=== PATIENT | female | born 1970 | race Caucasian/White ===

== ENCOUNTER → 2017-10-02 15:59 | Outpatient (CLI) | payer MEDICAID, SELFPAY | PROVIDERS: Family Provider Internal Medicine; PCP Internal Medicine; Visit Provider Otolaryngology | DX: J02.9 Acute pharyngitis, unspecified (principal) | CPT/HCPCS: 87070; 87077 ==

== ENCOUNTER → 2018-08-01 06:21 | Outpatient (CLI) | payer MEDICAID, SELFPAY ==
--- NOTE | 2018-08-01 09:21 | STRESSREP ---
Stress Test Report Date: 08-01-2018 Procedure: Pharmacologic stress nuclear imaging study Indications: shortness of breath/dyspnea; fatigue Consent: Per the patient Procedure: The patient underwent pharmacologic (Regadenoson) evaluation with a peak heart rate of 131 beats per minute (76% predicted maximal heart rate) and a peak blood pressure of 144/60 mmHg. The baseline ECG demonstrated normal sinus rhythm . The peak pharmacologic ECG demonstrated no obvious ECG changes . There were no cardiac dysrhythmias pretest, during pharmacologic infusion, or recovery. There was no complaint of chest discomfort during pharmacologic infusion or recovery. The examination was discontinued secondary to completion of protocol. Impression: 1. Pharmacologic (Regadenoson) evaluation 2. Peak pharmacologic ECG with no obvious ECG changes . 3. There were no cardiac dysrhythmias pretest, during pharmacologic infusion, or recovery. 4. Nuclear images pending Myocardial perfusion imaging study: Technique: The patient was injected with 14.8 millicuries of technetium 99m Cardiolite and subsequently rest SPECT Cardiolite nuclear imaging was obtained in the horizontal long, vertical long, and short axis views. The patient underwent pharmacologic (Regadenoson) evaluation with a peak heart rate of 131 beats per minute (76 % percent predicted maximal heart rate) and a peak blood pressure of 144/60 mmHg. The patient was injected with 44.9 millicuries of technetium 99m Cardiolite and subsequently stress SPECT Cardiolite nuclear imaging was obtained in the horizontal long, vertical long, and short axis views. A gated Cardiolite study at peak stress was obtained. Interpretation: Rest and stress SPECT Cardiolite nuclear imaging status post realignment, normalization, and attenuation correction demonstrate a small area of subtle diminished tracer uptake near the distal anteroseptal segments without significant change between rest and stress . There is end systolic thickening and brightening. The gated Cardiolite study demonstrates myocardial thickening and inward wall motion. The reported LVEF is 73 %. Impression: 1. Rest and stress SPECT Cardiolite nuclear imaging demonstrate myocardial perfusion changes. Compounded with the effects of soft tissue attenuation/artifact with no myocardial perfusion changes considered diagnostic for associated stress induced myocardial ischemia or previous myocardial injury/infarction . 2. The gated Cardiolite study reports an LVEF of 73 %. This note was generated with [employer] software. It may contain incorrect words, spelling, and punctuation that were not noted in checking the note before signing.
== END ==
PROVIDERS: Family Provider Internal Medicine; PCP Internal Medicine; Referring Provider Internal Medicine; Visit Provider Internal Medicine
DX: R60.1 Generalized edema (principal); R06.02 Shortness of breath; R07.2 Precordial pain
CPT/HCPCS: 78452; 93017; A9500; A4216; J2785

== ENCOUNTER 2018-08-08 10:42 | Day surgery (SDC) | payer MEDICAID, SELFPAY ==
[2016-08-24 05:40] VITALS: BMI 50.8
--- NOTE | 2018-07-31 09:45 | PCM.HP.BLA ---
History and Physical Date of Admission: 08/08/18 Pre-Op History and Physical HPI: The patient is a 48 year old female presenting for pre-operative visit. She is scheduled for hysteroscopy, dilation and curettage, possible resection, for menorrhagia, thickened endometrium and suspected endometrial polyp on 08/08/18. Procedure discussed along with risks, benefits and complications. Other alternatives discussed for management. Consent form signed? Yes. PAST MEDICAL HISTORY Diagnosis Date ? Abdominal pain, left upper quadrant ? Abdominal pain, unspecified site ? Acquired spondylolisthesis 07/25/2010 ? Acute gastritis without mention of hemorrhage ? Calcaneal spur 10/15/2009 ? Chronic obstructive pulmonary disease (COPD) (HCC) ? Cough ? DEPRESSIVE DISORDER NEC 06/15/2007 ? Depressive disorder, not elsewhere classified ? Diabetes mellitus without mention of complication Diabetes mellitus ? Diabetes mellitus without mention of complication Diabetes mellitus type 2 ? Displacement of lumbar intervertebral disc without myelopathy 12/30/2009 ? Esophageal reflux 10/01/2006 ? Esophagitis, unspecified ? Fibromyalgia 07/25/2010 ? Generalized anxiety disorder Anxiety, Generalized ? Hemorrhage of gastrointestinal tract, unspecified ? Hypertension ? Internal hemorrhoids without mention of complication ? Left carpal tunnel syndrome 09/11/2013 ? Lumbago 08/05/2008 ? Migraine 03/02/2009 ? Mixed stress and urge urinary incontinence ? Myalgia and myositis, unspecified ? Obesity, unspecified Obesity ? ZHAO (obstructive sleep apnea) 05/01/2011 uses C-PAP ? PMH - PAST MEDICAL HISTORY OF allergic syndrome; gets allergy shots ? PMH - PAST MEDICAL HISTORY OF bipolar ? Psoriasis and similar disorders ? Sleep apnea ? 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 Tubular adenoma of colon 02/05/15 Colonoscopy and EGD at [facility] ? Unspecified asthma(493.90) Dr. Grissom saw in the past ? Vitamin D deficiency 11/29/2010 on calcitriol PAST SURGICAL HISTORY Procedure Laterality Date ? DELIVERY ONLY 2001,2003 ? COLONOSCOP W/ OR W/O [facility] SPEC 02/05/2015 Colonoscopy out pt [facility] ? EGD W/O [facility] SPECIMEN W/BX 05/02/06 ? EGD W/O OR W/BRUSH/WASH 02/05/2015 EGD out pt [facility] ? PAST SURGICAL HISTORY OF 07/10 carpal tunnel right hand ? PAST SURGICAL HISTORY OF 1973 upper lip - plastic surgery. ? PAST SURGICAL HISTORY OF 2010 right plantar fasciectomy ? SIGMOIDOSCOPY FLEX DIAG 05/22/06 Current Outpatient Prescriptions: ibuprofen (MOTRIN) 800 mg tablet Take 1 tablet by mouth every 8 hours as needed. FOR PAIN. Disp: 30 tablet Rfl: 1 norethindrone (AYGESTIN) 5 mg tablet Take 1 tablet by mouth as directed. 1 tablet 3 times daily until bleeding stops then twice daily for 2 days then 1 tablet daily for 2 days. Disp: 30 tablet Rfl: 0 Insulin [place], Disposable, (BD INSULIN PEN NEEDLE UF) 29 gauge x 1/2 ndle Use 1 Needle For Each Dose 3-4 Times Daily With Novolog Pen For Meals and At Bedtime if Needed Disp: 100 Each Rfl: 11 perflutren lipid microspheres (DEFINVariad Diagnostics) 1.1 mg/mL injection (to be provided with echo procedure) Inject 1.3 mL intravenously as directed. Disp: 1.3 mL Rfl: 0 oxyCODONE IR (ROXICODONE) 10 mg tab Take 1 tablet by mouth twice daily for 30 days. May take one pill extra per day as needed for exacerbation of pain (not daily).Earliest Fill Date: 06/19/18 Disp: 80 tablet Rfl: 0 oxyCODONE IR (ROXICODONE) 10 mg tab Take 1 tablet by mouth twice daily for 30 days. May take one pill extra per day as needed for exacerbation of pain (not daily).Earliest Fill Date: 07/19/18 Disp: 80 tablet Rfl: 0 [START ON 08/18/2018] oxyCODONE IR (ROXICODONE) 10 mg tab Take 1 tablet by mouth twice daily for 30 days. May take one pill extra per day as needed for exacerbation of pain (not daily).Earliest Fill Date: 08/18/18 Disp: 80 tablet Rfl: 0 losartan (COZAAR) 25 mg tablet take 1 tablet by mouth once daily Disp: 90 tablet Rfl: 3 blood sugar diagnostic (BLOOD GLUCOSE TEST) test strip Test blood sugar(s) 5 times daily. (Test strips brand covered by [employer]) Dx: Type 2 DM - Uncontrolled E11.65 Insulin: Yes Disp: 400 Strip Rfl: 11 FREESTYLE DUSTY 14 DAY READER mis use as directed for BLOOD GLUCOSE as directed Disp: 1 Each Rfl: 0 flash glucose sensor (FREESTYLE DUSTY 14 DAY SENSOR) kit Check sugars as directed for control of DM. E11.65, Z79.4 Disp: 1 Kit Rfl: 11 insulin aspart U-100 (NOVOLOG FLEXPEN U-100 INSULIN) 100 unit/mL inpn WITH FIRST BITE OF FOOD, 30 UNITS W/BREAKFAST, 30 UNITS W/LUNCH, 30 UNITS W/DINNER; MAY ADJUST WITH SLIDING SCALE GIVEN HIGH BLOOD SUGAR Disp: 90 mL Rfl: 1 BASAGLAR KWIKPEN U-100 INSULIN 100 unit/mL (3 mL) inpn inject 55 units subcutaneously twice a day as directed Disp: 45 mL Rfl: 11 fluticasone (FLOVENT HFA) 220 mcg/actuation inhaler Inhale 2 Puffs as instructed twice daily. Disp: 1 Inhaler Rfl: 11 oxyCODONE IR (ROXICODONE) 10 mg tab Take 1 tablet by mouth twice daily for 30 days. May take one pill extra per day as needed for exacerbation of pain (not daily).Earliest Fill Date: 04/20/18 Disp: 80 tablet Rfl: 0 metroNIDAZOLE 0.75 % cream Apply 1 application to affected area twice daily. Disp: 1 Tube Rfl: 1 mupirocin (BACTROBAN) 2 % ointment Apply 1 application to affected area three times daily. Location: torso wounds as directed till healed Disp: 1 Tube Rfl: 0 nystatin (MYCOSTATIN) cream apply to affected area twice a day if needed Disp: 60 g Rfl: 2 Omeprazole 40 mg capsule take 1 capsule by mouth once daily Disp: 90 capsule Rfl: 3 Cholecalciferol, Vitamin D3, 1,000 unit cap Take 1 capsule by mouth once daily. Disp: Rfl: DULoxetine (CYMBALTA) 30 mg capsule take 1 capsule by mouth once daily Disp: 30 capsule Rfl: 11 verapamil SR (CALAN SR, ISOPTIN SR) 120 mg CR tablet take 1 tablet by mouth at bedtime Disp: 30 tablet Rfl: 11 hydroCHLOROthiazide (HYDRODIURIL, ESIDRIX) 25 mg tablet Take 1 tablet by mouth once daily. As needed for swelling from fluid retention Disp: 30 tablet Rfl: 12 atenolol (TENORMIN) 25 mg tablet Take 1 tablet by mouth once daily. Disp: 90 tablet Rfl: 4 CPAP CPAP @ 13 cm of water with humidification. Mask (per patient preference) optional chin strap (if indicated) , filters, tubing, humidifier and lifetime supplies. EPR set at 3. (G47.33) ZHAO (obstructive sleep apnea) Disp: 1 Device Rfl: 0 montelukast (SINGULAIR) 10 mg tablet take 1 tablet by mouth at bedtime Disp: 90 tablet Rfl: 4 COMPOUNDED PRESCRIPTION CPAP supplies--mask per patient preference, tubing, humidifier as needed. G47.33, Z99.89 ZHAO on CPAP Disp: 1 Each Rfl: 0 Blood-Glucose Meter monitoring kit Glucose Meter of Choice (covered by [facility]) - Kit - Dx: Type 2 DM - Uncontrolled E11.65, Insulin Yes Disp: 1 Each Rfl: 0 blood sugar diagnostic (FREESTYLE LITE STRIPS) test strip Test blood sugars 5 times per day and as needed. Dx: E11.65; Insulin: yes Disp: 400 Strip Rfl: 4 cyclobenzaprine (FLEXERIL) 10 mg tablet Take 1 tablet by mouth twice daily as needed. Disp: 60 tablet Rfl: 2 Incontinence Pad, Liner, Disp pads Change pad 3 to 5 times daily. N39.46 Disp: 150 Each Rfl: 5 cycloSPORINE (RESTASIS) 0.05 % ophthalmic emulsion Use 1 Drop in both eyes twice daily. Disp: Rfl: 0 COMPOUNDED PRESCRIPTION Bilateral compression Knee Hi 20-30 mm. ICD 10; 459.81; 782.3 Disp: 1 Each Rfl: 0 Compression Knee Highs KNEE HIGH COMPRESSION STOCKINGS 30-40 MM. DX: (I87.8/459.81) Venous stasis(R60.0782.3) Bilateral edema of lower extremity Disp: 2 Each Rfl: 0 albuterol HFA (PROVENTIL HFA, VENTOLIN HFA) 90 mcg/actuation inhaler Inhale 2 puffs as instructed every 4 hours as needed for wheezing/shortness of breath. Disp: 1 Inhaler Rfl: 5 albuterol 2.5 mg /3 mL (0.083 %) nebulizer solution Use 3 mL via nebulizer every 4 hours as needed for Wheezing/Shortness of Breath. Disp: 50 Vial Rfl: 5 Lancets (FREESTYLE LANCETS) lancets tests sugar 4 to 6 times daily DX:250.02 Insulin dependent (this is corrected RX) Disp: 200 Each Rfl: 11 Blood-Glucose Meter (FREESTYLE LITE METER) Misc monitoring kit 1 Each. Freestyle LITE Meter Kit - DX 250.02 Disp: 1 Each Rfl: 0 Cane Misc Rika 1 Each. Diagnosis: 724.2 Back pain Disp: 1 Device Rfl: 0 No current facility-administered medications for this visit. ALLERGIES: Vicodin [Hydrocodone-Acetaminophen]; Codeine Antitussive Cough; Latex; Relafen [Nabumetone] PERSONAL HISTORY: Social History Marital status: Legally Spouse name: Colby Years of education: Number of children: 3 Social History Main Topics Smoking status: Former Smoker Packs/day: 0.00 Years: 0.00 Quit date: 05/02/1987 Smokeless tobacco: Never Used Comment: social smoker in teens Alcohol use: No Drug use: No Sexual activity: Not Currently Partners with: Male FAMILY HISTORY: FAMILY HISTORY Problem Relation Age of Onset ? Cancer Father AT 71 R/T BLADDER ? Heart Father ? Diabetes Mother ? Asthma Mother ? Heart Mother ? Asthma Sister ? other (ulcers) Sister REVIEW OF SYMPTOMS: GENERAL: denies fevers or chills ENDOCRINOLOGY: has not been on steroids Cardiology : denies palpitations , some CP being evaluated by PCP office Respiratory: denies increased/new SOB or cough Hematology: denies history of prolonged bleeding or easy bruising or VTE Allergy: Denies history of personal or family history of allergy to anesthesia PHYSICAL EXAMINATION: VITALS: There were no vitals taken for this visit. GENERAL: The patient is well nourished, well hydrated in no acute distress. , The patient is oriented to time, place, and person. NECK: Supple. No lynphadenopathy, normal thyroid, no thyromegaly. LUNGS: Clear to auscultation bilaterally. no wheezes, rhonchi or rales HEART: Regular rate and rhythm, Normal heart sounds and No murmurs or gallops pelvic US 07/08/18: Report Summary: Overall impression: difficult to clearly visualize uterus due to position and body ?habitus. Uterus appears top normal size. Endometrial thickness 19.9mm. Right ovary not visualized Left ovary has small simple appearing cyst No free fluid in CDS. Follow- up: f/u as clinically indicated. Indication: Abnormal Uterine Bleeding. History: Last menstrual period: 06/21/2018. 18th day of cycle. Gynecological Ultrasonography: Uterus: normal, anteverted, axial. Size: Longitudinal 117 mm. Anterio- posterior 53 mm. Transverse 66 mm. Volume: 214.3 ml. Endometrium: endometrium clearly visualized. Endometrium thickness total: 19.9 mm. Right Ovary: subvisualized. Left Ovary: normal. Visible. Left Ovary size: 29 mm x 27 mm x 22 mm. Volume: 9.0 ml. Cysts Left Ovary: Cyst 1: Mean value: 19 mm. D1: 22 mm. D2: 15 mm. D3: 20 mm. Volume: 3 ml. Simple cyst. Cul de Sac / Pouch of Alexi: no free fluid visible. Method: transvaginal ultrasound, transabdominal ultrasound, color Doppler, 2 D, 3 D. View: suboptimal - the uterus was not seen clearly because of its position EMB- 07/16/18 secretory endometrium IMPRESSION: menorrhagia, thickened endometrium, suspected endometrial polyp PLAN: The risks/benefits/alternatives and personal involved for the planned hysteroscopy, dilation and curettage, possible polyp resection were reviewed with the patient. Her questions were answered to her satisfaction and she desires to proceed. Consent was signed. I reviewed with her postop instructions and expectations. Surgery is pending results of her cardiac evaluation. She understands if the cardiac testing is abnormal, surgery will likely need to be postponed. Continue Aygestin until surgery. I have reviewed and updated past medical and surgical history, medications and allergies this history and physical was completed on my office on 07/30/2017 Ann Marie Mckeon M.D.
[2018-08-08 11:05] VITALS: BP 141/64; PULSE 72; RESP 16; TEMP 36.6; O2SAT 98; BMI 51.5
[2018-08-08 11:08] LABS: Internal QC Validated? YES +Cl - CLEAR BKGD; Pregnancy, Urine Negative Negative
[2018-08-08 11:16] LABS: Hematocrit 40.9 % (37-47); Hemoglobin 12.6 g/dl (12.0-15.0); Mean Corp Hgb Conc 30.8 g/gl (32-36); Mean Corpuscular Volume 90.9 fL (81-99); Mean Platelet Vol. 9.4 fl (6.2-12.0); Platelet Count 306 K/mm3 (150-450); RBC Distribution Width CV 13.1 % (11.6-14.6); RBC Distribution Width SD 43.2 fl (35.1-43.9); Scan Indicated on CBC? Y/N NO
[2018-08-08] MEDS: Celecoxib 100 MG Capsule PO (11:20)
[2018-08-08] MEDS: Acetaminophen 500 MG Tablet 1000 MG PO (11:20)
[2018-08-08 11:21] LABS: Bedside Glucose 232 mg/dL (70-110)
[2018-08-08 11:29] LABS: Anion Gap 7 (5-15); BUN 13 mg/dL (7-18); BUN/Creat Ratio 14.6 RATIO (10-20); Calcium,Total 8.8 mg/dL (8.5-10.1); Chloride 107 mmol/L (98-107); Creatinine, Serum 0.89 mg/dL (0.55-1.02); EST Glomerular Filtration Rate 72 mL/min (>60); Est Glom Filt Rate - Afr Amer 87 mL/min (>60); Estimated Creatinine Clearance 60.47 ml/min; Glucose 209 mg/dL (74-106); Potassium 4.1 mmol/L (3.5-5.1); Sodium Level 136 mmol/L (136-145)
--- NOTE | 2018-08-08 12:15 | EMB_PTH ---
PATIENT: MYLES YEAGER ABUACCT #:[id number] [place] [facility] [id number] AGE/SX: 48/F ROOM: RE08/08/[address]: Dr. Ann Marie Mckeon MD : 1970 BED: DIS: 08/08/2018 SPEC #: [id number] RECD: 08/08/18 14:10 STATUS: NILE MATOSTravis #: [id number] KENZIE: 08/08/18 12:[address]: Ann Marie Mckeon DEPT: SURGICAL PATHOLOGY RECD BY: Bryant Stockton ENTERED: 08/08/18 14:39 SP TYPE: ENDOM BX/C OTHR DR: Dr. Debo Bowers MD Tissues: Endometrium, NOS Procedures: Surgery Specimen Level IV HEADER OPERATION: Hysteroscopy, D & C, Symphion PRE-OP DIAGNOSIS: Menorrhagia, thickened endometrium, suspected endometrial polyp TISSUE SUBMITTED: Endometrial curettings MICROSCOPIC DIAGNOSIS Endometrium, curettings: Extensive benign stromal hyperplasia suggestive of exogenous hormonal effect. Mildly disordered weakly proliferative endometrium. AM:edgar 08/09/18 MICROSCOPIC DESCRIPTION Slides are reviewed. GROSS DESCRIPTION Received in fixative is one container labeled with the patient's name and designated endometrial curettings. The specimen consists of multiple irregular fragments of pink-jones soft tissue that in aggregate measure 8.5 x 7.5 x 0.3 cm. The specimen is totally submitted in six cassettes. / AM:edgar 08/08/18 TC:5 CPT: 68183
--- NOTE | 2018-08-08 13:06 | DCINST_ITS ---
Discharge Diet: No Restrictions Discharge Activity: Return to Normal Activity, May Shower, May Take a Tub Bath - in 2 weeks. May shower in (days): 1 May resume sexual activity in: 2 weeks Call your doctor if your incision/area has: Sudden Increased Bleeding, Foul Smelling Discharge Call your doctor if you observe: Fever of 101 or Higher, Inability to urinate, Using more than one pad per hour - for 2 hrs in a row Allergies/Adverse Reactions: Allergies codeine Allergy (Verified 08/01/18 15:03) Nausea hydrocodone bitartrate [From Vicodin] Adverse Reaction (Verified 08/01/18 15:02) Nausea latex Adverse Reaction (Verified 08/01/18 15:02) Rash nabumetone [From Relafen] Adverse Reaction (Verified 08/07/18 15:26) Upset Stomach SEASONAL Allergy (Mild, Uncoded 08/01/18 15:02) Other Medications to take at Discharge Atenolol [Tenormin (beta erick)] 12.5 mg PO QHS 07/05/13 Duloxetine Hcl [Cymbalta] 30 mg PO DAILY 07/05/13 Novolog Flexpen 30 units SC TID 07/05/13 Fluticasone 220 Mcg [Flovent 220 Mcg] 2 puff INHALATION BID 02/03/15 Omeprazole [Prilosec] 40 mg PO QHS 02/03/15 Oxycodone CR [Oxycontin] 10 mg PO TID PRN 02/03/15 Hydrochlorothiazide [Hctz] 12.5 mg PO DAILY PRN 08/01/18 Insulin Glargine,Hum.rec.anlog [Basaglar Kwikpen U-100] 110 unit SQ QHS 08/01/18 Montelukast [Singulair] 10 mg PO DAILY 08/01/18 [place]rotone 08/08/18 Primary Care Physician: Debo Bowers MD [Primary Care Provider] - Test Results: Test results from this visit will be discussed in further detail at your follow- up appointment, if applicable. Please Follow Up With: Ann Marie Mckeon MD - [phone] When: 2-4 weeks or as needed
--- NOTE | 2018-08-08 13:39 | OP.PCM_ITS ---
Report of Operation Date of Procedure: 08/08/18 Pre-Operative Diagnosis: AUB, thickened endometrium Post-Operative Diagnosis: same Surgery/Procedure Performed:: hysteroscopy, dilation and curettage with Symphion device Description of Surgical Findings:: thickened endometrium, normal cervix and vagina associate professor of education: Casandra Banda, MS3 Type of Anesthesia:: MAC/Supplemental/Local Special Medications: none Specimen's removed: Endometrial curetting Drains: none Estimated Blood Loss (mL): 20 Fluids Replaced: 800 cc LR Description of Procedure: The patient was taken to the OR where she was prepped and draped in dorsal lithotomy position. The weighted speculum was placed in the vagina and the anterior lip of the cervix was grasped with a single-tooth tenaculum. A paracervical block was administered with 1% Xylocaine. The cervix was dilated serially with Hegar dilators. The Implanon hysteroscope was placed into the uterine cavity and thickened endometrium was noted. No discrete polyps or fibroids. Bilateral tubal ostia were identified. Symphony on resection device was placed through the hysteroscope. Resection of the thickened endometrium and a polypoid appearing lesions was performed. At the end of the resection, there were no other discrete abnormalities and the endometrium appeared normal shape and size.. The instruments were removed from the vagina. The specimen was handed off and sent to pathology. All sponge and needle counts were correct. Vaginal sweep was performed by me. The patient was awakened and taken to the recovery room in stable condition. Hysteroscopic fluid deficit was 150 cc of normal saline. Grafts/Implants Used: none - Complications none - Admit VTE Documentation VTE Present on Admission: No VTE Mechan Device Prophylaxis: SCD's VTE Pharm Prophylaxis ordered?: Yes Reason prophylaxis not ordered:: Procedure Not Indicated
[2018-08-08 13:45] VITALS: BP 116/78; BP 141/64; PULSE 86; RESP 16; TEMP 36.9; O2SAT 93
[2018-08-08 13:50] VITALS: BP 111/65; BP 141/64; PULSE 86; RESP 16; O2SAT 94
[2018-08-08 13:50] LABS: Bedside Glucose 172 mg/dL (70-110)
[2018-08-08 13:55] VITALS: BP 106/67; BP 141/64; PULSE 84; RESP 16; O2SAT 98
[2018-08-08 14:00] VITALS: BP 113/70; BP 141/64; PULSE 86; RESP 16; TEMP 37.2; O2SAT 99
[2018-08-08 15:20] VITALS: BP 141/64
== END 2018-08-08 15:24 | disposition home or self-care (01) ==
LOC: SDC 10:43 → AC 10:44
PROVIDERS: Family Provider Internal Medicine; PCP Internal Medicine; Referring Provider Obstetrics & Gynecology; Visit Provider Obstetrics & Gynecology
PROC: 0UB98ZZ Excision of Uterus, Via Natural or Artificial Opening Endoscopic (ICD-10-PCS; CPT 58558; principal; 2018-08-08 12:05)
DX: N85.01 Benign endometrial hyperplasia (principal); J44.9 Chronic obstructive pulmonary disease, unspecified; F32.9 Major depressive disorder, single episode, unspecified; E11.9 Type 2 diabetes mellitus without complications; K21.0 Gastro-esophageal reflux disease with esophagitis; F41.9 Anxiety disorder, unspecified; I10 Essential (primary) hypertension; G47.33 Obstructive sleep apnea (adult) (pediatric); E55.9 Vitamin D deficiency, unspecified; J45.909 Unspecified asthma, uncomplicated; E66.9 Obesity, unspecified; Z68.43 Body mass index [BMI] 50.0-59.9, adult; Z79.4 Long term (current) use of insulin; Z79.891 Long term (current) use of opiate analgesic; Z79.51 Long term (current) use of inhaled steroids; Z79.899 Other long term (current) drug therapy; Z87.891 Personal history of nicotine dependence
CPT/HCPCS: 58558; 36415; 80048; 81025; 82962; 85027; 88305; J7120; J2405

== ENCOUNTER → 2019-01-07 | Outpatient (CLI) | payer MEDICAID, SELFPAY ==
[2019-01-07 13:34] VITALS: BMI 51.5
--- NOTE | 2019-01-07 13:53 | RAD_ITS ---
STUDY: X-RAY - LEFT WRIST REASON FOR EXAM: Painful lump at the anterior lateral wrist for 3 months. TECHNIQUE: 3 view(s) of the wrist were obtained. COMPARISON: None. FINDINGS: Normal visualized distal radius and ulna. Normal radiocarpal articulation. Normal distal radioulnar articulation. Normal carpal bones. There is a small bone island in the distal pole of the scaphoid. Normal carpal articulations. Normal carpometacarpal articulation of the thumb. Normal second through fifth carpometacarpal articulations. Normal visualized metacarpal bones. The soft tissue structures are unremarkable. RAD/Wrist min 3 Views IMPRESSION: Normal x-ray examination of the left wrist. Electronically Signed: Julian Nazario MD at 10:53 EDT Tel , Service support ,
== END | disposition home or self-care (01) ==
LOC: HPRAD 13:51
PROVIDERS: Family Provider Internal Medicine; PCP Internal Medicine; Referring Provider Orthopaedic Surgery; Visit Provider Orthopaedic Surgery
DX: M25.532 Pain in left wrist (principal); R22.9 Localized swelling, mass and lump, unspecified
CPT/HCPCS: 73110

== ENCOUNTER → 2019-01-08 13:54 | Outpatient (CLI) | payer MEDICAID, SELFPAY ==
[2019-01-07 13:34] VITALS: BMI 51.5
--- NOTE | 2019-01-08 13:56 | US_ITS ---
STUDY: SUPERFICIAL ULTRASOUND - LEFT WRIST REASON FOR EXAM: Female, 48 years old. Left breast lump, anterior, painful TECHNIQUE: A superficial ultrasound was performed with real-time and static navarrete-scale imaging. COMPARISON: None. FINDINGS: Left lateral anterior wrist area of lump. Cystlike focus partially contained within the subcutaneous fat, partially protruding into the deeper soft tissues, potentially associated with tendon sheath, partially compressible, no apparent hyperemia on color Doppler, minimal internal debris, sharply circumscribed margins. 9.3 x 9.6 x 7.7 mm. US/Other Unlisted US Procedure IMPRESSION: Cystlike fluid collection as described above, favoring ganglion cyst. There are no acute inflammatory features in the surrounding soft tissues. Electronically Signed: Pineda Meredith MD at 17:37 EDT Tel , Service support ,
== END ==
PROVIDERS: Family Provider Internal Medicine; PCP Internal Medicine; Referring Provider Orthopaedic Surgery; Visit Provider Orthopaedic Surgery
DX: M67.439 Ganglion, unspecified wrist (principal)
CPT/HCPCS: 76999

== ENCOUNTER 2019-01-13 05:31 | Day surgery (SDC) | payer MEDICAID, SELFPAY ==
[2019-01-07 13:34] VITALS: BMI 51.5
--- NOTE | 2019-01-10 18:50 | PCM.HP.BLA ---
History and Physical Date of Admission: 01/13/19 HISTORY AND PHYSICAL ? Malathi Brito Al [facility] 1970 ? REFERRING PHYSICIAN: ??Debo Bowers MD ? CHIEF COMPLAINT: ??Consult ? HPI: The patient is a 48 year old female referred for endoscopy. ?Malathi notes a personal history of colon polyp on her last colonoscopy, which was performed by Dr. Mancia on 02/05/15 at [facility]. ?This returned as an adenomatous polyp.??Patient also had an upper endoscopy at that time which showed mild gastritis.??Patient?NOTES recent change in bowel habits, states around once a week will have yellow stools which go from constipation to loose. ?She also complains of constant left-sided upper abdominal discomfort without particular alleviating factors. ?Food of any type seems to aggravate symptoms. ?Associated symptoms include nausea and bloating. ?Notes has been taking gas medication with some minimal relief. ? ? Patient's past medical history is significant for gastritis, COPD, depression, type II diabetes mellitus, GERD, obstructive sleep apnea, psoriasis, morbid obesity. ?Patient denies any problems with sedation in the past. ?Had stress test earlier this year which showed no evidence of ischemia. ? ? ? PAST?MEDICAL?HISTORY PAST MEDICAL HISTORY Diagnosis Date ? Abdominal pain, left upper quadrant ? ? Abdominal pain, unspecified site ? ? Acquired spondylolisthesis 07/25/2010 ? Acute gastritis without mention of hemorrhage ? ? Calcaneal spur 10/15/2009 ? Chronic obstructive pulmonary disease (COPD) (HCC) ? ? Cough ? ? DEPRESSIVE DISORDER NEC 06/15/2007 ? Depressive disorder, not elsewhere classified ? ? Diabetes mellitus without mention of complication ? ? Diabetes mellitus ? Diabetes mellitus without mention of complication ? ? Diabetes mellitus type 2 ? Displacement of lumbar intervertebral disc without myelopathy 12/30/2009 ? Esophageal reflux 10/01/2006 ? Esophagitis, unspecified ? ? Fibromyalgia 07/25/2010 ? Generalized anxiety disorder ? ? Anxiety, Generalized ? Hemorrhage of gastrointestinal tract, unspecified ? ? Hypertension ? ? Internal hemorrhoids without mention of complication ? ? Left carpal tunnel syndrome 09/11/2013 ? Lumbago 08/05/2008 ? Migraine 03/02/2009 ? Mixed stress and urge urinary incontinence ? ? Myalgia and myositis, unspecified ? ? Obesity, unspecified ? ? Obesity ? ZHAO (obstructive sleep apnea) 05/01/2011 ? uses C-PAP ? PMH - PAST MEDICAL HISTORY OF ? ? allergic syndrome; gets allergy shots ? PMH - PAST MEDICAL HISTORY OF ? ? bipolar ? Psoriasis and similar disorders ? ? Sleep apnea ? ? 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 Tubular adenoma of colon 02/05/15 ? Colonoscopy and EGD at [facility] ? Unspecified asthma(493.90) ? ? Dr. Grisosm saw in the past ? Vitamin D deficiency 11/29/2010 ? on calcitriol ? ? PAST?SURGICAL?HISTORY PAST SURGICAL HISTORY Procedure Laterality Date ? DELIVERY ONLY ? 2001,2003 ? COLONOSCOP W/ OR W/O [facility] SPEC ? 02/05/2015 ? Colonoscopy out pt [facility] ? EGD W/O [facility] SPECIMEN W/BX ? 05/02/06 ? EGD W/O OR W/BRUSH/WASH ? 02/05/2015 ? EGD out pt [facility] ? HYSTEROSCOPY, SURGICAL; WITH SAMPLI ? 08/08/2018 ? AUB, menorrhagia ? PAST SURGICAL HISTORY OF ? 07/10 ? carpal tunnel right hand ? PAST SURGICAL HISTORY OF ? 1973 ? upper lip - plastic surgery. ? PAST SURGICAL HISTORY OF ? 2010 ? right plantar fasciectomy ? SIGMOIDOSCOPY FLEX DIAG ? 05/22/06 ? ? CURRENT?MEDICATIONS ? Current Outpatient Medications: oxyCODONE IR (ROXICODONE) 10 mg tab Take 1 tablet by mouth twice daily for 30 days. May take one pill extra per day as needed for exacerbation of pain (not daily). cyclobenzaprine (FLEXERIL) 10 mg tablet Take 0.5-1 tablets by mouth twice daily as needed. insulin aspart U-100 (NOVOLOG FLEXPEN U-100 INSULIN) 100 unit/mL (3 mL) inpn WITH FIRST BITE OF FOOD, 30 UNITS W/BREAKFAST, 30 UNITS W/LUNCH, 30 UNITS W/DINNER; MAY ADJUST WITH SLIDING SCALE GIVEN HIGH BLOOD SUGAR triamcinolone acetonide (NASACORT) 55 mcg nasal inhaler Use 2 Sprays in the nose once daily. (Patient taking differently: Use 2 Sprays in the nose as needed. ) albuterol HFA (PROVENTIL HFA, VENTOLIN HFA) 90 mcg/actuation inhaler Inhale 2 puffs as instructed every 4 hours as needed for wheezing/shortness of breath. montelukast (SINGULAIR) 10 mg tablet Take 1 tablet by mouth daily at bedtime. atenolol (TENORMIN) 25 mg tablet Take 1 tablet by mouth once daily. DULoxetine (CYMBALTA) 30 mg capsule Take 1 capsule by mouth once daily. omeprazole (PRILOSEC) 20 mg capsule Take 1 capsule by mouth daily before breakfast. 1/2 hr before meal. As directed. flash glucose scanning reader (FREESTYLE DUSTY 14 DAY READER) [facility] [place] as directed for BLOOD GLUCOSE. Replace every 14 days ibuprofen (MOTRIN) 800 mg tablet take 1 tablet by mouth every 8 hours if needed for pain Insulin [place], Disposable, (BD INSULIN PEN NEEDLE UF) 29 gauge x 1/2 ndle Use 1 Needle For Each Dose 3-4 Times Daily With Novolog Pen For Meals and At Bedtime if Needed blood sugar diagnostic (BLOOD GLUCOSE TEST) test strip Test blood sugar(s) 5 times daily. ?(Test strips brand covered by [employer]) Dx: Type 2 DM - Uncontrolled E11.65 ?Insulin: Yes flash glucose sensor (FREESTYLE DUSTY 14 DAY SENSOR) kit Check sugars as directed for control of DM. ?E11.65, Z79.4 BASAGLAR KWIKPEN U-100 INSULIN 100 unit/mL (3 mL) inpn inject 55 units subcutaneously twice a day as directed fluticasone (FLOVENT HFA) 220 mcg/actuation inhaler Inhale 2 Puffs as instructed twice daily. metroNIDAZOLE 0.75 % cream Apply 1 application to affected area twice daily. (Patient taking differently: Apply 1 application to affected area as needed. ) nystatin (MYCOSTATIN) cream apply to affected area twice a day if needed Cholecalciferol, Vitamin D3, 1,000 unit cap Take 1 capsule by mouth once daily. CPAP CPAP @ 13 cm of water with humidification. Mask (per patient preference) optional chin strap (if indicated) , filters, tubing, humidifier and lifetime supplies. EPR set at 3. (G47.33) ZHAO (obstructive sleep apnea) COMPOUNDED PRESCRIPTION CPAP supplies--mask per patient preference, tubing, humidifier as needed. ?G47.33, Z99.89 ?ZHAO on CPAP Blood-Glucose Meter monitoring kit Glucose Meter of Choice (covered by [employer]) - Kit - Dx: ?Type 2 DM - Uncontrolled E11.65, Insulin Yes blood sugar diagnostic (FREESTYLE LITE STRIPS) test strip Test blood sugars 5 times per day and as needed. ?Dx: E11.65; Insulin: yes Incontinence Pad, Liner, Disp pads Change pad 3 to ?5 times daily. N39.46 COMPOUNDED PRESCRIPTION Bilateral compression Knee Hi 20-30 mm. ?ICD 10; ?459.81; 782.3 Compression Knee Highs KNEE HIGH COMPRESSION STOCKINGS 30-40 MM. ?DX: ?(I87.8/459.81) Venous stasis(R60.0782.3) Bilateral edema of lower extremity Lancets (FREESTYLE LANCETS) lancets tests sugar 4 to 6 times daily DX:250.02 ???Insulin dependent (this is corrected RX) Blood-Glucose Meter (FREESTYLE LITE METER) Misc monitoring kit 1 Each. Freestyle LITE Meter Kit - DX 250.02 Cane Misc Rika 1 Each. Diagnosis: 724.2 Back pain peg 3350-Electrolytes (GOLYTELY) 236-22.74-6.74 -5.86 gram suspension Take 4,000 mL by mouth one time only for 1 dose. [START ON 01/15/2019] oxyCODONE IR (ROXICODONE) 10 mg tab Take 1 tablet by mouth twice daily for 30 days. May take one pill extra per day as needed for exacerbation of pain (not daily).Earliest Fill Date: 01/15/19 [START ON 02/14/2019] oxyCODONE IR (ROXICODONE) 10 mg tab Take 1 tablet by mouth twice daily for 30 days. May take one pill extra per day as needed for exacerbation of pain (not daily).Earliest Fill Date: 02/14/19 fluconazole (DIFLUCAN) 150 mg tablet Take ?by mouth. Take at onset of yeast infection. Repeat after 5 to 7 days if ongoing symptoms. May treat recurrent episodes as needed. (Patient not taking: Reported on 01/09/2019 ) hydroCHLOROthiazide (HYDRODIURIL, ESIDRIX) 25 mg tablet Take 1 tablet by mouth once daily. As needed for swelling from fluid retention (Patient not taking: Reported on 01/09/2019 ) verapamil SR (CALAN SR, ISOPTIN SR) 120 mg CR tablet Take 1 tablet by mouth daily at bedtime. (Patient not taking: Reported on 01/09/2019 ) mupirocin (BACTROBAN) 2 % ointment Apply 1 application to affected area three times daily. Location: torso wounds as directed till healed (Patient not taking: Reported on 01/09/2019 ) perflutren lipid microspheres (DEFINITY) 1.1 mg/mL injection (to be provided with echo procedure) Inject 1.3 mL intravenously as directed. (Patient not taking: Reported on 01/09/2019 ) losartan (COZAAR) 25 mg tablet take 1 tablet by mouth once daily (Patient not taking: Reported on 01/09/2019) cycloSPORINE (RESTASIS) 0.05 % ophthalmic emulsion Use 1 Drop in both eyes twice daily. ? No current facility-administered medications for this visit.? ? ALLERGIES:?Vicodin [Hydrocodone-Acetaminophen]; Codeine Antitussive Cough; Latex; Relafen [Nabumetone] ? PERSONAL HISTORY:? SOCIAL?HISTORY Social History ??Socioeconomic History ?Marital status: Legally ?Spouse name: Colby ?Number of children: 3 ?Years of education: Not on file ?Highest education level: Not on file ??Occupational History ?Not on file ??Social Needs ?Financial resource strain: Not on file ?Food insecurity: ?Worry: Not on file ?Inability: Not on file ?Transportation needs: ?Medical: Not on file ?Non-medical: Not on file ??Tobacco Use ?Smoking status: Former Smoker ?Quit date: 05/02/1987 ?Years since quittin.7 ?Smokeless tobacco: Never Used ?Tobacco comment: social smoker in teens ??Substance and Sexual Activity ?Alcohol use: No ?Drug use: No ?Sexual activity: Not Currently ?Partners: Male ??Lifestyle ?Physical activity: ?Days per week: Not on file ?Minutes per session: Not on file ?Stress: Not on file ??Relationships ?Social connections: ?Talks on phone: Not on file ?Gets together: Not on file ?Attends christianity service: Not on file ?Active member of club or organization: Not on file ?Attends meetings of clubs or organizations: Not on file ?Relationship status: Not on file ?Intimate partner violence: ?Fear of current or ex partner: Not on file ?Emotionally abused: Not on file ?Physically abused: Not on file ?Forced sexual activity: Not on file ??Other Topics ?Concerns: ?Not on file ??Social History Narrative ?Not on file ? FAMILY HISTORY:? FAMILY?HISTORY FAMILY HISTORY Problem Relation Age of Onset ? Cancer Father ? AT 71 R/T BLADDER ? Heart Father ? ? Diabetes Mother ? ? Asthma Mother ? ? Heart Mother ? ? Brain Cancer Mother ? ? Asthma Sister ? ? other (ulcers) Sister ? ? REVIEW OF SYMPTOMS: ??The review of systems data was entered by the nurse and reviewed by me ? Nursing Notes: Ayala Worley RN ?01/09/2019 ?4:33 PM ?Signed REVIEW OF SYSTEMS: ?General:???The patient notes fatigue, denies weight loss, denies weight gain, notes feeling hot, and notes feelings of cold. ?Eyes: ?The patient denies glaucoma, denies eye injury/surgery, does not wear glasses or contacts. ?Ear/Nose/Throat: ?The patient notes allergies, denies hayfever, denies ear infections, and denies bloody noses. ?Cardiovascular: ?The patient denies chest pain, denies heart disease, denies high blood pressure,denies cardiac stent, denies prior heart attack, denies irregular heart beat, denies high cholesterol, ?denies poor circulation, denies heart failure, other cardiac issues, denies claudication, denies cold feet, denies peripheral arterial stent. ?Respiratory: ?The patient denies tuberculosis, denies pneumonia, denies frequent cough, denies pulmonary embolism, notes shortness of breath, and denies coughing up blood. ?Gastrointestinal: ?The patient denies difficulty swallowing, notes acid reflux, denies ulcers, denies vomiting, denies jaundice/hepatitis, denies gallbladder problems, denies black or tarry stools, denies hemorrhoids, denies bleeding from rectum, denies diverticulitis, notes constipation, denies diarrhea, denies loss of stool control, and denies hernias. ?Kidney/Bladder: ?The patient denies kidney stones, denies urine infections, and denies bloody urine. ?Skin: ?The patient denies a history of skin cancer, denies bleeding/changing moles, and denies a history of skin rash. ?Neurologic: ?The patient denies a history of epilepsy/convulsions, notes headaches, denies head/spinal injuries, and denies stroke/TIA. ?Psychiatric: ?The patient denies psychiatric medications, notes depression, and denies voices, denies substance abuse. ?Endocrine: ?The patient denies thyroid disorders, notes diabetes, and denies hormonal problems. ?Hematologic: ?The patient denies a history of bruising, denies bleeding, and denies anemia, denies blood clots. ?Infections: ?The patient denies a history of measles and mumps, denies rheumatic fever, and denies sexually transmitted diseases. ?Musculoskeletal: ?The patient notes back pain/injury, notes back problems, notes sciatica, denies knee/foot trouble, notes arthritis, or denies gout. ? ? When was patient's last Mammogram screening? unknown ? ?Last Colonoscopy: ?02/2015 ? Ayala Worley RN ? PHYSICAL EXAMINATION: ? General: ?The patient is 48 year old female, well nourished, well hydrated in no acute distress. ?The patient is oriented to time, place, and person. ? VITALS:?Blood pressure 110/56, pulse 104, temperature 36.3 ?C (97.4 ?F), temperature source Temporal Artery, height 158.1 cm (5' 2.25), weight 131.1 kg (289 lb), SpO2 95 %.?Body mass index is 52.44 kg/m?.? ? HEENT: ?Normal cephalic, ataumatic, pupils are equally round, sclera are anicteric, mucous membranes are moist, oropharynx is clear. ?Neck has no masses, asymmetry or lymphadenopathy. ? ? Respiratory: ?Clear to auscultation and percussion. ?Normal respiratory excursion and pattern. ? Cardiac: ?Examination is regular rate and rhythm. ?Normal S1/S2 ? Abdominal exam: ?Soft, nontender, ?with no palpable masses. ?No hepatosplenomegaly. ?No palpable hernias. ? Extremities: ?no clubbing, cyanosis or edema. ?No adenopathy. ? LABORATORY VALUES: As Noted ? RADIOLOGIC STUDIES: ?As Noted ? ? Assessment ? IMPRESSION:?encounter for surveillance colonoscopy due to personal history of colon polyps. ?Abdominal pain, bloating and nausea-plan for EGD in addition to colonoscopy ? PLAN: ?I have reviewed my findings with the surgeon. ?Will plan for upper and lower?endoscopy. ??We discussed the risks and benefits of the planned endoscopy. ?I have informed the patient that complications can occur including failure to complete the endoscopy and perforation. ?The patient had the opportunity to ask questions concerning the planned endoscopy. ?My staff has also explained the procedure to the patient in understandable terms and has given the patient printed material concerning the procedure. ?The patient freely consents to surgery. ? I plan to use?Golytely?bowel preparation ? Patient instructed to contact PCP for instructions regarding diabetic medication, which may require adjustment during bowel preparation and/or day of procedure. ?She may continue her other routine medications as usual ? ? We will plan for Monitored Anesthetic Care. ? ? Diagnoses:?(Z86.010) History of colonic polyps ?(primary encounter diagnosis) (R14.0) Abdominal bloating (R10.9) Left lateral abdominal pain (R11.0) Nausea (R19.4) Change in bowel habits ? ? Ling Bojorquez PA-C
[2019-01-13] VITALS (8 sets, daily range): BP systolic 109–142; BP diastolic 52–86; PULSE 75–86; RESP 14–16; TEMP 36–36.6; O2SAT 94–96; BMI 50.6
--- NOTE | 2019-01-13 | IMM_PTH ---
PATIENT: MYLES YEAGER ABUACCT #:[id number] LOC: EN U#:[id number] AGE/SX: 48/F ROOM: RE01/13/[address]: Dr. Pineda Jha MD : 1970 BED: DIS: 01/13/2019 SPEC #: [id number] RECD: 01/14/19 12:41 STATUS: SOUYenny REQ #: [id number] KENZIE: 01/13/19 00:[address]: Pineda Jha DEPT: IMMUNOHISTOCHEMISTRY RECD BY: Dora Suh ENTERED: 01/14/19 12:42 SP TYPE: IMMUNO OTHR DR: Dr. Debo Bowers MD Tissues: B - Stomach, NOS C - Gastric mucous membrane Procedures: H Pylori (initial) P53 (initial) PHYSICIAN & INSTITUTION [place] [id number] SPECIMEN INFORMATION: Tissue Source: B - Antral biopsy, C - GE junction biopsy Clinical Info: Colon polyps, abdominal pain, bloating, nausea Specimen Number: [id number] B & C CPT code: 66165 x2 METHODOLOGY: Deparaffinized sections of prefer/formalin-fixed tissue or PAP/DQ stained slides are incubated with monoclonal/polyclonal antibodies/oligonucleotide probes. Localization is made via biotin free immunoperoxidase method. Appropriate controls are performed and reacted as expected. Results on target cell population are indicated in the following table: RESULTS: ANTIBODY / CLONE RESULT Block B H Pylori (polyclonal) negative Block C P53 (DO-7) negative These tests were developed and their performance characteristics determined by [facility]. They may not have been cleared or approved by the U.S. Food and Drug Administration. The FDA has determined that such clearance or approval is not necessary. INTERPRETATION: A. Antral biopsy: Negative for Helicobacter pylori organisms. C. GE junction biopsy: No evidence of dysplasia. AM:edgar 01/15/19
[2019-01-13 05:57] LABS: Internal QC Validated? YES +Cl - CLEAR BKGD; Pregnancy, Urine Negative Negative
[2019-01-13 06:16] LABS: Bedside Glucose 96 mg/dL (70-110)
--- NOTE | 2019-01-13 06:30 | EGD_PTH ---
PATIENT: MYLES YEAGER ABUACCT #:[id number] LOC: EN U#:[id number] AGE/SX: 48/F ROOM: RE01/13/[address]: Dr. Pineda Jha MD : 1970 BED: DIS: 01/13/2019 SPEC #: [id number] RECD: 01/13/19 10:22 STATUS: NILE VLADISLAV #: [id number] KENZIE: 01/13/19 06:[address]: Pineda Jha DEPT: SURGICAL PATHOLOGY RECD BY: Arti Wells ENTERED: 01/13/19 12:02 SP TYPE: EGD [facility]OP[facility] DR: Dr. Debo Bowers MD Tissues: A - Jejunum, NOS B - Gastric mucous membrane C - Gastric mucous membrane Procedures: Surgery Specimen Level IV HEADER OPERATION: Colonoscopy, EGD ([facility] [place]) PRE-OP DIAGNOSIS: Personal history of colon polyps, abdominal pain, bloating, nausea TISSUE SUBMITTED: A. Jejunal biopsy, B. Antral biopsy, C. GE junction biopsy MICROSCOPIC DIAGNOSIS A. Jejunum, biopsy: Minimal nonspecific chronic inflammation. B. Gastric antrum, biopsy: Mild chronic gastritis. See comment. C. Gastroesophageal junction, biopsy: Mild chronic inflammation. No evidence of goblet cell metaplasia. Focal changes of reflux. See comment. AM:edgar 01/14/19 COMMENT B. The results of immunohistochemistry for Helicobacter pylori will be reported separately ([id number]). C. Immunohistochemistry ([id number]) supports the above diagnosis. AB/PAS with matched control is negative for intestinal type mucin. MICROSCOPIC DESCRIPTION Slides are reviewed. GROSS DESCRIPTION A - Received in fixative is one container labeled with the patient's name and designated jejunal biopsy. The specimen consists of one irregular fragment of light jones soft tissue that measures 0.3 x 0.3 x 0.1 cm. The specimen is totally submitted in one cassette. B - Received in fixative is one container labeled with the patient's name and designated antral biopsy. The specimen consists of one irregular fragment of light jones soft tissue that measures 0.6 x 0.3 x 0.1 cm. The specimen is totally submitted in one cassette. C - Received in fixative is one container labeled with the patient's name and designated GE junction biopsy. The specimen consists of one irregular fragment of light jones soft tissue that measures 0.3 x 0.2 x 0.1 cm. The specimen is totally submitted in one cassette. / AM:edgar 01/13/19 TC:3 CPT: 53560 x3, 46941 x1
--- NOTE | 2019-01-13 07:18 | OP.ENDO_ITS ---
01/13/2019 Debo Bowers [address] [place] [address] Re : Upper GI endoscopy procedure for Malathi Jarrett Dear Dr. Bowers This procedure was performed on Sunday, January 13, 2019. My impressions and recommendations are as follows: Impressions : - Normal examined jejunum. Biopsied. - Normal examined duodenum. - Normal stomach. Biopsied. - Normal lower third of esophagus. Biopsied. Recommendations : - Return to physician sales office assistant in 1 week. - Continue present medications. My findings are described in the full procedure note, which is enclosed. If I can be of further assistance, please feel free to contact me at Doctor phone number(s): , Work: . Sincerely, Pineda Jha MD 01/13/2019 7:17:26 AM This report has been signed electronically.
--- NOTE | 2019-01-13 07:20 | OP.ENDO_ITS ---
01/13/2019 Debo Bowers [address] [place] [address] Re : Colonoscopy procedure for Malathi Jarrett Dear Dr. Bowers This procedure was performed on Sunday, January 13, 2019. My impressions and recommendations are as follows: Impressions : - The entire examined colon is normal on direct and retroflexion views. - No specimens collected. Recommendations : - Discharge patient to home. - Resume previous diet. - Repeat colonoscopy in 10 years for screening purposes. - Return to physician payroll assistant in 1 week. - Continue present medications. My findings are described in the full procedure note, which is enclosed. If I can be of further assistance, please feel free to contact me at Doctor phone number(s): , Work: . Sincerely, Pineda Jha MD 01/13/2019 7:20:34 AM This report has been signed electronically.
== END 2019-01-13 08:00 | disposition home or self-care (01) ==
LOC: EN 05:32 → AC 05:33
PROVIDERS: Anesthesiology; Family Provider Internal Medicine; PCP Internal Medicine; Referring Provider Surgery; Visit Provider Surgery
PROC: 0DJD8ZZ Inspection of Lower Intestinal Tract, Via Natural or Artificial Opening Endoscopic (ICD-10-PCS; CPT 45378; principal; 2019-01-13 06:25)
DX: K29.50 Unspecified chronic gastritis without bleeding (principal); J44.9 Chronic obstructive pulmonary disease, unspecified; E11.9 Type 2 diabetes mellitus without complications; K21.0 Gastro-esophageal reflux disease with esophagitis; R19.4 Change in bowel habit; Z79.4 Long term (current) use of insulin; Z86.010 Personal history of colon polyps; Z87.891 Personal history of nicotine dependence; R14.0 Abdominal distension (gaseous); R10.9 Unspecified abdominal pain
CPT/HCPCS: 43239; 45378; 81025; 82962; 88305; 88342; J7120; J2405

== ENCOUNTER 2019-01-22 07:56 | Day surgery (SDC) | payer MEDICAID, SELFPAY ==
[2019-01-14 10:20] VITALS: BMI 50.6
[2019-01-22] VITALS (7 sets, daily range): BP systolic 102–140; BP diastolic 57–98; PULSE 82–95; RESP 16–17; TEMP 36.2–36.8; O2SAT 94–96; BMI 50.6
[2019-01-22 08:27] LABS: Internal QC Validated? YES +Cl - CLEAR BKGD; Pregnancy, Urine Negative Negative
[2019-01-22 08:35] LABS: Bedside Glucose 184 mg/dL (70-110)
[2019-01-22] MEDS: Lactated Ringers 1,000 ML 75 ML IV (08:39)
--- NOTE | 2019-01-22 09:30 | GANG_PTH ---
PATIENT: MYLES YEAGER ABUACCT #:[id number] LOC: [facility] [place] U#:[id number] AGE/SX: 48/F ROOM: RE01/22/[address]: Dr. Yamileth Palencia, : 1970 BED: DIS: 01/22/2019 SPEC #: [id number] RECD: 01/22/19 16:49 STATUS: NILE VLADISLAV #: [id number] KENZIE: 01/22/19 09:[address]: Yamileth Palencia DEPT: SURGICAL PATHOLOGY RECD BY: Bryant Stockton ENTERED: 01/23/19 07:43 SP TYPE: GANGLION OTHR DR: Dr. Debo Bowers MD Tissues: GANGLION CYST Procedures: Surgery Specimen Level III HEADER OPERATION: Carpal tunnel release, ganglion cyst volar excision PRE-OP DIAGNOSIS: Left carpal tunnel syndrome, ganglion cyst TISSUE SUBMITTED: Ganglion cyst MICROSCOPIC DIAGNOSIS Ganglion cyst: Consistent with ganglion cyst. SJ:edgar 01/24/19 MICROSCOPIC DESCRIPTION Slides are reviewed. GROSS DESCRIPTION Received in fixative is one container labeled with the patient's name and designated ganglion cyst. The specimen consists of a piece of jones soft tissue measuring 1 x 0.5 x 0.3 cm. The specimen is bisected and submitted entirely in one cassette. / JUDITH:edgar 01/23/19 TC:5 CPT: 61436
[2019-01-22 09:35] LABS: Bedside Glucose 197 mg/dL (70-110)
--- NOTE | 2019-01-22 09:38 | DCINST_ITS ---
Discharge Diet: No Restrictions - leave dressing on until seen in postop clinic, call with concerns, keep dressing clean and dry Discharge Activity: May Not Drive May shower in (days): 1 Ice area for (Minutes): 20 - Every hour while awake. Weight Bearing Status: Weight bearing as tolerated Keep extremity elevated above heart level: Operative Extremity Call your doctor if your incision/area has: Continuous Slow Oozing, Sudden Increased Bleeding, Increased Pain/ Swelling, Increased Redness, Foul Smelling Discharge Call your doctor if you observe: Fever of 101 or Higher, Coldness, Increased Pain, Numbness or Tingling, Change in Color, Calf discomfort Allergies/Adverse Reactions: Allergies codeine Allergy (Verified 01/20/19 13:40) Nausea hydrocodone bitartrate [From Vicodin] Adverse Reaction (Verified 01/20/19 13:40) Nausea latex Adverse Reaction (Verified 01/20/19 13:40) Rash nabumetone [From Relafen] Adverse Reaction (Verified 01/20/19 13:40) Upset Stomach SEASONAL Allergy (Mild, Uncoded 01/20/19 13:40) Other Medications to take at Discharge Atenolol [Tenormin (beta erick)] 12.5 mg PO QHS 07/05/13 Duloxetine Hcl [Cymbalta] 30 mg PO DAILY 07/05/13 Novolog Flexpen 30 units SUBCUT TID 07/05/13 Fluticasone 220 Mcg [Flovent 220 Mcg] 2 puff INHALATION BID 02/03/15 Omeprazole [Prilosec] 20 mg PO QHS 02/03/15 Oxycodone CR [Oxycontin] 10 mg PO DAILY 02/03/15 Insulin Glargine,Hum.rec.anlog [Basaglar Kwikpen U-100] 110 unit SQ QHS 08/01/18 Montelukast [Singulair] 10 mg PO DAILY 08/01/18 Cholecalciferol (Vitamin D3) [Vitamin D3] 2,000 unit PO DAILY 01/10/19 Primary Care Physician: Debo Bowers MD [Primary Care Provider] - Test Results: Test results from this visit will be discussed in further detail at your follow- up appointment, if applicable. Please Follow Up With: Yamileth Palencia, - [phone]
--- NOTE | 2019-01-22 09:38 | PCM.HP.BLA ---
History and Physical I have re-examined the patient. There are no clinical changes since date of exam. Intake Vital Signs 01/14/19 Body Mass Index (BMI) 50.6 Intake Visit Reasons: Left Wrist Allergies codeine Allergy (Verified 01/14/19 10:11) Nausea hydrocodone bitartrate [From Vicodin] Adverse Reaction (Verified 01/14/19 10:11) Nausea latex Adverse Reaction (Verified 01/14/19 10:11) Rash nabumetone [From Relafen] Adverse Reaction (Verified 01/14/19 10:11) Upset Stomach SEASONAL Allergy (Mild, Uncoded 01/14/19 10:11) Other Medications Atenolol [Tenormin (beta erick)] 12.5 mg PO QHS 07/05/13 [History Confirmed 01/14/19] Duloxetine Hcl [Cymbalta] 30 mg PO DAILY 07/05/13 [History Confirmed 01/14/19] Novolog Flexpen 30 units SUBCUT TID 07/05/13 [History Confirmed 01/14/19] Fluticasone 220 Mcg [Flovent 220 Mcg] 2 puff INHALATION BID 02/03/15 [History Confirmed 01/14/19] Omeprazole [Prilosec] 20 mg PO QHS 02/03/15 [History Confirmed 01/14/19] Oxycodone CR [Oxycontin] 10 mg PO DAILY 02/03/15 [History Confirmed 01/14/19] Insulin Glargine,Hum.rec.anlog [Basaglar Kwikpen U-100] 110 unit SQ QHS 08/01/18 [History Confirmed 01/14/19] Montelukast [Singulair] 10 mg PO DAILY 08/01/18 [History Confirmed 01/14/19] Cholecalciferol (Vitamin D3) [Vitamin D3] 2,000 unit PO DAILY 01/10/19 [History Confirmed 01/14/19] [facility] Social History (Updated 01/14/19 @ 13:17 by Yamileth Palencia DO) Smoking Status: Never smoker HPI Left Wrist: Details: Parts of this documentation were recorded by a scribe, this documentation accurately reflects the service provided and the decisions made by , Yamileth Palencia DO 01/14/19 1011. MYLES ALVARADO is a 48 year old F here today for f/u following L wrist ultrasound. No changes since that time. Rates pain 3/10 today. No new concerns today. Her US is here for review. pain and weakness of left hand when holding/opening jars. states pain is worse when using her hand/wrist. numbness in 1-3 fingers. Ortho Exam Left Wrist/Hand WRIST: palpable ganglion cyst Assessment & Plan Problems 1. Ganglion cyst M67.40 2. Left carpal tunnel syndrome G56.02 Plan Her treatment options are aspiration in the office or removal in the operating room. Reviewed the risk of the cyst returning with both options. Patient elects to proceed with removal and ctr. Reviewed the pre-operative plans with the patient. Risks and benefits of the procedure were fully explained, including but not limited to infection, neurovascular injury, continued pain, arthritis, stiffness, need for further surgery, re-injury, DVT, PE, general risks of anesthesia, and loss of limb or life. The patient understands all the risks and does wish to proceed with written consent. Follow up 2wks post op or sooner if pain, swelling, numbness or associated symptoms, or concerns develop. All questions answered. Patient in agreement of plan. Coding Level of Care Code Off vis,est,level 4 Diagnoses Ganglion cyst M67.40 Left carpal tunnel syndrome G56.02
[2019-01-22] MEDS: Cefazolin 2 GM in 0.9% Normal Saline 100 ML IV (09:39)
--- NOTE | 2019-01-22 09:39 | OP.PCM_ITS ---
Report of Operation Date of Procedure: 01/22/19 Pre-Operative Diagnosis: left carpal tunnel syndrome and symptomatic volar ganglion cyst Post-Operative Diagnosis: same Surgery/Procedure Performed:: left carpal tunnel release, left volar wrist ganglion excision Type of Anesthesia:: Jorge Alberto Cervantes Anesthesiologist: Michael Iyer Estimated Blood Loss (mL): min Fluids Replaced: 700cc lr Description of Procedure: Preoperative note Patient is a { 48 } patient with nerve conduction study confirming carpal tunnel syndrome and painful left volar wrist ganglion. Please note we did an ultrasound preoperatively and it was confirmed to be a ganglion cyst.. Patient failed conservative treatment for her carpal tunnel elected proceed with left carpal tunnel release. Risks benefits and alternatives surgery discussed with patient. Risks including but not limited to blood loss, blood clot, infection, neurovascular injury, failure procedure, loss of life and loss of limb. Patient is aware like proceed with left carpal tunnel release. Left volar ganglion cyst excision Operative note Patient seen and examined preoperative holding area. Left hand was marked. History and physical and consent reviewed. Patient was brought to the operating room placed supine on the operating table. Sign in, anesthesia, antibiotics were administered. Left upper extremity was prepped and draped after [place] block was initiated. All bony prominences well-padded SCDs placed on bilateral lower extremities. We marked out our incisions for our carpal tunnel release at the intersection of Tacho's line in the fourth ray flexed as well as are volar radial ganglion cyst.. We extended about a centimeter and a half. Timeout was performed. We then checked ensure that the [place] block was working with pickups which it was. We then used a 15 blade to make a skin incision in a [place] fashion over top of the ganglion cyst. We then used a 15 blade then tenolysis dissect down the level of the ganglion cyst we then used an ablator Bovie to bipolar to carefully excise the galea cyst in its entirety and then coagulated the stalk. There was a small peripheral radial artery bleeder which we did coagulate and we did release the tourniquet at the end of the case and there were no active bleeding at that time. Please note the end of the case patient had good perfusion of her hand with a tourniquet was released. we then moved our carpal tunnel release.. We then dissected down tenotomy syllable of the transverse carpal ligament. We then used a new 15 blade cut through the transverse carpal ligament down to the level of the median nerve. We then further released the median nerve the combination of the 15 blade and tenotomies. The nerve was grayish in color and adherent to the transverse carpal ligament volarly. We released the transverse carpal ligament distally to the fat pad and then proximally under standard technique. We then palpated to ensure that we released all of the transverse carpal ligament which we did. We irrigated the incision with copious amounts of sterile saline. All bleeders were coagulated. The incision was closed with interrupted 4-0 nylon stitches. Tourniquet was deflated for total working time of 34 minutes. Patient tolerated procedure well there were no complications. Patient transferred to recovery room in stable condition. Postoperative note Hospital pharmacy has prescription Leave dressing clean dry and intact Follow-up in 2 weeks Call with concerns This note was generated with Neiron dictation software. It may contain incorrect words, spelling, and punctuation that were not noted in checking the note before signing.
== END 2019-01-22 12:20 | disposition home or self-care (01) ==
LOC: SDC 07:57 → AC 07:58
PROVIDERS: Anesthesiology; Family Provider Internal Medicine; PCP Internal Medicine; Referring Provider Orthopaedic Surgery; Visit Provider Orthopaedic Surgery
PROC: (CPT 64721; principal; 2019-01-22 09:15)
DX: G56.02 Carpal tunnel syndrome, left upper limb (principal); M67.432 Ganglion, left wrist; G89.18 Other acute postprocedural pain; J44.9 Chronic obstructive pulmonary disease, unspecified; G47.30 Sleep apnea, unspecified; K21.9 Gastro-esophageal reflux disease without esophagitis; E11.9 Type 2 diabetes mellitus without complications; F41.9 Anxiety disorder, unspecified; F32.9 Major depressive disorder, single episode, unspecified; Z79.4 Long term (current) use of insulin; Z79.51 Long term (current) use of inhaled steroids; Z79.899 Other long term (current) drug therapy
CPT/HCPCS: 01810; 25111; 64721; 81025; 82962; 88304; 96372; 99282; J7120

== ENCOUNTER 2019-01-22 17:09 | Emergency (ER) | payer MEDICAID, SELFPAY ==
[2019-01-22 08:18] VITALS: BMI 50.6
[2019-01-22 17:10] VITALS: BP 154/82; PULSE 85; RESP 18; TEMP 36.3; O2SAT 95; BMI 51.1
--- NOTE | 2019-01-22 17:49 | ED.VISSUMM ---
- ER Visit Summary Date of Service: 01/22/19 Chief Complaint: Postop pain History of Present Illness: The patient is a 44 F who had a carpal tunnel release and cyst removed by Dr. Palencia earlier today. She was instructed to come to the emergency department as a private outpatient. Physical Examination: Patient seen by orthopedist directly Test Results: Applicable Emergency Department Course and Treatment: Outpatient of orthopedist, Dr. elijah Richardson Treatment Plan: Per surgeon Disposition: Discharge to home Impression: Postop pain This note was generated with Advebs dictation software. It may contain incorrect words, spelling, and punctuation that were not noted in review of the chart prior to signing Impression: [] This note was generated with Advebs dictation software. It may contain incorrect words, spelling, and punctuation that were not noted in review of the chart prior to signing ED Disposition - Plan for ED Patient: Disposition: Home or Assisted Living Diagnosis: Acute postoperative pain of extremity Instructions: POST OP WOUND CHECK, Pain Referrals: Debo Bowers MD [Primary Care Provider] - Yamileth Palencia DO [STAFF PHYSICIAN] - Keep Tamanna appointment
[2019-01-22] MEDS: Morphine 4 MG/ML Syringe IM (17:58)
== END 2019-01-22 18:28 | disposition home or self-care (01) ==
LOC: ED 17:26 → SDC 17:36 → ED 17:40
PROVIDERS: Emergency Provider Emergency Medicine; Family Provider Internal Medicine; PCP Internal Medicine; Referring Provider Orthopaedic Surgery
DX: G89.18 Other acute postprocedural pain (principal)
CPT/HCPCS: 96372

== ENCOUNTER 2019-01-31 21:32 | Emergency (ER) | payer MEDICAID, SELFPAY ==
[2019-01-31 21:33] VITALS: BP 155/79; PULSE 70; RESP 16; TEMP 36.4; O2SAT 98; BMI 52.0
--- NOTE | 2019-01-31 22:25 | CT_ITS ---
STUDY: CT BRAIN WITHOUT CONTRAST REASON FOR EXAM: Female, 48 years old. Hypertension RADIATION DOSAGE (If Supplied By Facility): CTDIvol = ( 44.99 ) mGy, DLP = ( 796.11 ) mGycm TECHNIQUE: Transaxial CT imaging of the brain was performed without administration of intravenous contrast material. Individualized dose optimization techniques were used for this CT. COMPARISON: MR brain September 11, [address] brain September 10, 2012 reports FINDINGS: Normal soft tissue structures. Normal calvarium. Normal size ventricles and extra-axial spaces for the patient's age. Normal white matter tracts of the cerebral hemispheres. Normal basal ganglia and thalami. Normal brainstem. Normal cerebellum. There is no intracranial hemorrhage. There are no findings of an acute ischemic infarction. Normal visualized paranasal sinuses. CT/Brain/Head without Contrast IMPRESSION: Normal unenhanced CT scan of the brain. Electronically Signed: Jonathan Mcmahon MD at 23:25 EDT , Service support ,
--- NOTE | 2019-01-31 22:25 | EKG12_ITS ---
Test Reason : DYSRHYTHMIA Blood Pressure : / mmHG Vent. Rate : 091 BPM Atrial Rate : 091 BPM P-R Int : 148 ms QRS Dur : 086 ms QT Int : 362 ms P-R-T Axes : 066 037 040 degrees QTc Int : 445 ms Normal sinus rhythm with sinus arrhythmia Normal ECG Confirmed by SELVIN AGUILAR, BOBO ([id number]), online content editor MANPREET HIGUERA ([id number]) on 02/04/2019 11:17:29 AM Referred By: PAUL Confirmed By:BOBO MONTALVO MD
--- NOTE | 2019-01-31 22:29 | ED.VIS.GEN ---
History of Present Illness Chief Complaint: Dizziness Informant: Patient Onset: Today Context: Sudden Onset - while at rest Timing: Waxes and wanes Quality: dizzy Location: head Current Severity: Mild Maximum Severity: Moderate Worsened by: turning head, now Relieved by: remaining still Associated Symptoms: nausea Narrative: Patient states she was sitting, talking on the phone and suddenly started feeling dizzy. At first she started describing it as a sensation of movement, but then she states that it felt lightheaded like she was going to pass out. She is very vague in her description. She states as she walked toward the door to open it when her ex- arrived, she states that she felt the room turn half turn but that is all. She denies feeling of spinning, only saying that it turned to penitent[facility]. Now, she states she is having a sensation of spinning, nausea, that gets worse when she turns her head. She is a history of vertigo, and does not think this was nearly as bad as prior history/experience. She had a cyst removed from her wrist along with a carpal tunnel release more than a week ago and states that recovery is going uneventfully except for occasional paresthesias in her fingers. She does not have that right now. She does feel dizzy right now, it is worse when she changes position. No history of stroke. No history of vascular disease that she knows of. She is a type 2 insulin-dependent diabetic; her blood sugar was around 160 at home at the time of symptom onset. - Past Medical History (1) Benign hypertension Status: Chronic (2) Obstructive sleep apnea syndrome Status: Chronic (3) Type 2 diabetes mellitus Status: Chronic (4) chronic dizziness Status: Chronic Past Medical History - Allergies and Home Meds Allergies/Adverse Reactions: Allergies codeine Allergy (Verified 01/31/19 21:38) Nausea hydrocodone bitartrate [From Vicodin] Adverse Reaction (Verified 01/31/19 21:38) Nausea latex Adverse Reaction (Verified 01/31/19 21:38) Rash nabumetone [From Relafen] Adverse Reaction (Verified 01/31/19 21:38) Upset Stomach SEASONAL Allergy (Mild, Uncoded 01/22/19 17:13) Other Primary Care Physician: Debo Bowers MD [Primary Care Provider] - Surgical History: no surgical history Smoking Status: Never smoker Review of Systems General: Reports: Malaise. Denies: Chills, Fever, Sweats Eyes: Denies: Visual changes - bilaterally, Diplopia ENT: Denies: Rhinorrhea, Sore throat Cardiovascular: Denies: Chest pain, Palpitations Respiratory: Denies: Dyspnea, Cough, Dyspnea on exertion Gastrointestinal: Reports: Nausea. Denies: Abdominal pain, Vomiting, Diarrhea, Melena, Hematochezia Genitourinary: Denies: Dysuria, Hematuria, Frequency Musculoskeletal: Reports: Swelling - chronic BLE, unchanged, Extremity Pain - postsurgical left wrist, improving. Denies: Neck pain, Back pain Skin: Denies: Rash, Wounds Neurological: Reports: Parasthesia - left fingers off and on since wrist surgery. Denies: Headache, Weakness Physical Exam Vital Signs/Narrative: Vital Signs Temp Pulse Resp BP Pulse Ox 01/31/19 21:33 97.5 F L 70 16 155/79 H 98 Inital Vital Signs reviewed: Yes General: Well nourished, Well developed, Obese, No Acute Distress - conversive in full sentences Head: Normocephalic, Atraumatic Eyes: Perrl, EOMI - no horiz, vertical, or rotatory nystagmus. ENT: Moist mucous membranes, No rhinorrhea Neck: Supple, Nontender Cardiovascular: Regular rate, Regular rhythm, No murmurs Respiratory: No distress, CTA bilaterally, Chest nontender Abdomen: Soft, Nontender, Nondistended, Normal bowel sounds Back: Nontender, Normal Inspection Extremities: Nontender, No edema. Negative for: Calf Tenderness Skin: Normal color, No rash, No Trauma Neurological: Alert, Oriented x3, Cranial nerves II-XII grossly intact, Normal Strength, Normal Sensation, - - nml FTN and HTS. NIHSS 0. w/ Chetna-Hallpike, pt has sx to the left but no nystagmus; no sx to the right. Psychological: Normal affect, Normal Mood Diagnostic/Tx/Re-eval Impressions Brain CT 01/31/19 22:25 IMPRESSION: Normal unenhanced CT scan of the brain. Electronically Signed: Jonathan Mcmahon MD at 23:25 EDT , Service support , 01/31/19 22:25 Brain/Head without Contrast [CT] Stat Laboratory Results 01/31/19 01/31/19 22:48 22:48 WBC 9.1 RBC 4.45 Hgb 13.2 Hct 40.7 MCV 91.5 MCH 29.7 MCHC 32.4 RDW Std Deviation 43.4 RDW Coeff of Ruslan 13.1 Plt Count 216 MPV 9.0 Immature Gran % (Auto) 0.600 Neut % (Auto) 72.4 H Lymph % (Auto) 18.6 L Hayes % (Auto) 6.3 Eos % (Auto) 1.9 Baso % (Auto) 0.2 Absolute Neuts (auto) 6.6 Absolute Lymphs (auto) 1.69 Nucleated RBC % 0 Sodium 143 Potassium 3.6 Chloride 110 H Carbon Dioxide 29.0 Anion Gap 4 L BUN 15 Creatinine 0.80 Estim Creat Clear Calc 70.37 Est GFR (MDRD) Af Amer 98 Est GFR (MDRD) Non-Af 81 BUN/Creatinine Ratio 18.8 Glucose 140 H Calcium 8.7 - Rhythm Strip Rhythm Strip: Sinus Rhythm Rate: 91 Ectopy: None - EKG Initial EKG Interpretation: Sinus Rhythm, No Acute Injury Pattern - nml axis, nml EKG - Medical Decision Making Given that with all of her dizziness she is feeling nauseated, I suspect this is a vertiginous process. She does not recall if she triggered the symptoms with motion or not, but it continues to worsen with motion. With meclizine and Phenergan, she is feeling much better with regards to all of her symptoms. Work-up was unremarkable, her blood pressure was in the 150s in triage, I do not think she is having an acute stroke since her cerebellar signs are all within normal limits and her NIH is 0. For that reason I do not think she needs to be admitted for MRI or obtain emergency CT angiography. If she has worsening symptoms she is encouraged to return to the ER otherwise can follow-up with her doctor after the weekend. She is comfortable with this plan and with prescriptions for meclizine and Phenergan. ED Disposition - Plan for ED Patient: Disposition: Home or Assisted Living Diagnosis: Peripheral vertigo Instructions: VERTIGO, Unspecified Prescriptions: Meclizine HCl [Antivert] 25 mg PO Q6H PRN #16 tab PRN Reason: Dizziness Transmission Status: Pending to [facility] proMETHazine tablet [Phenergan] 25 mg PO Q6H PRN PRN #10 tab PRN Reason: Nausea Transmission Status: Pending to [facility] Referrals: Debo Bowers MD [Primary Care Provider] - 3-5 Days if not improving
[2019-01-31] MEDS: 0.9% Normal Saline 1,000 ML 999 ML IV (22:49)
[2019-01-31] MEDS: Meclizine 12.5 MG Tablet PO (22:49)
[2019-01-31] MEDS: proMETHazine 25 MG/ML Syringe 6.25 MG IV (22:49)
[2019-01-31 22:57] LABS: Absolute Lymphocyte Count 1.69 X10^3/uL (0.83-4.51); Absolute Neutrophil Count 6.6 X10^3/uL (2.0-7.7); Basophil# 0.02 X10^3/uL; Basophil% 0.2 % (0-1); Eosinophil# 0.17 X10^3/uL; Eosinophils% 1.9 % (0-5); Hematocrit 40.7 % (37-47); Hemoglobin 13.2 g/dL (12.0-15.0); Lymphocyte # 1.69 X10^3/ul (4.0); Lymphocyte % 18.6 % (19-41); Mean Corp Hgb Conc 32.4 g/dL (32-36); Mean Corpuscular Hgb 29.7 pg (27.0-32.0); Mean Corpuscular Volume 91.5 fL (81-99); Monocyte# 0.57 X10^3/uL; Monocyte% 6.3 % (0-10); NRBC Flagged by Analyzer 0 % (0-5); Neutrophil # 6.59 X10^3/uL (2.7-7.7); Neutrophil % 72.4 % (47-70); Platelet Count 216 K/mm3 (150-450); RBC Distribution Width CV 13.1 % (11.6-14.6); RBC Distribution Width SD 43.4 fl (35.1-43.9); Red Blood Count 4.45 M/mm3 (4.2-5.4); White Blood Count 9.1 K/mm3 (4.4-11.0)
[2019-01-31 23:10] LABS: Anion Gap 4 (5-15); BUN 15 mg/dL (7-18); BUN/Creat Ratio 18.8 RATIO (10-20); Calcium,Total 8.7 mg/dL (8.5-10.1); Chloride 110 mmol/L (98-107); EST Glomerular Filtration Rate 81 mL/min (>60); Est Glom Filt Rate - Afr Amer 98 mL/min (>60); Estimated Creatinine Clearance 70.37 ml/min; Glucose 140 mg/dL (74-106); Potassium 3.6 mmol/L (3.5-5.1); Sodium Level 143 mmol/L (136-145)
[2019-02-01 00:20] VITALS: BP 126/67; PULSE 95; RESP 15; O2SAT 98
== END 2019-02-01 00:21 | disposition home or self-care (01) ==
PROVIDERS: Emergency Provider Emergency Medicine; Family Provider Internal Medicine; PCP Internal Medicine
DX: H81.399 Other peripheral vertigo, unspecified ear (principal); E11.9 Type 2 diabetes mellitus without complications; I10 Essential (primary) hypertension; G47.33 Obstructive sleep apnea (adult) (pediatric); Z79.4 Long term (current) use of insulin; Z79.899 Other long term (current) drug therapy; E66.9 Obesity, unspecified
CPT/HCPCS: 70450; 80048; 85025; 93005; 96361; 96374; 99285; J7030

== ENCOUNTER 2019-03-18 14:00 | Outpatient (RCR) | payer MEDICAID, SELFPAY ==
[2019-02-04 09:37] VITALS: BMI 52.0
--- NOTE | 2019-02-18 16:19 | HP.OTEVAL_ITS ---
Patient's Visit Information MYLES ALVARADO is a 48 year old F, referred to Occupational Therapy by Yamileth Palencia DO, with a diagnosis of left CTS and ganglion cyst removal. Date of Evaluation: 02/17/19 Occupational Therapist: SARITA Rodriguez/Hailey, CHT - Subjective Subjective: This 48 year old female was seen for OT eval with dx of left CTS and ganglion- pt underwent sx on 2018. 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 Pt states she has numbness sesation/and sharp shooting pain. pt reports hardness at incison and wrist that makes her wrist feel thick. pt would like to know what she can do to improve her sensation and decrease her pain. 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 Pt will demo an increase in lateral and tripod pinch by 2# to increase pts independent with opening baggies, containers at PLOF by D/C. Goal:: Pt will demo an increase in wrist ROM equal to unaffected wrist to return pt to PLOF with grooming, dressing and home mtg tasks by D/C. Goal:: Pt will report pain no greater than 1/10 with use of affected hand with BADLs and IADLs by d/c. Goal:: Pt will demo the ability to form a composite fist to hold and receive 10 coins without dropping coins/ and coin manipulation/money mtg and fasteners by D/C. Goal:: Pt will demo a increase in sensation demo by testing with a decrease in semi-Brook monofilaments equal to unaffected sensory nerve by d/c Goal:: Pt will demo understanding of scar mtg. by end of 2nd session to increase tissue extensibility to limit scar adhesions and allow full tendons function by d/c. - Rehabilitation General Assessment: Pt is currently s/p 4 weeks CTR and ganglion cyst removal. pt demo scar sensitivity and scar hytrophy. Pt limited with wrist ROM and stength to perform ADLs and IADLS. Pt would benefit from skilled OT services 1- 2x week for 6 weeeks to return pt to [facility] with ADLs and IADLS. Today therapist ed. pt on desensitization, scar mtg, tendon glide ex and wrist ext ex. pt demo understanding of ex and was given handout and agree to POC. Rehabilitation Potential: Good - Anticipated Interventions Anticipated Interventions: A/AAROM/PROM, Strengthening, Scar Care, Triggerpoint Release, Desensitization, Sensory Retraining, Modalities, Orthoses, Joint Protection/Energy Conservation, Ergonomic Education, Fine Motor Coord/Adam - Visit Plan Frequency: 1-2x /Week Duration: 6 Weeks General Plan: use of fluido as modalitiy as to desensitize scar- with ROM ex. TEXT: Thank you for the opportunity to evaluate your patient. For Medicare and Medicare HMO plans, please review the plan of care and approve it. It will need to be FAXED BACK to us at [phone] for Medicare purposes. Please let me know if there are questions or concerns regarding this plan of care. Physician Signature: Date:
--- NOTE | 2019-03-20 07:40 | HP.OTREVAL ---
Yamileth Palencia, DO, It has been [facility] visits for left CTS and ganglion cyst removal. Please see the progress note below for an update on the occupational therapy plan of care! Subjective: pt arrives still has concerns with burning /tingling sensation- states when she showers her hand does turn blue- pt states Eric BAY has requested an order for MRI to see what is going on- question scar tissue or doesnt know what thick band is around wrist. pt states she just wants to feel better- Therapist has spoke with pt on scar mtg and ed.pt on dialation of vessels when taking a shower may increase her discoloration of her hand. Scar tissue does appear to be a factor with hyper-sensitivity and a hypertrophic scar. Objective/Function: left wrist 25/35. 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 left lateral pinch 2#. left tripod pinch 4#. pt anna touch to CTR and galglion scar- pt was unable to anna. touch to incision area before this visit- therapist ed. pt that she is getting better but pt still concerned with her pain and hand discoloration. Therapist advised pt to cont with scar mtg, edema control. Therapist also ed. pt to use hand with daily tasks as much as she can. Plan Frequency: 1-2x /Week Duration: 6 Weeks Plan: cont to increase ROM and desensitization Goals - Goals Goal:: PT will demo an increase in hazardous materials tanker driver strength by 20# to increase independent with basic occupations of daily living to return pt to PLOF by D/C. Pt will demo an increase in lateral and tripod pinch by 2# to increase pts independent with opening baggies, containers at PLOF by D/C. Goal:: Pt will demo an increase in wrist ROM equal to unaffected wrist to return pt to PLOF with grooming, dressing and home mtg tasks by D/C. Goal:: Pt will report pain no greater than 1/10 with use of affected hand with BADLs and IADLs by d/c. Goal:: Pt will demo the ability to form a composite fist to hold and receive 10 coins without dropping coins/ and coin manipulation/money mtg and fasteners by D/C. Goal:: Pt will demo a increase in sensation demo by testing with a decrease in semi-Brook monofilaments equal to unaffected sensory nerve by d/c Goal:: Pt will demo understanding of scar mtg. by end of 2nd session to increase tissue extensibility to limit scar adhesions and allow full tendons function by d/c. Anticipated Interventions Anticipated Interventions: A/AAROM/PROM, Strengthening, Scar Care, Triggerpoint Release, Desensitization, Sensory Retraining, Modalities, Orthoses, Joint Protection/Energy Conservation, Ergonomic Education, Fine Motor Coord/Adam Please do not hesitate to contact me at [phone] by phone or if you have questions or concerns regarding this new plan of care! Sincerely, Juanita Trevino, OTR/L, CHT
--- NOTE | 2019-06-06 08:53 | HP.OT.NRP ---
HP - Discharge Summary - Patient Information MYLES NUNEZ was seen in my office for initial evaluation on 02/17/19. The following Plan of Care was established for this patient: Plan: cont to increase ROM and desensitization - Anticipated Interventions Anticipated Interventions: A/AAROM/PROM, Strengthening, Scar Care, Triggerpoint Release, Desensitization, Sensory Retraining, Modalities, Orthoses, Joint Protection/Energy Conservation, Ergonomic Education, Fine Motor Coord/Adam This patient was last seen in our office 03/18/19. Pertinent comments regarding their Occupational therapy will appear below: Pt was seen for 5 OT visits. pt was struggling with scar sensitivity and limited ROM- Pt reported she was using desensitization prosper. but continued to have sensitivity. she no showed her last scheduled apt. and has not scheduled any further apts at this time and is D/C at this time due to time lapse in care. At this point I will be discontinuing this patient from occupational therapy. I would be happy to see this patient again in the future if found appropriate by the physician. Thank you! Juanita Trevino, OTR/L, CHT
== END 2019-03-18 19:00 | disposition home or self-care (01) ==
LOC: OT 14:00
PROVIDERS: Family Provider Internal Medicine; PCP Internal Medicine; Visit Provider Orthopaedic Surgery
DX: Z98.890 Other specified postprocedural states (principal)
CPT/HCPCS: 97035; 97110; 97140; 97166; 97530

== ENCOUNTER → 2019-04-08 10:13 | Outpatient (CLI) | payer MEDICAID, SELFPAY ==
[2019-03-06 09:43] VITALS: BMI 52.0
--- NOTE | 2019-04-08 10:15 | MRI_ITS ---
STUDY: MRI LEFT WRIST WITHOUT CONTRAST REASON FOR EXAM: Female, 48 years old. History of ganglion cyst removal. Pain. TECHNIQUE: Standardized fat and water weighted pulse sequences were obtained in all 3 orthogonal planes. COMPARISON: Wrist images dated January 07, 2019. FINDINGS: Normal visualized distal radius and ulna. Normal distal radioulnar Articulation (DRUJ). Normal triangular fibrocartilaginous complex (TFCC). Normal carpal bones. Normal radiocarpal, intercarpal and midcarpal articulations. Normal pisotriquetral articulation. Normal visualized interosseous scapholunate ligament. Normal visualized dorsal (extrinsic) ligaments. Normal visualized volar (extrinsic) ligaments. Tenosynovitis of the fourth dorsal compartment (axial series 7 images 8-13). Normal flexor tendons. Postsurgical changes in the carpal tunnel (axial series 6 images 9-16). Normal carpometacarpal articulation of the thumb. Normal second through fifth carpometacarpal articulations. Normal visualized metacarpal bones. Fibrosis of the superficial soft tissues adjacent to the carpal tunnel (axial series 6 images 9-17). MRI/Upper Ext Joint Only(Routine) IMPRESSION: Postsurgical changes in the carpal tunnel. Fourth dorsal compartment tenosynovitis. No other significant abnormality. Electronically Signed: Mino Stanton MD at 14:39 EST , Service support ,
== END ==
PROVIDERS: Family Provider Internal Medicine; PCP Internal Medicine; Referring Provider Physician Assistant; Visit Provider Physician Assistant
DX: Z98.890 Other specified postprocedural states (principal)
CPT/HCPCS: 73221

== ENCOUNTER 2019-04-14 11:30 | Outpatient (RCR) | payer MEDICAID, SELFPAY ==
[2019-03-06 09:43] VITALS: BMI 52.0
== END 2019-04-14 23:59 | disposition home or self-care (01) ==
LOC: NS 11:30
PROVIDERS: Family Provider Internal Medicine; PCP Internal Medicine; Visit Provider Internal Medicine
DX: Z71.3 Dietary counseling and surveillance (principal); E66.01 Morbid (severe) obesity due to excess calories; Z68.43 Body mass index [BMI] 50.0-59.9, adult; M43.07 Spondylolysis, lumbosacral region; E11.65 Type 2 diabetes mellitus with hyperglycemia; G47.33 Obstructive sleep apnea (adult) (pediatric); I10 Essential (primary) hypertension; Z79.4 Long term (current) use of insulin
CPT/HCPCS: 97802

== ENCOUNTER 2019-10-26 22:54 | Emergency (ER) | payer MEDICAID, SELFPAY ==
[2019-03-06 09:43] VITALS: BMI 52.0
[2019-10-26 22:55] VITALS: BP 195/110; PULSE 101; RESP 24; TEMP 36.3; O2SAT 96; BMI 50.8
--- NOTE | 2019-10-26 23:13 | EKG12_ITS ---
Test Reason : PALPS Blood Pressure : / mmHG Vent. Rate : 089 BPM Atrial Rate : 089 BPM P-R Int : 146 ms QRS Dur : 082 ms QT Int : 362 ms P-R-T Axes : 072 037 032 degrees QTc Int : 440 ms Normal sinus rhythm Normal ECG Confirmed by SONJA MOLINA MD ([id number]), video effects editor ANTHONY RODAS ([id number] on 10/28/2019 3:23:15 PM Referred By: SHARON Confirmed By:SONJA MOLINA MD
--- NOTE | 2019-10-26 23:13 | RAD_ITS ---
STUDY: X-RAY CHEST REASON FOR EXAM: Female, 49 years old. PALPITATIONS, ACUTE ON-SET. ASO H/O TECHNIQUE: Frontal view COMPARISON: 08/24/2016 FINDINGS: The lungs are clear and expanded. There is no demonstrated pleural abnormality. Normal size heart. Normal mediastinum and ruiz. Normal visualized pulmonary arteries. Normal visualized aortic arch and descending thoracic aorta. Normal visualized thoracic spine. Normal visualized ribs, clavicles, and shoulders. There is no demonstrated abnormality of the visualized soft tissue structures of the upper abdomen. RAD/Chest 1 View (Portable) IMPRESSION: Normal x-ray examination of the chest. Electronically Signed: Manny Bundy MD at 0:24 EDT , Service support ,
[2019-10-26 23:28] VITALS: O2SAT 97
--- NOTE | 2019-10-26 23:29 | ED.DCSUM_ITS ---
- ER Visit Summary Date of Service: 10/26/19 Chief Complaint: Palpitations History of Present Illness: The patient is a 49 F history of insulin-dependent diabetes. No cardiac history. Prior negative nuclear stress test. Patient states for at least 2 months if not longer she has intermittent palpitations. Denies any chest pain. No specific shortness of breath. No history of cardiac disease. No prior DVT or PE. No recent travel, surgery or immobilization. No calf pain or swelling. No hemoptysis. States that she does intermittently over the last 2 to 3 months has had accelerated heart rates and at other times is not there at all. Not specifically associated with exertion. Has a an upcoming appointment with her primary care provider and a schedule Holter monitor. States she has been worked up for thyroid disease before and it always been negative. Physical Examination: Well-appearing middle-aged female no acute distress vital signs stable afebrile. In the room her heart rates in the 90s. Her initial blood pressure was 195/110. However on my exam she is 156/70. HEENT exam unremarkable. Neck nontender no thyromegaly. No lymph adenopathy. Lungs clear to auscultation bilaterally. Heart regular rhythm rate about 91 no murmurs. Abdomen soft nontender normal bowel sounds no peritoneal signs. Obese. Patient is moving all 4 extremities. Calves are nontender without edema or cords. Equal symmetrical lap cutter strength. Dorsi plantarflexion intact. Neurologically she is awake and alert with no focal motor deficits. Test Results: Chest x-ray portable 1 view read by myself shows no acute abnormality. Normal cardiac silhouette. No infiltrate. EKG normal sinus rhythm rate of 89 no acute signs of OK or ischemia. Unchanged from prior EKG from 2019. CBC normal white count of 10. Hemoglobin 13. Chemistries unremarkable normal creatinine and gap. Glucose of 259 with a history of diabetes. Troponin normal. Emergency Department Course and Treatment: Middle-aged female with palpitations. Exam unremarkable. Treatment Plan: Repeat exam patient doing well at 00 15 a.m. She will be discharged home with outpatient follow-up. Disposition: Discharge Impression: Acute palpitations of uncertain etiology History of diabetes Acute hyperglycemia This note was generated with AGRIMAPSation software. It may contain incorrect words, spelling, and punctuation that were not noted in review of the chart prior to signing ED Disposition - Plan for ED Patient: Referrals: Debo Bowers MD [Primary Care Provider] -
[2019-10-26 23:37] LABS: Absolute Lymphocyte Count 1.37 X10^3/uL (0.83-4.51); Absolute Neutrophil Count 8.1 X10^3/uL (2.0-7.7); Basophil# 0.03 X10^3/uL; Basophil% 0.3 % (0-1); Eosinophil# 0.12 X10^3/uL; Eosinophils% 1.1 % (0-5); Hematocrit 41.5 % (37-47); Hemoglobin 13.5 g/dL (12.0-15.0); Lymphocyte # 1.37 X10^3/ul (4.0); Lymphocyte % 13.1 % (19-41); Mean Corp Hgb Conc 32.5 g/dL (32-36); Mean Corpuscular Hgb 30.3 pg (27.0-32.0); Mean Platelet Vol. 9.1 fl (6.2-12.0); Monocyte# 0.72 X10^3/uL; Monocyte% 6.9 % (0-10); NRBC Flagged by Analyzer 0 % (0-5); Neutrophil # 8.05 X10^3/uL (2.7-7.7); Neutrophil % 76.9 % (47-70); Platelet Count 259 K/mm3 (150-450); RBC Distribution Width CV 13.3 % (11.6-14.6); RBC Distribution Width SD 45.1 fl (35.1-43.9); Red Blood Count 4.46 M/mm3 (4.2-5.4); White Blood Count 10.5 K/mm3 (4.4-11.0)
[2019-10-26 23:59] LABS: Anion Gap 3 (5-15); BUN 11 mg/dL (7-18); BUN/Creat Ratio 14.8 RATIO (10-20); Calcium,Total 9.2 mg/dL (8.5-10.1); Chloride 105 mmol/L (98-107); Creatinine, Serum 0.74 mg/dL (0.55-1.02); EST Glomerular Filtration Rate 88 mL/min (>60); Est Glom Filt Rate - Afr Amer 106 mL/min (>60); Estimated Creatinine Clearance 75.24 ml/min; Glucose 259 mg/dL (74-106); Potassium 3.7 mmol/L (3.5-5.1); Sodium Level 138 mmol/L (136-145)
--- NOTE | 2019-10-27 00:17 | ED.DEP ---
ED Disposition - Plan for ED Patient: Disposition: Home or Assisted Living Instructions: ED Palpitations Referrals: Debo Bowers MD [Primary Care Provider] - As soon as possible Additional Instructions: Your work-up today was unremarkable. Follow-up with your doctor to have your Holter monitor placed.
== END 2019-10-27 00:33 | disposition home or self-care (01) ==
LOC: ED 10-27 00:32
PROVIDERS: Emergency Provider Emergency Medicine; PCP Internal Medicine
DX: R00.2 Palpitations (principal); E11.65 Type 2 diabetes mellitus with hyperglycemia; Z79.4 Long term (current) use of insulin
CPT/HCPCS: 71045; 80048; 84484; 85025; 93005; 99285

== ENCOUNTER → 2020-11-15 06:03 | Outpatient (CLI) | payer MEDICAID, SELFPAY ==
--- NOTE | 2020-11-15 16:25 | STRESSREP ---
Stress Test Report Exercise myocardial perfusion stress test. 50-year-old lady with a history of chest pain for preoperative evaluation. Medications atenolol vitamin D NovoLog. Stress protocol: Resting EKG demonstrates normal sinus rhythm with a rate of 79 bpm normal intervals are noted resting blood pressure is 132/72 mmHg. The patient exercised according to regular Shreyas protocol for total duration of 3 minutes. The maximum heart rate attained was 157 bpm which was 92% of max infected heart rate the maximum workload was 4.6 metabolic equivalents. The patient maintained sinus rhythm throughout the recording. At rest there were no ST or T wave changes noted to suggest abnormal flow reserve. At peak infusion nonspecific ST changes were noted with did not meet the criteria for ischemia. No clinical angina was noted. Myocardial perfusion protocol. 14.8 mCi of technetium 99m sestamibi was injected at rest. The patient exercised according to regular Shreyas protocol for 3 minutes. At peak exercise 44.9 mCi of technetium 99m sestamibi was injected stress images were obtained stress and rest images were reconstructed and compared in the short axis vertical long horizontal long axis. Gated images were also obtained Perfusion SPECT analysis: Review of the stress images demonstrated normal uptake of tracer noted in all areas of the myocardium. The resting images similarly demonstrated normal uptake of tracer noted in all areas of the myocardium. The rest of the ansari appear to be normally perfused. No previous infarct is noted. Gated SPECT analysis: The gated ejection fraction is 49%. Conclusion: Normal exercise myocardial perfusion stress test noted at a low workload. The low workload may affect sensitivity for detection of ischemia. Low normal ejection fraction.
== END ==
PROVIDERS: PCP Internal Medicine
DX: R07.9 Chest pain, unspecified (principal)
CPT/HCPCS: 78452; 93017; A9500; A4216

== ENCOUNTER 2021-01-27 05:57 | Day surgery (SDC) | payer MEDICAID, SELFPAY ==
--- NOTE | 2021-01-25 09:03 | HP.PCM_ITS ---
History and Physical Date of Admission: 01/27/21 HPI: The patient is a 50 year old female presenting for discussion regarding surgical intervention for abnormal uterine bleeding. Patient saw nurse practitioner Ayala Cordoba for abnormal bleeding has been bleeding since November 28. Endometrial biopsy performed was benign. Patient states that starting Aygestin taking it twice a day has controlled the bleeding for her. Patient would like to proceed with a hysteroscopy D&C for further evaluation. Patient is considering a Mirena IUD for endometrial protection as well as abnormal uterine bleeding. Patient states she has not had any bleeding since her previous D&C in 2018 but according to her lab results she is likely perimenopausal. Patient has a extensive medical history and states that she received cardiac clearance in November 2019 prior to having procedure performed by Dr. Vincenzo Her. Patient reports her glucose levels are well controlled. Patient denies any chest pain or shortness of breath. Patient offers no other concerns today would like to proceed with surgical management. ? pre-operative visit. She is scheduled for Hysteroscopy D&C, with possible Mirena IUD insertion date to be determined. Procedure discussed along with risks, benefits and complications. Other alternatives discussed for management. Consent form signed? Yes. ? ? PAST MEDICAL HISTORY PAST MEDICAL HISTORY Diagnosis Date ? Abdominal pain, left upper quadrant ? ? Abdominal pain, unspecified site ? ? Acquired spondylolisthesis 07/25/2010 ? Acute gastritis without mention of hemorrhage ? ? Calcaneal spur 10/15/2009 ? Chronic obstructive pulmonary disease (COPD) (HCC) ? ? Cough ? ? DEPRESSIVE DISORDER NEC 06/15/2007 ? Depressive disorder, not elsewhere classified ? ? Diabetes mellitus without mention of complication ? ? Diabetes mellitus ? Diabetes mellitus without mention of complication ? ? Diabetes mellitus type 2 ? Displacement of lumbar intervertebral disc without myelopathy 12/30/2009 ? Esophageal reflux 10/01/2006 ? Esophagitis, unspecified ? ? Fibromyalgia 07/25/2010 ? Generalized anxiety disorder ? ? Anxiety, Generalized ? Hemorrhage of gastrointestinal tract, unspecified ? ? Hypertension ? ? Internal hemorrhoids without mention of complication ? ? Left carpal tunnel syndrome 09/11/2013 ? Lumbago 08/05/2008 ? Migraine 03/02/2009 ? Mixed stress and urge urinary incontinence ? ? Myalgia and myositis, unspecified ? ? Obesity, unspecified ? ? Obesity ? ZHAO (obstructive sleep apnea) 05/01/2011 ? uses C-PAP ? PMH - PAST MEDICAL HISTORY OF ? ? allergic syndrome; gets allergy shots ? PMH - PAST MEDICAL HISTORY OF ? ? bipolar ? Psoriasis and similar disorders ? ? Sleep apnea ? ? 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 Tubular adenoma of colon 02/05/15 ? Colonoscopy and EGD at [facility] ? Unspecified asthma(493.90) ? ? Dr. Grissom saw in the past ? Vitamin D deficiency 11/29/2010 ? on calcitriol ? ? PAST SURGICAL HISTORY PAST SURGICAL HISTORY Procedure Laterality Date ? DELIVERY ONLY ? 2001,2003 ? COLONOSCOP W/ OR W/O [facility] SPEC ? 02/05/2015 ? Colonoscopy out pt [facility] ? EGD W/O [facility] SPECIMEN W/BX ? 05/02/2006 ? EGD W/O OR W/BRUSH/WASH ? 02/05/2015 ? EGD out pt [facility] ? EGD W/O OR W/BRUSH/WASH ? 01/13/2019 ? EGD ? HYSTEROSCOPY, SURGICAL; WITH SAMPLI ? 08/08/2018 ? AUB, menorrhagia ? INCIS TENDON SHEATH,RADIAL STYLOID Right 11/17/2020 ? Right wrist 1st dorsal compartment release, synovectomy, 2nd dorsal release ? PAST SURGICAL HISTORY OF ? 07/2005 ? carpal tunnel right hand ? PAST SURGICAL HISTORY OF ? 1973 ? upper lip - plastic surgery. ? PAST SURGICAL HISTORY OF ? 2010 ? right plantar fasciectomy ? SIGMOIDOSCOPY FLEX DIAG ? 05/22/2006 ? ? ? CURRENT MEDICATIONS Current Outpatient Medications Medication Sig Dispense Refill ? norethindrone (AYGESTIN) 5 mg tablet Take 1 tablet by mouth as directed. 1 tablet 3 times daily until bleeding stops then twice daily for 2 days then 1 tablet daily for 2 days. 30 tablet 0 ? ferrous sulfate 325 mg (65 mg iron) tablet Take 1 tablet by mouth daily with breakfast. ? ? ? Cholecalciferol, Vitamin D3, 25 mcg (1,000 unit) cap Takes 1600 to 2000 units daily with supplement OTC ? ? ? DULoxetine (CYMBALTA) 30 mg capsule Take 1 capsule by mouth once daily. 90 capsule 3 ? oxyCODONE IR (ROXICODONE) 10 mg tab Take 1 tablet by mouth twice daily for 30 days. May take one pill extra per day as needed for exacerbation of pain (not daily). Do not start before January 03, 2021. 80 tablet 0 ? [START ON 02/02/2021] oxyCODONE IR (ROXICODONE) 10 mg tab Take 1 tablet by mouth twice daily for 30 days. May take one pill extra per day as needed for exacerbation of pain (not daily). Do not start before February 02, 2021. 80 tablet 0 ? insulin glargine (LANTUS SOLOSTAR U-100 INSULIN) 100 unit/mL (3 mL) Inject 120 Units subcutaneously daily at bedtime. ? ? ? ibuprofen (MOTRIN) 800 mg tablet Take 1 tablet by mouth every 8 hours as needed. 30 tablet 1 ? valsartan (DIOVAN) 40 mg tablet Take 1 tablet by mouth once daily. 30 tablet 3 ? diclofenac (VOLTAREN) 1 % topical gel Apply 2 g to affected area four times daily. 50 g 1 ? nystatin (MYCOSTATIN) cream Apply 1 application to affected area twice daily as needed. 60 g 2 ? omega-3/dha/epa/dpa/fish oil (OMEGA-3 2100 ORAL) Take 1 tablet by mouth twice daily. ? ? ? ascorbic acid (VITAMIN C ORAL) Take 3,000 Units by mouth once daily. ? ? ? fluticasone (FLOVENT HFA) 220 mcg/actuation inhaler Inhale 2 Puffs as instructed twice daily. 1 Inhaler 11 ? albuterol HFA (VENTOLIN HFA) 90 mcg/actuation inhaler Inhale 2 Puffs as instructed every 4 hours as needed for Wheezing/Shortness of Breath. 8 g 1 ? Insulin [place], Disposable, (BD INSULIN PEN NEEDLE UF) 29 gauge x 1/2 Use 1 Needle For Each Dose 3-4 Times Daily With Novolog Pen For Meals and At Bedtime if Needed 100 Each 11 ? fluconazole (DIFLUCAN) 150 mg tablet Take by mouth. Take at onset of yeast infection. Repeat after 5 to 7 days if ongoing symptoms. May treat recurrent episodes as needed. 2 tablet 2 ? ergocalciferol 50,000 unit capsule (VITAMIN D2, DRISDOL) Take 1 capsule by mouth one time a week. 4 capsule 12 ? insulin aspart U-100 (NOVOLOG FLEXPEN U-100 INSULIN) 100 unit/mL (3 mL) WITH FIRST BITE OF FOOD, 30 UNITS W/BREAKFAST, 30 UNITS W/LUNCH, 30 UNITS W/ DINNER; MAY ADJUST WITH SLIDING SCALE GIVEN HIGH BLOOD SUGAR 90 mL 3 ? atenolol (TENORMIN) 25 mg tablet Take 1 tablet by mouth once daily. As directed (Patient taking differently: Take 12.5 mg by mouth twice daily. ) 90 tablet 3 ? Blood-Glucose Meter (FREESTYLE LITE METER) monitoring kit Check blood sugars as directed for controlled Type 2 DM without complication 1 Each 0 ? montelukast (SINGULAIR) 10 mg tablet Take 1 tablet by mouth daily at bedtime. 90 tablet 3 ? hydroCHLOROthiazide (HYDRODIURIL, ESIDRIX) 25 mg tablet Take 1 tablet by mouth once daily. As needed for swelling from fluid retention 90 tablet 3 ? omeprazole (PRILOSEC) 20 mg capsule Take 1 capsule by mouth daily before breakfast. 1/2 hr before meal. As directed. 90 capsule 3 ? flash glucose sensor (FREESTYLE DUSTY 14 DAY SENSOR) kit Check sugars as directed for control of DM. E11, Z79.4 1 Kit 11 ? cyclobenzaprine (FLEXERIL) 10 mg tablet Take 0.5-1 tablets by mouth twice daily as needed. 30 tablet 0 ? mupirocin (BACTROBAN) 2 % ointment Apply 1 application to affected area three times daily. Location: torso wounds as directed till healed 1 Tube 0 ? blood sugar diagnostic (BLOOD GLUCOSE TEST) test strip Test blood sugar(s) 5 times daily. (Test strips brand covered by AddressReport) Dx: Type 2 DM - Uncontrolled Insulin: Yes 400 Strip 11 ? CPAP CPAP @ 13 cm of water with humidification. Mask (per patient preference) optional chin strap (if indicated) , filters, tubing, humidifier and lifetime supplies. EPR set at 3. (G47.33) ZHAO (obstructive sleep apnea) 1 Device 0 ? COMPOUNDED PRESCRIPTION CPAP supplies--mask per patient preference, tubing, humidifier as needed. G47.33, Z99.89 ZHAO on CPAP 1 Each 0 ? Blood-Glucose Meter monitoring kit Glucose Meter of Choice (covered by AddressReport) - Kit - Dx: Type 2 DM - Uncontrolled , Insulin Yes 1 Each 0 ? blood sugar diagnostic (FREESTYLE LITE STRIPS) test strip Test blood sugars 5 times per day and as needed. Dx: E11.65; Insulin: yes 400 Strip 4 ? Incontinence Pad, Liner, Disp pads Change pad 3 to 5 times daily. N39.46 150 Each 5 ? COMPOUNDED PRESCRIPTION Bilateral compression Knee Hi 20-30 mm. ICD 10; 459.81; 782.3 1 Each 0 ? Compression Knee Highs KNEE HIGH COMPRESSION STOCKINGS 30-40 MM. DX: (I87.8/459.81) Venous stasis (R60.0782.3) Bilateral edema of lower extremity 2 Each 0 ? Lancets (FREESTYLE LANCETS) lancets tests sugar 4 to 6 times daily DX:250.02 Insulin dependent (this is corrected RX) 200 Each 11 ? Cane Misc Rika 1 Each. Diagnosis: 724.2 Back pain 1 Device 0 ? Current Facility-Administered Medications Medication Dose Route Frequency Provider Last Rate Last Admin ? perflutren lipid microspheres 1.3 mL in NaCl (PF) 0.9% 10 mL injection (DEFINITY) INTRAVENOUS DIRECTED PRN Nica Cm MD, PhD ? sodium chloride 0.9 % (flush) 10 mL (BD POSIFLUSH) 10 mL INTRAVENOUS DIRECTED PRN Nica Cm MD, PhD ? ? ALLERGIES: Losartan, Vicodin [Hydrocodone-Acetaminophen], Amlodipine, Codeine Antitussive Cough, Latex, Lisinopril, Metformin, and Relafen [Nabumetone] ? PERSONAL HISTORY: SOCIAL HISTORY Social History ? Tobacco Use ? Smoking status: Former Smoker ? ? Quit date: 05/02/1987 ? ? Years since quittin.7 ? Smokeless tobacco: Never Used ? Tobacco comment: social smoker in teens Vaping Use ? Vaping Use: Never used Substance Use Topics ? Alcohol use: No ? Drug use: No ? FAMILY HISTORY: FAMILY HISTORY FAMILY HISTORY Problem Relation Age of Onset ? Cancer Father ? ? AT 71 R/T BLADDER ? Heart Father ? ? Diabetes Mother ? ? Asthma Mother ? ? Heart Mother ? ? Brain Cancer Mother ? ? Asthma Sister ? ? other (ulcers) Sister ? ? ? REVIEW OF SYMPTOMS: negative except as noted above PHYSICAL EXAMINATION: ? VITALS: Blood pressure 126/74, weight 286 lb (129.7 kg), last menstrual period 11/28/2020. ? GENERAL: The patient is well nourished, well hydrated in no acute distress. , The patient is oriented to time, place, and person. NECK: full range of motion NEURO: alert and oriented x 3 ? IMPRESSION: AUB ? PLAN: Hysteroscopy, D&C, Possible mirena IUD insertion ? Pt has been counseled on risks/benefits and alternatives of surgery including but not limited to anesthesia, bleeding, infection, uterine perforation with subsequent , injury to pelvic structures including bowel, bladder, ureters and vessels. Pt wishes to proceed with surgery at this time. ? Mirena IUD referral placed for AUB, contraception ? COVID VACCINATED. CARDIAC CLEARANCE Obtained 11/2020 - stress test negative. ? Pre and post op instructions reviewed. ? Reviewed risks of endometrial cancer with Obesity , DM and HTN. ? ? I have reviewed and updated past medical and surgical history, medications and allergies
--- NOTE | 2021-01-25 13:41 | EKG12_ITS ---
Test Reason : Blood Pressure : / mmHG Vent. Rate : 072 BPM Atrial Rate : 072 BPM P-R Int : 142 ms QRS Dur : 078 ms QT Int : 378 ms P-R-T Axes : 055 047 056 degrees QTc Int : 413 ms Normal sinus rhythm Nonspecific T wave abnormality Abnormal ECG Confirmed by SELVIN AGUILAR, BOBO ([id number]), editor book MCKINLEY STEWART ([id number]) on 01/26/2021 8:45:33 AM Referred By: Juanita Tello Confirmed By:BOBO MONTALVO MD
[2021-01-25 14:41] LABS: Absolute Lymphocyte Count 1.85 X10^3/uL (0.83-4.51); Absolute Neutrophil Count 6.5 X10^3/uL (2.0-7.7); Basophil# 0.04 X10^3/uL; Basophil% 0.4 % (0-1); Eosinophil# 0.11 X10^3/uL; Eosinophils% 1.2 % (0-5); Hemoglobin 12.9 g/dL (12.0-15.0); Lymphocyte # 1.85 X10^3/ul (0.83-4.51); Lymphocyte % 20.3 % (19-41); Mean Corp Hgb Conc 31.5 g/dL (32-36); Mean Corpuscular Hgb 28.9 pg (27.0-32.0); Mean Corpuscular Volume 91.9 fL (81-99); Mean Platelet Vol. 9.1 fl (6.2-12.0); Monocyte# 0.56 X10^3/uL; Monocyte% 6.1 % (0-10); NRBC Flagged by Analyzer 0 % (0-5); Neutrophil # 6.52 X10^3/uL (2.7-7.7); Neutrophil % 71.6 % (47-70); Platelet Count 334 K/mm3 (150-450); RBC Distribution Width CV 12.5 % (11.6-14.6); RBC Distribution Width SD 41.9 fl (35.1-43.9); Red Blood Count 4.46 M/mm3 (4.2-5.4); White Blood Count 9.1 K/mm3 (4.4-11.0)
[2021-01-25 14:54] LABS: Anion Gap 6 (5-15); BUN 12 mg/dL (7-18); BUN/Creat Ratio 15.4 RATIO (10-20); Calcium,Total 9.1 mg/dL (8.5-10.1); Chloride 108 mmol/L (98-107); Creatinine, Serum 0.78 mg/dL (0.55-1.02); EST Glomerular Filtration Rate 83 mL/min (>60); Est Glom Filt Rate - Afr Amer 100 mL/min (>60); Glucose 163 mg/dL (74-106); Potassium 3.9 mmol/L (3.5-5.1); Sodium Level 138 mmol/L (136-145)
[2021-01-27 06:49] VITALS: BP 136/80; PULSE 77; RESP 16; TEMP 36.5; O2SAT 94; BMI 50.2
[2021-01-27] MEDS: Lactated Ringers 1,000 ML 100 ML IV (06:58)
[2021-01-27 07:01] LABS: Internal QC Validated? YES +Cl - CLEAR BKGD; Pregnancy, Urine Negative Negative
--- NOTE | 2021-01-27 07:30 | EMB_PTH ---
PATIENT: MYLES YEAGER ABUACCT #:[id number] LOC: [facility] [place] U#:[id number] AGE/SX: 50/F ROOM: RE01/27/[address]: Dr. Juanita Tello, MDDOB: 1970 BED: DIS: 01/27/2021 SPEC #: [id number] RECD: 01/27/21 08:48 STATUS: NILE VLADISLAV #: [id number] KENZIE: 01/27/21 07:[address]: Juanita Tello DEPT: SURGICAL PATHOLOGY RECD BY: Avani Borges ENTERED: 01/27/21 10:07 SP TYPE: ENDOM BX/C DAMION DR: Dr. Debo Bowers MD Tissues: Endometrium, NOS Procedures: Surgery Specimen Level IV HEADER OPERATION: Hysteroscopy, D & C, Mirena IUD insertion PRE-OP DIAGNOSIS: Abnormal uterine bleeding TISSUE SUBMITTED: Endometrial curettings MICROSCOPIC DIAGNOSIS Endometrial curettings: Consistent with extensive exogenous hormone effect. Fragments of myometrium suspicious for adenomyosis. Fragments of benign ecto- and endocervical mucosa. JUDITH:edgar 01/28/2021 MICROSCOPIC DESCRIPTION Slides are reviewed. GROSS DESCRIPTION Received in fixative is one container labeled with the patient's name and designated endometrial curettings. The specimen consists of multiple fragments of pink hemorrhagic soft tissue that in aggregate measure 5 x 3 x 0.8 cm. The entire specimen is submitted in five cassettes. / JUDITH:edgar 01/27/21 TC:5 CPT: 99659
--- NOTE | 2021-01-27 07:47 | OP.PCM_ITS ---
Problems Associated Problem List Diagnoses (1) Abnormal uterine bleeding (AUB): Report of Operation Date of Procedure: 01/27/21 Pre-Operative Diagnosis: AUB Post-Operative Diagnosis: Same, thickened endometrium Surgery/Procedure Performed:: Hysteroscopy, D&C, MIrena IUD insertion Description of Surgical Findings:: large amount of endometrial tissue Surgeon: Juanita Tello luster applicator: MS3 Type of Anesthesia: MAC Special Medications: none Specimen's removed: Endometrial curettings Drains: none Estimated Blood Loss (mL): 5 Fluids Replaced: 600 Description of Procedure: Medical student: Sergio Prince assisted in hold vaginal retractors. Informed consent was obtained the patient was taken the operating room she was placed in supine position. She was given anesthesia. She was then placed in the [facility] where she was prepped and draped in the normal sterile fashion. At this time the weighted speculum was placed in the posterior fornix of vagina. Single-tooth tenaculum was used to gently grasp the anterior lip the cervix. At this time the uterine cavity was sounded to approximately 12.5 cm. Gentle dilatation was performed once adequate dilatation of the cervix was achieved the hysteroscope using normal saline as a distention medium was placed. Tubal ostia visualized, thickened endometrial tissue. This time hysteroscopy was complete. Sharp curettage performed- large amount of endometrial tissue expelled, and collected on 3 seperate telfa. Tissue will be sent to pathology for evaluation. Hysteroscope reinserted cavity appeared cleared, MIrena IUD opened and placed at uterine fundus without difficulty. strings cut to 3cm from OS. Hysteroscope reinserted IUD at correct position. Tenaculum removed. Good hemostasis. Instrument, lap count correct x 2. Vaginal Sweep was negative. MIRENA LOT [id number] Expiration 05/2023 Grafts/Implants Used: MIRENA IUD Procedure Start Time: 07:36 Procedure Stop Time: 07:45 Admit VTE Documentation VTE Present on Admission: Yes VTE Mechan Device Prophylaxis: SCD's VTE Pharm Prophylaxis ordered?: No Reason prophylaxis not ordered:: Procedure Not Indicated
--- NOTE | 2021-01-27 07:54 | PCM.DC ---
Discharge Instructions Diet Discharge Diet: No restrictions Activity May resume sexual activity in: 1 week Dressing / Incision Call your doctor if you observe: Fever of 101 or Higher, Inability to urinate, Using more than 1 pad per hour and Uncontrolled pain Follow Up Care Please Follow Up With: Juanita Tello MD When: 1-2 weeks post OP if you need an appointment please call [phone] Test Results: Test results from this visit will be discussed in further detail at your follow-up appointment, if applicable. Discharge Plan Admission Attending Provider: Juanita Tello Primary Care Provider: Debo Bowers Discharge Orders/Prescriptions Prescriptions: No Action atenolol 25 MG tablet 25 mg PO QHS RF: 0 duloxetine 30 MG capsule 30 mg PO DAILY RF: 0 Novolog Flexpen 30 units subcut .WITH MEALS RF: 0 omeprazole 40 MG capsule 20 mg PO QHS PRN PRN (Reason: GERD) RF: 0 fluticasone propionate 1 INHALER inhaler 2 puff inhalation BID RF: 0 insulin glargine 100 UNIT/ML insulin pen 120 unit SQ QHS RF: 0 montelukast 10 MG tablet 10 mg PO DAILY RF: 0 cholecalciferol (vitamin D3) 2,000 UNIT capsule 2,000 unit PO DAILY RF: 0 promethazine 25 MG tablet 25 mg PO Q6H PRN PRN (Reason: Nausea) Qty: 10 RF: 0 ferrous sulfate 325 mg (65 mg iron) Tablet 325 mg PO DAILY RF: 0 norethindrone acetate [Aygestin] 5 mg Tablet 5 mg PO TID RF: 0 oxycodone 10 mg Tablet 10 mg PO BID PRN (Reason: Pain) RF: 0 Referrals / Follow Up: Debo Bowers MD [Primary Care Provider] - Disposition Disposition (needs filled in before D/C Order can be placed): Home, Self Care
[2021-01-27 07:55] VITALS: BP 134/75; BP 136/80; PULSE 75; RESP 18; TEMP 36.5; O2SAT 97
[2021-01-27 08:00] VITALS: BP 136/80; BP 137/79; PULSE 70; RESP 18; O2SAT 97
[2021-01-27 08:05] VITALS: BP 127/72; BP 136/80; PULSE 64; RESP 18; O2SAT 96
[2021-01-27 08:10] VITALS: BP 128/72; BP 136/80; PULSE 69; RESP 18; TEMP 36.7; O2SAT 100
[2021-01-27 08:31] LABS: Bedside Glucose 193 mg/dL (70-110)
[2021-01-27 08:53] VITALS: BP 119/61; BP 136/80; PULSE 71; RESP 16; TEMP 36.9; O2SAT 100
== END 2021-01-27 09:00 | disposition home or self-care (01) ==
LOC: SDC 05:57 → AC 05:58
PROVIDERS: PCP Internal Medicine; Referring Provider Obstetrics & Gynecology; Visit Provider Obstetrics & Gynecology
PROC: 0UDB8ZZ Extraction of Endometrium, Via Natural or Artificial Opening Endoscopic (ICD-10-PCS; CPT 58558; principal; 2021-01-27 07:20)
DX: N93.9 Abnormal uterine and vaginal bleeding, unspecified (principal); R93.89 Abnormal findings on diagnostic imaging of other specified body structures; E11.9 Type 2 diabetes mellitus without complications; E66.9 Obesity, unspecified; G47.33 Obstructive sleep apnea (adult) (pediatric); I10 Essential (primary) hypertension; J44.9 Chronic obstructive pulmonary disease, unspecified; M79.7 Fibromyalgia; Z79.4 Long term (current) use of insulin; Z79.51 Long term (current) use of inhaled steroids; Z79.899 Other long term (current) drug therapy; Z83.3 Family history of diabetes mellitus; Z86.010 Personal history of colon polyps; Z87.19 Personal history of other diseases of the digestive system; Z87.891 Personal history of nicotine dependence; Z88.8 Allergy status to other drugs, medicaments and biological substances; Z88.5 Allergy status to narcotic agent
CPT/HCPCS: 00952; 58300; 58558; 36415; 80048; 81025; 82962; 85025; 88305; 93005; J7120; J2405

== ENCOUNTER 2024-03-03 13:35 | Emergency (ER) | payer MEDICAID, SELFPAY ==
[2024-03-03 13:35] VITALS: BP 175/83; PULSE 92; RESP 15; TEMP 35.6; O2SAT 98; BMI 50.6
--- NOTE | 2024-03-03 14:25 | EX.ED.VIS.HA ---
HPI History of Present Illness Chief Complaint: Headache Informant: patient Onset/Context/Timing Onset: Days (3) Context: Gradual Timing: Continuous Quality -Headache: Positive for Dull, Throbbing and Tightness Location: Diffuse Worsened by: Movement Relieved by: Nothing Associated Symptoms/Injury Associated Symptoms: Positive for Fever, Sore Throat, Sinus Pressure, Visual Changes, Blurred Vision and Photophobia; Negative for Nausea, Vomiting, Numbness, Tingling, Preceding Aura or Visual Loss Injury - HELM: Negative for Direct Trauma Narrative Narrative: Patient presents with headache that has been getting worse over the last 3 days. Patient states it is gradually gotten worse. Patient states it has been constant. Patient states it is now going down into her neck. Patient states it is diffuse across her entire head and neck. Patient states it is worse with movement. Patient states nothing seems to help with it. Patient admits to subjective fevers and chills. Patient also admits to sore throat. Patient admits to some blurry vision and photophobia. [facility] Medical History Bipolar disorder Depression Psoriasis Insulin dependent diabetes mellitus Ambulates with cane Arthritis Anemia Fatty liver Migraine headache Vertigo Injury of back Injury of head and neck History of hiatal hernia Shortness of breath on exertion Gastric reflux Non-smoker CPAP (continuous positive airway pressure) dependence Asthma COPD (chronic obstructive pulmonary disease) Chronic cough History of edema History of echocardiogram Cardiology follow-up encounter History of stress test Hypertension History of irregular heartbeat Bartholin cyst Home Medications ?Medication ?Instructions ?Recorded ?Last Taken ?Type Novolog Flexpen 30 units subcut .WITH MEALS 07/05/13 07/05/13 History DIABETES atenolol 25 mg tablet 25 mg PO QHS PALPITATIONS 07/05/13 01/12/19 22:00 History 12.5 MG duloxetine 30 mg capsule,delayed 30 mg PO DAILY DEPRESSION 07/05/13 07/05/13 History release fluticasone propionate 220 2 puff inhalation BID COPD/ASTHMA 02/03/15 Unknown History mcg/actuation HFA aerosol inhaler omeprazole 40 mg capsule,delayed 20 mg PO QHS PRN PRN GERD 02/03/15 Unknown History release insulin glargine 100 unit/mL (3 120 unit SQ QHS DIABETES 08/01/18 Unknown History mL) subcutaneous pen montelukast 10 mg tablet 10 mg PO DAILY ALLERGIES 08/01/18 Unknown History cholecalciferol (vitamin D3) 50 2,000 unit PO DAILY 01/10/19 Unknown History mcg (2,000 unit) capsule promethazine 25 mg tablet 25 mg PO Q6H PRN PRN Nausea #10 02/01/19 Unknown Rx tabs ferrous sulfate 325 mg (65 mg 325 mg PO DAILY supplement 01/24/21 Unknown History iron) tablet norethindrone acetate 5 mg tablet 5 mg PO TID bleeding 01/24/21 Unknown History (Aygestin) oxycodone 10 mg tablet 10 mg PO BID PRN Pain 01/24/21 Unknown History tramadol 50 mg tablet 50 mg PO Q4H PRN PRN Pain 3 days 03/03/24 Unknown Rx #20 tabs Allergy/AdvReac Type Severity Reaction Status Date / Time Seasonal Allergies: Uncoded Allergy Mild NEEDS Verified 01/17/22 08:29 FOLLOW-UP codeine Allergy Nausea Verified 01/27/21 06:25 hydrocodone bitartrate (From AdvReac Nausea Verified 01/27/21 06:25 Vicodin) latex AdvReac Rash Verified 01/27/21 06:25 nabumetone (From Relafen) AdvReac Upset Verified 01/27/21 06:25 Stomach Surgical History History of carpal tunnel release History of colonoscopy History of plastic surgery History of D&C History of hand surgery History of foot surgery Social History Smoking Status: Never smoker ROS ROS ED Constitutional Constitutional ED: Reports chills, fever(s) and subjective Eyes Eyes: Reports blurry vision; Denies diplopia ENT ENT ED: Reports sore throat; Denies rhinorrhea Cardiovascular Cardiovascular: Denies chest pain or palpitations Respiratory/Chest Respiratory/Chest: Denies cough or dyspnea Gastrointestinal Gastrointestinal: Denies nausea or vomiting Genitourinary Genitourinary ED: Denies dysuria or hematuria Musculoskeletal Musculoskeletal: Reports back pain and neck pain Integumentary Denies abscess or rash Neurologic Neurologic: Reports headache(s); Denies weakness Allergic/Immunologic Allergic/Immunologic ED: Denies mouth swelling or urticaria EXAM Physical Exam Const Vital Signs: 03/03/24 13:35 03/03/24 15:35 03/03/24 17:00 Temperature 96.1 F L Temperature Source Temporal Pulse Rate 92 90 Respiratory Rate 15 18 16 Blood Pressure 175/83 H 127/53 H 152/90 H Blood Pressure Mean 113 77 110 Pulse Ox 98 99 Oxygen Delivery Method Room Air Positive well nourished and well developed General Appearance ED: well developed and NAD HEENT Reports normocephalic and moist mucous membranes atraumatic Neck no JVD Neck Narrative: There is tenderness over the cervical spine paraspinal muscles. Range of motion was limited in all motions of the cervical spine secondary to pain. General: tenderness Resp normal respiratory effort and clear to auscultation bilaterally Cardio regular rate and regular rhythm GI non-tender and non-distended Palpation: soft Extremity normal to inspection and full ROM General Extremety ED: Negative for edema or tenderness General Extremity: Negative for edema Neuro oriented x3, CN's II-XII intact bilaterally and no sensory deficits noted Deonte Coma Scale: document GCS findings Spontaneous Obeys Commands Oriented 15 Sensorium / Orientation: awake and alert Speech: speech normal Motor Exam: strength 5/5 throughout Psych mental status grossly normal MDM MDM MDM Narrative Medical decision making narrative: Differential diagnosis includes intracranial bleeding, migraine headache, tension headache, cluster headache, viral illness, and intracranial hypertension. CT scan of the brain will be obtained to assess for intracranial bleeding or stroke. CTA of the head and neck will be obtained to assess for aneurysm and occult bleeding. CBC will be obtained to assess for leukocytosis and anemia. Basic metabolic profile will be obtained to assess for electrolyte abnormality and renal function. PT was INR and PTT will be obtained to assess for coagulopathy. Lab Data Attestation: I reviewed the patient's lab results. Lab results narrative: CBC was reviewed and was within normal limits. PT was INR and PTT were reviewed and were essentially within normal limits. Basic metabolic profile was reviewed and was normal. Labs: Laboratory Results - last 24 hr 03/03/24 15:29 WBC 10.3 RBC 5.24 Hgb 15.6 H Hct 48.0 H MCV 91.6 MCH 29.8 MCHC 32.5 RDW Std Deviation 43.8 RDW Coeff of Ruslan 13.2 Plt Count 233 MPV 9.4 Immature Gran % (Auto) 0.600 Neut % (Auto) 80.1 H Lymph % (Auto) 13.2 L Cocke % (Auto) 5.0 Eos % (Auto) 0.8 Baso % (Auto) 0.3 Absolute Neuts (auto) 8.3 H Absolute Lymphs (auto) 1.36 Nucleated RBC % 0 PT 14.8 INR 1.2 APTT 32.2 Sodium 140 Potassium 4.4 Chloride 106 Carbon Dioxide 30.0 Anion Gap 4 L BUN 9 Creatinine 0.78 Estim Creat Clear Calc 108.47 Est GFR (MDRD) Af Amer 99 Est GFR (MDRD) Non-Af 82 BUN/Creatinine Ratio 11.6 Glucose 133 H Calcium 10.5 H Radiography Diagnostic Testing: CTA of the head and neck was obtained. There is no acute bleeding or infarct noted. There is no aneurysm. There is no soft tissue swelling in the neck. There is no large vessel occlusion. This was interpreted by the radiologist and was also independently reviewed by myself. Treatment and Re-Evaluation Narrative: Patient was given IV fluids, Reglan, and Benadryl. Patient had minimal relief with this. Patient was given a dose of Imitrex. Patient still had minimal relief with this. I discussed the findings with the patient. Patient is concerned that this could be from meningitis. Patient was advised that with a normal white blood cell count and being afebrile, if it is meningitis it would most likely be viral. I discussed options of lumbar puncture and testing of the CSF. Patient states she had a spinal headache with her last epidural when she had her last . Patient would prefer to not have a lumbar puncture performed because of this. Patient was given a prescription for a short course of tramadol. Patient was instructed to drink plenty of fluids. Patient was instructed to follow-up with her primary care physician in 3 to 5 days. Patient was instructed to return if worse in any way. Patient understood and was agreeable with the plan. All questions were answered. Discharge Plan Triage Chief Complaint: Headache ED Provider: Parag Boo Dx/Rx/DC Orders Clinical Impression: Headache, Type 2 diabetes mellitus, Neck pain Instructions: ED Headache Unspecified, ED Neck Pain Prescriptions: New tramadol 50 mg tablet 50 mg PO Q4H PRN PRN (Reason: Pain) 3 Days Qty: 20 0RF No Action atenolol 25 MG tablet 25 mg PO QHS duloxetine 30 MG capsule 30 mg PO DAILY Novolog Flexpen 30 units subcut .WITH MEALS Patient Comments: DIRECTED/SLIDING SCALE omeprazole 40 MG capsule 20 mg PO QHS PRN PRN (Reason: GERD) fluticasone propionate 1 INHALER inhaler 2 puff inhalation BID insulin glargine 100 UNIT/ML insulin pen 120 unit SQ QHS Patient Comments: 2 INJECTIONS 55 UNITS EACH montelukast 10 MG tablet 10 mg PO DAILY cholecalciferol (vitamin D3) 2,000 UNIT capsule 2,000 unit PO DAILY promethazine 25 MG tablet 25 mg PO Q6H PRN PRN (Reason: Nausea) Qty: 10 0RF ferrous sulfate 325 mg (65 mg iron) Tablet 325 mg PO DAILY norethindrone acetate [Aygestin] 5 mg Tablet 5 mg PO TID oxycodone 10 mg Tablet 10 mg PO BID PRN (Reason: Pain) Primary Care Provider: Debo Bowers Referrals: Debo Bowers MD [Primary Care Provider] - 3-5 Days Print Language: Bengali Disposition Disposition: Home, Self Care
--- NOTE | 2024-03-03 14:45 | CT_ITS ---
STUDY: CTA HEAD AND NECK WITH CONTRAST REASON FOR EXAM: Female, 53 years old. Headache, neck pain RADIATION DOSAGE (If Supplied By Facility): CTDIvol = ( 26.47 ) mGy, DLP = ( 1681.49 ) mGycm TECHNIQUE: CT angiography was performed with a multi-detector CT scanner. Data acquisition was obtained from the skull base through the vertex following intravenous administration of IV 100mL Isovue-370. MIP images were reconstructed from the axial data set. Post-processing of the angiographic images was performed, with multiplanar reformation and 3D reconstruction. Individualized dose optimization techniques were used for this CT. COMPARISON: No relevant priors. FINDINGS: Normal bilateral petrous carotid arteries. Normal right cavernous carotid artery with a normal supraclinoid bifurcation. Normal left cavernous carotid artery with a normal supraclinoid bifurcation. Normal right A1 segments of the anterior cerebral artery. Normal left A1 segments of the anterior cerebral artery. Anterior communicating artery not visualized consistent with normal variant Normal bilateral A2 segments of the anterior cerebral arteries. Normal right M1 and M2 segments of the middle cerebral arteries, with a normal M1 bifurcation. Normal left M1 and M2 segments of the middle cerebral arteries, with a normal M1 bifurcation. Hypoplastic right posterior communicating artery (PCOM). Hypoplastic left posterior communicating artery (PCOM). Right vertebral is dominant and normal caliber. Left vertebral is hypoplastic and terminates in PICA consistent with normal variant. Normal basilar artery with a normal basilar bifurcation. The visualized bilateral superior cerebellar (SCA) arteries are normal. Normal bilateral P1, P2 and visualized P3 segments of the posterior cerebral arteries. There is no demonstrated aneurysm of the rose[place] of [place]. There is no demonstrated abnormality of the visualized brain. AORTIC ARCH: Normal visualized aortic arch. Normal origins of the brachiocephalic, left common carotid, and left subclavian arteries. RIGHT CAROTID ARTERIES: Normal right common carotid artery (CCA). Normal right common carotid bulb. Normal origin of the right internal carotid (ICA) artery without a hemodynamically significant stenosis. Normal visualized cervical portion of the right internal carotid artery. Normal origin of the right external carotid artery (ECA). LEFT CAROTID ARTERIES: Normal left common carotid artery (CCA). Normal left common carotid bulb. Normal origin of the left internal carotid (ICA) artery without a hemodynamically significant stenosis. Normal visualized cervical portion of the left internal carotid artery. Normal origin of the left external carotid artery (ECA). VERTEBRAL ARTERIES: Right vertebral is dominant and normal caliber. There is hypoplastic left vertebral terminating in PICA. CT/CTA Head AND Neck W/ Contrast IMPRESSION: Normal CTA Head and neck with contrast. Electronically Signed: Dhaval Hurtado MD at 16:45 EDT ,
[2024-03-03] MEDS: DiphenhydrAMINE 50 MG/ML Syringe 25 MG IV (15:20)
[2024-03-03] MEDS: Metoclopramide 10 MG/2 ML Vial IV (15:20)
[2024-03-03] MEDS: 0.9% Normal Saline (1000mL) 1,000 ML 999 ML IV (15:24)
[2024-03-03 15:35] VITALS: BP 127/53; RESP 18
[2024-03-03 15:45] LABS: Absolute Lymphocyte Count 1.36 X10^3/uL (0.83-4.51); Absolute Neutrophil Count 8.3 X10^3/uL (2.0-7.7); Basophil# 0.03 X10^3/uL; Basophil% 0.3 % (0-1); Eosinophil# 0.08 X10^3/uL; Eosinophils% 0.8 % (0-5); Hemoglobin 15.6 g/dL (12.0-15.0); Lymphocyte # 1.36 X10^3/ul (0.83-4.51); Lymphocyte % 13.2 % (19-41); Mean Corp Hgb Conc 32.5 g/dL (32-36); Mean Corpuscular Hgb 29.8 pg (27.0-32.0); Mean Corpuscular Volume 91.6 fL (81-99); Mean Platelet Vol. 9.4 fl (6.2-12.0); Monocyte# 0.52 X10^3/uL; NRBC Flagged by Analyzer 0 % (0-5); Neutrophil # 8.28 X10^3/uL (2.7-7.7); Neutrophil % 80.1 % (47-70); Platelet Count 233 K/mm3 (150-450); RBC Distribution Width CV 13.2 % (11.6-14.6); RBC Distribution Width SD 43.8 fl (35.1-43.9); Red Blood Count 5.24 M/mm3 (4.2-5.4); White Blood Count 10.3 K/mm3 (4.4-11.0)
[2024-03-03 15:57] LABS: Anion Gap 4 (5-15); BUN 9 mg/dL (7-18); BUN/Creat Ratio 11.6 RATIO (10-20); Calcium,Total 10.5 mg/dL (8.5-10.1); Chloride 106 mmol/L (98-107); Creatinine, Serum 0.78 mg/dL (0.55-1.02); EST Glomerular Filtration Rate 82 mL/min (>60); Est Glom Filt Rate - Afr Amer 99 mL/min (>60); Estimated Creatinine Clearance 108.47 ml/min; Glucose 133 mg/dL (74-106); Potassium 4.4 mmol/L (3.5-5.1); Sodium Level 140 mmol/L (136-145)
[2024-03-03 16:01] LABS: International Normalized Ratio 1.2; Prothrombin Time (Protime)PT. 14.8 SECONDS (11.7-14.9)
[2024-03-03 16:02] LABS: Partial Thromboplast Time 32.2 Seconds (24.1-36.2)
[2024-03-03 17:00] VITALS: BP 152/90; PULSE 90; RESP 16; O2SAT 99
[2024-03-03] MEDS: SUMAtriptan 6 MG/0.5 ML Vial SC (17:38)
[2024-03-03] MEDS: Morphine 2 MG/ML Syringe IV (18:15)
[2024-03-03 18:19] VITALS: BP 146/64; PULSE 72; RESP 15; TEMP 37.2; O2SAT 96
== END 2024-03-03 18:22 | disposition home or self-care (01) ==
PROVIDERS: Emergency Provider Emergency Medicine; PCP Internal Medicine; Visit Provider Emergency Medicine
DX: R51.9 Headache, unspecified (principal); F31.9 Bipolar disorder, unspecified; J44.9 Chronic obstructive pulmonary disease, unspecified; E11.9 Type 2 diabetes mellitus without complications; Z79.4 Long term (current) use of insulin; M54.2 Cervicalgia; I10 Essential (primary) hypertension; J02.9 Acute pharyngitis, unspecified
CPT/HCPCS: 70496; 70498; 80048; 85025; 85610; 85730; 96361; 96372; 96374; 96375; 99283; J7030; Q9967; A4216; J3030

== ENCOUNTER 2024-06-27 14:23 | Outpatient (RCR) | payer MEDICAID, SELFPAY | END 2024-06-27 19:00 | disposition home or self-care (01) | LOC: PT 14:23 | PROVIDERS: PCP Internal Medicine; Referring Provider Internal Medicine; Visit Provider Internal Medicine | DX: M25.561 Pain in right knee (principal); M17.11 Unilateral primary osteoarthritis, right knee; M79.671 Pain in right foot; M79.672 Pain in left foot; G89.29 Other chronic pain ==

== ENCOUNTER 2025-01-09 05:42 | Day surgery (SDC) | payer MEDICAID, SELFPAY ==
--- NOTE | 2025-01-06 12:33 | EKG12_ITS ---
Test Reason : PREOP Blood Pressure : */* mmHG Vent. Rate : 66 BPM Atrial Rate : 66 BPM P-R Int : 156 ms QRS Dur : 80 ms QT Int : 392 ms P-R-T Axes : 66 51 47 degrees QTcB Int : 410 ms Normal sinus rhythm Normal ECG Confirmed by JESSE AGUILAR, SONJA ([id number]), film and video editor MCKINLEY STEWART ([id number]) on 01/07/2025 6:48:27 AM Referred By: Juanita Tello Confirmed By: SONJA MOLINA MD
[2025-01-06 13:27] LABS: Hematocrit 41.4 % (37-47); Hemoglobin 13.5 g/dL (12.0-15.0); Mean Corp Hgb Conc 32.6 g/dL (32-36); Mean Corpuscular Volume 92.0 fL (81-99); Mean Platelet Vol. 9.2 fl (6.2-12.0); Platelet Count 215 K/mm3 (150-450); RBC Distribution Width CV 13.2 % (11.6-14.6); RBC Distribution Width SD 44.3 fl (35.1-43.9); Red Blood Count 4.50 M/mm3 (4.2-5.4); White Blood Count 8.3 K/mm3 (4.4-11.0)
[2025-01-06 14:33] LABS: Anion Gap 9 (5-15); BUN 17 mg/dL (4-19); BUN/Creat Ratio 23.5 RATIO (10-20); Calcium,Total 9.5 mg/dL (7.6-11.0); Carbon Dioxide 26.0 mmol/L (21.0-32.0); Chloride 104 mmol/L (98-108); Glucose 161 mg/dL (70-99); Potassium 4.3 mmol/L (3.3-5.1)
--- NOTE | 2025-01-07 14:24 | PAT.ANE_ITS ---
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 When Was Last Pacemaker Check QUESTION #4 FULL TEXT: You/Your Family Experience fever (hyperthermia) with Anesthesia Last Oral Intake Last Oral intake: Last Oral Intake NPO since Meds taken in AM with sips of water? Meds patient instructed to take am of surgery PONV PONV - application security engineer: PONV - application security engineer Female Yes 01/05/25 14:06 HX of Motion Sickness No 01/05/25 14:06 HX of N/V After Surgery No 01/05/25 14:06 Non-Smoker Yes 01/05/25 14:06 Duration of Surgery greater No 01/05/25 14:06 than 60 minutes Number of Risk Factors 2 01/05/25 14:06 PONV Score Moderate Risk 01/05/25 14:06 Height & Weight Height & Weight: Anesthesia: Height & Weight Height 5 ft 3 in 03/03/24 13:35 Respiratory Assessment Respiratory Assessment - application security engineer: Respiratory Tract Infection Hx - application security engineer Hx Respiratory Tract Infection No 01/05/25 14:06 STOP Sleep Apnea STOP Sleep Apnea - application security engineer: STOP Sleep Apnea - application security engineer Hx Hypertension No 01/05/25 14:06 Hx Sleep Apnea No 01/05/25 14:06 CPAP Yes 01/27/21 07:55 BIPAP No 01/24/21 14:20 Do you snore loudly (louder No 01/05/25 14:06 than talking or can be heard Do you often feel tired/ No 01/05/25 14:06 fatigued/ sleepy during daytime? Has anyone observed you stop No 01/05/25 14:06 breathing during sleep? STOP Results Negative 01/05/25 14:06 QUESTION #5 FULL TEXT : Do you snore loudly (louder than talking or can be heard through closed doors)? 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 Specify any problems Hx of Preganancy in last 3 No 01/05/25 14:06 Months Nurse Filling Out Transfusion [id number] 01/05/25 14:06 & Questions: Date: 01/05/25 01/05/25 14:06 Time: 14:14 01/05/25 14:06 Patient unable to answer at this time (ie. confused, unrespo /Reproduction History /Reproductive History - application security engineer: /Reproductive Hx- application security engineer Hx Now Gestational Age (in weeks): EDC: Hx Hx Para Hx Section SAB No 01/24/21 14:20 PFSH Medical History Bipolar disorder Depression Psoriasis Insulin dependent diabetes mellitus Ambulates with cane Arthritis Anemia Fatty liver Migraine headache Vertigo Injury of back Injury of head and neck History of hiatal hernia Shortness of breath on exertion Gastric reflux Non-smoker CPAP (continuous positive airway pressure) dependence Asthma COPD (chronic obstructive pulmonary disease) Chronic cough History of edema History of echocardiogram Cardiology follow-up encounter History of stress test Hypertension History of irregular heartbeat Bartholin cyst Home Medications ?Medication ?Instructions ?Recorded ?Last Taken ?Type atenolol 25 mg tablet 25 mg PO QHS PALPITATIONS 01/12/19 22:00 History 12.5 MG duloxetine 30 mg capsule,delayed 30 mg PO DAILY [place] 07/05/13 07/05/13 History release fluticasone propionate 220 2 puff inhalation BID COPD/ ASTHMA 02/03/15 Unknown History mcg/actuation HFA aerosol inhaler omeprazole 40 mg capsule,delayed 20 mg PO QHS PRN PRN GERD 02/03/15 Unknown History release insulin glargine 100 unit/mL (3 120 unit SQ QHS DIABET ES 08/01/18 Unknown History mL) subcutaneous pen insulin aspart U-100 100 unit/mL 30 unit subcut TID Unknown History (3 mL) subcutaneous pen (Novolog FlexPen U-100 Insulin aspart) magnesium 250 mg tablet 250 mg PO DAILY 01/05/25 Unk nown History Allergy/AdvReac Type Severity Reaction Status Date / Time codeine Allergy Nausea Verified 01/05/25 14:00 Environmental Allergies: Allergy ITCHY EYES Verified 01/05/25 14:01 Uncoded (dust mites) hydrocodone bitartrate (From AdvReac Nausea Verified 01/05/25 14:00 Vicodin) latex AdvReac Rash Verified 01/05/25 14:00 nabumetone (From Relafen) AdvReac Upset Verified 01/05/25 14:00 Stomach Surgical History History of carpal tunnel release History of colonoscopy History of plastic surgery History of D&C History of hand surgery History of foot surgery Social History Smoking Status: Never smoker Audit: Pertinent Findings Pertinent Findings EKG Perinent findings: 01/06/2025. Normal sinus rhythm 66 bpm. Normal EKG. Stress test pertinent findings: 11/15/2020. Normal exercise myocardial perfusion stress test. EF 49%. Recommendation Anesthesia Recommendation Anesthesia recommendation: OPTIMIZED for anesthesia
--- NOTE | 2025-01-07 17:02 | PCM.HP.BLA ---
History and Physical Date of Admission: 01/09/25 Expand All Collapse All VIRTUAL VISIT: I have communicated my name and active licensure. The patient's identity and physical location were verified at the time of this visit. 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 pre-operative visit. She is scheduled for Hysteroscopy D&C and polypectomy, for AUB, endometrial polyp on EMB on 01/09/25. Procedure discussed along with risks, benefits and complications. Other alternatives discussed for management. Consent form signed? Yes. PAST MEDICAL HISTORY PAST MEDICAL HISTORY Diagnosis Date ? Abdominal pain, left upper quadrant ? Abdominal pain, unspecified site ? Acquired spondylolisthesis 07/25/2010 ? Acute gastritis without mention of hemorrhage ? Arthritis ? Asthma (HCC) ? Calcaneal spur 10/15/2009 ? COPD (chronic obstructive pulmonary disease) (HCC) ? Cough ? DEPRESSIVE DISORDER NEC 06/15/2007 ? Depressive disorder, not elsewhere classified ? Diabetes mellitus without mention of complication Diabetes mellitus ? Diabetes mellitus without mention of complication Diabetes mellitus type 2 ? Displacement of lumbar intervertebral disc without myelopathy 12/30/2009 ? Esophageal reflux 10/01/2006 ? Esophagitis, unspecified ? Fibromyalgia 07/25/2010 ? Generalized anxiety disorder Anxiety, Generalized ? Hemorrhage of gastrointestinal tract, unspecified ? Hypertension ? Internal hemorrhoids without mention of complication ? Left carpal tunnel syndrome 09/11/2013 ? Lumbago 08/05/2008 ? Migraine 03/02/2009 ? Mixed stress and urge urinary incontinence ? Myalgia and myositis, unspecified ? Obesity, unspecified Obesity ? ZHAO (obstructive sleep apnea) 05/01/2011 uses C-PAP ? PMH - PAST MEDICAL HISTORY OF allergic syndrome; gets allergy shots ? PMH - PAST MEDICAL HISTORY OF bipolar ? Psoriasis and similar disorders ? Sleep apnea ? 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 Tubular adenoma of colon 02/05/2015 Colonoscopy and EGD at [facility] ? Unspecified asthma(493.90) Dr. Grissom saw in the past ? Vitamin D deficiency 11/29/2010 on calcitriol PAST SURGICAL HISTORY PAST SURGICAL HISTORY Procedure Laterality Date ? ABDOMINAL SURGERY HX ? DELIVERY ONLY 2001,2003 ? COLONOSCOPY FLX DX W/COLLJ SPEC WHEN PFRMD 02/05/2015 Colonoscopy out pt [facility] ? D+C 01/27/2021 IUD insertion- BENIGN PATHOLOGY ? EGD TRANSORAL BIOPSY SINGLE/MULTIPLE 05/02/2006 ? ESOPHAGOGASTRODUODENOSCOPY TRANSORAL DIAGNOSTIC 02/05/2015 EGD out pt [facility] ? ESOPHAGOGASTRODUODENOSCOPY TRANSORAL DIAGNOSTIC 01/13/2019 EGD ? HYSTEROSCOPY BX ENDOMETRIUM&/POLYPC W/WO D&C 08/08/2018 AUB, menorrhagia ? INCISE FINGER TENDON SHEATH Left 08/18/2021 Left trigger thumb release ? INCISION EXTENSOR TENDON SHEATH WRIST Right 11/17/2020 Right wrist 1st dorsal compartment release, synovectomy, 2nd dorsal release ? MIRENA IUD 01/27/2021 insertion ? PAST SURGICAL HISTORY OF 07/2005 carpal tunnel right hand ? PAST SURGICAL HISTORY OF 1973 upper lip - plastic surgery. ? PAST SURGICAL HISTORY OF 2010 right plantar fasciectomy ? REVISE MEDIAN N/CARPAL TUNNEL SURG Right 01/18/2023 ? SHX COSMETIC SURGERY ? SIGMOIDOSCOPY FLX DX W/COLLJ SPEC BR/WA IF PFRMD 05/22/2006 CURRENT MEDICATIONS Current Outpatient Medications Medication Sig Dispense Refill ? atenolol (TENORMIN) 25 mg tablet Take 1 tablet by mouth once daily. As directed 90 tablet 3 ? insulin aspart U-100 (NOVOLOG FLEXPEN U-100 INSULIN) 100 unit/mL (3 mL) pen WITH FIRST BITE OF FOOD, 30 UNITS W/BREAKFAST, 30 UNITS W/LUNCH, 30 UNITS W/DINNER; MAY ADJUST WITH SLIDING SCALE GIVEN HIGH BLOOD SUGAR. Max dose 105 units per day 90 mL 3 ? Blood-Glucose Sensor (OxyBand TechnologiesCOM G7 SENSOR) franklin Apply new sensor every ten (10) days. 9 each 3 ? cyclobenzaprine (FLEXERIL) 10 mg tablet Take 0.5-1 tablets by mouth two times a day as needed. 30 tablet 2 ? ibuprofen (MOTRIN) 800 mg tablet Take 1 tablet by mouth every 8 hours as needed for pain. 30 tablet 1 ? blood sugar diagnostic (TRUE METRIX GLUCOSE TEST STRIP) test strip Use with blood glucose test four times a day. Insulin Dep Yes DX E11.65 200 strip 5 ? Blood-Glucose Meter (TRUE METRIX GLUCOSE METER) 1 kit four times daily. DX E11.65 Insulin yes 1 each 0 ? Blood-Glucose Meter,Continuous (DEXCOM G7 BUNDLE SORTER) misc Use to check blood sugar at least four (4) times daily. 1 each 0 ? CPAP Continue APAP @ 13-20 cm of water with humidification. Mask (per patient preference) optional chin strap (if indicated) , filters, tubing, humidifier and lifetime supplies. EPR set at 3. (G47.33) ZHAO (obstructive sleep apnea). Needs new mask at least every 3 months and needs new mask now since current one is leaking. Also needs new headgear now since current one is loose. 1 each 1 ? fluconazole (DIFLUCAN) 150 mg tablet Take by mouth. Take at onset of yeast infection. Repeat after 5 to 7 days if ongoing symptoms. May treat recurrent episodes as needed. 2 tablet 2 ? montelukast (SINGULAIR) 10 mg tablet Take 1 tablet by mouth daily at bedtime. 90 tablet 3 ? flash glucose sensor (FREESTYLE DUSTY 2 SENSOR) kit apply 1 SENSOR to back OF UPPER ARM REMOVE AND REPLACE every 14 days use with DEVICE to MONITOR BLOOD SUGAR 3 Kit 3 ? nystatin (MYCOSTATIN) cream Apply 1 application to affected area two times a day as needed. 60 g 2 ? Cane Use as directed for help with balance 1 Each 0 ? Cholecalciferol, Vitamin D3, 125 mcg (5,000 unit) cap Take 1 capsule by mouth once daily. ? DULoxetine (CYMBALTA) 30 mg capsule Take 1 capsule by mouth once daily. 90 capsule 3 ? omeprazole (PRILOSEC) 20 mg capsule Take 1 capsule by mouth daily before breakfast. 1/2 hr before meal. As directed. 90 capsule 3 ? insulin glargine (LANTUS SOLOSTAR U-100 INSULIN) 100 unit/mL (3 mL) Inject 120 Units subcutaneously daily at bedtime. Please dispense 15 pens (3 boxes at a time). 45 mL 11 ? Insulin [place], Disposable, (BD INSULIN PEN NEEDLE UF) 29 gauge x 1/2 Use 1 Needle For Each Dose 3-4 Times Daily With Novolog Pen For Meals and At Bedtime if Needed 100 Each 11 ? fluticasone (FLOVENT HFA) 220 mcg/actuation inhaler Inhale 2 Puffs as instructed two times a day. 1 Each 11 ? Blood-Glucose Meter (FREESTYLE LITE METER) monitoring kit Check blood sugars as directed for controlled Type 2 DM without complication 1 Each 0 ? albuterol HFA (VENTOLIN HFA) 90 mcg/actuation inhaler Inhale 2 Puffs as instructed every 4 hours as needed for wheezing/shortness of breath. 1 Each 1 ? albuterol (PROVENTIL) 2.5 mg /3 mL (0.083 %) nebulizer solution Use 3 mL via nebulizer every 4 hours as needed for wheezing/shortness of breath. Use over 5-15minutes. 75 mL 1 ? hydroCHLOROthiazide (HYDRODIURIL, ESIDRIX) 25 mg tablet Take 1 tablet by mouth once daily. As needed for swelling from fluid retention 90 tablet 3 ? flash glucose scanning reader (Alt12 AppsSTYLE DUSTY 2 READER) Check glucose 4 times a day or more as directed. Dx: ICD10: E11.40, Z79.4. Insulin: Yes. 1 Each 0 ? omega-3/dha/epa/dpa/fish oil (OMEGA-3 2100 ORAL) Take 1 tablet by mouth twice daily. ? ascorbic acid (VITAMIN C ORAL) Take 3,000 Units by mouth once daily. ? COMPOUNDED PRESCRIPTION CPAP supplies--mask per patient preference, tubing, humidifier as needed. G47.33, Z99.89 ZHAO on CPAP 1 Each 0 ? Incontinence Pad, Liner, Disp pads Change pad 3 to 5 times daily. N39.46 150 Each 5 ? Lancets (FREESTYLE LANCETS) lancets tests sugar 4 to 6 times daily DX:250.02 Insulin dependent (this is corrected RX) 200 Each 11 No current facility-administered medications for this visit. ALLERGIES: Losartan, Vicodin [Hydrocodone-Acetaminophen], Amlodipine, Codeine Antitussive Cough, Latex, Lisinopril, Metformin, and Relafen [Nabumetone] PERSONAL HISTORY: SOCIAL HISTORY Social History Tobacco Use ? Smoking status: Never ? Smokeless tobacco: Never ? Tobacco comments: social smoker in teens Vaping Use ? Vaping status: Never Used Substance Use Topics ? Alcohol use: No ? Drug use: No FAMILY HISTORY: FAMILY HISTORY FAMILY HISTORY Problem Relation Age of Onset ? Diabetes Mother ? Asthma Mother ? Heart Mother ? Brain Cancer Mother ? Cancer Father AT 71 R/T BLADDER ? Heart Father ? Asthma Sister ? other (ulcers) Sister ? Lung Cancer Sister REVIEW OF SYMPTOMS: negative except as noted above PHYSICAL EXAMINATION: VITALS: Last menstrual period 11/28/2020. VIDEO PE: GENERAL: The patient is well nourished, well hydrated in no acute distress. , The patient is oriented to time, place, and person. NECK:full range of motion IMPRESSION: 54yo with AUB, Endometrial polyp on EMB PLAN: Hysteroscopy, D&C, polypectomy with symphion Pt has been counseled on risks/benefits and alternatives of surgery including but not limited to anesthesia, bleeding, infection, uterine perforation with subsequent injury to pelvic structures including bowel, bladder, ureters and vessels. Pt wishes to proceed with surgery at this time. Pre and post op instructions reviwed Needs pre op labs completed - H/o TYPE 2 DM I have reviewed and updated past medical and surgical history, medications and allergies Juanita Hanna MD [facility] on 01/02/2025 Note shared with patient
[2025-01-09] VITALS (7 sets, daily range): BP systolic 116–145; BP diastolic 60–85; PULSE 72–81; RESP 16–20; TEMP 36.3–36.5; O2SAT 97–98; BMI 51.1
--- OUTSIDE RECORDS SUMMARY | 2025-01-09 05:46 | XMS RPT_ITS | CCD ---
Author Organization [facility] Care Team Providers Care Self Pay Specialist Name Role Phone Elissa Aurora D Primary Care Provider Aurora Macdonald MD Primary Care Provider Heath Panchal Unavailable Talampas, Aurora D Primary Care Provider Aurora Macdonald MD Primary Care Provider Heath Panchal Unavailable [phone] Heath Panchal Attending Unavailable Talampas, Aurora Primary Care Unavailable PROVIDER, UNKNOWN Referring Unavailable Heath Panchal Attending Unavailable Talampas, Aurora Primary Care Unavailable PROVIDER, UNKNOWN Referring Unavailable PROVIDER, UNKNOWN Referring Unavailable Talampas, Aurora Primary Care Unavailable Martha Salas Attending Unavailable PROVIDER, UNKNOWN Referring Unavailable Talampas, Aurora Primary Care Unavailable PROVIDER, UNKNOWN Referring Unavailable Heath Panchal Attending Unavailable Talampas, Aurora Primary Care Unavailable PROVIDER, UNKNOWN Referring Unavailable Heath Panchal Attending Unavailable Talampas, Aurora Primary Care Unavailable PROVIDER, UNKNOWN Referring Unavailable Martha Salas Attending Unavailable Talampas, Aurora Primary Care Unavailable Talampas, Aurora Primary Care Unavailable Martha Salas Attending Unavailable PROVIDER, UNKNOWN Referring Unavailable PROVIDER, UNKNOWN Referring Unavailable Talampas, Aurora Primary Care Unavailable Heath Panchal Attending Unavailable PROVIDER, UNKNOWN Referring Unavailable Heath Panchal Attending Unavailable Talampas, Aurora Primary Care Unavailable PROVIDER, UNKNOWN Referring Unavailable Heath Panchal Attending Unavailable Talampas, Aurora Primary Care Unavailable PROVIDER, UNKNOWN Referring Unavailable Heath Panchal Attending Unavailable Talampas, Aurora Primary Care Unavailable PROVIDER, UNKNOWN Referring Unavailable Heath Panchal Attending Unavailable Talampas, Aurora Primary Care Unavailable PROVIDER, UNKNOWN Referring Unavailable Talampas, Aurora Primary Care Unavailable Bridle, Jose Attending Unavailable Talampas, Aurora D Primary Care Provider Bridle, Jose Attending Unavailable Talampas, Aurora Primary Care Unavailable PROVIDER, UNKNOWN Referring Unavailable PROVIDER, UNKNOWN Referring Unavailable Bridle, Jose Attending Unavailable Talampas, Aurora Primary Care Unavailable Talampas, Aurora Primary Care Unavailable ANDREA, NADIRA Attending Unavailable PROVIDER, UNKNOWN Referring Unavailable Talampas, Aurora Primary Care Unavailable PROVIDER, UNKNOWN Referring Unavailable HassingerShell Attending Unavailable Talampas, Aurora Primary Care Unavailable PROVIDER, UNKNOWN Referring Unavailable ANDREA, NADIRA Attending Unavailable Talampas, Aurora Primary Care Unavailable PROVIDER, UNKNOWN Referring Unavailable ANDREA, NADIRA Attending Unavailable PROVIDER, UNKNOWN Referring Unavailable Talampas, Aurora Primary Care Unavailable ANDREA, NADIRA Attending Unavailable PROVIDER, UNKNOWN Referring Unavailable Talampas, Aurora Primary Care Unavailable ANDREA, NADIRA Attending Unavailable PROVIDER, UNKNOWN Referring Unavailable Talampas, Aurora Primary Care Unavailable ANDREA, NADIRA Attending Unavailable Talampas, Aurora Primary Care Unavailable ANDREA, NADIRA Attending Unavailable PROVIDER, UNKNOWN Referring Unavailable Talampas, Aurora Primary Care Unavailable ANDREA, NADIRA Attending Unavailable PROVIDER, UNKNOWN Referring Unavailable Talampas, Aurora Primary Care Unavailable ANDREA, NADIRA Attending Unavailable PROVIDER, UNKNOWN Referring Unavailable Talampas, Aurora Primary Care Unavailable Amelia, Shell Attending Unavailable PROVIDER, UNKNOWN Referring Unavailable HEATH PANCHAL Admitting Unavailable HEATH PANCHAL Attending Unavailable Talampas Aurora AGUILAR Primary Care Provider Heath Panchal Unavailable VINCENZO FONSECA Referring Unavailable TALAMPAS, AURORA D Primary Care Unavailable Talampas Aurora AGUILAR Primary Care Provider Brush CLINICAL SYSTEMS EDUCATOR.SUBSTITUTE NURSE, Chris Unavailable Keke CLINICAL SYSTEMS EDUCATOR.TOOL ROOM MACHINIST, Darlene Unavailable Keke CLINICAL SYSTEMS EDUCATOR.TOOL ROOM MACHINIST, Darlene Unavailable Keke CLINICAL SYSTEMS EDUCATOR.TOOL ROOM MACHINIST, Darlene Unavailable Brush CLINICAL SYSTEMS EDUCATOR.SUBSTITUTE NURSE, Chris Unavailable TALAMPAS, AURORA Referring Unavailable TALAMPAS, AURORA Primary Care Unavailable TALAMPAS, AURORA Referring Unavailable TALAMPAS, AURORA Primary Care Unavailable TALAMPAS, AURORA Attending Unavailable TALAMPAS, AURORA Primary Care Unavailable TALAMPAS, AURORA Attending Unavailable TALAMPAS, AURORA Primary Care Unavailable JUANITA MENDOSA Attending Unavail able TALAMPAS, AURORA Primary Care Unavailable CAREY, MALATHI Attending Unavailable TALAMPAS, AURORA Primary Care Unavailable TALAMPAS, AURORA Primary Care Unavailable CAREY, MALATHI Referring Unavailable CAREY, MALATHI Attending Unavailable TALAMPAS, AURORA Primary Care Unavailable TALAMPAS, AURORA Primary Care Unavailable CAREY, MALATHI Attending Unavailable TALAMPAS, AURORA Primary Care Unavailable CAREY, MALATHI Referring Unavailable TALAMPAS, AURORA Primary Care Unavailable CAREY, MALATHI Referring Unavailable CAREY, MALATHI Attending Unavailable TALAMPAS, AURORA Attending Unavailable TALAMPAS, AURORA Primary Care Unavailable Allergies Allergy Classification Reported Allergen(s) Allergy Type Date of Onset Reaction(s) Facility (20 sources) Acetaminophen / HYDROcodone; Translations: [HYDROCODONE-ACET AMINOPHEN] Drug Allergy 9 Nausea And Vomiting, GI Upset [facility] (20 sources) amLODIPine; Translations: [AMLODIPINE] Drug Allergy [address] [facility] Work Phone: (20 sources) Latex; Translations: [LATEX] Propensity to adverse reactions [address] [facility] Work Phone: (20 sources) Lisinopril; Translations: [LISINOPRIL] Drug Allergy [address] [facility] Work Phone: (20 sources) Losartan; Translations: [LOSARTAN] Drug Allergy [address] [facility] Work Phone: (20 sources) metFORMIN; Translations: [METFORMIN] Drug Allergy GI Upset [facility] Work Phone: (20 sources) nabumetone; Translations: [NABUMETONE] Drug Allergy [address] [facility] Work Phone: (20 sources) Codeine Antitussive Cough; Translations: [CODEINE ANTITUSSIVE COUGH] Drug Intolerance [address] [facility] Work Phone: Medications Current Medications Medication Drug Class(es) Dates Sig (Normalized) Sig (Original) albuterol 0.83 mg/ml inhalation solution (20 sources) beta2-Adrenergic Agonist Start: 06-07-2022 take 2.5 mg by inhalation every four hours as needed for chronic obstructive pulmonary disease and chronic obstructive pulmonary disease albuterol (PROVENTIL) 2.5 mg /3 mL (0.083 %) nebulizer solution Indications: Chronic obstructive pulmonary disease, unspecified COPD type (HCC) Use 3 mL via nebulizer every 4 hours as needed for wheezing/shortness of breath. Use over 5-15minutes. 75 mL 1 06/07/2022 Active Start: 08-09-2020 End: 06-07-2022 take 2 puff(s) by inhalation every four hours as needed for wheezing albuterol HFA (VENTOLIN HFA) 90 mcg/actuation inhaler Indications: Chronic obstructive pulmonary disease, unspecified COPD type (HCC) Inhale 2 Puffs as instructed every 4 hours as needed for wheezing/shortness of breath. 1 Each 1 06/07/2022 Active Start: 08-09-2020 End: 06-07-2022 take 2 puff(s) by inhalation every four hours as needed for wheezing albuterol HFA (VENTOLIN HFA) 90 mcg/actuation inhaler Indications: Chronic obstructive pulmonary disease, unspecified COPD type (HCC) Inhale 2 Puffs as instructed every 4 hours as needed for Wheezing/Shortness of Breath. 8 g 1 08/09/2020 06/07/2022 Discontinued Comment on above: Inhale 2 Puffs as in structed every 4 hours as needed for Wheezing/Shortness of Breath. Use 3 mL via nebuliz er every 4 hours as needed for wheezing/shortness of breath. Use over 5-15minutes. Ascorbic Acid (20 sources) Vitamin C take 3000 [IU] by mouth once daily ascorbic acid (VITAMIN C ORAL) Take 3,000 Units by mouth once daily. Active take 1 tablet by mouth once tank y ascorbic acid (VITAMIN C) 500 MG tablet Take 500 mg by mouth daily 0 Active take 1 tablet by mouth once tank y ascorbic acid (VITAMIN C) 500 MG tablet Take 500 mg by mouth daily 0 Active ascorbic acid (V ITAMIN C) 500 MG tablet Take 3,000 Units by mouth 2 times daily 0 Active take 3000 [IU] by mouth once merle ly ascorbic acid (VITAMIN C ORAL) Take 3,000 Units by mouth once daily. 0 Active Comment on above: Take 3,000 Units by mouth once daily. atenolol 25 mg oral tablet (20 sources) beta-Adrenergic Sara Start: 12-30-2024 take 1 tablet by mouth once daily atenolol (TENORMIN) 25 mg tablet Indications: Palpitations , Essential hypertension , Tachycardia Take 1 tablet by mouth once daily. As directed 90 tablet 3 12/30/2024 Active Start: 06-07-2022 End: 12-28-2024 take 1 tablet by mouth once daily atenolol (TENORMIN) 25 mg tablet Indications: Palpitations , Essential hypertension , Tachycardia Take 1 tablet by mouth once daily. As directed 90 tablet 3 01/11/2024 12/28/2024 Discontinued Start: 04-19-2022 End: 06-05-2022 take 1 tablet by mouth once daily atenolol (TENORMIN) 25 mg tablet Indications: Palpitations , Essential hypertension , Tachycardia Take 1 tablet by mouth once daily. As directed 90 tablet 3 04/19/2022 06/05/2022 Discontinued Start: 01-31-2021 take 1 tablet by sangita th once daily atenolol (TENORMIN) 25 MG tablet Indications: heart palpitations Take 25 mg by mouth nightly Indications: heart palpitations 0 01/31/2021 Active Comment on above: Take 1 tablet by sangita th once daily. As directed take 1 tablet by sangita th once daily as directed Blood-Glucose Meter (FREESTYLE LITE METER) monitoring kit (20 sources) Start: 08-28-2023 Blood-Glucose Meter (FREESTYLE LITE METER) monitoring kit Indications: Controlled type 2 diabetes mellitus without complication, with long-term current use of insulin ([facility]) Check blood sugars as directed for controlled Type 2 DM without complication 1 Each 08/28/2023 Active Start: 08-28-2023 Blood-Glucose Meter (FREESTYLE LITE METER) monitoring kit Indications: Controlled type 2 diabetes mellitus without complication, with long-term current use of insulin ([facility]) Check blood sugars as directed for controlled Type 2 DM without complication 1 Each 0 08/28/2023 Active Start: 10-06-2019 End: 08-28-2023 Blood-Glucose Meter (FREESTY LE LITE METER) monitoring kit Indications: Controlled type 2 diabetes mellitus without complication, with long-term current use of insulin (HCC) Check blood sugars as directed for controlled Type 2 DM without complication 1 Each 10/06/2019 08/28/2023 Discontinued Start: 10-06-2019 End: 08-28-2023 Blood-Glucose Meter (FREESTY LE LITE METER) monitoring kit Indications: Controlled type 2 diabetes mellitus without complication, with long-term current use of insulin (HCC) Check blood sugars as directed for controlled Type 2 DM without complication 1 Each 0 10/06/2019 08/28/2023 Discontinued Start: 10-06-2019 Blood-Glucose Meter (FREESTYLE LITE METER) monitoring kit Indications: Controlled type 2 diabetes mellitus without complication, with long-term current use of insulin ([facility]) Check blood sugars as directed for controlled Type 2 DM without complication 1 Each 0 10/06/2019 Active Comment on above: Check blood sugars a s directed for controlled Type 2 DM without complication Blood-Glucose Meter (TRUE METRIX GLUCOSE METER) (13 sources) Start: 11-04-2024 Blood-Glucose Meter (TRUE METRIX GLUCOSE METER) 1 kit four times daily. DX E11.65 Insulin yes 1 each 11/04/2024 Active Blood-Glucose Meter monitoring kit (20 sources) Start: 08-04-2022 End: 08-05-2022 Blood-Glucose Meter monitoring kit Glucose Meter of Choice - Kit - Dx: Type 2 DM - Uncontrolled E11.65 1 Each 0 08/04/2022 08/05/2022 Active Start: 03-08-2017 End: 08-28-2023 Blood-Glucose Meter monitori ng kit Glucose Meter of Choice (covered by [employer] insurance) - Kit - Dx: Type 2 DM - Uncontrolled E11.65, Insulin Yes 1 Each 03/08/2017 08/28/2023 Discontinued Start: 03-08-2017 End: 08-28-2023 Blood-Glucose Meter monitori ng kit Glucose Meter of Choice (covered by [employer] insurance) - Kit - Dx: Type 2 DM - Uncontrolled E11.65, Insulin Yes 1 Each 0 03/08/2017 08/28/2023 Discontinued Start: 03-08-2017 Blood-Glucose Meter monitoring kit Glucose Meter of Choice (covered by [employer] insurance) - Kit - Dx: Type 2 DM - Uncontrolled E11.65, Insulin Yes 1 Each 0 03/08/2017 Active Comment on above: Glucose Meter of Cho ice (covered by [employer] insurance) - Kit - Dx: Type 2 DM - Uncontrolled E11.65, Insulin Yes Glucose Meter of [place] ice - Kit - Dx: Type 2 DM - Uncontrolled E11.65 Blood-Glucose Meter,Continuous (DEXCOM G7 BINDERY MACHINE TENDER) misc (20 sources) Start: 11-03-2024 Blood-Glucose Meter,Continuous (DEXCOM G7 BINDERY MACHINE TENDER) misc Indications: Controlled type 2 diabetes mellitus without complication, with long-term current use of insulin (HCC) Use to check blood sugar at least four (4) times daily. 1 each 11/03/2024 Active Start: 01-11-2024 End: 11-03-2024 Blood-Glucose Meter,Continuo us (DEXCOM G7 BINDERY MACHINE TENDER) misc Indications: Controlled type 2 diabetes mellitus without complication, with long-term current use of insulin (HCC) Use to check blood sugar at least four (4) times daily. 1 Each 01/11/2024 11/03/2024 Discontinued Start: 01-11-2024 Blood-Glucose Meter,Continuous (DEXCOM G7 BINDERY MACHINE TENDER) misc Indications: Controlled type 2 diabetes mellitus without complication, with long-term current use of insulin (HCC) Use to check blood sugar at least four (4) times daily. 1 Each 01/11/2024 Active Start: 01-11-2024 Blood-Glucose Meter,Continuous (DEXCOM G7 BINDERY MACHINE TENDER) misc Indications: Controlled type 2 diabetes mellitus without complication, with long-term current use of insulin (HCC) Use to check blood sugar at least four (4) times daily. 1 Each 0 01/11/2024 Active Blood-Glucose Sensor (DEXCOM G7 SENSOR) franklin (20 sources) Start: 11-07-2024 Blood-Glucose Sensor (DEXCOM G7 SENSOR) franklin Indications: Controlled type 2 diabetes mellitus without complication, with long-term current use of insulin (HCC) Apply new sensor every ten (10) days. 9 each 3 11/07/2024 Active Start: 01-11-2024 End: 11-07-2024 Blood-Glucose Sensor (DEXCOM G7 SENSOR) franklin Indications: Controlled type 2 diabetes mellitus without complication, with long-term current use of insulin (HCC) Apply new sensor every ten (10) days. 9 Each 01/11/2024 11/07/2024 Discontinued Start: 01-11-2024 Blood-Glucose Sensor (DEXCOM G7 SENSOR) franklin Indications: Controlled type 2 diabetes mellitus without complication, with long-term current use of insulin (HCC) Apply new sensor every ten (10) days. 9 Each 3 01/11/2024 Active 60 actuat budesonide 0.16 mg/actuat / formoterol fumarate 0.0045 mg/actuat metered dose inhaler (15 sources) Corticosteroid, beta2-Adrenergic Agonist Start: 04-01-2021 take 2 puff(s) by mouth twice daily SYMBICORT 160-4.5 MCG/ACT AERO inhale 2 puffs by mouth and INTO THE LUNGS twice a day as directed 0 04/01/2021 Active Start: 03-31-2021 End: 09-20-2021 take 2 puff(s) by inhalation twice daily budesonide-formoterol (SYMBICORT) 160-4.5 mcg/actuation inhaler Indications: Chronic obstructive pulmonary disease, unspecified COPD type (HCC) Inhale 2 Puffs as instructed twice daily. 1 Each 5 03/31/2021 09/20/2021 Discontinued Start: 03-31-2021 take 2 puff(s) by in halation twice daily budesonide-formoterol (SYMBICORT) 160-4.5 mcg/actuation inhaler Indications: Chronic obstructive pulmonary disease, unspecified COPD type (HCC) Inhale 2 Puffs as instructed twice daily. 1 Each 5 03/31/2021 Active Comment on above: Inhale 2 Puffs as in structed twice daily. Cane (20 sources) Start: 01-11-2024 Cane Indications: Displacement of lumbar intervertebral disc without myelopathy , Spondylolysis, lumbosacral , Lumbago , Primary osteoarthritis of right knee , Left foot pain Use as directed for help with balance 1 Each 01/11/2024 Active Start: 01-11-2024 Cane Indicatio ns: Displacement of lumbar intervertebral disc without myelopathy , Spondylolysis, lumbosacral , Lumbago , Primary osteoarthritis of right knee , Left foot pain Use as directed for help with balance 1 Each 0 01/11/2024 Active cholecalciferol 0.125 mg oral capsule (20 sources) Vitamin D Start: 01-11-2024 take 1 capsule by mouth once daily Cholecalciferol, Vitamin D3, 125 mcg (5,000 unit) cap Take 1 capsule by mouth once daily. 01/11/2024 Active Start: 04-19-2022 End: 01-11-2024 Cholecalciferol, Vitamin D3, 25 mcg (1,000 unit) cap Takes 1600 to 2000 units daily with supplement OTC 04/19/2022 01/11/2024 Discontinued Start: 12-13-2020 Cholecalcifero l, Vitamin D3, 25 mcg (1,000 unit) cap Takes 1600 to 2000 units daily with supplement OTC 0 12/13/2020 Active Start: 12-13-2020 vitamin D 25 M CG (1000 UT) CAPS Take 1,000 Units by mouth daily Vitamin D deficiency 0 12/13/2020 Active Cholecalciferol (VITAMIN D) 125 MCG (5000 UT) CAPS Take 5,000 Units by mouth nightly 0 Active Comment on above: Takes 1600 to 2000 u nits daily with supplement OTC COMPOUNDED PRESCRIPTION (20 sources) Start: 05-15-2017 COMPOUNDED PRESCRIPTION CPAP supplies--mask per patient preference, tubing, humidifier as needed. G47.33, Z99.89 ZHAO on CPAP 1 Each 05/15/2017 Active Start: 05-15-2017 COMPOUNDED PRE SCRIPTION CPAP supplies--mask per patient preference, tubing, humidifier as needed. G47.33, Z99.89 ZHAO on CPAP 1 Each 0 05/15/2017 Active Start: 03-17-2015 End: 06-05-2024 COMPOUNDED PRESCRIPTION Bila teral compression Knee Hi 20-30 mm. ICD 10; 459.81; 782.3 1 Each 0 03/17/2015 06/05/2024 Discontinued Start: 03-17-2015 COMPOUNDED PRE SCRIPTION Bilateral compression Knee Hi 20-30 mm. ICD 10; 459.81; 782.3 1 Each 0 03/17/2015 Active Comment on above: Bilateral compressio n Knee Hi 20-30 mm. ICD 10; 459.81; 782.3 CPAP supplies--mask per patient preference, tubing, humidifier as needed. G47.33, Z99.89 ZHAO on CPAP CPAP (20 sources) Start: 09-12-2024 CPAP Indications: ZHAO (obstructive sleep apnea) Continue APAP @ 13-20 cm of water with humidification. Mask (per patient preference) optional chin strap (if indicated) , filters, tubing, humidifier and lifetime supplies. EPR set at 3. (G47.33) ZHAO (obstructive sleep apnea). Needs new mask at least every 3 months and needs new mask now since current one is leaking. Also needs new headgear now since current one is loose. 1 each 1 09/12/2024 Active Start: 04-27-2023 End: 09-12-2024 CPAP Indications: ZHAO (obstr uctive sleep apnea) ContinueAPAP @ 13-20 cm of water with humidification. Mask (per patient preference) optional chin strap (if indicated) , filters, tubing, humidifier and lifetime supplies. EPR set at 3. (G47.33) ZHAO (obstructive sleep apnea). Needs new mask at least every 3 months and needs new mask now since current one is leaking. Also needs new headgear now since current one is loose. 1 Each 1 04/27/2023 09/12/2024 Discontinued Start: 04-27-2023 CPAP Indicatio ns: ZHAO (obstructive sleep apnea) ContinueAPAP @ 13-20 cm of water with humidification. Mask (per patient preference) optional chin strap (if indicated) , filters, tubing, humidifier and lifetime supplies. EPR set at 3. (G47.33) ZHAO (obstructive sleep apnea). Needs new mask at least every 3 months and needs new mask now since current one is leaking. Also needs new headgear now since current one is loose. 1 Each 1 04/27/2023 Active Start: 10-03-2022 End: 04-27-2023 CPAP Indications: ZHAO (obstr uctive sleep apnea) APAP @ 13-20 cm of water with humidification. Mask (per patient preference) optional chin strap (if indicated) , filters, tubing, humidifier and lifetime supplies. EPR set at 3. (G47.33) ZHAO (obstructive sleep apnea) 1 Each 1 10/03/2022 04/27/2023 Discontinued Start: 10-03-2022 CPAP Indicatio ns: ZHAO (obstructive sleep apnea) APAP @ 13-20 cm of water with humidification. Mask (per patient preference) optional chin strap (if indicated) , filters, tubing, humidifier and lifetime supplies. EPR set at 3. (G47.33) ZHAO (obstructive sleep apnea) 1 Each 1 10/03/2022 Active Start: 09-14-2022 CPAP Indicatio ns: ZHAO (obstructive sleep apnea) CPAP @ 13 cm of water with humidification. Mask (per patient preference) optional chin strap (if indicated) , filters, tubing, humidifier and lifetime supplies. EPR set at 3. (G47.33) ZHAO (obstructive sleep apnea) 1 Each 1 09/14/2022 Active Start: 08-23-2017 End: 09-14-2022 CPAP Indications: ZHAO (obstr uctive sleep apnea) CPAP @ 13 cm of water with humidification. Mask (per patient preference) optional chin strap (if indicated) , filters, tubing, humidifier and lifetime supplies. EPR set at 3. (G47.33) ZHAO (obstructive sleep apnea) 1 Device 0 08/23/2017 09/14/2022 Discontinued Start: 08-23-2017 CPAP Indicatio ns: ZHAO (obstructive sleep apnea) CPAP @ 13 cm of water with humidification. Mask (per patient preference) optional chin strap (if indicated) , filters, tubing, humidifier and lifetime supplies. EPR set at 3. (G47.33) ZHAO (obstructive sleep apnea) 1 Device 0 08/23/2017 Active Comment on above: CPAP @ 13 cm of wate r with humidification. Mask (per patient preference) optional chin strap (if indicated) , filters, tubing, humidifier and lifetime supplies. EPR set at 3. (G47.33) ZHAO (obstructive sleep apnea) APAP @ 13-20 cm of w ater with humidification. Mask (per patient preference) optional chin strap (if indicated) , filters, tubing, humidifier and lifetime supplies. EPR set at 3. (G47.33) ZHAO (obstructive sleep apnea) ContinueAPAP @ 13-20 cm of water with humidification. Mask (per patient preference) optional chin strap (if indicated) , filters, tubing, humidifier and lifetime supplies. EPR set at 3. (G47.33) ZHAO (obstructive sleep apnea). Needs new mask at least every 3 months and needs new mask now since current one is leaking. Also needs new headgear now since current one is loose. CPAP Machine MISC (3 sources) CPAP Machine MIS C Indications: Obstructive Sleep Apnea Syndrome 13 cm by Does not apply route at bedtime Indications: Obstructive Sleep Apnea Syndrome 0 Active cyclobenzaprine hydrochloride 10 mg oral tablet (20 sources) Muscle Relaxant Start: 019 End: 025 take 5-10 mg by mouth every twelve hours as needed cyclobenzaprine (FLEXERIL) 10 mg tablet Take 0.5-1 tablets by mouth two times a day as needed. 30 tablet 2 11/07/2024 Active Comment on above: Take 0.5-1 tablets b y mouth twice daily as needed. DULoxetine 30 mg delayed release oral capsule (20 sources) Serotonin and Norepinephrine Reuptake Inhibitor Start: 022 End: take 1 capsule by mouth once daily DULoxetine (CYMBALTA) 30 mg capsule Take 1 capsule by mouth once daily. 90 capsule 3 01/11/2024 Active Start: 12-13-2020 take 1 capsule by mo ut once daily DULoxetine (CYMBALTA) 30 MG extended release capsule Take 30 mg by mouth daily 0 12/13/2020 Active Comment on above: Take 1 capsule by mo ut once daily. flash glucose scanning reader (FREESTYLE DUSTY 2 READER) (20 sources) Start: 05-26-2021 flash glucose scanning reader (FREESTYLE DUSTY 2 READER) Indications: Type 2 diabetes mellitus with diabetic neuropathy, with long-term current use of insulin ([facility]) Check glucose 4 times a day or more as directed. Dx: ICD10: E11.40, Z79.4. Insulin: Yes. 1 Each 05/26/2021 Active Start: 05-26-2021 flash glucose scanning reader (FREESTYLE DUSTY 2 READER) Indications: Type 2 diabetes mellitus with diabetic neuropathy, with long-term current use of insulin (HCC) Check glucose 4 times a day or more as directed. Dx: ICD10: E11.40, Z79.4. Insulin: Yes. 1 Each 0 05/26/2021 Active Comment on above: Check glucose 4 time s a day or more as directed. Dx: ICD10: E11.40, Z79.4. Insulin: Yes. flash glucose sensor (FREESTYLE DUSTY 2 SENSOR) kit (20 sources) Start: 08-21-2024 flash glucose sensor (FREESTYLE DUSTY 2 SENSOR) kit Indications: Type 2 diabetes mellitus with diabetic neuropathy, with long-term current use of insulin ([facility]) apply 1 SENSOR to back OF UPPER ARM REMOVE AND REPLACE every 14 days use with DEVICE to MONITOR BLOOD SUGAR 3 Kit 3 08/21/2024 Active Start: 12-28-2023 End: 08-21-2024 flash glucose sensor (FREEST YLE DUSTY 2 SENSOR) kit Indications: Type 2 diabetes mellitus with diabetic neuropathy, with long-term current use of insulin ([facility]) apply 1 SENSOR to back OF UPPER ARM REMOVE AND REPLACE every 14 days use with DEVICE to MONITOR BLOOD SUGAR 3 Kit 3 12/28/2023 08/21/2024 Discontinued Start: 12-28-2023 flash glucose sensor (FREESTYLE DUSTY 2 SENSOR) kit Indications: Type 2 diabetes mellitus with diabetic neuropathy, with long-term current use of insulin ([facility]) apply 1 SENSOR to back OF UPPER ARM REMOVE AND REPLACE every 14 days use with DEVICE to MONITOR BLOOD SUGAR 3 Kit 3 12/28/2023 Active Start: 07-02-2023 End: 12-27-2023 flash glucose sensor (FREEST YLE DUSTY 2 SENSOR) kit Indications: Type 2 diabetes mellitus with diabetic neuropathy, with long-term current use of insulin ([facility]) apply 1 SENSOR to back OF UPPER ARM REMOVE AND REPLACE every 14 days use with DEVICE to MONITOR BLOOD SUGAR 3 Kit 3 07/02/2023 12/27/2023 Discontinued Start: 07-02-2023 flash glucose sensor (FREESTYLE DUSTY 2 SENSOR) kit Indications: Type 2 diabetes mellitus with diabetic neuropathy, with long-term current use of insulin ([facility]) apply 1 SENSOR to back OF UPPER ARM REMOVE AND REPLACE every 14 days use with DEVICE to MONITOR BLOOD SUGAR 3 Kit 3 07/02/2023 Active Start: 01-01-2023 End: 07-02-2023 flash glucose sensor (FREEST YLE DUSTY 2 SENSOR) kit Indications: Type 2 diabetes mellitus with diabetic neuropathy, with long-term current use of insulin ([facility]) Check glucose 4 times a day or more as directed. Dx: ICD10: E11.40, Z79.4. Insulin: Yes. 3 Each 3 01/01/2023 07/02/2023 Discontinued Start: 01-01-2023 flash glucose sensor (FREESTYLE DUSTY 2 SENSOR) kit Indications: Type 2 diabetes mellitus with diabetic neuropathy, with long-term current use of insulin ([facility]) Check glucose 4 times a day or more as directed. Dx: ICD10: E11.40, Z79.4. Insulin: Yes. 3 Each 3 01/01/2023 Active Start: 07-18-2022 End: 01-01-2023 flash glucose sensor (FREEST YLE DUSTY 2 SENSOR) kit Indications: Type 2 diabetes mellitus with diabetic neuropathy, with long-term current use of insulin ([facility]) Check glucose 4 times a day or more as directed. Dx: ICD10: E11.40, Z79.4. Insulin: Yes. 3 Each 3 07/18/2022 01/01/2023 Discontinued Start: 07-18-2022 flash glucose sensor (FREESTYLE DUSTY 2 SENSOR) kit Indications: Type 2 diabetes mellitus with diabetic neuropathy, with long-term current use of insulin ([facility]) Check glucose 4 times a day or more as directed. Dx: ICD10: E11.40, Z79.4. Insulin: Yes. 3 Each 3 07/18/2022 Active Start: 01-23-2022 flash glucose sensor (FREESTYLE DUSTY 2 SENSOR) kit Indications: Type 2 diabetes mellitus with diabetic neuropathy, with long-term current use of insulin ([facility]) Check glucose 4 times a day or more as directed. Dx: ICD10: E11.40, Z79.4. Insulin: Yes. 3 Each 3 01/23/2022 Active Start: 05-26-2021 End: 01-23-2022 flash glucose sensor (FREEST YLE DUSTY 2 SENSOR) kit Indications: Type 2 diabetes mellitus with diabetic neuropathy, with long-term current use of insulin ([facility]) Check glucose 4 times a day or more as directed. Dx: ICD10: E11.40, Z79.4. Insulin: Yes. 3 Each 3 05/26/2021 01/23/2022 Discontinued Start: 05-26-2021 flash glucose sensor (FREESTYLE DUSTY 2 SENSOR) kit Indications: Type 2 diabetes mellitus with diabetic neuropathy, with long-term current use of insulin ([facility]) Check glucose 4 times a day or more as directed. Dx: ICD10: E11.40, Z79.4. Insulin: Yes. 3 Each 3 05/26/2021 Active Comment on above: Check glucose 4 time s a day or more as directed. Dx: ICD10: E11.40, Z79.4. Insulin: Yes. apply 1 SENSOR to ba ck OF UPPER ARM REMOVE AND REPLACE every 14 days use with DEVICE to MONITOR BLOOD SUGAR fluconazole 150 mg oral tablet (20 sources) Azole Antifungal Start: 05-04-20 End: 09-13-19 fluconazole (DIFLUCAN) 150 mg tablet Take by mouth. Take at onset of yeast infection. Repeat after 5 to 7 days if ongoing symptoms. May treat recurrent episodes as needed. 2 tablet 2 09/12/2024 Active Comment on above: Take by mouth. Take at onset of yeast infection. Repeat after 5 to 7 days if ongoing symptoms. May treat recurrent episodes as needed. 120 actuat fluticasone propionate 0.22 mg/actuat metered dose inhaler (20 sources) Corticosteroid Start: 11-22-19 take 2 puff(s) by inhalation twice daily fluticasone (FLOVENT HFA) 220 mcg/actuation inhaler Indications: Chronic obstructive pulmonary disease, unspecified COPD type (HCC) Inhale 2 Puffs as instructed two times a day. 1 Each 11/22/2023 Active Start: 08-09-2020 End: 06-07-2022 take 2 puff(s) by inhalation twice daily fluticasone (FLOVENT HFA) 220 mcg/actuation inhaler Indications: Chronic obstructive pulmonary disease, unspecified COPD type (HCC) Inhale 2 Puffs as instructed twice daily. 1 Inhaler 08/09/2020 06/07/2022 Discontinued take 1 puff(s) by in halation twice daily fluticasone (FLOVENT HFA) 220 MCG/ACT inhaler Inhale 1 puff into the lungs 2 times daily 0 Active Comment on above: Inhale 2 Puffs as in structed twice daily. hydroCHLOROthiazide 25 mg oral tablet (20 sources) Thiazide Diuretic Start: 2021 take 1 tablet by mouth once daily as needed for edema hydroCHLOROthiazide (HYDRODIURIL, ESIDRIX) 25 mg tablet Take 1 tablet by mouth once daily. As needed for swelling from fluid retention 90 tablet 3 04/19/2022 Active Start: 09-16-2019 take 1 tablet by sangita th once daily as needed for edema hydroCHLOROthiazide (HYDRODIURIL, ESIDRIX) 25 mg tablet Take 1 tablet by mouth once daily. As needed for swelling from fluid retention 90 tablet 3 09/16/2019 Active Comment on above: Take 1 tablet by sangita th once daily. As needed for swelling from fluid retention ibuprofen 800 mg oral tablet (20 sources) Nonsteroidal Anti-inflammatory Drug Start: 09-05-2024 End: 11-07-2024 take 1 tablet by mouth every eight hours as needed ibuprofen (MOTRIN) 800 mg tablet Take 1 tablet by mouth every 8 hours as needed for pain. 30 tablet 1 11/07/2024 Active Start: 06-07-2022 End: 11-06-2022 take 1 tablet by mouth every eight hours as needed ibuprofen (MOTRIN) 800 mg tablet Take 1 tablet by mouth every 8 hours as needed for pain. 30 tablet 1 06/07/2022 11/06/2022 Discontinued (Changing Therapy/Dosage Form) Start: 04-19-2022 End: 06-05-2022 take 1 tablet by mouth every eight hours as needed ibuprofen (MOTRIN) 800 mg tablet Take 1 tablet by mouth every 8 hours as needed for pain. 30 tablet 1 04/19/2022 06/05/2022 Discontinued Start: 02-16-2021 take 1 tablet by sangita th every eight hours as needed ibuprofen (MOTRIN) 800 mg tablet Take 1 tablet by mouth every 8 hours as needed for pain. 30 tablet 1 02/16/2021 Active Comment on above: Take 1 tablet by sangita th every 8 hours as needed for pain. Incontinence Pad, Liner, Disp pads (20 sources) Start: 11-22-2015 Incontinence Pad, Liner, Disp pads Indications: Urinary incontinence, mixed Change pad 3 to 5 times daily. N39.46 150 Each 5 11/22/2015 Active Comment on above: Change pad 3 to 5 ti mes daily. N39.46 3 ml insulin aspart, human 100 unt/ml pen injector (20 sources) Insulin Analog Start: 01-11-2024 End: 11-25-2024 insulin aspart U-100 (NOVOLOG FLEXPEN U-100 INSULIN) 100 unit/mL (3 mL) pen WITH FIRST BITE OF FOOD, 30 UNITS W/BREAKFAST, 30 UNITS W/LUNCH, 30 UNITS W/DINNER; MAY ADJUST WITH SLIDING SCALE GIVEN HIGH BLOOD SUGAR. Max dose 105 units per day 90 mL 3 11/25/2024 Active Start: 03-29-2023 End: 01-11-2024 insulin aspart U-100 (NOVOLO G FLEXPEN U-100 INSULIN) 100 unit/mL (3 mL) WITH FIRST BITE OF FOOD, 30 UNITS W/BREAKFAST, 30 UNITS W/LUNCH, 30 UNITS W/DINNER; MAY ADJUST WITH SLIDING SCALE GIVEN HIGH BLOOD SUGAR 90 mL 3 03/30/2023 01/11/2024 Discontinued Start: 06-07-2022 End: 03-27-2023 insulin aspart U-100 (NOVOLO G FLEXPEN U-100 INSULIN) 100 unit/mL (3 mL) WITH FIRST BITE OF FOOD, 30 UNITS W/BREAKFAST, 30 UNITS W/LUNCH, 30 UNITS W/DINNER; MAY ADJUST WITH SLIDING SCALE GIVEN HIGH BLOOD SUGAR 90 mL 3 06/07/2022 03/27/2023 Discontinued Start: 01-31-2021 End: 06-05-2022 insulin aspart U-100 (NOVOLO G FLEXPEN U-100 INSULIN) 100 unit/mL (3 mL) WITH FIRST BITE OF FOOD, 30 UNITS W/BREAKFAST, 30 UNITS W/LUNCH, 30 UNITS W/DINNER; MAY ADJUST WITH SLIDING SCALE GIVEN HIGH BLOOD SUGAR 90 mL 3 01/31/2021 06/05/2022 Discontinued Start: 01-31-2021 insulin aspart (NOVOLOG) 100 UNIT/ML injection pen Indications: Diabetes Mellitus 30 Units 3 times daily Indications: Diabetes Plus sliding scale DM 0 01/31/2021 Active Comment on above: WITH FIRST BITE OF F OOD, 30 UNITS W/BREAKFAST, 30 UNITS W/LUNCH, 30 UNITS W/DINNER; MAY ADJUST WITH SLIDING SCALE GIVEN HIGH BLOOD SUGAR 3 ml insulin glargine 100 unt/ml pen injector (20 sources) Insulin Analog Start: 04-19-2022 End: 04-19-2023 insulin glargine (LANTUS SOLOSTAR U-100 INSULIN) 100 unit/mL (3 mL) Inject 120 Units subcutaneously daily at bedtime. Please dispense 15 pens (3 boxes at a time). 45 mL 11 04/19/2022 Active Start: 04-19-2021 End: 05-06-2024 insulin glargine (LANTUS ANJUM OSTAR U-100 INSULIN) 100 unit/mL (3 mL) Inject 120 Units subcutaneously daily at bedtime. Please dispense 15 pens (3 boxes at a time). 45 mL 11 01/11/2024 Active Start: 04-19-2021 End: 04-19-2022 insulin glargine (LANTUS ANJUM OSTAR) 100 UNIT/ML injection pen Indications: Diabetes Mellitus Inject 120 Units into the skin nightly Indications: Diabetes DM 0 04/19/2021 04/19/2022 Active Comment on above: Inject 120 Units sub cutaneously daily at bedtime. Please dispense 15 pens (3 boxes at a time). montelukast 10 mg oral tablet (20 sources) Leukotriene Receptor Antagonist Start: 04-19-20 End: 09-13-19 take 1 tablet by mouth once daily at bedtime montelukast (SINGULAIR) 10 mg tablet Take 1 tablet by mouth daily at bedtime. 90 tablet 3 09/12/2024 Active Start: 09-16-2019 take 1 tablet by sangita th once daily at bedtime montelukast (SINGULAIR) 10 mg tablet Take 1 tablet by mouth daily at bedtime. 90 tablet 3 09/16/2019 Active Comment on above: Take 1 tablet by sangita th daily at bedtime. nystatin [id number] unt/ml topical cream (20 sources) Polyene Antifungal Start: 04-19-2022 End: 05-23-2024 nystatin (MYCOSTATIN) cream Apply 1 application to affected area two times a day as needed. 60 g 2 05/23/2024 Active Start: 09-14-2020 nystatin (MYCO STATIN) 002238 UNIT/GM cream Apply topically 2 times daily as needed 0 09/14/2020 Active Start: 09-14-2020 nystatin (MYCO STATIN) cream Apply 1 application to affected area twice daily as needed. 60 g 2 09/14/2020 Active Comment on above: Apply 1 application to affected area twice daily as needed. [place]-3 Fatty Acids (OMEGA-3 CF PO) (12 sources) take 1 tablet by mouth twice daily [place]-3 Fatty Acids (OMEGA-3 CF PO) Take 1 tablet by mouth 2 times daily 0 Active take 1 tablet by mouth once tank y [place]-3 Fatty Acids (OMEGA-3 CF PO) Take 1 tablet by mouth daily 0 Active omega-3/dha/epa/dpa/fish oil (OMEGA-3 2100 ORAL) (20 sources) omega-3/dha/epa/ dpa/fish oil (OMEGA-3 2100 ORAL) Take 1 tablet by mouth twice daily. Active omega-3/dha/epa/ dpa/fish oil (OMEGA-3 2099 ORAL) Take 1 tablet by mouth twice daily. 0 Active Comment on above: Take 1 tablet by sangita twice daily. omeprazole 20 mg delayed release oral capsule (20 sources) Proton Pump Inhibitor Start: 0 End: 4 take 1 capsule by mouth once daily before breakfast omeprazole (PRILOSEC) 20 mg capsule Take 1 capsule by mouth daily before breakfast. 1/2 hr before meal. As directed. 90 capsule 3 01/11/2024 Active Comment on above: Take 1 capsule by mo [facility] daily before breakfast. 1/2 hr before meal. As directed. ursodiol 300 mg oral capsule (3 sources) Bile Acid Start: 2 End: 2 take 1 capsule by mouth twice daily ursodiol (ACTIGALL) 300 MG capsule Take 1 capsule by mouth 2 times daily 180 capsule 0 02/01/2022 05/02/2022 Active Completed/Discontinued Medications Medication Drug Class(es) Dates Sig (Normalized) Sig (Original) azithromycin 250 mg oral tablet (1 source) Macrolide Antimicrobial Start: 06-07-2022 End: 06-12-2022 azithromycin (ZITHROMAX Z-GIGI) 250 mg tablet Take 2 tablets day one, then, 1 tablet daily until gone. 6 tablet 0 06/07/2022 06/12/2022 Comment on above: Take 2 tablets day o ne, then, 1 tablet daily until gone. betamethasone 3 mg/ml / betamethasone acetate 3 mg/ml injectable suspension (2 sources) Corticosteroid Start: 11-06-2022 End: 11-06-2022 betamethasone acetate-betamethas one sodium phosphate 6 mg injection (CELESTONE) Start: 09-08-2022 End: 09-08-2022 betamethasone acetate-betame thasone sodium phosphate 3 mg injection (CELESTONE) budesonide 0.25 mg/ml inhalation suspension (20 sources) Corticosteroid Start: 06-07-2022 End: 01-11-2024 budesonide (PULMICORT) 0.5 mg/2 mL nebulizer solution Use 2 mL via nebulizer once daily. 30 mL 5 06/07/2022 01/11/2024 Discontinued Comment on above: Use 2 mL via nebuliz er once daily. Cane Misc [place] (20 sources) Start: 08-04-2010 End: 01-11-2024 Cane Misc [place] Indications: Displacement of lumbar intervertebral disc without myelopathy , Spondylolysis, lumbosacral , Lumbago 1 Each. Diagnosis: 724.2 Back pain 1 Device 0 08/04/2010 01/11/2024 Discontinued Start: 08-04-2010 Cane Misc [place] Indications: Displacement of lumbar intervertebral disc without myelopathy , Spondylolysis, lumbosacral , Lumbago 1 Each. Diagnosis: 724.2 Back pain 1 Device 0 08/04/2010 Active Comment on above: 1 Each. Diagnosis: 7 24.2 Back pain celecoxib 200 mg oral capsule (10 sources) Nonsteroidal Anti-inflammatory Drug Start: 4 End: 4 take 1 capsule by mouth twice daily celecoxib (CELEBREX) 200 mg capsule Take 1 capsule by mouth two times a day. 60 capsule 0 06/05/2023 01/11/2024 Discontinued Comment on above: Take 1 capsule by mo [facility] two times a day. Compression Knee Highs (20 sources) Start: 5 End: 5 Compression Knee Highs Indications: Venous stasis , Bilateral edema of lower extremity KNEE HIGH COMPRESSION STOCKINGS 30-40 MM. DX: (I87.8/459.81) Venous stasis (R60.0782.3) Bilateral edema of lower extremity 2 Each 0 03/11/2015 06/05/2024 Discontinued Start: 03-11-2015 Compression Kn ee Highs Indications: Venous stasis , Bilateral edema of lower extremity KNEE HIGH COMPRESSION STOCKINGS 30-40 MM. DX: (I87.8/459.81) Venous stasis (R60.0782.3) Bilateral edema of lower extremity 2 Each 0 03/11/2015 Active Comment on above: KNEE HIGH COMPRESSIO N STOCKINGS 30-40 MM. DX: (I87.8/459.81) Venous stasis (R60.0782.3) Bilateral edema of lower extremity diclofenac sodium 0.01 mg/mg topical gel (20 sources) Nonsteroidal Anti-inflammatory Drug Start: End: apply 2 g topically four times daily diclofenac (VOLTAREN) 1 % topical gel Indications: De Quervain's tenosynovitis, right Apply 2 g to affected area four times daily. 50 g 1 09/16/2020 11/06/2022 Discontinued (Changing Therapy/Dosage Form) Comment on above: Apply 2 g to affecte d area four times daily. ergocalciferol 1.25 mg oral capsule (20 sources) Provitamin D2 Compound Start: End: take 1 capsule by mouth every week ergocalciferol 50,000 unit capsule (VITAMIN D2, DRISDOL) Take 1 capsule by mouth one time a week. 4 capsule 12 02/20/2020 01/11/2024 Discontinued Comment on above: Take 1 capsule by mo [facility] one time a week. ferrous sulfate 325 mg oral tablet (3 sources) Start: End: take 1 tablet by mouth once daily at breakfast FEROSUL 325 mg (65 mg iron) tablet Indications: Abnormal uterine bleeding (AUB) take 1 tablet by mouth once daily WITH BREAKFAST 30 tablet 5 03/28/2021 09/20/2021 Discontinued (Discontinued by another Health Care Provider) Comment on above: [facility] WITH [facility]FAST flaxseed oil (OMEGA 3 ORAL) (16 sources) End: flaxseed oil (OMEGA 3 ORAL) Take by mouth. 09/12/2024 Discontinued flaxseed oil (OM EGA 3 ORAL) Take by mouth. Active flaxseed oil (OM EGA 3 ORAL) Take by mouth. 0 Active fluticasone / salmeterol (20 sources) Corticosteroid, beta2-Adrenergic Agonist Start: 06-07-2022 End: 06-07-2022 take 2 puff(s) by inhalation twice daily fluticasone-salmeterol HFA (ADVAIR HFA) 230-21 mcg/actuation inhaler Indications: Mild persistent asthma with acute exacerbation Inhale 2 Puffs as instructed twice daily. 1 Each 11 06/07/2022 06/07/2022 Discontinued (Clinical Decision) Start: 09-20-2021 End: 06-07-2022 take 2 puff(s) by inhalation twice daily fluticasone-salmeterol HFA (ADVAIR HFA) 230-21 mcg/actuation inhaler Indications: Mild persistent asthma without complication Inhale 2 Puffs as instructed twice daily. 1 Inhaler 5 09/20/2021 06/07/2022 Discontinued Start: 09-20-2021 take 2 puff(s) by in halation twice daily fluticasone-salmeterol HFA (ADVAIR HFA) 230-21 mcg/actuation inhaler Indications: Mild persistent asthma without complication Inhale 2 Puffs as instructed twice daily. 1 Inhaler 5 09/20/2021 Active Comment on above: Inhale 2 Puffs as in structed twice daily. 10 ml lidocaine hydrochloride 10 mg/ml injection (2 sources) Antiarrhythmic, Amide Local Anesthetic Start: 11-06-2022 End: 11-06-2022 lidocaine (PF) 10 mg/mL (1 %) 4 mL injection (XYLOCAINE) Start: 09-08-2022 End: 09-08-2022 lidocaine (PF) 10 mg/mL (1 % ) 0.5 mL injection (XYLOCAINE) mecobalamin (10 sources) End: 06-05-2024 mecobalamin (B12 ACTIVE ORAL ) Take by mouth. 06/05/2024 Discontinued mecobalamin (B12 ACTIVE ORAL) Take by mouth. Active mecobalamin (B12 ACTIVE ORAL) Take by mouth. 0 Active meloxicam 15 mg oral tablet (17 sources) Nonsteroidal Anti-inflammatory Drug Start: 11-06-2022 End: 06-05-2023 take 1 tablet by mouth once daily meloxicam (MOBIC) 15 mg tablet Take 1 tablet by mouth once daily. 30 tablet 1 11/06/2022 06/05/2023 Discontinued (Changing Therapy/Dosage Form) Comment on above: Take 1 tablet by [facility] once daily. mupirocin 0.02 mg/mg topical ointment (20 sources) RNA Synthetase Inhibitor Antibacterial Start: 09-17-2018 End: 11-17-2024 mupirocin (BACTROBAN) 2 % ointment Apply 1 application to affected area three times daily. Location: torso wounds as directed till healed 1 Tube 09/17/2018 11/07/2024 Discontinued Comment on above: Apply 1 application to affected area three times daily. Location: torso wounds as directed till healed norethindrone acetate 5 mg oral tablet (20 sources) Start: 01-17-2021 End: 01-11-2024 norethindrone (AYGESTIN) 5 mg tablet Indications: Abnormal uterine bleeding (AUB) Take 1 tablet by mouth as directed. 1 tablet 3 times daily until bleeding stops then twice daily for 2 days then 1 tablet daily for 2 days. 60 tablet 01/17/2021 01/11/2024 Discontinued Comment on above: Take 1 tablet by sangita as directed. 1 tablet 3 times daily until bleeding stops then twice daily for 2 days then 1 tablet daily for 2 days. oseltamivir 75 mg oral capsule (3 sources) Neuraminidase Inhibitor Start: 06-01-2022 End: 06-06-2022 take 1 capsule by mouth twice daily oseltamivir (TAMIFLU) 75 mg capsule Take 1 capsule by mouth twice daily for 5 days. 10 capsule 0 06/01/2022 06/06/2022 Comment on above: Take 1 capsule by mo [facility] twice daily for 5 days. oxyCODONE hydrochloride 10 mg oral tablet (20 sources) Opioid Agonist Start: 01-03-2021 End: 06-07-2022 take 1 tablet by mouth twice daily oxyCODONE IR (ROXICODONE) 10 mg tab Indications: Displacement of lumbar intervertebral disc without myelopathy , Spondylolysis, lumbosacral , Coccygeal pain Take 1 tablet by mouth twice daily for 30 days. May take one pill extra per day as needed for exacerbation of pain (not daily). Do not start before January 22, 2022. 60 tablet 0 01/22/2022 06/07/2022 Discontinued Comment on above: Take 1 tablet by sangita twice daily for 30 days. May take one pill extra per day as needed for exacerbation of pain (not daily). Do not start before January 03, 2021. Take 1 tablet by sangita th twice daily for 30 days. May take one pill extra per day as needed for exacerbation of pain (not daily). Do not start before April 05, 2021. Take 1 tablet by sangita th twice daily for 30 days. May take one pill extra per day as needed for exacerbation of pain (not daily). Do not start before July 02, 2021. Take 1 tablet by sangita th twice daily for 30 days. May take one pill extra per day as needed for exacerbation of pain (not daily). Do not start before June 02, 2021. Take 1 tablet by sangita th twice daily for 30 days. May take one pill extra per day as needed for exacerbation of pain (not daily). Do not start before August 01, 2021. Take 1 tablet by sangita th twice daily for 30 days. May take one pill extra per day as needed for exacerbation of pain (not daily). Do not start before September 01, 2021. Take 1 tablet by sangita th twice daily for 30 days. May take one pill extra per day as needed for exacerbation of pain (not daily). Do not start before October 01, 2021. Take 1 tablet by sangita th twice daily for 30 days. May take one pill extra per day as needed for exacerbation of pain (not daily). Do not start before October 31, 2021. Take 1 tablet by sangita th twice daily for 30 days. May take one pill extra per day as needed for exacerbation of pain (not daily). Do not start before November 30, 2021. Take 1 tablet by sangita th twice daily for 30 days. May take one pill extra per day as needed for exacerbation of pain (not daily). Take 1 tablet by sangita th twice daily for 30 days. May take one pill extra per day as needed for exacerbation of pain (not daily). Do not start before January 22, 2022. perflutren lipid microspheres 1.3 mL in NaCl (PF) 0.9% 10 mL injection (DEFINITY) (20 sources) Start: 02-09-2023 End: 05-10-2024 perflutren lipid microspheres 1.3 mL in NaCl (PF) 0.9% 10 mL injection (DEFINITY) Start: 09-13-2020 End: 12-13-2021 perflutren lipid microsphere s 1.3 mL in NaCl (PF) 0.9% 10 mL injection (DEFINITY) 0.25 mg, 0.5 mg dose 1.5 ml semaglutide 1.34 mg/ml pen injector (20 sources) Start: 08-22-2022 End: 09-22-2022 semaglutide (OZEMPIC) 0.25 m g or 0.5 mg(2 mg/1.5 mL) pen Indications: Type 2 diabetes mellitus with diabetic neuropathy, with long-term current use of insulin ([facility]) Inject 0.5 mg subcutaneously one time a week. 4 Each 2 08/22/2022 09/22/2022 Discontinued Start: 06-28-2021 End: 10-04-2021 Semaglutide,0.25 or 0.5MG/DO S, (OZEMPIC, 0.25 OR 0.5 MG/DOSE,) 2 MG/1.5ML SOPN Inject 0.25 mg into the skin once a week 0 06/28/2021 Active Semaglutide,0.25 or 0.5MG/DOS, (OZEMPIC, 0.25 OR 0.5 MG/DOSE,) 2 MG/1.5ML SOPN Inject into the skin 0 Active Comment on above: Inject 0.25 mg subcu taneously one time a week. Inject 0.5 mg subcut aneously one time a week. semaglutide (OZEMPIC) 0.25 mg or 0.5 mg (2 mg/3 mL) pen (10 sources) Start: 023 inject 0.5 mg by subcutaneous injection every week semaglutide (OZEMPIC) 0.25 mg or 0.5 mg (2 mg/3 mL) pen Indications: Type 2 diabetes mellitus with diabetic neuropathy, with long-term current use of insulin ([facility]) Inject 0.5 mg subcutaneously one time a week. 2 Each 1 09/22/2022 Active Comment on above: Inject 0.5 mg subcut aneously one time a week. semaglutide, weight loss, (WEGOVY) 0.25 mg/0.5 mL pen injector (20 sources) Start: 023 End: 024 semaglutide, weight loss, (WEGOVY) 0.25 mg/0.5 mL pen injector Indications: Type 2 diabetes mellitus with diabetic neuropathy, with long-term current use of insulin ([facility]) , Essential hypertension , Class 3 severe obesity due to excess calories with serious comorbidity and body mass index (BMI) of 50.0 to 59.9 in adult ([facility]) , ZHAO (obstructive sleep apnea) Inject 0.5 mL subcutaneously one time a week. 4 Each 1 01/29/2023 01/11/2024 Discontinued (Not on Formulary) Start: 01-29-2023 semaglutide, w eight loss, (WEGOVY) 0.25 mg/0.5 mL pen injector Indications: Type 2 diabetes mellitus with diabetic neuropathy, with long-term current use of insulin ([facility]) , Essential hypertension , Class 3 severe obesity due to excess calories with serious comorbidity and body mass index (BMI) of 50.0 to 59.9 in adult ([facility]) , ZHAO (obstructive sleep apnea) Inject 0.5 mL subcutaneously one time a week. 4 Each 1 01/29/2023 Active Comment on above: Inject 0.5 mL subcut aneously one time a week. 125 ml sodium chloride 9 mg/ml prefilled syringe (20 sources) Start: 02-09-2023 End: 05-10-2024 sodium chloride 0.9 % (flush) 10 mL (BD POSIFLUSH) Start: 09-13-2020 End: 12-13-2021 sodium chloride 0.9 % (flush ) 10 mL (BD POSIFLUSH) tiZANidine 4 mg oral tablet (10 sources) Central alpha-2 Adrenergic Agonist Start: 08-28-2023 End: 06-05-2024 take 1 tablet by mouth every eight hours as needed tiZANidine (ZANAFLEX) 4 mg tablet Take 1 tablet by mouth every 8 hours as needed (muscle spasms). 30 tablet 1 08/28/2023 06/05/2024 Discontinued valsartan 40 mg oral tablet (20 sources) Angiotensin 2 Receptor Sara Start: 10-04-2020 End: 06-07-2022 take 1 tablet by mouth once daily valsartan (DIOVAN) 40 mg tablet Take 1 tablet by mouth once daily. 30 tablet 3 10/04/2020 06/07/2022 Discontinued Comment on above: Take 1 tablet by sangita th once daily. Problems Active Problems Problem Classification Problem Date Documented Da te Episodic/Chronic Abdominal hernia (13 sources) Hiatal hernia; Translations: [Diaphragmatic hernia without obstruction or gangrene] Onset: 2 09-19-2021 Episodic Adjustment disorders (7 sources) Grief finding; Translations: [Adjustment disorder with depressed mood] Onset: 2 Chronic Anxiety disorders (20 sources) Generalized anxiety disorder; Translations: [Generalized anxiety disorder] Onset: 5 04-28-2005 Chronic Asthma (20 sources) Allergic asthma; Translations: [Unspecified asthma, uncomplicated] Onset: 5 03-15-2005 Chronic Cardiac dysrhythmias (20 sources) Nonsustained ventricular tachycardia ; Translations: [Ventricular tachycardia] Onset: 0 03-22-2020 Chronic Chronic obstructive pulmonary disease and bronchiectasis (20 sources) Chronic obstructive lung disease; Translations: [Chronic obstructive pulmonary disease, unspecified] Onset: 0 05-18-2021 Chronic Contraceptive and procreative management (1 source) Encounter for removal of intrauterine contraceptive device; Translations: [Encounter for IUD removal] Onset: 5 Episodic Diabetes mellitus with complications (20 sources) Type 2 diabetes mellitus; Translations: [Type 2 diabetes mellitus with diabetic neuropathy, unspecified] Onset: 1 Chronic Diabetes mellitus without complication (20 sources) Insulin treated type 2 diabetes mellitus; Translations: [Type 2 diabetes mellitus without complications] Onset: 7 11-11-2020 Chronic Esophageal disorders (20 sources) Gastroesophageal reflux disease; Translations: [Gastro-esophageal reflux disease without esophagitis] Onset: 7 05-18-2021 Chronic Esophageal disorders (20 sources) Esophagitis; Translations: [Esophagitis, unspecified] 05-02-2006 Episodic Essential hypertension (20 sources) Hypertensive disorder; Translations: [Essential (primary) hypertension] Onset: 7 05-18-2021 Chronic Gastritis and duodenitis (20 sources) Acute gastritis; Translations: [Acute gastritis without bleeding] 05-02-2006 Episodic Gastrointestinal hemorrhage (20 sources) Gastrointestinal hemorrhage; Translations: [Gastrointestinal hemorrhage, unspecified] 05-22-2006 Episodic Genitourinary symptoms and ill-defined conditions (20 sources) Mixed urinary incontinence; Translations: [Mixed incontinence] 08-22-2012 Chronic Headache; including migraine (20 sources) Migraine; Translations: [Migraine, unspecified, not intractable, without status migrainosus] Onset: 9 03-02-2009 Chronic Hemorrhoids (20 sources) Internal hemorrhoids; Translations: [Other hemorrhoids] 05-22-2006 Episodic Immunizations and screening for infectious disease (2 sources) Vaccination needed; Translations: [Encounter for immunization] Onset: 5 04-27-2023 Episodic Menopausal disorders (1 source) Menopausal and female climacteric states; Translations: [Menopausal symptoms] Onset: 5 Chronic Miscellaneous mental health disorders (2 sources) Eating disorder, unspecified; Translations: [Eating disorder, unspecified] Onset: 2 Chronic Mood disorders (20 sources) Depressive disorder; Translations: [Other specified depressive episodes] Onset: 8 06-15-2007 Chronic Nausea and vomiting (1 source) Nausea; Translations: [Nausea] Episodic Nutritional deficiencies (20 sources) Vitamin D deficiency; Translations: [Vitamin D deficiency, unspecified] Onset: 1 Chronic Nutritional deficiencies (2 sources) Ascorbic acid deficiency; Translations: [Ascorbic acid deficiency] Onset: 2 Episodic Osteoarthritis (5 sources) Arthritis of wrist; Translations: [Primary osteoarthritis, unspecified wrist] Onset: 4 Chronic Other aftercare (9 sources) Patient encounter status; Translations: [Other senior care (current) drug therapy] Episodic Other aftercare (2 sources) Long-term current use of drug therapy; Translations: [Other assistant terminal manager (current) drug therapy] 01-11-2024 Episodic Other and unspecified benign neoplasm (10 sources) Polyp of duodenum; Translations: [Benign neoplasm of duodenum] 09-19-2021 Episodic Other connective tissue disease (1 source) Pain in left thumb; Translations: [Pain in left finger(s)] Episodic Other connective tissue disease (1 source) Trigger thumb of left hand; Translations: [Trigger thumb, left thumb] Episodic Other connective tissue disease (1 source) Pain in right thumb; Translations: [Pain in right finger(s)] Episodic Other connective tissue disease (2 sources) Trigger thumb of right hand; Translations: [Trigger thumb, right thumb] Episodic Other connective tissue disease (1 source) Calcific tendinitis of right shoulder; Translations: [Calcific tendinitis of right shoulder] Episodic Other connective tissue disease (2 sources) Pain in right foot; Translations: [Pain in right foot] 08-28-2023 Episodic Other connective tissue disease (2 sources) Pain in left foot; Translations: [Pain in left foot] 01-11-2024 Episodic Other connective tissue disease (1 source) Plantar fasciitis of left foot; Translations: [Plantar fascial fibromatosis] 06-05-2024 Episodic Other connective tissue disease (1 source) Spasm; Translations: [Other muscle spasm] 06-05-2024 Episodic Other connective tissue disease (1 source) Plantar fasciitis; Translations: [Plantar fascial fibromatosis] 09-12-2024 Episodic Other diseases of bladder and urethra (1 source) Spasm of bladder; Translations: [Other specified disorders of bladder] 07-13-2023 Chronic Other female genital disorders (3 sources) Abnormal uterine bleeding; Translations: [Abnormal uterine and vaginal bleeding, unspecified] 10-31-2024 Chronic Other female genital disorders (3 sources) Abnormal uterine bleeding due to endometrial polyp; Translations: [Abnormal uterine and vaginal bleeding, unspecified] 11-18-2024 Chronic Other female genital disorders (2 sources) Abnormal uterine and vaginal bleeding, unspecified; Translations: [Abnormal uterine bleeding due to endometrial polyp] Onset: 5 Chronic Other female genital disorders (1 source) Abnormal uterine bleeding due to endometrial polyp 11-18-2024 Episodic Other female genital disorders (2 sources) Polyp of corpus uteri; Translations: [Polyp of corpus uteri] Onset: 5 01-02-2025 Episodic Other gastrointestinal disorders (2 sources) Heartburn; Translations: [Heartburn] Onset: 2 Episodic Other gastrointestinal disorders (2 sources) Drug-induced constipation; Translations: [Drug induced constipation] 05-09-2023 Episodic Other liver diseases (20 sources) Steatosis of liver; Translations: [Fatty (change of) liver, not elsewhere classified] Onset: 2 Chronic Other liver diseases (2 sources) Fatty (change of) liver, not elsewhere classified; Translations: [Fatty (change of) liver, not elsewhere classified] Onset: 2 Chronic Other liver diseases (1 source) Aspartate aminotransferase serum level raised; Translations: [Elevated AST (SGOT)] Episodic Other lower respiratory disease (1 source) Asthma; Translations: [Eosinophilic asthma] Episodic Other lower respiratory disease (3 sources) Dyspnea; Translations: [Shortness of breath] 02-09-2023 Episodic Other lower respiratory disease (1 source) Chronic cough; Translations: [Chronic cough] 05-09-2023 Episodic Other nervous system disorders (20 sources) Carpal tunnel syndrome of left wrist; Translations: [Carpal tunnel syndrome, left upper limb] Onset: 4 09-11-2013 Chronic Other nervous system disorders (2 sources) Other chronic pain; Translations: [Other chronic pain] Onset: 2 Chronic Other non-traumatic joint disorders (1 source) Disorder of shoulder; Translations: [Other specified joint disorders, unspecified shoulder] Episodic Other non-traumatic joint disorders (1 source) Pain in right shoulder; Translations: [Pain in joint, shoulder region] 11-06-2022 Episodic Other non-traumatic joint disorders (1 source) Pain in right hip; Translations: [Pain in right hip] Onset: 4 Episodic Other non-traumatic joint disorders (1 source) Multiple joint pain; Translations: [Pain in unspecified joint] 07-13-2023 Episodic Other non-traumatic joint disorders (1 source) Hip pain; Translations: [Pain in left hip] 07-13-2023 Episodic Other non-traumatic joint disorders (1 source) Pain in right hip joint; Translations: [Pain in right hip] 06-05-2023 Episodic Other nutritional; endocrine; and metabolic disorders (14 sources) Morbid obesity; Translations: [Morbid (severe) obesity due to excess calories] Onset: 1 05-13-2021 Chronic Other nutritional; endocrine; and metabolic disorders (20 sources) Severe obesity; Translations: [Morbid (severe) obesity due to excess calories] Chronic Other nutritional; endocrine; and metabolic disorders (8 sources) Morbid (severe) obesity due to excess calories; Translations: [Morbid (severe) obesity due to excess calories] Onset: 2 Chronic Other nutritional; endocrine; and metabolic disorders (6 sources) Body mass index (BMI) 50.0-59.9, adult; Translations: [Body mass index [BMI] 50.0-59.9, adult] Onset: 2 Chronic Other screening for suspected conditions (not mental disorders or infectious disease) (5 sources) Mammography abnormal; Translations: [Other abnormal and inconclusive findings on diagnostic imaging of breast] Onset: 4 08-28-2023 Episodic Other upper respiratory disease (20 sources) Allergic rhinitis; Translations: [Allergic rhinitis, unspecified] Onset: 5 04-26-2005 Chronic Residual codes; unclassified (20 sources) Obstructive sleep apnea syndrome; Translations: [Obstructive sleep apnea (adult) (pediatric)] Onset: 1 05-18-2021 Chronic Residual codes; unclassified (5 sources) Obstructive sleep apnea (adult) (pediatric); Translations: [Obstructive sleep apnea (adult) (pediatric)] Onset: 2 Chronic Residual codes; unclassified (2 sources) Dependence on other enabling machines and devices; Translations: [Dependence on other enabling machines and devices] Onset: 2 Chronic Spondylosis; intervertebral disc disorders; other back problems (20 sources) Displacement of lumbar intervertebral disc without myelopathy; Translations: [Other intervertebral disc displacement, lumbar region] Onset: 0 Chronic Unclassified (1 source) Telemedicine Onset: 5 Unclassified (1 source) Class 3 severe obesity due to excess calories with serious comorbidity and body mass index (BMI) of 50.0 to 59.9 in adult (HCC); Translations: [Class 3 severe obesity due to excess calories with serious comorbidity and body mass index (BMI) of 50.0 to 59.9 in adult (HCC)] Onset: 2 Past or Other Problems Problem Classification Problem Date Documented Da te Episodic/Chronic Abdominal pain (20 sources) Left upper quadrant pain; Translations: [Left upper quadrant pain] Onset: 10-05-2021 Resolved: 07-30-2018 Episodic Cardiac dysrhythmias (20 sources) Palpitations; Translations: [Palpitations] Onset: 03-15-2020 03-15-2020 Episodic Genitourinary symptoms and ill-defined conditions (20 sources) Albuminuria ; Translations: [Proteinuria, unspecified] Onset: 02-08-2015 05-30-2021 Episodic Other acquired deformities (20 sources) Spondylolysis; Translations: [Spondylolysis, lumbosacral region] Onset: 07-25-2010 Episodic Other acquired deformities (20 sources) Acquired spondylolisthesis; Translations: [Spondylolisthesis, site unspecified] Onset: 07-25-2010 07-25-2010 Episodic Other acquired deformities (20 sources) Spondylolysis, lumbosacral region; Translations: [Acquired spondylolisthesis] Onset: 07-25-2010 07-25-2010 Episodic Other aftercare (6 sources) residential (current) use of insulin; Translations: [oysterman (current) use of insulin] Onset: 11-11-2020 Episodic Other aftercare (1 source) Other assistant terminal manager (current) drug therapy; Translations: [Encounter for long-term current use of medication] Onset: 09-10-2024 Episodic Other and unspecified benign neoplasm (20 sources) Tubular adenoma of colon; Translations: [Benign neoplasm of colon, unspecified] Onset: 02-05-2015 05-30-2021 Episodic Other connective tissue disease (20 sources) Calcaneal spur; Translations: [Calcaneal spur, unspecified foot] Onset: 10-15-2009 10-15-2009 Episodic Other connective tissue disease (20 sources) Fibromyalgia; Translations: [Fibromyalgia] Onset: 07-25-2010 07-25-2010 Episodic Other connective tissue disease (1 source) Plantar fascial fibromatosis; Translations: [Plantar fasciitis] Onset: 09-12-2024 Episodic Other connective tissue disease (1 source) Pain in left foot; Translations: [Left foot pain] Onset: 01-11-2024 Episodic Other disorders of stomach and duodenum (2 sources) Disease of stomach and duodenum, unspecified; Translations: [Disease of stomach and duodenum, unspecified] Onset: 09-19-2021 Episodic Other disorders of stomach and duodenum (2 sources) Functional dyspepsia; Translations: [Functional dyspepsia] Onset: 09-19-2021 Episodic Other liver diseases (20 sources) Hepatosplenomegaly; Translations: [Hepatomegaly with splenomegaly, not elsewhere classified] Onset: 01-28-2022 Episodic Other liver diseases (2 sources) Hepatomegaly with splenomegaly, not elsewhere classified; Translations: [Hepatomegaly with splenomegaly, not elsewhere classified] Onset: 10-05-2021 Episodic Other non-traumatic joint disorders (7 sources) Pain in right knee; Translations: [Pain in joint, lower leg] Onset: 06-05-2023 07-13-2023 Episodic Spondylosis; intervertebral disc disorders; other back problems (20 sources) Backache; Translations: [Dorsalgia, unspecified] Onset: 08-05-2008 05-18-2021 Episodic Unclassified (20 sources) Type 2 diabetes mellitus without complication; Translations: [Uncontrolled type 2 diabetes mellitus without complication, with long-term current use of insulin] Onset: 08-11-2014 Resolved: 04-27-2023 11-14-2016 Results Test Name Value Interpretation Reference Range Facility HISTORY PHYSICALon HISTORY PHYSICAL HNO ID: [id number] Author: JUANITA MENDOSA MD Service: ? Author Type: Physician Type: H&P Filed: 01/02/2025 14:17 Note Text: VIRTUAL VISIT: I have communicated my name and active licensure. The patient's identity and physical location were verified at the time of this visit. Either the patient or their legal merchandiser retail representative has been informed of the risks and benefits of -- and alternatives to -- treatment through a remote evaluation and consents to proceed with the evaluation remotely Visit was conducted via [employer] Patient Location: Patient Home or Place of Residence [id number] Pre-Op History and Physical HPI: The patient is a 54 year old female presenting for discussion regarding AUB and surgical intervention. pre-operative visit. She is scheduled for Hysteroscopy DANDC and polypectomy, for AUB, endometrial polyp on EMB on 01/09/25. Procedure discussed along with risks, benefits and complications. Other alternatives discussed for management. Consent form signed? Yes. PAST MEDICAL HISTORY Diagnosis Date Abdominal pain, left upper quadrant Abdominal pain, unspecified site Acquired spondylolisthesis 07/25/2010 Acute gastritis without mention of hemorrhage Arthritis Asthma (HCC) Calcaneal spur 10/15/2009 COPD (chronic obstructive pulmonary disease) ([facility]) Cough DEPRESSIVE DISORDER NEC 06/15/2007 Depressive disorder, not elsewhere classified Diabetes mellitus without mention of complication Diabetes mellitus Diabetes mellitus without mention of complication Diabetes mellitus type 2 Displacement of lumbar intervertebral disc without myelopathy 12/30/2009 Esophageal reflux 10/01/2006 Esophagitis, unspecified Fibromyalgia 07/25/2010 Generalized anxiety disorder Anxiety, Generalized Hemorrhage of gastrointestinal tract, unspecified Hypertension Internal hemorrhoids without mention of complication Left carpal tunnel syndrome 09/11/2013 Lumbago 08/05/2008 Migraine 03/02/2009 Mixed stress and urge urinary incontinence Myalgia and myositis, unspecified Obesity, unspecified Obesity ZHAO (obstructive sleep apnea) 05/01/2011 uses C-PAP PMH - PAST MEDICAL HISTORY OF allergic syndrome; gets allergy shots PMH - PAST MEDICAL HISTORY OF bipolar Psoriasis and similar disorders Sleep apnea Spondylolysis, 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 Grissom saw in the past Vitamin D deficiency 11/29/2010 on calcitriol PAST SURGICAL HISTORY Procedure Laterality Date ABDOMINAL SURGERY HX DELIVERY ONLY 2001,2003 COLONOSCOPY FLX DX W/COLLJ SPEC WHEN PFRMD 02/05/2015 Colonoscopy out pt [facility] D+C 01/27/2021 IUD insertion- BENIGN PATHOLOGY EGD TRANSORAL BIOPSY SINGLE/MULTIPLE 05/02/2006 ESOPHAGOGASTRODUODENOSCO PY TRANSORAL DIAGNOSTIC 02/05/2015 EGD out pt [facility] ESOPHAGOGASTRODUODENOSCO PY TRANSORAL DIAGNOSTIC 01/13/2019 EGD HYSTEROSCOPY BX ENDOMETRIUMAND/POLYPC W/WO DANDC 08/08/2018 AUB, menorrhagia INCISE FINGER TENDON SHEATH Left 08/18/2021 Left trigger thumb release INCISION EXTENSOR TENDON SHEATH WRIST Right 11/17/2020 Right wrist 1st dorsal compartment release, synovectomy, 2nd dorsal release MIRENA IUD 01/27/2021 insertion PAST SURGICAL HISTORY OF 07/2005 carpal tunnel right hand PAST SURGICAL HISTORY OF 1973 upper lip - plastic surgery. PAST SURGICAL HISTORY OF 2010 right plantar fasciectomy REVISE MEDIAN N/CARPAL TUNNEL SURG Right 01/18/2023 [facility] COSMETIC SURGERY SIGMOIDOSCOPY FLX DX W/COLLJ SPEC BR/WA IF PFRMD 05/22/2006 Current Outpatient Medications Medication Sig Dispense Refill atenolol (TENORMIN) 25 mg tablet Take 1 tablet by mouth once daily. As directed 90 tablet 3 insulin aspart U-100 (NOVOLOG FLEXPEN U-100 INSULIN) 100 unit/mL (3 mL) pen WITH FIRST BITE OF FOOD, 30 UNITS W/BREAKFAST, 30 UNITS W/LUNCH, 30 UNITS W/DINNER; MAY ADJUST WITH SLIDING SCALE GIVEN HIGH BLOOD SUGAR. Max dose 105 units per day 90 mL 3 Blood-Glucose Sensor (DEXCOM G7 SENSOR) franklin Apply new sensor every ten (10) days. 9 each 3 cyclobenzaprine (FLEXERIL) 10 mg tablet Take 0.5-1 tablets by mouth two times a day as needed. 30 tablet 2 ibuprofen (MOTRIN) 800 mg tablet Take 1 tablet by mouth every 8 hours as needed for pain. 30 tablet 1 blood sugar diagnostic (TRUE METRIX GLUCOSE TEST STRIP) test strip Use with blood glucose test four times a day. Insulin Dep Yes DX E11.65 200 strip 5 Blood-Glucose Meter (TRUE METRIX GLUCOSE METER) 1 kit four times daily. DX E11.65 Insulin yes 1 each 0 Blood-Glucose Meter,Continuous (DEXCOM G7 BINDERY MACHINE TENDER) misc Use to check blood sugar at least four (4) times daily. 1 each 0 CPAP Continue APAP @ 13-20 cm of water with humidification. Mask (per patient preference) optional chin strap (if indicated) , filters, tubing, humidifier and lifetime supplies. EPR set at 3. (G47.33) ZHAO (obstructive s (more content not included)... Normal [facility] 12-22-2024 CNPN Telephone (INTMWS) -------- MALATHI ZAMBRANO ([id number]) 1970 F NFR Date Time Provider Department 12/22/24 [facility] MACDONALD INTMWS During your visit today, we recorded the following information about you: Anna Smith RN 12/22/2024 1:04 PM Signed Patient reports she submitted a urine sample with her other lab orders on 09/10/24 but does not see that it was processed. Pt asking if provider can place an urinalysis order so she can complete this soon, to see her kidney function. Please call patient with update. RIK Waters Krystle, RN 12/23/2024 4:05 PM Signed Patient calls to check on status of request below. Also asking for a letter to excuse her from [facility]. Reports in the past has received a letter stating she is not medically able to serve d/t Asthma and COPD. She reports she recently had foot surgery and is still not able to drive as well. Reports daughter transports her and asking if orders for urine specimen and letter could be available tomorrow. Notified that I was not certain how quickly provider would get to request. Patient asked to red flag the message. Please review and advise, RIK Batista Liza D, MD 12/23/2024 5:06 PM Signed Filed urine studies Printed jury letter (standard [facility] letter) Randee Bansal LPN 12/23/2024 6:17 PM Signed Patient is requesting testing for kidney functions. Patient stated that she will be in tomorrow. VADIM Sommers Liza D, MD 12/23/2024 8:33 PM Signed Filed order for BMP; Did not cancel urine studies in case needs to do at some point. Also, can check UAWM since that can also see how kidneys are functioning (make sure not leaking protein, RBC or WBC) Randee Bansal LPN 12/24/2024 8:59 AM Signed Patient has been notified. Randee Bansal LPN Allergies As of Date: 12/22/2024 Noted Allergy Reaction LOSARTAN 10/04/2020 5 - Intolerance Comments: dizziness; tried in the past; even lowest dose causes dizziness VICODIN (HYDROCODONE-ACETAMINOPH E*05/18/2009 8 - GI Upset AMLODIPINE 09/21/2020 5 - Intolerance Comments: Headache and stomach issues CODEINE ANTITUSSIVE COUGH 12/10/2014 8 - GI Upset LATEX 05/04/2005 2 - Rash Comments: reddness itching LISINOPRIL 09/21/2020 3 - Cough METFORMIN 8 - GI Upset Comments: GI upset RELAFEN (NABUMETONE) 03/29/2007 8 - GI Upset Date Reviewed: 12/04/2024 Reviewed by: Malathi Cardoso MD - Fully Assessed Reason for Visit: Orders [681] Primary Visit Diagnosis:UTI symptoms [R39.9] Other Visit Diagnoses:Controlled type 2 diabetes mellitus without complication, with long-term current use of insulin (HCC) [E11.9, Z79.4] Encounter for long-term current use of medication [Z79.899] Order(s):URINALYSIS, WITH MICROSCOPIC [SQUAWMIC] Order #: [id number] FUTURE BACTERIAL CULTURE, URINE [SQURCUL] Order #: [id number] FUTURE BASIC METABOLIC PANEL [SQBMP] Order #: [id number] FUTURE Prescriptions as of 12/24/2024 - insulin aspart U-100 (NOVOLOG FLEXPEN U-100 INSULIN) 100 unit/mL (3 mL) pen WITH FIRST BITE OF FOOD, 30 UNITS W/BREAKFAST, 30 UNITS W/LUNCH, 30 UNITS W/DINNER; MAY ADJUST WITH SLIDING SCALE GIVEN HIGH BLOOD SUGAR. Max dose 105 units per day - Blood-Glucose Sensor (DEXCOM G7 SENSOR) franklin Apply new sensor every ten (10) days. - cyclobenzaprine (FLEXERIL) 10 mg tablet Take 0.5-1 tablets by mouth two times a day as needed. - ibuprofen (MOTRIN) 800 mg tablet Take 1 tablet by mouth every 8 hours as needed for pain. - blood sugar diagnostic (TRUE METRIX GLUCOSE TEST STRIP) test strip Use with blood glucose test four times a day. Insulin Dep Yes DX E11.65 - Blood-Glucose Meter (TRUE METRIX GLUCOSE METER) 1 kit four times daily. DX E11.65 Insulin yes - Blood-Glucose Meter,Continuous (DEXCOM G7 BINDERY MACHINE TENDER) [facility] Use to check blood sugar at least four (4) times daily. - CPAP Continue APAP @ 13-20 cm of water with humidification. Mask (per patient preference) optional chin strap (if indicated) , filters, tubing, humidifier and lifetime supplies. EPR set at 3. (G47.33) ZHAO (obstructive sleep apnea). Needs new mask at least every 3 months and needs new mask now since current one is leaking. Also needs new headgear now since current one is loose. - fluconazole (DIFLUCAN) 150 mg tablet Take by mouth. Take at onset of yeast infection. Repeat after 5 to 7 days if ongoing symptoms. May treat recurrent episodes as needed. - montelukast (SINGULAIR) 10 mg tablet Take 1 tablet by mouth daily at bedtime. - flash glucose sensor (FREESTYLE DUSYT 2 SENSOR) kit apply 1 SENSOR to back OF UPPER ARM REMOVE AND REPLACE every 14 days use with DEVICE to MONITOR BLOOD SUGAR - nystatin (MYCOSTATIN) cream Apply 1 application to affected area two times a day as needed. - atenolol (TENORMIN) 25 mg tablet Take 1 tablet by mouth once daily. As directed - Aiden (more content not included)... Normal [facility] 11-27-2024 CNPN Telephone (INTMWS) -------- MALATHI ZAMBRANO ([id number]) 1970 F NFR Date Time Provider Department 11/27/24 AURORA MACDONALD INTMWS During your visit today, we recorded the following information about you: Pepper Hernandez, RN 11/27/2024 4:05 PM Signed Karly with [facility] calling in to say that they need a new prior authorization for pt's CPAP supplies as pt is requesting a new face mask, head gear AND tubing for her CPAP machine. Per Karly, the previous Prior Auth in June of this year. Per scanned documents on 07/28/24, there is a document from [facility] scanned in dated 07/01/24 that appears to be a prior auth form with dx of ZHAO with length of time >99 years. Asked Karly to have pt contact us as Karly states pt told her that the prior auth was already taken care of. No notes found in epic. Nurse then called [facility] and spoke with Martha. Martha states that there is nothing needed from the provider's office at this time. Explained to Martha that pt's insurance complany was saying she is requesting a new face mask, head gear AND tubing. Martha will reach out to pt as she states there shouldn't be any issues with providing that to the patient. Ling Brower RN 11/27/2024 4:53 PM Addendum Pt called in and reports she talked with Martha and her rn manager from [facility] and they states they haven't received anything from Dr Macdonald since June. I looked at the order the provider put in and it says it was printed. When the orders print they typically print with the AVS and the Pt's take them with them. The Pt's states she never received the orders and, Dr Macdonald knows I hate the people at that store and that I would never go there.. I let the Pt know I would fax the order over as it is good until 09/12/2005. Faxed order sheet, demographics sheet, and OV note from 09/12/24 faxed to # [phone]. Ling Brower RN Allergies As of Date: 11/27/2024 Noted Allergy Reaction LOSARTAN 10/04/2020 5 - Intolerance Comments: dizziness; tried in the past; even lowest dose causes dizziness VICODIN (HYDROCODONE-ACETAMINOPH E*05/18/2009 8 - GI Upset AMLODIPINE 09/21/2020 5 - Intolerance Comments: Headache and stomach issues CODEINE ANTITUSSIVE COUGH 12/10/2014 8 - GI Upset LATEX 05/04/2005 2 - Rash Comments: reddness itching LISINOPRIL 09/21/2020 3 - Cough METFORMIN 8 - GI Upset Comments: GI upset RELAFEN (NABUMETONE) 03/29/2007 8 - GI Upset Date Reviewed: 11/22/2024 Reviewed by: Laurita Jo MD - Fully Assessed Reason for Visit: Prior authorization for CPAP supplies [Other] Prescriptions as of 11/27/2024 - insulin aspart U-100 (NOVOLOG FLEXPEN U-100 INSULIN) 100 unit/mL (3 mL) pen WITH FIRST BITE OF FOOD, 30 UNITS W/BREAKFAST, 30 UNITS W/LUNCH, 30 UNITS W/DINNER; MAY ADJUST WITH SLIDING SCALE GIVEN HIGH BLOOD SUGAR. Max dose 105 units per day - Blood-Glucose Sensor (DEXCOM G7 SENSOR) franklin Apply new sensor every ten (10) days. - cyclobenzaprine (FLEXERIL) 10 mg tablet Take 0.5-1 tablets by mouth two times a day as needed. - ibuprofen (MOTRIN) 800 mg tablet Take 1 tablet by mouth every 8 hours as needed for pain. - blood sugar diagnostic (TRUE METRIX GLUCOSE TEST STRIP) test strip Use with blood glucose test four times a day. Insulin Dep Yes DX E11.65 - Blood-Glucose Meter (TRUE METRIX GLUCOSE METER) 1 kit four times daily. DX E11.65 Insulin yes - Blood-Glucose Meter,Continuous (DEXCOM G7 BINDERY MACHINE TENDER) misc Use to check blood sugar at least four (4) times daily. - CPAP Continue APAP @ 13-20 cm of water with humidification. Mask (per patient preference) optional chin strap (if indicated) , filters, tubing, humidifier and lifetime supplies. EPR set at 3. (G47.33) ZHAO (obstructive sleep apnea). Needs new mask at least every 3 months and needs new mask now since current one is leaking. Also needs new headgear now since current one is loose. - fluconazole (DIFLUCAN) 150 mg tablet Take by mouth. Take at onset of yeast infection. Repeat after 5 to 7 days if ongoing symptoms. May treat recurrent episodes as needed. - montelukast (SINGULAIR) 10 mg tablet Take 1 tablet by mouth daily at bedtime. - flash glucose sensor (FREESTYLE DUSTY 2 SENSOR) kit apply 1 SENSOR to back OF UPPER ARM REMOVE AND REPLACE every 14 days use with DEVICE to MONITOR BLOOD SUGAR - nystatin (MYCOSTATIN) cream Apply 1 application to affected area two times a day as needed. - atenolol (TENORMIN) 25 mg tablet Take 1 tablet by mouth once daily. As directed - Cane Use as directed for help with balance - Cholecalciferol, Vitamin D3, 125 mcg (5,000 unit) cap Take 1 capsule by mouth once daily. - DULoxetine (CYMBALTA) 30 mg capsule Take 1 capsule by mouth once daily. - omeprazole (PRILOSEC) 20 mg capsule Take 1 capsule by mouth daily before breakfast. 1/2 hr before meal. As directed. - insulin (more content not included)... Normal [facility] 11-24-2024 GAURI Telephone (OBGYWM) -------- MALATHI ZAMBRANO ([id number]) 1970 F NFR Date Time Provider Department 11/24/24 JOSE OH OBGYWM During your visit today, we recorded the following information about you: Nayla Gallegos RN 11/24/2024 9:52 AM Signed Jose Oh MD to [facility] Ob-Solution Advisor Pool 11/24/24 8:58 AM Result Note Schedule consult w/ me, can be VV if she prefers. Jose Oh MD PELVIC US [facility] Nayla Gallegos RN 11/24/2024 9:52 AM Signed Left message for patient to call office. (See Sensdatat message RR sent to Pt. Pt has not read at this time re:Pelvic US results). RIK Salomon Jennifer, RN 11/24/2024 1:41 PM Signed Patient returned our call. Notified that RR recommends scheduling with her to discuss options. Patient preferred DM since she did her last surgery. No openings until Jan 08 got VV. Patient declined appt with RR due to personal reasons. Offered to schedule with . Patient ultimately chose to talk with JG first. Aware JG does not perform surgery. She would like her opinion first. Malathi Colin RN Allergies As of Date: 11/24/2024 Noted Allergy Reaction LOSARTAN 10/04/2020 5 - Intolerance Comments: dizziness; tried in the past; even lowest dose causes dizziness VICODIN (HYDROCODONE-ACETAMINOPH E*05/18/2009 8 - GI Upset AMLODIPINE 09/21/2020 5 - Intolerance Comments: Headache and stomach issues CODEINE ANTITUSSIVE COUGH 12/10/2014 8 - GI Upset LATEX 05/04/2005 2 - Rash Comments: reddness itching LISINOPRIL 09/21/2020 3 - Cough METFORMIN 8 - GI Upset Comments: GI upset RELAFEN (NABUMETONE) 03/29/2007 8 - GI Upset Date Reviewed: 11/22/2024 Reviewed by: Laurita Jo MD - Fully Assessed Reason for Visit: Results [95] Prescriptions as of 11/24/2024 - Blood-Glucose Sensor (DEXCOM G7 SENSOR) franklin Apply new sensor every ten (10) days. - cyclobenzaprine (FLEXERIL) 10 mg tablet Take 0.5-1 tablets by mouth two times a day as needed. - ibuprofen (MOTRIN) 800 mg tablet Take 1 tablet by mouth every 8 hours as needed for pain. - blood sugar diagnostic (TRUE METRIX GLUCOSE TEST STRIP) test strip Use with blood glucose test four times a day. Insulin Dep Yes DX E11.65 - Blood-Glucose Meter (TRUE METRIX GLUCOSE METER) 1 kit four times daily. DX E11.65 Insulin yes - Blood-Glucose Meter,Continuous (DEXCOM G7 BINDERY MACHINE TENDER) misc Use to check blood sugar at least four (4) times daily. - CPAP Continue APAP @ 13-20 cm of water with humidification. Mask (per patient preference) optional chin strap (if indicated) , filters, tubing, humidifier and lifetime supplies. EPR set at 3. (G47.33) ZHAO (obstructive sleep apnea). Needs new mask at least every 3 months and needs new mask now since current one is leaking. Also needs new headgear now since current one is loose. - fluconazole (DIFLUCAN) 150 mg tablet Take by mouth. Take at onset of yeast infection. Repeat after 5 to 7 days if ongoing symptoms. May treat recurrent episodes as needed. - montelukast (SINGULAIR) 10 mg tablet Take 1 tablet by mouth daily at bedtime. - flash glucose sensor (FREESTYLE DUSTY 2 SENSOR) kit apply 1 SENSOR to back OF UPPER ARM REMOVE AND REPLACE every 14 days use with DEVICE to MONITOR BLOOD SUGAR - nystatin (MYCOSTATIN) cream Apply 1 application to affected area two times a day as needed. - atenolol (TENORMIN) 25 mg tablet Take 1 tablet by mouth once daily. As directed - Cane Use as directed for help with balance - Cholecalciferol, Vitamin D3, 125 mcg (5,000 unit) cap Take 1 capsule by mouth once daily. - DULoxetine (CYMBALTA) 30 mg capsule Take 1 capsule by mouth once daily. - omeprazole (PRILOSEC) 20 mg capsule Take 1 capsule by mouth daily before breakfast. 1/2 hr before meal. As directed. - insulin aspart U-100 (NOVOLOG FLEXPEN U-100 INSULIN) 100 unit/mL (3 mL) WITH FIRST BITE OF FOOD, 30 UNITS W/BREAKFAST, 30 UNITS W/LUNCH, 30 UNITS W/DINNER; MAY ADJUST WITH SLIDING SCALE GIVEN HIGH BLOOD SUGAR. Max dose 105 units per day - insulin glargine (LANTUS SOLOSTAR U-100 INSULIN) 100 unit/mL (3 mL) Inject 120 Units subcutaneously daily at bedtime. Please dispense 15 pens (3 boxes at a time). - Insulin [place], Disposable, (BD INSULIN PEN NEEDLE UF) 29 gauge x 1/2 Use 1 Needle For Each Dose 3-4 Times Daily With Novolog Pen For Meals and At Bedtime if Needed - fluticasone (FLOVENT HFA) 220 mcg/actuation inhaler Inhale 2 Puffs as instructed two times a day. - Blood-Glucose Meter (FREESTYLE LITE METER) monitoring kit Check blood sugars as directed for controlled Type 2 DM without complication - albuterol HFA (VENTOLIN HFA) 90 mcg/actuation inhaler Inhale 2 Puffs as instructed every 4 hours as needed for wheezing/shortness of breath. - albuterol (PROVENTIL) 2.5 mg /3 mL (0.083 %) nebulizer solution Use 3 mL via nebulizer every 4 hours as needed for wheezing/sh (more content not included)... Normal [facility] US Pelvison 11-22-2024 Indication abnormal bleeding due to endometrial polyp Impression The uterus position is variable and measures 105 mm x 43 mm x 60 mm. The endometrial thickness is 9.4 mm. The endometrium is suboptimally visualized but no obvious polyp or vascularity is present. Neither ovary was able to be visualized secondary to body habitus and patient's intolerance of examination. No adnexal masses were visualized. There is no free fluid visualized. Recommendations Clinical correlation recommended. Menstrual History LMP on 10/24/2024. Cycle: irregular cycle Method Transabdominal, transvaginal, 3D ultrasound examination, Color Doppler examination. View: Suboptimal view: limited by maternal body habitus. Suboptimal view: restricted by patient discomfort. Suboptimal view: restricted by increased bowel gas Uterus Uterus: Visualized Uterus position: anteverted Description of uterine malformations: none Myometrium: heterogeneous Endometrium: homogenous Cervix details: normal Uterus length 105 mm Uterus width 60 mm Uterus height 43 mm Uterus Vol 142.6 cm Endometrial thickness, total 9.4 mm Fibroids: No fibroids identified Polyps: No polyps identified Right Ovary Rt ovary: Not visualized Left Ovary Lt ovary: Not visualized Cul de Sac Visualized. no free fluid visualized Performed By: Marylou Witt RDMS Read By: Laurita Jo M.D. MATERNAL MEDICINE [facility] US Pelvison 11-21-2024 Radiology Study observation (narrative) [facility] CNPNon 11-04-2024 CNPN Telephone (INTMWS) -------- MALATHI ZAMBRANO ([id number]) 1970 F NFR Date Time Provider Department 11/04/24 CHRIS BRUSH INTMWS During your visit today, we recorded the following information about you: Mily Madison LPN 11/04/2024 1:02 PM Signed Jeanne from [facility] pharmacy calling patient insurance not covering One Touch test strips, only True Metrix. So now need new meter and test strip rx sent to the pharmacy. Pending new rx to file. Please advise The patient has been identified by name and date of : Yes, pharmacy Caregiver verified no other encounters exist for this prescription request: Yes Caregiver confirmed with patient/requestor that no other refills are due, in the near future, with this provider at this time: Yes The last office visit in the department: 09/12/2024 Does the patient have a future office visit with this provider/department: Yes 01/14/2025 Requested Prescriptions Pending Prescriptions Disp Refills blood sugar diagnostic (TRUE METRIX GLUCOSE TEST STRIP) test strip 200 strip 5 Sig: Use with blood glucose test four times a day. Insulin Dep Yes DX E11.65 Blood-Glucose Meter (TRUE METRIX GLUCOSE METER) 1 each 0 Si kit four times daily. DX E11.65 Insulin yes Mily Madison LPN November 04, 2024 1:01 PM Chris Brush, CLINICAL SYSTEMS EDUCATOR.SUBSTITUTE NURSE 11/04/2024 1:05 PM Signed uday Gricelda MilyVADIM 11/07/2024 3:51 PM Signed Patient calling saying [facility] pharmacy told her needs PA for the True Metrix glucose meter. Messaged PA nurse and she said she did not get a PA for that, and it is covered no PA is needed. Patient aware and she is calling the pharmacy back again. Pari Oliver RN 11/07/2024 4:11 PM Signed Patient calls back again to let office know that she contacted [facility] and they ran the order for the True Metrix Meter again and it is requiring a PA. [facility] is sending over the forms again to providers office. RIK Batista Janice, VADIM 11/11/2024 1:34 PM Signed Called the pharmacy and no PA is needed for the truemetrix. They filled this without issues and pt has picked this up. Allergies As of Date: 11/04/2024 Noted Allergy Reaction LOSARTAN 10/04/2020 5 - Intolerance Comments: dizziness; tried in the past; even lowest dose causes dizziness VICODIN (HYDROCODONE-ACETAMINOPH E*05/18/2009 8 - GI Upset AMLODIPINE 09/21/2020 5 - Intolerance Comments: Headache and stomach issues CODEINE ANTITUSSIVE COUGH 12/10/2014 8 - GI Upset LATEX 05/04/2005 2 - Rash Comments: reddness itching LISINOPRIL 09/21/2020 3 - Cough METFORMIN 8 - GI Upset Comments: GI upset RELAFEN (NABUMETONE) 03/29/2007 8 - GI Upset Date Reviewed: 10/31/2024 Reviewed by: Malathi Cardoso MD - Fully Assessed Reason for Visit: insurance not covering one touch test strips [Other] Order(s):blood sugar diagnostic (TRUE METRIX GLUCOSE TEST STRIP) test stripUse with blood glucose test four times a day. Insulin Dep Yes DX E11.65Disp: 200 stripRfl: 5 Blood-Glucose Meter (TRUE METRIX GLUCOSE METER)1 kit four times daily. DX E11.65 Insulin yesDisp: 1 eachRfl: 0 Prescriptions as of 11/11/2024 - Blood-Glucose Sensor (DEXCOM G7 SENSOR) franklin Apply new sensor every ten (10) days. - mupirocin (BACTROBAN) 2 % ointment Apply 1 application to affected area three times a day for 10 days. Location: torso wounds as directed till healed - cyclobenzaprine (FLEXERIL) 10 mg tablet Take 0.5-1 tablets by mouth two times a day as needed. - ibuprofen (MOTRIN) 800 mg tablet Take 1 tablet by mouth every 8 hours as needed for pain. - blood sugar diagnostic (TRUE METRIX GLUCOSE TEST STRIP) test strip Use with blood glucose test four times a day. Insulin Dep Yes DX E11.65 - Blood-Glucose Meter (TRUE METRIX GLUCOSE METER) 1 kit four times daily. DX E11.65 Insulin yes - Blood-Glucose Meter,Continuous (DEXCOM G7 BINDERY MACHINE TENDER) misc Use to check blood sugar at least four (4) times daily. - CPAP Continue APAP @ 13-20 cm of water with humidification. Mask (per patient preference) optional chin strap (if indicated) , filters, tubing, humidifier and lifetime supplies. EPR set at 3. (G47.33) ZHAO (obstructive sleep apnea). Needs new mask at least every 3 months and needs new mask now since current one is leaking. Also needs new headgear now since current one is loose. - fluconazole (DIFLUCAN) 150 mg tablet Take by mouth. Take at onset of yeast infection. Repeat after 5 to 7 days if ongoing symptoms. May treat recurrent episodes as needed. - montelukast (SINGULAIR) 10 mg tablet Take 1 tablet by mouth daily at bedtime. - flash glucose sensor (FREESTYLE DUSTY 2 SENSOR) kit apply 1 SENSOR to back OF UPPER ARM REMOVE AND REPLACE every 14 days use with DEVICE to MONITOR BLOOD SUGAR - nystatin (MYCOSTATIN) cream Apply 1 application to affected area two times a day as needed. - atenolol (TENORMIN (more content not included)... Normal [facility] CNOVon 10-31-2024 CNOV Office Visit (OBGYWM ) -------- FRANKI WARREN MALATHI FELDMAN ([id number]) 1970 F NFR Date Time Provider Department 10/31/24 4:00 PM MALATHI CARDOSO OBGYWNaseem During your visit today, we recorded the following information about you: Blood pressure Weight 120/74 128.4 kg Malathi Cardoso MD 10/31/2024 4:06 PM Signed [employer] Consultant offered: Patient declines. Malathi is a 54 year old Female who presents today for an endometrial biopsy for abnormal uterine bleeding. test: n/a UNIVERSAL PROTOCOL / SAFETY CHECKLIST Procedure to be Performed: Endometrial Biopsy Sign In: A Moment of CARE was completed. Appropriate PPE (Personal Protective Equipment) worn by all providers involved with the procedure. Special equipment not required. Patient/Surrogate Stated/Verified: Patient name, Date of , Relevant allergies, and The intended procedure Time Out: Relevant labs, photos, and/or imaging studies have been reviewed. Intended patient and procedure match the source document(s) (e.g. consent, HANDP, associated studies [imaging, pathology]) match the intended patient and procedure. Consent obtained and matches the intended procedure. Yes. Correct side/site is not applicable. Medications required for this procedure are not applicable. Fire risk assessed and is not applicable. Implants: are not applicable. Sign Out: Specimens are all correctly labeled and sent. All instruments, equipment, possible retained foreign bodies are accounted for. Yes. The post-procedure plan of care has been communicated to the patient or surrogate. PROCEDURE: EXTERNAL GENITALIA: Normal in appearance without lesions VAGINA: Normal in appearance without lesions BIOPSY: Speculum placed into the vagina with excellent visualization of the cervix. Cervix cleaned with betadine. Anterior lip of cervix grasped with single toothed tenaculum. Uterus sounded to 8 cm. Pipelle inserted into the uterus without difficulty and endometrial biopsy obtained. Specimen labeled and sent to pathology. Hemostasis achieved. Procedure Summary: Patient tolerated procedure well. ASSESSMENT: abnormal uterine bleeding PLAN: Specimens labeled and sent to Pathology. Will notify patient of results in 1-2 weeks. Planning another IUD if normal pathology MD Natalia Carpenter Amanda, MA 10/31/2024 3:35 PM Signed YOUR RECOVERY After your biopsy you may have: Vaginal bleeding (less than a normal menstrual period) Mild cramping Do NOT put anything in the vagina for 1 week after your endometrial biopsy. This includes: tampons douches and refraining from having sexual intercourse If you have any discomfort, you may take an over the counter pain medication (motrin, advil, ibuprofen, tylenol, etc). If this does not relieve your discomfort, contact the office. It is okay to wear a sanitary pad until the discharge and spotting stops. RISKS Although problems seldom occur with endometrial biopsies, there can be some complications. You may feel faint during and shortly after the procedure as well as have some bleeding after the procedure. There is also a risk of infection after the procedure. These complications are rare and can be easily treated. You should contact you doctor is you have any of the following: Heavy bleeding (more than your normal period) Bleeding with clots Severe abdominal pain Fever (more than 100.4F) Foul smelling vaginal discharge RESULTS We will have the results of your biopsy in 1-2 weeks. If you do not hear the results of your biopsy after 2 weeks, please contact the office for the results. If you have any additional questions or concerns please do not hesitate to contact the office. Allergies As of Date: 10/31/2024 Noted Allergy Reaction LOSARTAN 10/04/2020 5 - Intolerance Comments: dizziness; tried in the past; even lowest dose causes dizziness VICODIN (HYDROCODONE-ACETAMINOPH E*05/18/2009 8 - GI Upset AMLODIPINE 09/21/2020 5 - Intolerance Comments: Headache and stomach issues CODEINE ANTITUSSIVE COUGH 12/10/2014 8 - GI Upset LATEX 05/04/2005 2 - Rash Comments: reddness itching LISINOPRIL 09/21/2020 3 - Cough METFORMIN 8 - GI Upset Comments: GI upset RELAFEN (NABUMETONE) 03/29/2007 8 - GI Upset Date Reviewed: 10/31/2024 Reviewed by: Malathi Cardoso MD - Fully Assessed Reason for Visit: Endometrial Biopsy [9521] Primary Visit Diagnosis:Abnormal uterine bleeding (AUB) [N93.9] Other Visit Diagnoses:Screening for cervical cancer [Z12.4] Screening for human papillomavirus (HPV) [Z11.51] Order(s):ENDOMETRIAL BIOPSY [[id number]] Order #: [id number] SURGICAL PATHOLOGY [[id number]] Order #: [id number] PAP TEST [[id number]] Order #: [id number] Prescriptions as of 10/31/2024 - CPAP Continue APAP @ 13-20 cm of water with humidification. Mask (per patient preference) optional chin strap (if ind (more content not included)... Normal [facility] HIGH RISK HUMAN PAPILLOMA CARA (HPV), PCR FOR DETECTION AND GENOTYPINGon 10-31-2024 HPV 16 Ag Ql (Unsp spec) Not detected Normal Not detected [facility] Comment on above: Order Comment: Speci men Type: BLOOD SPECIMEN Ordering Facility: [facility] Address: [address] [place] [address] Performed By: #### 5 8410-2 #### [facility] [id number] [address] [place] [address] HPV 18 Ag Ql (Unsp spec) Not detected Normal Not detected [facility] Comment on above: Order Comment: Speci men Type: BLOOD SPECIMEN Ordering Facility: [facility] Address: [address] [place] [address] Performed By: #### 5 8410-2 #### [facility] [id number] [address] [place] [address] [place] HPV 31+33+35+39+45+51+5 2+56+58+59+66+68 DNA LUIS ALBERTO+probe Ql (Cvx) Not detected Normal Not detected [facility] Comment on above: Order Comment: Speci men Type: BLOOD SPECIMEN Ordering Facility: [facility] Address: [address] [place] [address] Result Comment: High Risk HPV Other Type includes HPV types 31, 33, 35, 39, 45, 51, 52, 56, 58, 59, 66 and 68. Performed By: #### 5 8410-2 #### [facility] [id number] [address] [place] [address] [place] PAP TESTon 10-31-2024 ADEQUACY Satisfactory for interpretation. Normal [facility] Comment on above: Order Comment: Speci men Type: FLUID SPECIMENOrdering Facility: [facility] Address: [address] [place] [address] Performed By: #### L [id number] ####[facility] [id number] [place] [id number] [facility] LABCLIA [id number] [address] [place] [address] [place] CASE REPORT Normal [facility] Comment on above: Order Comment: Speci men Type: FLUID SPECIMENOrdering Facility: [facility] Address: [address] [place] [address] Result Comment: Gyne cologic Cytology Report Case: [id number] Authorizing Provider: Malathi Cardoso MD Collected: 10/31/2024 04:09 PM Ordering Location: OB/Gynecology Received: 10/31/2024 04:44 PM First Screen: Jose Lizarraga, CT, ASCP Pathologist: Hugo Coleman MD Specimen: Pap Test, ThinPrep, Cervix Performed By: #### L [id number] ####[facility] [id number] [address] LABCLIA [id number] [address], [facility] [place] Order Comment: Speci men Type: TISSUE SPECIMENOrdering Facility: [facility] Address: [address] [place] [address] Result Comment: Surg ica Pathology Report Case: [id number] Authorizing Provider: Malathi Cardoso MD Collected: 10/31/2024 04:09 PM Ordering Location: OB/Gynecology Received: 10/31/2024 04:35 PM Pathologist: Mica Silver MD Specimen: Endometrium, Biopsy Performed By: #### 6 6121-5 ####[facility] LABCLIA [id number] [address] [place] [address] [place] CLINICAL HISTORY, CYTOLOGY, 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 Abnormal Bleeding (Describe) Normal [facility] Comment on above: Order Comment: Speci men Type: FLUID SPECIMENOrdering Facility: [facility] Address: [address] [place] [address] Performed By: #### L [id number] ####[facility]ORYCLIA [id number] [address] LABCLIA [id number] [place] [address] [place] FINAL PERFORMING LAB Normal [facility] Comment on above: Order Comment: Speci men Type: FLUID SPECIMENOrdering Facility: [facility] Address: [address] [place] [address] Result Comment: Tech nical component, geriatric case manager screening performed at: [facility], [address] [place] [address] CLIA: [id number] Diagnostic interpretation performed at: [facility], [address] [place] [address] CLIA# [id number] Chief Engineer Research: Howie Osborne MD Performed By: #### L [id number] ####[facility]ORYCLIA [id number] [address] LABCLIA [id number] [address] [place] Order Comment: Speci men Type: TISSUE SPECIMENOrdering Facility: [facility] Address: [address] [place] [address] Result Comment: Diag nostic interpretation performed at: [facility], [address] [place] [address] [place], [place] [address] CLIA# [id number] Chief Engineer Research: Ernst Villalpando MD Performed By: #### 6 6121-5 ####[facility] LABCLIA [id number] [place] [id number] [place] INTERPRETATION, CYTOLOGY, FEATHER 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 Abnormal [facility] Comment on above: Order Comment: Speci men Type: FLUID SPECIMENOrdering Facility: [facility] Address: [address] [place] [address] Result Comment: Atyp ical glandular cells, not otherwise specified (see comment). at 1435 EDT Performed By: #### L [id number] ####[facility]ATORYCLIA [id number] [address] LABCLIA [id number] [address] [address] [place] LMP 10/21/2024 Normal [facility] Comment on above: Order Comment: Speci men Type: FLUID SPECIMENOrdering Facility: [facility] Address: [address] [place] [address] Performed By: #### L [id number] ####[facility]ORATORYCLIA [id number] [address] LABCLIA [id number] [address] [place] [address] [place] PAP DISCLAIMER COMMENT The Pap Smear is a screening test for cervical cancer. False negative results occur with all screening tests, emphasizing the need for rescreening at recommended intervals, and clinical correlation. Normal [facility] Comment on above: Order Comment: Speci men Type: FLUID SPECIMENOrdering Facility: [facility] Address: [address] [place] [address] Performed By: #### L [id number] ####[facility]ORATORYCLIA [id number] [place] [address] [facility] LABCLIA [id number] [address] [address] [place] PAP GENERAL CATEGORIZATION Epithelial Cell Abnormality Normal [facility] Comment on above: Order Comment: Speci men Type: FLUID SPECIMENOrdering Facility: [facility] Address: [address] [place] [address] Performed By: #### L [id number] ####[facility]ORATORYCLIA [id number] [place] [id number] [facility] LABCLIA [id number] [place] [id number] [facility] PAP MARINE DESIGNER COMMENT This specimen has be en analyzed by the FDA-approved InExchange System, which uses digital imaging and an enhanced artificial intelligence image analysis algorithm to identify arshad of interest on the microscopic slide, to assist the zinc etcher and pathologist in evaluating cells on ThinPrep Pap tests. Following analysis, arshad of interest on the microscopic slide selected by the algorithm are reviewed by a zinc etcher. If a sample requires hierarchical review, the pathologist will review the same arshad of interest selected by the algorithm prior to final interpretation. Normal [facility] Comment on above: Order Comment: Gloria akhtar Type: FLUID SPECIMENOrdering Facility: [facility] Address: [address] [place] [address] Performed By: #### L [id number] ####[facility] EDMONDSIA [id number] [place] [id number] [facility] LABIA [id number] [place] [id number] [facility] OF [place] Pathology biopsy report Tera (Tiss)on 10-31-2024 AP DISCLAIMER Normal [facility] Comment on above: Order Comment: Gloria akhtar Type: TISSUE SPECIMENOrdering Facility: [facility] Address: [address] [place] [address] Result Comment: Doris hawthorne Developed Test (LDT) Disclaimer: Performance characteristics of immunohistochemical, immunofluorescent, and chromogenic in-situ hybridization tests have been determined by the performing laboratory within [facility] ([facility], [facility], [facility], [facility], [facility], or [facility]) in a manner consistent with CLIA requirements. One or more of these tests may not have been cleared or approved by the FDA. [facility] is regulated under CLIA as qualified to perform high-complexity testing. These tests are used for clinical purposes. These should not be regarded as investigational or for research. Positive and negative controls stain appropriately. Performed By: #### 6 6121-5 ####[facility] LABCLIA [id number] [address] [place] [address] [place] CLINICAL HISTORY AUB Normal [facility] Comment on above: Order Comment: Speci men Type: TISSUE SPECIMENOrdering Facility: [facility] Address: [address] [place] [address] Performed By: #### 6 6121-5 ####[facility] LABCLIA [id number] [address] [place] [address] [place] DIAGNOSIS COMMENT The findings suggest an altered hormonal environment. Normal [facility] Comment on above: Order Comment: Speci men Type: TISSUE SPECIMENOrdering Facility: [facility] Address: [address] [place] [address] Performed By: #### 6 6121-5 ####[facility] LABIA [id number] [place] [id number] [place] FINAL DIAGNOSIS Normal [facility] Comment on above: Order Comment: Speci men Type: TISSUE SPECIMENOrdering Facility: [facility] Address: [address] [place] [address] Result Comment: Endo metrium, biopsy: 1. Superficial fragments of inactive to weakly proliferative pattern endometrium with stromal breakdown; see comment. 2. Fragment suggestive of endometrial polyp. 3. Scant benign endocervical mucosa. at 1527 EDT Performed By: #### 6 6121-5 ####[facility] LABIA [id number] [address] [address] [place] GROSS DESCRIPTION Normal [facility] Comment on above: Order Comment: Speci men Type: TISSUE SPECIMENOrdering Facility: [facility] Address: [address] [place] [address] Result Comment: A. E ndometrium, Biopsy Received in formalin are multiple brown, soft feathery segments of tissue aggregating to 2.5 x 2.0 x 0.4 cm. Totally submitted in one cassette. Gross examination performed at [facility], [facility] [place] [address] FF 10/31/2024 9:49 PM Performed By: #### 6 6121-5 ####[facility] LABCLIA [id number] [facility] [address] CNPSherry 10-29-2024 CNPN Telephone (OBGYWM) -------- MALATHI ZAMBRANO ([id number]) 1970 F NFR Date Time Provider Department 10/29/24 MALATHI CARDOSO During your visit today, we recorded the following information about you: Sydney Hoyt LPN 10/29/2024 4:37 PM Signed Patient called stating that she has had vaginal bleeding since Mirena was removed 10/21/2024 and bleeding has been getting heavier. Patient asking if an endometrial biopsy is next step before having another IUD placed and if EMB can be done at appointment on 10/31? If EMB can be done at appointment, patient wouild like a call so she can be prepared. Patient is aware that provider is out of the office until 10/31/24 Malathi Colin, RIK 10/29/2024 4:47 PM Signed Patient has also sent a [employer] message. Malathi Colin RN Allergies As of Date: 10/29/2024 Noted Allergy Reaction LOSARTAN 10/04/2020 5 - Intolerance Comments: dizziness; tried in the past; even lowest dose causes dizziness VICODIN (HYDROCODONE-ACETAMINOPH E*05/18/2009 8 - GI Upset AMLODIPINE 09/21/2020 5 - Intolerance Comments: Headache and stomach issues CODEINE ANTITUSSIVE COUGH 12/10/2014 8 - GI Upset LATEX 05/04/2005 2 - Rash Comments: reddness itching LISINOPRIL 09/21/2020 3 - Cough METFORMIN 8 - GI Upset Comments: GI upset RELAFEN (NABUMETONE) 03/29/2007 8 - GI Upset Date Reviewed: 10/21/2024 Reviewed by: Malathi Cardoso MD - Fully Assessed Reason for Visit: Patient Update [1234] Prescriptions as of 11/06/2024 - blood sugar diagnostic (TRUE METRIX GLUCOSE TEST STRIP) test strip Use with blood glucose test four times a day. Insulin Dep Yes DX E11.65 - Blood-Glucose Meter (TRUE METRIX GLUCOSE METER) 1 kit four times daily. DX E11.65 Insulin yes - Blood-Glucose Meter,Continuous ([employer] G7 BINDERY MACHINE TENDER) misc Use to check blood sugar at least four (4) times daily. - CPAP Continue APAP @ 13-20 cm of water with humidification. Mask (per patient preference) optional chin strap (if indicated) , filters, tubing, humidifier and lifetime supplies. EPR set at 3. (G47.33) ZHAO (obstructive sleep apnea). Needs new mask at least every 3 months and needs new mask now since current one is leaking. Also needs new headgear now since current one is loose. - fluconazole (DIFLUCAN) 150 mg tablet Take by mouth. Take at onset of yeast infection. Repeat after 5 to 7 days if ongoing symptoms. May treat recurrent episodes as needed. - montelukast (SINGULAIR) 10 mg tablet Take 1 tablet by mouth daily at bedtime. - ibuprofen (MOTRIN) 800 mg tablet Take 1 tablet by mouth every 8 hours as needed for pain. - cyclobenzaprine (FLEXERIL) 10 mg tablet Take 0.5-1 tablets by mouth two times a day as needed. - flash glucose sensor (FREESTYLE DUSTY 2 SENSOR) kit apply 1 SENSOR to back OF UPPER ARM REMOVE AND REPLACE every 14 days use with DEVICE to MONITOR BLOOD SUGAR - nystatin (MYCOSTATIN) cream Apply 1 application to affected area two times a day as needed. - atenolol (TENORMIN) 25 mg tablet Take 1 tablet by mouth once daily. As directed - Cane Use as directed for help with balance - Cholecalciferol, Vitamin D3, 125 mcg (5,000 unit) cap Take 1 capsule by mouth once daily. - DULoxetine (CYMBALTA) 30 mg capsule Take 1 capsule by mouth once daily. - omeprazole (PRILOSEC) 20 mg capsule Take 1 capsule by mouth daily before breakfast. 1/2 hr before meal. As directed. - insulin aspart U-100 (NOVOLOG FLEXPEN U-100 INSULIN) 100 unit/mL (3 mL) WITH FIRST BITE OF FOOD, 30 UNITS W/BREAKFAST, 30 UNITS W/LUNCH, 30 UNITS W/DINNER; MAY ADJUST WITH SLIDING SCALE GIVEN HIGH BLOOD SUGAR. Max dose 105 units per day - insulin glargine (LANTUS SOLOSTAR U-100 INSULIN) 100 unit/mL (3 mL) Inject 120 Units subcutaneously daily at bedtime. Please dispense 15 pens (3 boxes at a time). - Blood-Glucose Sensor ([employer] G7 SENSOR) franklin Apply new sensor every ten (10) days. - Insulin [place], Disposable, (BD INSULIN PEN NEEDLE UF) 29 gauge x 1/2 Use 1 Needle For Each Dose 3-4 Times Daily With Novolog Pen For Meals and At Bedtime if Needed - fluticasone (FLOVENT HFA) 220 mcg/actuation inhaler Inhale 2 Puffs as instructed two times a day. - Blood-Glucose Meter (FREESTYLE LITE METER) monitoring kit Check blood sugars as directed for controlled Type 2 DM without complication - albuterol HFA (VENTOLIN HFA) 90 mcg/actuation inhaler Inhale 2 Puffs as instructed every 4 hours as needed for wheezing/shortness of breath. - albuterol (PROVENTIL) 2.5 mg /3 mL (0.083 %) nebulizer solution Use 3 mL via nebulizer every 4 hours as needed for wheezing/shortness of breath. Use over 5-15minutes. - hydroCHLOROthiazide (HYDRODIURIL, ESIDRIX) 25 mg tablet Take 1 tablet by mouth once daily. As needed for swelling from fluid retention - flash glucose scanning reader (iCrimefighterYLE DUSTY 2 READER) Check glucose 4 times a day or (more content not included)... Normal [facility] CNOVon 10-21-2024 CNOV Office Visit (OBGYWM ) -------- MALATHI ZAMBRANO ([id number]) 1970 F NFR Date Time Provider Department 10/21/24 2:20 PM MALATHI CARDOSO OBGYWM During your visit today, we recorded the following information about you: Blood pressure Weight 122/80 128.7 kg Malathi Cardoso MD 10/21/2024 2:31 PM Signed [employer] Consultant offered: Patient declines. Malathi presents for removal of IUD due to pain and irregular bleeding. UNIVERSAL PROTOCOL / SAFETY CHECKLIST Procedure to be Performed: IUD Removal Sign In: A Moment of CARE was completed. Appropriate PPE (Personal Protective Equipment) worn by all providers involved with the procedure. Special equipment not required. Patient/Surrogate Stated/Verified: Patient name, Date of , Relevant allergies, and The intended procedure Time Out: Relevant labs, photos, and/or imaging studies have been reviewed. Intended patient and procedure match the source document(s) (e.g. consent, HANDP, associated studies [imaging, pathology]) match the intended patient and procedure. Consent obtained and matches the intended procedure. Yes. Correct side/site is not applicable. Medications required for this procedure are not applicable. Fire risk assessed and is not applicable. Implants: are not applicable. Sign Out: Specimens are all correctly labeled and sent. All instruments, equipment, possible retained foreign bodies are accounted for. Yes. The post-procedure plan of care has been communicated to the patient or surrogate. PROCEDURE: Speculum placed in vagina, IUD string visualized and grasped with ring forceps. ASSESSMENT/PLAN: IUD removed without difficulty, intact, and patient tolerated procedure well. Contraception plans: Mirena IUD Checking menopause state with [facility] Malathi Cardoso MD Referring Provider: MALATHI CARDOSO [[id number]] Allergies As of Date: 10/21/2024 Noted Allergy Reaction LOSARTAN 10/04/2020 5 - Intolerance Comments: dizziness; tried in the past; even lowest dose causes dizziness VICODIN (HYDROCODONE-ACETAMINOPH E*05/18/2009 8 - GI Upset AMLODIPINE 09/21/2020 5 - Intolerance Comments: Headache and stomach issues CODEINE ANTITUSSIVE COUGH 12/10/2014 8 - GI Upset LATEX 05/04/2005 2 - Rash Comments: reddness itching LISINOPRIL 09/21/2020 3 - Cough METFORMIN 8 - GI Upset Comments: GI upset RELAFEN (NABUMETONE) 03/29/2007 8 - GI Upset Date Reviewed: 10/21/2024 Reviewed by: Malathi Cardoso MD - Fully Assessed Reason for Visit: IUD Removal [1950] Primary Visit Diagnosis:Encounter for IUD removal [Z30.432] Other Visit Diagnosis:Menopausal symptoms [N95.1] Order(s):REMOVE INTRAUTERINE DEVICE [9699972] Order #: [id number] FOLLICLE STIMULATING HORMONE [SQFSH] Order #: [id number] FUTURE Prescriptions as of 10/21/2024 - CPAP Continue APAP @ 13-20 cm of water with humidification. Mask (per patient preference) optional chin strap (if indicated) , filters, tubing, humidifier and lifetime supplies. EPR set at 3. (G47.33) ZHAO (obstructive sleep apnea). Needs new mask at least every 3 months and needs new mask now since current one is leaking. Also needs new headgear now since current one is loose. - fluconazole (DIFLUCAN) 150 mg tablet Take by mouth. Take at onset of yeast infection. Repeat after 5 to 7 days if ongoing symptoms. May treat recurrent episodes as needed. - montelukast (SINGULAIR) 10 mg tablet Take 1 tablet by mouth daily at bedtime. - ibuprofen (MOTRIN) 800 mg tablet Take 1 tablet by mouth every 8 hours as needed for pain. - cyclobenzaprine (FLEXERIL) 10 mg tablet Take 0.5-1 tablets by mouth two times a day as needed. - flash glucose sensor (FREESTYLE DUSTY 2 SENSOR) kit apply 1 SENSOR to back OF UPPER ARM REMOVE AND REPLACE every 14 days use with DEVICE to MONITOR BLOOD SUGAR - blood sugar diagnostic (BLOOD GLUCOSE TEST) test strip Test blood sugar(s) 4 times daily. Dx: Type 2 DM - Uncontrolled E11.65 Insulin: Yes. One Touch Test strips. - nystatin (MYCOSTATIN) cream Apply 1 application to affected area two times a day as needed. - atenolol (TENORMIN) 25 mg tablet Take 1 tablet by mouth once daily. As directed - Cane Use as directed for help with balance - Cholecalciferol, Vitamin D3, 125 mcg (5,000 unit) cap Take 1 capsule by mouth once daily. - DULoxetine (CYMBALTA) 30 mg capsule Take 1 capsule by mouth once daily. - omeprazole (PRILOSEC) 20 mg capsule Take 1 capsule by mouth daily before breakfast. 1/2 hr before meal. As directed. - insulin aspart U-100 (NOVOLOG FLEXPEN U-100 INSULIN) 100 unit/mL (3 mL) WITH FIRST BITE OF FOOD, 30 UNITS W/BREAKFAST, 30 UNITS W/LUNCH, 30 UNITS W/DINNER; MAY ADJUST WITH SLIDING SCALE GIVEN HIGH BLOOD SUGAR. Max dose 105 units per day - insulin glargine (LANTUS SOLOSTAR U-100 INSULIN) 100 unit/mL (3 mL) Inject 120 Units subcutaneously daily at bedtime. P (more content not included)... Normal [facility] 10-21-2024 GAURI Telephone (OBGYWM) -------- MALATHI ZAMBRANO ([id number]) 1970 F NFR Date Time Provider Department 10/21/24 JUANITA MENDOSA During your visit today, we recorded the following information about you: Nayla Gallegos, RIK 10/21/2024 9:29 AM Signed Pt last seen in our office 03/02/2021. Mirena IUD placed 01/27/2021 by DM. Patient calls stating she would like to have her IUD removed because for the past 4 years she has had nothing but problems with it. Pt voices that she is upset she isn't receiving reminders/ Wishes she would have gotten reminders of when annual FEATHER 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 exams were needed. States she has been seeing Dr. Macdonald [id number] and if not her, one of her assistants.However, she states she has had muscle cramping all over, vaginal odor, night sweats/hot flashes, sharp pains in ovaries. States unable to feel strings and just wants the IUD out because she feels it is causing too many problems. Pt has questions post IUD removal re: possibly getting hormone levels checked and what to expect afterwards. IUD order pending. New patient appt scheduled today with JG d/t pain associated with IUD in place. Please file and will attach to appt. RIK Salomon Tara, RN 10/21/2024 9:46 AM Signed Order linked to appt. Nayla Gallegos RN Allergies As of Date: 10/21/2024 Noted Allergy Reaction LOSARTAN 10/04/2020 5 - Intolerance Comments: dizziness; tried in the past; even lowest dose causes dizziness VICODIN (HYDROCODONE-ACETAMINOPH E*05/18/2009 8 - GI Upset AMLODIPINE 09/21/2020 5 - Intolerance Comments: Headache and stomach issues CODEINE ANTITUSSIVE COUGH 12/10/2014 8 - GI Upset LATEX 05/04/2005 2 - Rash Comments: reddness itching LISINOPRIL 09/21/2020 3 - Cough METFORMIN 8 - GI Upset Comments: GI upset RELAFEN (NABUMETONE) 03/29/2007 8 - GI Upset Date Reviewed: 09/12/2024 Reviewed by: Randee Bansal LPN - Fully Assessed Reason for Visit: IUD Removal [1950] Primary Visit Diagnosis:Encounter for IUD removal [Z30.432] Order(s):REMOVE INTRAUTERINE DEVICE [[id number]] Order #: [id number] Prescriptions as of 10/21/2024 - CPAP Continue APAP @ 13-20 cm of water with humidification. Mask (per patient preference) optional chin strap (if indicated) , filters, tubing, humidifier and lifetime supplies. EPR set at 3. (G47.33) ZHAO (obstructive sleep apnea). Needs new mask at least every 3 months and needs new mask now since current one is leaking. Also needs new headgear now since current one is loose. - fluconazole (DIFLUCAN) 150 mg tablet Take by mouth. Take at onset of yeast infection. Repeat after 5 to 7 days if ongoing symptoms. May treat recurrent episodes as needed. - montelukast (SINGULAIR) 10 mg tablet Take 1 tablet by mouth daily at bedtime. - ibuprofen (MOTRIN) 800 mg tablet Take 1 tablet by mouth every 8 hours as needed for pain. - cyclobenzaprine (FLEXERIL) 10 mg tablet Take 0.5-1 tablets by mouth two times a day as needed. - flash glucose sensor (FREESTYLE DUSTY 2 SENSOR) kit apply 1 SENSOR to back OF UPPER ARM REMOVE AND REPLACE every 14 days use with DEVICE to MONITOR BLOOD SUGAR - blood sugar diagnostic (BLOOD GLUCOSE TEST) test strip Test blood sugar(s) 4 times daily. Dx: Type 2 DM - Uncontrolled E11.65 Insulin: Yes. One Touch Test strips. - nystatin (MYCOSTATIN) cream Apply 1 application to affected area two times a day as needed. - atenolol (TENORMIN) 25 mg tablet Take 1 tablet by mouth once daily. As directed - Cane Use as directed for help with balance - Cholecalciferol, Vitamin D3, 125 mcg (5,000 unit) cap Take 1 capsule by mouth once daily. - DULoxetine (CYMBALTA) 30 mg capsule Take 1 capsule by mouth once daily. - omeprazole (PRILOSEC) 20 mg capsule Take 1 capsule by mouth daily before breakfast. 1/2 hr before meal. As directed. - insulin aspart U-100 (NOVOLOG FLEXPEN U-100 INSULIN) 100 unit/mL (3 mL) WITH FIRST BITE OF FOOD, 30 UNITS W/BREAKFAST, 30 UNITS W/LUNCH, 30 UNITS W/DINNER; MAY ADJUST WITH SLIDING SCALE GIVEN HIGH BLOOD SUGAR. Max dose 105 units per day - insulin glargine (LANTUS SOLOSTAR U-100 INSULIN) 100 unit/mL (3 mL) Inject 120 Units subcutaneously daily at bedtime. Please dispense 15 pens (3 boxes at a time). - Blood-Glucose Meter,Continuous ([employer] G7 BINDERY MACHINE TENDER) [facility] Use to check blood sugar at least four (4) times daily. - Blood-Glucose Sensor (DEXCOM G7 SENSOR) franklin Apply new sensor every ten (10) days. - Insulin [place], Disposable, (BD INSULIN PEN NEEDLE UF) 29 gauge x 1/2 Use 1 Needle For Each Dose 3-4 Times Daily With Novolog Pen For Meals and At Bedtime if Needed - fluticasone (FLOVENT HFA) 220 mcg/actuation inhaler Inhale 2 Puffs as instructed two times a day. - Blood-Glucose Meter (FREESTYLE LITE METER) monitoring kit Check blood sugars as directed for controlled Type 2 DM without complication - albuterol (more content not included)... Normal [facility] SerPl-aCncon 10-21-2024 Follitropin Qn 17.1 m[IU]/mL Normal See comment [facility] Comment on above: Order Comment: Speci men Type: BLOOD SPECIMEN [facility] Address: [address] [place] [id number] Result Comment: Refe rence range: Follicular: 3.5-12.5 mIU/mL Ovulation: 4.7-21.5 mIU/mL Luteal: 1.7-7.7 mIU/mL Postmenopausal: 25.8-134.8 mIU/mL Performed By: #### 5 8410-2 #### [facility] [id number] [address] [place] [address] CNOVon 09-12-2024 CNOV Office Visit (INTMWS ) -------- MALATHI ZAMBRANO ([id number]) 1970 F NFR Date Time Provider Department 09/12/24 4:40 PM AURORA MACDONALD INTMWS During your visit today, we recorded the following information about you: Temperature Pulse Respiration Blood pressure 98.9 degrees 75/minute 16/minute 118/62 Weight Height 130.1 kg 1.575 m Aurora Macdonald MD 09/12/2024 8:04 PM Signed This note was created using NoteWriter. Subjective Malathi Gusman Franki Briscoe is a 54 year old female. Patient presents with: Follow Up Malathi is a 54-year-old female with a history of asthma, ZHAO, and neuropathy, and Type 2 diabetes presenting for a montelukast refill and issues with CPAP supplies. Malathi reports that her montelukast prescription was not received by her pharmacy, [facility], and was informed that the prescription in July. She also reports issues with obtaining CPAP supplies from [facility], stating that she uses her CPAP machine 12-15 hours a day and goes through headgear and masks faster than usual. She was previously approved for more than one mask a year, but was told that the authorization in July. She has been unable to obtain additional supplies and has been using old headgear that she had to sew herself. She reports that she cannot afford to buy new supplies out of pocket due to financial constraints. Malathi also reports right knee pain and instability, as well as plantar fasciitis. She was supposed to have surgery for plantar fasciitis in July, but had to postpone it due to moving. She reports that her knee pain is mostly on the right side, but sometimes affects the left knee as well. She describes the pain as feeling like her leg is twisted and reports tenderness on the side of her knee. She wonders if the pain is related to her neuropathy. She also reports instability in the shower due to her knee and foot pain. Blood sugars have improved. Noted stressors with having to move because person who bought the place she was renting no longer would take [employer] so had to move out byjuly. In a better home in [place]. Discussed stressors with raising special needs son who will be 21. Daughter doing well overall--busy with college and work. Noted stressors with ex-hsuband. Discussed still tough since son Bernardino had and tragic circumstances--3 years coming up Worries about his daughter/her granddaughter. Malathi has a history of asthma, ZHAO, and neuropathy. She is currently taking montelukast for asthma and uses a CPAP machine for ZHAO. She also has a history of plantar fasciitis and is scheduled for surgery. PAST MEDICAL HISTORY Diagnosis Date Abdominal pain, left upper quadrant Abdominal pain, unspecified site Acquired spondylolisthesis 07/25/2010 Acute gastritis without mention of hemorrhage Arthritis Asthma ([facility]) Calcaneal spur 10/15/2009 COPD (chronic obstructive pulmonary disease) ([facility]) Cough DEPRESSIVE DISORDER NEC 06/15/2007 Depressive disorder, not elsewhere classified Diabetes mellitus without mention of complication Diabetes mellitus Diabetes mellitus without mention of complication Diabetes mellitus type 2 Displacement of lumbar intervertebral disc without myelopathy 12/30/2009 Esophageal reflux 10/01/2006 Esophagitis, unspecified Fibromyalgia 07/25/2010 Generalized anxiety disorder Anxiety, Generalized Hemorrhage of gastrointestinal tract, unspecified Hypertension Internal hemorrhoids without mention of complication Left carpal tunnel syndrome 09/11/2013 Lumbago 08/05/2008 Migraine 03/02/2009 Mixed stress and urge urinary incontinence Myalgia and myositis, unspecified Obesity, unspecified Obesity ZHAO (obstructive sleep apnea) 05/01/2011 uses C-PAP PMH - PAST MEDICAL HISTORY OF allergic syndrome; gets allergy shots PMH - PAST MEDICAL HISTORY OF bipolar Psoriasis and similar disorders Sleep apnea Spondylolysis, 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 Grissom saw in the past Vitamin D deficiency 11/29/2010 on calcitriol Current Outpatient Medications Medication Sig CPAP Continue APAP @ 13-20 cm of water with humidification. Mask (per patient preference) optional chin strap (if indicated) , filters, tubing, humidifier and lifetime supplies. EPR set at 3. (G47.33) ZHAO (obstructive sleep apnea). Needs new mask at least every 3 months and needs new mask now since current one is leaking. Also needs new headgear now since current one is loose. fluconazole (DIFLUCAN) 150 mg tablet Take by mouth. Take at onset of yeast infection. Repeat after 5 to 7 days if ongoing symptoms. May treat recurrent episodes as needed. montelukast (SINGULAIR) 10 mg tablet Take 1 tablet by mouth daily at bedtime. ibuprofen (MOTRIN) 800 mg tablet Take (more content not included)... Normal [facility] 25(OH)D3 [facility] 25-hydroxyvitamin D3 [Mass/Vol] 29.7 ng/mL Low 31.0-80.0 [facility] Comment on above: Order Comment: Speci men Type: BLOOD SPECIMEN Ordering Facility: [facility] Address: [address] [place] [address] [place] [address] Performed By: #### 5 8410-2 #### [facility] CLIA [id number] [address] [place] [address] [place] CBC panel Auto (Bld)on 09-10 Erythrocyte distribution width (RBC) [Ratio] 13.2 % Normal 11.5-15.0 [facility] Comment on above: Order Comment: Speci men Type: BLOOD SPECIMEN Ordering Facility: [facility] Address: [address] [place] [address] Performed By: #### 5 8410-2 #### [facility] CLIA [id number] [address] [place] [address] [place] Hematocrit (Bld) [Volume fraction] 42.2 % Normal 36.0-46.0 [facility] Comment on above: Order Comment: Speci men Type: BLOOD SPECIMEN Ordering Facility: [facility] Address: [address] [place] [address] Performed By: #### 5 8410-2 #### [id number] [address] [place] [address] [place] Hemoglobin (Bld) [Mass/Vol] 14.2 g/dL Normal 11.5-15.5 [facility] Comment on above: Order Comment: Speci men Type: BLOOD SPECIMEN Ordering Facility: [facility] Address: [address] [place] [address] Performed By: #### 5 8410-2 #### [facility] [id number] [address] [place] [address] [place] MCH (RBC) [Entitic mass] 30.5 pg Normal 26.0-34.0 [facility] Comment on above: Order Comment: Speci men Type: BLOOD SPECIMEN Ordering Facility: [facility] Address: [address] [place] [address] Performed By: #### 5 8410-2 #### [facility] [id number] [address] [place] [address] [place] MCHC (RBC) [Mass/Vol] 33.6 g/dL Normal 30.5-36.0 [facility] Comment on above: Order Comment: Speci men Type: BLOOD SPECIMEN Ordering Facility: [facility] Address: [address] [place] [address] Performed By: #### 5 8410-2 #### [facility] CLIA [id number] [address] [place] [address] [place] MCV (RBC) [Entitic vol] 90.8 fL Normal 80.0-100.0 [facility] Comment on above: Order Comment: Speci men Type: BLOOD SPECIMEN Ordering Facility: [facility] Address: [address] [place] [address] Performed By: #### 5 8410-2 #### [facility] CLIA [id number] [address] [place] [address] [place] Nucleated RBC (Bld) [#/Vol] 10*3/uL Normal <0.01 [facility] Comment on above: Order Comment: Speci men Type: BLOOD SPECIMEN Ordering Facility: [facility] Address: [address] [place] [address] Performed By: #### 5 8410-2 #### [facility] CLIA [id number] [address] [place] [address] [place] Platelet mean volume (Bld) [Entitic vol] 9.3 fL Normal 9.0-12.7 [facility] Comment on above: Order Comment: Speci men Type: BLOOD SPECIMEN Ordering Facility: [facility] Address: [address] [place] [address] Performed By: #### 5 8410-2 #### [facility] CLIA [id number] [address] [place] [address] [place] Platelets (Bld) [#/Vol] 211 10*3/uL Normal 150-400 [facility] Comment on above: Order Comment: Speci men Type: BLOOD SPECIMEN Ordering Facility: [facility] Address: [address] [place] [address] Performed By: #### 5 8410-2 #### [facility] CLIA [id number] [address] [place] [address] [place] RBC (Bld) [#/Vol] 4.65 10*6/uL Normal 3.90-5.20 [facility] Comment on above: Order Comment: Speci men Type: BLOOD SPECIMEN Ordering Facility: [facility] Address: [address] [place] [address] Performed By: #### 5 8410-2 #### [facility] CLIA [id number] [address] [place] [address] [place] WBC (Bld) [#/Vol] 8.48 10*3/uL Normal 3.70-11.00 [facility] Comment on above: Order Comment: Speci men Type: BLOOD SPECIMEN Ordering Facility: [facility] Address: [address] [place], [place] [address] Performed By: #### 5 8410-2 #### [facility] CLIA [id number] [address] [place] [address] [place] Comprehensive metabolic 2000 panelon 09-10-2024 Albumin [Mass/Vol] 4.1 g/dL Normal 3.9-4.9 [facility] Comment on above: Order Comment: Speci men Type: BLOOD SPECIMEN Ordering Facility: [facility] Address: [address] [place] [address] Performed By: #### 5 8410-2 #### [facility] CLIA [id number] [address] [place] [address] [place] ALP [Catalytic activity/Vol] 78 U/L Normal 34-123 [facility] Comment on above: Order Comment: Speci men Type: BLOOD SPECIMEN Ordering Facility: [facility] Address: [address] [place] [address] Performed By: #### 5 8410-2 #### [facility] [place] CLIA [id number] [address] [place] [address] [place] ALT [Catalytic activity/Vol] 20 U/L Normal 7-38 [facility] Comment on above: Order Comment: Speci men Type: BLOOD SPECIMEN Ordering Facility: [facility] Address: [address] [place] [address] Performed By: #### 5 8410-2 #### [facility] [place] CLIA [id number] [address] [place] [address] [place] Anion gap [Moles/Vol] 9 mmol/L Normal 8-15 [facility] Comment on above: Order Comment: Speci men Type: BLOOD SPECIMEN Ordering Facility: [facility] Address: [address] [place] [address] Performed By: #### 5 8410-2 #### [facility] CLIA [id number] [address] [place] [address] [place] AST [Catalytic activity/Vol] 20 U/L Normal 13-35 [facility] Comment on above: Order Comment: Speci men Type: BLOOD SPECIMEN Ordering Facility: [facility] Address: [address] [place], [place] [address] Performed By: #### 5 8410-2 #### [facility] CLIA [id number] [address] [place] [address] [place] Bilirubin [Mass/Vol] 0.5 mg/dL Normal 0.2-1.3 [facility] Comment on above: Order Comment: Speci men Type: BLOOD SPECIMEN Ordering Facility: [facility] Address: [facility] [place] [address] Performed By: #### 5 8410-2 #### [facility] CLIA [id number] [address] [place] [address] [place] Calcium [Mass/Vol] 9.8 mg/dL Normal 8.5-10.2 [facility] Comment on above: Order Comment: Speci men Type: BLOOD SPECIMEN Ordering Facility: [facility] Address: [facility] [place] [address] Performed By: #### 5 8410-2 #### [facility] CLIA [id number] [address] [place] [address] [place] Chloride [Moles/Vol] 104 mmol/L Normal 98-107 [facility] Comment on above: Order Comment: Speci men Type: BLOOD SPECIMEN Ordering Facility: [facility] Address: [address] [place] [address] Performed By: #### 5 8410-2 #### [facility] CLIA [id number] [address] [place] [address] [place] CO2 [Moles/Vol] 23 mmol/L Normal 22-30 [facility] Comment on above: Order Comment: Speci men Type: BLOOD SPECIMEN Ordering Facility: [facility] Address: [address] [place] [address] Performed By: #### 5 8410-2 #### [facility] CLIA [id number] [address] [place] [address] [place] Creatinine [Mass/Vol] 0.67 mg/dL Normal 0.58-0.96 [facility] Comment on above: Order Comment: Speci men Type: BLOOD SPECIMEN Ordering Facility: [facility] Address: [address] [place] [address] Performed By: #### 5 8410-2 #### [facility] CLIA [id number] [address] [place] [address] [place] Creatinine and Glomerular filtration rate.predicted panel (S/P/Bld) 103 mL/min/1.73m??? Normal >=60 [facility] Comment on above: Order Comment: Speci men Type: BLOOD SPECIMEN Ordering Facility: [facility] Address: [address] [place], [place] [address] Result Comment: Kinjal mated Glomerular Filtration Rate (eGFR) is calculated using the 2020 CKD-EPI creatinine equation. This equation utilizes serum creatinine, sex, and age as parameters. The creatinine assay has traceable calibration to isotope dilution-mass spectrometry. Refer to KDIGO guidelines for clinical interpretation. In patients with unstable renal function, e.g. those with acute kidney injury, the eGFR may not accurately reflect actual GFR. Performed By: #### 5 8410-2 #### [facility] CLIA [id number] [address] [place] [address] [place] Glucose [Mass/Vol] 196 mg/dL High 74-99 [facility] Comment on above: Order Comment: Gloria akhtar Type: BLOOD SPECIMEN Ordering Facility: [facility] Address: [address] [place] [address] Result Comment: The [place] Diabetes Association (ADA) provides guidance for cutoff values for fasting glucose and random glucose. The ADA defines fasting as no caloric intake for at least 8 hours. Fasting plasma glucose results between 100 to 125 mg/dL indicate increased risk for diabetes (prediabetes). Fasting plasma glucose results greater than or equal to 126 mg/dL meet the criteria for diagnosis of diabetes. In the absence of unequivocal hyperglycemia, results should be confirmed by repeat testing. In a patient with classic symptoms of hyperglycemia or hyperglycemic crisis, random plasma glucose results greater than or equal to 200 mg/dL meet the criteria for diagnosis of diabetes. Reference: Standards of Medical Care in Diabetes 2016, [place] Diabetes Association. Diabetes Care. 2016.39(Suppl 1). Performed By: #### 5 8410-2 #### [facility] CLIA [id number] [address] [place] [address] [place] Potassium [Moles/Vol] 4.2 mmol/L Normal 3.7-5.1 [facility] Comment on above: Order Comment: Gloria akhtar Type: BLOOD SPECIMEN Ordering Facility: [facility] Address: [address] [place] [address] Performed By: #### 5 8410-2 #### [facility] CLIA [id number] [address] [place] [address] [place] Protein [Mass/Vol] 7.2 g/dL Normal 6.3-8.0 [facility] Comment on above: Order Comment: Speci men Type: BLOOD SPECIMEN Ordering Facility: [facility] Address: [address] [place] [address] Performed By: #### 5 8410-2 #### [facility] CLIA [id number] [address] [place] [address] [place] Sodium [Moles/Vol] 136 mmol/L Normal 136-144 [facility] Comment on above: Order Comment: Speci men Type: BLOOD SPECIMEN Ordering Facility: [facility] Address: [address] [place] [address] Performed By: #### 5 8410-2 #### [id number] [address] [place] [address] [place] Urea nitrogen [Mass/Vol] 13 mg/dL Normal 7-21 [facility] Comment on above: Order Comment: Speci men Type: BLOOD SPECIMEN Ordering Facility: [facility] Address: [address] [place] [address] Performed By: #### 5 8410-2 #### [facility] [id number] [address] [place] [address] [place] HbA1c (Bld)on 09-10-2024 Average glucose Estimated from glycated hemoglobin (Bld) [Mass/Vol] 148 mg/dL Normal [facility] Comment on above: Order Comment: Speci men Type: BLOOD SPECIMEN Ordering Facility: [facility] Address: [address] [place] [address] Result Comment: eAG: (Estimated average glucose) is a calculated value from HgbA1c and is merchandiser retail representative of the average blood glucose level in the last 2-3 month period. Performed By: #### 5 8410-2 #### [facility] [id number] [address] [place], [place] [address] [place] HbA1c (Bld) [Mass fraction] 6.8 % High 4.3-5.6 [facility] Comment on above: Order Comment: Gloria akhtar Type: BLOOD SPECIMEN Ordering Facility: [facility] Address: [address] [place] [address] Result Comment: Amer [place] Diabetes Association guidelines indicate that patients with HgbA1c in the range 5.7-6.4% are at increased risk for development of diabetes, and intervention by lifestyle modification may be beneficial. HgbA1c greater or equal to 6.5% is considered diagnostic of diabetes. Performed By: #### 5 8410-2 #### [facility] CLIA [id number] [address] [place] [address] [place] Magnesium SerPl-mCncon 09-10 Magnesium [Mass/Vol] 2.1 mg/dL Normal 1.7-2.3 [facility] Comment on above: Order Comment: Glorai akhtar Type: BLOOD SPECIMENOrdering Facility: [facility] Address: [address] [place] [address] Performed By: #### 1 9123-9, 35896-9 ####[facility] [id number] [place] [address] [place] [facility] MALATHI ZAMBRANO ([id number]) 1970 F NFR Date Time Provider Department 06/13/24 [facility] INTMWS During your visit today, we recorded the following information about you: Pari Oliver RN 06/13/2024 12:37 PM Signed Patient calls to report that she needs a new order for PT for water walking sent to [facility] [facility]. Patient reports she was in to see provider in May 2024 and so much was discussed she doesn't recall if she requested the order at that time. The order from August of 2023 is no longer valid on their end. Pended previous order with the addition of left foot pain per patient request. Please fax order to [phone] Call patient at [phone] once provider reviews and advises. RIK Batista Elizabeth, MA 06/18/2024 11:03 AM Signed Order faxed to [phone] and patient was notified Katie Moran MA Allergies As of Date: 06/13/2024 Noted Allergy Reaction LOSARTAN 10/04/2020 5 - Intolerance Comments: dizziness; tried in the past; even lowest dose causes dizziness VICODIN (HYDROCODONE-ACETAMINOPH E*05/18/2009 8 - GI Upset AMLODIPINE 09/21/2020 5 - Intolerance Comments: Headache and stomach issues CODEINE ANTITUSSIVE COUGH 12/10/2014 8 - GI Upset LATEX 05/04/2005 2 - Rash Comments: reddness itching LISINOPRIL 09/21/2020 3 - Cough METFORMIN 8 - GI Upset Comments: GI upset RELAFEN (NABUMETONE) 03/29/2007 8 - GI Upset Date Reviewed: 05/07/2024 Reviewed by: Kera Madrid LPN - Fully Assessed Reason for Visit: Orders [681] Primary Visit Diagnosis:Chronic pain of right knee [M25.561, G89.29] Other Visit Diagnoses:Primary osteoarthritis of right knee [M17.11] Right foot pain [M79.671] Left foot pain [M79.672] Order(s):CONSULT TO PHYSICAL THERAPY [9032] Order #: [id number]: 1 FUTURE Prescriptions as of 06/18/2024 - blood sugar diagnostic (BLOOD GLUCOSE TEST) test strip Test blood sugar(s) 4 times daily. Dx: Type 2 DM - Uncontrolled E11.65 Insulin: Yes. One Touch Test strips. - nystatin (MYCOSTATIN) cream Apply 1 application to affected area two times a day as needed. - atenolol (TENORMIN) 25 mg tablet Take 1 tablet by mouth once daily. As directed - Cane Use as directed for help with balance - Cholecalciferol, Vitamin D3, 125 mcg (5,000 unit) cap Take 1 capsule by mouth once daily. - DULoxetine (CYMBALTA) 30 mg capsule Take 1 capsule by mouth once daily. - montelukast (SINGULAIR) 10 mg tablet Take 1 tablet by mouth daily at bedtime. - omeprazole (PRILOSEC) 20 mg capsule Take 1 capsule by mouth daily before breakfast. 1/2 hr before meal. As directed. - insulin aspart U-100 (NOVOLOG FLEXPEN U-100 INSULIN) 100 unit/mL (3 mL) WITH FIRST BITE OF FOOD, 30 UNITS W/BREAKFAST, 30 UNITS W/LUNCH, 30 UNITS W/DINNER; MAY ADJUST WITH SLIDING SCALE GIVEN HIGH BLOOD SUGAR. Max dose 105 units per day - insulin glargine (LANTUS SOLOSTAR U-100 INSULIN) 100 unit/mL (3 mL) Inject 120 Units subcutaneously daily at bedtime. Please dispense 15 pens (3 boxes at a time). - Blood-Glucose Meter,Continuous (DEXCOM G7 BINDERY MACHINE TENDER) [facility] Use to check blood sugar at least four (4) times daily. - Blood-Glucose Sensor (DEXCOM G7 SENSOR) franklin Apply new sensor every ten (10) days. - flash glucose sensor (FREESTYLE DUSTY 2 SENSOR) kit apply 1 SENSOR to back OF UPPER ARM REMOVE AND REPLACE every 14 days use with DEVICE to MONITOR BLOOD SUGAR - Insulin [place], Disposable, (BD INSULIN PEN NEEDLE UF) 29 gauge x 1/2 Use 1 Needle For Each Dose 3-4 Times Daily With Novolog Pen For Meals and At Bedtime if Needed - fluticasone (FLOVENT HFA) 220 mcg/actuation inhaler Inhale 2 Puffs as instructed two times a day. - flaxseed oil (OMEGA 3 ORAL) Take by mouth. - Blood-Glucose Meter (FREESTYLE LITE METER) monitoring kit Check blood sugars as directed for controlled Type 2 DM without complication - CPAP ContinueAPAP @ 13-20 cm of water with humidification. Mask (per patient preference) optional chin strap (if indicated) , filters, tubing, humidifier and lifetime supplies. EPR set at 3. (G47.33) ZHAO (obstructive sleep apnea). Needs new mask at least every 3 months and needs new mask now since current one is leaking. Also needs new headgear now since current one is loose. - albuterol HFA (VENTOLIN HFA) 90 mcg/actuation inhaler Inhale 2 Puffs as instructed every 4 hours as needed for wheezing/shortness of breath. - albuterol (PROVENTIL) 2.5 mg /3 mL (0.083 %) nebulizer solution Use 3 mL via nebulizer every 4 hours as needed for wheezing/shortness of breath. Use over 5-15minutes. - cyclobenzaprine (FLEXERIL) 10 mg tablet Take 0.5-1 tablets by mouth twice daily as needed. - hydroCHLOROthiazide (HYDRODIURIL, ESIDRIX) 25 mg tablet Take 1 tablet by mouth once daily. As needed for swelling from fluid retention - fluconazole (D (more content not included)... Normal [facility] 25(OH)D3 [facility] 25-hydroxyvitamin D3 [Mass/Vol] 26.2 ng/mL Low 31.0-80.0 [facility] Comment on above: Order Comment: Speci giovana Type: BLOOD SPECIMENOrdering Facility: [facility] Address: [address] [place] [address] Result Comment: Clas sification of 25 [place] Vitamin D status: Deficiency/Insufficiency: < or = 30 ng/ml. Sufficiency/Optimal Levels: 31-80 ng/mL Toxicity: > 100 ng/mL. Test performed by chemiluminescent immunoassay. Performed By: #### 1 989-3 ####[facility] [id number] [facility] [id number] [address] [place] CBC panel Auto (Bld)on 05-10 Erythrocyte distribution width (RBC) [Ratio] 13.2 % Normal 11.5-15.0 [facility] Comment on above: Order Comment: Gloria akhtar Type: BLOOD SPECIMEN Ordering Facility: [facility] Address: [address] [place] [address] Performed By: #### 5 8410-2 #### [facility] CLIA [id number] [address] [place] [address] [place] Hematocrit (Bld) [Volume fraction] 44.3 % Normal 36.0-46.0 [facility] Comment on above: Order Comment: Speci men Type: BLOOD SPECIMEN Ordering Facility: [facility] Address: [address] [place] [address] Performed By: #### 5 8410-2 #### [facility] CLIA [id number] [address] [place] [address] [place] Hemoglobin (Bld) [Mass/Vol] 14.9 g/dL Normal 11.5-15.5 [facility] Comment on above: Order Comment: Speci men Type: BLOOD SPECIMEN Ordering Facility: [facility] Address: [address] [place] [address] Performed By: #### 5 8410-2 #### [id number] [address] [place] [address] [place] MCH (RBC) [Entitic mass] 31.6 pg Normal 26.0-34.0 [facility] Comment on above: Order Comment: Speci men Type: BLOOD SPECIMEN Ordering Facility: [facility] Address: [address] [place] [address] Performed By: #### 5 8410-2 #### [facility] [id number] [address] [place] [address] [place] MCHC (RBC) [Mass/Vol] 33.6 g/dL Normal 30.5-36.0 [facility] Comment on above: Order Comment: Speci men Type: BLOOD SPECIMEN Ordering Facility: [facility] Address: [address] [place] [address] Performed By: #### 5 8410-2 #### [facility] CLIA [id number] [address] [place] [address] [place] MCV (RBC) [Entitic vol] 93.9 fL Normal 80.0-100.0 [facility] Comment on above: Order Comment: Speci men Type: BLOOD SPECIMEN Ordering Facility: [facility] Address: [address] [place] [address] Performed By: #### 5 8410-2 #### [facility] CLIA [id number] [address] [place] [address] [place] Nucleated RBC (Bld) [#/Vol] 10*3/uL Normal <0.01 [facility] Comment on above: Order Comment: Speci men Type: BLOOD SPECIMEN Ordering Facility: [facility] Address: [address] [place] [address] Performed By: #### 5 8410-2 #### [facility] CLIA [id number] [address] [place] [address] [place] Platelet mean volume (Bld) [Entitic vol] 9.3 fL Normal 9.0-12.7 [facility] Comment on above: Order Comment: Speci men Type: BLOOD SPECIMEN Ordering Facility: [facility] Address: [address] [place] [address] Performed By: #### 5 8410-2 #### [facility] CLIA [id number] [address] [place] [address] [place] Platelets (Bld) [#/Vol] 210 10*3/uL Normal 150-400 [facility] Comment on above: Order Comment: Speci men Type: BLOOD SPECIMEN Ordering Facility: [facility] Address: [address] [place] [address] Performed By: #### 5 8410-2 #### [facility] CLIA [id number] [address] [place] [address] [place] RBC (Bld) [#/Vol] 4.72 10*6/uL Normal 3.90-5.20 [facility] Comment on above: Order Comment: Speci men Type: BLOOD SPECIMEN Ordering Facility: [facility] Address: [address] [place] [address] Performed By: #### 5 8410-2 #### [facility] CLIA [id number] [address] [place] [address] [place] WBC (Bld) [#/Vol] 8.60 10*3/uL Normal 3.70-11.00 [facility] Comment on above: Order Comment: Speci men Type: BLOOD SPECIMEN Ordering Facility: [facility] Address: [address] [place], [place] [address] Performed By: #### 5 8410-2 #### [facility] CLIA [id number] [address] [place] [address] [place] Comprehensive metabolic 2000 panelon 05-10-2024 Albumin [Mass/Vol] 4.2 g/dL Normal 3.9-4.9 [facility] Comment on above: Order Comment: Speci men Type: BLOOD SPECIMEN Ordering Facility: [facility] Address: [address] [place] [address] Performed By: #### 5 8410-2 #### [facility] CLIA [id number] [address] [place] [address] [place] ALP [Catalytic activity/Vol] 90 U/L Normal 34-123 [facility] Comment on above: Order Comment: Speci men Type: BLOOD SPECIMEN Ordering Facility: [facility] Address: [address] [place], [place] [address] Performed By: #### 5 8410-2 #### [facility] CLIA [id number] [address] [place] [address] [place] ALT [Catalytic activity/Vol] 25 U/L Normal 7-38 [facility] Comment on above: Order Comment: Speci men Type: BLOOD SPECIMEN Ordering Facility: [facility] Address: [address] [place], [place] [address] Performed By: #### 5 8410-2 #### [facility] CLIA [id number] [address] [place] [address] [place] Anion gap [Moles/Vol] 13 mmol/L Normal 8-15 [facility] Comment on above: Order Comment: Speci men Type: BLOOD SPECIMEN Ordering Facility: [facility] Address: [address] [place] [address] Performed By: #### 5 8410-2 #### [facility] CLIA [id number] [address] [place] [address] [place] AST [Catalytic activity/Vol] 23 U/L Normal 13-35 [facility] Comment on above: Order Comment: Speci men Type: BLOOD SPECIMEN Ordering Facility: [facility] Address: [address] [place] [address] Performed By: #### 5 8410-2 #### [facility] CLIA [id number] [address] [place] [address] [place] Bilirubin [Mass/Vol] 0.4 mg/dL Normal 0.2-1.3 [facility] Comment on above: Order Comment: Speci men Type: BLOOD SPECIMEN Ordering Facility: [facility] Address: [address] [place] [address] Performed By: #### 5 8410-2 #### [facility] CLIA [id number] [address] [place] [address] [place] Calcium [Mass/Vol] 9.4 mg/dL Normal 8.5-10.2 [facility] Comment on above: Order Comment: Speci men Type: BLOOD SPECIMEN Ordering Facility: [facility] Address: [address] [place] [address] Performed By: #### 5 8410-2 #### [facility] CLIA [id number] [address] [place] [address] [place] Chloride [Moles/Vol] 103 mmol/L Normal 98-107 [facility] Comment on above: Order Comment: Speci men Type: BLOOD SPECIMEN Ordering Facility: [facility] Address: [address] [place] [address] Performed By: #### 5 8410-2 #### [facility] CLIA [id number] [address] [place] [address] [place] CO2 [Moles/Vol] 24 mmol/L Normal 22-30 [facility] Comment on above: Order Comment: Speci men Type: BLOOD SPECIMEN Ordering Facility: [facility] Address: [address] [place] [address] Performed By: #### 5 8410-2 #### [facility] CLIA [id number] [address] [place] [address] [place] Creatinine [Mass/Vol] 0.69 mg/dL Normal 0.58-0.96 [facility] Comment on above: Order Comment: Speci men Type: BLOOD SPECIMEN Ordering Facility: [facility] Address: [address] [place] [address] Performed By: #### 5 8410-2 #### [facility] [id number] [address] [place] [address] [place] Creatinine and Glomerular filtration rate.predicted panel (S/P/Bld) 103 mL/min/1.73m??? Normal >=60 [facility] Comment on above: Order Comment: Speci men Type: BLOOD SPECIMEN Ordering Facility: [facility] Address: [address] [place] [address] Result Comment: Kinjal mated Glomerular Filtration Rate (eGFR) is calculated using the 2020 CKD-EPI creatinine equation. This equation utilizes serum creatinine, sex, and age as parameters. The creatinine assay has traceable calibration to isotope dilution-mass spectrometry. Refer to KDIGO guidelines for clinical interpretation. In patients with unstable renal function, e.g. those with acute kidney injury, the eGFR may not accurately reflect actual GFR. Performed By: #### 5 8410-2 #### [facility] CLIA [id number] [address] [place] [address] [place] Glucose [Mass/Vol] 205 mg/dL High 74-99 [facility] Comment on above: Order Comment: Gloria akhtar Type: BLOOD SPECIMEN Ordering Facility: [facility] Address: [address] [place] [address] Result Comment: The [place] Diabetes Association (ADA) provides guidance for cutoff values for fasting glucose and random glucose. The ADA defines fasting as no caloric intake for at least 8 hours. Fasting plasma glucose results between 100 to 125 mg/dL indicate increased risk for diabetes (prediabetes). Fasting plasma glucose results greater than or equal to 126 mg/dL meet the criteria for diagnosis of diabetes. In the absence of unequivocal hyperglycemia, results should be confirmed by repeat testing. In a patient with classic symptoms of hyperglycemia or hyperglycemic crisis, random plasma glucose results greater than or equal to 200 mg/dL meet the criteria for diagnosis of diabetes. Reference: Standards of Medical Care in Diabetes 2016, [place] Diabetes Association. Diabetes Care. 2016.39(Suppl 1). Performed By: #### 5 8410-2 #### [facility] [id number] [address] [place] [address] [place] Potassium [Moles/Vol] 4.5 mmol/L Normal 3.7-5.1 [facility] Comment on above: Order Comment: Gloria akhtar Type: BLOOD SPECIMEN Ordering Facility: [facility] Address: [address] [place] [address] Performed By: #### 5 8410-2 #### [facility] [id number] [address] [place] [address] [place] Protein [Mass/Vol] 7.3 g/dL Normal 6.3-8.0 [facility] Comment on above: Order Comment: Gloria akhtar Type: BLOOD SPECIMEN Ordering Facility: [facility] Address: [address] [place], [place] [address] Performed By: #### 5 8410-2 #### [facility] CLIA [id number] [address] [place] [address] [place] Sodium [Moles/Vol] 140 mmol/L Normal 136-144 [facility] Comment on above: Order Comment: Gloria men Type: BLOOD SPECIMEN Ordering Facility: [facility] Address: [address] [place] [address] Performed By: #### 5 8410-2 #### [facility] CLIA [id number] [address] [place] [address] [place] Urea nitrogen [Mass/Vol] 13 mg/dL Normal 7-21 [facility] Comment on above: Order Comment: Dashi men Type: BLOOD SPECIMEN Ordering Facility: [facility] Address: [address] [place] [address] Performed By: #### 5 8410-2 #### [facility] [id number] [address] [place] [address] [place] HbA1c (Bld)on 05-10-2024 Average glucose Estimated from glycated hemoglobin (Bld) [Mass/Vol] 163 mg/dL Normal [facility] Comment on above: Order Comment: Gloria men Type: BLOOD SPECIMENOrdering Facility: [facility] Address: [address] [place] [address] Result Comment: eAG: (Estimated average glucose) is a calculated value from HgbA1c and is merchandiser retail representative of the average blood glucose level in the last 2-3 month period. Performed By: #### 5 5454-3 ####[facility] LABCLIA [id number] [facility] [id number] [place] [address] [place] HbA1c (Bld) [Mass fraction] 7.3 % High 4.3-5.6 [facility] Comment on above: Order Comment: Gloria men Type: BLOOD SPECIMENOrdering Facility: [facility] Address: [address] [place] [address] Result Comment: [place] Diabetes Association guidelines indicate that patients with HgbA1c in the range 5.7-6.4% are at increased risk for development of diabetes, and intervention by lifestyle modification may be beneficial. HgbA1c greater or equal to 6.5% is considered diagnostic of diabetes. Performed By: #### 5 5454-3 ####[facility] LABCLIA [id number] [id number] [id number] [place] Magnesium SerPl-mCncon 05-10 Magnesium [Mass/Vol] 2.2 mg/dL Normal 1.7-2.3 [facility] Comment on above: Order Comment: Speci men Type: BLOOD SPECIMEN Ordering Facility: [facility] Address: [address] [place] [id number] Performed By: #### 5 8410-2 #### [facility] CLIA [id number] [address] [place] [address] [place] CNOVon 05-07-2024 CNOV Office Visit (INTMWS ) -------- MALATHI ZAMBRANO ([id number]) 1970 F NFR Date Time Provider Department 05/07/24 3:40 PM AURORA MACDONALD INTMWS During your visit today, we recorded the following information about you: Temperature Pulse Respiration Blood pressure 98.1 degrees 83/minute 16/minute 109/70 Weight 134 kg Aurora Macdonald MD 06/05/2024 11:34 PM Signed This note was created using [email or web address]. Subjective Malathi Zambrano is a 54 year old female. No chief complaint on file. SUBJECTIVE: Malathi Zambrano is a 54 year old year old lady here today for 4 month follow up appointment for review of medical conditions. Malathi Zambrano is a 54-year-old female with a history of DM, presenting for follow-up. Malathi reports a recent onset of severe pain between the shoulder blades after raising her arms above her head for the past few days. She describes the pain as excruciating and notes that it feels like something's disconnected. She also experiences muscle spasms throughout her body, which began in her late 20s and have been constant since. She has been using a massager to alleviate the spasms, which has provided some relief. She is currently taking magnesium and vitamin D supplements. She also reports constipation. Two months ago, she visited the ER due to an inability to move her neck up or down and severe pain in her shoulder. She was evaluated for a lumbar puncture but declined the procedure. She was prescribed tramadol, which helped with the pain but caused dizziness and mild fatigue. She still has approximately 10 pills remaining. She also used a massager to alleviate the pain, which provided significant relief. She has a history of chiropractic adjustments for pelvic and neck issues, but her chiropractor retired 12 years ago. Malathi also reports severe headaches associated with her CPAP use. She describes the headaches as starting above her ears and feeling like her head is in a vice. She has tried multiple CPAP masks and adjustments without relief. She is a mouth breather and has not tried nasal pillows. She wears her CPAP from the moment she gets into bed due to difficulty breathing while lying down. She reports that the headgear wears out quickly and she has had issues with her supplier, [employer], in getting replacements. Malathi also reports numbness in her toes and fingers, as well as intense itching, which she suspects may be early-stage neuropathy. Her last A1c was 7.8. She has been experiencing pain in her left foot due to plantar fasciitis and a bone spur, for which she received a cortisone injection a couple of months ago. She is concerned that her A1c may have increased. Malathi is also interested in weight loss options and has tried Ozempic in the past. She is considering bariatric surgery and is seeking guidance on diet and exercise. She has difficulty exercising due to pain and is looking for alternative options. She is also interested in consulting with an injection molding supervisor for her diabetes management and for her son, who is also diabetic. PAST MEDICAL HISTORY Diagnosis Date Abdominal pain, left upper quadrant Abdominal pain, unspecified site Acquired spondylolisthesis 07/25/2010 Acute gastritis without mention of hemorrhage Arthritis Asthma Calcaneal spur 10/15/2009 COPD (chronic obstructive pulmonary disease) (HCC) Cough DEPRESSIVE DISORDER NEC 06/15/2007 Depressive disorder, not elsewhere classified Diabetes mellitus without mention of complication Diabetes mellitus Diabetes mellitus without mention of complication Diabetes mellitus type 2 Displacement of lumbar intervertebral disc without myelopathy 12/30/2009 Esophageal reflux 10/01/2006 Esophagitis, unspecified Fibromyalgia 07/25/2010 Generalized anxiety disorder Anxiety, Generalized Hemorrhage of gastrointestinal tract, unspecified Hypertension Internal hemorrhoids without mention of complication Left carpal tunnel syndrome 09/11/2013 Lumbago 08/05/2008 Migraine 03/02/2009 Mixed stress and urge urinary incontinence Myalgia and myositis, unspecified Obesity, unspecified Obesity ZHAO (obstructive sleep apnea) 05/01/2011 uses C-PAP PMH - PAST MEDICAL HISTORY OF allergic syndrome; gets allergy shots PMH - PAST MEDICAL HISTORY OF bipolar Psoriasis and similar disorders Sleep apnea Spondylolysis, 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 Grissom saw in the past Vitamin D deficiency 11/29/2010 on calcitriol Current Outpatient Medications Medication Sig atenolol (TENORMIN) 25 mg tablet Take 1 tablet by mouth once daily. As directed Cane Use as directed for help with balance Cholecalciferol, Vitamin D3, 125 mcg (5,000 unit) cap Take 1 capsule by mouth once da (more content not included)... Normal [facility] CNOVon 01-11-2024 CNOV Office Visit (INTMWS ) -------- MALATHI ZAMBRANO ([id number]) 1970 F NFR Date Time Provider Department 01/11/24 2:00 PM AURORA MACDONALD INTMWS During your visit today, we recorded the following information about you: Temperature Pulse Respiration Blood pressure 98.1 degrees 79/minute 16/minute 118/72 Weight 130.8 kg Aurora Macdonald MD 01/12/2024 12:16 AM Signed This note was created using NoteWriter. Subjective Malathi M Abu Al Habil is a 53 year old female. Patient presents with: F/U 4 month SUBJECTIVE: Malathi Zambrano is a 53 year old year old lady here today for 4 month follow up appointment for review of medical conditions. Controlled type 2 diabetes mellitus without complication, with long-term current use of insulin (HCC): - Patient uses a CGM and insulin for management. - Discussed potential switch to Dexcom G7 for better adhesive properties and smaller size compared to current Freestyle Dusty 2. - Continue current insulin regimen and monitor blood glucose levels. Class 3 severe obesity due to excess calories with body mass index (BMI) of 50.0 to 59.9 in adult, unspecified whether serious comorbidity present (HCC): - Patient's weight has decreased since the last visit. - Encouraged continuation of current dietary habits, focusing on vegetable intake and reduced carbohydrate consumption. - Discussed the importance of regular physical activity as tolerated. Primary osteoarthritis of right knee: - Chronic, managed with current treatment. - Discussed importance of weight management and physical therapy to reduce strain on the knee. Abnormal mammogram: - Patient had an abnormal mammogram requiring further imaging. - Ordered a diagnostic ultrasound of the left breast to further investigate the findings. Palpitations: - Patient experiences chest pains and palpitations, potentially related to CPAP use. - Advised patient to keep a log of episodes to correlate with CPAP use data. - Monitor symptoms and consider further evaluation if episodes increase in frequency or severity. Essential hypertension: - Chronic, managed with current treatment. - Continue monitoring blood pressure and adherence to medication regimen. Vitamin D deficiency: - Patient takes 5,000 units of vitamin D daily. - No changes recommended at this time. Tachycardia: - Patient experiences episodes of tachycardia, potentially related to CPAP use. - Advised patient to keep a log of episodes to correlate with CPAP use data. - Monitor symptoms and consider further evaluation if episodes increase in frequency or severity. Displacement of lumbar intervertebral disc without myelopathy: - Chronic, managed with current treatment. - Discussed importance of maintaining proper posture and avoiding activities that may exacerbate symptoms. Spondylolysis, lumbosacral: - Chronic, managed with current treatment. - Discussed importance of maintaining proper posture and avoiding activities that may exacerbate symptoms. Lumbago: - Chronic, managed with current treatment. - Discussed importance of maintaining proper posture and avoiding activities that may exacerbate symptoms. Left foot pain: - Chronic, managed with current treatment. - Discussed importance of wearing appropriate footwear and considering orthotic devices to alleviate pain. Encounter for long-term current use of medication: - Patient is on multiple long-term medications for various chronic conditions. - Reviewed medication list and made necessary adjustments to ensure optimal management of conditions. PAST MEDICAL HISTORY No date: Abdominal pain, left upper quadrant No date: Abdominal pain, unspecified site 07/25/2010: Acquired spondylolisthesis No date: Acute gastritis without mention of hemorrhage No date: Arthritis No date: Asthma 10/15/2009: Calcaneal spur No date: COPD (chronic obstructive pulmonary disease) (HCC) No date: Cough 06/15/2007: DEPRESSIVE DISORDER NEC No date: Depressive disorder, not elsewhere classified No date: Diabetes mellitus without mention of complication Comment: Diabetes mellitus No date: Diabetes mellitus without mention of complication Comment: Diabetes mellitus type 2 12/30/2009: Displacement of lumbar intervertebral disc without myelopathy 10/01/2006: Esophageal reflux No date: Esophagitis, unspecified 07/25/2010: Fibromyalgia No date: Generalized anxiety disorder Comment: Anxiety, Generalized No date: Hemorrhage of gastrointestinal tract, unspecified No date: Hypertension No date: Internal hemorrhoids without mention of complication 09/11/2013: Left carpal tunnel syndrome 08/05/2008: Lumbago 03/02/2009: Migraine No date: Mixed stress and urge urinary incontinence No date: Myalgia and myositis, unspecified No date: Obesity, unspecified Comment: Obesity 05/01/2011: (more content not included)... Normal [facility] URINE CULTUREon 06-15-2023 Bacteria identified Cx Nom (U) 10,000 -<50,000 CFU/ml Normal urogenital [place] [facility] Urinalysis complete panel (U )on 06-14-2023 Bacteria LM.HPF (Urine sed) [#/Area] Negative Negative /HPF [facility] Bilirubin Ql (U) Negative Negative [facility] Clarity (Unsp spec) Clear Clear [facility] Color (U) Yellow Yellow [facility] Epithelial cells LM.HPF (Urine sed) [#/Area] Few [facility] Glucose Test strip (U) [Mass/Vol] Negative Negative [facility] Hemoglobin Ql (U) Negative Negative [facility] Hyaline casts (Urine sed) [#/Area] 0 /[LPF] 0 /LPF [facility] Ketones Ql (U) Negative Negative [facility] Leukocyte esterase Test strip Ql (U) Negative Negative [facility] Nitrite Ql (U) Negative Negative [facility] pH (U) 6.0 [pH] <8.5 [facility] Protein (U) [Mass/Vol] Negative Negative [facility] RBC LM.HPF (Urine sed) [#/Area] 0-2 /HPF 0-2 /HPF [facility] Specific gravity (U) [Rel density] 1.006 1.005 - 1.030 [facility] Urobilinogen Ql (U) 0.2 EU/dL 0.2-1.0 EU/dL Cl [facility] WBC LM.HPF (Urine sed) [#/Area] 0-5 /HPF 0-5 /HPF [facility] UA DIP, URINE (POC)on 2023 BILIRUBIN UA (POCT) Negative Negative [facility] CLARITY UA (POCT) Clear [facility] COLOR UA (POCT) Yellow [facility] GLUCOSE UA (POCT) Negative Negative mg/dL [facility] Hemoglobin Ql (U) Negative Negative [facility] KETONE UA (POCT) Negative Negative mg/dL [facility] LEUKOCYTES UA (POCT) Negative Negative [facility] NITRITE UA (POCT) Negative Negative [facility] PH UA (POCT) 6.0 4.5 - 8.0 [facility] Protein Ql (U) Negative Negative mg/dL [facility] SPECIFIC GRAVITY UA (POCT) 1.010 1.005 - 1.030 [facility] UROBILINOGEN UA (POCT) 0.2 E.U./dL Normal E.U./dL [facility] XR Knee - right 4 Viewson IMPRESSION: Findings as discussed in results portion of report Lithographed Plate Inspector: RTICIAB Transcribe Date/Time: Jun 06 2023 9:16A Dictated by : NEVILLE HANSEN DO This examination was interpreted and the report reviewed and electronically signed by: NEVILLE HANSEN DO on Jun 06 2023 9:19AM [facility] * * *Final Report* * * DATE OF EXAM: Jun 05 2023 1:47PM KACY 5203 - XR KNEE 4V AP/PA BOTH+LAT/JESSEE RT / PROCEDURE REASON: M25.561-Right knee pain, unspecified chronicity * * * * Physician Interpretation * * * * EXAM(s): XR KNEE 4V AP/PA BOTH+LAT/JESSEE RT EXAM DATE/TIME: 06/05/2023 1:47 PM HISTORY: 53 years old Clinical information: Right knee pain, unspecified chronicity RIGHT KNEE PAIN TECHNIQUE: Images: XR KNEE 4V AP/PA BOTH+LAT/JESSEE RT Comparison: None. RESULT: Findings: Bilateral findings. Moderate narrowing of the medial compartments Right :No fractures or dislocations are seen. Left :No fractures or dislocations are seen. [facility] * * *Final Report* * * DATE OF EXAM: Jun 05 2023 1:47PM KACY 5203 - XR KNEE 4V AP/PA BOTH+LAT/JESSEE RT / PROCEDURE REASON: M25.561-Right knee pain, unspecified chronicity * * * * Physician Interpretation * * * * EXAM(s): XR KNEE 4V AP/PA BOTH+LAT/JESSEE RT EXAM DATE/TIME: 06/05/2023 1:47 PM HISTORY: 53 years old Clinical information: Right knee pain, unspecified chronicity RIGHT KNEE PAIN TECHNIQUE: Images: XR KNEE 4V AP/PA BOTH+LAT/JESSEE RT Comparison: None. RESULT: Findings: Bilateral findings. Moderate narrowing of the medial compartments Right :No fractures or dislocations are seen. Left :No fractures or dislocations are seen. IMPRESSION IMPRESSION: Findings as discussed in results portion of report Lithographed Plate Inspector: ELIZA Transcribe Date/Time: Jun 06 2023 9:16A Dictated by : NEVILLE HANSEN DO This examination was interpreted and the report reviewed and electronically signed by: NEVILEL HANSEN DO on Jun 06 2023 9:19AM EST [facility] XR Knee - right 4 ViewsOrder ed By: Ccf Provider on 06-06-2023 [facility] XR Pelvis and Hip - right AP and Lateral frogon 06-06-2023 IMPRESSION: Degenerative changes as discussed Lithographed Plate Inspector: ELIZA Transcribe Date/Time: Jun 06 2023 9:14A Dictated by : NEVILLE HANSEN DO This examination was interpreted and the report reviewed and electronically signed by: NEVILLE HANSEN DO on Jun 06 2023 9:16AM EST [facility] * * *Final Report* * * DATE OF EXAM: Jun 05 2023 1:47PM KACY 5352 - XR HIP 3V PELV+ AP/LAT RT / PROCEDURE REASON: M25.551-Pain in right hip * * * * Physician Interpretation * * * * Pelvis and right hip HISTORY: Indication: Pain in right hip TECHNIQUE: Images: XR HIP 3V PELV+ AP/LAT RT Comparison: CT abdomen and pelvis 03/08/2015 RESULT: Findings: Mild degenerative changes lower lumbar spine Pelvis: No fractures or dislocations are seen. Moderate narrowing of both hip joints. Similar to the previous study study Right hip: No fractures or dislocations are seen. [facility], [facility]06/2023 * * *Final Report* * * DATE OF EXAM: Jun 05 2023 1:47PM KACY 5352 - XR HIP 3V PELV+ AP/LAT RT / PROCEDURE REASON: M25.551-Pain in right hip * * * * Physician Interpretation * * * * Pelvis and right hip HISTORY: Indication: Pain in right hip TECHNIQUE: Images: XR HIP 3V PELV+ AP/LAT RT Comparison: CT abdomen and pelvis 03/08/2015 RESULT: Findings: Mild degenerative changes lower lumbar spine Pelvis: No fractures or dislocations are seen. Moderate narrowing of both hip joints. Similar to the previous study study Right hip: No fractures or dislocations are seen. IMPRESSION IMPRESSION: Degenerative changes as discussed Lithographed Plate Inspector: ELIZA Transcribe Date/Time: Jun 06 2023 9:14A Dictated by : NEVILLE HANSEN DO This examination was interpreted and the report reviewed and electronically signed by: NEVILLE HANSEN DO on Jun 06 2023 9:16AM EST [facility] No Panel Informationon 06-05 Radiology Study observation (narrative) [facility] XR HIP 3V PELV+ AP/LAT RTon 06-05-2023 XR HIP 3V PELV+ AP/LAT RT * * *Final Report* * * DATE OF EXAM: Jun 05 2023 1:47PM KACY 5352 - XR HIP 3V PELV+ AP/LAT RT / PROCEDURE REASON: M25.551-Pain in right hip * * * * Physician Interpretation * * * * Pelvis and right hip HISTORY: Indication: Pain in right hip TECHNIQUE: Images: XR HIP 3V PELV+ AP/LAT RT Comparison: CT abdomen and pelvis 03/08/2015 RESULT: Findings: Mild degenerative changes lower lumbar spine Pelvis: No fractures or dislocations are seen. Moderate narrowing of both hip joints. Similar to the previous study study Right hip: No fractures or dislocations are seen. IMPRESSION: Degenerative changes as discussed Lithographed Plate Inspector: ELIZA Transcribe Date/Time: Jun 06 2023 9:14A Dictated by : NEVILLE HANSEN DO This examination was interpreted and the report reviewed and electronically signed by: NEVILLE HANSEN DO on Jun 06 2023 9:16AM EST [id number] [facility] XR KNEE 4V AP/PA BOTH+LAT/ME R RTon 06-05-2023 XR KNEE 4V AP/PA BOTH+LAT/JESSEE RT * * *Final Report* * * DATE OF EXAM: Jun 05 2023 1:47PM O 5203 - XR KNEE 4V AP/PA BOTH+LAT/JESSEE RT / PROCEDURE REASON: M25.561-Right knee pain, unspecified chronicity * * * * Physician Interpretation * * * * EXAM(s): XR KNEE 4V AP/PA BOTH+LAT/JESSEE RT EXAM DATE/TIME: 06/05/2023 1:47 PM HISTORY: 53 years old Clinical information: Right knee pain, unspecified chronicity RIGHT KNEE PAIN TECHNIQUE: Images: XR KNEE 4V AP/PA BOTH+LAT/JESSEE RT Comparison: None. RESULT: Findings: Bilateral findings. Moderate narrowing of the medial compartments Right :No fractures or dislocations are seen. Left :No fractures or dislocations are seen. IMPRESSION: Findings as discussed in results portion of report Lithographed Plate Inspector: ELIZA Transcribe Date/Time: Jun 06 2023 9:16A Dictated by : NEVILLE HANSEN DO This examination was interpreted and the report reviewed and electronically signed by: NEVILLE HANSEN DO on Jun 06 2023 9:19AM EST [id number]ST [facility]V FRONTAL/LATon [facility] XR Chest PA and Lateralon IMPRESSION: No acute radiographic abnormality. Lithographed Plate Inspector: ELIZA Transcribe Date/Time: Feb 09 2023 12:52P Dictated by : EDUAR RENEE MD This examination was interpreted and the report reviewed and electronically signed by: EDUAR RENEE MD on Feb 09 2023 12:53PM [facility] DIVISION OF RADIOLOGY * * *Final Report* * * DATE OF EXAM: Feb 09 2023 12:41PM WOX 5291 - XR CHEST 2V FRONTAL/LAT / PROCEDURE REASON: SOB (shortness of breath) * * * * Physician Interpretation * * * * EXAMINATION: CHEST RADIOGRAPH (2 VIEW FRONTAL & LATERAL) CLINICAL HISTORY: SOB (shortness of breath) MQ: XC2_6 EXAM DATE/TIME: 02/09/2023 12:41 PM COMPARISON: Chest x-ray on 06/28/2019 RESULT: Lines, tubes, and devices: None. Lungs and pleura: No consolidation. No lung mass. No pleural effusion. No pneumothorax. Cardiomediastinal silhouette: Normal cardiomediastinal silhouette. Bones and soft tissues: The spine shows degenerative changes. DIVISION OF RADIOLOGY Provider, [facility] - 02/09/2023 * * *Final Report* * * DATE OF EXAM: Feb 09 2023 12:41PM WOX 5291 - XR CHEST 2V FRONTAL/LAT / PROCEDURE REASON: SOB (shortness of breath) * * * * Physician Interpretation * * * * EXAMINATION: CHEST RADIOGRAPH (2 VIEW FRONTAL & LATERAL) CLINICAL HISTORY: SOB (shortness of breath) MQ: XC2_6 EXAM DATE/TIME: 02/09/2023 12:41 PM COMPARISON: Chest x-ray on 06/28/2019 RESULT: Lines, tubes, and devices: None. Lungs and pleura: No consolidation. No lung mass. No pleural effusion. No pneumothorax. Cardiomediastinal silhouette: Normal cardiomediastinal silhouette. Bones and soft tissues: The spine shows degenerative changes. IMPRESSION IMPRESSION: No acute radiographic abnormality. Lithographed Plate Inspector: ELIZA Transcribe Date/Time: Feb 09 2023 12:52P Dictated by : EDUAR RENEE MD This examination was interpreted and the report reviewed and electronically signed by: DEUAR RENEE MD on Feb 09 2023 12:53PM EST [facility] Radiology Study observation (narrative) [facility] XR Chest PA and LateralOrder ed By: Ccf Provider on 02-09-2023 [facility] XR SHOULDER GENERAL 3V OR MO RE AP/TRUE AP/OTHER RIGHTon 11-06-2022 [facility] XR HAND GENERAL 3V PA/LAT/OB L RIGHTon 09-08-2022 [facility] 36on 04-18-2022 36 DOS 04/25/2022 LSG W / HH AD Last OV-03/29/22 with NK, next post op. Pt was seen for FPOV on 02/01/22 with Ben. Therapy complete after 3 months of treatment. Order declined as original RX contained enough refills to complete treatment. Normal [facility] PREPROCINSon 04-18-[address] Panchal DIET AND MEDICATION INSTRUCTIONS GIVEN TO YOU IN BARIATRIC CLASS. SHOWER USING HIBICLENS OR DIRECTED BY YOUR SURGEON THE MORNING OF SURGERY. AFTER YOUR SHOWER NO DEODORANT,LOTION,POWDER, BODY SPRAY. NO HAIR PRODUCTS. IF YOU WEAR JEWELRY PLEASE REMOVE IT ALL AND LEAVE IT AT HOME. DO NOT WEAR CONTACT LENSES DAY OF SURGERY. YOU MAY BRUSH YOUR TEETH MORNING OF SURGERY. PLEASE BRING YOUR CPAP/BIPAP MACHINE. IF YOU HAVE SPECIFIC QUESTIONS, PLEASE CALL THE BARIATRIC CENTER. You may use the pet house sitter parking located at the main entrance on [address] [facility] and take the H elevator to the first floor for same day surgery. Take a left after exiting the elevator and check in at the desk. You may use the parking in the Main deck. Take the level one bridge to the H building and follow the signs for same day surgery. Check in at the desk. Normal [facility] Albuminon 02-10-2022 Albumin [Mass/Vol] 4.3 g/dL 3.5 - 5 g/dL [facility] Albumin, Serumon 02-10-2022 Albumin [Mass/Vol] 4.3 g/dL Normal 3.5-5.0 [facility] Comment on above: Performed By: #### Z INC2, NICBO, WBB1O #### The performing lab is in the report. #### CMP3, HEMOG, IRON3, LIPD2, FERR3, MG3, B12, TSH5 #### [facility] [address] [place] [address] #### VD25H, FOLT3 #### [facility] [address] [place] [address] Basic Metabolic Panelon 09-0 Anion gap [Moles/Vol] 7 mmol/L Normal 3-13 [facility] Comment on above: Performed By: #### Z INC2, NICBO, WBB1O #### The performing lab is in the report. #### CMP3, HEMOG, IRON3, LIPD2, FERR3, MG3, B12, TSH5 #### [facility] [address] [facility] [place] [address] #### VD25H, FOLT3 #### [place] [address] [place] [address] Calcium [Mass/Vol] 10.1 mg/dL Normal 8.4-10.4 [facility] Comment on above: Performed By: #### Z INC2, NICBO, WBB1O #### The performing lab is in the report. #### CMP3, HEMOG, IRON3, LIPD2, FERR3, MG3, B12, TSH5 #### [address] [place] [address] #### VD25H, FOLT3 #### [place] [address] [place] [address] CO2 [Moles/Vol] 27 mmol/L Normal 22-30 [facility] Comment on above: Performed By: #### Z INC2, NICBO, WBB1O #### The performing lab is in the report. #### CMP3, HEMOG, IRON3, LIPD2, FERR3, MG3, B12, TSH5 #### [facility] [address] [place] [address] #### VD25H, FOLT3 #### [place] [address] [place] [address] Glucose [Mass/Vol] 146 mg/dL High 70-100 [facility] Comment on above: Performed By: #### Z INC2, NICBO, WBB1O #### The performing lab is in the report. #### CMP3, HEMOG, IRON3, LIPD2, FERR3, MG3, B12, TSH5 #### [facility] [address] [place] [address] #### VD25H, FOLT3 #### [facility] [address] [place] [address] Urea nitrogen [Mass/Vol] 24 mg/dL High 9-20 [facility] Comment on above: Performed By: #### Z INC2, NICBO, WBB1O #### The performing lab is in the report. #### CMP3, HEMOG, IRON3, LIPD2, FERR3, MG3, B12, TSH5 #### [facility] [address] [place] [address] #### VD25H, FOLT3 #### [facility] [address] [place] [address] Creatinine [Mass/Vol] 0.70 mg/dL Normal 0.52-1.25 [facility] Comment on above: Performed By: #### Z INC2, NICBO, WBB1O #### The performing lab is in the report. #### CMP3, HEMOG, IRON3, LIPD2, FERR3, MG3, B12, TSH5 #### [address] [address] #### VD25H, FOLT3 #### [facility] [address] [place] [address] eGFR OTHER > 90.0 Normal >60 [facility] Comment on above: Result Comment: KDIG O guidelines provide the following GFR categories: Stage GFR(ml/min/1.73 m2) Terms G1 >=90 Normal or high G2 60-89 Mildly decreased* G3a 45-59 Mildly to moderately decreased G3b 30-44 Moderately to severely decreased G4 15-29 Severely decreased G5 <15 Kidney failure *Relative to young adult level. In the absence of evidence of kidney damage, neither GFR category G1 nor G2 fulfill the criteria for CKD. The CKD-EPI equation is validated in individuals 18 years of age and older. Currently the best equation for estimating glomerular filtration rate (GFR) from serum creatinine in children is the Bedside Brown equation. It is less accurate in patients with extremes of muscle mass, restriction of dietary protein, ingestion of creatine, extra-renal metabolism of creatinine, or treatment with medications that affect renal tubular creatinine secretion. Performed By: #### Z INC2, NICBO, WBB1O #### The performing lab is in the report. #### CMP3, HEMOG, IRON3, LIPD2, FERR3, MG3, B12, TSH5 #### [facility] [address] [place] [address] #### VD25H, FOLT3 #### [facility] [address] [place] [address] GFR/1.73 sq M.predicted among blacks MDRD (S/P/Bld) [Vol rate/Area] mL/min/{1.73_m2} Normal >60 [facility] Comment on above: Performed By: #### Z INC2, NICBO, WBB1O #### The performing lab is in the report. #### CMP3, HEMOG, IRON3, LIPD2, FERR3, MG3, B12, TSH5 #### [facility] [address] [place] [address] #### VD25H, FOLT3 #### [facility] [address] [place] [address] Chloride [Moles/Vol] 105 mmol/L Normal 98-107 [facility] Comment on above: Performed By: #### Z INC2, NICBO, WBB1O #### The performing lab is in the report. #### CMP3, HEMOG, IRON3, LIPD2, FERR3, MG3, B12, TSH5 #### [facility] [address] [place] [address] #### VD25H, FOLT3 #### [facility] [address] [place] [address] Potassium [Moles/Vol] 4.2 mmol/L Normal 3.5-5.1 [facility] Comment on above: Performed By: #### Z INC2, NICBO, WBB1O #### The performing lab is in the report. #### CMP3, HEMOG, IRON3, LIPD2, FERR3, MG3, B12, TSH5 #### [facility] [address] [place] [address] #### VD25H, FOLT3 #### [facility] [address] [place] [address] Sodium [Moles/Vol] 140 mmol/L Normal 135-145 [facility] Comment on above: Performed By: #### Z INC2, NICBO, WBB1O #### The performing lab is in the report. #### CMP3, HEMOG, IRON3, LIPD2, FERR3, MG3, B12, TSH5 #### [facility] [address] [facility] [address] [place] [address] #### VD25H, FOLT3 #### [facility] [address] [place] [address] Anion gap [Moles/Vol] 7 mmol/L 3 - 13 mmol/L [facility] Calcium [Mass/Vol] 10.1 mg/dL 8.4 - 10. 4 mg/dL [facility] Chloride [Moles/Vol] 105 mmol/L 98 - 107 mmol/L [facility] CO2 [Moles/Vol] 27 mmol/L 22 - 30 mmol/L [facility] Creatinine [Mass/Vol] 0.7 mg/dL 0.52 - 1.25 mg/dL [facility] eGFR mL/min 60 - PINF mL/min [facility] EGFR IF NonAfrican Tanzanian mL/min 60 - PINF mL/min [facility] Comment on above: KDIGO guidelines pro vide the following GFR categories: Stage GFR(ml/min/1.73 m2) Terms G1 >=90 Normal or high G2 60-89 Mildly decreased* G3a 45-59 Mildly to moderately decreased G3b 30-44 Moderately to severely decreased G4 15-29 Severely decreased G5 <15 Kidney failure *Relative to young adult level. In the absence of evidence of kidney damage, neither GFR category G1 nor G2 fulfill the criteria for CKD. The CKD-EPI equation is validated in individuals 18 years of age and older. Currently the best equation for estimating glomerular filtration rate (GFR) from serum creatinine in children is the Bedside Brown equation. It is less accurate in patients with extremes of muscle mass, restriction of dietary protein, ingestion of creatine, extra-renal metabolism of creatinine, or treatment with medications that affect renal tubular creatinine secretion. Glucose [Mass/Vol] 146 mg/dL High 70 - 100 mg/dL [facility] Interpretation and review of laboratory results Abnormal [facility] Potassium [Moles/Vol] 4.2 mmol/L 3.5 - 5.1 mmol/L [facility] Sodium [Moles/Vol] 140 mmol/L 135 - 145 mmol/L [facility] Urea nitrogen (BldV) [Mass/Vol] 24 mg/dL High 9 - 20 mg/dL [facility] CBCon 02-10-2022 Hematocrit (Bld) [Volume fraction] 42.8 % 35 - 47 % [facility] Hemoglobin (Bld) [Mass/Vol] 14.5 g/dL 11.7 - 16 g/dL [facility] Interpretation and review of laboratory results Abnormal [facility] MCH (RBC) [Entitic mass] 30.4 pg 26 - 34 pg [facility] MCHC (RBC) [Mass/Vol] 33.9 % 32 - 36 % [facility] MCV (RBC) [Entitic vol] 89.7 fL 79 - 98 fL [facility] Platelet distribution width (Bld) [Ratio] 13.2 % 11.5 - 14.5 % [facility] Platelet mean volume (Bld) [Entitic vol] 9.1 fL 7.4 - 12.4 fL [facility] Comment on above: MPV is a calculated measurement using platelet volume ratio. Platelets (Bld) [#/Vol] 253 10*3/uL 140 - 440 10*3/uL [facility] RBC (Bld) [#/Vol] 4.77 10*6/uL 3.8 - 5.2 10*6/uL [facility] WBC (Bld) [#/Vol] 12.4 10*3/uL High 3.6 - 10.7 10*3/uL [facility] Test Performed by [facility], [facility] Hiro Silverman. , [address] LAB [facility] CR Chest PA/LATon 02-10-2022 CR Chest PA/LAT Patient Name: RAJATDANIAMALATHI WADE Diagnostic Radiology ACCESSION EXAM DATE/TIME PROCEDURE ORDERING PROVIDER [id number] 02/10/2022 16:09 EDT CR Chest PA and LAT BHPUENDRA MOHAN JOSE R. CPT code 52164 Reason For Exam (CR Chest PA and LAT) Encounter for other preprocedural examination Report PA AND LATERAL CHEST CLINICAL INDICATION: Preprocedural evaluation TECHNIQUE: PA and Lateral chest COMPARISON: None FINDINGS: The cardiac and mediastinal silhouettes are normal. The lungs are clear. There is no sizable pleural effusion. Degenerative change of the thoracic spine is noted. IMPRESSION: No acute process. Report Dictated on Final Dictating Physician: MD NGO NICHOLAS Signed Date and Time: 02/12/2022 8:21 pm Signed by: MD NGO NICHOLAS Transcribed Date and Time: 02/12/2022 8:23 Normal [facility] Hemoglobin A1Con 02-10-2022 Glucose [Mass/Vol] 166 mg/dL Normal [facility] Comment on above: Performed By: #### Z INC2, NICBO, WBB1O #### The performing lab is in the report. #### CMP3, HEMOG, IRON3, LIPD2, FERR3, MG3, B12, TSH5 #### [facility] [address] [place] [address] #### VD25H, FOLT3 #### [facility] [address] [place] [address] HbA1c (Bld) [Mass fraction] 7.4 % Abnormal [facility] Comment on above: Result Comment: Norm al less than 5.7% Prediabetes 5.7% to 6.4% Diabetes 6.5% or higher --HgbA1C levels may not be accurate in patients who have renal disease, received recent blood transfusions, are anemic, or who have dyshemoglobinemia. Performed By: #### Z INC2, NICBO, WBB1O #### The performing lab is in the report. #### CMP3, HEMOG, IRON3, LIPD2, FERR3, MG3, B12, TSH5 #### [facility] [address] [place] [address] #### VD25H, FOLT3 #### [facility] [address] [place] [address] eAG 166 mg/dL [facility] HbA1c (Bld) [Mass fraction] 7.4 % Abnormal [facility] Comment on above: Normal less than 5.7 % Prediabetes 5.7% to 6.4% Diabetes 6.5% or higher --HgbA1C levels may not be accurate in patients who have renal disease, received recent blood transfusions, are anemic, or who have dyshemoglobinemia. Interpretation and review of laboratory results Abnormal [facility] Test Performed by [facility] [address] , [place], [place] [id number] [place] [address] LAB [facility] Hemogramon 02-10-2022 Erythrocyte distribution width (RBC) [Ratio] 13.2 % Normal 11.5-14.5 [facility] Comment on above: Performed By: #### Z INC2, NICBO, WBB1O #### The performing lab is in the report. #### CMP3, HEMOG, IRON3, LIPD2, FERR3, MG3, B12, TSH5 #### [facility] [address] [facility] [place] [address] #### VD25H, FOLT3 #### [facility] [address] [place] [address] Hematocrit (Bld) [Volume fraction] 42.8 % Normal 35.0-47.0 [facility] Comment on above: Performed By: #### Z INC2, NICBO, WBB1O #### The performing lab is in the report. #### CMP3, HEMOG, IRON3, LIPD2, FERR3, MG3, B12, TSH5 #### [facility] [address] [place] [address] #### VD25H, FOLT3 #### [facility] [address] [place] [address] Hemoglobin (Bld) [Mass/Vol] 14.5 g/dL Normal 11.7-16.0 [facility] Comment on above: Performed By: #### Z INC2, NICBO, WBB1O #### The performing lab is in the report. #### CMP3, HEMOG, IRON3, LIPD2, FERR3, MG3, B12, TSH5 #### [facility] [address] [place] [address] #### VD25H, FOLT3 #### [facility] [address] [place] [address] MCH (RBC) [Entitic mass] 30.4 pg Normal 26.0-34.0 [facility] Comment on above: Performed By: #### Z INC2, NICBO, WBB1O #### The performing lab is in the report. #### CMP3, HEMOG, IRON3, LIPD2, FERR3, MG3, B12, TSH5 #### [facility] [address] [place] [address] #### VD25H, FOLT3 #### [place] [address] [place] [address] MCHC 33.9 % Normal 32.0-36.0 [facility] Comment on above: Performed By: #### Z INC2, NICBO, WBB1O #### The performing lab is in the report. #### CMP3, HEMOG, IRON3, LIPD2, FERR3, MG3, B12, TSH5 #### [facility] [address] [place] [address] #### VD25H, FOLT3 #### [facility] [address] [place] [address] MCV (RBC) [Entitic vol] 89.7 fL Normal 79.0-98.0 [facility] Comment on above: Performed By: #### Z INC2, NICBO, WBB1O #### The performing lab is in the report. #### CMP3, HEMOG, IRON3, LIPD2, FERR3, MG3, B12, TSH5 #### [facility] [address] [place] [address] #### VD25H, FOLT3 #### [facility] [address] [place] [address] Platelet mean volume (Bld) [Entitic vol] 9.1 fL Normal 7.4-12.4 [facility] Comment on above: Result Comment: MPV is a calculated measurement using platelet volume ratio. Performed By: #### Z INC2, NICBO, WBB1O #### The performing lab is in the report. #### CMP3, HEMOG, IRON3, LIPD2, FERR3, MG3, B12, TSH5 #### [facility] [address] [facility] [place] [address] #### VD25H, FOLT3 #### [facility] [address] [place] [address] Platelets (Bld) [#/Vol] 253 10*3/uL Normal 140-440 [facility] Comment on above: Performed By: #### Z INC2, NICBO, WBB1O #### The performing lab is in the report. #### CMP3, HEMOG, IRON3, LIPD2, FERR3, MG3, B12, TSH5 #### [facility] [address] [place] [address] #### VD25H, FOLT3 #### [facility] [address] [place] [address] RBC (Bld) [#/Vol] 4.77 10*6/uL Normal 3.80-5.20 [facility] Comment on above: Performed By: #### Z INC2, NICBO, WBB1O #### The performing lab is in the report. #### CMP3, HEMOG, IRON3, LIPD2, FERR3, MG3, B12, TSH5 #### [facility] [address] [facility] [place] [address] #### VD25H, FOLT3 #### [facility] [address] [place] [address] WBC (Bld) [#/Vol] 12.4 10*3/uL High 3.6-10.7 [facility] Comment on above: Performed By: #### Z INC2, NICBO, WBB1O #### The performing lab is in the report. #### CMP3, HEMOG, IRON3, LIPD2, FERR3, MG3, B12, TSH5 #### [facility] [address] [place] [address] #### VD25H, FOLT3 #### [facility] [address] [place] [address] No Panel Informationon 02-10 Test Performed by [facility], [address] 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 w/o Delay Flm CPT code 62496 Reason For Exam (RF UGI w/o KUB and w/ or w/o Delay Flm) Heartburn Report AIR CONTRAST UPPER GI HISTORY: Heartburn. Pre-op gastric sleeve. Comparison: Upper GI endoscopy 09/19/2021. Fluoroscopy time: 0.39 Fluoroscopic images obtained: 13 FINDINGS: The esophagus is normally outlined. There is a prominent cricopharyngeus muscle. There is no hiatus hernia. There is large spontaneous gastroesophageal reflux. There is no esophageal narrowing. The stomach shows unremarkable mucosal pattern and empties without delay into an intact duodenal bulb and loop. IMPRESSION: Prominent cricopharyngeus. Gastroesophageal reflux. Report Dictated on Final Dictated: 12/22/2021 12:20 pm Dictating Physician: MD MULTANI AHMAD Signed Date and Time: 12/22/2021 1:47 pm Signed by: MD MULTANI AHMAD Transcribed Date and Time: 12/22/2021 12:29 Normal [facility] BAUDILIO GARCIA PANELon 022 EBV EA Ab, Qual Negative Negative [facility] EBV NA Ab, Qual Positive Abnormal Negative [facility] EBV VCA IgG, Qual Positive Abnormal Negative [facility] EBV VCA IgM, Qual Negative Negative [facility] Interpretation (EBVPNL) Past Infection [facility] HEP C AB IA W/CONF SCRNon HCV Ab Ql (S) Negative Negative [facility] HbA1c (Bld)on 11-30-2021 Average glucose Estimated from glycated hemoglobin (Bld) [Mass/Vol] 163 mg/dL [facility] HbA1c (Bld) [Mass fraction] 7.3 % High 4.3 - 5.6 % [facility] Hepatic function 2000 panelo n 11-30-2021 Albumin [Mass/Vol] 4.3 g/dL 3.9 - 4.9 g/dL [facility] ALP [Catalytic activity/Vol] 90 U/L 34 - 123 U/L [facility] ALT [Catalytic activity/Vol] 19 U/L 7 - 38 U/L [facility] AST [Catalytic activity/Vol] 20 U/L 13 - 35 U/L [facility] Bilirubin [Mass/Vol] 0.3 mg/dL 0.2 - 1.3 mg/dL [facility] Bilirubin.conjugate d [Mass/Vol] <0.2 mg/dL [facility] Protein [Mass/Vol] 7.2 g/dL 6.3 - 8.0 g/dL [facility] PT panel Coag (PPP)on 2021 INR Coag (PPP) [Relative time] 1.0 {INR} 0.9 - 1.3 [facility] PT Coag (PPP) [Time] 10.5 s 9.7 - 13.[address] [facility] Nicotine, Bloodon 10-11-2021 [id number], Blood < 2 Normal [facility] Comment on above: Result Comment: Patricia viduals exposed to second hand or passive tobacco smoke may demonstrate concentrations of nicotine and metabolites greater than those indicated for non- smokers. Reference Ranges: Active Non-Smoker Tobacco User (ng/mL) (ng/mL) Nicotine <4 2-10 Cotinine <8 16-145 4-[id number]-[id number] <2 100-500 This test was developed and its analytical performance characteristics have been determined by [employer] [place]. It has not been cleared or approved by the U.S. Food and Drug Administration. This assay has been validated pursuant to the CLIA regulations and is used for clinical purposes. Test Performed by [facility], [address] [place] [address] Deni Lynch M.D., Ph.D., Director of Laboratories , CLIA [id number] Performed By: #### Z INC2, NICBO, WBB1O #### The performing lab is in the report. #### CMP3, HEMOG, IRON3, LIPD2, FERR3, MG3, B12, TSH5 #### [facility] [address] [place] [address] #### VD25H, FOLT3 #### [facility] [address] [place] [address] Cotinine, Blood < 2 Normal [facility] Comment on above: Performed By: #### Z INC2, NICBO, WBB1O #### The performing lab is in the report. #### CMP3, HEMOG, IRON3, LIPD2, FERR3, MG3, B12, TSH5 #### [facility] [address] [place] [address] #### VD25H, FOLT3 #### [facility] [address] [place] [address] Nicotine, Blood < 2 Normal [facility] Comment on above: Performed By: #### Z INC2, NICBO, WBB1O #### The performing lab is in the report. #### CMP3, HEMOG, IRON3, LIPD2, FERR3, MG3, B12, TSH5 #### [facility] [address] [place] [address] #### VD25H, FOLT3 #### [facility] [address] [place] [address] Vitamin B1,Whole Bloodon Vitamin B1,Whole Blood 133 nmol/L Normal 70-180 [facility] Comment on above: Result Comment: INTE RPRETIVE INFORMATION: Vitamin B1, Whole Blood This assay measures the concentration of thiamine diphosphate (TDP), the primary active form of vitamin B1. Approximately 90 percent of vitamin B1 present in whole blood is TDP. Thiamine and thiamine monophosphate, which comprise the remaining 10 percent, are not measured. This test was developed and its performance characteristics determined by [employer] It has not been cleared or approved by the US Food and Drug Administration. This test was performed in a CLIA certified laboratory and is intended for clinical purposes. Performed By: [facility] [address] [place], [place] [id number] Chief Engineer Research: Dulce Higginbotham MD Performed By: #### Z INC2, NICBO, WBB1O #### The performing lab is in the report. #### CMP3, HEMOG, IRON3, LIPD2, FERR3, MG3, B12, TSH5 #### [facility] [address] [place] [address] #### VD25H, FOLT3 #### [facility] [address] [place] [address] Zinc, Serumon 10-09-2021 Zinc, Serum 89.4 ug/dL Normal 60.0-120.0 [facility] Comment on above: Result Comment: INTE RPRETIVE INFORMATION: Zinc, Serum or Plasma Elevated results may be due to skin or collection-related contamination, including the use of a noncertified metal-free collection/transport tube. If contamination concerns exist due to elevated levels of serum/plasma zinc, confirmation with a second specimen collected in a certified metal-free tube is recommended. Circulating zinc concentrations are dependent on albumin status and are depressed with malnutrition. Zinc may also be lowered with infection, inflammation, stress, oral contraceptives, and . Zinc may be elevated with zinc supplementation or fasting. Elevated zinc concentrations may interfere with copper absorption. This test was developed and its performance characteristics determined by [employer] It has not been cleared or approved by the US Food and Drug Administration. This test was performed in a CLIA certified laboratory and is intended for clinical purposes. Performed By: [facility] [facility] [address] [place], [place] [id number] Chief Engineer Research: Dulce Higginbotham MD Performed By: #### Z INC2, NICBO, WBB1O #### The performing lab is in the report. #### CMP3, HEMOG, IRON3, LIPD2, FERR3, MG3, B12, TSH5 #### [facility] [address] [place] [address] #### VD25H, FOLT3 #### [facility] [address] [place] [address] [facility]Con 10-05-2021 Hematocrit (Bld) [Volume fraction] 43.6 % 35.0 - 47.0 % [facility] Hemoglobin.gastroin testinal spec 1 Ql (Stl) 14.5 g/dL 11.7 - 16.0 g/dL [facility] MCH (RBC) [Entitic mass] 30.1 pg 26.0 - 34.0 pg [facility] MCHC (RBC) [Mass/Vol] 33.3 % 32.0 - 36.0 % [facility] MCV (RBC) [Entitic vol] 90.5 fL 79.0 - 98.0 fL [facility] Platelet distribution width (Bld) [Ratio] 13.6 % 11.5 - 14.5 % [facility] Platelet mean volume (Bld) [Entitic vol] 9.2 fL 7.4 - 12.4 fL [facility] Comment on above: MPV is a calculated measurement using platelet volume ratio. Platelets (Bld) [#/Vol] 260 10*3/uL 140 - 440 10*3/uL [facility] RBC (Bld) [#/Vol] 4.82 10*6/uL 3.80 - 5.2 0 10*6/uL [facility] WBC (Bld) [#/Vol] 10.0 10*3/uL 3.6 - 10.7 10*3/uL [facility] Test Performed by [facility], [address] , [place], [place] [id number] [place] [address] LAB [facility] Comp Metabolic Panelon 10-05 Anion gap [Moles/Vol] 7 mmol/L Normal 3-13 [facility] Comment on above: Performed By: #### Z INC2, NICBO, WBB1O #### The performing lab is in the report. #### CMP3, HEMOG, IRON3, LIPD2, FERR3, MG3, B12, TSH5 #### [facility] [address] [place] [address] #### VD25H, FOLT3 #### [facility] [address] [place] [address] ALP [Catalytic activity/Vol] 86 U/L Normal 38-126 [facility] Comment on above: Performed By: #### Z INC2, NICBO, WBB1O #### The performing lab is in the report. #### CMP3, HEMOG, IRON3, LIPD2, FERR3, MG3, B12, TSH5 #### [facility] [address] [place] [address] #### VD25H, FOLT3 #### [facility] [address] [facility] [place] [address] ALT [Catalytic activity/Vol] 31 U/L Normal 0-34 [facility] Comment on above: Result Comment: The ALT test is performed by an updated assay method. Please note that the reference intervals have been changed and are now sex specific. Performed By: #### Z INC2, NICBO, WBB1O #### The performing lab is in the report. #### CMP3, HEMOG, IRON3, LIPD2, FERR3, MG3, B12, TSH5 #### [facility] [address] [place] [address] #### VD25H, FOLT3 #### [facility] [address] [facility] [place] [address] Calcium [Mass/Vol] 9.7 mg/dL Normal 8.4-10.4 [facility] Comment on above: Performed By: #### [employer] INC2, NICBO, WBB1O #### The performing lab is in the report. #### CMP3, HEMOG, IRON3, LIPD2, FERR3, MG3, B12, TSH5 #### [facility] [address] [place] [address] #### VD25H, FOLT3 #### [facility] [address] [facility] [place] [address] Glucose [Mass/Vol] 199 mg/dL High 70-100 [facility] Comment on above: Performed By: #### Z INC2, NICBO, WBB1O #### The performing lab is in the report. #### CMP3, HEMOG, IRON3, LIPD2, FERR3, MG3, B12, TSH5 #### [facility] [address] [place] [address] #### VD25H, FOLT3 #### [facility] [address] [place] [address] Urea nitrogen [Mass/Vol] 13 mg/dL Normal 9-20 [facility] Comment on above: Performed By: #### Z INC2, NICBO, WBB1O #### The performing lab is in the report. #### CMP3, HEMOG, IRON3, LIPD2, FERR3, MG3, B12, TSH5 #### [facility] [place] [address] #### VD25H, FOLT3 #### [facility] [address] [facility] [place] [address] AST [Catalytic activity/Vol] 75 U/L High 15-46 [facility] Comment on above: Performed By: #### Z INC2, NICBO, WBB1O #### The performing lab is in the report. #### CMP3, HEMOG, IRON3, LIPD2, FERR3, MG3, B12, TSH5 #### [facility] [place] [address] #### VD25H, FOLT3 #### [facility] [address] [place] [address] Bilirubin [Mass/Vol] 0.8 mg/dL Normal 0.2-1.3 [facility] Comment on above: Performed By: #### Z INC2, NICBO, WBB1O #### The performing lab is in the report. #### CMP3, HEMOG, IRON3, LIPD2, FERR3, MG3, B12, TSH5 #### [facility] [address] [place] [address] #### VD25H, FOLT3 #### [facility] [address] [place] [address] CO2 [Moles/Vol] 30 mmol/L Normal 22-30 [facility] Comment on above: Performed By: #### Z INC2, NICBO, WBB1O #### The performing lab is in the report. #### CMP3, HEMOG, IRON3, LIPD2, FERR3, MG3, B12, TSH5 #### [facility] [address] [place] [address] #### VD25H, FOLT3 #### [facility] [address] [place] [address] Creatinine [Mass/Vol] 0.69 mg/dL Normal 0.52-1.25 [facility] Comment on above: Performed By: #### Z INC2, NICBO, WBB1O #### The performing lab is in the report. #### CMP3, HEMOG, IRON3, LIPD2, FERR3, MG3, B12, TSH5 #### [facility] [address] [facility] [place] [address] #### VD25H, FOLT3 #### [facility] [address] [place] [address] eGFR OTHER > 90.0 Normal >60 [facility] Comment on above: Result Comment: KDIG O guidelines provide the following GFR categories: Stage GFR(ml/min/1.73 m2) Terms G1 >=90 Normal or high G2 60-89 Mildly decreased* G3a 45-59 Mildly to moderately decreased G3b 30-44 Moderately to severely decreased G4 15-29 Severely decreased G5 <15 Kidney failure *Relative to young adult level. In the absence of evidence of kidney damage, neither GFR category G1 nor G2 fulfill the criteria for CKD. The CKD-EPI equation is validated in individuals 18 years of age and older. Currently the best equation for estimating glomerular filtration rate (GFR) from serum creatinine in children is the Bedside Brown equation. It is less accurate in patients with extremes of muscle mass, restriction of dietary protein, ingestion of creatine, extra-renal metabolism of creatinine, or treatment with medications that affect renal tubular creatinine secretion. Performed By: #### Z INC2, NICBO, WBB1O #### The performing lab is in the report. #### CMP3, HEMOG, IRON3, LIPD2, FERR3, MG3, B12, TSH5 #### [facility] [address] [facility] [place] [address] #### VD25H, FOLT3 #### [facility] [address] [place] [address] GFR/1.73 sq M.predicted among blacks MDRD (S/P/Bld) [Vol rate/Area] mL/min/{1.73_m2} Normal >60 [facility] Comment on above: Performed By: #### Z INC2, NICBO, WBB1O #### The performing lab is in the report. #### CMP3, HEMOG, IRON3, LIPD2, FERR3, MG3, B12, TSH5 #### [facility] [address] [facility] [place] [address] #### VD25H, FOLT3 #### [facility] [address] [place] [address] Protein [Mass/Vol] 7.8 g/dL Normal 6.3-8.2 [facility] Comment on above: Performed By: #### Jack[employer] INC2, NICBO, WBB1O #### The performing lab is in the report. #### CMP3, HEMOG, IRON3, LIPD2, FERR3, MG3, B12, TSH5 #### [facility] [address] [facility] [place] [address] #### VD25H, FOLT3 #### [facility] [address] [place] [address] Chloride [Moles/Vol] 103 mmol/L Normal 98-107 [facility] Comment on above: Performed By: #### Z INC2, NICBO, WBB1O #### The performing lab is in the report. #### CMP3, HEMOG, IRON3, LIPD2, FERR3, MG3, B12, TSH5 #### [facility] [address] [facility] [place] [address] #### VD25H, FOLT3 #### [facility] [address] [place] [address] Potassium [Moles/Vol] 4.5 mmol/L Normal 3.5-5.1 [facility] Comment on above: Performed By: #### Z INC2, NICBO, WBB1O #### The performing lab is in the report. #### CMP3, HEMOG, IRON3, LIPD2, FERR3, MG3, B12, TSH5 #### [facility] [address] [facility] [place] [address] #### VD25H, FOLT3 #### [place] [address] [place] [address] Sodium [Moles/Vol] 140 mmol/L Normal 135-145 [facility] Comment on above: Performed By: #### Z INC2, NICBO, WBB1O #### The performing lab is in the report. #### CMP3, HEMOG, IRON3, LIPD2, FERR3, MG3, B12, TSH5 #### [facility] [address] [facility] [place] [address] #### VD25H, FOLT3 #### [address] [place] [address] Albumin [Mass/Vol] 4.4 g/dL Normal 3.5-5.0 [facility] Comment on above: Performed By: #### Z INC2, NICBO, WBB1O #### The performing lab is in the report. #### CMP3, HEMOG, IRON3, LIPD2, FERR3, MG3, B12, TSH5 #### [address] [place] [address] #### VD25H, FOLT3 #### [address] [place] [address] Comprehensive Metabolic Pane phani 10-05-2021 Albumin [Mass/Vol] 4.4 g/dL 3.5 - 5.0 g/dL [facility] ALP (Bld) [Catalytic activity/Vol] 86 U/L 38 - 126 U/L [facility] ALT [Catalytic activity/Vol] 31 U/L 0 - 34 U/L [facility] Comment on above: The ALT test is perf ormed by an updated assay method. Please note that the reference intervals have been changed and are now sex specific. Anion gap [Moles/Vol] 7 mmol/L 3 - 13 mmol/L [facility] AST [Catalytic activity/Vol] 75 U/L High 15 - 46 U/L [facility] Bilirubin [Mass/Vol] 0.8 mg/dL 0.2 - 1.3 mg/dL [facility] Calcium [Mass/Vol] 9.7 mg/dL 8.4 - 10. 4 mg/dL [facility] Chloride [Moles/Vol] 103 mmol/L 98 - 107 mmol/L [facility] CO2 [Moles/Vol] 30 mmol/L 22 - 30 mmol/L [facility] Creatinine [Mass/Vol] 0.69 mg/dL 0.52 - 1.25 mg/dL [facility] EGFR IF NonAfrican Tanzanian >90.0 >60 mL/min [facility] Comment on above: KDIGO guidelines pro vide the following GFR categories: Stage GFR(ml/min/1.73 m2) Terms G1 >=90 Normal or high G2 60-89 Mildly decreased* G3a 45-59 Mildly to moderately decreased G3b 30-44 Moderately to severely decreased G4 15-29 Severely decreased G5 <15 Kidney failure *Relative to young adult level. In the absence of evidence of kidney damage, neither GFR category G1 nor G2 fulfill the criteria for CKD. The CKD-EPI equation is validated in individuals 18 years of age and older. Currently the best equation for estimating glomerular filtration rate (GFR) from serum creatinine in children is the Bedside Brown equation. It is less accurate in patients with extremes of muscle mass, restriction of dietary protein, ingestion of creatine, extra-renal metabolism of creatinine, or treatment with medications that affect renal tubular creatinine secretion. Free PSA/Total PSA [Mass fraction] 7.8 g/dL 6.3 - 8.2 g/dL [facility] GFR/1.73 sq M.predicted among blacks MDRD (S/P/Bld) [Vol rate/Area] mL/min/{1.73_m2} >60 mL/min [facility] Glucose [Mass/Vol] 199 mg/dL High 70 - 100 mg/dL [facility] Interpretation and review of laboratory results Abnormal [facility] Potassium [Moles/Vol] 4.5 mmol/L 3.5 - 5.1 mmol/L [facility] Sodium [Moles/Vol] 140 mmol/L 135 - 145 mmol/L [facility] Urea nitrogen (BldV) [Mass/Vol] 13 mg/dL 9 - 20 mg/dL [facility] Test Performed by [facility], [facility] [address] , [place] [address] [facility] Ferritinon 10-05-2021 Ferritin [Mass/Vol] 87 ng/mL Normal 11-264 [facility] Comment on above: Performed By: #### Z INC2VIJAYABO, WBB1O #### The performing lab is in the report. #### CMP3, HEMOG, IRON3, LIPD2, FERR3, MG3, B12, TSH5 #### [facility] [address] [place] [address] #### VD25H, FOLT3 #### [facility] [address] [place] [address] Ferritin [Mass/Vol] 87 ng/mL 11 - 264 ng/mL [facility] Folateon 10-05-2021 Folate 19.6 ng/mL Normal [facility] Comment on above: Result Comment: >2.8 Performed By: #### Z INC2 NICBO, WBB1O #### The performing lab is in the report. #### CMP3, HEMOG, IRON3, LIPD2, FERR3, MG3, B12, TSH5 #### [address] [place] [address] #### VD25H, FOLT3 #### [facility] [address] [place] [address] Folate 19.6 ng/mL [facility] Comment on above: >2.8 Test Performed by [facility], [address] [place], [place] [id number] [place] [address] LAB [facility] Hemogramon 10-05-2021 Erythrocyte distribution width (RBC) [Ratio] 13.6 % Normal 11.5-14.5 [facility] Comment on above: Performed By: #### Z INC2, NICBO, WBB1O #### The performing lab is in the report. #### CMP3, HEMOG, IRON3, LIPD2, FERR3, MG3, B12, TSH5 #### [facility] [address] [place] [address] #### VD25H, FOLT3 #### [facility] [address] [place] [address] Hematocrit (Bld) [Volume fraction] 43.6 % Normal 35.0-47.0 [facility] Comment on above: Performed By: #### Jacki LEON2VIJAYABO, WBB1O #### The performing lab is in the report. #### CMP3, HEMOG, IRON3, LIPD2, FERR3, MG3, B12, TSH5 #### [address] [address] #### VD25H, FOLT3 #### [facility] [address] [place] [address] Hemoglobin (Bld) [Mass/Vol] 14.5 g/dL Normal 11.7-16.0 [facility] Comment on above: Performed By: #### Z CAROLYN2, VIJAYABO, WBB1O #### The performing lab is in the report. #### CMP3, HEMOG, IRON3, LIPD2, FERR3, MG3, B12, TSH5 #### [address] [address] #### VD25H, FOLT3 #### [facility] [address] [place] [address] MCH (RBC) [Entitic mass] 30.1 pg Normal 26.0-34.0 [facility] Comment on above: Performed By: #### Z CAROLYN2, NICBO, WBB1O #### The performing lab is in the report. #### CMP3, HEMOG, IRON3, LIPD2, FERR3, MG3, B12, TSH5 #### [address] [address] #### VD25H, FOLT3 #### [facility] [address] [place] [address] MCHC 33.3 % Normal 32.0-36.0 [facility] Comment on above: Performed By: #### Z INC2, NICBO, WBB1O #### The performing lab is in the report. #### CMP3, HEMOG, IRON3, LIPD2, FERR3, MG3, B12, TSH5 #### [address] [place] [address] #### VD25H, FOLT3 #### [facility] [address] [place] [address] MCV (RBC) [Entitic vol] 90.5 fL Normal 79.0-98.0 [facility] Comment on above: Performed By: #### [employer] INC[employer], NICBO, WBB1O #### The performing lab is in the report. #### CMP3, HEMOG, IRON3, LIPD2, FERR3, MG3, B12, TSH5 #### [facility] [address] [place] [address] #### VD25H, FOLT3 #### [facility] [address] [place] [address] Platelet mean volume (Bld) [Entitic vol] 9.2 fL Normal 7.4-12.4 [facility] Comment on above: Result Comment: MPV is a calculated measurement using platelet volume ratio. Performed By: #### Z INC2, NICBO, WBB1O #### The performing lab is in the report. #### CMP3, HEMOG, IRON3, LIPD2, FERR3, MG3, B12, TSH5 #### [facility] [address] [place] [address] #### VD25H, FOLT3 #### [facility] [address] [place] [address] Platelets (Bld) [#/Vol] 260 10*3/uL Normal 140-440 [facility] Comment on above: Performed By: #### Z INC2, NICBO, WBB1O #### The performing lab is in the report. #### CMP3, HEMOG, IRON3, LIPD2, FERR3, MG3, B12, TSH5 #### [facility] [address] [place] [address] #### VD25H, FOLT3 #### [facility] [address] [place] [address] RBC (Bld) [#/Vol] 4.82 10*6/uL Normal 3.80-5.20 [facility] Comment on above: Performed By: #### Z INC2, NICBO, WBB1O #### The performing lab is in the report. #### CMP3, HEMOG, IRON3, LIPD2, FERR3, MG3, B12, TSH5 #### [facility] [address] [facility] [place] [address] #### VD25H, FOLT3 #### [facility] [address] [place] [address] WBC (Bld) [#/Vol] 10.0 10*3/uL Normal 3.6-10.7 [facility] Comment on above: Performed By: #### Z INC2, NICBO, WBB1O #### The performing lab is in the report. #### CMP3, HEMOG, IRON3, LIPD2, FERR3, MG3, B12, TSH5 #### [facility] [address] [facility] [place] [address] #### VD25H, FOLT3 #### [facility] [address] [place] [address] Ironon 10-05-2021 Iron [Mass/Vol] 72 ug/dL 37 - 170 ug/dL [facility] Iron, Totalon 10-05-2021 Iron, Total 72 ug/dL Normal 37-170 [facility] Comment on above: Performed By: #### Z INC2, NICBO, WBB1O #### The performing lab is in the report. #### CMP3, HEMOG, IRON3, LIPD2, FERR3, MG3, B12, TSH5 #### [facility] [address] [place] [address] #### VD25H, FOLT3 #### [facility] [address] [place] [address] Lipid Panelon 10-05-2021 Chol/HDL 4 Normal [facility] Comment on above: Result Comment: Ref Range: < 3 Low Risk for CHD 3-6 Mod Risk for CHD > 6 High Risk for CHD Performed By: #### Z INC2, NICBO, WBB1O #### The performing lab is in the report. #### CMP3, HEMOG, IRON3, LIPD2, FERR3, MG3, B12, TSH5 #### [facility] [address] [place] [address] #### VD25H, FOLT3 #### [facility] [address] [place] [address] Cholesterol in HDL [Mass/Vol] 34 mg/dL Low 40-60 [facility] Comment on above: Performed By: #### Z INC2, NICBO, WBB1O #### The performing lab is in the report. #### CMP3, HEMOG, IRON3, LIPD2, FERR3, MG3, B12, TSH5 #### [facility] [address] [place] [address] #### VD25H, FOLT3 #### [facility] [address] [place] [address] Low Density Lipoprotein 88 mg/dL Normal <100 [facility] Comment on above: Performed By: #### Z INC2, NICBO, WBB1O #### The performing lab is in the report. #### CMP3, HEMOG, IRON3, LIPD2, FERR3, MG3, B12, TSH5 #### [facility] [address] [place] [address] #### VD25H, FOLT3 #### [facility] [address] [place] [address] Triglyceride [Mass/Vol] 102 mg/dL Normal <150 [facility] Comment on above: Performed By: #### Z INC2, NICBO, WBB1O #### The performing lab is in the report. #### CMP3, HEMOG, IRON3, LIPD2, FERR3, MG3, B12, TSH5 #### [facility] [address] [place] [address] #### VD25H, FOLT3 #### [facility] [address] [place] [address] Cholesterol [Mass/Vol] 142 mg/dL Normal < 200 [facility] Comment on above: Performed By: #### Z INC2, NICBO, WBB1O #### The performing lab is in the report. #### CMP3, HEMOG, IRON3, LIPD2, FERR3, MG3, B12, TSH5 #### [facility] [address] [place] [address] #### VD25H, FOLT3 #### [facility] [address] [place] [address] Cholesterol [Mass/Vol] 142 mg/dL <200 [facility] Cholesterol in HDL [Mass/Vol] 34 mg/dL Low 40 - 60 mg/dL [facility] Cholesterol in LDL [Mass/Vol] 88 mg/dL <100 [facility] Cholesterol.total/C holesterol in HDL [Mass ratio] 4 {ratio} [facility] Comment on above: Ref Range: < 3 Low Risk for CHD 3-6 Mod Risk for CHD > 6 High Risk for CHD Interpretation and review of laboratory results Abnormal [facility] Triglyceride [Mass/Vol] 102 mg/dL <150 [facility] Magnesiumon 10-05-2021 Magnesium [Mass/Vol] 1.9 mg/dL Normal 1.6-2.3 [facility] Comment on above: Performed By: #### Z INC2, NICBO, WBB1O #### The performing lab is in the report. #### CMP3, HEMOG, IRON3, LIPD2, FERR3, MG3, B12, TSH5 #### [facility] [address] [place] [address] #### VD25H, FOLT3 #### [facility] [address] [place] [address] Magnesium [Mass/Vol] 1.9 mg/dL 1.6 - 2.3 mg/dL [facility] No Panel Informationon 10-05 Test Performed by [facility], [address] , [address] LAB [facility] Test Performed by [facility], [address] , [address] LAB [facility] TSH without Reflexon 022 TSH Qn 1.779 u[IU]/mL 0.465 - 4.680 u[IU]/mL [facility] Test Performed by [facility], [address] , [address] [facility] Thyroid Stim. Hormoneon Thyroid Stim. Hormone 1.779 u[IU]/mL Normal 0.465-4.680 [facility] Comment on above: Performed By: #### Z INC2, NICBO, WBB1O #### The performing lab is in the report. #### CMP3, HEMOG, IRON3, LIPD2, FERR3, MG3, B12, TSH5 #### [facility] [address] [place] [address] #### VD25H, FOLT3 #### [facility] [address] [place] [address] US Abdomen Completeon 2021 US Abdomen Complete Patient Name: MALATHI JORDAN Ultrasound ACCESSION EXAM DATE/TIME PROCEDURE ORDERING PROVIDER [id number] 10/05/2021 12:38 EDT US Abdomen Complete BHUPENDRA MOHAN LEISA R. CPT code 17936 Reason For Exam (US Abdomen Complete) Abdominal Pain Report EXAMINATION: Complete abdominal ultrasound. EXAM DATE and TIME: 10/05/2021 12:38 PM EDT INDICATION: Abdominal Pain ADDITIONAL INFORMATION: 51-year-old female with abdominal pain presents for evaluation COMPARISON: None LIMITATIONS: As below TECHNIQUE: Ultrasound real-time scan with image documentation of the abdominal contents was performed. Color and spectral Doppler imaging was also employed. FINDINGS: LIVER Greatest transverse dimension: 19.4 cm. Echogenicity: There is increased hepatic parenchymal echogenicity and coarsening of the hepatic parenchymal echotexture. Surface nodularity: Not visualized. Masses (size and location): None. GALLBLADDER Size and morphology: Normal caliber and wall thickness. Cholelithiasis: None. Pericholecystic fluid: None. Sonographic Cotter's sign: Absent. BILE DUCTS Intrahepatic ducts: No biliary dilation Common bile duct: Normal caliber. Diameter: 6.2 mm PANCREAS The imaged portion of the pancreatic head is unremarkable. Visualization of the body and tail is limited due to overlying bowel gas artifact. RIGHT KIDNEY Size: 12.6 x 5 x 4.4 cm Renal cortex: Normal. Hydronephrosis: None. Calculi, cysts or masses: None. Ultrasound Report LEFT KIDNEY Size: 14.1 x 5.3 x 5.3 cm Renal cortex: Normal. Hydronephrosis: None. Calculi, cysts or masses: None. SPLEEN Size: 12.2 x 5.7 x 12.1 cm, enlarged Parenchyma: Unremarkable. VESSELS Aorta: Visualized portions are unremarkable. The aorta measures 2.2 cm proximally, 1.5 cm at its midpoint and 1.4 cm distally in greatest transverse dimension. IVC: Visualized portions are unremarkable. Normal IVC wave form. OTHER FINDINGS None. IMPRESSION: Hepatosplenomegaly and hepatic steatosis. Report Dictated on Workstation: [facility]ble Final Dictating Physician: MD HAMMOND CHRISTOPHER Signed Date and Time: 10/06/2021 9:36 am Signed by: MD HAMMOND CHRISTOPHER Transcribed Date and Time: 10/06/2021 9:37 Normal [facility] Vit D 25-OH, Totalon 022 Vit D 25-OH, Total 54 ng/mL Normal 30-100 [facility] Comment on above: Result Comment: Ther apy is based on measurement of Total 25- OHD with the following classification levels: Less than 20 ng/mL: Indicative of Vit D deficiency 20-30 ng/mL: Suggests Vit D insufficiency Optimal: Greater than or equal to 30 ng/mL Test performed by Alter-G Competitive Immunoassay, measuring Total Vitamin D, not individual fractions. Performed By: #### Z INC2, NICBO, WBB1O #### The performing lab is in the report. #### CMP3, HEMOG, IRON3, LIPD2, FERR3, MG3, B12, TSH5 #### [facility] [address] [place] [address] #### VD25H, FOLT3 #### [facility] [address] [place] [address] Vitamin B12on 10-05-2021 Cobalamin (Vitamin B12) [Mass/Vol] 412 pg/mL Normal 239-931 [facility] Comment on above: Performed By: #### Z INC2, NICBO, WBB1O #### The performing lab is in the report. #### CMP3, HEMOG, IRON3, LIPD2, FERR3, MG3, B12, TSH5 #### [facility] [address] [place] [address] #### VD25H, FOLT3 #### [facility] [address] [place] [address] Cobalamin (Vitamin B12) [Mass/Vol] 412 pg/mL 239 - 931 pg/mL [facility] Vitamin D 25 Hydroxyon 10-05 Vit D, 25-Hydroxy 54 ng/mL 30 - 100 ng/mL [facility] Comment on above: Therapy is based on measurement of Total 25-OHD with the following classification levels: Less than 20 ng/mL: Indicative of Vit D deficiency 20-30 ng/mL: Suggests Vit D insufficiency Optimal: Greater than or equal to 30 ng/mL Test performed by Alter-G Competitive Immunoassay, measuring Total Vitamin D, not individual fractions. Test Performed by [facility], [address], [place], [place] [id number] [place] [address] LAB [facility] Surgical Pathologyon 022 Surgical Pathology [id number] [facility] PATHOLOGY AND LABORATORY MEDICINE [address] [place] [address] FINAL SURGICAL PATHOLOGY REPORT NAME: DORACasandraFRANKI BRIANA GOULDYUAN, MALATHI Gusman D.O.B.: 1970 51 Y F BILLING NO.: [id number] LOCATION: 1XEO PROCEDURE 09/19/2021 DATE: SURGEON: HEATH PANCHAL M.D. RECEIVED 09/19/2021 DATE: ATTENDING: HEATH PANCHAL M.D. REPORT DATE: 09/20/2021 COPIES TO: DIAGNOSIS: A. DUODENUM, BIOPSY - FEATURES CONSISTENT WITH GASTRIC HETEROTOPIA Comment: The specimen demonstrates enteric and fundic gastric mucosa with mild chronic inflammation and reactive changes. 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 B. GASTRIC ANTRUM, BIOPSY - REACTIVE GASTROPATHY Comment: Evaluation of the H&E-stained sections shows no evidence of Helicobacter pylori or any morphologic features to suggest infection with the organism; as such, further studies for Helicobacter are not indicated. There is no evidence of intestinal metaplasia, dysplasia or malignancy. SMT/SMT Signature> S YARA BARON M.D. CLINICAL INFORMATION: GERD SPECIMEN: (A) DUODENUM, BIOPSY (B) GASTRIC BIOPSY GROSS DESCRIPTION: A. Received in formalin labeled duodenal polyp biopsy is one red ovoid polypoid structure measuring 0.3 x 0.2 x 0.2 cm. Submitted in one cassette. B. Received in formalin labeled antrum is an irregularly-shaped segment of pink-jones soft tissue measuring 0.5 x 0.2 x 0.2 cm. Submitted in one cassette. BSC/KMS1 Disclaimer: The following statement applies to all immunohistochemistry, in situ hybridization, molecular studies, and immunofluorescence testing. The use of one or more reagents in the above tests is regulated as an analyte specific reagent (ASR). These tests were developed and their performance characteristics determined by the clinical laboratories of [facility]. They have not been cleared by the US Food and Drug Administration (FDA). The FDA has determined that such clearance or approval is not necessary. All the above immunostains were performed on paraffin embedded tissue. Appropriate positive and negative controls (where applicable) were run in parallel with the patient's specimen; these controls showed expected staining pattern, with acceptable intensity of staining. Immunohistochemical assays have not been validated on decalcified tissues. Results should be interpreted with caution given the raised possibility of false negativity on decalcified specimens. Professional Performing Location: [place] [address]. DEPARTMENT OF PATHOLOGY AND LABORATORY MEDICINE [place], [place] [address] [email or web address] [facility] -------- MALATHI ZAMBRANO ([id number]) 1970 F NFR Date Time Provider Department 07/28/20 ELIZABETH MEYER AGCARDPOB During your visit today, we recorded the following information about you: Soledad Chacon LPN 07/28/2020 11:14 AM Signed Patient was seen in office on 03/22/2020. Patient was supposed to follow up in 1 month. Please call and schedule over due appointment. Thank you! 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 Thanks Phoebe Mcmanus Allergies As of Date: 07/28/2020 Noted Allergy Reaction VICODIN (HYDROCODONE-ACETAMINOPH E*05/18/2009 8 - GI Upset CODEINE ANTITUSSIVE COUGH 12/10/2014 8 - GI Upset LATEX 05/04/2005 2 - Rash Comments: reddness itching METFORMIN 8 - GI Upset Comments: GI upset RELAFEN (NABUMETONE) 03/29/2007 8 - GI Upset Date Reviewed: 03/22/2020 Reviewed by: Elizabeth Meyer - Fully Assessed Reason for Visit: Appointment [186] Prescriptions as of 07/28/2020 Sig: PEN NEEDLE, DIABETIC 29 GAUGE* Use 1 Needle For Each Dose 3-* OXYCODONE 10 MG TABLET Take 1 tablet by mouth twice * OXYCODONE 10 MG TABLET Take 1 tablet by mouth twice * IBUPROFEN 800 MG TABLET Take 1 tablet by mouth every * FLUCONAZOLE 150 MG TABLET Take by mouth. Take at onset* X AMLODIPINE 10 MG TABLET Take 1 tablet by mouth once d* ERGOCALCIFEROL (VITAMIN D2) 1* Take 1 capsule by mouth one t* MERLYN GLOVER U-100 INSULI* Inject 120 Units subcutaneous* INSULIN ASPART (U-100) 100 UN* WITH FIRST BITE OF FOOD, 30 U* BLOOD PRESSURE TEST KIT-WRIST* 1 Kit once daily. 1 wrist blo* ATENOLOL 25 MG TABLET Take 1 tablet by mouth once d* Patient taking differently: Take 25 mg by mouth once tank* BLOOD-GLUCOSE METER KIT Check blood sugars as directe* MONTELUKAST 10 MG TABLET Take 1 tablet by mouth daily * HYDROCHLOROTHIAZIDE 25 MG TAB* Take 1 tablet by mouth once d* DULOXETINE 30 MG CAPSULE,GIA* Take 1 capsule by mouth once * OMEPRAZOLE 20 MG CAPSULE,GIA* Take 1 capsule by mouth daily* FLUTICASONE PROPIONATE 220 MC* Inhale 2 Puffs as instructed * NYSTATIN 100,000 UNIT/GRAM TO* Apply 1 application to affect* FLASH GLUCOSE SENSOR KIT Check sugars as directed for * CYCLOBENZAPRINE 10 MG TABLET Take 0.5-1 tablets by mouth t* MUPIROCIN 2 % TOPICAL OINTMENT Apply 1 application to affect* BLOOD SUGAR DIAGNOSTIC STRIPS Test blood sugar(s) 5 times d* CHOLECALCIFEROL (VITAMIN D3) * Take 1 capsule by mouth once * CPAP CPAP @ 13 cm of water with hu* COMPOUNDED PRESCRIPTION CPAP supplies--mask per patie* BLOOD-GLUCOSE METER KIT Glucose Meter of Choice (cove* BLOOD SUGAR DIAGNOSTIC STRIPS Test blood sugars 5 times per* INCONTINENCE PAD, LINER, DISP* Change pad 3 to 5 times tank* CYCLOSPORINE 0.05 % EYE DROPS* Use 1 Drop in both eyes twice* COMPOUNDED PRESCRIPTION Bilateral compression Knee Hi* COMPOUNDED PRESCRIPTION KNEE HIGH COMPRESSION STOCKIN* LANCETS tests sugar 4 to 6 times tank* CANE 1 Each. Diagnosis: 724.2 Back* Problem List As Of Date 07/28/2020 Noted Resolved Morbid (severe) obesity due to excess calories * More... EXTRINSIC ASTHMA UNSPECIFIED [J45.909] 03/15/2005 ALLERGIC RHINITIS NOS [J30.9] 04/26/2005 GENERALIZED ANXIETY DIS [F41.1] More... ESOPHAGITIS, UNSPECIFIED [K20.90] ACUTE GASTRITIS W/O HEMORRHAGE [K29.00] GASTROINTEST HEMORR NOS [K92.2] INT HEMORRHOID W/O COMPL [K64.8] Diabetes mellitus type 2, controlled, without c*10/01/2006 Essential hypertension [I10] 10/01/2006 ESOPHAGEAL REFLUX [K21.9] 10/01/2006 DEPRESSIVE DISORDER NEC [F32.9] 06/15/2007 LUMBAGO [M54.5] 08/05/2008 Migraine [G43.909] 03/02/2009 Calcaneal Spur [M77.30] 10/15/2009 COPD (Chronic Obstructive Pulmonary Disease) [J*12/16/2009 Displacement of Lumbar Intervertebral Disc with*12/30/2009 Fibromyalgia [M79.7] 07/25/2010 Acquired spondylolisthesis [M43.10] 07/25/2010 Spondylolysis, 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 Mixed stress and urge urinary incontinence [N39* Left carpal tunnel syndrome [G56.02] 09/11/2013 Uncontrolled type 2 diabetes mellitus without c*08/11/2014 Abdominal pain, left upper quadrant [R10.12] 07/30/2018 Albuminuria [R80.9] 02/08/2015 More... Tubular adenoma of colon [D12.6] 02/05/2015 More... Palpitations [R00.2] 03/15/2020 Intermittent palpitations [R00.2] 03/22/2020 Ventricular tachycardia, non-sustained (HCC) [I*03/22/2020 Encounter Status:Closed by SOLEDAD CHACON on 07/28/20 [facility] No Panel Information [facility] Vital Signs Date Time Vital Sign Value Performing Clinician Barrett perez 10-31-2024 15:41-0400 Body mass index (BMI) [Ratio] 51.76 kg/m2 Malathi Cardoso MD Work Phone: [facility] 10-31-2024 15:41-0400 Body weight 128.37 kg Malathi Cardoso MD Work Phone: [facility] 10-31-2024 15:41-0400 Diastolic blood pressure 74 mm[Hg] Malathi Cardoso MD Work Phone: [facility] 10-31-2024 15:41-0400 Systolic blood pressure 120 mm[Hg] Malathi Cardoso MD Work Phone: [facility] 09-12-2024 16:35-0400 Body height 157.5 cm Aurora Macdonald MD Work Phone: [facility] 09-12-2024 16:35-0400 Body mass index (BMI) [Ratio] 52.46 kg/m2 Aurora Macdonald MD Work Phone: [facility] 09-12-2024 16:35-0400 Body temperature 98.91 [degF] Aurora Macdonald MD Work Phone: [facility] 09-12-2024 16:35-0400 Body weight 130.1 kg Aurora Macdonald MD Work Phone: [facility] 09-12-2024 16:35-0400 Diastolic blood pressure 62 mm[Hg] Aurora Macdonald MD Work Phone: [facility] 09-12-2024 16:35-0400 Heart rate 75 /min Aurora Macdonald MD Work Phone: [facility] 09-12-2024 16:35-0400 Respiratory rate 16 /min Aurora Macdonald MD Work Phone: [facility] 09-12-2024 16:35-0400 SaO2% (BldA) [Mass fraction] 99 % Aurora Macdonald MD Work Phone: [facility] 09-12-2024 16:35-0400 Systolic blood pressure 118 mm[Hg] Aurora Macdonald MD Work Phone: [facility] 05-07-2024 16:14-0500 Body mass index (BMI) [Ratio] 54.03 kg/m2 Aurora Macdonald MD Work Phone: [facility] 05-07-2024 16:14-0500 Body temperature 98.1 [degF] Aurora Macdonald MD Work Phone: [facility] 05-07-2024 16:14-0500 Body weight 134 kg Aurora Macdonald MD Work Phone: [facility] 05-07-2024 16:14-0500 Diastolic blood pressure 70 mm[Hg] Aurora Macdonald MD Work Phone: [facility] 05-07-2024 16:14-0500 Heart rate 83 /min Aurora Macdonald MD Work Phone: [facility] 05-07-2024 16:14-0500 Respiratory rate 16 /min Aurora Macdonald MD Work Phone: [facility] 05-07-2024 16:14-0500 SaO2% (BldA) [Mass fraction] 96 % Aurora Macdonald MD Work Phone: [facility] 05-07-2024 16:14-0500 Systolic blood pressure 109 mm[Hg] Aurora Macdonald MD Work Phone: [facility] 01-11-2024 14:04-0400 Body mass index (BMI) [Ratio] 52.74 kg/m2 Aurora Macdonald MD Work Phone: [facility] 01-11-2024 14:04-0400 Body temperature 98.1 [degF] Aurora Macdonald MD Work Phone: [facility] 01-11-2024 14:04-0400 Body weight 130.8 kg Aurora Macdonald MD Work Phone: [facility] 01-11-2024 14:04-0400 Diastolic blood pressure 72 mm[Hg] Aurora Macdonald MD Work Phone: [facility] 01-11-2024 14:04-0400 Heart rate 79 /min Aurora Macdonald MD Work Phone: [facility] 01-11-2024 14:04-0400 Respiratory rate 16 /min Aurora Macdonald MD Work Phone: [facility] 01-11-2024 14:04-0400 SaO2% (BldA) [Mass fraction] 97 % Aurora Macdonald MD Work Phone: [facility] 01-11-2024 14:04-0400 Systolic blood pressure 118 mm[Hg] Aurora Macdonald MD Work Phone: [facility] 08-28-2023 13:13-0400 Body height 157.5 cm Aurora Macdonald MD Work Phone: [facility] 08-28-2023 13:13-0400 Body mass index (BMI) [Ratio] 53.77 kg/m2 Aurora Macdonald MD Work Phone: [facility] 08-28-2023 13:13-0400 Body weight 133.36 kg Auorra Macdonald MD Work Phone: [facility] 08-28-2023 13:13-0400 Diastolic blood pressure 82 mm[Hg] Aurora Macdonald MD Work Phone: [facility] 08-28-2023 13:13-0400 Heart rate 83 /min Aurora Macdonald MD Work Phone: [facility] 08-28-2023 13:13-0400 Respiratory rate 16 /min Aurora Macdonald MD Work Phone: [facility] 08-28-2023 13:13-0400 Systolic blood pressure 124 mm[Hg] Aurora Macdonald MD Work Phone: [facility] 06-13-2023 17:06-0500 Body temperature 98.2 [degF] Aurora Macdonald MD Work Phone: [facility] 06-13-2023 17:06-0500 Body weight 129.73 kg Aurora Macdonald MD Work Phone: [facility] 06-13-2023 17:06-0500 Diastolic blood pressure 62 mm[Hg] Aurora Macdonald MD Work Phone: [facility] 06-13-2023 17:06-0500 Heart rate 76 /min Aurora Macdonald MD Work Phone: [facility] 06-13-2023 17:06-0500 Respiratory rate 18 /min Aurora Macdonald MD Work Phone: [facility] 06-13-2023 17:06-0500 SaO2% (BldA) [Mass fraction] 98 % Aurora Macdonald MD Work Phone: [facility] 06-13-2023 17:06-0500 Systolic blood pressure 112 mm[Hg] Aurroa Macdonald MD Work Phone: [facility] 04-27-2023 16:32-0500 Body temperature 96.3 [degF] Aurora Macdonald MD Work Phone: [facility] 04-27-2023 16:32-0500 Body weight 130.64 kg Aurora Macdonald MD Work Phone: [facility] 04-27-2023 16:32-0500 Diastolic blood pressure 68 mm[Hg] Aurora Macdonald MD Work Phone: [facility] 04-27-2023 16:32-0500 Heart rate 80 /min Aurora Macdonald MD Work Phone: [facility] 04-27-2023 16:32-0500 Respiratory rate 18 /min Aurora Macdonald MD Work Phone: [facility] 04-27-2023 16:32-0500 SaO2% (BldA) [Mass fraction] 98 % Aurora Macdonald MD Work Phone: [facility] 04-27-2023 16:32-0500 Systolic blood pressure 110 mm[Hg] Aurora Macdonald MD Work Phone: [facility] 02-09-2023 11:14-0400 Body temperature 97.59 [degF] Carmela Nathan CLINICAL SYSTEMS EDUCATOR.TOOL ROOM MACHINIST Work Phone: [facility] 02-09-2023 11:14-0400 Body weight 130.09 kg Carmela Nathan CLINICAL SYSTEMS EDUCATOR.TOOL ROOM MACHINIST Work Phone: [facility] 02-09-2023 11:14-0400 Diastolic blood pressure 72 mm[Hg] Carmela Nathan CLINICAL SYSTEMS EDUCATOR.TOOL ROOM MACHINIST Work Phone: [facility] 02-09-2023 11:14-0400 Heart rate 56 /min Carmela Nathan CLINICAL SYSTEMS EDUCATOR.TOOL ROOM MACHINIST Work Phone: [facility] 02-09-2023 11:14-0400 SaO2% (BldA) [Mass fraction] 95 % Carmela Nathan CLINICAL SYSTEMS EDUCATOR.TOOL ROOM MACHINIST Work Phone: [facility] 02-09-2023 11:14-0400 Systolic blood pressure 128 mm[Hg] Carmela Nathan CLINICAL SYSTEMS EDUCATOR.TOOL ROOM MACHINIST Work Phone: [facility] 06-07-2022 17:17-0500 Body temperature 98.4 [degF] Aurora Macdonald MD Work Phone: [facility] 06-07-2022 17:17-0500 Body weight 127.46 kg Aurora Macdonald MD Work Phone: [facility] 06-07-2022 17:17-0500 Diastolic blood pressure 66 mm[Hg] Aurora Macdonald MD Work Phone: [facility] 06-07-2022 17:17-0500 Heart rate 83 /min Aurora Macdonald MD Work Phone: [facility] 06-07-2022 17:17-0500 Respiratory rate 18 /min Aurora Macdonald MD Work Phone: [facility] 06-07-2022 17:17-0500 SaO2% (BldA) [Mass fraction] 96 % Aurora Macdonald MD Work Phone: [facility] 06-07-2022 17:17-0500 Systolic blood pressure 112 mm[Hg] Aurora Macdonald MD Work Phone: [facility] 11-29-2021 15:29-0400 Body weight 127.01 kg Aurora Macdonald MD Work Phone: [facility] 11-29-2021 15:29-0400 Diastolic blood pressure 64 mm[Hg] Aurora Macdonald MD Work Phone: [facility] 11-29-2021 15:29-0400 Heart rate 84 /min Aurora Macdonald MD Work Phone: [facility] 11-29-2021 15:29-0400 Systolic blood pressure 118 mm[Hg] Aurora Macdonald MD Work Phone: [facility] 06-28-2021 18:45-0500 Body height 154.9 cm Aurora Macdonald MD Work Phone: [facility] 06-28-2021 18:45-0500 Body temperature 98.6 [degF] Aurora Macdonald MD Work Phone: [facility] 06-28-2021 18:45-0500 Body weight 131.54 kg Aurora Macdonald MD Work Phone: [facility] 06-28-2021 18:45-0500 Diastolic blood pressure 64 mm[Hg] Aurora Macdonald MD Work Phone: [facility] 06-28-2021 18:45-0500 Heart rate 94 /min Aurora Macdonald MD Work Phone: [facility] 06-28-2021 18:45-0500 Respiratory rate 16 /min Aurora Macdonald MD Work Phone: [facility] 06-28-2021 18:45-0500 SaO2% (BldA) [Mass fraction] 97 % Aurora Macdonald MD Work Phone: [facility] 06-28-2021 18:45-0500 Systolic blood pressure 130 mm[Hg] Aurora Macdonald MD Work Phone: [facility] Encounters Encounter Date Encounter Type Care Provider Facility Start: 01-02-2025 End: 01-02-2025 Preprocedural examination done Juanita Hanna MD Work Phone: [facility] Start: 01-02-2025 End: 01-02-2025 Telemedicine consultation with patient Juanita Hanna MD Work Phone: OB/Gynecology Start: 01-02-2025 End: 01-02-2025 ambulatory Juanita Hanna MD Work Phone: OB/Gynecology Comment on above: Abnormal uterine ble eding (AUB) (Primary Dx); Endometrial polyp; Pre-op exam Start: 12-28-2024 End: 12-30-2024 Refill Aurora Macdonald MD Work Phone: [facility] [place] Comment on above: Refill Request Start: 12-22-2024 End: 12-24-2024 Telephone encounter Aurora Macdonald MD Work Phone: [facility] [place] Comment on above: Orders Start: 12-04-2024 End: 12-04-2024 Telemedicine consultation with patient Malathi Cardoso MD Work Phone: OB/Gynecology Start: 12-04-2024 End: 12-04-2024 ambulatory Malathi Cardoso MD Work Phone: OB/Gynecology Comment on above: Abnormal uterine ble eding due to endometrial polyp (Primary Dx) Start: 11-27-2024 End: 11-27-2024 Telephone encounter Aurora Macdonald MD Work Phone: Internal Medicine [place] Comment on above: Prior authorization for CPAP supplies Start: 11-25-2024 End: 11-25-2024 Refill Aurora Macdonald MD Work Phone: Internal Medicine [place] Comment on above: Refill Request Start: 11-24-2024 End: 11-24-2024 Telephone encounter Jose Oh MD Work Phone: OB/Gynecology Comment on above: Results Start: 11-21-2024 End: 11-21-2024 Patient encounter procedure Us Tech 1 [employer] OB/Gynecology Start: 11-21-2024 End: 11-21-2024 ambulatory [employer] Us Remote Work Phone: OB/Gynecology Start: 11-18-2024 End: 11-18-2024 Telemedicine consultation with patient Malathi Cardoso MD Work Phone: OB/Gynecology Start: 11-18-2024 End: 11-18-2024 ambulatory Malathi Cardoso MD Work Phone: OB/Gynecology Comment on above: Dysuria (Primary Dx) ; Abnormal uterine bleeding due to endometrial polyp Start: 11-07-2024 End: 11-07-2024 Refill Chris Brush APRN.SUBSTITUTE NURSE Work Phone: Internal Medicine [place] Comment on above: Refill Request Start: 11-04-2024 End: 11-04-2024 Telephone encounter Chris Brush APRN.SUBSTITUTE NURSE Work Phone: Internal Medicine [place] Comment on above: insurance not coveri ng one touch test strips Start: 11-03-2024 End: 11-03-2024 Refill Aurora Macdonald MD Work Phone: Internal Medicine [place] Comment on above: Refill Request Start: 10-31-2024 End: 10-31-2024 Patient encounter procedure Malathi Cardoso MD Work Phone: OB/Gynecology Comment on above: Abnormal uterine ble eding (AUB) (Primary Dx); Screening for cervical cancer; Screening for human papillomavirus (HPV) Start: 10-31-2024 End: 10-31-2024 ambulatory AURORA MACDONALD Facility:[facility] Start: 10-29-2024 End: 11-06-2024 Telephone encounter Malathi Cardoso MD Work Phone: OB/Gynecology Comment on above: Patient Update Start: 10-23-2024 End: 11-10-2024 Follow-up encounter Malathi Cardoso MD Work Phone: OB/Gynecology Start: 10-21-2024 End: 10-21-[address] [facility] Facility:[facility] Start: 09-12-2024 End: 09-12-2024 Office outpatient visit 40 minutes Aurora Macdonald MD Work Phone: Internal Medicine [place] Comment on above: ZHAO (obstructive sle ep apnea) (Primary Dx); Type 2 diabetes mellitus with diabetic neuropathy, with long-term current use of insulin (HCC); Right medial knee pain; Class 3 severe obesity due to excess calories with serious comorbidity and body mass index (BMI) of 50.0 to 59.9 in adult ([facility]); Generalized anxiety disorder; Other depression; Vitamin D deficiency; Plantar fasciitis Start: 09-12-2024 End: 09-12-[address] [facility] Facility:[facility] Start: 09-10-2024 End: 09-10-2024 [facility] Facility:[facility] Start: 09-05-2024 End: 09-05-2024 Refill Aurora Macdonald MD Work Phone: Internal Medicine [place] Comment on above: Refill Request Start: 09-03-2024 End: 09-04-2024 ambulatory Aurora Macdonald MD Work Phone: Internal Medicine [place] Comment on above: 800 Ibuprofen Start: 08-25-2024 End: 08-26-2024 Refill Aurora Macdonald MD Work Phone: Internal Medicine [place] Comment on above: Refill Request Start: 08-21-2024 End: 08-21-2024 Refill Chris Brush APRN.CNS Work Phone: Internal Medicine [place] Comment on above: Refill Request Start: 06-13-2024 End: 06-18-2024 Telephone encounter Aurora Macdonald MD Work Phone: Internal Medicine [place] Comment on above: Orders Start: 05-23-2024 End: 05-24-2024 Refill Darlene Davies APRN.CNP Work Phone: Internal Medicine [place] Comment on above: Refill Request Start: 05-10-2024 End: 05-10-2024 ambulatory AURORA MACDONALD Facility:[facility] Start: 05-07-2024 End: 05-07-2024 [facility] AURORA MACDONALD Facility:[facility] Start: 05-07-2024 End: 05-07-2024 Office outpatient visit 40 minutes Aurora Macdonald MD Work Phone: Internal Medicine [place] Comment on above: ZHAO (obstructive sle ep apnea) (Primary Dx); Episodic tension-type headache, not intractable; Neck pain, musculoskeletal; Muscle spasm of back; Type 2 diabetes mellitus with diabetic neuropathy, with long-term current use of insulin ([facility]); Plantar fasciitis of left foot; Drug-induced constipation; Muscle spasm; Essential (primary) hypertension Start: 01-12-2024 ambulatory Aurora huffman MD Work Phone: Internal Medicine [place] Comment on above: Forgot about request Start: 01-12-2024 E-mail encounter fro m caregiver Aurora Macdonald MD Work Phone: Internal Medicine [place] Start: 01-11-2024 End: 01-11-2024 Office outpatient visit 40 minutes Aurora Macdonald MD Work Phone: Internal Medicine [place] Comment on above: Controlled type 2 di abetes mellitus without complication, with long-term current use of insulin (HCC) (Primary Dx); Class 3 severe obesity due to excess calories with body mass index (BMI) of 50.0 to 59.9 in adult, unspecified whether serious comorbidity present ([facility]); Primary osteoarthritis of right knee; Abnormal mammogram; Palpitations; Essential hypertension; Vitamin D deficiency; Tachycardia; Displacement of lumbar intervertebral disc without myelopathy; Spondylolysis, lumbosacral; Lumbago; Left foot pain; Encounter for long-term current use of medication; ZHAO (obstructive sleep apnea) Start: 01-11-2024 End: 01-11-2024 [facility] AURORA MACDONALD Facility:[facility] Start: 12-27-2023 Refill Aurora huffman MD Work Phone: Internal Medicine [place] Comment on above: Refill Request Start: 11-22-2023 Refill Aurora huffman MD Work Phone: Internal Medicine [place] Comment on above: Refill Request Start: 11-15-2023 Telephone encounter Aurora hernandez MD Work Phone: Internal Medicine [place] Comment on above: Forms for [employer] Start: 11-12-2023 Telephone encounter Aurora hernandez MD Work Phone: Internal Medicine [place] Comment on above: Lab Orders Start: 08-28-2023 End: 08-28-2023 Office outpatient visit 40 minutes Aurora Macdonald MD Work Phone: Internal Medicine [place] Comment on above: Chronic pain of righ t knee (Primary Dx); Primary osteoarthritis of right knee; Right foot pain; Type 2 diabetes mellitus with diabetic neuropathy, with long-term current use of insulin (HCC); Essential hypertension; Vitamin D deficiency; Medication management; Controlled type 2 diabetes mellitus without complication, with long-term current use of insulin (HCC); Abnormal mammogram Start: 08-17-2023 Documentation procedure Mammog michelle Coordinator [facility] Start: 08-17-2023 Letter encounter Mammography Coordinator [facility] Start: 08-16-2023 End: 08-16-2023 Subsequent hospital visit by physician Jake Mammaparna [facility] Mammogram Start: 07-12-2023 Telephone encounter Aurora hernandez MD Work Phone: Internal Medicine [place] Comment on above: Consult Start: 06-13-2023 End: 06-13-2023 Office outpatient visit 25 minutes Aurora Macdonald MD Work Phone: Internal Medicine [place] Comment on above: Dysuria (Primary Dx) ; Bladder spasms; Polyarthralgia; Chronic pain of right knee; Left hip pain Start: 06-05-2023 ambulatory VINCENZO FONSECA Facility :[facility] Start: 06-05-2023 End: 06-05-2023 Subsequent hospital visit by physician Radio General Sarika Pierre Work Phone: Radiology Comment on above: Right knee pain, uns pecified chronicity [M25.561] Start: 05-07-2023 Refill Aurora huffman MD Work Phone: Internal Medicine [place] Comment on above: Refill Request Start: 04-27-2023 End: 05-09-2023 Office outpatient visit 25 minutes Aurora Macdonald MD Work Phone: Internal Medicine [place] Comment on above: Type 2 diabetes brannon itus with diabetic neuropathy, with long- term current use of insulin (HCC) (Primary Dx); ZHAO (obstructive sleep apnea); Drug-induced constipation; Chronic cough; Class 3 severe obesity due to excess calories with serious comorbidity and body mass index (BMI) of 50.0 to 59.9 in adult (HCC); Shortness of breath; Need for vaccination Start: 04-20-2023 Refill Darlene Keke A PRN.TOOL ROOM MACHINIST Work Phone: Internal Medicine [place] Comment on above: Refill Request Start: 04-17-2023 Refill Darlene Keke A PRN.TOOL ROOM MACHINIST Work Phone: Internal Medicine [place] Comment on above: Refill Request Start: 03-27-2023 Telephone encounter Aurora hernandez MD Work Phone: Internal Medicine [place] Comment on above: Medication Problem Start: 02-12-2023 Telephone encounter Carmela cruz CLINICAL SYSTEMS EDUCATOR.TOOL ROOM MACHINIST Work Phone: Family Medicine [place] Comment on above: Results Start: 02-09-2023 End: 02-09-2023 Subsequent hospital visit by physician [facility] [place] Work Phone: Radiology Comment on above: SOB (shortness of br eath) [R06.02] Start: 02-09-2023 End: 02-09-2023 Patient encounter procedure Carmela Nathan CLINICAL SYSTEMS EDUCATOR.TOOL ROOM MACHINIST Work Phone: Family Medicine [place] Comment on above: SOB (shortness of br eath) (Primary Dx); Type 2 diabetes mellitus with diabetic neuropathy, with long-term current use of insulin (HCC) Start: 01-29-2023 End: 01-29-2023 Patient encounter procedure Roberta Holman PA-C Work Phone: Orthopaedics Comment on above: Trigger finger of ri ght thumb (Primary Dx) Start: 01-22-2023 ambulatory Aurora huffman MD Work Phone: Internal Medicine [place] Comment on above: Ozempic Start: 01-01-2023 Refill Aurora huffman MD Work Phone: Family Medicine [place] Comment on above: Refill Request Start: 11-27-2022 Telephone encounter Vincenzo loaiza MD Work Phone: Orthopaedics Comment on above: Appointment Start: 11-08-2022 ambulatory Aurora huffman MD Work Phone: Internal Medicine [place] Start: 11-08-2022 Telephone encounter Vincenzo loaiza MD Work Phone: Orthopaedics Comment on above: Schedule Surgery Start: 11-06-2022 End: 11-06-2022 Patient encounter procedure Vincenzo Fonseca MD Work Phone: Orthopaedics Comment on above: Shoulder impingement (Primary Dx); Calcific tendonitis of right shoulder Start: 11-06-2022 End: 11-06-2022 Subsequent hospital visit by physician [facility] [place] Pierre Work Phone: Radiology Comment on above: Right shoulder pain, unspecified chronicity [M25.511] Start: 11-06-2022 Telephone encounter Aurora hernandez MD Work Phone: Internal Medicine [place] Comment on above: Orders Start: 10-12-2022 Telephone encounter Aurora hernandez MD Work Phone: Family Medicine [place] Comment on above: [facility] Vent[facility] Start: 10-11-2022 Telephone encounter Roberta davis PA-C Work Phone: Orthopaedics Comment on above: Patient Update Start: 09-22-2022 Telephone encounter Aurora hernandez MD Work Phone: Internal Medicine [place] Comment on above: Medication Problem Start: 09-18-2022 Orders Only Darlene Keke A PRN.TOOL ROOM MACHINIST Work Phone: Internal Medicine [place] Start: 09-14-2022 Telephone encounter Aurora hernandez MD Work Phone: Internal Medicine [place] Comment on above: New CPAP Start: 09-08-2022 End: 09-08-2022 Patient encounter procedure Roberta Holman PA-C Work Phone: Orthopaedics Comment on above: Wrist arthritis (Lauren merlin Dx); Pain of right thumb Start: 09-01-2022 Orders Only Darlene Keke A PRN.TOOL ROOM MACHINIST Work Phone: Internal Medicine [place] Start: 08-23-2022 ambulatory Aurora huffman MD Work Phone: Internal Medicine [place] Comment on above: Shortness of Breath Start: 08-14-2022 ambulatory Aurora huffman MD Work Phone: Internal Medicine [place] Comment on above: Resubscribe ozempic medication Start: 08-11-2022 Telephone encounter Aurora hernandez MD Work Phone: Internal Medicine [place] Comment on above: Orders Start: 08-04-2022 Orders Only Chris Brush A PRN.SUBSTITUTE NURSE Work Phone: Internal Medicine [place] Start: 08-04-2022 Telephone encounter Aurora hernandez MD Work Phone: Internal Medicine [place] Comment on above: Prior Authorization Request Start: 07-25-2022 Orders Only Chris Brush A PRN.SUBSTITUTE NURSE Work Phone: Internal Medicine [place] Start: 07-18-2022 Refill Aurora huffman MD Work Phone: Internal Medicine [place] Comment on above: Refill Request Start: 06-07-2022 End: 06-07-2022 Office outpatient visit 40 minutes Aurora Macdonald MD Work Phone: Internal Medicine [place] Comment on above: Mild persistent asth ma with acute exacerbation (Primary Dx); Eosinophilic asthma; Type 2 diabetes mellitus with diabetic neuropathy, with long-term current use of insulin ([facility]); Essential hypertension; Vitamin D deficiency; Chronic obstructive pulmonary disease, unspecified COPD type (HCC); Medication management; Grief reaction Start: 06-05-2022 Refill Aurora huffman MD Work Phone: Internal Medicine [place] Comment on above: Refill Request Start: 06-01-2022 Telephone encounter Aurora hernandez MD Work Phone: Internal Medicine [place] Comment on above: Medication Request; Patient Update Start: 05-11-2022 Refill Darlene RECIO.TOOL ROOM MACHINIST Work Phone: Internal Medicine [place] Comment on above: Refill Request Start: 04-20-2022 Evaluation and management of inpatient HEATH [facility] Start: 04-18-2022 End: 04-18-2022 ambulatory [facility] Start: 03-29-2022 ambulatory [facility] Start: 03-29-2022 End: 03-29-2022 Subsequent hospital visit by physician Nadira Roger MD Work Phone: [facility] [place] [facility] Start: 03-29-2022 ambulatory [facility] Start: 03-02-2022 Telephone encounter Aurora hernandez MD Work Phone: Internal Medicine [place] Comment on above: Renew HEAP letter Start: 03-01-2022 ambulatory [facility] Start: 02-21-2022 Evaluation and management of inpatient Heath [facility] Start: 02-14-2022 ambulatory [facility] Start: 02-14-2022 Encounter for other preprocedural examination [facility] Start: 02-10-2022 ambulatory [facility] Start: 02-10-2022 Encounter for other preprocedural examination [facility] Start: 02-10-2022 Encounter for preprocedural laboratory examination [facility] Start: 02-10-2022 End: 02-10-2022 Patient encounter status Jose Mohan CLINICAL SYSTEMS EDUCATOR - TOOL ROOM MACHINIST Work Phone: [facility] EKG Start: 02-10-2022 End: 02-10-2022 Preprocedural examination done Jose Mohan APRN - [facility] Start: 02-10-2022 End: 02-10-2022 Subsequent hospital visit by physician Jose Mohan APRN - TOOL ROOM MACHINIST Work Phone: [facility] EKG Comment on above: Pre-operative exam; Pre-operative laboratory examination; Gastroesophageal reflux disease without esophagitis; Morbid obesity due to excess calories (HCC); ZHAO (obstructive sleep apnea) Start: 02-07-2022 Telephone encounter Aurora hernandez MD Work Phone: Family Medicine [place] Comment on above: Release Of Medical R ecords Start: 02-01-2022 ambulatory UNKNOWN PROVIDER [facility] Start: 02-01-2022 End: 02-01-2022 Subsequent hospital visit by physician Heath Panchal MD Work Phone: [facility] Start: 01-30-2022 Telephone encounter Aurora hernandez MD Work Phone: Internal Medicine [place] Comment on above: Release Of Medical R ecords Start: 01-26-2022 Telephone encounter Aurora hernandez MD Work Phone: Internal Medicine [place] Comment on above: Fax OV note Start: 01-25-2022 ambulatory UNKNOWN PROVIDER [facility] Start: 01-25-2022 End: 01-25-2022 Subsequent hospital visit by physician Nadira Roger MD Work Phone: [facility] [place] [facility] Start: 01-23-2022 Telephone encounter Aurora hernandez MD Work Phone: Internal Medicine [place] Comment on above: Prior Authorization on [employer] Results Start: 01-20-2022 Refill Aurora huffman MD Work Phone: Internal Medicine [place] Comment on above: Refill Request Start: 12-23-2021 ambulatory UNKNOWN PROVIDER [facility] Start: 12-23-2021 End: 12-23-2021 Subsequent hospital visit by physician Martha Abdullahi PSYD Work Phone: [facility] Start: 12-22-2021 ambulatory [facility] Start: 12-21-2021 ambulatory Aurora Macdonald [facility] Start: 12-21-2021 End: 12-21-2021 Subsequent hospital visit by physician Nadira Roger MD Work Phone: [facility] Start: 12-21-2021 Telephone encounter Aurora hernandez MD Work Phone: Internal Medicine [place] Comment on above: Prior authorizluann r equested Start: 12-09-2021 [facility] Start: 12-09-2021 End: 12-09-2021 Subsequent hospital visit by physician Martha Abdullahi PSYD Work Phone: [facility] Start: 11-30-2021 End: 11-30-2021 Subsequent hospital visit by physician Nadira Roger MD [facility] Start: 11-30-2021 ambulatory Aurora huffman MD Work Phone: Internal Medicine [facility] Start: 11-29-2021 End: 11-29-2021 Office outpatient visit 25 minutes Aurora Macdonald MD Work Phone: Internal Medicine [place] Comment on above: Elevated AST (SGOT) (Primary Dx); Hepatosplenomegaly; Hepatic steatosis; Type 2 diabetes mellitus with diabetic neuropathy, with long-term current use of insulin (HCC); Class 3 severe obesity due to excess calories with serious comorbidity and body mass index (BMI) of 50.0 to 59.9 in adult (HCC) Start: 11-16-2021 End: 11-16-2021 Office outpatient visit 15 minutes Aurora Macdonald MD Work Phone: Internal Medicine [place] Comment on above: Grief reaction (Prim nisa Dx) Start: 11-16-2021 Telephone encounter Alejandro NESBITT Work Phone: Psychology Comment on above: Consult (Initial [facility] W Pt Outreach) Start: 10-26-2021 ambulatory Aurora Moreno [facility] Start: 10-05-2021 ambulatory Aurora Moreno [facility] Start: 10-05-2021 End: 10-05-2021 Subsequent hospital visit by physician Jose Guajardo CNP Work Phone: [facility] Comment on above: Generalized abdomina l pain; Hypertension, unspecified type; Chronic obstructive pulmonary disease, unspecified COPD type ([facility]); ZHAO (obstructive sleep apnea); Gastroesophageal reflux disease without esophagitis; Back pain, unspecified back location, unspecified back pain laterality, unspecified chronicity; Diabetes mellitus type 2 in obese ([facility]); Vitamin D deficiency; Class 3 severe obesity due to excess calories with serious comorbidity and body mass index (BMI) of 50.0 to 59.9 in adult ([facility]) Start: 10-04-2021 End: 10-04-2021 ambulatory Aurora Macdonald MD Work Phone: Internal Medicine [place] Comment on above: LUQ pain (Primary Dx ); Gastroesophageal reflux disease without esophagitis; Nausea; Hiatal hernia; Type 2 diabetes mellitus with diabetic neuropathy, with long-term current use of insulin ([facility]); Displacement of lumbar intervertebral disc without myelopathy; Spondylolysis, lumbosacral; Coccygeal pain; Class 3 severe obesity due to excess calories with serious comorbidity and body mass index (BMI) of 50.0 to 59.9 in adult ([facility]) Start: 10-04-2021 End: 10-04-2021 Telemedicine consultation with patient Aurora Macdonald MD Work Phone: [facility] [place] Start: 09-28-2021 ambulatory Aurora [facility] Start: 09-28-2021 End: 09-28-2021 Subsequent hospital visit by physician Nadira Roger MD Work Phone: [facility] [place] [facility] Comment on above: Refill Request Start: 09-20-2021 End: 09-20-2021 ambulatory Katie Wilde MD Work Phone: Pulmonary Medicine Comment on above: Mild persistent asth ma without complication (Primary Dx); Morbid obesity (HCC) Start: 09-20-2021 End: 09-20-2021 Telemedicine consultation with patient Katie Wilde MD Work Phone: [place] [facility] Start: 09-19-2021 End: 09-19-2021 ambulatory UNKNOWN PROVIDER [facility] Start: 08-25-2021 End: 08-25-2021 Patient encounter procedure Vincenzo Fonseca MD Work Phone: Orthopaedics Comment on above: Trigger finger of le ft thumb (Primary Dx) Start: 08-24-2021 ambulatory Aurora [facility] Start: 07-27-2021 [facility] Start: 07-27-2021 End: 07-27-2021 Subsequent hospital visit by physician Nadira Roger MD Work Phone: [facility] Start: 07-26-2021 ambulatory UNKNOWN PROVIDER [facility] Start: 06-29-2021 ambulatory UNKNOWN PROVIDER [facility] Start: 06-28-2021 End: 06-28-2021 Patient encounter procedure Aurora Macdonald MD Work Phone: Internal Medicine [place] Comment on above: Displacement of lumb ar intervertebral disc without myelopathy (Primary Dx); Coccygeal pain; Type 2 diabetes mellitus with diabetic neuropathy, with long-term current use of insulin ([facility]); Type 2 diabetes mellitus with hyperglycemia, with long-term current use of insulin ([facility]); Spondylolysis, lumbosacral; Thumb pain, left; Vitamin D deficiency; Class 3 severe obesity due to excess calories with serious comorbidity and body mass index (BMI) of 50.0 to 59.9 in adult ([facility]); Medication management Start: 06-28-2021 ambulatory UNKNOWN PROVIDER [facility] Start: 06-28-2021 End: 06-28-2021 Subsequent hospital visit by physician Heath Panchal MD Work Phone: [facility] Start: 06-06-2021 ambulatory UNKNOWN PROVIDER [facility] Start: 05-18-2021 ambulatory UNKNOWN PROVIDER [facility] Procedures Date Procedure Procedure Detail Performing Clinician Start: 11-21-2024 Us pelvic nonobstetr ic real-time image complete Malathi Cardoso MD Work Phone: Start: 06-13-2023 Culture bacterial quanttative colony count urine Aurora Macdonald MD Work Phone: Start: 06-13-2023 Urnls dip stick/tabl et rgnt auto w/o microscopy Aurora Macdonald MD Work Phone: Start: 06-05-2023 Radex hip unilateral with pelvis 2-3 views Vincenzo Fonseca MD Work Phone: Start: 02-09-2023 Radiologic exam ches t 2 views Carmela Nathan CLINICAL SYSTEMS EDUCATOR.TOOL ROOM MACHINIST Work Phone: Start: 02-09-2023 Ecg routine ecg w/le ast 12 lds i&r only [facility] Provider Start: 11-06-2022 Arthrocentesis aspir &/inj major jt/bursa w/o us Vincenzo Fonseca MD Work Phone: Start: 11-06-2022 Radex shoulder compl ete minimum 2 views Vincenzo Fonseca MD Work Phone: Start: 09-08-2022 Arthrocentesis aspir &/inj interm jt/burs w/o us Roberta Holman PA-C Work Phone: Start: 02-10-2022 Basic metabolic pane l calcium total Jose R Bridle CLINICAL SYSTEMS EDUCATOR - TOOL ROOM MACHINIST Work Phone: Start: 10-05-2021 Comprehensive metabo lic panel Jose R Bridle CLINICAL SYSTEMS EDUCATOR - TOOL ROOM MACHINIST Work Phone: Start: 10-05-2021 Lipid panel Jose R Br idle CLINICAL SYSTEMS EDUCATOR - TOOL ROOM MACHINIST Work Phone: Start: 01-13-2019 Colonoscopy Aurora parsons MD Work Phone: Start: 09-19-2011 Mammography Aurora parsons MD Work Phone: Plan of Treatment Date Care Activity Detail Author Start: 2034 Pneumococcal 0-64 years Vaccine (2 of 2 - PPSV23) Pneumococcal 0-64 years Vaccine (2 of 2 - PPSV23) [facility] Start: 01-13-[address] [facility] Start: 01-13-2029 Colorectal Cancer Screening Colorectal Cancer Screening [facility] Start: 01-13-2029 Screening for malignant neoplasm of colon [facility] Start: 10-31-2025 BP Controlled (<130/80) BP Controlled (<130/80) [facility] Start: 10-31-2025 Screening for malignant neoplasm of cervix Cervical Cancer Screening [facility] Start: 09-23-2025 End: 09-23-2025 Patient encounter procedure 09/23/2025 3:00 PM EDT Office Visit Internal Medicine [place] [address] [place] [id number] Aurora Macdonald MD [address] [facility] [place] [address] 4 month follow up Internal Medicine [place] Comment on above: 4 month follow up Start: 09-12-2025 Annual PCP Team Chronic Disease Visit Annual PCP Team Chronic Disease Visit [facility] Start: 09-12-2025 BP Controlled (<130/80) BP Controlled (<130/80) [facility] Start: 05-20-2025 End: 05-20-2025 Patient encounter procedure 05/20/2025 4:00 PM EST Office Visit Internal Medicine [place] [address] [place] [address] Aurora Macdonald MD [address] [facility] [place] [address] 4 month follow up Internal [facility] [place] Comment on above: 4 month follow up Start: 05-07-2025 Annual PCP Team Chronic Disease Visit Annual PCP Team Chronic Disease Visit [facility] Start: 05-07-2025 BP Controlled (<130/80) BP Controlled (<130/80) [facility] Start: 03-12-2025 Hemoglobin A1c measurement HbA1C [facility] Start: 02-02-[address] [facility] Start: 01-14-2025 End: 01-14-2025 Patient encounter procedure Internal Medicine [place] Comment on above: 4 month follow up Physical Start: 01-10-2025 Annual PCP Team Chronic Disease Visit Annual PCP Team Chronic Disease Visit [facility] Start: 01-10-2025 BP Controlled (<130/80) BP Controlled (<130/80) [facility] Start: 01-02-2025 End: 01-02-2025 Admission to same day surgery center 01/02/2025 2:00 PM EDT [facility] OB/Gynecology [address] [place] [address] Juanita Mendosa MD [address] [place] [address] pre-op surgery 01/09 [facility] OB/Gynecology Comment on above: pre-op surgery 01/09 [facility] Start: 12-26-2024 End: 12-26-2024 Patient encounter procedure 12/26/2024 2:10 PM EDT Appointment Mammogram [address] [place] [address] Mammogram Start: 12-23-2024 End: 03-24-2025 Bacteria identified in Urine by Culture BACTERIAL CULTURE, URINE Microbiology Routine UTI symptoms Expected: 12/23/2024, Expires: 03/24/2025 [facility] Comment on above: Expected: 12/23/2024, Expires: Start: 12-23-2024 End: 03-24-2025 Basic metabolic 2000 panel - Serum or Plasma BASIC METABOLIC PANEL Lab Routine Controlled type 2 diabetes mellitus without complication, with long-term current use of insulin ([facility]) Encounter for long-term current use of medication Expected: 12/23/2024, Expires: 03/24/2025 [facility] Comment on above: Expected: 12/23/2024, Expires: Start: 12-23-2024 End: 03-24-2025 Urinalysis complete panel - Urine URINALYSIS, WITH MICROSCOPIC Lab Routine UTI symptoms Expected: 12/23/2024, Expires: 03/24/2025 [facility] Work Phone: Comment on above: Expected: 12/23/2024, Expires: Start: 12-04-2024 End: 12-04-2024 ambulatory 12/04/2024 9:20 AM EDT [facility] OB/Gynecology [address] [place] [address] Malathi Cardoso MD [address] [place] [address] Discuss surgical management - see result note. Wants to talk with first OB/Gynecology Comment on above: Discuss surgical management - see result note. Wants to talk with first Start: 12-01-2024 Influenza vaccination Influenza Vaccine (#1) [facility] Comment on above: Postponed from 02/03/2024 (Declined at t his time) Start: 11-21-2024 End: 11-21-2024 ambulatory 11/21/2024 3:30 PM EDT Procedure OB/Gynecology [address] [place] [address] Remote, [employer] Operator [facility] [address] [place] [address] Abnormal uterine bleeding due to endometrial polyp [N93.9, N84.0] OB/Gynecology Comment on above: Abnormal uterine bleeding due to endomet rial polyp [N93.9, N84.0] Start: 11-18-2024 End: 11-18-2024 ambulatory 11/18/2024 3:20 PM EDT [facility] OB/Gynecology [address] [place] [address] Malathi Cardoso MD [address] [place] [address] Discuss options OB/Gynecology Comment on above: Discuss options Start: 11-18-2024 End: 02-17-2025 Bacteria identified in Urine by Culture BACTERIAL CULTURE, URINE Microbiology Routine Dysuria Expected: 11/18/2024, Expires: 02/17/2025 [facility] Comment on above: Expected: 11/18/2024, Expires: Start: 11-18-2024 End: 02-17-2025 Urinalysis complete panel - Urine URINALYSIS, WITH MICROSCOPIC Lab Routine Dysuria Expected: 11/18/2024, Expires: 02/17/2025 [facility] Comment on above: Expected: 11/18/2024, Expires: Start: 11-18-2024 End: 11-18-2025 US Pelvis PELVIC US [facility] Imaging Routine Abnormal uterine bleeding due to endometrial polyp Expected: 11/18/2024, Expires: 11/18/2025 [facility] Work Phone: Comment on above: Expected: 11/18/2024, Expires: Start: 11-15-2024 Hepatitis B screening Urine Albumin:Creatinine Ratio [facility] Start: 11-08-2024 Hemoglobin A1c measurement HbA1C [facility] Start: 10-31-2024 Hepatitis B surface antibody level LDL Cholesterol [facility] Start: 10-28-2024 HPV TESTING HPV TESTING [facility] Start: 10-28-2024 PAP TESTING PAP TESTING [facility] Start: 10-28-2024 Screening for malignant neoplasm of cervix [facility] Start: 09-12-2024 End: 09-12-2024 Patient encounter procedure 09/12/2024 4:40 PM EDT Office Visit Internal Medicine [place] [address] [place] [address] Aurora Macdonald MD [address] [place] [address] 4 month follow up Internal Medicine [place] Comment on above: 4 month follow up Start: 08-27-2024 Annual PCP Team Chronic Disease Visit Annual PCP Team Chronic Disease Visit [facility] Start: 08-15-2024 Screening for malignant neoplasm of breast Mammogram Screening [facility] Start: 07-10-2024 End: 07-10-2024 Patient encounter procedure 07/10/2024 3:00 PM EST Office Visit Neurology [address] [place] [address] Jose [place], CHAPITO.TOOL ROOM MACHINIST [address] [place] [address] sleep apnea Neurology Comment on above: sleep apnea Start: 06-17-2024 End: 06-17-2024 Patient encounter procedure 06/17/2024 3:00 PM EST Office Visit Endocrinology [address] [place] [address] Luz Elena Nelson MD [address] [place] [address] ype 2 diabetes mellitus with diabetic neuropathy, with long-term current use of insulin (HCC) [E11.40, Z79.4] Endocrinology Comment on above: ype 2 diabetes mellitus with diabetic ne uropathy, with long-term current use of insulin (HCC) [E11.40, Z79.4] Start: 06-13-2024 Annual PCP Team Chronic Disease Visit Annual PCP Team Chronic Disease Visit [facility] Start: 06-13-2024 BP Controlled (<130/80) BP Controlled (<130/80) [facility] Start: 05-07-2024 End: 05-07-2024 Patient encounter procedure 05/07/2024 3:40 PM EST Office Visit Internal Medicine [place] [address] [place] [address] Aurora Macdonald MD [address] [place] [address] 4 mo follow up Internal Medicine [place] Comment on above: 4 mo follow up Start: 05-03-2024 Hemoglobin A1c measurement HbA1C [facility] Start: 04-27-2024 Annual PCP Team Chronic Disease Visit Annual PCP Team Chronic Disease Visit [facility] Start: 04-27-2024 BP Controlled (<130/80) BP Controlled (<130/80) [facility] Start: 03-03-2024 End: 03-03-2024 Patient encounter procedure 03/03/2024 10:30 AM EDT Office Visit Orthopaedics [address] [place], [place] [id number] Vincenzo Fonseca MD [address] [place] [address] Middle finger on left hand is sticking and in pain Orthopaedics Comment on above: Middle finger on left hand is sticking a nd in pain Start: 02-10-2024 ANNUAL PCP TEAM CHRONIC DISEASE VISIT ANNUAL PCP TEAM CHRONIC DISEASE VISIT [facility] Start: 02-10-2024 BP CONTROLLED (<130/80) BP CONTROLLED (<130/80) [facility] Start: 02-10-2024 Covid-19 Vaccine () Covid-19 Vaccine () [facility] Comment on above: Postponed from 02/02/2023 (Declined at t his time) Start: 02-10-2024 COVID-19 VACCINE (4 - Pfizer series) COVID-19 VACCINE (4 - Pfizer series) [facility] Comment on above: Postponed from 07/02/2021 (Declined at t his time) Start: 02-10-2024 Hepatitis B surface antibody level LDL Cholesterol [facility] Start: 02-10-2024 PNEUMOCOCCAL (2 - PCV) PNEUMOCOCCAL (2 - PCV) [facility] Comment on above: Postponed from 05/01/2012 (Declined at t his time) Start: 02-10-2024 Pneumococcal vaccination Pneumococcal Vaccine (2 - PCV) [facility] Comment on above: Postponed from 05/01/2012 (Declined at t his time) Start: 02-10-[address] [facility] Comment on above: Postponed from 03/23/2007 (Declined at t his time) Start: 02-03-2024 Covid-19 Vaccine ( season) Covid-19 Vaccine () [facility] Start: 02-03-2024 Covid-19 Vaccine () Covid-19 Vaccine () [facility] Start: 02-03-[address] [facility] Start: 01-11-2024 End: 01-11-2024 Patient encounter procedure 01/11/2024 2:00 PM EDT Office Visit Internal Medicine [place] [address] [place] [address] Aurora Macdonald MD [address] [facility] [place] [address] 4 month follow up Internal Medicine [place] Comment on above: 4 month follow up Start: 12-02-[address] [facility] Comment on above: Postponed from 02/02/2023 (Declined at t his time) Start: 11-30-2023 Hepatitis B screening URINE ALBUMIN:CREATININE RATIO [facility] Start: 11-12-2023 End: 02-11-2024 Microalbumin/Creatinine [Mass Ratio] in Urine ALBUMIN/CREATININE RATIO, URINE Lab Routine Type 2 diabetes mellitus with diabetic neuropathy, with long-term current use of insulin (HCC) Expected: 11/12/2023, Expires: 02/11/2024 [facility] Work Phone: Comment on above: Expected: 11/12/2023, Expires: Start: 08-28-2023 End: 11-27-2023 25-hydroxyvitamin D3 [Mass/volume] in Serum or Plasma VITAMIN D 25 HYDROXY Lab Routine Vitamin D deficiency Medication management Expected: 08/28/2023, Expires: 11/27/2023 [facility] Comment on above: Expected: 08/28/2023, Expires: Start: 08-28-2023 End: 11-27-2023 CBC panel - Blood by Automated count CBC Lab Routine Essential hypertension Medication management Expected: 08/28/2023, Expires: 11/27/2023 [facility] Comment on above: Expected: 08/28/2023, Expires: Start: 08-28-2023 End: 11-27-2023 Comprehensive metabolic 2000 panel - Serum or Plasma COMP METABOLIC PANEL Lab Routine Type 2 diabetes mellitus with diabetic neuropathy, with long-term current use of insulin (HCC) Essential hypertension Medication management Expected: 08/28/2023, Expires: 11/27/2023 [facility] Comment on above: Expected: 08/28/2023, Expires: Start: 08-28-2023 End: 11-27-2023 Hemoglobin A1c in Blood HGB A1C Lab Routine Type 2 diabetes mellitus with diabetic neuropathy, with long-term current use of insulin (HCC) Medication management Expected: 08/28/2023, Expires: 11/27/2023 [facility] Work Phone: Comment on above: Expected: 08/28/2023, Expires: Start: 08-28-2023 End: 11-27-2023 Lipid 1996 panel - Serum or Plasma LIPID PANEL BASIC Lab Routine Medication management Expected: 08/28/2023, Expires: 11/27/2023 [facility] Comment on above: Expected: 08/28/2023, Expires: Start: 08-28-2023 End: 11-27-2023 Magnesium [Mass/volume] in Serum or Plasma MAGNESIUM BLD Lab Routine Medication management Expected: 08/28/2023, Expires: 11/27/2023 [facility] Comment on above: Expected: 08/28/2023, Expires: Start: 08-10-2023 Hemoglobin A1c measurement HbA1C [facility] Start: 08-10-2023 Hemoglobin A1c/Hemoglobin.total in Blood HbA1C [facility] Start: 06-07-2023 ANNUAL PCP TEAM CHRONIC DISEASE VISIT ANNUAL PCP TEAM CHRONIC DISEASE VISIT [facility] Start: 06-07-2023 BP CONTROLLED (<130/80) BP CONTROLLED (<130/80) [facility] Start: 06-07-2023 HEPATITIS B (1 of 3 - 3-dose series) HEPATITIS B (1 of 3 - 3-dose series) [facility] Comment on above: Postponed from 1969 (Declined at t his time) Start: 06-07-2023 Hepatitis B Vaccine (1 of 3 - 3-dose series) Hepatitis B Vaccine (1 of 3 - 3-dose series) [facility] Comment on above: Postponed from 1969 (Declined at t his time) Start: 06-07-2023 SHINGRIX VACCINE (1 of 2) SHINGRIX VACCINE (1 of 2) [facility] Comment on above: Postponed from 2019 (Declined at t his time) Start: 03-09-2023 Hemoglobin A1c/Hemoglobin.total in Blood HBA1C [facility] Start: 02-10-2023 Hemoglobin A1c measurement A1C test (Diabetic or Prediabetic) [facility] Start: 02-09-2023 End: 04-11-2023 CBC W Auto Differential panel - Blood [facility] Work Phone: Comment on above: Expected: 02/09/2023, Expires: 3 Start: 02-09-2023 End: 04-11-2023 Comprehensive metabolic 2000 panel - Serum or Plasma [facility] Work Phone: Comment on above: Expected: 02/09/2023, Expires: 3 Start: 02-09-2023 End: 04-11-2023 Hemoglobin A1c in Blood [facility] Work Phone: Comment on above: Expected: 02/09/2023, Expires: 3 Start: 02-09-2023 End: 04-11-2023 Lipid 1996 panel - Serum or Plasma [facility] Work Phone: Comment on above: Expected: 02/09/2023, Expires: 3 Start: 02-09-2023 End: 04-11-2023 Magnesium [Mass/volume] in Serum or Plasma [facility] Work Phone: Comment on above: Expected: 02/09/2023, Expires: 3 Start: 02-09-2023 End: 04-11-2023 Natriuretic peptide.B prohormone N-Terminal [Mass/volume] in Serum or Plasma [facility] Work Phone: Comment on above: Expected: 02/09/2023, Expires: 3 Start: 02-02-[address] [facility] Start: 12-12-2022 Depression Monitoring Depression Monitoring [facility] Start: 12-01-2022 Influenza vaccination INFLUENZA (#1) [facility] Comment on above: Postponed from 02/02/2022 (Declined at t his time) Start: 11-29-2022 ANNUAL PCP TEAM CHRONIC DISEASE VISIT ANNUAL PCP TEAM CHRONIC DISEASE VISIT [facility] Start: 11-29-2022 BP CONTROLLED (<130/80) BP CONTROLLED (<130/80) [facility] Start: 11-29-2022 Hemoglobin A1c measurement A1C test (Diabetic or Prediabetic) [facility] Start: 11-16-2022 ANNUAL PCP TEAM CHRONIC DISEASE VISIT ANNUAL PCP TEAM CHRONIC DISEASE VISIT [facility] Start: 11-06-2022 End: 01-06-2023 ALBUMIN/CREAT RATIO RND UR ALBUMIN/CREAT RATIO RND UR Lab Routine Type 2 diabetes mellitus with diabetic neuropathy, with long-term current use of insulin (HCC) Expected: 11/06/2022, Expires: 01/06/2023 [facility] Work Phone: Comment on above: Expected: 11/06/2022, Expires: Start: 10-05-2022 Lipid panel Lipids [facility] Start: 10-04-2022 ANNUAL PCP TEAM CHRONIC DISEASE VISIT ANNUAL PCP TEAM CHRONIC DISEASE VISIT [facility] Start: 08-11-2022 End: 10-11-2022 25-hydroxyvitamin D3 [Mass/volume] in Serum or Plasma VITAMIN D 25 HYDROXY Lab Routine Vitamin D deficiency Medication management Expected: 08/11/2022, Expires: 10/11/2022 [facility] Work Phone: Comment on above: Expected: 08/11/2022, Expires: Start: 08-11-2022 End: 10-11-2022 ALBUMIN/CREAT RATIO RND UR ALBUMIN/CREAT RATIO RND UR Lab Routine Type 2 diabetes mellitus with diabetic neuropathy, with long-term current use of insulin (HCC) Medication management Albuminuria Expected: 08/11/2022, Expires: 10/11/2022 [facility] Work Phone: Comment on above: Expected: 08/11/2022, Expires: 3 Start: 08-11-2022 End: 10-11-2022 CBC W Auto Differential panel - Blood CBC + DIFF Lab Routine Essential hypertension Medication management Expected: 08/11/2022, Expires: 10/11/2022 [facility] Work Phone: Comment on above: Expected: 08/11/2022, Expires: Start: 08-11-2022 End: 10-11-2022 Comprehensive metabolic 2000 panel - Serum or Plasma COMP METABOLIC PANEL Lab Routine Type 2 diabetes mellitus with diabetic neuropathy, with long-term current use of insulin ([facility]) Essential hypertension Medication management Expected: 08/11/2022, Expires: 10/11/2022 [facility] Work Phone: Comment on above: Expected: 08/11/2022, Expires: 3 Start: 08-11-2022 End: 10-11-2022 Hemoglobin A1c in Blood HGB A1C Lab Routine Type 2 diabetes mellitus with diabetic neuropathy, with long-term current use of insulin ([facility]) Medication management Expected: 08/11/2022, Expires: 10/11/2022 [facility] Work Phone: Comment on above: Expected: 08/11/2022, Expires: 3 Start: 08-11-2022 End: 10-11-2022 Lipid 1996 panel - Serum or Plasma LIPID PANEL BASIC Lab Routine Type 2 diabetes mellitus with diabetic neuropathy, with long-term current use of insulin ([facility]) Medication management Expected: 08/11/2022, Expires: 10/11/2022 [facility] Work Phone: Comment on above: Expected: 08/11/2022, Expires: 3 Start: 08-11-2022 End: 10-11-2022 Magnesium [Mass/volume] in Serum or Plasma MAGNESIUM BLD Lab Routine Medication management Expected: 08/11/2022, Expires: 10/11/2022 [facility] Work Phone: Comment on above: Expected: 08/11/2022, Expires: 3 Start: 07-29-2022 BP CONTROLLED (<130/80) BP CONTROLLED (<130/80) [facility] Start: 06-28-2022 ANNUAL PCP TEAM CHRONIC DISEASE VISIT ANNUAL PCP TEAM CHRONIC DISEASE VISIT [facility] Start: 06-20-2022 Hepatitis B screening URINE ALBUMIN:CREATININE RATIO [facility] Start: 06-07-2022 End: 08-07-2022 25-hydroxyvitamin D3 [Mass/volume] in Serum or Plasma VITAMIN D 25 HYDROXY Lab Routine Vitamin D deficiency Medication management Expected: 06/07/2022, Expires: 08/07/2022 [facility] Work Phone: Comment on above: Expected: 06/07/2022, Expires: Start: 06-07-2022 End: 08-07-2022 ALBUMIN/CREAT RATIO RND UR ALBUMIN/CREAT RATIO RND UR Lab Routine Type 2 diabetes mellitus with diabetic neuropathy, with long-term current use of insulin (HCC) Medication management Expected: 06/07/2022, Expires: 08/07/2022 [facility] Work Phone: Comment on above: Expected: 06/07/2022, Expires: 3 Start: 06-07-2022 End: 08-07-2022 CBC W Auto Differential panel - Blood CBC + DIFF Lab Routine Essential hypertension Medication management Expected: 06/07/2022, Expires: 08/07/2022 [facility] Work Phone: Comment on above: Expected: 06/07/2022, Expires: 3 Start: 06-07-2022 End: 08-07-2022 Comprehensive metabolic 2000 panel - Serum or Plasma COMP METABOLIC PANEL Lab Routine Type 2 diabetes mellitus with diabetic neuropathy, with long-term current use of insulin (HCC) Essential hypertension Vitamin D deficiency Medication management Expected: 06/07/2022, Expires: 08/07/2022 [facility] Work Phone: Comment on above: Expected: 06/07/2022, Expires: 3 Start: 06-07-2022 End: 08-07-2022 Hemoglobin A1c in Blood HGB A1C Lab Routine Type 2 diabetes mellitus with diabetic neuropathy, with long-term current use of insulin (HCC) Medication management Expected: 06/07/2022, Expires: 08/07/2022 [facility] Work Phone: Comment on above: Expected: 06/07/2022, Expires: 3 Start: 06-07-2022 End: 08-07-2022 Lipid 1996 panel - Serum or Plasma LIPID PANEL BASIC Lab Routine Type 2 diabetes mellitus with diabetic neuropathy, with long-term current use of insulin (HCC) Medication management Expected: 06/07/2022, Expires: 08/07/2022 [facility] Work Phone: Comment on above: Expected: 06/07/2022, Expires: 3 Start: 06-07-2022 End: 08-07-2022 Magnesium [Mass/volume] in Serum or Plasma MAGNESIUM BLD Lab Routine Medication management Expected: 06/07/2022, Expires: 08/07/2022 [facility] Work Phone: Comment on above: Expected: 06/07/2022, Expires: 3 Start: 05-31-2022 Hemoglobin A1c/Hemoglobin.total in Blood HBA1C [facility] Start: 03-29-2022 End: 03-29-2022 Patient encounter procedure 03/29/2022 Office Visit Heath Montez MD [address], [address] [place] [address] [facility] Start: 03-01-2022 End: 03-01-2022 Patient encounter procedure 03/01/2022 Office Visit Heath Montez MD [address], [address] [place] [address] [facility] Start: 02-21-2022 End: 02-21-2022 Patient encounter procedure 02/21/2022 Appointment General Surgery Heath Panchal MD [address], [address] [place] [address] [facility] General Surgery Start: 02-14-2022 End: 02-14-2022 Patient encounter procedure 02/14/2022 Appointment Pre-Admission Testing Heath Panchal MD [address], [address] [place] [address] [facility] Pre-Admit Testing Start: 02-02-[address] [facility] Start: 02-01-2022 End: 02-01-2022 Patient encounter procedure 02/01/2022 Office Visit Heath Montez MD [address], [address] [place] [address] [facility] Start: 01-25-2022 End: 01-25-2022 Patient encounter procedure 01/25/2022 Office Visit Weight Management Nadira Roger MD [address] [place] [address] [facility] Start: 01-20-2022 End: 03-22-2022 PAIN PANEL, UR QUANT PAIN PANEL, UR QUANT Lab Routine Encounter for long-term current use of medication Expected: 01/20/2022, Expires: 03/22/2022 [facility] Work Phone: Comment on above: Expected: 01/20/2022, Expires: 2 Start: 01-20-2022 End: 03-22-2022 TOX SCREEN ROUT UR TOX SCREEN ROUT UR Lab Routine Encounter for long-term current use of medication Expected: 01/20/2022, Expires: 03/22/2022 [facility] Work Phone: Comment on above: Expected: 01/20/2022, Expires: 2 Start: 01-13-[address] [facility] Start: 01-13-2022 COLORECTAL CANCER SCREENING COLORECTAL CANCER SCREENING [facility] Start: 01-02-2022 Influenza vaccination Flu vaccine (#1) [facility] Start: 12-22-2021 End: 12-22-2021 Patient encounter procedure 12/22/2021 Appointment Radiology Jose Mohan, CLINICAL SYSTEMS EDUCATOR - TOOL ROOM MACHINIST [address] [place] [id number] [facility] Start: 12-21-2021 End: 12-21-2021 Patient encounter procedure [facility] Start: 10-26-2021 End: 10-26-2021 Patient encounter procedure 10/26/2021 Office Visit Weight Management Nadira Roger MD [address] [place] [address] [facility] Start: 10-05-2021 End: 10-05-2021 Patient encounter procedure 10/05/2021 [place] Start: 09-18-2021 Hemoglobin A1c/Hemoglobin.total in Blood HBA1C [facility] Start: 09-16-2021 End: 11-16-2021 CBC panel - Blood by Automated count CBC Lab Routine Medication management Expected: 09/16/2021 (Approximate), Expires: 11/16/2021 [facility] Work Phone: Comment on above: Expected: 09/16/2021 (Approximate), Expi res: 11/16/2021 Start: 09-16-2021 End: 11-16-2021 Comprehensive metabolic 2000 panel - Serum or Plasma COMP METABOLIC PANEL Lab Routine Medication management Type 2 diabetes mellitus with diabetic neuropathy, with long-term current use of insulin (HCC) Type 2 diabetes mellitus with hyperglycemia, with long-term current use of insulin (HCC) Expected: 09/16/2021 (Approximate), Expires: 11/16/2021 [facility] Work Phone: Comment on above: Expected: 09/16/2021 (Approximate), Expi res: 11/16/2021 Start: 09-16-2021 End: 11-16-2021 Hemoglobin A1c/Hemoglobin.total in Blood HGB A1C Lab Routine Type 2 diabetes mellitus with diabetic neuropathy, with long-term current use of insulin (HCC) Type 2 diabetes mellitus with hyperglycemia, with long-term current use of insulin (HCC) Expected: 09/16/2021 (Approximate), Expires: 11/16/2021 [facility] [facility] Work Phone: Comment on above: Expected: 09/16/2021 (Approximate), Expi res: 11/16/2021 Start: 09-16-2021 End: 11-16-2021 LIPID PANEL BASIC LIPID PANEL BASIC Lab Routine Type 2 diabetes mellitus with diabetic neuropathy, with long-term current use of insulin (HCC) Type 2 diabetes mellitus with hyperglycemia, with long-term current use of insulin (HCC) Expected: 09/16/2021 (Approximate), Expires: 11/16/2021 [facility] Work Phone: Comment on above: Expected: 09/16/2021 (Approximate), Expi res: 11/16/2021 Start: 09-16-2021 End: 06-28-2022 VITAMIN D 25 HYDROXY VITAMIN D 25 HYDROXY Lab Routine Vitamin D deficiency Expected: 09/16/2021 (Approximate), Expires: 06/28/2022 [facility] Work Phone: Comment on above: Expected: 09/16/2021 (Approximate), Expi res: 06/28/2022 Start: 09-05-2021 COVID-19 VACCINE (4 - Booster for Pfizer series) COVID-19 VACCINE (4 - Booster for Pfizer series) [facility] Start: 08-24-2021 End: 08-24-2021 Patient encounter procedure 08/24/2021 Office Visit Weight Management Nadira Roger MD [address] [place], [place] [id number] W[facility] Start: 07-26-2021 End: 07-26-2021 ambulatory 07/26/2021 Virtual Visit Weight Management Vera Watson RD, LD [address] [place], [place] [id number] Wt [facility] Start: 07-23-2021 Hepatitis B surface antibody level LDL CHOLESTEROL [facility] Start: 07-02-2021 COVID-19 VACCINE (4 - Booster for Pfizer series) COVID-19 VACCINE (4 - Booster for Pfizer series) [facility] Start: 07-02-2021 COVID-19 VACCINE (4 - Pfizer series) COVID-19 VACCINE (4 - Pfizer series) [facility] Start: 06-29-2021 End: 06-29-2021 Patient encounter procedure 06/29/2021 Office Visit Weight Management Nadira Roger MD [address] [place], [place] [id number] Wt t [facility] Start: 06-07-2021 Glaucoma screening Dilated Retinal Exam [facility] Start: 06-07-2021 Hepatitis C antibody, confirmatory test DILATED RETINAL EXAM [facility] Start: 02-17-2021 COVID-19 Vaccine (3 - Booster for Pfizer series) COVID-19 Vaccine (3 - Booster for Pfizer series) [facility] Start: 02-02-2021 Influenza vaccination Flu vaccine (#1) [facility] Start: 2019 Screening for malignant neoplasm of breast Breast cancer screen [facility] Start: 2019 Shingles Vaccine (1 of 2) Shingles Vaccine (1 of 2) [facility] Start: 2019 SHINGRIX VACCINE (1 of 2) SHINGRIX VACCINE (1 of 2) [facility] Start: 2014 COLOGUARD (FIT-DNA) COLOGUARD (FIT-DNA) [facility] Start: [address] [facility] Start: 2014 FECAL OCCULT BLOOD FECAL OCCULT BLOOD [facility] Start: 2014 Screening for malignant neoplasm of colon [facility] Start: [address] [facility] Start: 11-29-2012 3 comp foot exam completed DIABETIC FOOT EXAM [facility] Start: 11-29-2012 Diabetic foot examination Diabetic Foot Exam [facility] Start: 09-18-[address] [facility] Start: 09-18-2012 Screening for malignant neoplasm of breast Mammogram Screening [facility] Start: 05-01-2012 PNEUMOCOCCAL (2 - PCV) PNEUMOCOCCAL (2 - PCV) [facility] Start: 05-01-2012 Pneumococcal 0-64 years Vaccine (2 - PCV) Pneumococcal 0-64 years Vaccine (2 - PCV) [facility] Start: 2009 Lipid panel Lipid screen [facility] Start: 03-23-[address] [facility] Start: 2004 Diabetes screen Diabetes screen [facility] Start: 1999 Screening for malignant neoplasm of cervix [facility] Start: 1990 Screening for malignant neoplasm of cervix Pap smear [facility] Start: 1988 DTaP/Tdap/Td vaccine (1 - Tdap) DTaP/Tdap/Td vaccine (1 - Tdap) [facility] Start: 1988 HEPATITIS B (1 of 3 - Risk 3-dose series) HEPATITIS B (1 of 3 - Risk 3-dose series) [facility] Start: 1988 Hepatitis B Vaccine (1 of 3 - 19+ 3-dose series) Hepatitis B Vaccine (1 of 3 - 19+ 3-dose series) [facility] Start: 1988 Hepatitis B vaccine (1 of 3 - Risk 3-dose series) Hepatitis B vaccine (1 of 3 - Risk 3-dose series) [facility] Start: 1987 BP Controlled (<130/80) BP Controlled (<130/80) [facility] Start: 1987 Diabetic retinal exam Diabetic retinal exam [facility] Start: 1987 Hepatitis C screening Hepatitis C screen [facility] Start: 1987 Urine screening for protein Diabetic microalbuminuria test [facility] Start: 1984 HIV screening HIV screen [facility] Start: 1981 Depression Screen Depression Screen [facility] Start: 1979 Diabetic foot examination Diabetic foot exam [facility] Start: 1979 Hemoglobin A1c measurement A1C test (Diabetic or Prediabetic) [facility] Start: 1979 Lipid panel [facility] Start: 1969 HEPATITIS B (1 of 3 - 3-dose series) HEPATITIS B (1 of 3 - 3-dose series) [facility] Start: 1969 Hepatitis B Vaccine (1 of 3 - 3-dose series) Hepatitis B Vaccine (1 of 3 - 3-dose series) [facility] Start: 1969 Hepatitis C screening Hepatitis C screen [facility] End: 01-10-2025 25-hydroxyvitamin D3 [Mass/volume] in Serum or Plasma VITAMIN D 25 HYDROXY Lab Routine Vitamin D deficiency Encounter for long-term current use of medication Every 3 months for 60 Occurrences starting 01/11/2024 until 01/10/2025 [facility] Comment on above: Every 3 months for 60 Occurrences starti ng 01/11/2024 until 01/10/2025 End: 01-10-2025 CBC panel - Blood by Automated count COMPLETE BLOOD COUNT Lab Routine Essential hypertension Encounter for long-term current use of medication Every 3 months for 60 Occurrences starting 01/11/2024 until 01/10/2025 [facility] Comment on above: Every 3 months for 60 Occurrences starti ng 01/11/2024 until 01/10/2025 End: 01-10-2025 Comprehensive metabolic 2000 panel - Serum or Plasma COMPREHENSIVE METABOLIC PANEL Lab Routine Controlled type 2 diabetes mellitus without complication, with long-term current use of insulin ([facility]) Essential hypertension Encounter for long-term current use of medication Every 3 months for 60 Occurrences starting 01/11/2024 until 01/10/2025 [facility] Comment on above: Every 3 months for 60 Occurrences starti ng 01/11/2024 until 01/10/2025 End: 08-16-2023 DBT Breast - bilateral screening [facility] Work Phone: Comment on above: ONCE for 1 Occurrences starting 08/16/19 until 08/16/2023 End: 02-10-2024 ECG COMPLETE ECG COMPLETE ECG Routine SOB (shortness of breath) 1 Occurrences starting 02/09/2023 until 02/10/2024 [facility] Work Phone: Comment on above: 1 Occurrences starting 02/09/2023 until 02/10/2024 ECG COMPLETE ECG COMPLETE ECG 02/09/2023 11:42 AM EDT [facility] End: 02-10-2024 Echocardiography ECHO Cardiology Routine SOB (shortness of breath) 1 Occurrences starting 02/09/2023 until 02/10/2024 [facility] Work Phone: Comment on above: 1 Occurrences starting 02/09/2023 until 02/10/2024 Endometrial bx w/wo endocervix bx w/o dilat spx ENDOMETRIAL BIOPSY Procedures Routine Abnormal uterine bleeding (AUB) Ordered: 10/31/2024 [facility] Work Phone: Comment on above: Ordered: 10/31/2024 End: 01-10-2025 Hemoglobin A1c in Blood HEMOGLOBIN A1C Lab Routine Controlled type 2 diabetes mellitus without complication, with long-term current use of insulin ([facility]) Encounter for long-term current use of medication Every 3 months for 60 Occurrences starting 01/11/2024 until 01/10/2025 [facility] Comment on above: Every 3 months for 60 Occurrences starti ng 01/11/2024 until 01/10/2025 End: 01-10-2025 Magnesium [Mass/volume] in Serum or Plasma MAGNESIUM Lab Routine Encounter for long-term current use of medication Every 3 months for 60 Occurrences starting 01/11/2024 until 01/10/2025 [facility] Comment on above: Every 3 months for 60 Occurrences starti ng 01/11/2024 until 01/10/2025 End: 12-08-2023 NOAH SCREENING NOAH SCREENING Radiology Routine Encounter for screening mammogram for breast cancer 1 Occurrences starting 11/08/2022 until 12/08/2023 [facility] Work Phone: Comment on above: 1 Occurrences starting 11/08/2022 until 12/08/2023 End: 09-26-2024 MG Breast - left Diagnostic for implant NOAH DIAGNOSTIC LEFT Radiology Routine Abnormal mammogram 1 Occurrences starting 08/28/2023 until 09/26/2024 [facility] Comment on above: 1 Occurrences starting 08/28/2023 until 09/26/2024 End: 10-05-2021 Nicotine, Blood [facility] Work Phone: Comment on above: 1 Occurrences starting 10/05/2021 until 10/05/2021 PAP TEST PAP TEST Lab Rou demetrius Abnormal uterine bleeding (AUB) Screening for cervical cancer Screening for human papillomavirus (HPV) 10/31/2024 4:[address] [facility] End: 12-30-2022 Screening mammography bi 2-view breast inc cad NOAH SCREENING Radiology Routine Encounter for screening mammogram for breast cancer 1 Occurrences starting 11/30/2021 until 12/30/2022 [facility] Work Phone: Comment on above: 1 Occurrences starting 11/30/2021 until 12/30/2022 Tissue Pathology bio psy report SURGICAL PATHOLOGY Lab Routine Abnormal uterine bleeding (AUB) 10/31/2024 4:[address] [facility] UA DIP, URINE (POC) UA DIP, URIN E (POC) Lab Routine Dysuria Ordered: 06/13/2023 [facility] Work Phone: Comment on above: Ordered: 06/13/2023 End: 10-05-2021 US ABDOMEN COMPLETE [facility] Work Phone: Comment on above: 1 Occurrences starting 10/05/2021 until 10/05/2021 End: 02-09-2025 US Breast - left limited US BREAST LTD LEFT Radiology Routine Abnormal mammogram 1 Occurrences starting 01/11/2024 until 02/09/2025 [facility] Work Phone: Comment on above: 1 Occurrences starting 01/11/2024 until 02/09/2025 End: 10-05-2021 Vitamin B1, Whole Blood [facility] Work Phone: Comment on above: 1 Occurrences starting 10/05/2021 until 10/05/2021 End: 02-10-2022 XR CHEST (2 VW) [facility] Work Phone: Comment on above: 1 Occurrences starting 02/10/2022 until 02/10/2022 End: 10-05-2021 Zinc [facility] Work Phone: Comment on above: 1 Occurrences starting 10/05/2021 until 10/05/2021 [facility] Immunizations Immunization Date Immunization Notes Care Provider Fa [facility] 04-27-2023 pneumococcal Conjuga te, unspecified formulation Aurora Macdonald MD Work Phone: [facility] Work Phone: 04-27-2023 pneumococcal (PCV20) vaccine, 20 valent (PREVNAR 20) Aurora Macdonald MD Work Phone: [facility] 05-07-2021 COVID-19, Moderna, Booster, PF, 50mcg/0.25ml Nadira Roger MD Work Phone: [facility] Work Phone: 09-17-2020 COVID-19 vaccine, ag e 12+ yr (PFIZER-BIONTECH - PURPLE TOP) Aurora Macdonald MD Work Phone: [facility] Work Phone: 08-15-2020 COVID-19 vaccine, ag e 12+ yr (PFIZER-BIONTECH - PURPLE TOP) Aurora Macdonald MD Work Phone: [facility] Work Phone: 03-13-2018 influenza virus vacc ine, unspecified formulation Carmela Nathan CLINICAL SYSTEMS EDUCATOR.TOOL ROOM MACHINIST Work Phone: [facility] 05-01-2011 pneumococcal polysaccharide vaccine, 23 valent Aurora Macdonald MD Work Phone: [facility] 03-22-2007 tetanus and diphther ia toxoids, adsorbed, preservative free, for adult use (2 Lf of tetanus toxoid and 2 Lf of diphtheria toxoid) Aurora Macdonald MD Work Phone: [facility] Work Phone: Payers Date Payer Category Payer Medicaid [employer] [employer] [id number] 2019-Present [phone] [address] [place] [address] Medicaid [id number] 2017 Medicaid [id number] [id number] 2017 Unknown [id number] [id number] 1969 Unknown [id number] 2.16.840.1.395745.3.579.2 1969 Unknown [id number] 2.16.840.1.618894.3.579.2 1969 Unknown [id number] 2.16.840.1.483974.3.579.2 1969 Unknown [id number] 2.16.840.1.301928.3.579.2 1969 Unknown [id number] 2.16.840.1.317244.3.579.2 1969 Unknown [id number] 2.16.840.1.894573.3.579.2 1969 Unknown [id number] 2.16.840.1.075031.3.579.2 1969 Unknown [id number] 2.16.840.1.596566.3.579.2 1969 Unknown [id number] 2.16.840.1.318543.3.579.2 1969 Unknown [id number] 2.16.840.1.676982.3.579. 1969 Unknown [id number] 2.16.840.1.796045.3.579. 1969 Unknown [id number] 2.16.840.1.581756.3.579. 1969 Unknown [id number] 2.16.840.1.645343.3.579. 1969 Unknown [id number] 2.16.840.1.001165.3.579. 1969 Unknown [id number] 2.16.840.1.458535.3.579. 1969 Unknown [id number] 2.16.840.1.333290.3.579.2 1969 Unknown [id number] 2.16.840.1.567040.3.579. 1969 Unknown [id number] 2.16.840.1.758179.3.579.2 1969 Unknown [id number] 2.16.840.1.487118.3.579.2 1969 Unknown [id number] 2.16.840.1.705943.3.579.2 1969 Unknown [id number] 2.16.840.1.841425.3.579.2 1969 Unknown [id number] 2.16.840.1.810121.3.579.2.668 1969 Unknown [id number] 2.16.840.1.469968.3.579.2.668 1969 Unknown [id number] 2.16.840.1.731933.3.579.2.668 1969 Unknown [id number] 2.16.840.1.688033.3.579.2.668 1969 Unknown [id number] 2.16.840.1.542985.3.579.2.8 Self-pay Unknown Social History Date Type Detail Facility Start: 05-18-2021 End: 06-13-2023 Tobacco smoking status [facility] Never smoked tobacco [facility] Work Phone: Start: 05-18-2021 End: 06-13-2023 Tobacco use and exposure Smokeless tobacco non-user [facility] Work Phone: Start: 05-18-2021 End: 02-14-2022 Alcohol intake Ex-drinker (finding) [facility] [employer] Phone: Start: 1970 Sex Assigned At Not on file [facility] Work Phone: Start: 02-21-2021 End: 11-06-2022 Tobacco smoking status ORIS Ex-smoker [facility] Work Phone: End: 06-04-1989 History of tobacco use Current smoker [facility] End: 06-04-1989 History of tobacco use Cigarette Smoker [facility] Start: 06-28-2021 End: 12-04-2024 Alcohol intake Current non-drinker of alcohol (finding) [facility] Start: 11-14-2019 End: 03-30-2021 History SDOH Alcohol Frequency 1 [facility] Start: 11-14-2019 History SDOH Alcohol Std Drinks 98 [facility] Start: 11-14-2019 End: 03-30-2021 History SDOH Social Connections Phone 2 [facility] Start: 11-14-2019 History SDOH Social Connections Living 5 [facility] Start: 11-14-2019 History SDOH Physica l Activity DPW 0 [facility] Start: 11-14-2019 End: 03-30-2021 History SDOH Financial 3 [facility] Start: 04-05-[address] [facility] Start: 1970 Sex Assigned At Female [facility] Start: 08-15-2021 End: 01-24-2022 Exposure to SARS-CoV-2 (event) Not sure [facility] Start: 11-06-2022 Tobacco Comment social smoker in jazmyne ns [facility] Start: 11-13-2019 End: 10-31-2024 History of Social function [facility] Start: 11-13-2019 End: 10-31-2024 Social connection and isolation panel [facility] Do you belong to any clubs or organizations such as sikhism groups, unions, fraternal or athletic groups, or school groups? No [facility] Are you now , , , , never or living with a partner? [facility] How often to you hav e a drink containing alcohol? Never [facility] How many standard dr inks containing alcohol do you have on a typical day? Patient refused [facility] How hard is it for y ou to pay for the very basics like food, housing, medical care, and heating Somewhat hard [facility] Do you feel stress - tense, restless, nervous, or anxious, or unable to sleep at night because your mind is troubled all the time - these days [OSQ] Very much [facility] (I/We) worried wheth er (my/our) food would run out before (I/we) got money to buy more. Sometimes true [facility] Start: 11-07-2020 Gender identity Identifies as female gender (finding) [facility] Start: 11-07-2020 Sexual orientation Choose not to dis close [facility] (I/We) worried wheth er (my/our) food would run out before (I/we) got money to buy more. DK or Refused [facility] How hard is it for y ou to pay for the very basics like food, housing, medical care, and heating Hard [facility] Medical Equipment Procedure Code Equipment Code Equipment Original Text Equipment Identifier Dates [id number], [id number], [id number], [id number], [id number], [id number], [id number] Start: 10-16-2012 End: 11-04-2024 Comment on above: Test blood sugar(s) 5 times daily. (Test strips brand covered by [employer]) Dx: Type 2 DM - Uncontrolled E11.65 Insulin: Yes Test blood sugars 5 times per day and as needed. Dx: E11.65; Insulin: yes Use 1 Needle For Eac h Dose 3-4 Times Daily With Novolog Pen For Meals and At Bedtime if Needed tests sugar 4 to 6 t imes daily DX:250.02 Insulin dependent (this is corrected RX) Test blood sugar(s) 4 to 5 times times daily. Dx: Type 2 DM - Uncontrolled E11.65 Insulin: Yes Test blood sugar(s) 4 times daily. Dx: Type 2 DM - Uncontrolled E11.65 Insulin: Yes Functional Status Date Assessment Result Facility 12-10-2014 Are you deaf, or do you have serious difficulty hearing No 12/10/2014 9:11 AM Randee Burton LPN No [facility] 12-10-2014 Are you blind, or do you have serious difficulty seeing, even when wearing glasses No 12/10/2014 9:11 AM Randee Burton LPN No [facility] 12-10-2014 Do you have serious difficulty walking or climbing stairs Yes 12/10/2014 9:11 AM Randee Burton LPN Yes [facility] 12-10-2014 Do you have difficul ty dressing or bathing No 12/10/2014 9:11 AM Randee Burton LPN No [facility] 12-10-2014 Because of a physica l, mental, or emotional condition, do you have difficulty doing errands alone such as visiting a physician's office or shopping No 12/10/2014 9:11 AM Randee Burton LPN No [facility] Mental Status Date Assessment Result Facility 12-10-2014 Because of a physica l, mental, or emotional condition, do you have serious difficulty concentrating, remembering, or making decisions No 12/10/2014 9:11 AM Randee Burton LPN No [facility] Clinical Notes 08-11-2014 to 01-02-2025 Juanita Mendosa MD - 01/02/2025 2:00 PM Juanita Avila MD - 01/02/2025 2:00 PM EDTTelephone Encounter - Katie Moran MA - 12/30/2024 9:34 AM EDTPatient Instructions Note Date & Type Note Facility 01-02-2025 History and physical note VIRTUAL VISIT: I have communicated my name and active licensure. The patient's identity and physical location were verified at the time of this visit. Either the patient or their legal merchandiser retail representative has been informed of the risks and benefits of -- and alternatives to -- treatment through a remote evaluation and consents to proceed with the evaluation remotely Visit was conducted via [employer] Patient Location: Patient Home or Place of Residence [id number] Pre-Op History and Physical HPI: The patient is a 54 year old female presenting for discussion regarding AUB and surgical intervention. pre-operative visit. She is scheduled for Hysteroscopy D&C and polypectomy, for AUB, endometrial polyp on EMB on 01/09/25. Procedure discussed along with risks, benefits and complications. Other alternatives discussed for management. Consent form signed? Yes. PAST MEDICAL HISTORY Diagnosis Date Abdominal pain, left upper quadrant Abdominal pain, unspecified site Acquired spondylolisthesis 07/25/2010 Acute gastritis without mention of hemorrhage Arthritis Asthma (HCC) Calcaneal spur 10/15/2009 COPD (chronic obstructive pulmonary disease) (HCC) Cough DEPRESSIVE DISORDER NEC 06/15/2007 Depressive disorder, not elsewhere classified Diabetes mellitus without mention of complication Diabetes mellitus Diabetes mellitus without mention of complication Diabetes mellitus type 2 Displacement of lumbar intervertebral disc without myelopathy 12/30/2009 Esophageal reflux 10/01/2006 Esophagitis, unspecified Fibromyalgia 07/25/2010 Generalized anxiety disorder Anxiety, Generalized Hemorrhage of gastrointestinal tract, unspecified Hypertension Internal hemorrhoids without mention of complication Left carpal tunnel syndrome 09/11/2013 Lumbago 08/05/2008 Migraine 03/02/2009 Mixed stress and urge urinary incontinence Myalgia and myositis, unspecified Obesity, unspecified Obesity ZHAO (obstructive sleep apnea) 05/01/2011 uses C-PAP PMH - PAST MEDICAL HISTORY OF allergic syndrome; gets allergy shots PMH - PAST MEDICAL HISTORY OF bipolar Psoriasis and similar disorders Sleep apnea Spondylolysis, 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 Grissom saw in the past Vitamin D deficiency 11/29/2010 on calcitriol PAST SURGICAL HISTORY Procedure Laterality Date ABDOMINAL SURGERY HX DELIVERY ONLY 2001,2003 COLONOSCOPY FLX DX W/COLLJ SPEC WHEN PFRMD 02/05/2015 Colonoscopy out pt [facility] D+C 01/27/2021 IUD insertion- BENIGN PATHOLOGY EGD TRANSORAL BIOPSY SINGLE/MULTIPLE 05/02/2006 ESOPHAGOGASTRODUODENOSCOPY TRANSORAL DIAGNOSTIC 02/05/2015 EGD out pt [facility] ESOPHAGOGASTRODUODENOSCOPY TRANSORAL DIAGNOSTIC 01/13/2019 EGD HYSTEROSCOPY BX ENDOMETRIUM&/POLYPC W/WO D&C 08/08/2018 AUB, menorrhagia INCISE FINGER TENDON SHEATH Left 08/18/2021 Left trigger thumb release INCISION EXTENSOR TENDON SHEATH WRIST Right 11/17/2020 Right wrist 1st dorsal compartment release, synovectomy, 2nd dorsal release MIRENA IUD 01/27/2021 insertion PAST SURGICAL HISTORY OF 07/2005 carpal tunnel right hand PAST SURGICAL HISTORY OF 1973 upper lip - plastic surgery. PAST SURGICAL HISTORY OF 2010 right plantar fasciectomy RE[facility]ISE MEDIAN N/CARPAL TUNNEL SURG Right 01/18/2023 [facility] SIGMOIDOSCOPY FLX DX W/COLLJ SPEC BR/WA IF PFRMD 05/22/2006 Current Outpatient Medications Medication Sig Dispense Refill atenolol (TENORMIN) 25 mg tablet Take 1 tablet by mouth once daily. As directed 90 tablet 3 insulin aspart U-100 (NOVOLOG FLEXPEN U-100 INSULIN) 100 unit/mL (3 mL) pen WITH FIRST BITE OF FOOD, 30 UNITS W/BREAKFAST, 30 UNITS W/LUNCH, 30 UNITS W/DINNER; MAY ADJUST WITH SLIDING SCALE GIVEN HIGH BLOOD SUGAR. Max dose 105 units per day 90 mL 3 Blood-Glucose Sensor ([employer] G7 SENSOR) franklin Apply new sensor every ten (10) days. 9 each 3 cyclobenzaprine (FLEXERIL) 10 mg tablet Take 0.5-1 tablets by mouth two times a day as needed. 30 tablet 2 ibuprofen (MOTRIN) 800 mg tablet Take 1 tablet by mouth every 8 hours as needed for pain. 30 tablet 1 blood sugar diagnostic (TRUE METRIX GLUCOSE TEST STRIP) test strip Use with blood glucose test four times a day. Insulin Dep Yes DX E11.65 200 strip 5 Blood-Glucose Meter (TRUE METRIX GLUCOSE METER) 1 kit four times daily. DX E11.65 Insulin yes 1 each 0 Blood-Glucose Meter,Continuous (DEXCOM G7 BINDERY MACHINE TENDER) misc Use to check blood sugar at least four (4) times daily. 1 each 0 CPAP Continue APAP @ 13-20 cm of water with humidification. Mask (per patient preference) optional chin strap (if indicated) , filters, tubing, humidifier and lifetime supplies. EPR set at 3. (G47.33) ZHAO (obstructive sleep apnea). Needs new mask at least every 3 months and needs new mask now since current one is leaking. Also needs new headgear now since current one is loose. 1 each 1 fluconazole (DIFLUCAN) 150 mg tablet Take by mouth. Take at onset of yeast infection. Repeat after 5 to 7 days if ongoing symptoms. May treat recurrent episodes as needed. 2 tablet 2 montelukast (SINGULAIR) 10 mg tablet Take 1 tablet by mouth daily at bedtime. 90 tablet 3 flash glucose sensor (FREESTYLE DUSTY 2 SENSOR) kit apply 1 SENSOR to back OF UPPER ARM REMOVE AND REPLACE every 14 days use with DEVICE to MONITOR BLOOD SUGAR 3 Kit 3 nystatin (MYCOSTATIN) cream Apply 1 application to affected area two times a day as needed. 60 g 2 Cane Use as directed for help with balance 1 Each 0 Cholecalciferol, Vitamin D3, 125 mcg (5,000 unit) cap Take 1 capsule by mouth once daily. DULoxetine (CYMBALTA) 30 mg capsule Take 1 capsule by mouth once daily. 90 capsule 3 omeprazole (PRILOSEC) 20 mg capsule Take 1 capsule by mouth daily before breakfast. 1/2 hr before meal. As directed. 90 capsule 3 insulin glargine (LANTUS SOLOSTAR U-100 INSULIN) 100 unit/mL (3 mL) Inject 120 Units subcutaneously daily at bedtime. Please dispense 15 pens (3 boxes at a time). 45 mL 11 Insulin [place], Disposable, (BD INSULIN PEN NEEDLE UF) 29 gauge x 1/2 Use 1 Needle For Each Dose 3-4 Times Daily With Novolog Pen For Meals and At Bedtime if Needed 100 Each 11 fluticasone (FLOVENT HFA) 220 mcg/actuation inhaler Inhale 2 Puffs as instructed two times a day. 1 Each 11 Blood-Glucose Meter (FREESTYLE LITE METER) monitoring kit Check blood sugars as directed for controlled Type 2 DM without complication 1 Each 0 albuterol HFA (VENTOLIN HFA) 90 mcg/actuation inhaler Inhale 2 Puffs as instructed every 4 hours as needed for wheezing/shortness of breath. 1 Each 1 albuterol (PROVENTIL) 2.5 mg /3 mL (0.083 %) nebulizer solution Use 3 mL via nebulizer every 4 hours as needed for wheezing/shortness of breath. Use over 5-15minutes. 75 mL 1 hydroCHLOROthiazide (HYDRODIURIL, ESIDRIX) 25 mg tablet Take 1 tablet by mouth once daily. As needed for swelling from fluid retention 90 tablet 3 flash glucose scanning reader (edelightSTYLE DUSTY 2 READER) Check glucose 4 times a day or more as directed. Dx: ICD10: E11.40, Z79.4. Insulin: Yes. 1 Each 0 omega-3/dha/epa/dpa/fish oil (OMEGA-3 2100 ORAL) Take 1 tablet by mouth twice daily. ascorbic acid (VITAMIN C ORAL) Take 3,000 Units by mouth once daily. COMPOUNDED PRESCRIPTION CPAP supplies--mask per patient preference, tubing, humidifier as needed. G47.33, Z99.89 ZHAO on CPAP 1 Each 0 Incontinence Pad, Liner, Disp pads Change pad 3 to 5 times daily. N39.46 150 Each 5 Lancets (FREESTYLE LANCETS) lancets tests sugar 4 to 6 times daily DX:250.02 Insulin dependent (this is corrected RX) 200 Each 11 No current facility-administered medications for this visit. ALLERGIES: Losartan, Vicodin [Hydrocodone-Acetaminophen], Amlodipine, Codeine Antitussive Cough, Latex, Lisinopril, Metformin, and Relafen [Nabumetone] PERSONAL HISTORY: Social History Tobacco Use Smoking status: Never Smokeless tobacco: Never Tobacco comments: social smoker in teens Vaping Use Vaping status: Never Used Substance Use Topics Alcohol use: No Drug use: No FAMILY HISTORY: FAMILY HISTORY Problem Relation Age of Onset Diabetes Mother Asthma Mother Heart Mother Brain Cancer Mother Cancer Father AT 71 R/T BLADDER Heart Father Asthma Sister other (ulcers) Sister Lung Cancer Sister REVIEW OF SYMPTOMS: negative except as noted above PHYSICAL EXAMINATION: VITALS: Last menstrual period 11/28/2020. VIDEO PE: GENERAL: The patient is well nourished, well hydrated in no acute distress. , The patient is oriented to time, place, and person. NECK:full range of motion IMPRESSION: 54yo with AUB, Endometrial polyp on EMB PLAN: Hysteroscopy, D&C, polypectomy with symphion Pt has been counseled on risks/benefits and alternatives of surgery including but not limited to anesthesia, bleeding, infection, uterine perforation with subsequent injury to pelvic structures including bowel, bladder, ureters and vessels. Pt wishes to proceed with surgery at this time. Pre and post op instructions reviwed Needs pre op labs completed - H/o TYPE 2 DM I have reviewed and updated past medical and surgical history, medications and allergies Juanita Hanna MD [facility] 01-02-2025 History and physical note VIRTUAL VISIT: I have communicated my name and active licensure. The patient's identity and physical location were verified at the time of this visit. Either the patient or their legal merchandiser retail representative has been informed of the risks and benefits of -- and alternatives to -- treatment through a remote evaluation and consents to proceed with the evaluation remotely Visit was conducted via Jackrabbitom Patient Location: Patient Home or Place of Residence [id number] Pre-Op History and Physical HPI: The patient is a 54 year old female presenting for discussion regarding AUB and surgical intervention. pre-operative visit. She is scheduled for Hysteroscopy D&C and polypectomy, for AUB, endometrial polyp on EMB on 01/09/25. Procedure discussed along with risks, benefits and complications. Other alternatives discussed for management. Consent form signed? Yes. PAST MEDICAL HISTORY Diagnosis Date Abdominal pain, left upper quadrant Abdominal pain, unspecified site Acquired spondylolisthesis 07/25/2010 Acute gastritis without mention of hemorrhage Arthritis Asthma (HCC) Calcaneal spur 10/15/2009 COPD (chronic obstructive pulmonary disease) (HCC) Cough DEPRESSIVE DISORDER NEC 06/15/2007 Depressive disorder, not elsewhere classified Diabetes mellitus without mention of complication Diabetes mellitus Diabetes mellitus without mention of complication Diabetes mellitus type 2 Displacement of lumbar intervertebral disc without myelopathy 12/30/2009 Esophageal reflux 10/01/2006 Esophagitis, unspecified Fibromyalgia 07/25/2010 Generalized anxiety disorder Anxiety, Generalized Hemorrhage of gastrointestinal tract, unspecified Hypertension Internal hemorrhoids without mention of complication Left carpal tunnel syndrome 09/11/2013 Lumbago 08/05/2008 Migraine 03/02/2009 Mixed stress and urge urinary incontinence Myalgia and myositis, unspecified Obesity, unspecified Obesity ZHAO (obstructive sleep apnea) 05/01/2011 uses C-PAP PMH - PAST MEDICAL HISTORY OF allergic syndrome; gets allergy shots PMH - PAST MEDICAL HISTORY OF bipolar Psoriasis and similar disorders Sleep apnea Spondylolysis, 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 Grissom saw in the past Vitamin D deficiency 11/29/2010 on calcitriol PAST SURGICAL HISTORY Procedure Laterality Date ABDOMINAL SURGERY HX DELIVERY ONLY 2001,2003 COLONOSCOPY FLX DX W/COLLJ SPEC WHEN PFRMD 02/05/2015 Colonoscopy out pt [facility] D+C 01/27/2021 IUD insertion- BENIGN PATHOLOGY EGD TRANSORAL BIOPSY SINGLE/MULTIPLE 05/02/2006 ESOPHAGOGASTRODUODENOSCOPY TRANSORAL DIAGNOSTIC 02/05/2015 EGD out pt [facility] ESOPHAGOGASTRODUODENOSCOPY TRANSORAL DIAGNOSTIC 01/13/2019 EGD HYSTEROSCOPY BX ENDOMETRIUM&/POLYPC W/WO D&C 08/08/2018 AUB, menorrhagia INCISE FINGER TENDON SHEATH Left 08/18/2021 Left trigger thumb release INCISION EXTENSOR TENDON SHEATH WRIST Right 11/17/2020 Right wrist 1st dorsal compartment release, synovectomy, 2nd dorsal release MIRENA IUD 01/27/2021 insertion PAST SURGICAL HISTORY OF 07/2005 carpal tunnel right hand PAST SURGICAL HISTORY OF 1973 upper lip - plastic surgery. PAST SURGICAL HISTORY OF 2010 right plantar fasciectomy REVISE MEDIAN N/CARPAL TUNNEL SURG Right 01/18/2023 [facility] COSMET[facility] SURGERY SIGMOIDOSCOPY FLX DX W/COLLJ SPEC BR/WA IF PFRMD 05/22/2006 Current Outpatient Medications Medication Sig Dispense Refill atenolol (TENORMIN) 25 mg tablet Take 1 tablet by mouth once daily. As directed 90 tablet 3 insulin aspart U-100 (NOVOLOG FLEXPEN U-100 INSULIN) 100 unit/mL (3 mL) pen WITH FIRST BITE OF FOOD, 30 UNITS W/BREAKFAST, 30 UNITS W/LUNCH, 30 UNITS W/DINNER; MAY ADJUST WITH SLIDING SCALE GIVEN HIGH BLOOD SUGAR. Max dose 105 units per day 90 mL 3 Blood-Glucose Sensor (DEXCOM G7 SENSOR) franklin Apply new sensor every ten (10) days. 9 each 3 cyclobenzaprine (FLEXERIL) 10 mg tablet Take 0.5-1 tablets by mouth two times a day as needed. 30 tablet 2 ibuprofen (MOTRIN) 800 mg tablet Take 1 tablet by mouth every 8 hours as needed for pain. 30 tablet 1 blood sugar diagnostic (TRUE METRIX GLUCOSE TEST STRIP) test strip Use with blood glucose test four times a day. Insulin Dep Yes DX E11.65 200 strip 5 Blood-Glucose Meter (TRUE METRIX GLUCOSE METER) 1 kit four times daily. DX E11.65 Insulin yes 1 each 0 Blood-Glucose Meter,Continuous (DEXCOM G7 BINDERY MACHINE TENDER) misc Use to check blood sugar at least four (4) times daily. 1 each 0 CPAP Continue APAP @ 13-20 cm of water with humidification. Mask (per patient preference) optional chin strap (if indicated) , filters, tubing, humidifier and lifetime supplies. EPR set at 3. (G47.33) ZHAO (obstructive sleep apnea). Needs new mask at least every 3 months and needs new mask now since current one is leaking. Also needs new headgear now since current one is loose. 1 each 1 fluconazole (DIFLUCAN) 150 mg tablet Take by mouth. Take at onset of yeast infection. Repeat after 5 to 7 days if ongoing symptoms. May treat recurrent episodes as needed. 2 tablet 2 montelukast (SINGULAIR) 10 mg tablet Take 1 tablet by mouth daily at bedtime. 90 tablet 3 flash glucose sensor (FREESTYLE DUSTY 2 SENSOR) kit apply 1 SENSOR to back OF UPPER ARM REMOVE AND REPLACE every 14 days use with DEVICE to MONITOR BLOOD SUGAR 3 Kit 3 nystatin (MYCOSTATIN) cream Apply 1 application to affected area two times a day as needed. 60 g 2 Cane Use as directed for help with balance 1 Each 0 Cholecalciferol, Vitamin D3, 125 mcg (5,000 unit) cap Take 1 capsule by mouth once daily. DULoxetine (CYMBALTA) 30 mg capsule Take 1 capsule by mouth once daily. 90 capsule 3 omeprazole (PRILOSEC) 20 mg capsule Take 1 capsule by mouth daily before breakfast. 1/2 hr before meal. As directed. 90 capsule 3 insulin glargine (LANTUS SOLOSTAR U-100 INSULIN) 100 unit/mL (3 mL) Inject 120 Units subcutaneously daily at bedtime. Please dispense 15 pens (3 boxes at a time). 45 mL 11 Insulin [place], Disposable, (BD INSULIN PEN NEEDLE UF) 29 gauge x 1/2 Use 1 Needle For Each Dose 3-4 Times Daily With Novolog Pen For Meals and At Bedtime if Needed 100 Each 11 fluticasone (FLOVENT HFA) 220 mcg/actuation inhaler Inhale 2 Puffs as instructed two times a day. 1 Each 11 Blood-Glucose Meter (FREESTYLE LITE METER) monitoring kit Check blood sugars as directed for controlled Type 2 DM without complication 1 Each 0 albuterol HFA (VENTOLIN HFA) 90 mcg/actuation inhaler Inhale 2 Puffs as instructed every 4 hours as needed for wheezing/shortness of breath. 1 Each 1 albuterol (PROVENTIL) 2.5 mg /3 mL (0.083 %) nebulizer solution Use 3 mL via nebulizer every 4 hours as needed for wheezing/shortness of breath. Use over 5-15minutes. 75 mL 1 hydroCHLOROthiazide (HYDRODIURIL, ESIDRIX) 25 mg tablet Take 1 tablet by mouth once daily. As needed for swelling from fluid retention 90 tablet 3 flash glucose scanning reader (FREESTYLE DUSTY 2 READER) Check glucose 4 times a day or more as directed. Dx: ICD10: E11.40, Z79.4. Insulin: Yes. 1 Each 0 omega-3/dha/epa/dpa/fish oil (OMEGA-3 2100 ORAL) Take 1 tablet by mouth twice daily. ascorbic acid (VITAMIN C ORAL) Take 3,000 Units by mouth once daily. COMPOUNDED PRESCRIPTION CPAP supplies--mask per patient preference, tubing, humidifier as needed. G47.33, Z99.89 ZHAO on CPAP 1 Each 0 Incontinence Pad, Liner, Disp pads Change pad 3 to 5 times daily. N39.46 150 Each 5 Lancets (FREESTYLE LANCETS) lancets tests sugar 4 to 6 times daily DX:250.02 Insulin dependent (this is corrected RX) 200 Each 11 No current facility-administered medications for this visit. ALLERGIES: Losartan, Vicodin [Hydrocodone-Acetaminophen], Amlodipine, Codeine Antitussive Cough, Latex, Lisinopril, Metformin, and Relafen [Nabumetone] PERSONAL HISTORY: Social History Tobacco Use Smoking status: Never Smokeless tobacco: Never Tobacco comments: social smoker in teens Vaping Use Vaping status: Never Used Substance Use Topics Alcohol use: No Drug use: No FAMILY HISTORY: FAMILY HISTORY Problem Relation Age of Onset Diabetes Mother Asthma Mother Heart Mother Brain Cancer Mother Cancer Father AT 71 R/T BLADDER Heart Father Asthma Sister other (ulcers) Sister Lung Cancer Sister REVIEW OF SYMPTOMS: negative except as noted above PHYSICAL EXAMINATION: VITALS: Last menstrual period 11/28/2020. VIDEO PE: GENERAL: The patient is well nourished, well hydrated in no acute distress. , The patient is oriented to time, place, and person. NECK:full range of motion IMPRESSION: 54yo with AUB, Endometrial polyp on EMB PLAN: Hysteroscopy, D&C, polypectomy with symphion Pt has been counseled on risks/benefits and alternatives of surgery including but not limited to anesthesia, bleeding, infection, uterine perforation with subsequent injury to pelvic structures including bowel, bladder, ureters and vessels. Pt wishes to proceed with surgery at this time. Pre and post op instructions reviwed Needs pre op labs completed - H/o TYPE 2 DM I have reviewed and updated past medical and surgical history, medications and allergies Juanita Hanna MD documented in this encounter [facility] 12-30-2024 Telephone encounter Note Patient has been identified by name and date of : yes Patient phones for refill(s): Requested Prescriptions Pending Prescriptions Disp Refills atenolol (TENORMIN) 25 mg tablet 90 tablet 3 Sig: Take 1 tablet by mouth once daily. As directed Date of last office visit in primary care: 09/12/2024 Date of next office visit in primary care: 01/14/2025 Please advise. Thank you. Katie Moran MA. [facility] 12-30-2024 Miscellaneous Notes Patient has been identified by name and date of : yes Patient phones for refill(s): Requested Prescriptions Pending Prescriptions Disp Refills atenolol (TENORMIN) 25 mg tablet 90 tablet 3 Sig: Take 1 tablet by mouth once daily. As directed Date of last office visit in primary care: 09/12/2024 Date of next office visit in primary care: 01/14/2025 Please advise. Thank you. Katie Moran MA. documented in this encounter [facility] 12-24-2024 Telephone encounter Note Patient has been notified. Randee Bansal LPN [facility] 12-24-2024 Miscellaneous Notes Patient has been notified. Randee Bansal LPN Filed order for BMP; Did not cancel urine studies in case needs to do at some point. Also, can check UAWM since that can also see how kidneys are functioning (make sure not leaking protein, RBC or WBC) Patient is requesting testing for kidney functions. Patient stated that she will be in tomorrow. Randee Bansal LPN Filed urine studies Printed jury letter (standard [facility] letter) Patient calls to check on status of request below. Also asking for a letter to excuse her from [facility]. Reports in the past has received a letter stating she is not medically able to serve d/t Asthma and COPD. She reports she recently had foot surgery and is still not able to drive as well. Reports daughter transports her and asking if orders for urine specimen and letter could be available tomorrow. Notified that I was not certain how quickly provider would get to request. Patient asked to red flag the message. Please review and advise, Pari Oliver RN Patient reports she submitted a urine sample with her other lab orders on 09/10/24 but does not see that it was processed. Pt asking if provider can place an urinalysis order so she can complete this soon, to see her kidney function. Please call patient with update. Anna Smith RN documented in this encounter [facility] 12-23-2024 Telephone encounter Note Filed order for BMP; Did not cancel urine studies in case needs to do at some point. Also, can check UAWM since that can also see how kidneys are functioning (make sure not leaking protein, RBC or WBC) [facility] 12-23-2024 Telephone encounter Note Patient is requesting testing for kidney functions. Patient stated that she will be in tomorrow. Randee Bansal LPN [facility] 12-23-2024 Telephone encounter Note Filed urine studies Printed jury letter (standard [facility] letter) [facility] 12-23-2024 Telephone encounter Note Patient calls to check on status of request below. Also asking for a letter to excuse her from [facility]. Reports in the past has received a letter stating she is not medically able to serve d/t Asthma and COPD. She reports she recently had foot surgery and is still not able to drive as well. Reports daughter transports her and asking if orders for urine specimen and letter could be available tomorrow. Notified that I was not certain how quickly provider would get to request. Patient asked to red flag the message. Please review and advise, Pari Oliver RN [facility] 12-22-2024 Telephone encounter Note Patient reports she submitted a urine sample with her other lab orders on 09/10/24 but does not see that it was processed. Pt asking if provider can place an urinalysis order so she can complete this soon, to see her kidney function. Please call patient with update. Anna Smith RN [facility] 12-04-2024 Note HNO ID: [id number] Author: MALATHI CARDOSO MD Service: ? Author Type: Physician Type: Progress Notes Filed: 12/04/2024 14:13 Note Text: VIRTUAL VISIT PROGRESS NOTE This is a virtual visit using Jackrabbitom Video Visit. It required patient-provider interaction for the medical decision making as documented below. I have communicated my name and active licensure. The patient's identity and physical location were verified at the time of this visit. Either the patient or their legal merchandiser retail representative has been informed of the risks and benefits of -- and alternatives to -- treatment through a remote evaluation and consents to proceed with the evaluation remotely. Malathi Naseem Zambrano is a 54 year old female with discussion on path results. Pap with glanular cells, EMB negative but suggestive of polyps. US does not show any obvious polyps. 9.5 mm endometrium. Not menopausal per [facility]. Recent IUD removal. No bleeding since after EMB. Discussed DANTN for more complete pathology given pap and EMB results. Continued bleeding may occur if there is a polyp present. Agreeable to proceed with DANDC hysteroscopy. Has had this done previously. Mirena IUD was placed at that time. Does want IUD again HISTORY REVIEWED (electronic chart updated): PAST MEDICAL HISTORY Diagnosis Date Abdominal pain, left upper quadrant Abdominal pain, unspecified site Acquired spondylolisthesis 07/25/2010 Acute gastritis without mention of hemorrhage Arthritis Asthma (HCC) Calcaneal spur 10/15/2009 COPD (chronic obstructive pulmonary disease) ([facility]) Cough DEPRESSIVE DISORDER NEC 06/15/2007 Depressive disorder, not elsewhere classified Diabetes mellitus without mention of complication Diabetes mellitus Diabetes mellitus without mention of complication Diabetes mellitus type 2 Displacement of lumbar intervertebral disc without myelopathy 12/30/2009 Esophageal reflux 10/01/2006 Esophagitis, unspecified Fibromyalgia 07/25/2010 Generalized anxiety disorder Anxiety, Generalized Hemorrhage of gastrointestinal tract, unspecified Hypertension Internal hemorrhoids without mention of complication Left carpal tunnel syndrome 09/11/2013 Lumbago 08/05/2008 Migraine 03/02/2009 Mixed stress and urge urinary incontinence Myalgia and myositis, unspecified Obesity, unspecified Obesity ZHAO (obstructive sleep apnea) 05/01/2011 uses C-PAP PMH - PAST MEDICAL HISTORY OF allergic syndrome; gets allergy shots PMH - PAST MEDICAL HISTORY OF bipolar Psoriasis and similar disorders Sleep apnea Spondylolysis, 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 Grissom saw in the past Vitamin D deficiency 11/29/2010 on calcitriol PAST SURGICAL HISTORY Procedure Laterality Date ABDOMINAL SURGERY HX DELIVERY ONLY 2001,2003 COLONOSCOPY FLX DX W/COLLJ SPEC WHEN PFRMD 02/05/2015 Colonoscopy out pt [facility] D+C 01/27/2021 IUD insertion- BENIGN PATHOLOGY EGD TRANSORAL BIOPSY SINGLE/MULTIPLE 05/02/2006 ESOPHAGOGASTRODUODENOSCOPY TRANSORAL DIAGNOSTIC 02/05/2015 EGD out pt [facility] ESOPHAGOGASTRODUODENOSCOPY TRANSORAL DIAGNOSTIC 01/13/2019 EGD HYSTEROSCOPY BX ENDOMETRIUMAND/POLYPC W/WO DANDC 08/08/2018 AUB, menorrhagia INCISE FINGER TENDON SHEATH Left 08/18/2021 Left trigger thumb release INCISION EXTENSOR TENDON SHEATH WRIST Right 11/17/2020 Right wrist 1st dorsal compartment release, synovectomy, 2nd dorsal release MIRENA IUD 01/27/2021 insertion PAST SURGICAL HISTORY OF 07/2005 carpal tunnel right hand PAST SURGICAL HISTORY OF 1973 upper lip - plastic surgery. PAST SURGICAL HISTORY OF 2010 right plantar fasciectomy REVISE MEDIAN N/CARPAL TUNNEL SURG Right 01/18/2023 [facility] COSMETIC SURGERY SIGMOIDOSCOPY FLX DX W/COLLJ SPEC BR/WA IF PFRMD 05/22/2006 FAMILY HISTORY Problem Relation Age of Onset Diabetes Mother Asthma Mother Heart Mother Brain Cancer Mother Cancer Father AT 71 R/T BLADDER Heart Father Asthma Sister other (ulcers) Sister Lung Cancer Sister Social History Tobacco Use Smoking status: Never Smokeless tobacco: Never Tobacco comments: social smoker in teens Vaping Use Vaping status: Never Used Substance Use Topics Alcohol use: No Drug use: No Current Outpatient Medications Medication Sig insulin aspart U-100 (NOVOLOG FLEXPEN U-100 INSULIN) 100 unit/mL (3 mL) pen WITH FIRST BITE OF FOOD, 30 UNITS W/BREAKFAST, 30 UNITS W/LUNCH, 30 UNITS W/DINNER; MAY ADJUST WITH SLIDING SCALE GIVEN HIGH BLOOD SUGAR. Max dose 105 units per day Blood-Glucose Sensor (DEXCOM G7 SENSOR) franklin Apply new sensor every ten (10) days. cyclobenzaprine (FLEXERIL) 10 mg tablet Take 0.5-1 tablets by mouth two times a day as needed. ibuprofen (MOTRIN) 800 mg tablet Take 1 tablet by mouth every 8 hours as needed for pain. blood sugar diagnostic (TRUE METRIX GLUCOSE TE (more content not included)... [facility] 12-04-2024 History of Present illness Narrative VIRTUAL VISIT PROGRESS NOTE This is a virtual visit using [email or web address] Zoom Video Visit. It required patient-provider interaction for the medical decision making as documented below. I have communicated my name and active licensure. The patient's identity and physical location were verified at the time of this visit. Either the patient or their legal merchandiser retail representative has been informed of the risks and benefits of -- and alternatives to -- treatment through a remote evaluation and consents to proceed with the evaluation remotely. Malathi Gusman Franki Briscoe is a 54 year old female with discussion on path results. Pap with glanular cells, EMB negative but suggestive of polyps. US does not show any obvious polyps. 9.5 mm endometrium. Not menopausal per FSH. Recent IUD removal. No bleeding since after EMB. Discussed D&C for more complete pathology given pap and EMB results. Continued bleeding may occur if there is a polyp present. Agreeable to proceed with D&C hysteroscopy. Has had this done previously. Mirena IUD was placed at that time. Does want IUD again HISTORY REVIEWED (electronic chart updated): PAST MEDICAL HISTORY Diagnosis Date Abdominal pain, left upper quadrant Abdominal pain, unspecified site Acquired spondylolisthesis 07/25/2010 Acute gastritis without mention of hemorrhage Arthritis Asthma (HCC) Calcaneal spur 10/15/2009 COPD (chronic obstructive pulmonary disease) ([facility]) Cough DEPRESSIVE DISORDER NEC 06/15/2007 Depressive disorder, not elsewhere classified Diabetes mellitus without mention of complication Diabetes mellitus Diabetes mellitus without mention of complication Diabetes mellitus type 2 Displacement of lumbar intervertebral disc without myelopathy 12/30/2009 Esophageal reflux 10/01/2006 Esophagitis, unspecified Fibromyalgia 07/25/2010 Generalized anxiety disorder Anxiety, Generalized Hemorrhage of gastrointestinal tract, unspecified Hypertension Internal hemorrhoids without mention of complication Left carpal tunnel syndrome 09/11/2013 Lumbago 08/05/2008 Migraine 03/02/2009 Mixed stress and urge urinary incontinence Myalgia and myositis, unspecified Obesity, unspecified Obesity ZHAO (obstructive sleep apnea) 05/01/2011 uses C-PAP PMH - PAST MEDICAL HISTORY OF allergic syndrome; gets allergy shots PMH - PAST MEDICAL HISTORY OF bipolar Psoriasis and similar disorders Sleep apnea Spondylolysis, 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 Grissom saw in the past Vitamin D deficiency 11/29/2010 on calcitriol PAST SURGICAL HISTORY Procedure Laterality Date ABDOMINAL SURGERY HX DELIVERY ONLY 2001,2003 COLONOSCOPY FLX DX W/COLLJ SPEC WHEN PFRMD 02/05/2015 Colonoscopy out pt [facility] D+C 01/27/2021 IUD insertion- BENIGN PATHOLOGY EGD TRANSORAL BIOPSY SINGLE/MULTIPLE 05/02/2006 ESOPHAGOGASTRODUODENOSCOPY TRANSORAL DIAGNOSTIC 02/05/2015 EGD out pt [facility] ESOPHAGOGASTRODUODENOSCOPY TRANSORAL DIAGNOSTIC 01/13/2019 EGD HYSTEROSCOPY BX ENDOMETRIUM&/POLYPC W/WO D&C 08/08/2018 AUB, menorrhagia INCISE FINGER TENDON SHEATH Left 08/18/2021 Left trigger thumb release INCISION EXTENSOR TENDON SHEATH WRIST Right 11/17/2020 Right wrist 1st dorsal compartment release, synovectomy, 2nd dorsal release MIRENA IUD 01/27/2021 insertion PAST SURGICAL HISTORY OF 07/2005 carpal tunnel right hand PAST SURGICAL HISTORY OF 1973 upper lip - plastic surgery. PAST SURGICAL HISTORY OF 2010 right plantar fasciectomy REVISE MEDIAN N/CARPAL TUNNEL SURG Right 01/18/2023 [facility] COSMET[facility] SURGERY SIGMOIDOSCOPY FLX DX W/COLLJ SPEC BR/WA IF PFRMD 05/22/2006 FAMILY HISTORY Problem Relation Age of Onset Diabetes Mother Asthma Mother Heart Mother Brain Cancer Mother Cancer Father AT 71 R/T BLADDER Heart Father Asthma Sister other (ulcers) Sister Lung Cancer Sister Social History Tobacco Use Smoking status: Never Smokeless tobacco: Never Tobacco comments: social smoker in teens Vaping Use Vaping status: Never Used Substance Use Topics Alcohol use: No Drug use: No Current Outpatient Medications Medication Sig insulin aspart U-100 (NOVOLOG FLEXPEN U-100 INSULIN) 100 unit/mL (3 mL) pen WITH FIRST BITE OF FOOD, 30 UNITS W/BREAKFAST, 30 UNITS W/LUNCH, 30 UNITS W/DINNER; MAY ADJUST WITH SLIDING SCALE GIVEN HIGH BLOOD SUGAR. Max dose 105 units per day Blood-Glucose Sensor (DEXCOM G7 SENSOR) franklin Apply new sensor every ten (10) days. cyclobenzaprine (FLEXERIL) 10 mg tablet Take 0.5-1 tablets by mouth two times a day as needed. ibuprofen (MOTRIN) 800 mg tablet Take 1 tablet by mouth every 8 hours as needed for pain. blood sugar diagnostic (TRUE METRIX GLUCOSE TEST STRIP) test strip Use with blood glucose test four times a day. Insulin Dep Yes DX E11.65 Blood-Glucose Meter (TRUE METRIX GLUCOSE METER) 1 kit four times daily. DX E11.65 Insulin yes Blood-Glucose Meter,Continuous (DEXCOM G7 BINDERY MACHINE TENDER) misc Use to check blood sugar at least four (4) times daily. CPAP Continue APAP @ 13-20 cm of water with humidification. Mask (per patient preference) optional chin strap (if indicated) , filters, tubing, humidifier and lifetime supplies. EPR set at 3. (G47.33) ZHAO (obstructive sleep apnea). Needs new mask at least every 3 months and needs new mask now since current one is leaking. Also needs new headgear now since current one is loose. fluconazole (DIFLUCAN) 150 mg tablet Take by mouth. Take at onset of yeast infection. Repeat after 5 to 7 days if ongoing symptoms. May treat recurrent episodes as needed. montelukast (SINGULAIR) 10 mg tablet Take 1 tablet by mouth daily at bedtime. flash glucose sensor (FREESTYLE DUSTY 2 SENSOR) kit apply 1 SENSOR to back OF UPPER ARM REMOVE AND REPLACE every 14 days use with DEVICE to MONITOR BLOOD SUGAR nystatin (MYCOSTATIN) cream Apply 1 application to affected area two times a day as needed. atenolol (TENORMIN) 25 mg tablet Take 1 tablet by mouth once daily. As directed Cane Use as directed for help with balance Cholecalciferol, Vitamin D3, 125 mcg (5,000 unit) cap Take 1 capsule by mouth once daily. DULoxetine (CYMBALTA) 30 mg capsule Take 1 capsule by mouth once daily. omeprazole (PRILOSEC) 20 mg capsule Take 1 capsule by mouth daily before breakfast. 1/2 hr before meal. As directed. insulin glargine (LANTUS SOLOSTAR U-100 INSULIN) 100 unit/mL (3 mL) Inject 120 Units subcutaneously daily at bedtime. Please dispense 15 pens (3 boxes at a time). Insulin [place], Disposable, (BD INSULIN PEN NEEDLE UF) 29 gauge x 1/2 Use 1 Needle For Each Dose 3-4 Times Daily With Novolog Pen For Meals and At Bedtime if Needed fluticasone (FLOVENT HFA) 220 mcg/actuation inhaler Inhale 2 Puffs as instructed two times a day. Blood-Glucose Meter (FREESTYLE LITE METER) monitoring kit Check blood sugars as directed for controlled Type 2 DM without complication albuterol HFA (VENTOLIN HFA) 90 mcg/actuation inhaler Inhale 2 Puffs as instructed every 4 hours as needed for wheezing/shortness of breath. albuterol (PROVENTIL) 2.5 mg /3 mL (0.083 %) nebulizer solution Use 3 mL via nebulizer every 4 hours as needed for wheezing/shortness of breath. Use over 5-15minutes. hydroCHLOROthiazide (HYDRODIURIL, ESIDRIX) 25 mg tablet Take 1 tablet by mouth once daily. As needed for swelling from fluid retention flash glucose scanning reader (FREESTYLE DUSTY 2 READER) Check glucose 4 times a day or more as directed. Dx: ICD10: E11.40, Z79.4. Insulin: Yes. omega-3/dha/epa/dpa/fish oil (OMEGA-3 2100 ORAL) Take 1 tablet by mouth twice daily. ascorbic acid (VITAMIN C ORAL) Take 3,000 Units by mouth once daily. COMPOUNDED PRESCRIPTION CPAP supplies--mask per patient preference, tubing, humidifier as needed. G47.33, Z99.89 ZHAO on CPAP Incontinence Pad, Liner, Disp pads Change pad 3 to 5 times daily. N39.46 Lancets (FREESTYLE LANCETS) lancets tests sugar 4 to 6 times daily DX:250.02 Insulin dependent (this is corrected RX) No current facility-administered medications for this visit. ALLERGIES Allergen Reactions Losartan Intolerance dizziness; tried in the past; even lowest dose causes dizziness Vicodin [Hydrocodon* GI Upset Amlodipine Intolerance Headache and stomach issues Codeine Antitussive* GI Upset Latex Rash reddness itching Lisinopril Cough Metformin GI Upset GI upset Relafen [Nabumetone] GI Upset REVIEW OF SYSTEMS: GENERAL: feeling well without fatigue, no recent change in weight All other ROS: negative PHYSICAL EXAMINATION: VIDEO EXAM: (if completed, performed via video enabled technology) No exam performed ASSESSMENT: (N93.9, N84.0) Abnormal uterine bleeding due to endometrial polyp (primary encounter diagnosis) PLAN: D&C hysteroscopy There are no Patient Instructions on file for this visit. I spent a total of 20 minutes on the date of the service which included preparing to see the patient, [id number] patient care, and completing clinical documentation Malathi Cardoso MD documented in this encounter [facility] 11-27-2024 Telephone encounter Note Pt called in and reports she talked with Martha and her rn manager from [facility] and they states they haven't received anything from Dr Macdonald since June. I looked at the order the provider put in and it says it was printed. When the orders print they typically print with the AVS and the Pt's take them with them. The Pt's states she never received the orders and, Dr Macdonald knows I hate the people at that store and that I would never go there.. I let the Pt know I would fax the order over as it is good until 09/12/2005. Faxed order sheet, demographics sheet, and OV note from 09/12/24 faxed to # [phone]. Ling Brower RN [facility] 11-27-2024 Miscellaneous Notes Pt called in and reports she talked with Martha and her rn manager from [facility] and they states they haven't received anything from Dr Macdonald since June. I looked at the order the provider put in and it says it was printed. When the orders print they typically print with the AVS and the Pt's take them with them. The Pt's states she never received the orders and, Dr Macdonald knows I hate the people at that store and that I would never go there.. I let the Pt know I would fax the order over as it is good until 09/12/2005. Faxed order sheet, demographics sheet, and OV note from 09/12/24 faxed to # [phone]. Ling Brower RN Karly with [facility] calling in to say that they need a new prior authorization for pt's CPAP supplies as pt is requesting a new face mask, head gear & tubing for her CPAP machine. Per Karly, the previous Prior Auth in June of this year. Per scanned documents on 07/28/24, there is a document from [employer] scanned in dated 07/01/24 that appears to be a prior auth form with dx of ZHAO with length of time >99 years. Asked Karly to have pt contact us as Karly states pt told her that the prior auth was already taken care of. No notes found in epic. Nurse then called [facility] and spoke with Martha. Martha states that there is nothing needed from the provider's office at this time. Explained to Martha that pt's insurance complany was saying she is requesting a new face mask, head gear & tubing. Martha will reach out to pt as she states there shouldn't be any issues with providing that to the patient. documented in this encounter [facility] 11-27-2024 Telephone encounter Note Karly with [facility] calling in to say that they need a new prior authorization for pt's CPAP supplies as pt is requesting a new face mask, head gear & tubing for her CPAP machine. Per Karly, the previous Prior Auth in June of this year. Per scanned documents on 07/28/24, there is a document from [employer] scanned in dated 07/01/24 that appears to be a prior auth form with dx of ZHAO with length of time >99 years. Asked Karly to have pt contact us as Karly states pt told her that the prior auth was already taken care of. No notes found in epic. Nurse then called [facility] and spoke with Martha. Martha states that there is nothing needed from the provider's office at this time. Explained to Martha that pt's insurance complany was saying she is requesting a new face mask, head gear & tubing. Martha will reach out to pt as she states there shouldn't be any issues with providing that to the patient. [facility] 11-25-2024 Telephone encounter Note Prescription Refill Information The patient has been identified by name and date of : Yes Caregiver verified no other encounters exist for this prescription request: Yes Caregiver confirmed with patient/requestor that no other refills are due, in the near future, with this provider at this time: Yes The last office visit in the department: 09/12/24 Does the patient have a future office visit with this provider/department: Yes 01/14/25 Requested Prescriptions Pending Prescriptions Disp Refills insulin aspart U-100 (NOVOLOG FLEXPEN U-100 INSULIN) 100 unit/mL (3 mL) 90 mL 3 Sig: WITH FIRST BITE OF FOOD, 30 UNITS W/BREAKFAST, 30 UNITS W/LUNCH, 30 UNITS W/DINNER; MAY ADJUST WITH SLIDING SCALE GIVEN HIGH BLOOD SUGAR. Max dose 105 units per day Divina Oh LPN November 25, 2024 1:[address] [facility] 11-25-2024 Miscellaneous Notes Prescription Refill Information The patient has been identified by name and date of : Yes Caregiver verified no other encounters exist for this prescription request: Yes Caregiver confirmed with patient/requestor that no other refills are due, in the near future, with this provider at this time: Yes The last office visit in the department: 09/12/24 Does the patient have a future office visit with this provider/department: Yes 01/14/25 Requested Prescriptions Pending Prescriptions Disp Refills insulin aspart U-100 (NOVOLOG FLEXPEN U-100 INSULIN) 100 unit/mL (3 mL) 90 mL 3 Sig: WITH FIRST BITE OF FOOD, 30 UNITS W/BREAKFAST, 30 UNITS W/LUNCH, 30 UNITS W/DINNER; MAY ADJUST WITH SLIDING SCALE GIVEN HIGH BLOOD SUGAR. Max dose 105 units per day Divina Oh LPN November 25, 2024 1:20 PM documented in this encounter [facility] 11-24-2024 Telephone encounter Note Patient returned our call. Notified that RR recommends scheduling with her to discuss options. Patient preferred DM since she did her last surgery. No openings until Jan 08 got VV. Patient declined appt with RR due to personal reasons. Offered to schedule with SW. Patient ultimately chose to talk with JG first. Aware JG does not perform surgery. She would like her opinion first. Malathi Colin RN [facility] 11-24-2024 Miscellaneous Notes Patient returned our call. Notified that RR recommends scheduling with her to discuss options. Patient preferred DM since she did her last surgery. No openings until Jan 08 got VV. Patient declined appt with RR due to personal reasons. Offered to schedule with SW. Patient ultimately chose to talk with JG first. Aware JG does not perform surgery. She would like her opinion first. Malathi Colin RN Left message for patient to call office. (See mychart message RR sent to Pt. Pt has not read at this time re:Pelvic US results). Nayla Gallegos RN Jose Oh MD to [facility] Ad[facility] [place] 11/24/24 8:58 AM Result Note Schedule consult w/ me, can be VV if she prefers. Jose Oh MD PELVIC US [facility] documented in this encounter [facility] 11-24-2024 Telephone encounter Note Left message for patient to call office. (See mychart message RR sent to Pt. Pt has not read at this time re:Pelvic US results). Nayla Gallegos RN [facility] 11-24-2024 Telephone encounter Note Jose Oh MD to [facility]-Solution Advisor [place] 11/24/24 8:58 AM Result Note Schedule consult w/ me, can be VV if she prefers. Jose Oh MD PELVIC US WHI [facility] 11-22-2024 Note HNO ID: [id number] Author: LAURITA JO MD Service: ? Author Type: Physician Type: Progress Notes Filed: 11/22/2024 12:45 Note Text: The patient presents for requested ultrasound. Full report available in the Imaging tab in [employer]. Laurita Jo MD [facility] 11-22-2024 History of Present illness Narrative The patient presents for requested ultrasound. Full report available in the Imaging tab in [employer]. Laurita Jo MD documented in this encounter [facility] 11-18-2024 Note HNO ID: [id number] Author: MALATHI CARDOSO MD Service: ? Author Type: Physician Type: Progress Notes Filed: 11/18/2024 16:59 Note Text: VIRTUAL VISIT PROGRESS NOTE This is a virtual visit using [employer] Video Visit. It required patient-provider interaction for the medical decision making as documented below. I have communicated my name and active licensure. The patient's identity and physical location were verified at the time of this visit. Either the patient or their legal merchandiser retail representative has been informed of the risks and benefits of -- and alternatives to -- treatment through a remote evaluation and consents to proceed with the evaluation remotely. Malathi Zambrano is a 54 year old female seen for bleeding after IUD removal. FSH wnl. EMB benign but suggest polyp. Bleeding stopped after 3 days. Pap with endometrial cells. Discussed in office polyp removal vs DANDC. Will get US first. If thin endometrial lining may wait and seen if bleeding returns. HISTORY REVIEWED (electronic chart updated): PAST MEDICAL HISTORY Diagnosis Date Abdominal pain, left upper quadrant Abdominal pain, unspecified site Acquired spondylolisthesis 07/25/2010 Acute gastritis without mention of hemorrhage Arthritis Asthma (HCC) Calcaneal spur 10/15/2009 COPD (chronic obstructive pulmonary disease) (HCC) Cough DEPRESSIVE DISORDER NEC 06/15/2007 Depressive disorder, not elsewhere classified Diabetes mellitus without mention of complication Diabetes mellitus Diabetes mellitus without mention of complication Diabetes mellitus type 2 Displacement of lumbar intervertebral disc without myelopathy 12/30/2009 Esophageal reflux 10/01/2006 Esophagitis, unspecified Fibromyalgia 07/25/2010 Generalized anxiety disorder Anxiety, Generalized Hemorrhage of gastrointestinal tract, unspecified Hypertension Internal hemorrhoids without mention of complication Left carpal tunnel syndrome 09/11/2013 Lumbago 08/05/2008 Migraine 03/02/2009 Mixed stress and urge urinary incontinence Myalgia and myositis, unspecified Obesity, unspecified Obesity ZHAO (obstructive sleep apnea) 05/01/2011 uses C-PAP PMH - PAST MEDICAL HISTORY OF allergic syndrome; gets allergy shots PMH - PAST MEDICAL HISTORY OF bipolar Psoriasis and similar disorders Sleep apnea Spondylolysis, 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 Grissom saw in the past Vitamin D deficiency 11/29/2010 on calcitriol PAST SURGICAL HISTORY Procedure Laterality Date ABDOMINAL SURGERY HX DELIVERY ONLY 2001,2003 COLONOSCOPY FLX DX W/COLLJ SPEC WHEN PFRMD 02/05/2015 Colonoscopy out pt [facility] D+C 01/27/2021 IUD insertion- BENIGN PATHOLOGY EGD TRANSORAL BIOPSY SINGLE/MULTIPLE 05/02/2006 ESOPHAGOGASTRODUODENOSCOPY TRANSORAL DIAGNOSTIC 02/05/2015 EGD out pt [facility] ESOPHAGOGASTRODUODENOSCOPY TRANSORAL DIAGNOSTIC 01/13/2019 EGD HYSTEROSCOPY BX ENDOMETRIUMAND/POLYPC W/WO DANDC 08/08/2018 AUB, menorrhagia INCISE FINGER TENDON SHEATH Left 08/18/2021 Left trigger thumb release INCISION EXTENSOR TENDON SHEATH WRIST Right 11/17/2020 Right wrist 1st dorsal compartment release, synovectomy, 2nd dorsal release MIRENA IUD 01/27/2021 insertion PAST SURGICAL HISTORY OF 07/2005 carpal tunnel right hand PAST SURGICAL HISTORY OF 1973 upper lip - plastic surgery. PAST SURGICAL HISTORY OF 2010 right plantar fasciectomy REVISE MEDIAN N/CARPAL TUNNEL SURG Right 01/18/2023 [facility] COSMET[facility] SURGERY SIGMOIDOSCOPY FLX DX W/COLLJ SPEC BR/WA IF PFRMD 05/22/2006 FAMILY HISTORY Problem Relation Age of Onset Diabetes Mother Asthma Mother Heart Mother Brain Cancer Mother Cancer Father AT 71 R/T BLADDER Heart Father Asthma Sister other (ulcers) Sister Lung Cancer Sister Social History Tobacco Use Smoking status: Never Smokeless tobacco: Never Tobacco comments: social smoker in teens Vaping Use Vaping status: Never Used Substance Use Topics Alcohol use: No Drug use: No Current Outpatient Medications Medication Sig Blood-Glucose Sensor (DEXCOM G7 SENSOR) franklin Apply new sensor every ten (10) days. cyclobenzaprine (FLEXERIL) 10 mg tablet Take 0.5-1 tablets by mouth two times a day as needed. ibuprofen (MOTRIN) 800 mg tablet Take 1 tablet by mouth every 8 hours as needed for pain. blood sugar diagnostic (TRUE METRIX GLUCOSE TEST STRIP) test strip Use with blood glucose test four times a day. Insulin Dep Yes DX E11.65 Blood-Glucose Meter (TRUE METRIX GLUCOSE METER) 1 kit four times daily. DX E11.65 Insulin yes Blood-Glucose Meter,Continuous (DEXCOM G7 BINDERY MACHINE TENDER) misc Use to check blood sugar at least four (4) times daily. CPAP Continue APAP @ 13-20 cm of water with humidification. Mask (per patient preference) optional chin strap (if indicated) , filters, tubing, humidifier and life (more content not included)... [facility] 11-18-2024 History of Present illness Narrative VIRTUAL VISIT PROGRESS NOTE This is a virtual visit using [email or web address] Zoom Video Visit. It required patient-provider interaction for the medical decision making as documented below. I have communicated my name and active licensure. The patient's identity and physical location were verified at the time of this visit. Either the patient or their legal merchandiser retail representative has been informed of the risks and benefits of -- and alternatives to -- treatment through a remote evaluation and consents to proceed with the evaluation remotely. Malathi Zambrano is a 54 year old female seen for bleeding after IUD removal. FSH wnl. EMB benign but suggest polyp. Bleeding stopped after 3 days. Pap with endometrial cells. Discussed in office polyp removal vs D&C. Will get US first. If thin endometrial lining may wait and seen if bleeding returns. HISTORY REVIEWED (electronic chart updated): PAST MEDICAL HISTORY Diagnosis Date Abdominal pain, left upper quadrant Abdominal pain, unspecified site Acquired spondylolisthesis 07/25/2010 Acute gastritis without mention of hemorrhage Arthritis Asthma (HCC) Calcaneal spur 10/15/2009 COPD (chronic obstructive pulmonary disease) ([facility]) Cough DEPRESSIVE DISORDER NEC 06/15/2007 Depressive disorder, not elsewhere classified Diabetes mellitus without mention of complication Diabetes mellitus Diabetes mellitus without mention of complication Diabetes mellitus type 2 Displacement of lumbar intervertebral disc without myelopathy 12/30/2009 Esophageal reflux 10/01/2006 Esophagitis, unspecified Fibromyalgia 07/25/2010 Generalized anxiety disorder Anxiety, Generalized Hemorrhage of gastrointestinal tract, unspecified Hypertension Internal hemorrhoids without mention of complication Left carpal tunnel syndrome 09/11/2013 Lumbago 08/05/2008 Migraine 03/02/2009 Mixed stress and urge urinary incontinence Myalgia and myositis, unspecified Obesity, unspecified Obesity ZHAO (obstructive sleep apnea) 05/01/2011 uses C-PAP PMH - PAST MEDICAL HISTORY OF allergic syndrome; gets allergy shots PMH - PAST MEDICAL HISTORY OF bipolar Psoriasis and similar disorders Sleep apnea Spondylolysis, 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 Grissom saw in the past Vitamin D deficiency 11/29/2010 on calcitriol PAST SURGICAL HISTORY Procedure Laterality Date ABDOMINAL SURGERY HX DELIVERY ONLY 2001,2003 COLONOSCOPY FLX DX W/COLLJ SPEC WHEN PFRMD 02/05/2015 Colonoscopy out pt [facility] D+C 01/27/2021 IUD insertion- BENIGN PATHOLOGY EGD TRANSORAL BIOPSY SINGLE/MULTIPLE 05/02/2006 ESOPHAGOGASTRODUODENOSCOPY TRANSORAL DIAGNOSTIC 02/05/2015 EGD out pt [facility] ESOPHAGOGASTRODUODENOSCOPY TRANSORAL DIAGNOSTIC 01/13/2019 EGD HYSTEROSCOPY BX ENDOMETRIUM&/POLYPC W/WO D&C 08/08/2018 AUB, menorrhagia INCISE FINGER TENDON SHEATH Left 08/18/2021 Left trigger thumb release INCISION EXTENSOR TENDON SHEATH WRIST Right 11/17/2020 Right wrist 1st dorsal compartment release, synovectomy, 2nd dorsal release MIRENA IUD 01/27/2021 insertion PAST SURGICAL HISTORY OF 07/2005 carpal tunnel right hand PAST SURGICAL HISTORY OF 1973 upper lip - plastic surgery. PAST SURGICAL HISTORY OF 2010 right plantar fasciectomy REVISE MEDIAN N/CARPAL TUNNEL SURG Right 01/18/2023 [facility] COSMETIC SURGERY SIGMOIDOSCOPY FLX DX W/COLLJ SPEC BR/WA IF PFRMD 05/22/2006 FAMILY HISTORY Problem Relation Age of Onset Diabetes Mother Asthma Mother Heart Mother Brain Cancer Mother Cancer Father AT 71 R/T BLADDER Heart Father Asthma Sister other (ulcers) Sister Lung Cancer Sister Social History Tobacco Use Smoking status: Never Smokeless tobacco: Never Tobacco comments: social smoker in teens Vaping Use Vaping status: Never Used Substance Use Topics Alcohol use: No Drug use: No Current Outpatient Medications Medication Sig Blood-Glucose Sensor (DEXCOM G7 SENSOR) franklin Apply new sensor every ten (10) days. cyclobenzaprine (FLEXERIL) 10 mg tablet Take 0.5-1 tablets by mouth two times a day as needed. ibuprofen (MOTRIN) 800 mg tablet Take 1 tablet by mouth every 8 hours as needed for pain. blood sugar diagnostic (TRUE METRIX GLUCOSE TEST STRIP) test strip Use with blood glucose test four times a day. Insulin Dep Yes DX E11.65 Blood-Glucose Meter (TRUE METRIX GLUCOSE METER) 1 kit four times daily. DX E11.65 Insulin yes Blood-Glucose Meter,Continuous (DEXCOM G7 BINDERY MACHINE TENDER) misc Use to check blood sugar at least four (4) times daily. CPAP Continue APAP @ 13-20 cm of water with humidification. Mask (per patient preference) optional chin strap (if indicated) , filters, tubing, humidifier and lifetime supplies. EPR set at 3. (G47.33) ZHAO (obstructive sleep apnea). Needs new mask at least every 3 months and needs new mask now since current one is leaking. Also needs new headgear now since current one is loose. fluconazole (DIFLUCAN) 150 mg tablet Take by mouth. Take at onset of yeast infection. Repeat after 5 to 7 days if ongoing symptoms. May treat recurrent episodes as needed. montelukast (SINGULAIR) 10 mg tablet Take 1 tablet by mouth daily at bedtime. flash glucose sensor (FREESTYLE DUSTY 2 SENSOR) kit apply 1 SENSOR to back OF UPPER ARM REMOVE AND REPLACE every 14 days use with DEVICE to MONITOR BLOOD SUGAR nystatin (MYCOSTATIN) cream Apply 1 application to affected area two times a day as needed. atenolol (TENORMIN) 25 mg tablet Take 1 tablet by mouth once daily. As directed Cane Use as directed for help with balance Cholecalciferol, Vitamin D3, 125 mcg (5,000 unit) cap Take 1 capsule by mouth once daily. DULoxetine (CYMBALTA) 30 mg capsule Take 1 capsule by mouth once daily. omeprazole (PRILOSEC) 20 mg capsule Take 1 capsule by mouth daily before breakfast. 1/2 hr before meal. As directed. insulin aspart U-100 (NOVOLOG FLEXPEN U-100 INSULIN) 100 unit/mL (3 mL) WITH FIRST BITE OF FOOD, 30 UNITS W/BREAKFAST, 30 UNITS W/LUNCH, 30 UNITS W/DINNER; MAY ADJUST WITH SLIDING SCALE GIVEN HIGH BLOOD SUGAR. Max dose 105 units per day insulin glargine (LANTUS SOLOSTAR U-100 INSULIN) 100 unit/mL (3 mL) Inject 120 Units subcutaneously daily at bedtime. Please dispense 15 pens (3 boxes at a time). Insulin [place], Disposable, (BD INSULIN PEN NEEDLE UF) 29 gauge x 1/2 Use 1 Needle For Each Dose 3-4 Times Daily With Novolog Pen For Meals and At Bedtime if Needed fluticasone (FLOVENT HFA) 220 mcg/actuation inhaler Inhale 2 Puffs as instructed two times a day. Blood-Glucose Meter (FREESTYLE LITE METER) monitoring kit Check blood sugars as directed for controlled Type 2 DM without complication albuterol HFA (VENTOLIN HFA) 90 mcg/actuation inhaler Inhale 2 Puffs as instructed every 4 hours as needed for wheezing/shortness of breath. albuterol (PROVENTIL) 2.5 mg /3 mL (0.083 %) nebulizer solution Use 3 mL via nebulizer every 4 hours as needed for wheezing/shortness of breath. Use over 5-15minutes. hydroCHLOROthiazide (HYDRODIURIL, ESIDRIX) 25 mg tablet Take 1 tablet by mouth once daily. As needed for swelling from fluid retention flash glucose scanning reader (FREESTYLE DUSTY 2 READER) Check glucose 4 times a day or more as directed. Dx: ICD10: E11.40, Z79.4. Insulin: Yes. omega-3/dha/epa/dpa/fish oil (OMEGA-3 2100 ORAL) Take 1 tablet by mouth twice daily. ascorbic acid (VITAMIN C ORAL) Take 3,000 Units by mouth once daily. COMPOUNDED PRESCRIPTION CPAP supplies--mask per patient preference, tubing, humidifier as needed. G47.33, Z99.89 ZHAO on CPAP Incontinence Pad, Liner, Disp pads Change pad 3 to 5 times daily. N39.46 Lancets (FREESTYLE LANCETS) lancets tests sugar 4 to 6 times daily DX:250.02 Insulin dependent (this is corrected RX) No current facility-administered medications for this visit. ALLERGIES Allergen Reactions Losartan Intolerance dizziness; tried in the past; even lowest dose causes dizziness Vicodin [Hydrocodon* GI Upset Amlodipine Intolerance Headache and stomach issues Codeine Antitussive* GI Upset Latex Rash reddness itching Lisinopril Cough Metformin GI Upset GI upset Relafen [Nabumetone] GI Upset REVIEW OF SYSTEMS: GENERAL: feeling well without fatigue, no recent change in weight All other ROS: negative PHYSICAL EXAMINATION: VIDEO EXAM: (if completed, performed via video enabled technology) No exam performed ASSESSMENT: (R30.0) Dysuria (primary encounter diagnosis) (N93.9, N84.0) Abnormal uterine bleeding due to endometrial polyp PLAN: US and then possible D&C Did not tolerated EMB well. There are no Patient Instructions on file for this visit. I spent a total of 15 minutes on the date of the service which included preparing to see the patient, [id number] patient care, and completing clinical documentation Malathi Cardoso MD documented in this encounter [facility] 11-07-2024 Telephone encounter Note Patient has been identified by name and date of : yes Patient phones for refill(s): Requested Prescriptions Pending Prescriptions Disp Refills ibuprofen (MOTRIN) 800 mg tablet 30 tablet 1 Sig: Take 1 tablet by mouth every 8 hours as needed for pain. Date of last office visit in primary care: 09/12/2024 Date of next office visit in primary care: 01/14/2025 Please advise. Thank you. Katie Moran MA. [facility] 11-07-2024 Miscellaneous Notes Patient has been identified by name and date of : yes Patient phones for refill(s): Requested Prescriptions Pending Prescriptions Disp Refills ibuprofen (MOTRIN) 800 mg tablet 30 tablet 1 Sig: Take 1 tablet by mouth every 8 hours as needed for pain. Date of last office visit in primary care: 09/12/2024 Date of next office visit in primary care: 01/14/2025 Please advise. Thank you. Katie Moran MA. documented in this encounter [facility] 11-07-2024 Telephone encounter Note Patient has been identified by name and date of : yes Patient phones for refill(s): Requested Prescriptions Pending Prescriptions Disp Refills mupirocin (BACTROBAN) 2 % ointment Sig: Apply 1 application to affected area three times a day. Location: torso wounds as directed till healed cyclobenzaprine (FLEXERIL) 10 mg tablet 30 tablet 2 Sig: Take 0.5-1 tablets by mouth two times a day as needed. Date of last office visit in primary care: 09/12/2024 Date of next office visit in primary care: 11/07/2024 Please advise. Thank you. Katie Moran MA. [facility] 11-07-2024 Miscellaneous Notes Patient has been identified by name and date of : yes Patient phones for refill(s): Requested Prescriptions Pending Prescriptions Disp Refills mupirocin (BACTROBAN) 2 % ointment Sig: Apply 1 application to affected area three times a day. Location: torso wounds as directed till healed cyclobenzaprine (FLEXERIL) 10 mg tablet 30 tablet 2 Sig: Take 0.5-1 tablets by mouth two times a day as needed. Date of last office visit in primary care: 09/12/2024 Date of next office visit in primary care: 11/07/2024 Please advise. Thank you. Katie Moran MA. documented in this encounter [facility] 11-07-2024 Telephone encounter Note Patient has been identified by name and date of : yes Patient phones for refill(s): Requested Prescriptions Pending Prescriptions Disp Refills Blood-Glucose Sensor (DEXCOM G7 SENSOR) franklin 9 each 3 Sig: Apply new sensor every ten (10) days. Date of last office visit in primary care: 09/12/2024 Date of next office visit in primary care: 11/07/2024 Please advise. Thank you. Katie Moran MA. [facility] 11-07-2024 Miscellaneous Notes Patient has been identified by name and date of : yes Patient phones for refill(s): Requested Prescriptions Pending Prescriptions Disp Refills Blood-Glucose Sensor (DEXCOM G7 SENSOR) franklin 9 each 3 Sig: Apply new sensor every ten (10) days. Date of last office visit in primary care: 09/12/2024 Date of next office visit in primary care: 11/07/2024 Please advise. Thank you. Katie Moran MA. documented in this encounter [facility] 11-04-2024 Telephone encounter Note ok [facility] 11-04-2024 Miscellaneous Notes ok Jeanne from [facility] pharmacy calling patient insurance not covering One Touch test strips, only True Metrix. So now need new meter and test strip rx sent to the pharmacy. Pending new rx to file. Please advise The patient has been identified by name and date of : Yes, pharmacy Caregiver verified no other encounters exist for this prescription request: Yes Caregiver confirmed with patient/requestor that no other refills are due, in the near future, with this provider at this time: Yes The last office visit in the department: 09/12/2024 Does the patient have a future office visit with this provider/department: Yes 01/14/2025 Requested Prescriptions Pending Prescriptions Disp Refills blood sugar diagnostic (TRUE METRIX GLUCOSE TEST STRIP) test strip 200 strip 5 Sig: Use with blood glucose test four times a day. Insulin Dep Yes DX E11.65 Blood-Glucose Meter (TRUE METRIX GLUCOSE METER) 1 each 0 Si kit four times daily. DX E11.65 Insulin yes Mily Madison LPN November 04, 2024 1:01 PM documented in this encounter [facility] 11-04-2024 Telephone encounter Note Jeanne from [facility] pharmacy calling patient insurance not covering One Touch test strips, only True Metrix. So now need new meter and test strip rx sent to the pharmacy. Pending new rx to file. Please advise The patient has been identified by name and date of : Yes, pharmacy Caregiver verified no other encounters exist for this prescription request: Yes Caregiver confirmed with patient/requestor that no other refills are due, in the near future, with this provider at this time: Yes The last office visit in the department: 09/12/2024 Does the patient have a future office visit with this provider/department: Yes 01/14/2025 Requested Prescriptions Pending Prescriptions Disp Refills blood sugar diagnostic (TRUE METRIX GLUCOSE TEST STRIP) test strip 200 strip 5 Sig: Use with blood glucose test four times a day. Insulin Dep Yes DX E11.65 Blood-Glucose Meter (TRUE METRIX GLUCOSE METER) 1 each 0 Si kit four times daily. DX E11.65 Insulin yes Mily Madison LPN November 04, 2024 1:[address] [facility] 11-03-2024 Telephone encounter Note [facility] calling for request for new prescriptions for pt's glucometer and test strips. Pended for provider review. Anna Smith RN [facility] 11-03-2024 Miscellaneous Notes [facility] calling for request for new prescriptions for pt's glucometer and test strips. Pended for provider review. Anna Smith RN documented in this encounter [facility] 10-31-2024 Instructions Ling Fisher MA - 10/31/2024 3:35 PM EDT YOUR RECOVERY After your biopsy you may have: Vaginal bleeding (less than a normal menstrual period) Mild cramping Do NOT put anything in the vagina for 1 week after your endometrial biopsy. This includes: tampons douches and refraining from having sexual intercourse If you have any discomfort, you may take an over the counter pain medication (motrin, advil, ibuprofen, tylenol, etc). If this does not relieve your discomfort, contact the office. It is okay to wear a sanitary pad until the discharge and spotting stops. RISKS Although problems seldom occur with endometrial biopsies, there can be some complications. You may feel faint during and shortly after the procedure as well as have some bleeding after the procedure. There is also a risk of infection after the procedure. These complications are rare and can be easily treated. You should contact you doctor is you have any of the following: Heavy bleeding (more than your normal period) Bleeding with clots Severe abdominal pain Fever (more than 100.4F) Foul smelling vaginal discharge RESULTS We will have the results of your biopsy in 1-2 weeks. If you do not hear the results of your biopsy after 2 weeks, please contact the office for the results. If you have any additional questions or concerns please do not hesitate to contact the office. documented in this encounter [facility] 10-31-2024 Note HNO ID: [id number] Author: MALATHI CARDOSO MD Service: ? Author Type: Physician Type: Progress Notes Filed: 10/31/2024 16:06 Note Text: [employer] Consultant offered: Patient declines. Malathi is a 54 year old Female who presents today for an endometrial biopsy for abnormal uterine bleeding. test: n/a UNIVERSAL PROTOCOL / SAFETY CHECKLIST Procedure to be Performed: Endometrial Biopsy Sign In: A Moment of CARE was completed. Appropriate PPE (Personal Protective Equipment) worn by all providers involved with the procedure. Special equipment not required. Patient/Surrogate Stated/Verified: Patient name, Date of , Relevant allergies, and The intended procedure Time Out: Relevant labs, photos, and/or imaging studies have been reviewed. Intended patient and procedure match the source document(s) (e.g. consent, HANDP, associated studies [imaging, pathology]) match the intended patient and procedure. Consent obtained and matches the intended procedure. Yes. Correct side/site is not applicable. Medications required for this procedure are not applicable. Fire risk assessed and is not applicable. Implants: are not applicable. Sign Out: Specimens are all correctly labeled and sent. All instruments, equipment, possible retained foreign bodies are accounted for. Yes. The post-procedure plan of care has been communicated to the patient or surrogate. PROCEDURE: EXTERNAL GENITALIA: Normal in appearance without lesions VAGINA: Normal in appearance without lesions BIOPSY: Speculum placed into the vagina with excellent visualization of the cervix. Cervix cleaned with betadine. Anterior lip of cervix grasped with single toothed tenaculum. Uterus sounded to 8 cm. Pipelle inserted into the uterus without difficulty and endometrial biopsy obtained. Specimen labeled and sent to pathology. Hemostasis achieved. Procedure Summary: Patient tolerated procedure well. ASSESSMENT: abnormal uterine bleeding PLAN: Specimens labeled and sent to Pathology. Will notify patient of results in 1-2 weeks. Planning another IUD if normal pathology Malathi Cardoso MD [facility] 10-31-2024 History of Present illness Narrative [employer] Consultant offered: Patient declines. Malathi is a 54 year old Female who presents today for an endometrial biopsy for abnormal uterine bleeding. test: n/a UNIVERSAL PROTOCOL / SAFETY CHECKLIST Procedure to be Performed: Endometrial Biopsy Sign In: A Moment of CARE was completed. Appropriate PPE (Personal Protective Equipment) worn by all providers involved with the procedure. Special equipment not required. Patient/Surrogate Stated/Verified: Patient name, Date of , Relevant allergies, and The intended procedure Time Out: Relevant labs, photos, and/or imaging studies have been reviewed. Intended patient and procedure match the source document(s) (e.g. consent, H&P, associated studies [imaging, pathology]) match the intended patient and procedure. Consent obtained and matches the intended procedure. Yes. Correct side/site is not applicable. Medications required for this procedure are not applicable. Fire risk assessed and is not applicable. Implants: are not applicable. Sign Out: Specimens are all correctly labeled and sent. All instruments, equipment, possible retained foreign bodies are accounted for. Yes. The post-procedure plan of care has been communicated to the patient or surrogate. PROCEDURE: EXTERNAL GENITALIA: Normal in appearance without lesions VAGINA: Normal in appearance without lesions BIOPSY: Speculum placed into the vagina with excellent visualization of the cervix. Cervix cleaned with betadine. Anterior lip of cervix grasped with single toothed tenaculum. Uterus sounded to 8 cm. Pipelle inserted into the uterus without difficulty and endometrial biopsy obtained. Specimen labeled and sent to pathology. Hemostasis achieved. Procedure Summary: Patient tolerated procedure well. ASSESSMENT: abnormal uterine bleeding PLAN: Specimens labeled and sent to Pathology. Will notify patient of results in 1-2 weeks. Planning another IUD if normal pathology Malathi Cardoso MD documented in this encounter [facility] 10-29-2024 Telephone encounter Note Patient has also sent a Mychart message. Malathi Colin RN [facility] 10-29-2024 Miscellaneous Notes Patient has also sent a Mychart message. Malathi Colin RN Patient called stating that she has had vaginal bleeding since Mirena was removed 10/21/2024 and bleeding has been getting heavier. Patient asking if an endometrial biopsy is next step before having another IUD placed and if EMB can be done at appointment on 10/31? If EMB can be done at appointment, patient wouild like a call so she can be prepared. Patient is aware that provider is out of the office until 10/31/24 documented in this encounter [facility] 10-29-2024 Telephone encounter Note Please also See 10/29/24 phone note. Malathi Colin RN [facility] 10-29-2024 Miscellaneous Notes Please also See 10/29/24 phone note. Malathi Colin RN documented in this encounter [facility] 10-29-2024 Telephone encounter Note Patient called stating that she has had vaginal bleeding since Mirena was removed 10/21/2024 and bleeding has been getting heavier. Patient asking if an endometrial biopsy is next step before having another IUD placed and if EMB can be done at appointment on 10/31? If EMB can be done at appointment, patient wouild like a call so she can be prepared. Patient is aware that provider is out of the office until 10/31/24 [facility] 10-21-2024 Note HNO ID: [id number] Author: MALATHI CARDOSO MD Service: ? Author Type: Physician Type: Progress Notes Filed: 10/21/2024 14:31 Note Text: [employer] Consultant offered: Patient declines. Malathi presents for removal of IUD due to pain and irregular bleeding. UNIVERSAL PROTOCOL / SAFETY CHECKLIST Procedure to be Performed: IUD Removal Sign In: A Moment of CARE was completed. Appropriate PPE (Personal Protective Equipment) worn by all providers involved with the procedure. Special equipment not required. Patient/Surrogate Stated/Verified: Patient name, Date of , Relevant allergies, and The intended procedure Time Out: Relevant labs, photos, and/or imaging studies have been reviewed. Intended patient and procedure match the source document(s) (e.g. consent, HANDP, associated studies [imaging, pathology]) match the intended patient and procedure. Consent obtained and matches the intended procedure. Yes. Correct side/site is not applicable. Medications required for this procedure are not applicable. Fire risk assessed and is not applicable. Implants: are not applicable. Sign Out: Specimens are all correctly labeled and sent. All instruments, equipment, possible retained foreign bodies are accounted for. Yes. The post-procedure plan of care has been communicated to the patient or surrogate. PROCEDURE: Speculum placed in vagina, IUD string visualized and grasped with ring forceps. ASSESSMENT/PLAN: IUD removed without difficulty, intact, and patient tolerated procedure well. Contraception plans: Mirena IUD Checking menopause state with [facility] Malathi Cardoso MD [facility] 09-23-2024 Note Patient Outreach (IN TMWS) MALATHI ZAMBRANO ([id number]) 1970 F NFR Date Time Provider Department 09/23/24 AURORA MACDONALD IN[facility] During your visit today, we recorded the following information about you: Allergies As of Date: 09/23/2024 Noted Allergy Reaction LOSARTAN 10/04/2020 5 - Intolerance Comments: dizziness; tried in the past; even lowest dose causes dizziness VICODIN (HYDROCODONE-ACETAMINOPHE*05/18/20 09 8 - GI Upset AMLODIPINE 09/21/2020 5 - Intolerance Comments: Headache and stomach issues CODEINE ANTITUSSIVE COUGH 12/10/2014 8 - GI Upset LATEX 05/04/2005 2 - Rash Comments: reddness itching LISINOPRIL 09/21/2020 3 - Cough METFORMIN 8 - GI Upset Comments: GI upset RELAFEN (NABUMETONE) 03/29/2007 8 - GI Upset Date Reviewed: 09/12/2024 Reviewed by: Randee Bansal LPN - Fully Assessed Visit Diagnosis:Encounter for screening mammogram for breast cancer [Z12.31] Order(s):NOAH SCREENING W RUDY [[id number]] Order #: [id number] FUTURE Prescriptions as of 10/24/2024 - CPAP Continue APAP @ 13-20 cm of water with humidification. Mask (per patient preference) optional chin strap (if indicated) , filters, tubing, humidifier and lifetime supplies. EPR set at 3. (G47.33) ZHAO (obstructive sleep apnea). Needs new mask at least every 3 months and needs new mask now since current one is leaking. Also needs new headgear now since current one is loose. - fluconazole (DIFLUCAN) 150 mg tablet Take by mouth. Take at onset of yeast infection. Repeat after 5 to 7 days if ongoing symptoms. May treat recurrent episodes as needed. - montelukast (SINGULAIR) 10 mg tablet Take 1 tablet by mouth daily at bedtime. - ibuprofen (MOTRIN) 800 mg tablet Take 1 tablet by mouth every 8 hours as needed for pain. - cyclobenzaprine (FLEXERIL) 10 mg tablet Take 0.5-1 tablets by mouth two times a day as needed. - flash glucose sensor (FREESTYLE DUSTY 2 SENSOR) kit apply 1 SENSOR to back OF UPPER ARM REMOVE AND REPLACE every 14 days use with DEVICE to MONITOR BLOOD SUGAR - blood sugar diagnostic (BLOOD GLUCOSE TEST) test strip Test blood sugar(s) 4 times daily. Dx: Type 2 DM - Uncontrolled E11.65 Insulin: Yes. One Touch Test strips. - nystatin (MYCOSTATIN) cream Apply 1 application to affected area two times a day as needed. - atenolol (TENORMIN) 25 mg tablet Take 1 tablet by mouth once daily. As directed - Cane Use as directed for help with balance - Cholecalciferol, Vitamin D3, 125 mcg (5,000 unit) cap Take 1 capsule by mouth once daily. - DULoxetine (CYMBALTA) 30 mg capsule Take 1 capsule by mouth once daily. - omeprazole (PRILOSEC) 20 mg capsule Take 1 capsule by mouth daily before breakfast. 1/2 hr before meal. As directed. - insulin aspart U-100 (NOVOLOG FLEXPEN U-100 INSULIN) 100 unit/mL (3 mL) WITH FIRST BITE OF FOOD, 30 UNITS W/BREAKFAST, 30 UNITS W/LUNCH, 30 UNITS W/DINNER; MAY ADJUST WITH SLIDING SCALE GIVEN HIGH BLOOD SUGAR. Max dose 105 units per day - insulin glargine (LANTUS SOLOSTAR U-100 INSULIN) 100 unit/mL (3 mL) Inject 120 Units subcutaneously daily at bedtime. Please dispense 15 pens (3 boxes at a time). - Blood-Glucose Meter,Continuous (DEXCOM G7 BINDERY MACHINE TENDER) misc Use to check blood sugar at least four (4) times daily. - Blood-Glucose Sensor (DEXCOM G7 SENSOR) franklin Apply new sensor every ten (10) days. - Insulin [place], Disposable, (BD INSULIN PEN NEEDLE UF) 29 gauge x 1/2 Use 1 Needle For Each Dose 3-4 Times Daily With Novolog Pen For Meals and At Bedtime if Needed - fluticasone (FLOVENT HFA) 220 mcg/actuation inhaler Inhale 2 Puffs as instructed two times a day. - Blood-Glucose Meter (FREESTYLE LITE METER) monitoring kit Check blood sugars as directed for controlled Type 2 DM without complication - albuterol HFA (VENTOLIN HFA) 90 mcg/actuation inhaler Inhale 2 Puffs as instructed every 4 hours as needed for wheezing/shortness of breath. - albuterol (PROVENTIL) 2.5 mg /3 mL (0.083 %) nebulizer solution Use 3 mL via nebulizer every 4 hours as needed for wheezing/shortness of breath. Use over 5-15minutes. - hydroCHLOROthiazide (HYDRODIURIL, ESIDRIX) 25 mg tablet Take 1 tablet by mouth once daily. As needed for swelling from fluid retention - flash glucose scanning reader (FREESTYLE DUSTY 2 READER) Check glucose 4 times a day or more as directed. Dx: ICD10: E11.40, Z79.4. Insulin: Yes. - omega-3/dha/epa/dpa/fish oil (OMEGA-3 2100 ORAL) Take 1 tablet by mouth twice daily. - ascorbic acid (VITAMIN C ORAL) Take 3,000 Units by mouth once daily. - mupirocin (BACTROBAN) 2 % ointment Apply 1 application to affected area three times daily. Location: torso wounds as directed till healed - COMPOUNDED PRESCRIPTION CPAP supplies--mask per patient preference, tubing, humidifier as needed. G47.33, Z99.89 ZHAO on CPAP - Incontinence Pad, Liner, Disp pads Change pad (more content not included)... [facility] 09-12-2024 Note HNO ID: [id number] Author: AURORA MACDONALD MD Service: ? Author Type: Physician Type: Progress Notes Filed: 09/12/2024 20:04 Note Text: This note was created using [email or web address]. Subjective Malathi Zambrano is a 54 year old female. Patient presents with: Follow Up Malathi is a 54-year-old female with a history of asthma, ZHAO, and neuropathy, and Type 2 diabetes presenting for a montelukast refill and issues with CPAP supplies. Malathi reports that her montelukast prescription was not received by her pharmacy, [facility], and was informed that the prescription in July. She also reports issues with obtaining CPAP supplies from [facility], stating that she uses her CPAP machine 12-15 hours a day and goes through headgear and masks faster than usual. She was previously approved for more than one mask a year, but was told that the authorization in July. She has been unable to obtain additional supplies and has been using old headgear that she had to sew herself. She reports that she cannot afford to buy new supplies out of pocket due to financial constraints. Malathi also reports right knee pain and instability, as well as plantar fasciitis. She was supposed to have surgery for plantar fasciitis in July, but had to postpone it due to moving. She reports that her knee pain is mostly on the right side, but sometimes affects the left knee as well. She describes the pain as feeling like her leg is twisted and reports tenderness on the side of her knee. She wonders if the pain is related to her neuropathy. She also reports instability in the shower due to her knee and foot pain. Blood sugars have improved. Noted stressors with having to move because person who bought the place she was renting [facility] so had to move out byjuly. In a better home in [place]. Discussed stressors with raising special needs son who will be 21. Daughter doing well overall--busy with college and work. Noted stressors with ex-hsuband. Discussed still tough since son Bernardino had and tragic circumstances--3 years coming up Worries about his daughter/her granddaughter. Malathi has a history of asthma, ZHAO, and neuropathy. She is currently taking montelukast for asthma and uses a CPAP machine for ZHAO. She also has a history of plantar fasciitis and is scheduled for surgery. PAST MEDICAL HISTORY Diagnosis Date Abdominal pain, left upper quadrant Abdominal pain, unspecified site Acquired spondylolisthesis 07/25/2010 Acute gastritis without mention of hemorrhage Arthritis Asthma ([facility]) Calcaneal spur 10/15/2009 COPD (chronic obstructive pulmonary disease) ([facility]) Cough DEPRESSIVE DISORDER NEC 06/15/2007 Depressive disorder, not elsewhere classified Diabetes mellitus without mention of complication Diabetes mellitus Diabetes mellitus without mention of complication Diabetes mellitus type 2 Displacement of lumbar intervertebral disc without myelopathy 12/30/2009 Esophageal reflux 10/01/2006 Esophagitis, unspecified Fibromyalgia 07/25/2010 Generalized anxiety disorder Anxiety, Generalized Hemorrhage of gastrointestinal tract, unspecified Hypertension Internal hemorrhoids without mention of complication Left carpal tunnel syndrome 09/11/2013 Lumbago 08/05/2008 Migraine 03/02/2009 Mixed stress and urge urinary incontinence Myalgia and myositis, unspecified Obesity, unspecified Obesity ZHAO (obstructive sleep apnea) 05/01/2011 uses C-PAP PMH - PAST MEDICAL HISTORY OF allergic syndrome; gets allergy shots PMH - PAST MEDICAL HISTORY OF bipolar Psoriasis and similar disorders Sleep apnea Spondylolysis, 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 Grissom saw in the past Vitamin D deficiency 11/29/2010 on calcitriol Current Outpatient Medications Medication Sig CPAP Continue APAP @ 13-20 cm of water with humidification. Mask (per patient preference) optional chin strap (if indicated) , filters, tubing, humidifier and lifetime supplies. EPR set at 3. (G47.33) ZHAO (obstructive sleep apnea). Needs new mask at least every 3 months and needs new mask now since current one is leaking. Also needs new headgear now since current one is loose. fluconazole (DIFLUCAN) 150 mg tablet Take by mouth. Take at onset of yeast infection. Repeat after 5 to 7 days if ongoing symptoms. May treat recurrent episodes as needed. montelukast (SINGULAIR) 10 mg tablet Take 1 tablet by mouth daily at bedtime. ibuprofen (MOTRIN) 800 mg tablet Take 1 tablet by mouth every 8 hours as needed for pain. cyclobenzaprine (FLEXERIL) 10 mg tablet Take 0.5-1 tablets by mouth two times a day as needed. flash glucose sensor (FREESTYLE DUSTY 2 SENSOR) kit apply 1 SENSOR to back OF UPPER ARM REMOVE AND REPLACE every 14 days use with DEVICE to MONITOR BLOOD SUGAR blood suga (more content not included)... [facility] 09-12-2024 History of Present illness Narrative This note was created using [email or web address]. Subjective Malathi Zambrano is a 54 year old female. Patient presents with: Follow Up Malathi is a 54-year-old female with a history of asthma, ZHAO, and neuropathy, and Type 2 diabetes presenting for a montelukast refill and issues with CPAP supplies. Malathi reports that her montelukast prescription was not received by her pharmacy, [facility], and was informed that the prescription in July. She also reports issues with obtaining CPAP supplies from [facility], stating that she uses her CPAP machine 12-15 hours a day and goes through headgear and masks faster than usual. She was previously approved for more than one mask a year, but was told that the authorization in July. She has been unable to obtain additional supplies and has been using old headgear that she had to sew herself. She reports that she cannot afford to buy new supplies out of pocket due to financial constraints. Malathi also reports right knee pain and instability, as well as plantar fasciitis. She was supposed to have surgery for plantar fasciitis in July, but had to postpone it due to moving. She reports that her knee pain is mostly on the right side, but sometimes affects the left knee as well. She describes the pain as feeling like her leg is twisted and reports tenderness on the side of her knee. She wonders if the pain is related to her neuropathy. She also reports instability in the shower due to her knee and foot pain. Blood sugars have improved. Noted stressors with having to move because person who bought the place she was renting no longer would take [employer] so had to move out byjuly. In a better home in [place]. Discussed stressors with raising special needs son who will be 21. Daughter doing well overall--busy with college and work. Noted stressors with ex-hsuband. Discussed still tough since son Bernardino had and tragic circumstances--3 years coming up Worries about his daughter/her granddaughter. Malathi has a history of asthma, ZHAO, and neuropathy. She is currently taking montelukast for asthma and uses a CPAP machine for ZHAO. She also has a history of plantar fasciitis and is scheduled for surgery. PAST MEDICAL HISTORY Diagnosis Date Abdominal pain, left upper quadrant Abdominal pain, unspecified site Acquired spondylolisthesis 07/25/2010 Acute gastritis without mention of hemorrhage Arthritis Asthma ([facility]) Calcaneal spur 10/15/2009 COPD (chronic obstructive pulmonary disease) ([facility]) Cough DEPRESSIVE DISORDER NEC 06/15/2007 Depressive disorder, not elsewhere classified Diabetes mellitus without mention of complication Diabetes mellitus Diabetes mellitus without mention of complication Diabetes mellitus type 2 Displacement of lumbar intervertebral disc without myelopathy 12/30/2009 Esophageal reflux 10/01/2006 Esophagitis, unspecified Fibromyalgia 07/25/2010 Generalized anxiety disorder Anxiety, Generalized Hemorrhage of gastrointestinal tract, unspecified Hypertension Internal hemorrhoids without mention of complication Left carpal tunnel syndrome 09/11/2013 Lumbago 08/05/2008 Migraine 03/02/2009 Mixed stress and urge urinary incontinence Myalgia and myositis, unspecified Obesity, unspecified Obesity ZHAO (obstructive sleep apnea) 05/01/2011 uses C-PAP PMH - PAST MEDICAL HISTORY OF allergic syndrome; gets allergy shots PMH - PAST MEDICAL HISTORY OF bipolar Psoriasis and similar disorders Sleep apnea Spondylolysis, 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 Grissom saw in the past Vitamin D deficiency 11/29/2010 on calcitriol Current Outpatient Medications Medication Sig CPAP Continue APAP @ 13-20 cm of water with humidification. Mask (per patient preference) optional chin strap (if indicated) , filters, tubing, humidifier and lifetime supplies. EPR set at 3. (G47.33) ZHAO (obstructive sleep apnea). Needs new mask at least every 3 months and needs new mask now since current one is leaking. Also needs new headgear now since current one is loose. fluconazole (DIFLUCAN) 150 mg tablet Take by mouth. Take at onset of yeast infection. Repeat after 5 to 7 days if ongoing symptoms. May treat recurrent episodes as needed. montelukast (SINGULAIR) 10 mg tablet Take 1 tablet by mouth daily at bedtime. ibuprofen (MOTRIN) 800 mg tablet Take 1 tablet by mouth every 8 hours as needed for pain. cyclobenzaprine (FLEXERIL) 10 mg tablet Take 0.5-1 tablets by mouth two times a day as needed. flash glucose sensor (FREESTYLE DUSTY 2 SENSOR) kit apply 1 SENSOR to back OF UPPER ARM REMOVE AND REPLACE every 14 days use with DEVICE to MONITOR BLOOD SUGAR blood sugar diagnostic (BLOOD GLUCOSE TEST) test strip Test blood sugar(s) 4 times daily. Dx: Type 2 DM - Uncontrolled E11.65 Insulin: Yes. One Touch Test strips. nystatin (MYCOSTATIN) cream Apply 1 application to affected area two times a day as needed. atenolol (TENORMIN) 25 mg tablet Take 1 tablet by mouth once daily. As directed Cane Use as directed for help with balance Cholecalciferol, Vitamin D3, 125 mcg (5,000 unit) cap Take 1 capsule by mouth once daily. DULoxetine (CYMBALTA) 30 mg capsule Take 1 capsule by mouth once daily. omeprazole (PRILOSEC) 20 mg capsule Take 1 capsule by mouth daily before breakfast. 1/2 hr before meal. As directed. insulin aspart U-100 (NOVOLOG FLEXPEN U-100 INSULIN) 100 unit/mL (3 mL) WITH FIRST BITE OF FOOD, 30 UNITS W/BREAKFAST, 30 UNITS W/LUNCH, 30 UNITS W/DINNER; MAY ADJUST WITH SLIDING SCALE GIVEN HIGH BLOOD SUGAR. Max dose 105 units per day insulin glargine (LANTUS SOLOSTAR U-100 INSULIN) 100 unit/mL (3 mL) Inject 120 Units subcutaneously daily at bedtime. Please dispense 15 pens (3 boxes at a time). Blood-Glucose Meter,Continuous (DEXCOM G7 BINDERY MACHINE TENDER) [facility] Use to check blood sugar at least four (4) times daily. Blood-Glucose Sensor (DEXCOM G7 SENSOR) franklin Apply new sensor every ten (10) days. Insulin [place], Disposable, (BD INSULIN PEN NEEDLE UF) 29 gauge x 1/2 Use 1 Needle For Each Dose 3-4 Times Daily With Novolog Pen For Meals and At Bedtime if Needed fluticasone (FLOVENT HFA) 220 mcg/actuation inhaler Inhale 2 Puffs as instructed two times a day. flaxseed oil (OMEGA 3 ORAL) Take by mouth. Blood-Glucose Meter (FREESTYLE LITE METER) monitoring kit Check blood sugars as directed for controlled Type 2 DM without complication albuterol HFA (VENTOLIN HFA) 90 mcg/actuation inhaler Inhale 2 Puffs as instructed every 4 hours as needed for wheezing/shortness of breath. albuterol (PROVENTIL) 2.5 mg /3 mL (0.083 %) nebulizer solution Use 3 mL via nebulizer every 4 hours as needed for wheezing/shortness of breath. Use over 5-15minutes. hydroCHLOROthiazide (HYDRODIURIL, ESIDRIX) 25 mg tablet Take 1 tablet by mouth once daily. As needed for swelling from fluid retention flash glucose scanning reader (FREESTYLE DUSTY 2 READER) Check glucose 4 times a day or more as directed. Dx: ICD10: E11.40, Z79.4. Insulin: Yes. omega-3/dha/epa/dpa/fish oil (OMEGA-3 2100 ORAL) Take 1 tablet by mouth twice daily. ascorbic acid (VITAMIN C ORAL) Take 3,000 Units by mouth once daily. mupirocin (BACTROBAN) 2 % ointment Apply 1 application to affected area three times daily. Location: torso wounds as directed till healed COMPOUNDED PRESCRIPTION CPAP supplies--mask per patient preference, tubing, humidifier as needed. G47.33, Z99.89 ZHAO on CPAP Incontinence Pad, Liner, Disp pads Change pad 3 to 5 times daily. N39.46 Lancets (FREESTYLE LANCETS) lancets tests sugar 4 to 6 times daily DX:250.02 Insulin dependent (this is corrected RX) No current facility-administered medications for this visit. Review of Systems Objective BP 118/62 (BP Site: Left Arm, BP Position: Sitting, BP Cuff Size: Large Adult) Pulse 75 Temp 37.2 C (98.9 F) Resp 16 Ht 157.5 cm (5' 2) Wt 130.1 kg (286 lb 13.1 oz) LMP 11/28/2020 (LMP Unknown) SpO2 99% BMI 52.46 kg/m Physical Exam Assessment and Plan # ZHAO (obstructive sleep apnea) (G47.33) - Requires frequent use of CPAP, approximately 12-15 hours daily. - Prescription for CPAP supplies, including Tracy full mask and headgear, sent to [facility]. Ideally, would get new head gear every 3 months and new mask at least twice a year. - Discussed challenges with insurance coverage for supplies; advised patient to contact [place] for potential alternatives. # Type 2 diabetes mellitus with diabetic neuropathy, with long-term current use of insulin ([facility]) (E11.40) - Hemoglobin A1c is 6.8%. - Neuropathy may be contributing to right knee pain but suspect due to plantar fasciitis and how she shifts weight to right leg. - Continue current insulin regimen. # Right medial knee pain (M25.561) - Pain localized to the medial aspect of the right knee, exacerbated by weight-bearing. - Recent X-ray by Dr. Fonseac shows no evidence of osteoarthritis. - Suspected strain on medial knee structures due to compensatory weight-bearing from plantar fasciitis. - Recommended stretching exercises to alleviate tension. # Class 3 severe obesity due to excess calories with serious comorbidity and body mass index (BMI) of 50.0 to 59.9 in adult ([facility]) (E66.813) - Discussed impact of obesity on joint pain and overall health. - Encouraged weight management strategies. - Weight is going down since last appointment 298 to 286 pounds. # Generalized anxiety disorder (F41.1) # Other depression (F32.89) - Discussed current stressors and impact on mental health. -Emotional support given. - Encouraged continuation of mental health support and consider counseling again. Noted last saw Dr. Morelos. She didn't think was how she wanted counseling to be. # Vitamin D deficiency (E55.9) - Vitamin D level is 29.6 ng/mL. A little improved. Missing doses with the move. - Advised to increase Vitamin D supplementation to 4000 IU daily. # Plantar fasciitis (M72.2) - Scheduled for plantar fasciitis surgery with Dr. Spaulding. - Noted will need to be non-weightbearing right after surgery. I spent a total of 60 minutes on the date of the service which included [id number] patient care, completing clinical documentation, obtaining and/or reviewing separately obtained history, performing a medically appropriate examination, counseling and educating the patient/family/caregiver, ordering medications, tests, or procedures, independently interpreting results (not separately reported), and communicating results to the patient/family/caregiver Aurora Macdonald MD Recording using [employer] software for draft documentation of the visit was discussed with the patient/authorized merchandiser retail representative; all questions welcomed and answered. Patient/authorized merchandiser retail representative agreed to proceed. documented in this encounter [facility] 09-05-2024 Telephone encounter Note I'm having a lot of back pain, please ask Dr Thurman about Ibuprofen Prescription Refill Information The patient has been identified by name and date of : Yes Caregiver verified no other encounters exist for this prescription request: Yes Caregiver confirmed with patient/requestor that no other refills are due, in the near future, with this provider at this time: Yes The last office visit in the department: 05/07/24 Does the patient have a future office visit with this provider/department: Yes 09/12/24 Requested Prescriptions Pending Prescriptions Disp Refills ibuprofen (MOTRIN) 800 mg tablet 30 tablet 1 Sig: Take 1 tablet by mouth every 8 hours as needed for pain. Divina Oh LPN September 05, 2024 7:[address] [facility] 09-05-2024 Miscellaneous Notes I'm having a lot of back pain, please ask Dr Thurman about Ibuprofen Prescription Refill Information The patient has been identified by name and date of : Yes Caregiver verified no other encounters exist for this prescription request: Yes Caregiver confirmed with patient/requestor that no other refills are due, in the near future, with this provider at this time: Yes The last office visit in the department: 05/07/24 Does the patient have a future office visit with this provider/department: Yes 09/12/24 Requested Prescriptions Pending Prescriptions Disp Refills ibuprofen (MOTRIN) 800 mg tablet 30 tablet 1 Sig: Take 1 tablet by mouth every 8 hours as needed for pain. Divina Oh LPN September 05, 2024 7:21 AM documented in this encounter [facility] 08-26-2024 Telephone encounter Note The following approved medication requests have been transmitted electronically. Requested Prescriptions Pending Prescriptions Disp Refills cyclobenzaprine (FLEXERIL) 10 mg tablet 30 tablet 2 Sig: Take 0.5-1 tablets by mouth two times a day as needed. Aurora Macdonald MD [facility] 08-26-2024 Miscellaneous Notes The following approved medication requests have been transmitted electronically. Requested Prescriptions Pending Prescriptions Disp Refills cyclobenzaprine (FLEXERIL) 10 mg tablet 30 tablet 2 Sig: Take 0.5-1 tablets by mouth two times a day as needed. Aurora Macdonald MD Patient has been identified by name and date of : Yes Patient phones for refill(s): Requested Prescriptions Pending Prescriptions Disp Refills cyclobenzaprine (FLEXERIL) 10 mg tablet 30 tablet 2 Sig: Take 0.5-1 tablets by mouth two times a day as needed. Date of last office visit in primary care: 05/07/2024 Date of next office visit in primary care: 09/12/2024 Please advise. Thank you. Cherelle Malin LPN. documented in this encounter [facility] 08-26-2024 Telephone encounter Note Patient has been identified by name and date of : Yes Patient phones for refill(s): Requested Prescriptions Pending Prescriptions Disp Refills cyclobenzaprine (FLEXERIL) 10 mg tablet 30 tablet 2 Sig: Take 0.5-1 tablets by mouth two times a day as needed. Date of last office visit in primary care: 05/07/2024 Date of next office visit in primary care: 09/12/2024 Please advise. Thank you. Cherelle Malin LPN. [facility] 08-21-2024 Telephone encounter Note Prescription Refill Information The patient has been identified by name and date of : Yes Caregiver verified no other encounters exist for this prescription request: Yes Caregiver confirmed with patient/requestor that no other refills are due, in the near future, with this provider at this time: Yes The last office visit in the department: 05/07/2024 Does the patient have a future office visit with this provider/department: Yes, 09/12/2024 Requested Prescriptions Pending Prescriptions Disp Refills flash glucose sensor (FREESTYLE DUSTY 2 SENSOR) kit 3 Kit 3 Sig: apply 1 SENSOR to back OF UPPER ARM REMOVE AND REPLACE every 14 days use with DEVICE to MONITOR BLOOD SUGAR ASHLEY Mooney August 21, 2024 9:[address] [facility] 08-21-2024 Miscellaneous Notes Prescription Refill Information The patient has been identified by name and date of : Yes Caregiver verified no other encounters exist for this prescription request: Yes Caregiver confirmed with patient/requestor that no other refills are due, in the near future, with this provider at this time: Yes The last office visit in the department: 05/07/2024 Does the patient have a future office visit with this provider/department: Yes, 09/12/2024 Requested Prescriptions Pending Prescriptions Disp Refills flash glucose sensor (FREESTYLE DUSTY 2 SENSOR) kit 3 Kit 3 Sig: apply 1 SENSOR to back OF UPPER ARM REMOVE AND REPLACE every 14 days use with DEVICE to MONITOR BLOOD SUGAR ASHLEY Mooney August 21, 2024 9:01 AM documented in this encounter [facility] 06-18-2024 Telephone encounter Note Order faxed to [phone] and patient was notified Katie Moran MA [facility] 06-18-2024 Miscellaneous Notes Order faxed to [phone] and patient was notified Katie Moran MA Patient calls to report that she needs a new order for PT for water walking sent to [facility]. Patient reports she was in to see provider in May 2024 and so much was discussed she doesn't recall if she requested the order at that time. The order from August of 2023 is no longer valid on their end. Pended previous order with the addition of left foot pain per patient request. Please fax order to [phone] Call patient at [phone] once provider reviews and advises. Pari Oliver RN documented in this encounter [facility] 06-13-2024 Telephone encounter Note Patient calls to report that she needs a new order for PT for water walking sent to [facility]. Patient reports she was in to see provider in May 2024 and so much was discussed she doesn't recall if she requested the order at that time. The order from August of 2023 is no longer valid on their end. Pended previous order with the addition of left foot pain per patient request. Please fax order to [phone] Call patient at [phone] once provider reviews and advises. Pari Oliver RN [facility] 05-23-2024 Telephone encounter Note The following approved medication requests have been transmitted electronically. Requested Prescriptions Pending Prescriptions Disp Refills nystatin (MYCOSTATIN) cream 60 g 2 Sig: Apply 1 application to affected area two times a day as needed. Aurora Macdonald MD [facility] 05-23-2024 Telephone encounter Note The following approved medication requests have been transmitted electronically. Requested Prescriptions Signed Prescriptions Disp Refills blood sugar diagnostic (BLOOD GLUCOSE TEST) test strip 200 Strip 5 Sig: Test blood sugar(s) 4 times daily. Dx: Type 2 DM - Uncontrolled E11.65 Insulin: Yes. One Touch Test strips. Authorizing Provider: AURORA MACDONALD MD [facility] 05-23-2024 Miscellaneous Notes The following approved medication requests have been transmitted electronically. Requested Prescriptions Pending Prescriptions Disp Refills nystatin (MYCOSTATIN) cream 60 g 2 Sig: Apply 1 application to affected area two times a day as needed. Aurora Macdonald MD Prescription Refill Information The patient has been identified by name and date of : Yes Caregiver verified no other encounters exist for this prescription request: Yes Caregiver confirmed with patient/requestor that no other refills are due, in the near future, with this provider at this time: Yes The last office visit in the department: 05/07/24 Does the patient have a future office visit with this provider/department: Yes 09/12/24 Requested Prescriptions Pending Prescriptions Disp Refills nystatin (MYCOSTATIN) cream 60 g 2 Sig: Apply 1 application to affected area two times a day as needed. Divina Oh LPN May 23, 2024 10:08 AM documented in this encounter [facility] 05-23-2024 Miscellaneous Notes The following approved medication requests have been transmitted electronically. Requested Prescriptions Signed Prescriptions Disp Refills blood sugar diagnostic (BLOOD GLUCOSE TEST) test strip 200 Strip 5 Sig: Test blood sugar(s) 4 times daily. Dx: Type 2 DM - Uncontrolled E11.65 Insulin: Yes. One Touch Test strips. Authorizing Provider: AURORA MACDONALD MD Prescription Refill Information The patient has been identified by name and date of : Yes Caregiver verified no other encounters exist for this prescription request: Yes Caregiver confirmed with patient/requestor that no other refills are due, in the near future, with this provider at this time: Yes The last office visit in the department: 05/07/24 Does the patient have a future office visit with this provider/department: Yes 09/12/24 Requested Prescriptions Pending Prescriptions Disp Refills blood sugar diagnostic (BLOOD GLUCOSE TEST) test strip 200 Strip 5 Sig: Test blood sugar(s) 4 times daily. Dx: Type 2 DM - Uncontrolled E11.65 Insulin: Yes. One Touch Test strips. Divina Oh LPN May 23, 2024 10:06 AM documented in this encounter [facility] 05-23-2024 Telephone encounter Note Prescription Refill Information The patient has been identified by name and date of : Yes Caregiver verified no other encounters exist for this prescription request: Yes Caregiver confirmed with patient/requestor that no other refills are due, in the near future, with this provider at this time: Yes The last office visit in the department: 05/07/24 Does the patient have a future office visit with this provider/department: Yes 09/12/24 Requested Prescriptions Pending Prescriptions Disp Refills nystatin (MYCOSTATIN) cream 60 g 2 Sig: Apply 1 application to affected area two times a day as needed. Divina Oh LPN May 23, 2024 10:[address] [facility] 05-23-2024 Telephone encounter Note Prescription Refill Information The patient has been identified by name and date of : Yes Caregiver verified no other encounters exist for this prescription request: Yes Caregiver confirmed with patient/requestor that no other refills are due, in the near future, with this provider at this time: Yes The last office visit in the department: 05/07/24 Does the patient have a future office visit with this provider/department: Yes 09/12/24 Requested Prescriptions Pending Prescriptions Disp Refills blood sugar diagnostic (BLOOD GLUCOSE TEST) test strip 200 Strip 5 Sig: Test blood sugar(s) 4 times daily. Dx: Type 2 DM - Uncontrolled E11.65 Insulin: Yes. One Touch Test strips. Divina Oh LPN May 23, 2024 10:[address] [facility] 05-07-2024 Instructions Aurora Macdonald MD - 05/07/2024 5:29 PM EST - Increase your magnesium intake to help with muscle spasms and constipation. You can take up to 500 mg daily, divided into two doses if needed. - Continue using your massager to alleviate muscle spasms and tightness. - Avoid activities that require raising your arms above your head to prevent flare-ups of pain between your shoulder blades. - Take Tramadol as needed for acute flare-ups of pain. Take it with food to minimize nausea. - Apply moist heat to areas of muscle tightness to help relax the muscles. - Attend your scheduled appointment on May 22 at 3:00 pm for further evaluation of your musculoskeletal issues. - Follow a diet that includes one cup of food every three hours, focusing on protein and vegetables. Limit carbs and sugars to help with weight loss. - Start with chair exercises and gradually increase your activity level to improve your metabolism and aid in weight loss. - Monitor your blood sugar levels regularly and report any changes or concerns. - Complete your lab tests, including vitamin D, comprehensive metabolic panel, blood counts, magnesium, and A1c, as scheduled. - Follow up with sleep medicine for evaluation of your CPAP-related headaches. A consult has been placed for you. - Follow up with endocrinology for evaluation of potential neuropathy and diabetes management. A consult has been placed for you. documented in this encounter [facility] 05-07-2024 Note HNO ID: [id number] Author: AURORA MACDONALD MD Service: ? Author Type: Physician Type: Progress Notes Filed: 06/05/2024 23:34 Note Text: This note was created using Mind[employer]. Subjective Malathi Zambrano is a 54 year old female. No chief complaint on file. SUBJECTIVE: Malathi Zambrano is a 54 year old year old lady here today for 4 month follow up appointment for review of medical conditions. Malathi Zambrano is a 54-year-old female with a history of DM, presenting for follow-up. Malathi reports a recent onset of severe pain between the shoulder blades after raising her arms above her head for the past few days. She describes the pain as excruciating and notes that it feels like something's disconnected. She also experiences muscle spasms throughout her body, which began in her late 20s and have been constant since. She has been using a massager to alleviate the spasms, which has provided some relief. She is currently taking magnesium and vitamin D supplements. She also reports constipation. Two months ago, she visited the ER due to an inability to move her neck up or down and severe pain in her shoulder. She was evaluated for a lumbar puncture but declined the procedure. She was prescribed tramadol, which helped with the pain but caused dizziness and mild fatigue. She still has approximately 10 pills remaining. She also used a massager to alleviate the pain, which provided significant relief. She has a history of chiropractic adjustments for pelvic and neck issues, but her chiropractor retired 12 years ago. Malathi also reports severe headaches associated with her CPAP use. She describes the headaches as starting above her ears and feeling like her head is in a vice. She has tried multiple CPAP masks and adjustments without relief. She is a mouth breather and has not tried nasal pillows. She wears her CPAP from the moment she gets into bed due to difficulty breathing while lying down. She reports that the headgear wears out quickly and she has had issues with her supplier, [employer], in getting replacements. Malathi also reports numbness in her toes and fingers, as well as intense itching, which she suspects may be early-stage neuropathy. Her last A1c was 7.8. She has been experiencing pain in her left foot due to plantar fasciitis and a bone spur, for which she received a cortisone injection a couple of months ago. She is concerned that her A1c may have increased. Malathi is also interested in weight loss options and has tried Ozempic in the past. She is considering bariatric surgery and is seeking guidance on diet and exercise. She has difficulty exercising due to pain and is looking for alternative options. She is also interested in consulting with an injection molding supervisor for her diabetes management and for her son, who is also diabetic. PAST MEDICAL HISTORY Diagnosis Date Abdominal pain, left upper quadrant Abdominal pain, unspecified site Acquired spondylolisthesis 07/25/2010 Acute gastritis without mention of hemorrhage Arthritis Asthma Calcaneal spur 10/15/2009 COPD (chronic obstructive pulmonary disease) ([facility]) Cough DEPRESSIVE DISORDER NEC 06/15/2007 Depressive disorder, not elsewhere classified Diabetes mellitus without mention of complication Diabetes mellitus Diabetes mellitus without mention of complication Diabetes mellitus type 2 Displacement of lumbar intervertebral disc without myelopathy 12/30/2009 Esophageal reflux 10/01/2006 Esophagitis, unspecified Fibromyalgia 07/25/2010 Generalized anxiety disorder Anxiety, Generalized Hemorrhage of gastrointestinal tract, unspecified Hypertension Internal hemorrhoids without mention of complication Left carpal tunnel syndrome 09/11/2013 Lumbago 08/05/2008 Migraine 03/02/2009 Mixed stress and urge urinary incontinence Myalgia and myositis, unspecified Obesity, unspecified Obesity ZHAO (obstructive sleep apnea) 05/01/2011 uses C-PAP PMH - PAST MEDICAL HISTORY OF allergic syndrome; gets allergy shots PMH - PAST MEDICAL HISTORY OF bipolar Psoriasis and similar disorders Sleep apnea Spondylolysis, 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 Grissom saw in the past Vitamin D deficiency 11/29/2010 on calcitriol Current Outpatient Medications Medication Sig atenolol (TENORMIN) 25 mg tablet Take 1 tablet by mouth once daily. As directed Cane Use as directed for help with balance Cholecalciferol, Vitamin D3, 125 mcg (5,000 unit) cap Take 1 capsule by mouth once daily. DULoxetine (CYMBALTA) 30 mg capsule Take 1 capsule by mouth once daily. montelukast (SINGULAIR) 10 mg tablet Take 1 tablet by mouth daily at bedtime. omeprazole (PRILOSEC) 20 mg capsule Take 1 capsule by mouth daily before breakfast. 1/2 hr before meal. As directed. insulin aspart U-100 (NOVOLOG FLEXP (more content not included)... [facility] 05-07-2024 History of Present illness Narrative This note was created using Mindjet. Subjective Malathi Zambrano is a 54 year old female. No chief complaint on file. SUBJECTIVE: Malathi Zambrano is a 54 year old year old lady here today for 4 month follow up appointment for review of medical conditions. Malathi Zambrano is a 54-year-old female with a history of DM, presenting for follow-up. Malathi reports a recent onset of severe pain between the shoulder blades after raising her arms above her head for the past few days. She describes the pain as excruciating and notes that it feels like something's disconnected. She also experiences muscle spasms throughout her body, which began in her late 20s and have been constant since. She has been using a massager to alleviate the spasms, which has provided some relief. She is currently taking magnesium and vitamin D supplements. She also reports constipation. Two months ago, she visited the ER due to an inability to move her neck up or down and severe pain in her shoulder. She was evaluated for a lumbar puncture but declined the procedure. She was prescribed tramadol, which helped with the pain but caused dizziness and mild fatigue. She still has approximately 10 pills remaining. She also used a massager to alleviate the pain, which provided significant relief. She has a history of chiropractic adjustments for pelvic and neck issues, but her chiropractor retired 12 years ago. Malathi also reports severe headaches associated with her CPAP use. She describes the headaches as starting above her ears and feeling like her head is in a vice. She has tried multiple CPAP masks and adjustments without relief. She is a mouth breather and has not tried nasal pillows. She wears her CPAP from the moment she gets into bed due to difficulty breathing while lying down. She reports that the headgear wears out quickly and she has had issues with her supplier, [employer], in getting replacements. Malathi also reports numbness in her toes and fingers, as well as intense itching, which she suspects may be early-stage neuropathy. Her last A1c was 7.8. She has been experiencing pain in her left foot due to plantar fasciitis and a bone spur, for which she received a cortisone injection a couple of months ago. She is concerned that her A1c may have increased. Malathi is also interested in weight loss options and has tried Ozempic in the past. She is considering bariatric surgery and is seeking guidance on diet and exercise. She has difficulty exercising due to pain and is looking for alternative options. She is also interested in consulting with an injection molding supervisor for her diabetes management and for her son, who is also diabetic. PAST MEDICAL HISTORY Diagnosis Date Abdominal pain, left upper quadrant Abdominal pain, unspecified site Acquired spondylolisthesis 07/25/2010 Acute gastritis without mention of hemorrhage Arthritis Asthma Calcaneal spur 10/15/2009 COPD (chronic obstructive pulmonary disease) (HCC) Cough DEPRESSIVE DISORDER NEC 06/15/2007 Depressive disorder, not elsewhere classified Diabetes mellitus without mention of complication Diabetes mellitus Diabetes mellitus without mention of complication Diabetes mellitus type 2 Displacement of lumbar intervertebral disc without myelopathy 12/30/2009 Esophageal reflux 10/01/2006 Esophagitis, unspecified Fibromyalgia 07/25/2010 Generalized anxiety disorder Anxiety, Generalized Hemorrhage of gastrointestinal tract, unspecified Hypertension Internal hemorrhoids without mention of complication Left carpal tunnel syndrome 09/11/2013 Lumbago 08/05/2008 Migraine 03/02/2009 Mixed stress and urge urinary incontinence Myalgia and myositis, unspecified Obesity, unspecified Obesity ZHAO (obstructive sleep apnea) 05/01/2011 uses C-PAP PMH - PAST MEDICAL HISTORY OF allergic syndrome; gets allergy shots PMH - PAST MEDICAL HISTORY OF bipolar Psoriasis and similar disorders Sleep apnea Spondylolysis, 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 Grissom saw in the past Vitamin D deficiency 11/29/2010 on calcitriol Current Outpatient Medications Medication Sig atenolol (TENORMIN) 25 mg tablet Take 1 tablet by mouth once daily. As directed Cane Use as directed for help with balance Cholecalciferol, Vitamin D3, 125 mcg (5,000 unit) cap Take 1 capsule by mouth once daily. DULoxetine (CYMBALTA) 30 mg capsule Take 1 capsule by mouth once daily. montelukast (SINGULAIR) 10 mg tablet Take 1 tablet by mouth daily at bedtime. omeprazole (PRILOSEC) 20 mg capsule Take 1 capsule by mouth daily before breakfast. 1/2 hr before meal. As directed. insulin aspart U-100 (NOVOLOG FLEXPEN U-100 INSULIN) 100 unit/mL (3 mL) WITH FIRST BITE OF FOOD, 30 UNITS W/BREAKFAST, 30 UNITS W/LUNCH, 30 UNITS W/DINNER; MAY ADJUST WITH SLIDING SCALE GIVEN HIGH BLOOD SUGAR. Max dose 105 units per day insulin glargine (LANTUS SOLOSTAR U-100 INSULIN) 100 unit/mL (3 mL) Inject 120 Units subcutaneously daily at bedtime. Please dispense 15 pens (3 boxes at a time). Blood-Glucose Meter,Continuous (DEXCOM G7 BINDERY MACHINE TENDER) mis Use to check blood sugar at least four (4) times daily. Blood-Glucose Sensor (DEXCOM G7 SENSOR) franklin Apply new sensor every ten (10) days. flash glucose sensor (FREESTYLE DUSTY 2 SENSOR) kit apply 1 SENSOR to back OF UPPER ARM REMOVE AND REPLACE every 14 days use with DEVICE to MONITOR BLOOD SUGAR Insulin [place], Disposable, (BD INSULIN PEN NEEDLE UF) 29 gauge x 1/2 Use 1 Needle For Each Dose 3-4 Times Daily With Novolog Pen For Meals and At Bedtime if Needed fluticasone (FLOVENT HFA) 220 mcg/actuation inhaler Inhale 2 Puffs as instructed two times a day. flaxseed oil (OMEGA 3 ORAL) Take by mouth. blood sugar diagnostic (BLOOD GLUCOSE TEST) test strip Test blood sugar(s) 4 times daily. Dx: Type 2 DM - Uncontrolled E11.65 Insulin: Yes Blood-Glucose Meter (FREESTYLE LITE METER) monitoring kit Check blood sugars as directed for controlled Type 2 DM without complication CPAP ContinueAPAP @ 13-20 cm of water with humidification. Mask (per patient preference) optional chin strap (if indicated) , filters, tubing, humidifier and lifetime supplies. EPR set at 3. (G47.33) ZHAO (obstructive sleep apnea). Needs new mask at least every 3 months and needs new mask now since current one is leaking. Also needs new headgear now since current one is loose. albuterol HFA (VENTOLIN HFA) 90 mcg/actuation inhaler Inhale 2 Puffs as instructed every 4 hours as needed for wheezing/shortness of breath. albuterol (PROVENTIL) 2.5 mg /3 mL (0.083 %) nebulizer solution Use 3 mL via nebulizer every 4 hours as needed for wheezing/shortness of breath. Use over 5-15minutes. cyclobenzaprine (FLEXERIL) 10 mg tablet Take 0.5-1 tablets by mouth twice daily as needed. hydroCHLOROthiazide (HYDRODIURIL, ESIDRIX) 25 mg tablet Take 1 tablet by mouth once daily. As needed for swelling from fluid retention nystatin (MYCOSTATIN) cream Apply 1 application to affected area twice daily as needed. fluconazole (DIFLUCAN) 150 mg tablet Take by mouth. Take at onset of yeast infection. Repeat after 5 to 7 days if ongoing symptoms. May treat recurrent episodes as needed. flash glucose scanning reader (PayClip DUSTY 2 READER) Check glucose 4 times a day or more as directed. Dx: ICD10: E11.40, Z79.4. Insulin: Yes. omega-3/dha/epa/dpa/fish oil (OMEGA-3 2100 ORAL) Take 1 tablet by mouth twice daily. ascorbic acid (VITAMIN C ORAL) Take 3,000 Units by mouth once daily. mupirocin (BACTROBAN) 2 % ointment Apply 1 application to affected area three times daily. Location: torso wounds as directed till healed COMPOUNDED PRESCRIPTION CPAP supplies--mask per patient preference, tubing, humidifier as needed. G47.33, Z99.89 ZHAO on CPAP Incontinence Pad, Liner, Disp pads Change pad 3 to 5 times daily. N39.46 Lancets (FREESTYLE LANCETS) lancets tests sugar 4 to 6 times daily DX:250.02 Insulin dependent (this is corrected RX) mecobalamin (B12 ACTIVE ORAL) Take by mouth. tiZANidine (ZANAFLEX) 4 mg tablet Take 1 tablet by mouth every 8 hours as needed (muscle spasms). COMPOUNDED PRESCRIPTION Bilateral compression Knee Hi 20-30 mm. ICD 10; 459.81; 782.3 Compression Knee Highs KNEE HIGH COMPRESSION STOCKINGS 30-40 MM. DX: (I87.8/459.81) Venous stasis (R60.0782.3) Bilateral edema of lower extremity Current Facility-Administered Medications Medication Dose Route Frequency perflutren lipid microspheres 1.3 mL in NaCl (PF) 0.9% 10 mL injection (DEFINITY) INTRAVENOUS DIRECTED PRN sodium chloride 0.9 % (flush) 10 mL (BD POSIFLUSH) 10 mL INTRAVENOUS DIRECTED PRN Review of Systems Objective BP 109/70 Pulse 83 Temp 36.7 C (98.1 F) Resp 16 Wt 134 kg (295 lb 6.7 oz) LMP 11/28/2020 (LMP Unknown) SpO2 96% BMI 54.03 kg/m Last 5 Encounter Wt Readings: Date: Wt: 05/07/2024 134 kg (295 lb 6.7 oz) 01/11/2024 130.8 kg (288 lb 5.8 oz) 08/28/2023 133.4 kg (294 lb) 06/13/2023 129.7 kg (286 lb) 04/27/2023 130.6 kg (288 lb) No waist measurement recorded Estimated body mass index is 54.03 kg/m as calculated from the following: Height as of 08/28/23: 157.5 cm (5' 2). Weight as of this encounter: 134 kg (295 lb 6.7 oz). Last 5 Encounter BP Readings: Date: BP: 05/07/2024 109/70 01/11/2024 118/72 08/28/2023 124/82 06/13/2023 112/62 04/27/2023 110/68 Physical Exam Constitutional: Appearance: Normal appearance. She is obese. Eyes: Conjunctiva/sclera: Conjunctivae normal. Pulmonary: Effort: Pulmonary effort is normal. Neurological: Mental Status: She is alert. Psychiatric: Mood and Affect: Mood normal. Behavior: Behavior normal. Thought Content: Thought content normal. Judgment: Judgment normal. Hemoglobin A1C (%) Date Value 11/01/2023 7.8 02/09/2023 7.5 09/07/2022 7.6 11/29/2021 7.3 06/20/2021 8.2 10/19/2020 7.0 07/23/2020 7.3 06/05/2019 7.9 06/18/2018 6.6 Assessment and Plan # ZHAO (obstructive sleep apnea) (G47.33) - Experiencing severe headaches attributed to CPAP mask pressure; multiple mask adjustments and changes have been attempted without relief. - Referred to sleep medicine for further evaluation and management; consult placed with Dr. Rodrigez or Merissa York. # Episodic tension-type headache, not intractable (G44.219) # Neck pain, musculoskeletal (M54.2) # Muscle spasm of back (M62.830) # Muscle spasm (M62.838) - Recent ER visit for severe neck pain and limited ROM; CT and CTA showed no signs of intracranial hemorrhage, infarcts, or aneurysms. - Currently using tramadol 50 mg prn for pain management; advised to take with food to minimize nausea. - Utilizing a massager for muscle spasms; recommended continuation of warm compresses and massage therapy. - Scheduled for osteopathic evaluation on May 22 at 1500 to assess musculoskeletal alignment and provide further treatment recommendations. # Type 2 diabetes mellitus with diabetic neuropathy, with long-term current use of insulin (HCC) (E11.40) - Experiencing numbness in toes and fingers, possibly indicative of diabetic neuropathy. - Last A1c was 7.8%; lab orders for A1c, vitamin D, CMP, CBC, and magnesium extended for another month. - Referred to endocrinology for comprehensive diabetes management and neuropathy evaluation; consult placed with Dr. Grady. # Plantar fasciitis of left foot (M72.2) - Previous cortisone injection provided temporary relief; pain likely due to plantar fasciitis and associated bone spur. - Continue use of supportive footwear and consider orthotic inserts to alleviate pressure on the plantar fascia. # Drug-induced constipation (K59.03) - Constipation likely secondary to magnesium supplementation and tramadol use. - Advised to increase magnesium dosage gradually, starting with 200 mg twice daily, and titrate up to 500 mg daily as tolerated. - Monitor for any signs of hypermagnesemia; follow-up labs to assess magnesium levels. # Essential (primary) hypertension (I10) - Blood pressure management ongoing; continue current antihypertensive regimen. - Monitor blood pressure regularly and report any significant changes. Aurora Macdonald MD documented in this encounter [facility] 01-12-2024 Instructions Aurora Macdonald MD - 01/12/2024 12:12 AM EDT -Consider using compression stockings to help with swelling and discoloration in your feet. Look for stretchy, well-fitted options, possibly in the men's section or sports brands like Nike or [employer]. - Continue to monitor your feet for any changes in color or swelling. - Keep a log of any episodes where your CPAP machine shuts off, noting the date and any details. This information can be helpful for troubleshooting the machine settings. - Continue using your CPAP machine as prescribed and report any issues to your healthcare provider. - Consider using Miralax in the morning and Metamucil at night to help with bowel movements and reduce bloating. - Discuss any concerns about your CPAP machine with your healthcare provider or the supplier to ensure it is functioning correctly. Keep log of episodes so can compare to report for CPAP. documented in this encounter [facility] 01-12-2024 Telephone encounter Note See MyChart reply [facility] 01-12-2024 Miscellaneous Notes See MyChart reply documented in this encounter [facility] 01-11-2024 Note HNO ID: [id number] Author: AURORA MACDONALD MD Service: ? Author Type: Physician Type: Progress Notes Filed: 01/12/2024 00:16 Note Text: This note was created using [email or web address]. Subjective Mlaathi Zambrano is a 53 year old female. Patient presents with: F/U 4 month SUBJECTIVE: Malathi Zambrano is a 53 year old year old lady here today for 4 month follow up appointment for review of medical conditions. Controlled type 2 diabetes mellitus without complication, with long-term current use of insulin (HCC): - Patient uses a CGM and insulin for management. - Discussed potential switch to Dexcom G7 for better adhesive properties and smaller size compared to current Freestyle Dusty 2. - Continue current insulin regimen and monitor blood glucose levels. Class 3 severe obesity due to excess calories with body mass index (BMI) of 50.0 to 59.9 in adult, unspecified whether serious comorbidity present (HCC): - Patient's weight has decreased since the last visit. - Encouraged continuation of current dietary habits, focusing on vegetable intake and reduced carbohydrate consumption. - Discussed the importance of regular physical activity as tolerated. Primary osteoarthritis of right knee: - Chronic, managed with current treatment. - Discussed importance of weight management and physical therapy to reduce strain on the knee. Abnormal mammogram: - Patient had an abnormal mammogram requiring further imaging. - Ordered a diagnostic ultrasound of the left breast to further investigate the findings. Palpitations: - Patient experiences chest pains and palpitations, potentially related to CPAP use. - Advised patient to keep a log of episodes to correlate with CPAP use data. - Monitor symptoms and consider further evaluation if episodes increase in frequency or severity. Essential hypertension: - Chronic, managed with current treatment. - Continue monitoring blood pressure and adherence to medication regimen. Vitamin D deficiency: - Patient takes 5,000 units of vitamin D daily. - No changes recommended at this time. Tachycardia: - Patient experiences episodes of tachycardia, potentially related to CPAP use. - Advised patient to keep a log of episodes to correlate with CPAP use data. - Monitor symptoms and consider further evaluation if episodes increase in frequency or severity. Displacement of lumbar intervertebral disc without myelopathy: - Chronic, managed with current treatment. - Discussed importance of maintaining proper posture and avoiding activities that may exacerbate symptoms. Spondylolysis, lumbosacral: - Chronic, managed with current treatment. - Discussed importance of maintaining proper posture and avoiding activities that may exacerbate symptoms. Lumbago: - Chronic, managed with current treatment. - Discussed importance of maintaining proper posture and avoiding activities that may exacerbate symptoms. Left foot pain: - Chronic, managed with current treatment. - Discussed importance of wearing appropriate footwear and considering orthotic devices to alleviate pain. Encounter for long-term current use of medication: - Patient is on multiple long-term medications for various chronic conditions. - Reviewed medication list and made necessary adjustments to ensure optimal management of conditions. PAST MEDICAL HISTORY No date: Abdominal pain, left upper quadrant No date: Abdominal pain, unspecified site 07/25/2010: Acquired spondylolisthesis No date: Acute gastritis without mention of hemorrhage No date: Arthritis No date: Asthma 10/15/2009: Calcaneal spur No date: COPD (chronic obstructive pulmonary disease) (HCC) No date: Cough 06/15/2007: DEPRESSIVE DISORDER NEC No date: Depressive disorder, not elsewhere classified No date: Diabetes mellitus without mention of complication Comment: Diabetes mellitus No date: Diabetes mellitus without mention of complication Comment: Diabetes mellitus type 2 12/30/2009: Displacement of lumbar intervertebral disc without myelopathy 10/01/2006: Esophageal reflux No date: Esophagitis, unspecified 07/25/2010: Fibromyalgia No date: Generalized anxiety disorder Comment: Anxiety, Generalized No date: Hemorrhage of gastrointestinal tract, unspecified No date: Hypertension No date: Internal hemorrhoids without mention of complication 09/11/2013: Left carpal tunnel syndrome 08/05/2008: Lumbago 03/02/2009: Migraine No date: Mixed stress and urge urinary incontinence No date: Myalgia and myositis, unspecified No date: Obesity, unspecified Comment: Obesity 05/01/2011: ZHAO (obstructive sleep apnea) Comment: uses C-PAP No date: PMH - PAST MEDICAL HISTORY OF Comment: allergic syndrome; gets allergy shots No date: PMH - PAST MEDICAL HISTORY OF Comment: bipolar No date: Psoriasis and similar disorders No date: Sleep apnea 07/25/2010: Spondylolysis, lumbosacral 02/05 (more content not included)... [facility] 01-11-2024 History of Present illness Narrative This note was created using [email or web address]. Subjective Malathi Zambrano is a 53 year old female. Patient presents with: F/U 4 month SUBJECTIVE: Malathi Zambrano is a 53 year old year old lady here today for 4 month follow up appointment for review of medical conditions. Controlled type 2 diabetes mellitus without complication, with long-term current use of insulin ([facility]): - Patient uses a CGM and insulin for management. - Discussed potential switch to Dexcom G7 for better adhesive properties and smaller size compared to current Freestyle Dusty 2. - Continue current insulin regimen and monitor blood glucose levels. Class 3 severe obesity due to excess calories with body mass index (BMI) of 50.0 to 59.9 in adult, unspecified whether serious comorbidity present ([facility]): - Patient's weight has decreased since the last visit. - Encouraged continuation of current dietary habits, focusing on vegetable intake and reduced carbohydrate consumption. - Discussed the importance of regular physical activity as tolerated. Primary osteoarthritis of right knee: - Chronic, managed with current treatment. - Discussed importance of weight management and physical therapy to reduce strain on the knee. Abnormal mammogram: - Patient had an abnormal mammogram requiring further imaging. - Ordered a diagnostic ultrasound of the left breast to further investigate the findings. Palpitations: - Patient experiences chest pains and palpitations, potentially related to CPAP use. - Advised patient to keep a log of episodes to correlate with CPAP use data. - Monitor symptoms and consider further evaluation if episodes increase in frequency or severity. Essential hypertension: - Chronic, managed with current treatment. - Continue monitoring blood pressure and adherence to medication regimen. Vitamin D deficiency: - Patient takes 5,000 units of vitamin D daily. - No changes recommended at this time. Tachycardia: - Patient experiences episodes of tachycardia, potentially related to CPAP use. - Advised patient to keep a log of episodes to correlate with CPAP use data. - Monitor symptoms and consider further evaluation if episodes increase in frequency or severity. Displacement of lumbar intervertebral disc without myelopathy: - Chronic, managed with current treatment. - Discussed importance of maintaining proper posture and avoiding activities that may exacerbate symptoms. Spondylolysis, lumbosacral: - Chronic, managed with current treatment. - Discussed importance of maintaining proper posture and avoiding activities that may exacerbate symptoms. Lumbago: - Chronic, managed with current treatment. - Discussed importance of maintaining proper posture and avoiding activities that may exacerbate symptoms. Left foot pain: - Chronic, managed with current treatment. - Discussed importance of wearing appropriate footwear and considering orthotic devices to alleviate pain. Encounter for long-term current use of medication: - Patient is on multiple long-term medications for various chronic conditions. - Reviewed medication list and made necessary adjustments to ensure optimal management of conditions. PAST MEDICAL HISTORY No date: Abdominal pain, left upper quadrant No date: Abdominal pain, unspecified site 07/25/2010: Acquired spondylolisthesis No date: Acute gastritis without mention of hemorrhage No date: Arthritis No date: Asthma 10/15/2009: Calcaneal spur No date: COPD (chronic obstructive pulmonary disease) ([facility]) No date: Cough 06/15/2007: DEPRESSIVE DISORDER NEC No date: Depressive disorder, not elsewhere classified No date: Diabetes mellitus without mention of complication Comment: Diabetes mellitus No date: Diabetes mellitus without mention of complication Comment: Diabetes mellitus type 2 12/30/2009: Displacement of lumbar intervertebral disc without myelopathy 10/01/2006: Esophageal reflux No date: Esophagitis, unspecified 07/25/2010: Fibromyalgia No date: Generalized anxiety disorder Comment: Anxiety, Generalized No date: Hemorrhage of gastrointestinal tract, unspecified No date: Hypertension No date: Internal hemorrhoids without mention of complication 09/11/2013: Left carpal tunnel syndrome 08/05/2008: Lumbago 03/02/2009: Migraine No date: Mixed stress and urge urinary incontinence No date: Myalgia and myositis, unspecified No date: Obesity, unspecified Comment: Obesity 05/01/2011: ZHAO (obstructive sleep apnea) Comment: uses C-PAP No date: PMH - PAST MEDICAL HISTORY OF Comment: allergic syndrome; gets allergy shots No date: PMH - PAST MEDICAL HISTORY OF Comment: bipolar No date: Psoriasis and similar disorders No date: Sleep apnea 07/25/2010: Spondylolysis, lumbosacral 02/05/2015: Tubular adenoma of colon Comment: Colonoscopy and EGD at [facility] No date: Unspecified asthma(493.90) Comment: Dr. Grissom saw in the past 11/29/2010: Vitamin D deficiency Comment: on calcitriol Current Outpatient Medications Medication Sig flash glucose sensor (FREESTYLE DUSTY 2 SENSOR) kit apply 1 SENSOR to back OF UPPER ARM REMOVE AND REPLACE every 14 days use with DEVICE to MONITOR BLOOD SUGAR Insulin [place], Disposable, (BD INSULIN PEN NEEDLE UF) 29 gauge x 1/2 Use 1 Needle For Each Dose 3-4 Times Daily With Novolog Pen For Meals and At Bedtime if Needed fluticasone (FLOVENT HFA) 220 mcg/actuation inhaler Inhale 2 Puffs as instructed two times a day. flaxseed oil (OMEGA 3 ORAL) Take by mouth. blood sugar diagnostic (BLOOD GLUCOSE TEST) test strip Test blood sugar(s) 4 times daily. Dx: Type 2 DM - Uncontrolled E11.65 Insulin: Yes Blood-Glucose Meter (FREESTYLE LITE METER) monitoring kit Check blood sugars as directed for controlled Type 2 DM without complication CPAP ContinueAPAP @ 13-20 cm of water with humidification. Mask (per patient preference) optional chin strap (if indicated) , filters, tubing, humidifier and lifetime supplies. EPR set at 3. (G47.33) ZHAO (obstructive sleep apnea). Needs new mask at least every 3 months and needs new mask now since current one is leaking. Also needs new headgear now since current one is loose. cyclobenzaprine (FLEXERIL) 10 mg tablet Take 0.5-1 tablets by mouth twice daily as needed. hydroCHLOROthiazide (HYDRODIURIL, ESIDRIX) 25 mg tablet Take 1 tablet by mouth once daily. As needed for swelling from fluid retention nystatin (MYCOSTATIN) cream Apply 1 application to affected area twice daily as needed. fluconazole (DIFLUCAN) 150 mg tablet Take by mouth. Take at onset of yeast infection. Repeat after 5 to 7 days if ongoing symptoms. May treat recurrent episodes as needed. flash glucose scanning reader (iCrimefighterYLE DUSTY 2 READER) Check glucose 4 times a day or more as directed. Dx: ICD10: E11.40, Z79.4. Insulin: Yes. omega-3/dha/epa/dpa/fish oil (OMEGA-3 2100 ORAL) Take 1 tablet by mouth twice daily. ascorbic acid (VITAMIN C ORAL) Take 3,000 Units by mouth once daily. mupirocin (BACTROBAN) 2 % ointment Apply 1 application to affected area three times daily. Location: torso wounds as directed till healed COMPOUNDED PRESCRIPTION CPAP supplies--mask per patient preference, tubing, humidifier as needed. G47.33, Z99.89 ZHAO on CPAP Incontinence Pad, Liner, Disp pads Change pad 3 to 5 times daily. N39.46 Lancets (FREESTYLE LANCETS) lancets tests sugar 4 to 6 times daily DX:250.02 Insulin dependent (this is corrected RX) atenolol (TENORMIN) 25 mg tablet Take 1 tablet by mouth once daily. As directed Cane Use as directed for help with balance Cholecalciferol, Vitamin D3, 125 mcg (5,000 unit) cap Take 1 capsule by mouth once daily. DULoxetine (CYMBALTA) 30 mg capsule Take 1 capsule by mouth once daily. montelukast (SINGULAIR) 10 mg tablet Take 1 tablet by mouth daily at bedtime. omeprazole (PRILOSEC) 20 mg capsule Take 1 capsule by mouth daily before breakfast. 1/2 hr before meal. As directed. insulin aspart U-100 (NOVOLOG FLEXPEN U-100 INSULIN) 100 unit/mL (3 mL) WITH FIRST BITE OF FOOD, 30 UNITS W/BREAKFAST, 30 UNITS W/LUNCH, 30 UNITS W/DINNER; MAY ADJUST WITH SLIDING SCALE GIVEN HIGH BLOOD SUGAR. Max dose 105 units per day insulin glargine (LANTUS SOLOSTAR U-100 INSULIN) 100 unit/mL (3 mL) Inject 120 Units subcutaneously daily at bedtime. Please dispense 15 pens (3 boxes at a time). mecobalamin (B12 ACTIVE ORAL) Take by mouth. tiZANidine (ZANAFLEX) 4 mg tablet Take 1 tablet by mouth every 8 hours as needed (muscle spasms). albuterol HFA (VENTOLIN HFA) 90 mcg/actuation inhaler Inhale 2 Puffs as instructed every 4 hours as needed for wheezing/shortness of breath. albuterol (PROVENTIL) 2.5 mg /3 mL (0.083 %) nebulizer solution Use 3 mL via nebulizer every 4 hours as needed for wheezing/shortness of breath. Use over 5-15minutes. COMPOUNDED PRESCRIPTION Bilateral compression Knee Hi 20-30 mm. ICD 10; 459.81; 782.3 Compression Knee Highs KNEE HIGH COMPRESSION STOCKINGS 30-40 MM. DX: (I87.8/459.81) Venous stasis (R60.0782.3) Bilateral edema of lower extremity Current Facility-Administered Medications Medication Dose Route Frequency perflutren lipid microspheres 1.3 mL in NaCl (PF) 0.9% 10 mL injection (DEFINITY) INTRAVENOUS DIRECTED PRN sodium chloride 0.9 % (flush) 10 mL (BD POSIFLUSH) 10 mL INTRAVENOUS DIRECTED PRN Review of Systems Objective BP 118/72 Pulse 79 Temp 36.7 C (98.1 F) Resp 16 Wt 130.8 kg (288 lb 5.8 oz) LMP 11/28/2020 (LMP Unknown) SpO2 97% BMI 52.74 kg/m Last 5 Encounter Wt Readings: Date: Wt: 01/11/2024 130.8 kg (288 lb 5.8 oz) 08/28/2023 133.4 kg (294 lb) 06/13/2023 129.7 kg (286 lb) 04/27/2023 130.6 kg (288 lb) 02/09/2023 130.1 kg (286 lb 12.8 oz) No waist measurement recorded Estimated body mass index is 52.74 kg/m as calculated from the following: Height as of 08/28/23: 157.5 cm (5' 2). Weight as of this encounter: 130.8 kg (288 lb 5.8 oz). Last 5 Encounter BP Readings: Date: BP: 01/11/2024 118/72 08/28/2023 124/82 06/13/2023 112/62 04/27/2023 110/68 02/09/2023 128/72 Physical Exam Constitutional: Appearance: Normal appearance. HENT: Head: Normocephalic. Eyes: Conjunctiva/sclera: Conjunctivae normal. Cardiovascular: Rate and Rhythm: Normal rate and regular rhythm. Heart sounds: Normal heart sounds. Pulmonary: Effort: Pulmonary effort is normal. Breath sounds: Normal breath sounds. Musculoskeletal: Right lower leg: Edema (trace) present. Left lower le+ Edema present. Skin: General: Skin is warm and dry. Neurological: General: No focal deficit present. Mental Status: She is alert and oriented to person, place, and time. Psychiatric: Mood and Affect: Mood normal. Behavior: Behavior normal. Thought Content: Thought content normal. Judgment: Judgment normal. Latest Ref Rng 09/07/2022 11/29/2022 02/09/2023 11/01/2023 11/16/2023 WBC 3.70 - 11.00 k/uL 9.30 8.79 9.89 RBC 3.90 - 5.20 m/uL 4.70 4.78 4.82 Hemoglobin 11.5 - 15.5 g/dL 14.4 14.3 14.5 Hematocrit 36.0 - 46.0 % 42.3 44.5 44.1 MCV 80.0 - 100.0 fL 90.0 93.1 91.5 MCH 26.0 - 34.0 pg 30.6 29.9 30.1 MCHC 30.5 - 36.0 g/dL 34.0 32.1 32.9 RDW-CV 11.5 - 15.0 % 13.2 13.2 13.4 Platelet Count 150 - 400 k/uL 240 257 254 MPV 9.0 - 12.7 fL 9.1 9.2 9.4 Neut% % 71.3 69.6 Abs Neut (ANC) 1.45 - 7.50 k/uL 6.63 6.13 Lymph% % 19.5 20.3 Abs Lymph 1.00 - 4.00 k/uL 1.81 1.78 [place]% % 6.9 7.6 Abs [place] <0.87 k/uL 0.64 0.67 Eosin% % 1.6 1.4 Abs Eosin <0.46 k/uL 0.15 0.12 Baso% % 0.3 0.5 Abs Baso <0.11 k/uL 0.03 0.04 Immature Gran % % 0.4 0.6 IMMATURE GRANS (ABS) <0.10 k/uL 0.04 0.05 NRBC /100 WBC 0.0 0.0 Absolute nRBC <0.01 k/uL <0.01 <0.01 <0.01 DTYPE Auto Auto Protein, Total 6.3 - 8.0 g/dL 7.8 7.1 7.5 Albumin 3.9 - 4.9 g/dL 4.2 4.1 4.2 Calcium 8.5 - 10.2 mg/dL 9.4 9.8 9.8 Bilirubin, Total 0.2 - 1.3 mg/dL 0.4 0.4 0.5 Alkaline Phosphatase 34 - 123 U/L 85 76 92 AST 13 - 35 U/L 26 30 21 ALT 7 - 38 U/L 22 29 18 Glucose 74 - 99 mg/dL 138 (H) 132 (H) 201 (H) BUN 7 - 21 mg/dL 11 12 13 Creatinine 0.58 - 0.96 mg/dL 0.68 0.68 0.67 Sodium 136 - 144 mmol/L 138 140 140 Potassium 3.7 - 5.1 mmol/L 4.2 4.3 4.3 Chloride 97 - 105 mmol/L 105 104 103 CO2 22 - 30 mmol/L 24 25 25 Anion Gap 9 - 18 mmol/L 9 11 12 eGFR >=60 mL/min/1.73m 104 104 104 Cholesterol, Total <200 mg/dL 127 139 Triglyceride <150 mg/dL 96 116 HDL Cholesterol >39 mg/dL 35 (L) 37 (L) Non HDL Cholesterol <130 mg/dL 92 102 Fasting Time hrs 12 15 VLDL Cholesterol <30 mg/dL 19 23 TC:HDL Ratio <5.10 3.63 3.76 LDL Cholesterol <100 mg/dL 73 79 LDL:HDL Ratio <2.54 2.09 2.14 Creatinine, Ur Random (UCRR) 20.0 - 300.0 mg/dL 261.7 27.5 Albumin, Urine Random mg/L 30.4 <12.0 Albumin/Creat Ratio 12 -- Hemoglobin A1C 4.3 - 5.6 % 7.6 (H) 7.5 (H) 7.8 (H) Estimated Average Glucose mg/dL 171 169 177 Magnesium 1.7 - 2.3 mg/dL 2.0 2.2 2.0 Vitamin D 25 Hydroxy 31.0 - 80.0 ng/mL 40.9 33.2 NT Pro BNP <125 pg/mL 52 Legend: (H) High (L) Low Assessment and Plan Encounter Diagnosis ICD-10-CM 1. Controlled type 2 diabetes mellitus without complication, with long-term current use of insulin ([facility]) E11.9 COMPREHENSIVE METABOLIC PANEL Z79.4 HEMOGLOBIN A1C Blood-Glucose Meter,Continuous (DEXCOM G7 BINDERY MACHINE TENDER) [facility]-Gl[facility] S[facility] (DEXCOM G7 SENSOR) [place] 2. Palpitations R00.2 atenolol (TENORMIN) 25 mg tablet 3. Essential hypertension I10 atenolol (TENORMIN) 25 mg tablet COMPREHENSIVE METABOLIC PANEL COMPLETE BLOOD COUNT 4. Vitamin D deficiency E55.9 VITAMIN D 25 HYDROXY 5. Tachycardia R00.0 atenolol (TENORMIN) 25 mg tablet 6. Displacement of lumbar intervertebral disc without myelopathy M51.26 Cane 7. Spondylolysis, lumbosacral M43.07 Cane 8. Lumbago M54.50 Cane 9. Primary osteoarthritis of right knee M17.11 Cane 10. Left foot pain M79.672 Cane 11. Abnormal mammogram R92.8 US BREAST LTD LEFT 12. Encounter for long-term current use of medication Z79.899 VITAMIN D 25 HYDROXY COMPREHENSIVE METABOLIC PANEL COMPLETE BLOOD COUNT MAGNESIUM HEMOGLOBIN A1C 13. Class 3 severe obesity due to excess calories with body mass index (BMI) of 50.0 to 59.9 in adult, unspecified whether serious comorbidity present ([facility]) E66.01 Z68.43 Above issues addressed with patient. Patient involved in shared decision making for management of medical issues. History and medications reviewed. Epic updated as needed Refills and/or prescriptions taken care of and meds adjusted as indicated after reviewed history, exam and labs. Health Maintenance reviewed. Updated record and/or ordered tests as recorded. Encouraged on efforts at healthy diet and regular exercise and adequate sleep. Needs to keep working on diet and exercise with lifestyle changes for effective weight loss as well as control of DM, and control of BP and lipids. Controlled type 2 diabetes mellitus without complication, with long-term current use of insulin (HCC): - Patient uses a CGM and insulin for management. - Discussed potential switch to Dexcom G7 for better adhesive properties and smaller size compared to current Freestyle Dusty 2. - Continue current insulin regimen and monitor blood glucose levels. Class 3 severe obesity due to excess calories with body mass index (BMI) of 50.0 to 59.9 in adult, unspecified whether serious comorbidity present (HCC): - Patient's weight has decreased since the last visit. - Encouraged continuation of current dietary habits, focusing on vegetable intake and reduced carbohydrate consumption. - Discussed the importance of regular physical activity as tolerated. Primary osteoarthritis of right knee: - Chronic, managed with current treatment. - Discussed importance of weight management and physical therapy to reduce strain on the knee. Abnormal mammogram: - Patient had an abnormal mammogram requiring further imaging. - Ordered a diagnostic ultrasound of the left breast to further investigate the findings. Palpitations: - Patient experiences chest pains and palpitations, potentially related to CPAP use. - Advised patient to keep a log of episodes to correlate with CPAP use data. - Monitor symptoms and consider further evaluation if episodes increase in frequency or severity. Essential hypertension: - Chronic, managed with current treatment. - Continue monitoring blood pressure and adherence to medication regimen. Vitamin D deficiency: - Patient takes 5,000 units of vitamin D daily. - No changes recommended at this time. Tachycardia: - Patient experiences episodes of tachycardia, potentially related to CPAP use. - Advised patient to keep a log of episodes to correlate with CPAP use data. - Monitor symptoms and consider further evaluation if episodes increase in frequency or severity. Displacement of lumbar intervertebral disc without myelopathy: - Chronic, managed with current treatment. - Discussed importance of maintaining proper posture and avoiding activities that may exacerbate symptoms. Spondylolysis, lumbosacral: - Chronic, managed with current treatment. - Discussed importance of maintaining proper posture and avoiding activities that may exacerbate symptoms. Lumbago: - Chronic, managed with current treatment. - Discussed importance of maintaining proper posture and avoiding activities that may exacerbate symptoms. Left foot pain: - Chronic, managed with current treatment. - Discussed importance of wearing appropriate footwear and considering orthotic devices to alleviate pain. Encounter for long-term current use of medication: - Patient is on multiple long-term medications for various chronic conditions. - Reviewed medication list and made necessary adjustments to ensure optimal management of conditions. I spent a total of at least 48 minutes on the date of the service which included [id number] patient care, completing clinical documentation, obtaining and/or reviewing separately obtained history, performing a medically appropriate examination, counseling and educating the patient/family/caregiver, ordering medications, tests, or procedures, independently interpreting results (not separately reported), and communicating results to the patient/family/caregiver. Aurora Macdonald MD documented in this encounter [facility] 12-27-2023 Telephone encounter Note Patient calling her sensor runs out tomorrow and is needing new rx. Pharmacy tells her they sent electronic request. Advised patient she needs to call office for request. Pending rx she is changing to [facility] pharmacy. \ Please advice The patient has been identified by name and date of : Yes Caregiver verified no other encounters exist for this prescription request: Yes Caregiver confirmed with patient/requestor that no other refills are due, in the near future, with this provider at this time: Yes The last office visit in the department: 08/28/2023 Does the patient have a future office visit with this provider/department: Yes 01/11/2024 Requested Prescriptions Pending Prescriptions Disp Refills flash glucose sensor (FREESTYLE DUSTY 2 SENSOR) kit 3 Kit 3 Sig: apply 1 SENSOR to back OF UPPER ARM REMOVE AND REPLACE every 14 days use with DEVICE to MONITOR BLOOD SUGAR Mily Madison LPN December 27, 2023 4:[address] [facility] 12-27-2023 Miscellaneous Notes Patient calling her sensor runs out tomorrow and is needing new rx. Pharmacy tells her they sent electronic request. Advised patient she needs to call office for request. Pending rx she is changing to [facility] pharmacy. \ Please advice The patient has been identified by name and date of : Yes Caregiver verified no other encounters exist for this prescription request: Yes Caregiver confirmed with patient/requestor that no other refills are due, in the near future, with this provider at this time: Yes The last office visit in the department: 08/28/2023 Does the patient have a future office visit with this provider/department: Yes 01/11/2024 Requested Prescriptions Pending Prescriptions Disp Refills flash glucose sensor (FREESTYLE DUSTY 2 SENSOR) kit 3 Kit 3 Sig: apply 1 SENSOR to back OF UPPER ARM REMOVE AND REPLACE every 14 days use with DEVICE to MONITOR BLOOD SUGAR Mily Madison LPN December 27, 2023 4:50 PM documented in this encounter [facility] 11-22-2023 Telephone encounter Note The patient has been identified by name and date of : Yes Caregiver verified no other encounters exist for this prescription request: Yes Caregiver confirmed with patient/requestor that no other refills are due, in the near future, with this provider at this time: Yes The last office visit in the department: 08/28/2023 Does the patient have a future office visit with this provider/department: Yes 01/11/2024 Requested Prescriptions Pending Prescriptions Disp Refills Insulin [place], Disposable, (BD INSULIN PEN NEEDLE UF) 29 gauge x 1/2 100 Each 11 Sig: Use 1 Needle For Each Dose 3-4 Times Daily With Novolog Pen For Meals and At Bedtime if Needed fluticasone (FLOVENT HFA) 220 mcg/actuation inhaler Sig: Inhale 2 Puffs as instructed two times a day. Sue Marcial LPN November 22, 2023 12:[address] [facility] 11-22-2023 Miscellaneous Notes The patient has been identified by name and date of : Yes Caregiver verified no other encounters exist for this prescription request: Yes Caregiver confirmed with patient/requestor that no other refills are due, in the near future, with this provider at this time: Yes The last office visit in the department: 08/28/2023 Does the patient have a future office visit with this provider/department: Yes 01/11/2024 Requested Prescriptions Pending Prescriptions Disp Refills Insulin [place], Disposable, (BD INSULIN PEN NEEDLE UF) 29 gauge x 1/2 100 Each 11 Sig: Use 1 Needle For Each Dose 3-4 Times Daily With Novolog Pen For Meals and At Bedtime if Needed fluticasone (FLOVENT HFA) 220 mcg/actuation inhaler Sig: Inhale 2 Puffs as instructed two times a day. Sue Marcial LPN November 22, 2023 12:08 PM documented in this encounter [facility] 11-19-2023 Telephone encounter Note Form has been mailed to patient as requested. [facility] 11-19-2023 Miscellaneous Notes Form has been mailed to patient as requested. Forms faxed to [employer]. Called and let Pt know form was faxed. Please make copy and mail it to Pt. Patient calls back to make sure provider almaguer condition as chronic so this can be done only every 3 years. Requests to have from faxed to [employer] at number provided and would like form mailed to home address once faxed. Pari Oliver RN Pt calling in stating she has a form for Dr. Macdonald to sign for her for [employer]. Pt states she needs it back by Sunday. Explained to pt that we would probably not be able to get that done by Sunday. Dr. Macdonald is out today and has a full schedule tomorrow. Pt is going to bring it in. Explained that we would do our best to get it signed and back to her but we need usually about a week to get forms completed. Pt verbalizes understanding and states she will bring it in and if we can possibly get it done by Sunday, she would appreciate it. documented in this encounter [facility] 11-17-2023 Telephone encounter Note Forms faxed to [employer]. Called and let Pt know form was faxed. Please make copy and mail it to Pt. [facility] 11-16-2023 Telephone encounter Note Patient calls back to make sure provider almaguer condition as chronic so this can be done only every 3 years. Requests to have from faxed to [employer] at number provided and would like form mailed to home address once faxed. Pari Oliver RN [facility] 11-15-2023 Telephone encounter Note Pt calling in stating she has a form for Dr. Macdonald to sign for her for [employer]. Pt states she needs it back by Sunday. Explained to pt that we would probably not be able to get that done by Sunday. Dr. Macdonald is out today and has a full schedule tomorrow. Pt is going to bring it in. Explained that we would do our best to get it signed and back to her but we need usually about a week to get forms completed. Pt verbalizes understanding and states she will bring it in and if we can possibly get it done by Sunday, she would appreciate it. [facility] 11-13-2023 Telephone encounter Note Patient called and notified that order placed. Patient voices understanding. Key Montgomeyr RN [facility] 11-13-2023 Miscellaneous Notes Patient called and notified that order placed. Patient voices understanding. Key Montgomery RN Filed order Patient calling and asking if lab order can be for albumin/creat ratio to check kidney function? Patient had labs done in October and this order was not placed. Patient states that provider checks this lab yearly. Please review and advise, Key Montgomery RN documented in this encounter [facility] 11-12-2023 Telephone encounter Note Filed order [facility] 11-12-2023 Telephone encounter Note Patient calling and asking if lab order can be for albumin/creat ratio to check kidney function? Patient had labs done in October and this order was not placed. Patient states that provider checks this lab yearly. Please review and advise, Key Montgomery RN [facility] 08-28-2023 History of Present illness Narrative This note was created using [email or web address]. Subjective Malathi Zambrano is a 53 year old female. Patient presents with: 4 month follow up SUBJECTIVE: Malathi Zambrano is a 53 year old year old lady here today for 4 month follow up appointment for review of medical conditions. Worse spasms in muscles in legs. Wearing knee brace on right. Helps so can get around but still with pain. Foot pain like metatarsals are spreading too far out. Saw Chelly last year.Had orthotics made but they did not help. Could not walk with them. (Discussed arch support socks). Leg cramps in calves often. Hard to get out of bed. Will follow up with 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 for IUD. Anxiety ongoing issue. PAST MEDICAL HISTORY Diagnosis Date Abdominal pain, left upper quadrant Abdominal pain, unspecified site Acquired spondylolisthesis 07/25/2010 Acute gastritis without mention of hemorrhage Arthritis Asthma Calcaneal spur 10/15/2009 COPD (chronic obstructive pulmonary disease) (HCC) Cough DEPRESSIVE DISORDER NEC 06/15/2007 Depressive disorder, not elsewhere classified Diabetes mellitus without mention of complication Diabetes mellitus Diabetes mellitus without mention of complication Diabetes mellitus type 2 Displacement of lumbar intervertebral disc without myelopathy 12/30/2009 Esophageal reflux 10/01/2006 Esophagitis, unspecified Fibromyalgia 07/25/2010 Generalized anxiety disorder Anxiety, Generalized Hemorrhage of gastrointestinal tract, unspecified Hypertension Internal hemorrhoids without mention of complication Left carpal tunnel syndrome 09/11/2013 Lumbago 08/05/2008 Migraine 03/02/2009 Mixed stress and urge urinary incontinence Myalgia and myositis, unspecified Obesity, unspecified Obesity ZHAO (obstructive sleep apnea) 05/01/2011 uses C-PAP PMH - PAST MEDICAL HISTORY OF allergic syndrome; gets allergy shots PMH - PAST MEDICAL HISTORY OF bipolar Psoriasis and similar disorders Sleep apnea Spondylolysis, 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 Grissom saw in the past Vitamin D deficiency 11/29/2010 on calcitriol Current Outpatient Medications Medication Sig flaxseed oil (OMEGA 3 ORAL) Take by mouth. mecobalamin (B12 ACTIVE ORAL) Take by mouth. flash glucose sensor (FREESTYLE DUSTY 2 SENSOR) kit apply 1 SENSOR to back OF UPPER ARM REMOVE AND REPLACE every 14 days use with DEVICE to MONITOR BLOOD SUGAR insulin glargine (LANTUS SOLOSTAR U-100 INSULIN) 100 unit/mL (3 mL) Inject 120 Units subcutaneously daily at bedtime. Please dispense 15 pens (3 boxes at a time). CPAP ContinueAPAP @ 13-20 cm of water with humidification. Mask (per patient preference) optional chin strap (if indicated) , filters, tubing, humidifier and lifetime supplies. EPR set at 3. (G47.33) ZHAO (obstructive sleep apnea). Needs new mask at least every 3 months and needs new mask now since current one is leaking. Also needs new headgear now since current one is loose. atenolol (TENORMIN) 25 mg tablet take 1 tablet by mouth once daily as directed DULoxetine (CYMBALTA) 30 mg capsule Take 1 capsule by mouth once daily. montelukast (SINGULAIR) 10 mg tablet Take 1 tablet by mouth daily at bedtime. insulin aspart U-100 (NOVOLOG FLEXPEN U-100 INSULIN) 100 unit/mL (3 mL) WITH FIRST BITE OF FOOD, 30 UNITS W/BREAKFAST, 30 UNITS W/LUNCH, 30 UNITS W/DINNER; MAY ADJUST WITH SLIDING SCALE GIVEN HIGH BLOOD SUGAR budesonide (PULMICORT) 0.5 mg/2 mL nebulizer solution Use 2 mL via nebulizer once daily. omeprazole (PRILOSEC) 20 mg capsule Take 1 capsule by mouth daily before breakfast. 1/2 hr before meal. As directed. cyclobenzaprine (FLEXERIL) 10 mg tablet Take 0.5-1 tablets by mouth twice daily as needed. nystatin (MYCOSTATIN) cream Apply 1 application to affected area twice daily as needed. Cholecalciferol, Vitamin D3, 25 mcg (1,000 unit) cap Takes 1600 to 2000 units daily with supplement OTC flash glucose scanning reader (FREESTYLE DUSTY 2 READER) Check glucose 4 times a day or more as directed. Dx: ICD10: E11.40, Z79.4. Insulin: Yes. omega-3/dha/epa/dpa/fish oil (OMEGA-3 2100 ORAL) Take 1 tablet by mouth twice daily. ascorbic acid (VITAMIN C ORAL) Take 3,000 Units by mouth once daily. Insulin [place], Disposable, (BD INSULIN PEN NEEDLE UF) 29 gauge x 1/2 Use 1 Needle For Each Dose 3-4 Times Daily With Novolog Pen For Meals and At Bedtime if Needed COMPOUNDED PRESCRIPTION CPAP supplies--mask per patient preference, tubing, humidifier as needed. G47.33, Z99.89 ZHAO on CPAP Blood-Glucose Meter monitoring kit Glucose Meter of Choice (covered by [employer] - Kit - Dx: Type 2 DM - Uncontrolled ., Insulin Yes Incontinence Pad, Liner, Disp pads Change pad 3 to 5 times daily. N39.46 blood sugar diagnostic (BLOOD GLUCOSE TEST) test strip Test blood sugar(s) 4 times daily. Dx: Type 2 DM - Uncontrolled Insulin: Yes celecoxib (CELEBREX) 200 mg capsule Take 1 capsule by mouth two times a day. semaglutide, weight loss, (WEGOVY) 0.25 mg/0.5 mL pen injector Inject 0.5 mL subcutaneously one time a week. blood sugar diagnostic (FREESTYLE LITE STRIPS) test strip Test blood sugar(s) 4 to 5 times times daily. Dx: Type 2 DM - Uncontrolled Insulin: Yes albuterol HFA (VENTOLIN HFA) 90 mcg/actuation inhaler Inhale 2 Puffs as instructed every 4 hours as needed for wheezing/shortness of breath. albuterol (PROVENTIL) 2.5 mg /3 mL (0.083 %) nebulizer solution Use 3 mL via nebulizer every 4 hours as needed for wheezing/shortness of breath. Use over 5-15minutes. hydroCHLOROthiazide (HYDRODIURIL, ESIDRIX) 25 mg tablet Take 1 tablet by mouth once daily. As needed for swelling from fluid retention fluconazole (DIFLUCAN) 150 mg tablet Take by mouth. Take at onset of yeast infection. Repeat after 5 to 7 days if ongoing symptoms. May treat recurrent episodes as needed. norethindrone (AYGESTIN) 5 mg tablet Take 1 tablet by mouth as directed. 1 tablet 3 times daily until bleeding stops then twice daily for 2 days then 1 tablet daily for 2 days. ergocalciferol 50,000 unit capsule (VITAMIN D2, DRISDOL) Take 1 capsule by mouth one time a week. Blood-Glucose Meter (FREESTYLE LITE METER) monitoring kit Check blood sugars as directed for controlled Type 2 DM without complication mupirocin (BACTROBAN) 2 % ointment Apply 1 application to affected area three times daily. Location: torso wounds as directed till healed COMPOUNDED PRESCRIPTION Bilateral compression Knee Hi 20-30 mm. ICD 10; 459.81; 782.3 Compression Knee Highs KNEE HIGH COMPRESSION STOCKINGS 30-40 MM. DX: (I87.8/459.81) Venous stasis (R60.0782.3) Bilateral edema of lower extremity Lancets (FREESTYLE LANCETS) lancets tests sugar 4 to 6 times daily DX:250.02 Insulin dependent (this is corrected RX) Cane Misc [place] 1 Each. Diagnosis: 724.2 Back pain (Patient taking differently: 1 Each as needed. Diagnosis: 724.2 Back pain) Current Facility-Administered Medications Medication Dose Route Frequency perflutren lipid microspheres 1.3 mL in NaCl (PF) 0.9% 10 mL injection (DEFINITY) INTRAVENOUS DIRECTED PRN sodium chloride 0.9 % (flush) 10 mL (BD POSIFLUSH) 10 mL INTRAVENOUS DIRECTED PRN Review of Systems Objective BP 124/82 Pulse 83 Resp 16 Ht 157.5 cm (5' 2) Wt 133.4 kg (294 lb) LMP 11/28/2020 (LMP Unknown) BMI 53.77 kg/m Physical Exam Last labs Latest Ref Rng 02/09/2023 WBC 3.70 - 11.00 k/uL 8.79 RBC 3.90 - 5.20 m/uL 4.78 Hemoglobin 11.5 - 15.5 g/dL 14.3 Hematocrit 36.0 - 46.0 % 44.5 MCV 80.0 - 100.0 fL 93.1 MCH 26.0 - 34.0 pg 29.9 MCHC 30.5 - 36.0 g/dL 32.1 RDW-CV 11.5 - 15.0 % 13.2 Platelet Count 150 - 400 k/uL 257 MPV 9.0 - 12.7 fL 9.2 Neut% % 69.6 Abs Neut (ANC) 1.45 - 7.50 k/uL 6.13 Lymph% % 20.3 Abs Lymph 1.00 - 4.00 k/uL 1.78 [place]% % 7.6 Abs [place] <0.87 k/uL 0.67 Eosin% % 1.4 Abs Eosin <0.46 k/uL 0.12 Baso% % 0.5 Abs Baso <0.11 k/uL 0.04 Immature Gran % % 0.6 IMMATURE GRANS (ABS) <0.10 k/uL 0.05 NRBC /100 WBC 0.0 Absolute nRBC <0.01 k/uL <0.01 DTYPE Auto Protein, Total 6.3 - 8.0 g/dL 7.1 Albumin 3.9 - 4.9 g/dL 4.1 Calcium 8.5 - 10.2 mg/dL 9.8 Bilirubin, Total 0.2 - 1.3 mg/dL 0.4 Alkaline Phosphatase 34 - 123 U/L 76 AST 13 - 35 U/L 30 ALT 7 - 38 U/L 29 Glucose 74 - 99 mg/dL 132 (H) BUN 7 - 21 mg/dL 12 Creatinine 0.58 - 0.96 mg/dL 0.68 Sodium 136 - 144 mmol/L 140 Potassium 3.7 - 5.1 mmol/L 4.3 Chloride 97 - 105 mmol/L 104 CO2 22 - 30 mmol/L 25 Anion Gap 9 - 18 mmol/L 11 eGFR >=60 mL/min/1.73m 104 Cholesterol, Total <200 mg/dL 127 Triglyceride <150 mg/dL 96 HDL Cholesterol >39 mg/dL 35 (L) Non HDL Cholesterol <130 mg/dL 92 Fasting Time hrs 12 VLDL Cholesterol <30 mg/dL 19 TC:HDL Ratio <5.10 3.63 LDL Cholesterol <100 mg/dL 73 LDL:HDL Ratio <2.54 2.09 Hemoglobin A1C 4.3 - 5.6 % 7.5 (H) Estimated Average Glucose mg/dL 169 Magnesium 1.7 - 2.3 mg/dL 2.2 NT Pro BNP <125 pg/mL 52 Legend: (H) High (L) Low Reviewed mammogram. IMPRESSION: INCOMPLETE: NEEDS ADDITIONAL IMAGING EVALUATION There is no abnormality seen in the left breast to correspond with the palpable abnormality indicated by a triangular marker in the inferior medial quadrant, however, ultrasound is recommended. Assessment and Plan Encounter Diagnosis ICD-10-CM 1. Chronic pain of right knee M25.561 CONSULT TO PHYSICAL THERAPY G89.29 2. Primary osteoarthritis of right knee M17.11 CONSULT TO PHYSICAL THERAPY 3. Right foot pain M79.671 CONSULT TO PHYSICAL THERAPY 4. Type 2 diabetes mellitus with diabetic neuropathy, with long-term current use of insulin (HCC) E11.40 HGB A1C Z79.4 COMP METABOLIC PANEL 5. Essential hypertension I10 COMP METABOLIC PANEL CBC 6. Vitamin D deficiency E55.9 VITAMIN D 25 HYDROXY 7. Medication management Z79.899 HGB A1C COMP METABOLIC PANEL CBC LIPID PANEL BASIC MAGNESIUM BLD VITAMIN D 25 HYDROXY 8. Controlled type 2 diabetes mellitus without complication, with long-term current use of insulin (HCC) E11.9 Blood-Glucose Meter (FREESTYLE LITE METER) monitoring kit Z79.4 9. Abnormal mammogram R92.8 NOAH DIAGNOSTIC LEFT Above issues addressed with patient. Patient involved in shared decision making for management of medical issues. History and medications reviewed. Epic updated as needed Refills and/or prescriptions taken care of and meds adjusted as indicated after reviewed history, exam and labs. Health Maintenance reviewed. Updated record and/or ordered tests as recorded. Encouraged on efforts at healthy diet and regular exercise and adequate sleep. I spent a total of 58 minutes on the date of the service which included [id number] patient care, completing clinical documentation, obtaining and/or reviewing separately obtained history, performing a medically appropriate examination, counseling and educating the patient/family/caregiver, ordering medications, tests, or procedures, independently interpreting results (not separately reported), and communicating results to the patient/family/caregiver. Aurora Macdonald MD documented in this encounter [facility] 08-17-2023 Miscellaneous Notes August 20, 2023 PID: [id number] Malathi Zambrano [address] [place] [address] Dear Ms. Zambrano, Your recent breast imaging exam on 08/16/2023 showed a possible finding that requires additional imaging studies for a complete evaluation. Most such findings are probably benign (not cancer). If you have a healthcare provider who ordered/prescribed your screening mammogram: Please call [phone] or [phone]: [phone] to schedule an appointment for your additional imaging (if you have not already done so). If you DO NOT have a healthcare provider (ie you did not have an order/prescription for your screening mammogram): Please call to schedule an appointment for your additional imaging (if you have not already done so). You must have an order/prescription from your physician when calling to schedule your appointment. If your order/prescription is not electronic, you must bring the hard copy with you on the day of your exam to avoid delays. Your imaging studies and reports are kept on file at [facility] as part of your permanent medical record, and are available for your continuing care. Thank you for allowing us to help in meeting your health care needs. Sincerely, Dr. Cleary Interpreting Radiologist [facility] (Additional imaging) documented in this encounter [facility] 08-16-2023 History of Present illness Narrative Radiology Service Progress Note PATIENT NAME: Malathi Zambrano DATE OF SERVICE: August 16, 2023 TIME: 2:55 PM PATIENT IDENTITY VERIFICATION COMPLETED USING TWO (2) IDENTIFIERS: Name and Date of confirmed by patient verbally. FALL SCREENING: Has the patient had 2 falls in the last year or 1 fall with injury or currently using an Ambulatory Assistive Device (Walker, Cane, Wheelchair, Crutches, etc.)? No PATIENT GENDER DATA: Female. status: : No status: NO. PATIENT RELEVANT IMPLANT DATA REVIEWED: Not Applicable PATIENT PRESENTS WITH AN IMPLANTABLE OR ATTACHED CLOCK ASSEMBLER: No RADIOLOGY DEPARTMENT: Mammography PERIPHERAL IV DATA: Not applicable SIGNED BY: Parth Mishra August 16, 2023 2:55 PM documented in this encounter [facility] 07-24-2023 Miscellaneous Notes Scheduled for 09/12/2023 with Eber Morelos. Pari Oliver RN Consult placed, please schedule with Dr. Morelos per request. [facility] also [facility] counseling if she would like for additional support. Patient calls to request a referral to behavioral health for grief counseling. She reports she continues to have sleep deprivation and numb feeling that she shouldn't be here without her son. Denies any sucidial or homicidal thoughts, plans, or attempts. Patient had referral to behavioral health in 11/2021 for resources but didn't follow up. Reviewed care advice and instructed patient on phone number of [phone] Hotline if were to be needed at any time. Patient requests Eber Morelos for grief counseling. Pended request. Pari Oliver RN documented in this encounter [facility] 07-13-2023 Miscellaneous Notes Addended by: AURORA MACDONALD on: 07/13/2023 06:32 PM Modules accepted: Level of Service documented in this encounter [facility] 06-13-2023 History of Present illness Narrative This note was created using [employer]. Subjective Malathi Zambrano is a 53 year old female. Patient presents with: Urinary Problem: X 4-5 days painful urination SUBJECTIVE: Malathi Zambrano is a 53 year old year old lady here today for follow up appointment for review of medical conditions. Bladder hurts inside even while sitting. Stabbing pain right before urinating and while urinating. Throbbing pain sometimes. The other night started hurting while laying in bed and had urgency to urinate. Tightening and squeezing. Cannot completely empty bladder if does not have BM. No problems with constipation with taking Miralax and Metamucil--needed to stop since started on Celebrex and using Magnesium Calm for now. Has muscle spasm elsewhere. Noted saw Dr. Fonseca. Taken off ibuprofen. Prescribed Celebrex. Right knee pain is better but now left hip area pain. Also getting pain in more areas. Before was pain would be in one area for a while but not multiple areas. When walks, feels like the right knee is twisted and hurt to walk. PAST MEDICAL HISTORY Diagnosis Date Abdominal pain, left upper quadrant Abdominal pain, unspecified site Acquired spondylolisthesis 07/25/2010 Acute gastritis without mention of hemorrhage Arthritis Asthma Calcaneal spur 10/15/2009 COPD (chronic obstructive pulmonary disease) (HCC) Cough DEPRESSIVE DISORDER NEC 06/15/2007 Depressive disorder, not elsewhere classified Diabetes mellitus without mention of complication Diabetes mellitus Diabetes mellitus without mention of complication Diabetes mellitus type 2 Displacement of lumbar intervertebral disc without myelopathy 12/30/2009 Esophageal reflux 10/01/2006 Esophagitis, unspecified Fibromyalgia 07/25/2010 Generalized anxiety disorder Anxiety, Generalized Hemorrhage of gastrointestinal tract, unspecified Hypertension Internal hemorrhoids without mention of complication Left carpal tunnel syndrome 09/11/2013 Lumbago 08/05/2008 Migraine 03/02/2009 Mixed stress and urge urinary incontinence Myalgia and myositis, unspecified Obesity, unspecified Obesity ZHAO (obstructive sleep apnea) 05/01/2011 uses C-PAP PMH - PAST MEDICAL HISTORY OF allergic syndrome; gets allergy shots PMH - PAST MEDICAL HISTORY OF bipolar Psoriasis and similar disorders Sleep apnea Spondylolysis, 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 Grissom saw in the past Vitamin D deficiency 11/29/2010 on calcitriol Current Outpatient Medications Medication Sig insulin glargine (LANTUS SOLOSTAR U-100 INSULIN) 100 unit/mL (3 mL) Inject 120 Units subcutaneously daily at bedtime. Please dispense 15 pens (3 boxes at a time). montelukast (SINGULAIR) 10 mg tablet Take 1 tablet by mouth daily at bedtime. insulin aspart U-100 (NOVOLOG FLEXPEN U-100 INSULIN) 100 unit/mL (3 mL) WITH FIRST BITE OF FOOD, 30 UNITS W/BREAKFAST, 30 UNITS W/LUNCH, 30 UNITS W/DINNER; MAY ADJUST WITH SLIDING SCALE GIVEN HIGH BLOOD SUGAR budesonide (PULMICORT) 0.5 mg/2 mL nebulizer solution Use 2 mL via nebulizer once daily. omega-3/dha/epa/dpa/fish oil (OMEGA-3 2100 ORAL) Take 1 tablet by mouth twice daily. Insulin [place], Disposable, (BD INSULIN PEN NEEDLE UF) 29 gauge x 1/2 Use 1 Needle For Each Dose 3-4 Times Daily With Novolog Pen For Meals and At Bedtime if Needed Incontinence Pad, Liner, Disp pads Change pad 3 to 5 times daily. N39.46 Cane Misc [place] 1 Each. Diagnosis: 724.2 Back pain (Patient taking differently: 1 Each as needed. Diagnosis: 724.2 Back pain) celecoxib (CELEBREX) 200 mg capsule Take 1 capsule by mouth two times a day. CPAP ContinueAPAP @ 13-20 cm of water with humidification. Mask (per patient preference) optional chin strap (if indicated) , filters, tubing, humidifier and lifetime supplies. EPR set at 3. (G47.33) ZHAO (obstructive sleep apnea). Needs new mask at least every 3 months and needs new mask now since current one is leaking. Also needs new headgear now since current one is loose. atenolol (TENORMIN) 25 mg tablet take 1 tablet by mouth once daily as directed DULoxetine (CYMBALTA) 30 mg capsule Take 1 capsule by mouth once daily. semaglutide, weight loss, (WEGOVY) 0.25 mg/0.5 mL pen injector Inject 0.5 mL subcutaneously one time a week. (Patient not taking: Reported on 02/09/2023) flash glucose sensor (FREESTYLE DUSTY 2 SENSOR) kit Check glucose 4 times a day or more as directed. Dx: ICD10: E11.40, Z79.4. Insulin: Yes. blood sugar diagnostic (BLOOD GLUCOSE TEST) test strip Test blood sugar(s) 4 times daily. Dx: Type 2 DM - Uncontrolled E11.65 Insulin: Yes blood sugar diagnostic (FREESTYLE LITE STRIPS) test strip Test blood sugar(s) 4 to 5 times times daily. Dx: Type 2 DM - Uncontrolled E11.65 Insulin: Yes albuterol HFA (VENTOLIN HFA) 90 mcg/actuation inhaler Inhale 2 Puffs as instructed every 4 hours as needed for wheezing/shortness of breath. (Patient not taking: Reported on 04/27/2023) albuterol (PROVENTIL) 2.5 mg /3 mL (0.083 %) nebulizer solution Use 3 mL via nebulizer every 4 hours as needed for wheezing/shortness of breath. Use over 5-15minutes. (Patient not taking: Reported on 04/27/2023) omeprazole (PRILOSEC) 20 mg capsule Take 1 capsule by mouth daily before breakfast. 1/2 hr before meal. As directed. cyclobenzaprine (FLEXERIL) 10 mg tablet Take 0.5-1 tablets by mouth twice daily as needed. hydroCHLOROthiazide (HYDRODIURIL, ESIDRIX) 25 mg tablet Take 1 tablet by mouth once daily. As needed for swelling from fluid retention (Patient not taking: Reported on 06/05/2023) nystatin (MYCOSTATIN) cream Apply 1 application to affected area twice daily as needed. Cholecalciferol, Vitamin D3, 25 mcg (1,000 unit) cap Takes 1600 to 2000 units daily with supplement OTC fluconazole (DIFLUCAN) 150 mg tablet Take by mouth. Take at onset of yeast infection. Repeat after 5 to 7 days if ongoing symptoms. May treat recurrent episodes as needed. flash glucose scanning reader (FREESTYLE DUSTY 2 READER) Check glucose 4 times a day or more as directed. Dx: ICD10: E11.40, Z79.4. Insulin: Yes. norethindrone (AYGESTIN) 5 mg tablet Take 1 tablet by mouth as directed. 1 tablet 3 times daily until bleeding stops then twice daily for 2 days then 1 tablet daily for 2 days. (Patient not taking: Reported on 04/27/2023) ascorbic acid (VITAMIN C ORAL) Take 3,000 Units by mouth once daily. ergocalciferol 50,000 unit capsule (VITAMIN D2, DRISDOL) Take 1 capsule by mouth one time a week. (Patient not taking: Reported on 06/07/2022) Blood-Glucose Meter (FREESTYLE LITE METER) monitoring kit Check blood sugars as directed for controlled Type 2 DM without complication mupirocin (BACTROBAN) 2 % ointment Apply 1 application to affected area three times daily. Location: torso wounds as directed till healed COMPOUNDED PRESCRIPTION CPAP supplies--mask per patient preference, tubing, humidifier as needed. G47.33, Z99.89 ZHAO on CPAP Blood-Glucose Meter monitoring kit Glucose Meter of Choice (covered by [employer]) - Kit - Dx: Type 2 DM - Uncontrolled E11.65, Insulin Yes COMPOUNDED PRESCRIPTION Bilateral compression Knee Hi 20-30 mm. ICD 10; 459.81; 782.3 (Patient not taking: Reported on 06/07/2022) Compression Knee Highs KNEE HIGH COMPRESSION STOCKINGS 30-40 MM. DX: (I87.8/459.81) Venous stasis (R60.0782.3) Bilateral edema of lower extremity (Patient not taking: Reported on 11/06/2022) Lancets (FREESTYLE LANCETS) lancets tests sugar 4 to 6 times daily DX:250.02 Insulin dependent (this is corrected RX) Current Facility-Administered Medications Medication Dose Route Frequency perflutren lipid microspheres 1.3 mL in NaCl (PF) 0.9% 10 mL injection (DEFINITY) INTRAVENOUS DIRECTED PRN sodium chloride 0.9 % (flush) 10 mL (BD POSIFLUSH) 10 mL INTRAVENOUS DIRECTED PRN Review of Systems Objective BP 112/62 Pulse 76 Temp 36.8 C (98.2 F) Resp 18 Wt 129.7 kg (286 lb) LMP 11/28/2020 (LMP Unknown) SpO2 98% BMI 54.04 kg/m Physical Exam Constitutional: Appearance: Normal appearance. HENT: Head: Normocephalic. Eyes: Conjunctiva/sclera: Conjunctivae normal. Cardiovascular: Rate and Rhythm: Normal rate and regular rhythm. Heart sounds: Normal heart sounds. Pulmonary: Effort: Pulmonary effort is normal. Breath sounds: Normal breath sounds. Skin: General: Skin is warm and dry. Neurological: General: No focal deficit present. Mental Status: She is alert and oriented to person, place, and time. Psychiatric: Mood and Affect: Mood normal. Behavior: Behavior normal. Thought Content: Thought content normal. Judgment: Judgment normal. URINE POC GLUCOSE UA (POCT) Negative 06/13/2023 BILIRUBIN UA (POCT) Negative 06/13/2023 KETONE UA (POCT) Negative 06/13/2023 SPECIFIC GRAVITY UA (POCT) 1.010 06/13/2023 HEMOGLOBIN/BLOOD UA (POCT) Negative 06/13/2023 PH UA (POCT) 6.0 06/13/2023 PROTEIN UA (POCT) Negative 06/13/2023 UROBILINOGEN UA (POCT) 0.2 06/13/2023 NITRITE UA (POCT) Negative 06/13/2023 LEUKOCYTES UA (POCT) Negative 06/13/2023 COLOR UA (POCT) Yellow 06/13/2023 CLARITY UA (POCT) Clear 06/13/2023 Assessment and Plan Encounter Diagnosis ICD-10-CM 1. Dysuria R30.0 URINE CULTURE URINALYSIS, WITH MICROSCOPIC UA DIP, URINE (POC) UA DIP, URINE (POC) Urine dip unremarkable. No signs of acute UTI. Monitor symptoms.Stay hydrated, Urology eval as indicated 2. Bladder spasms N32.89 As noted above 3. Polyarthralgia M25.50 DJD and weight contributing. Follow up with ortho and/or PT as indicated 4. Chronic pain of right knee M25.561 G89.29 As noted above 5. Left hip pain M25.552 As noted above. Above issues addressed with patient. Patient involved in shared decision making for management of medical issues. History and medications reviewed. Epic updated as needed Refills and/or prescriptions taken care of and meds adjusted as indicated after reviewed history, exam and labs. Health Maintenance reviewed. Updated record and/or ordered tests as recorded. Encouraged on efforts at healthy diet and regular exercise and adequate sleep. Needs to keep working on diet and exercise with lifestyle changes for effective weight loss as well as control of DM, and control of BP and lipids. I spent a total of at least 35 minutes on the date of the service which included [id number] patient care, completing clinical documentation, obtaining and/or reviewing separately obtained history, performing a medically appropriate examination, counseling and educating the patient/family/caregiver, and ordering medications, tests, or procedures. Aurora Macdonald MD documented in this encounter [facility] 06-05-2023 Note HNO ID: [id number] Author: Jayna Quiles Tech Service: ? Author Type: Customer Service Sales Associate Type: Progress Notes Filed: 06/05/2023 2:01 PM Note Text: Radiology Service Progress Note PATIENT NAME: Malathi Zambrano DATE OF SERVICE: June 05, 2023 TIME: 2:00 PM PATIENT IDENTITY VERIFICATION COMPLETED USING TWO (2) IDENTIFIERS: Name and Date of confirmed by patient verbally. FALL SCREENING: Has the patient had 2 falls in the last year or 1 fall with injury or currently using an Ambulatory Assistive Device (Walker, Cane, Wheelchair, Crutches, etc.)? No PATIENT GENDER DATA: Female. status: : No status: NO. PATIENT RELEVANT IMPLANT DATA REVIEWED: Not Applicable RADIOLOGY DEPARTMENT: General X-ray: Exam(s) Completed: Pelvis X-Ray: Pelvis with Hip Right and Wt. Bearing Lower Extremity X-Ray(s): Knee, AP / Lat / Tunne / Merchant Right and Wt. Bearing PERIPHERAL IV DATA: Not applicable SIGNED BY: Drake Sloan June 05, 2023 2:00 PM [facility] 06-05-2023 History of Present illness Narrative Radiology Service Progress Note PATIENT NAME: Malathi Zambrano DATE OF SERVICE: June 05, 2023 TIME: 2:00 PM PATIENT IDENTITY VERIFICATION COMPLETED USING TWO (2) IDENTIFIERS: Name and Date of confirmed by patient verbally. FALL SCREENING: Has the patient had 2 falls in the last year or 1 fall with injury or currently using an Ambulatory Assistive Device (Walker, Cane, Wheelchair, Crutches, etc.)? No PATIENT GENDER DATA: Female. status: : No status: NO. PATIENT RELEVANT IMPLANT DATA REVIEWED: Not Applicable RADIOLOGY DEPARTMENT: General X-ray: Exam(s) Completed: Pelvis X-Ray: Pelvis with Hip Right and Wt. Bearing Lower Extremity X-Ray(s): Knee, AP / Lat / Tunne / Merchant Right and Wt. Bearing PERIPHERAL IV DATA: Not applicable SIGNED BY: Drake Sloan June 05, 2023 2:00 PM documented in this encounter [facility] 05-07-2023 Miscellaneous Notes Pt called for her insulin below. She has enough left for today. Pt was to return in 4 months around 08/26/23. Pt will only see Dr. Macdonald and there is no openings till November. Pt reports she was told Dr. Macdonald's nurse in the office will need to book her apts not the triage nurses. Please review and refill and call pt to schedule apts. Patient has been identified by name and date of : Yes, Provider Dr. Macdonald Date 05/07/23 Time 9:55 am Patient phones for refill(s): Requested Prescriptions Pending Prescriptions Disp Refills insulin glargine (LANTUS SOLOSTAR U-100 INSULIN) 100 unit/mL (3 mL) 45 mL 11 Sig: Inject 120 Units subcutaneously daily at bedtime. Please dispense 15 pens (3 boxes at a time). Date of last office visit in primary care: 04/27/2023 Date of next office visit in primary care: Office to call pt to schedule Last 2 Encounter Wt Readings: Date: Wt: 04/27/2023 130.6 kg (288 lb) 02/09/2023 130.1 kg (286 lb 12.8 oz) Previous labs/tests for medication: Diabetes: Hemoglobin A1C (%) Date Value 02/09/2023 7.5 09/07/2022 7.6 06/20/2021 8.2 10/19/2020 7.0 Please advise. Thank you. Sue Marcial LPN.\ documented in this encounter [facility] 04-27-2023 Instructions Aurora Macdonald MD - 04/27/2023 6:31 PM EST Miralax 1 cap daily--may increase to 2 capfuls in 4 to 8 ounces. Metamucil 1.5 tablespoons (or per package direction) daily. Can increase to twice daily. GasX (simethicone) max dose 125 mg 4 times daily. Beano with meals to help with digesting vegetables. Limit fruits. Okay berries. Kiwis when get constipation since helps get going. Can try equal parts prune juice, oatbran, applesauce--let soak overnight and eat 1 to 2 tablespoons daily. Example: mix 1/3 cup each and that's enough for 2 tablespoons for 8 days Pumpkin can help with constipation. documented in this encounter [facility] 04-27-2023 History of Present illness Narrative This note was created using NoteWriter. Subjective Malathi Zambrano is a 52 year old female. Patient presents with: Established Patient: Review medications and labwork SUBJECTIVE: Malathi Zambrano is a 52 year old year old lady here today for follow up appointment for review of medical conditions. Issues with SOB after drinking just water. Feels like something squeezing her lungs. Eating anything or drinking water can cause breathing issues. Never got follow up for sleep study. Melody told her she needs Kassy noninvasive ventilator since used APAP while awake. Noted that needs masks replacement more often since uses APAP more than overnight. has to use during the day time. Issues with pharmacies and getting meds. Problems with [facility]. Was doing well on Ozempic till dose increased and could not move bowels, etc. Since off of this, sugars would get really high. Sometimes 300s without eating. Today was 155. CGM average sugars 170. Still has cough that persisted since illness the year was supposed to have bariatric surgery.Now needs to start from square one. Was doing well with weight loss with working with the weight loss doctor. Does have the info but needs th accountability that she had with the doctor and the counselor. Walking on treadmill and up from 1 minute to 4 minutes per day. Took 3 months. PAST MEDICAL HISTORY Diagnosis Date Abdominal pain, left upper quadrant Abdominal pain, unspecified site Acquired spondylolisthesis 07/25/2010 Acute gastritis without mention of hemorrhage Arthritis Asthma Calcaneal spur 10/15/2009 COPD (chronic obstructive pulmonary disease) (HCC) Cough DEPRESSIVE DISORDER NEC 06/15/2007 Depressive disorder, not elsewhere classified Diabetes mellitus without mention of complication Diabetes mellitus Diabetes mellitus without mention of complication Diabetes mellitus type 2 Displacement of lumbar intervertebral disc without myelopathy 12/30/2009 Esophageal reflux 10/01/2006 Esophagitis, unspecified Fibromyalgia 07/25/2010 Generalized anxiety disorder Anxiety, Generalized Hemorrhage of gastrointestinal tract, unspecified Hypertension Internal hemorrhoids without mention of complication Left carpal tunnel syndrome 09/11/2013 Lumbago 08/05/2008 Migraine 03/02/2009 Mixed stress and urge urinary incontinence Myalgia and myositis, unspecified Obesity, unspecified Obesity ZHAO (obstructive sleep apnea) 05/01/2011 uses C-PAP PMH - PAST MEDICAL HISTORY OF allergic syndrome; gets allergy shots PMH - PAST MEDICAL HISTORY OF bipolar Psoriasis and similar disorders Sleep apnea Spondylolysis, 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 Grissom saw in the past Vitamin D deficiency 11/29/2010 on calcitriol Current Outpatient Medications Medication Sig atenolol (TENORMIN) 25 mg tablet take 1 tablet by mouth once daily as directed DULoxetine (CYMBALTA) 30 mg capsule Take 1 capsule by mouth once daily. montelukast (SINGULAIR) 10 mg tablet Take 1 tablet by mouth daily at bedtime. insulin aspart U-100 (NOVOLOG FLEXPEN U-100 INSULIN) 100 unit/mL (3 mL) WITH FIRST BITE OF FOOD, 30 UNITS W/BREAKFAST, 30 UNITS W/LUNCH, 30 UNITS W/DINNER; MAY ADJUST WITH SLIDING SCALE GIVEN HIGH BLOOD SUGAR flash glucose sensor (FREESTYLE DUSTY 2 SENSOR) kit Check glucose 4 times a day or more as directed. Dx: ICD10: E11.40, Z79.4. Insulin: Yes. CPAP APAP @ 13-20 cm of water with humidification. Mask (per patient preference) optional chin strap (if indicated) , filters, tubing, humidifier and lifetime supplies. EPR set at 3. (G47.33) ZHAO (obstructive sleep apnea) blood sugar diagnostic (BLOOD GLUCOSE TEST) test strip Test blood sugar(s) 4 times daily. Dx: Type 2 DM - Uncontrolled E11.65 Insulin: Yes blood sugar diagnostic (FREESTYLE LITE STRIPS) test strip Test blood sugar(s) 4 to 5 times times daily. Dx: Type 2 DM - Uncontrolled E11.65 Insulin: Yes budesonide (PULMICORT) 0.5 mg/2 mL nebulizer solution Use 2 mL via nebulizer once daily. omeprazole (PRILOSEC) 20 mg capsule Take 1 capsule by mouth daily before breakfast. 1/2 hr before meal. As directed. cyclobenzaprine (FLEXERIL) 10 mg tablet Take 0.5-1 tablets by mouth twice daily as needed. nystatin (MYCOSTATIN) cream Apply 1 application to affected area twice daily as needed. Cholecalciferol, Vitamin D3, 25 mcg (1,000 unit) cap Takes 1600 to 2000 units daily with supplement OTC insulin glargine (LANTUS SOLOSTAR U-100 INSULIN) 100 unit/mL (3 mL) Inject 120 Units subcutaneously daily at bedtime. Please dispense 15 pens (3 boxes at a time). fluconazole (DIFLUCAN) 150 mg tablet Take by mouth. Take at onset of yeast infection. Repeat after 5 to 7 days if ongoing symptoms. May treat recurrent episodes as needed. flash glucose scanning reader (FREESTYLE DUSTY 2 READER) Check glucose 4 times a day or more as directed. Dx: ICD10: E11.40, Z79.4. Insulin: Yes. omega-3/dha/epa/dpa/fish oil (OMEGA-3 2100 ORAL) Take 1 tablet by mouth twice daily. ascorbic acid (VITAMIN C ORAL) Take 3,000 Units by mouth once daily. Insulin [place], Disposable, (BD INSULIN PEN NEEDLE UF) 29 gauge x 1/2 Use 1 Needle For Each Dose 3-4 Times Daily With Novolog Pen For Meals and At Bedtime if Needed Blood-Glucose Meter (FREESTYLE LITE METER) monitoring kit Check blood sugars as directed for controlled Type 2 DM without complication mupirocin (BACTROBAN) 2 % ointment Apply 1 application to affected area three times daily. Location: torso wounds as directed till healed COMPOUNDED PRESCRIPTION CPAP supplies--mask per patient preference, tubing, humidifier as needed. G47.33, Z99.89 ZHAO on CPAP Blood-Glucose Meter monitoring kit Glucose Meter of Choice (covered by [employer]) - Kit - Dx: Type 2 DM - Uncontrolled E11.65, Insulin Yes Incontinence Pad, Liner, Disp pads Change pad 3 to 5 times daily. N39.46 Lancets (FREESTYLE LANCETS) lancets tests sugar 4 to 6 times daily DX:250.02 Insulin dependent (this is corrected RX) Cane Misc [place] 1 Each. Diagnosis: 724.2 Back pain (Patient taking differently: 1 Each as needed. Diagnosis: 724.2 Back pain) semaglutide, weight loss, (WEGOVY) 0.25 mg/0.5 mL pen injector Inject 0.5 mL subcutaneously one time a week. (Patient not taking: Reported on 02/09/2023) meloxicam (MOBIC) 15 mg tablet Take 1 tablet by mouth once daily. (Patient not taking: Reported on 01/29/2023) albuterol HFA (VENTOLIN HFA) 90 mcg/actuation inhaler Inhale 2 Puffs as instructed every 4 hours as needed for wheezing/shortness of breath. (Patient not taking: Reported on 04/27/2023) albuterol (PROVENTIL) 2.5 mg /3 mL (0.083 %) nebulizer solution Use 3 mL via nebulizer every 4 hours as needed for wheezing/shortness of breath. Use over 5-15minutes. (Patient not taking: Reported on 04/27/2023) hydroCHLOROthiazide (HYDRODIURIL, ESIDRIX) 25 mg tablet Take 1 tablet by mouth once daily. As needed for swelling from fluid retention (Patient not taking: Reported on 04/27/2023) norethindrone (AYGESTIN) 5 mg tablet Take 1 tablet by mouth as directed. 1 tablet 3 times daily until bleeding stops then twice daily for 2 days then 1 tablet daily for 2 days. (Patient not taking: Reported on 04/27/2023) ergocalciferol 50,000 unit capsule (VITAMIN D2, DRISDOL) Take 1 capsule by mouth one time a week. (Patient not taking: Reported on 06/07/2022) COMPOUNDED PRESCRIPTION Bilateral compression Knee Hi 20-30 mm. ICD 10; 459.81; 782.3 (Patient not taking: Reported on 06/07/2022) Compression Knee Highs KNEE HIGH COMPRESSION STOCKINGS 30-40 MM. DX: (I87.8/459.81) Venous stasis (R60.0782.3) Bilateral edema of lower extremity (Patient not taking: Reported on 11/06/2022) Current Facility-Administered Medications Medication Dose Route Frequency perflutren lipid microspheres 1.3 mL in NaCl (PF) 0.9% 10 mL injection (DEFINITY) INTRAVENOUS DIRECTED PRN sodium chloride 0.9 % (flush) 10 mL (BD POSIFLUSH) 10 mL INTRAVENOUS DIRECTED PRN Review of Systems Objective BP 110/68 Pulse 80 Temp (!) 35.7 C (96.3 F) Resp 18 Wt 130.6 kg (288 lb) LMP 11/28/2020 (LMP Unknown) SpO2 98% BMI 54.42 kg/m Last 5 Encounter Wt Readings: Date: Wt: 04/27/2023 130.6 kg (288 lb) 02/09/2023 130.1 kg (286 lb 12.8 oz) 06/07/2022 127.5 kg (281 lb) 11/29/2021 127 kg (280 lb) 07/29/2021 130.6 kg (288 lb) No waist measurement recorded Estimated body mass index is 54.42 kg/m as calculated from the following: Height as of 07/29/21: 154.9 cm (5' 1). Weight as of this encounter: 130.6 kg (288 lb). Last 5 Encounter BP Readings: Date: BP: 04/27/2023 110/68 02/09/2023 128/72 11/08/2022 153/81 06/07/2022 112/66 11/29/2021 118/64 Physical Exam Constitutional: Appearance: Normal appearance. HENT: Head: Normocephalic. Eyes: Conjunctiva/sclera: Conjunctivae normal. Cardiovascular: Rate and Rhythm: Normal rate and regular rhythm. Heart sounds: Normal heart sounds. Pulmonary: Effort: Pulmonary effort is normal. Breath sounds: Normal breath sounds. Skin: General: Skin is warm and dry. Neurological: General: No focal deficit present. Mental Status: She is alert and oriented to person, place, and time. Psychiatric: Mood and Affect: Mood normal. Behavior: Behavior normal. Thought Content: Thought content normal. Judgment: Judgment normal. Component Latest Ref Rng & Units 06/20/2021 11/29/2021 11/29/2022 02/09/2023 WBC 3.70 - 11.00 k/uL 8.79 RBC 3.90 - 5.20 m/uL 4.78 Hemoglobin 11.5 - 15.5 g/dL 14.3 Hematocrit 36.0 - 46.0 % 44.5 MCV 80.0 - 100.0 fL 93.1 MCH 26.0 - 34.0 pg 29.9 MCHC 30.5 - 36.0 g/dL 32.1 RDW-CV 11.5 - 15.0 % 13.2 Platelet Count 150 - 400 k/uL 257 MPV 9.0 - 12.7 fL 9.2 Neut% % 69.6 Abs Neut (ANC) 1.45 - 7.50 k/uL 6.13 Lymph% % 20.3 Abs Lymph 1.00 - 4.00 k/uL 1.78 [place]% % 7.6 Abs [place] <0.87 k/uL 0.67 Eosin% % 1.4 Abs Eosin <0.46 k/uL 0.12 Baso% % 0.5 Abs Baso <0.11 k/uL 0.04 Immature Gran % % 0.6 IMMATURE GRANS (ABS) <0.10 k/uL 0.05 NRBC /100 WBC 0.0 Absolute nRBC <0.01 k/uL <0.01 DTYPE Auto Protein, Total 6.3 - 8.0 g/dL 7.2 7.1 Albumin 3.9 - 4.9 g/dL 4.3 4.1 Calcium 8.5 - 10.2 mg/dL 9.8 Bilirubin, Total 0.2 - 1.3 mg/dL 0.3 0.4 Alkaline Phosphatase 34 - 123 U/L 90 76 AST 13 - 35 U/L 20 30 ALT 7 - 38 U/L 19 29 Glucose 74 - 99 mg/dL 132 (H) BUN 7 - 21 mg/dL 12 Creatinine 0.58 - 0.96 mg/dL 0.68 Sodium 136 - 144 mmol/L 140 Potassium 3.7 - 5.1 mmol/L 4.3 Chloride 97 - 105 mmol/L 104 CO2 22 - 30 mmol/L 25 Anion Gap 9 - 18 mmol/L 11 eGFR >=60 mL/min/1.73m 104 Cholesterol, Total <200 mg/dL 127 Triglyceride <150 mg/dL 96 HDL Cholesterol >39 mg/dL 35 (L) Non HDL Cholesterol <130 mg/dL 92 Fasting Time hrs 12 VLDL Cholesterol <30 mg/dL 19 TC:HDL Ratio <5.10 3.63 LDL Cholesterol <100 mg/dL 73 LDL:HDL Ratio <2.54 2.09 Bilirubin, Conjug <0.2 mg/dL <0.2 Creatinine, Ur Random (UCRR) 20.0 - 300.0 mg/dL 53.4 261.7 Albumin, Urine Random mg/L <12.0 30.4 Albumin/Creat Ratio <30 mg/g Not calculated 12 Hemoglobin A1C 4.3 - 5.6 % 8.2 (H) 7.3 (H) 7.5 (H) Estimated Average Glucose mg/dL 189 163 169 Magnesium 1.7 - 2.3 mg/dL 2.2 NT Pro BNP <125 pg/mL 52 Component Vitamin D 25 Hydroxy Latest Ref Rng & Units 31.0 - 80.0 ng/mL 06/18/2018 12.7 (L) 06/05/2019 18.2 (L) 07/23/2020 28.8 (L) 10/19/2020 26.7 (L) 12/14/2020 22.7 (L) 09/07/2022 40.9 Assessment and Plan Encounter Diagnosis ICD-10-CM 1. Type 2 diabetes mellitus with diabetic neuropathy, with long-term current use of insulin ([facility]) E11.40 CONSULT TO ENDOCRINOLOGY Z79.4 Continue prsent meds. Keep wokring on diet and exercise as able 2. ZHAO (obstructive sleep apnea) G47.33 CPAP needs CPAP supplies and maybe new CPAP, depending on supplier with her insurance 3. Drug-induced constipation K59.03 Higher dose Ozempic caused constipation. Discussed management 4. Chronic cough R05.3 Multifactorial. Work on treating all the common causes of chronic cough--asthma, LPRD, rhinitis. Further eval and treatment as indicated 5. Class 3 severe obesity due to excess calories with serious comorbidity and body mass index (BMI) of 50.0 to 59.9 in adult ([facility]) E66.01 CONSULT TO ENDOCRINOLOGY Z68.43 6. Shortness of breath R06.02 Triggered with exercise but also at rest with eating or drinking anything. Suspect asthma and LPRD contribute; also morbid obesity. Continue present management 7. Need for vaccination Z23 PNEUMOCOCCAL VACCINE (PREVNAR 20) Above issues addressed with patient. Patient involved in shared decision making for management of medical issues. History and medications reviewed. Epic updated as needed Refills and/or prescriptions taken care of and meds adjusted as indicated after reviewed history, exam and labs. Health Maintenance reviewed. Updated record and/or ordered tests as recorded. Encouraged on efforts at healthy diet and regular exercise and adequate sleep. Needs to keep working on diet and exercise with lifestyle changes for effective weight loss as well as control of DM, and control of BP and lipids. Aurora Macdonald MD documented in this encounter [facility] 04-17-2023 Miscellaneous Notes Patient has been identified by name and date of : Yes Patient phones for refill(s): Requested Prescriptions Pending Prescriptions Disp Refills atenolol (TENORMIN) 25 mg tablet [Pharmacy Med Name: ATENOLOL 25 MG TABLET] 90 tablet 3 Sig: take 1 tablet by mouth once daily as directed Date of last office visit in primary care: 06/07/2022 Date of next office visit in primary care: 04/27/2023 Last 2 Encounter Wt Readings: Date: Wt: 02/09/2023 130.1 kg (286 lb 12.8 oz) 06/07/2022 127.5 kg (281 lb) Previous labs/tests for medication: Blood Pressure: BUN (mg/dL) Date Value 02/09/2023 12 12/14/2020 10 Sodium (mmol/L) Date Value 02/09/2023 140 12/14/2020 139 Last 1 Encounter BP Readings: Date: BP: 02/09/2023 128/72 Please advise. Thank you. Cehrelle Malin LPN. Patient calls to request prescription be sent to [facility]. Having trouble with [facility]. Last OV: 02/09/2023 Next OV: 04/27/2023 Patient has 2 day supply left. Pari Oliver RN documented in this encounter [facility] 03-28-2023 Miscellaneous Notes Patient is asking to have rx sent to [facility] [place] please. Ok, noted, can send script where she prefers. Pt would like rx for generic Novolog to be sent to [facility]. Brittanie Barrera LPN Spoke to patient. Patient states that it's not Novolog they can't get it's aspart. Tried to explain they are the same but she states her insurance only pays for the aspart not the Novolog. Patient states she is already checking other pharmacies for the insulin and will let us know who or if any pharmacies have the insulin. In closing patient states she would prefer to talk to either Dr Macdonald or Darlene Benavides office. Please route information to Darlene Davies's office when she calls back Can this be sent to another pharmacy so she doesn't have to change medications? [facility] called in and reports the Novolog Flexpens are on back order. They said they just gave the Pt a box of them, but that will only last her about 15 days. The pharmacy is asking what the provider would like to order in place of this medication. Please send in new Rx to [facility] in [place]. documented in this encounter [facility] 02-12-2023 Miscellaneous Notes Pt informed, verbalized understanding. Maria Esther Shepherd Please call patient and let her know that lab work looks great!! No acute concerns. Heart failure marker (NT BNP) is normal. A1c is stable at 7.5 but is still above goal. Needs DM follow-up appointment with PCP team as discussed. Thank you, Carmela Nathan APRN.TOOL ROOM MACHINIST documented in this encounter [facility] 02-09-2023 History of Present illness Narrative Radiology Service Progress Note PATIENT NAME: Malathi Zambrano DATE OF SERVICE: February 09, 2023 TIME: 12:32 PM PATIENT IDENTITY VERIFICATION COMPLETED USING TWO (2) IDENTIFIERS: Name and Date of confirmed by patient verbally. FALL SCREENING: Has the patient had 2 falls in the last year or 1 fall with injury or currently using an Ambulatory Assistive Device (Walker, Cane, Wheelchair, Crutches, etc.)? No PATIENT GENDER DATA: Female. status: : No status: NO. PATIENT RELEVANT IMPLANT DATA REVIEWED: Not Applicable RADIOLOGY DEPARTMENT: General X-ray: Exam(s) Completed: Chest X-Ray PERIPHERAL IV DATA: Not applicable SIGNED BY: RT Zacarias(R) February 09, 2023 12:32 PM documented in this encounter [facility] 02-09-2023 Instructions Carmela Nathan APRN.FERN - 02/09/2023 11:39 AM EDT Chest x-ray today. Blood work today. EKG in office. Schedule ECHO Schedule and establish with cardiology. Follow-up in 1 month with PCP team. documented in this encounter [facility] 02-09-2023 History of Present illness Narrative Chief Complaint Patient presents with: edema, fatigue, out of breath easier than normal: Been worse in past 6 months HPI Malathi Zambrano is a 52 year old female who presents here today for Above Complaints. Malathi is an established patient of Dr. Elissa MD. She is a new patient to me today. Concerns today... Thinks she has heart failure. CPAP is not working as well as it used to. Unable to lay down without extreme SOB. Walks 10 steps and out of breath completely. Constantly tired and weak. Symptoms started about 6 months ago and progressively worsening. Mild swelling in hands and legs intermittently, R side > L side. Prescribed HCTZ prn -- taking about 2x per week for the last 6 months. BP stable and WNL. No statin or cholesterol medication. Stress test in 2020-- exercise/treadmill but not very accurate due to unable to tolerate treadmill after 2 minutes. ECHO in 2020 as well. Has seen cardiology but only for surgery clearance for bariatric surgery -- clearance given but never had surgery. No other concerns or complaints. Past medical history, appointments, medications, allergies reviewed. Previous Medical History PAST MEDICAL HISTORY Diagnosis Date Abdominal pain, left upper quadrant Abdominal pain, unspecified site Acquired spondylolisthesis 07/25/2010 Acute gastritis without mention of hemorrhage Arthritis Asthma Calcaneal spur 10/15/2009 COPD (chronic obstructive pulmonary disease) ([facility]) Cough DEPRESSIVE DISORDER NEC 06/15/2007 Depressive disorder, not elsewhere classified Diabetes mellitus without mention of complication Diabetes mellitus Diabetes mellitus without mention of complication Diabetes mellitus type 2 Displacement of lumbar intervertebral disc without myelopathy 12/30/2009 Esophageal reflux 10/01/2006 Esophagitis, unspecified Fibromyalgia 07/25/2010 Generalized anxiety disorder Anxiety, Generalized Hemorrhage of gastrointestinal tract, unspecified Hypertension Internal hemorrhoids without mention of complication Left carpal tunnel syndrome 09/11/2013 Lumbago 08/05/2008 Migraine 03/02/2009 Mixed stress and urge urinary incontinence Myalgia and myositis, unspecified Obesity, unspecified Obesity ZHAO (obstructive sleep apnea) 05/01/2011 uses C-PAP PMH - PAST MEDICAL HISTORY OF allergic syndrome; gets allergy shots PMH - PAST MEDICAL HISTORY OF bipolar Psoriasis and similar disorders Sleep apnea Spondylolysis, 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 Grissom saw in the past Vitamin D deficiency 11/29/2010 on calcitriol Previous Surgical History PAST SURGICAL HISTORY Procedure Laterality Date ABDOMINAL SURGERY HX DELIVERY ONLY 2001,2003 COLONOSCOPY FLX DX W/COLLJ SPEC WHEN PFRMD 02/05/2015 Colonoscopy out pt [facility] D+C 01/27/2021 IUD insertion- BENIGN PATHOLOGY EGD TRANSORAL BIOPSY SINGLE/MULTIPLE 05/02/2006 ESOPHAGOGASTRODUODENOSCOPY TRANSORAL DIAGNOSTIC 02/05/2015 EGD out pt [facility] ESOPHAGOGASTRODUODENOSCOPY TRANSORAL DIAGNOSTIC 01/13/2019 EGD HYSTEROSCOPY BX ENDOMETRIUM&/POLYPC W/WO D&C 08/08/2018 AUB, menorrhagia INCISE FINGER TENDON SHEATH Left 08/18/2021 Left trigger thumb release INCISION EXTENSOR TENDON SHEATH WRIST Right 11/17/2020 Right wrist 1st dorsal compartment release, synovectomy, 2nd dorsal release MIRENA IUD 01/27/2021 insertion PAST SURGICAL HISTORY OF 07/2005 carpal tunnel right hand PAST SURGICAL HISTORY OF 1973 upper lip - plastic surgery. PAST SURGICAL HISTORY OF 2010 right plantar fasciectomy [facility] N/CARPAL TUNNEL SURG Right 01/18/2023 [facility] COSMETIC SURGERY SIGMOIDOSCOPY FLX DX W/COLLJ SPEC BR/WA IF PFRMD 05/22/2006 Family History FAMILY HISTORY Problem Relation Age of Onset Diabetes Mother Asthma Mother Heart Mother Brain Cancer Mother Cancer Father AT 71 R/T BLADDER Heart Father Asthma Sister other (ulcers) Sister Lung Cancer Sister Patient Allergies ALLERGIES Allergen Reactions Losartan Intolerance dizziness; tried in the past; even lowest dose causes dizziness Vicodin [Hydrocodon* GI Upset Amlodipine Intolerance Headache and stomach issues Codeine Antitussive* GI Upset Latex Rash reddness itching Lisinopril Cough Metformin GI Upset GI upset Relafen [Nabumetone] GI Upset Current Medications Current Outpatient Medications on File Prior to Visit Medication Sig semaglutide, weight loss, (WEGOVY) 0.25 mg/0.5 mL pen injector Inject 0.5 mL subcutaneously one time a week. flash glucose sensor (FREESTYLE DUSTY 2 SENSOR) kit Check glucose 4 times a day or more as directed. Dx: ICD10: E11.40, Z79.4. Insulin: Yes. meloxicam (MOBIC) 15 mg tablet Take 1 tablet by mouth once daily. (Patient not taking: Reported on 01/29/2023) CPAP APAP @ 13-20 cm of water with humidification. Mask (per patient preference) optional chin strap (if indicated) , filters, tubing, humidifier and lifetime supplies. EPR set at 3. (G47.33) ZHAO (obstructive sleep apnea) blood sugar diagnostic (BLOOD GLUCOSE TEST) test strip Test blood sugar(s) 4 times daily. Dx: Type 2 DM - Uncontrolled E11.65 Insulin: Yes blood sugar diagnostic (FREESTYLE LITE STRIPS) test strip Test blood sugar(s) 4 to 5 times times daily. Dx: Type 2 DM - Uncontrolled E11.65 Insulin: Yes insulin aspart U-100 (NOVOLOG FLEXPEN U-100 INSULIN) 100 unit/mL (3 mL) WITH FIRST BITE OF FOOD, 30 UNITS W/BREAKFAST, 30 UNITS W/LUNCH, 30 UNITS W/DINNER; MAY ADJUST WITH SLIDING SCALE GIVEN HIGH BLOOD SUGAR atenolol (TENORMIN) 25 mg tablet Take 1 tablet by mouth once daily. As directed albuterol HFA (VENTOLIN HFA) 90 mcg/actuation inhaler Inhale 2 Puffs as instructed every 4 hours as needed for wheezing/shortness of breath. albuterol (PROVENTIL) 2.5 mg /3 mL (0.083 %) nebulizer solution Use 3 mL via nebulizer every 4 hours as needed for wheezing/shortness of breath. Use over 5-15minutes. budesonide (PULMICORT) 0.5 mg/2 mL nebulizer solution Use 2 mL via nebulizer once daily. omeprazole (PRILOSEC) 20 mg capsule Take 1 capsule by mouth daily before breakfast. 1/2 hr before meal. As directed. cyclobenzaprine (FLEXERIL) 10 mg tablet Take 0.5-1 tablets by mouth twice daily as needed. montelukast (SINGULAIR) 10 mg tablet Take 1 tablet by mouth daily at bedtime. hydroCHLOROthiazide (HYDRODIURIL, ESIDRIX) 25 mg tablet Take 1 tablet by mouth once daily. As needed for swelling from fluid retention nystatin (MYCOSTATIN) cream Apply 1 application to affected area twice daily as needed. Cholecalciferol, Vitamin D3, 25 mcg (1,000 unit) cap Takes 1600 to 2000 units daily with supplement OTC DULoxetine (CYMBALTA) 30 mg capsule Take 1 capsule by mouth once daily. insulin glargine (LANTUS SOLOSTAR U-100 INSULIN) 100 unit/mL (3 mL) Inject 120 Units subcutaneously daily at bedtime. Please dispense 15 pens (3 boxes at a time). fluconazole (DIFLUCAN) 150 mg tablet Take by mouth. Take at onset of yeast infection. Repeat after 5 to 7 days if ongoing symptoms. May treat recurrent episodes as needed. flash glucose scanning reader (FREESTShaka DUSTY 2 READER) Check glucose 4 times a day or more as directed. Dx: ICD10: E11.40, Z79.4. Insulin: Yes. norethindrone (AYGESTIN) 5 mg tablet Take 1 tablet by mouth as directed. 1 tablet 3 times daily until bleeding stops then twice daily for 2 days then 1 tablet daily for 2 days. (Patient not taking: No sig reported) omega-3/dha/epa/dpa/fish oil (OMEGA-3 2100 ORAL) Take 1 tablet by mouth twice daily. ascorbic acid (VITAMIN C ORAL) Take 3,000 Units by mouth once daily. Insulin [place], Disposable, (BD INSULIN PEN NEEDLE UF) 29 gauge x 1/2 Use 1 Needle For Each Dose 3-4 Times Daily With Novolog Pen For Meals and At Bedtime if Needed ergocalciferol 50,000 unit capsule (VITAMIN D2, DRISDOL) Take 1 capsule by mouth one time a week. (Patient not taking: No sig reported) Blood-Glucose Meter (FREESTYLE LITE METER) monitoring kit Check blood sugars as directed for controlled Type 2 DM without complication mupirocin (BACTROBAN) 2 % ointment Apply 1 application to affected area three times daily. Location: torso wounds as directed till healed (Patient not taking: No sig reported) COMPOUNDED PRESCRIPTION CPAP supplies--mask per patient preference, tubing, humidifier as needed. G47.33, Z99.89 ZHAO on CPAP Blood-Glucose Meter monitoring kit Glucose Meter of Choice (covered by [employer]) - Kit - Dx: Type 2 DM - Uncontrolled E11.65, Insulin Yes Incontinence Pad, Liner, Disp pads Change pad 3 to 5 times daily. N39.46 COMPOUNDED PRESCRIPTION Bilateral compression Knee Hi 20-30 mm. ICD 10; 459.81; 782.3 (Patient not taking: No sig reported) Compression Knee Highs KNEE HIGH COMPRESSION STOCKINGS 30-40 MM. DX: (I87.8/459.81) Venous stasis (R60.0782.3) Bilateral edema of lower extremity (Patient not taking: Reported on 11/06/2022) Lancets (FREESTYLE LANCETS) lancets tests sugar 4 to 6 times daily DX:250.02 Insulin dependent (this is corrected RX) Cane Misc [place] 1 Each. Diagnosis: 724.2 Back pain No current facility-administered medications on file prior to visit. Social History Social History Tobacco Use Smoking status: Former Types: Cigarettes Quit date: 06/04/1989 Years since quittin.7 Smokeless tobacco: Never Tobacco comments: social smoker in teens Vaping Use Vaping Use: Never used Substance Use Topics Alcohol use: No Drug use: No REVIEW OF SYSTEMS: as above Reviewed relevant PMHx, PSHx, Social Hx, current medications and allergies. Review of Symptoms REVIEW OF SYSTEMS See HPI. EXAM: BP 128/72 (BP Site: Right Arm, BP Position: Sitting, BP Cuff Size: Regular Adult) Pulse (!) 56 Temp 36.4 C (97.6 F) Wt 130.1 kg (286 lb 12.8 oz) LMP 11/28/2020 (LMP Unknown) SpO2 95% BMI 54.19 kg/m General Appearance: Well appearing, alert, in no acute distress, well-hydrated, well nourished.. Skin: Skin color, texture, turgor normal, no suspicious rashes or lesions. Head: Normocephalic, no masses, lesions, tenderness or abnormalities. Neck: Supple, no adenopathy; thyroid symmetric, normal size, no bruits. Back:no pain to palpation of vertebrae, good flexion and extension, good range of motion, no muscle tenderness, reflexes are 2+ and symmetric, motor and sensory appear to be normal, negative SLR test, no evidence of scoliosis Lungs: Lungs clear to auscultation. No wheezing, rhonchi, rales. Positive findings: tachypnea Shortness of breath: Upon exertion. Heart: RRR without murmur, gallop, or rubs. No ectopy. Health Maintenance List DTAP,TDAP,TD(1 - Tdap) due on 03/23/2007 PNEUMOCOCCAL(2 - PCV) due on 05/01/2012 MAMMOGRAM due on 09/18/2012 DIABETIC FOOT EXAM due on 11/29/2012 DILATED RETINAL EXAM due on 06/07/2021 COVID-19 VACCINE(4 - Pfizer series) due on 07/02/2021 LDL CHOLESTEROL due on 07/23/2021 COLORECTAL CANCER SCREENING due on 01/13/2022 INFLUENZA(1) due on 02/02/2023 HEPATITIS B(1 of 3 - 3-dose series) due on 06/07/2023 SHINGRIX VACCINE(1 of 2) due on 06/07/2023 HBA1C due on 03/09/2023 ANNUAL PCP TEAM CHRONIC DISEASE VISIT due on 06/07/2023 BP CONTROLLED (<130/80) due on 06/07/2023 URINE ALBUMIN:CREATININE RATIO due on 11/30/2023 PAP TESTING due on 10/28/2024 HPV TESTING due on 10/28/2024 ALPHA-1 ANTITRYPSIN DEFICIENCY SCREENING Completed SPIROMETRY Completed HEPATITIS C SCREENING Completed HIV SCREENING Completed ASSESSMENT/PLAN: 1. SOB (shortness of breath) - ICD9: 786.05, ICD10: R06.02 (primary diagnosis) Chest xray EKG in office -- NSR rate of 71. Similar to priors. ECHO Establish with cardiology. Lab work as ordered to check for heart failure. Follow-up in 1 month with PCP team. - CONSULT TO CARDIOLOGY - ECG COMPLETE - ECHO - PERFLUTREN LIPID MICROSPHERES 1.1 MG/ML INJECTION IN NS 10 ML - SODIUM CHLORIDE 0.9 % (FLUSH) INJECTION SYRINGE - COMP METABOLIC PANEL - CBC + DIFF - MAGNESIUM BLD - NT PRO BNP - XR CHEST 2V FRONTAL/LAT - LIPID PANEL BASIC 2. Type 2 diabetes mellitus with diabetic neuropathy, with long-term current use of insulin (HCC) - ICD9: 250.60, 357.2, V58.67, ICD10: E11.40, Z79.4 Routine repeat A1c -- follow-up with PCP team in 1 month. - HGB A1C RTO in 1 months, sooner if needed. Prescription instructions reviewed with patient as applicable. Potential red flag symptoms discussed with the patient. Reviewed appropriate action plan to take if red flag symptoms occur. Patient agreeable to treatment plan. Carmela Lobo APRN.TOOL ROOM MACHINIST [address] [place] [address] documented in this encounter [facility] 01-29-2023 History of Present illness Narrative Roberta Holman PA-C Department of Orthopaedics Orthopaedics [address] [facility] [address] Dept: [phone] Dept January 29, 2023 CHIEF COMPLAINT: Post Op of the Right Wrist and 1 week 4 days post op Right trigger thumb release. ASSESSMENT: M65.311 Trigger finger of right thumb (primary encounter diagnosis) SUMMARY/PLAN: Patient presents 1 week and 4 days status post right trigger thumb release. She is doing well, having some overall soreness but really not too much pain. Pain today is a 3 out of 10 aching. We discussed proper hand washing, no soaking of the operative hand. No heavy lifting, pushing or pulling with the operative hand, encourage gentle motion. We discussed scar massage. Follow up as planned. Exam: Without erythema or drainage, there is mild but appropriate edema at the base of the thumb, no ecchymosis. Patient is able to gently flex and extend the right thumb without any locking or catching. Subjective soreness at the IP joint. Imaging; Deferred today Ms. Malathi Zambrano was advised as to contrast therapies and/or to take analgesics/anti-inflammatories as needed and all contraindications were reviewed. Supporting Information Below: Medications: Current Outpatient Medications Medication Sig semaglutide, weight loss, (WEGOVY) 0.25 mg/0.5 mL pen injector Inject 0.5 mL subcutaneously one time a week. flash glucose sensor (FREESTYLE DUSTY 2 SENSOR) kit Check glucose 4 times a day or more as directed. Dx: ICD10: E11.40, Z79.4. Insulin: Yes. CPAP APAP @ 13-20 cm of water with humidification. Mask (per patient preference) optional chin strap (if indicated) , filters, tubing, humidifier and lifetime supplies. EPR set at 3. (G47.33) ZHAO (obstructive sleep apnea) blood sugar diagnostic (BLOOD GLUCOSE TEST) test strip Test blood sugar(s) 4 times daily. Dx: Type 2 DM - Uncontrolled E11.65 Insulin: Yes blood sugar diagnostic (FREESTYLE LITE STRIPS) test strip Test blood sugar(s) 4 to 5 times times daily. Dx: Type 2 DM - Uncontrolled E11.65 Insulin: Yes insulin aspart U-100 (NOVOLOG FLEXPEN U-100 INSULIN) 100 unit/mL (3 mL) WITH FIRST BITE OF FOOD, 30 UNITS W/BREAKFAST, 30 UNITS W/LUNCH, 30 UNITS W/DINNER; MAY ADJUST WITH SLIDING SCALE GIVEN HIGH BLOOD SUGAR atenolol (TENORMIN) 25 mg tablet Take 1 tablet by mouth once daily. As directed albuterol HFA (VENTOLIN HFA) 90 mcg/actuation inhaler Inhale 2 Puffs as instructed every 4 hours as needed for wheezing/shortness of breath. albuterol (PROVENTIL) 2.5 mg /3 mL (0.083 %) nebulizer solution Use 3 mL via nebulizer every 4 hours as needed for wheezing/shortness of breath. Use over 5-15minutes. budesonide (PULMICORT) 0.5 mg/2 mL nebulizer solution Use 2 mL via nebulizer once daily. omeprazole (PRILOSEC) 20 mg capsule Take 1 capsule by mouth daily before breakfast. 1/2 hr before meal. As directed. cyclobenzaprine (FLEXERIL) 10 mg tablet Take 0.5-1 tablets by mouth twice daily as needed. nystatin (MYCOSTATIN) cream Apply 1 application to affected area twice daily as needed. Cholecalciferol, Vitamin D3, 25 mcg (1,000 unit) cap Takes 1600 to 2000 units daily with supplement OTC DULoxetine (CYMBALTA) 30 mg capsule Take 1 capsule by mouth once daily. insulin glargine (LANTUS SOLOSTAR U-100 INSULIN) 100 unit/mL (3 mL) Inject 120 Units subcutaneously daily at bedtime. Please dispense 15 pens (3 boxes at a time). fluconazole (DIFLUCAN) 150 mg tablet Take by mouth. Take at onset of yeast infection. Repeat after 5 to 7 days if ongoing symptoms. May treat recurrent episodes as needed. flash glucose scanning reader (FREESTYLE DUSTY 2 READER) Check glucose 4 times a day or more as directed. Dx: ICD10: E11.40, Z79.4. Insulin: Yes. omega-3/dha/epa/dpa/fish oil (OMEGA-3 2100 ORAL) Take 1 tablet by mouth twice daily. ascorbic acid (VITAMIN C ORAL) Take 3,000 Units by mouth once daily. Insulin [place], Disposable, (BD INSULIN PEN NEEDLE UF) 29 gauge x 1/2 Use 1 Needle For Each Dose 3-4 Times Daily With Novolog Pen For Meals and At Bedtime if Needed Blood-Glucose Meter (FREESTYLE LITE METER) monitoring kit Check blood sugars as directed for controlled Type 2 DM without complication COMPOUNDED PRESCRIPTION CPAP supplies--mask per patient preference, tubing, humidifier as needed. G47.33, Z99.89 ZHAO on CPAP Blood-Glucose Meter monitoring kit Glucose Meter of Choice (covered by [employer]) - Kit - Dx: Type 2 DM - Uncontrolled E11.65, Insulin Yes Lancets (FREESTYLE LANCETS) lancets tests sugar 4 to 6 times daily DX:250.02 Insulin dependent (this is corrected RX) meloxicam (MOBIC) 15 mg tablet Take 1 tablet by mouth once daily. (Patient not taking: Reported on 01/29/2023) montelukast (SINGULAIR) 10 mg tablet Take 1 tablet by mouth daily at bedtime. hydroCHLOROthiazide (HYDRODIURIL, ESIDRIX) 25 mg tablet Take 1 tablet by mouth once daily. As needed for swelling from fluid retention norethindrone (AYGESTIN) 5 mg tablet Take 1 tablet by mouth as directed. 1 tablet 3 times daily until bleeding stops then twice daily for 2 days then 1 tablet daily for 2 days. (Patient not taking: No sig reported) ergocalciferol 50,000 unit capsule (VITAMIN D2, DRISDOL) Take 1 capsule by mouth one time a week. (Patient not taking: No sig reported) mupirocin (BACTROBAN) 2 % ointment Apply 1 application to affected area three times daily. Location: torso wounds as directed till healed (Patient not taking: No sig reported) Incontinence Pad, Liner, Disp pads Change pad 3 to 5 times daily. N39.46 COMPOUNDED PRESCRIPTION Bilateral compression Knee Hi 20-30 mm. ICD 10; 459.81; 782.3 (Patient not taking: No sig reported) Compression Knee Highs KNEE HIGH COMPRESSION STOCKINGS 30-40 MM. DX: (I87.8/459.81) Venous stasis (R60.0782.3) Bilateral edema of lower extremity (Patient not taking: Reported on 11/06/2022) Cane Misc [place] 1 Each. Diagnosis: 724.2 Back pain No current facility-administered medications for this visit. Allergies: Losartan, Vicodin [Hydrocodone-Acetaminophen], Amlodipine, Codeine Antitussive Cough, Latex, Lisinopril, Metformin, and Relafen [Nabumetone] This note was partially generated using [employer] voice recognition system, and there may be some incorrect words, spellings, and punctuation that were not noted in checking the note before saving. Roberta Holman PA-C Patient presents with: Right Wrist - Post Op 1 week 4 days post op Right CTR AMB ROOMING INTAKE FLOWSHEET DATA Pain Pain Level: 3 Pain Location: Hand-Right Description: Incision, Sore, Stiffness, Tightness Duration Units: Days Frequency: Intermittent Intervention/Comfort measure: Cold Patient states she bumped her hand yesterday and had some increased soreness. Took Tylenol for the pian and helped. Sutures intact. No redness or drainage. documented in this encounter [facility] 01-01-2023 Miscellaneous Notes Last OV: 06/07/22 - No future appts scheduled. Patient has been identified by name and date of : Yes Requested Prescriptions Pending Prescriptions Disp Refills flash glucose sensor (FREESTYLE DUSTY 2 SENSOR) kit 3 Each 3 Sig: Check glucose 4 times a day or more as directed. Dx: ICD10: E11.40, Z79.4. Insulin: Yes. RX INSTRUCTIONS: Patient aware RX will be sent to pharmacy. No need to notify patient. Brittanie Barrera LPN documented in this encounter [facility] 12-06-2022 Miscellaneous Notes Surgery has been moved to 01/18/2023 as requested. Called and spoke with patient. Patient cancelled surgery scheduled on 12/21/22 and rescheduled on 01/18/23. Case message sent to [facility] PSR pool. Post op appointments rescheduled and mailed to patient. Patient requesting a phone call to discuss the possibility of changing her upcoming surgical date. She is anticipating a child's nurse issue. She asked to be transferred to a direct line and was upset when that was denied due to nurses running clinic at that time. Please return her call. Thank You, Malathi Velazquez MA documented in this encounter [facility] 11-08-2022 Miscellaneous Notes Surgery has been scheduled as requested. Patient scheduled for Right trigger thumb release on 12/21/2022. Surgical request completed. Post op appointments scheduled and mailed to patient. documented in this encounter [facility] 11-06-2022 Miscellaneous Notes Done. Patient calling to request order for Urine Albumin/Creatine Ratio be re-ordered. It's and she will be here today for an appointment. Kimi Richard RN documented in this encounter [facility] 11-06-2022 History of Present illness Narrative Associated Order(s): Large Joint Arthro/Inj: R subacromial bursa Post-Procedure Diagnose(s): Shoulder impingement; Calcific tendonitis of right shoulder Vincenzo Fonseca MD Department of Orthopaedics Orthopaedics [address] [facility] [address] Dept: [phone] Dept November 06, 2022 CHIEF COMPLAINT: Established Patient of the Right Shoulder, Established Patient of the Right Wrist, and 8 weeks 3 days post visit with Roberta right wrist (with injection given and right shoulder pain. ) HPI Patient here for right trigger thumb and right shoulder pain. Patient states her thumb has been locking and has to help open it. She is also having right shoulder pain. No specific injury. She is having difficulty raising her outward. Taking Tylenol during the daytime and helps, but at night she is having difficulty sleeping due to the pain. Ibuprofen helps but upsets her stomach. She has tried ice as well and helped. X-rays of her shoulder done today. ASSESSMENT: M25.819 Shoulder impingement (primary encounter diagnosis) M75.31 Calcific tendonitis of right shoulder PLAN: Meloxicam, PT and a cortisone injection today. Ms. Malathi Zambrano was advised as to contrast therapies and/or to take analgesics/anti-inflammatories as needed and all contraindications were reviewed. OBJECTIVE: Ms. Malathi Zambrano is a pleasant 52 year old in no apparent distress. Gen:LMP 11/28/2020 nl development, morbidly obese , no deformities ENT: Normocephalic, normal hearing, moist mucosa CV: Pulses:Radial= 2+ and symmetric, capillary refill < 2 secs, no peripheral edema/varicosities Skin: no rash, bruising or lesions. Good turgor. Psych: cooperative and appropriate, alert and oriented x 3, good mood and affect. Musculoskeletal: Supple range of motion of the cervical spine without pain. Spurling signs are negative. No atrophy of the deltoid and shoulder musculature. Right shoulder is nontender to palpation over the SC joint, clavicle and AC joint. no tenderness to palpation over the posterior shoulder, tender to palpation over the anterior lateral corner of the shoulder and greater tuberosity. Non painful at the bicipital groove and coracoid. Active range of motion is 150 of forward elevation, 50 external rotation, and internal rotation to the low lumbar. Passive range of motion is symmetrical, respectively. No laxity with anterior and posterior stress. positive Neer and Berry impingement signs. 4/5 strength with supraspinatus, infraspinatus and subscapularis. Sensation is intact in the axillary, radial, median and ulnar nerve distribution In addition to the comprehensive evaluation, assessment and plan outlined above, and as a distinct and separate element to the visit today, separate from a PT consult order, we have made the determination to proceed with an injection to aid in the management of the patient's condition. We discussed the risks, benefits, alternatives and expected outcomes of this injection in detail, and the patient agreed to proceed. The procedure was performed as detailed below. Large Joint Arthro/Inj: R subacromial bursa Informed Consent Consent Obtained: Verbal Ralph Protocol A moment to CARE was completed. SIGN IN Sign in communication not applicable due to emergent procedure. Personnel directly involved with the procedure wore the appropriate PPE. Special Equipment: N/A Patient/Surrogate Stated/Verified: Patient name, Date of , Relevant allergies and Intended procedure TIME OUT Intended patient and procedure match the source document(s). Consent documented and matches the intended procedure. Relevant labs, photos, and/or imaging studies have been reviewed. Correct side/site marked and visible. Medications required for procedure verified. No fire risk assessment and interventions applicable. No implant(s) inserted. 11/06/2022 4:42 PM The procedure site was prepped in the usual sterile fashion. Site: R subacromial bursa Medications: 6 mg betamethasone acetate-betamethasone sodium phosphate 6 mg/mL Anesthetics: 4 mL lidocaine (PF) 10 mg/mL (1 %) Outcome: Tolerated well, no immediate complications Post-injection instructions were reviewed with the patient and the patient voiced understanding of these instructions. SIGN OUT All instruments, equipment, possible retained foreign bodies accounted for. Imaging: IMPRESSION: MILD DEGENERATIVE CHANGE. CALCIFIC TENDINITIS OF THE SUPRASPINATUS Lithographed Plate Inspector: ELIZA Transcribe Date/Time: Nov 07 2022 11:16A Dictated by : SHAWNA LOPEZ MD This examination was interpreted and the report reviewed and electronically signed by: SHAWNA LOPEZ MD on Nov 07 2022 11:45AM EST Results-Findings * * *Final Report* * * DATE OF EXAM: Nov 06 2022 3:31PM WRX [id number] - XR SHLDR >/=3V AP/HARSHIL AP/OTHR RT / PROCEDURE REASON: Right shoulder pain, unspecified chronicity * * * * Physician Interpretation * * * * Examination: XR SHLDR >/=3V AP/HARSHIL AP/OTHR RT History: Right shoulder pain, unspecified chronicity Technique: XR SHLDR >/=3V AP/HARSHIL AP/OTHR RT Comparison: None RESULT: Mild acromioclavicular degenerative change. Calcification of the supraspinatus tendon. Diffuse osteopenia. No fracture or focal bony abnormality. Normal alignment. Supporting Subjective Information Below: Past Surgical History: PAST SURGICAL HISTORY Procedure Laterality Date ABDOMINAL SURGERY HX DELIVERY ONLY 2001,2003 COLONOSCOPY FLX DX W/COLLJ SPEC WHEN PFRMD 02/05/2015 Colonoscopy out pt [facility] D+C 01/27/2021 IUD insertion- BENIGN PATHOLOGY EGD TRANSORAL BIOPSY SINGLE/MULTIPLE 05/02/2006 ESOPHAGOGASTRODUODENOSCOPY TRANSORAL DIAGNOSTIC 02/05/2015 EGD out pt [facility] ESOPHAGOGASTRODUODENOSCOPY TRANSORAL DIAGNOSTIC 01/13/2019 EGD HYSTEROSCOPY BX ENDOMETRIUM&/POLYPC W/WO D&C 08/08/2018 AUB, menorrhagia INCISE FINGER TENDON SHEATH Left 08/18/2021 Left trigger thumb release INCISION EXTENSOR TENDON SHEATH WRIST Right 11/17/2020 Right wrist 1st dorsal compartment release, synovectomy, 2nd dorsal release MIRENA IUD 01/27/2021 insertion PAST SURGICAL HISTORY OF 07/2005 carpal tunnel right hand PAST SURGICAL HISTORY OF 1973 upper lip - plastic surgery. PAST SURGICAL HISTORY OF 2010 right plantar fasciectomy [facility] COSMETIC SURGERY SIGMOIDOSCOPY FLX DX W/COLLJ SPEC BR/WA IF PFRMD 05/22/2006 Medications: Current Outpatient Medications Medication Sig CPAP APAP @ 13-20 cm of water with humidification. Mask (per patient preference) optional chin strap (if indicated) , filters, tubing, humidifier and lifetime supplies. EPR set at 3. (G47.33) ZHAO (obstructive sleep apnea) semaglutide (OZEMPIC) 0.25 mg or 0.5 mg (2 mg/3 mL) pen Inject 0.5 mg subcutaneously one time a week. blood sugar diagnostic (BLOOD GLUCOSE TEST) test strip Test blood sugar(s) 4 times daily. Dx: Type 2 DM - Uncontrolled E11.65 Insulin: Yes flash glucose sensor (FREESTYLE DUSTY 2 SENSOR) kit Check glucose 4 times a day or more as directed. Dx: ICD10: E11.40, Z79.4. Insulin: Yes. blood sugar diagnostic (FREESTYLE LITE STRIPS) test strip Test blood sugar(s) 4 to 5 times times daily. Dx: Type 2 DM - Uncontrolled E11.65 Insulin: Yes insulin aspart U-100 (NOVOLOG FLEXPEN U-100 INSULIN) 100 unit/mL (3 mL) WITH FIRST BITE OF FOOD, 30 UNITS W/BREAKFAST, 30 UNITS W/LUNCH, 30 UNITS W/DINNER; MAY ADJUST WITH SLIDING SCALE GIVEN HIGH BLOOD SUGAR atenolol (TENORMIN) 25 mg tablet Take 1 tablet by mouth once daily. As directed ibuprofen (MOTRIN) 800 mg tablet Take 1 tablet by mouth every 8 hours as needed for pain. albuterol HFA (VENTOLIN HFA) 90 mcg/actuation inhaler Inhale 2 Puffs as instructed every 4 hours as needed for wheezing/shortness of breath. albuterol (PROVENTIL) 2.5 mg /3 mL (0.083 %) nebulizer solution Use 3 mL via nebulizer every 4 hours as needed for wheezing/shortness of breath. Use over 5-15minutes. budesonide (PULMICORT) 0.5 mg/2 mL nebulizer solution Use 2 mL via nebulizer once daily. omeprazole (PRILOSEC) 20 mg capsule Take 1 capsule by mouth daily before breakfast. 1/2 hr before meal. As directed. cyclobenzaprine (FLEXERIL) 10 mg tablet Take 0.5-1 tablets by mouth twice daily as needed. nystatin (MYCOSTATIN) cream Apply 1 application to affected area twice daily as needed. Cholecalciferol, Vitamin D3, 25 mcg (1,000 unit) cap Takes 1600 to 2000 units daily with supplement OTC DULoxetine (CYMBALTA) 30 mg capsule Take 1 capsule by mouth once daily. insulin glargine (LANTUS SOLOSTAR U-100 INSULIN) 100 unit/mL (3 mL) Inject 120 Units subcutaneously daily at bedtime. Please dispense 15 pens (3 boxes at a time). fluconazole (DIFLUCAN) 150 mg tablet Take by mouth. Take at onset of yeast infection. Repeat after 5 to 7 days if ongoing symptoms. May treat recurrent episodes as needed. flash glucose scanning reader (FREESTYLE DUSTY 2 READER) Check glucose 4 times a day or more as directed. Dx: ICD10: E11.40, Z79.4. Insulin: Yes. omega-3/dha/epa/dpa/fish oil (OMEGA-3 2100 ORAL) Take 1 tablet by mouth twice daily. ascorbic acid (VITAMIN C ORAL) Take 3,000 Units by mouth once daily. Insulin [place], Disposable, (BD INSULIN PEN NEEDLE UF) 29 gauge x 1/2 Use 1 Needle For Each Dose 3-4 Times Daily With Novolog Pen For Meals and At Bedtime if Needed Blood-Glucose Meter (FREESTYLE LITE METER) monitoring kit Check blood sugars as directed for controlled Type 2 DM without complication COMPOUNDED PRESCRIPTION CPAP supplies--mask per patient preference, tubing, humidifier as needed. G47.33, Z99.89 ZHAO on CPAP Blood-Glucose Meter monitoring kit Glucose Meter of Choice (covered by [facility]) - Kit - Dx: Type 2 DM - Uncontrolled E11.65, Insulin Yes Lancets (FREESTYLE LANCETS) lancets tests sugar 4 to 6 times daily DX:250.02 Insulin dependent (this is corrected RX) montelukast (SINGULAIR) 10 mg tablet Take 1 tablet by mouth daily at bedtime. hydroCHLOROthiazide (HYDRODIURIL, ESIDRIX) 25 mg tablet Take 1 tablet by mouth once daily. As needed for swelling from fluid retention (Patient not taking: No sig reported) norethindrone (AYGESTIN) 5 mg tablet Take 1 tablet by mouth as directed. 1 tablet 3 times daily until bleeding stops then twice daily for 2 days then 1 tablet daily for 2 days. (Patient not taking: No sig reported) diclofenac (VOLTAREN) 1 % topical gel Apply 2 g to affected area four times daily. (Patient not taking: No sig reported) ergocalciferol 50,000 unit capsule (VITAMIN D2, DRISDOL) Take 1 capsule by mouth one time a week. (Patient not taking: No sig reported) mupirocin (BACTROBAN) 2 % ointment Apply 1 application to affected area three times daily. Location: torso wounds as directed till healed (Patient not taking: No sig reported) Incontinence Pad, Liner, Disp pads Change pad 3 to 5 times daily. N39.46 COMPOUNDED PRESCRIPTION Bilateral compression Knee Hi 20-30 mm. ICD 10; 459.81; 782.3 (Patient not taking: No sig reported) Compression Knee Highs KNEE HIGH COMPRESSION STOCKINGS 30-40 MM. DX: (I87.8/459.81) Venous stasis (R60.0782.3) Bilateral edema of lower extremity (Patient not taking: Reported on 11/06/2022) Cane Misc [place] 1 Each. Diagnosis: 724.2 Back pain No current facility-administered medications for this visit. Allergies: Losartan, Vicodin [Hydrocodone-Acetaminophen], Amlodipine, Codeine Antitussive Cough, Latex, Lisinopril, Metformin, and Relafen [Nabumetone] ROS: General (negative for fatigue, malaise, weight loss/gain) HEENT (negative for headache, earache, recent vision changes, sinus pain, sore throat) Respiratory (no recent shortness of breath, hemoptysis) CV (negative for chest tightness, palpitations) Musculoskeletal (see HPI) Psych (no depression, anxiety) Vincenzo Fonseca MD documented in this encounter [facility] 10-17-2022 Miscellaneous Notes Pratibha with [facility] aware of PCP recommendations for patient using [facility] Ventilator and follow up care. Melody will contact patient Pulmonary provider. Kera Madrid LPN Let Melody (Pratibha) know that will need to refer to pulmonary medicine provider to manage the Ember ventilator per Dr. Rodrigez. If he does not manage, then since I do not manage more than CPAP and BiPAP and APAP, I do not think I should manage the Ember ventilator primarily and should refer to pulmonary medicine as well. Pratibha is dropping off the order form today 10-16-22. Sue Marcial LPN I am not familiar with this Ember ventilator machine. Will run this by sleep medicine provider if okay for me to order or if needs seen by sleep medicine. Pratibha from [facility] calling in regards to order and office notes received on pt. Order was for a new c-pap. She explains after reading through chart notes pt would be a good candidate with her copd for a [facility] machine instead. This is a non invasive ventilator machine. She said very similar to bi pap.Helps open air way and volume to allow pt to exhale c o 2. She checked and medicare will cover with no cost to pt. If you are ok with this Pratibah will fax order over for this for you to sign. They will go to house and make sure everything is set up correctly . Please advise. documented in this encounter [facility] 10-13-2022 Miscellaneous Notes I contacted patient and she has been scheduled for a follow up with Dr. Fonseca. Patient saw Roberta 09/08/2022 and states she was told to call the office to get scheduled if symptoms changed after the cortisone in right wrist didn't seem to help. It did help the first week but is now back aggressive. She is now having right shoulder/arm pain. Please review and advise. Argentina Medellin LPN documented in this encounter [facility] 09-22-2022 Miscellaneous Notes PATIENT NOTIFIED OF SAME. I sent a new script for the 0.5 dose with the 3 ml pen and this has been sent to [facility]. I am really hoping it will not need a new prior auth. Pt calling yelling at nurse states wants this done today has been going around and around for 2 months.She took this nurses name and said she will be checking on this. Please see last note and place new order and e script to pharmacy.Will take medical record number over to Dr. Macdonald staff so she can get to it. Carrie pharmacist from [facility] calling said the PA for Ozempic needs to be done over. Mainly the rx needs changed and sent to [facility] since [facility] did not have in stock. Carrie said the manufacture has the Ozempic in 3 ml pens, the [facility] number is [id number]. Not sure which one to pend. Please advise documented in this encounter [facility] 09-14-2022 Miscellaneous Notes Order faxed to [facility] [place] Patient reports [facility] told her she is eligible for a new CPAP and supplies in August of 2022. Asking if pcp would send order to [facility] for these? Pended. documented in this encounter [facility] 09-08-2022 History of Present illness Narrative Associated Order(s): Medium Joint Arthro/Inj: R radiocarpal Post-Procedure Diagnose(s): Pain of right thumb; Wrist arthritis Roberta Holman PA-C Department of Orthopaedics Orthopaedics [address] [facility] [address] Dept: [phone] Dept September 08, 2022 CHIEF COMPLAINT: Established Patient and Pain of the Right Wrist Ms. Malathi Zambrano is a 52 year old female who presents with pain in her right wrist and thumb which started insidiously about 3 days ago. She states that she awoke in the morning with swelling and pain in the hand. Pain today is a constant 9 out of 10 throbbing. She tried taking some ibuprofen however she had to discontinue it as it was causing an upset stomach. She has been icing and wearing a compression glove. She is right-hand dominant she previously had a right first dorsal compartment release with Dr. Fonseca 11/2020. Patient is a diabetic she had a hemoglobin A1c drawn today which was 7.6. She tells me that she has been having some catching of her thumb but denies any locking. ASSESSMENT: M19.039 Wrist arthritis (primary encounter diagnosis) M79.644 Pain of right thumb PLAN: She has quite a bit of swelling over the radial aspect of her right wrist. X-ray shows she has some radial carpal joint arthritis. She would like to try a corticosteroid injection in the wrist today. Continue with ice, elevation and encourage some gentle motion of the fingers. I would have her discontinue the compression glove as I think it may be making her swelling a little bit worse. Ms. Malathi Zambrano was advised as to contrast therapies and/or to take analgesics/anti-inflammatories as needed and all contraindications were reviewed. OBJECTIVE: Ms. Malathi Zambrano is a pleasant 52 year old in no apparent distress. Gen:LMP 11/28/2020 nl development, obese, no deformities ENT: Normocephalic, normal hearing, moist mucosa CV: Pulses:Radial= 2+ and symmetric, capillary refill < 2 secs, no peripheral edema/varicosities Skin: no rash, bruising or lesions. Good turgor. Psych: cooperative and appropriate, alert and oriented x 3, good mood and affect. Musculoskeletal: Right wrist with mild to moderate edema over the radial aspect, edema extends into all the digits of the right hand. Exam is difficult as patient is diffusely tender over the first dorsal compartment, radiocarpal joint and basal joint. Patient is able to gently flex and extend the thumb without any locking or catching, grind testing is not painful. No tenderness palpation at the right thumb A1 geovanna site, no locking or catching of the thumb noted with gentle motion. Hypersensitivity to even light touch over the right hand and wrist. Medium Joint Arthro/Inj: R radiocarpal Informed Consent Consent Obtained: Verbal Ralph Protocol A moment to CARE was completed. SIGN IN Sign in communication not applicable due to emergent procedure. Personnel directly involved with the procedure wore the appropriate PPE. Special Equipment: N/A Patient/Surrogate Stated/Verified: Patient name, Date of , Intended procedure and Relevant allergies TIME OUT Intended patient and procedure match the source document(s). Consent documented and matches the intended procedure. Relevant labs, photos, and/or imaging studies have been reviewed. Correct side/site marked and visible. Medications required for procedure verified. No fire risk assessment and interventions applicable. No implant(s) inserted. 09/08/2022 11:52 AM The procedure site was prepped in the usual sterile fashion. Medications: 3 mg betamethasone acetate-betamethasone sodium phosphate 6 mg/mL Anesthetics: 0.5 mL lidocaine (PF) 10 mg/mL (1 %) Outcome: tolerated well, no immediate complications Post-injection instructions were reviewed with the patient and the patient voiced understanding of these instructions. SIGN OUT All instruments, equipment, possible retained foreign bodies accounted for. Imaging: See epic. Supporting Subjective Information Below: Past Surgical History: PAST SURGICAL HISTORY Procedure Laterality Date ABDOMINAL SURGERY HX DELIVERY ONLY 2001,2003 COLONOSCOPY FLX DX W/COLLJ SPEC WHEN PFRMD 02/05/2015 Colonoscopy out pt [facility] D+C 01/27/2021 IUD insertion- BENIGN PATHOLOGY EGD TRANSORAL BIOPSY SINGLE/MULTIPLE 05/02/2006 ESOPHAGOGASTRODUODENOSCOPY TRANSORAL DIAGNOSTIC 02/05/2015 EGD out pt [facility] ESOPHAGOGASTRODUODENOSCOPY TRANSORAL DIAGNOSTIC 01/13/2019 EGD HYSTEROSCOPY BX ENDOMETRIUM&/POLYPC W/WO D&C 08/08/2018 AUB, menorrhagia INCISE FINGER TENDON SHEATH Left 08/18/2021 Left trigger thumb release INCISION EXTENSOR TENDON SHEATH WRIST Right 11/17/2020 Right wrist 1st dorsal compartment release, synovectomy, 2nd dorsal release MIRENA IUD 01/27/2021 insertion PAST SURGICAL HISTORY OF 07/2005 carpal tunnel right hand PAST SURGICAL HISTORY OF 1973 upper lip - plastic surgery. PAST SURGICAL HISTORY OF 2010 right plantar fasciectomy SHX COSMETIC SURGERY SIGMOIDOSCOPY FLX DX W/COLLJ SPEC BR/WA IF PFRMD 05/22/2006 Medications: Current Outpatient Medications Medication Sig semaglutide (OZEMPIC) 0.25 mg or 0.5 mg(2 mg/1.5 mL) pen Inject 0.5 mg subcutaneously one time a week. blood sugar diagnostic (BLOOD GLUCOSE TEST) test strip Test blood sugar(s) 4 times daily. Dx: Type 2 DM - Uncontrolled E11.65 Insulin: Yes flash glucose sensor (FREESTYLE DUSTY 2 SENSOR) kit Check glucose 4 times a day or more as directed. Dx: ICD10: E11.40, Z79.4. Insulin: Yes. blood sugar diagnostic (FREESTYLE LITE STRIPS) test strip Test blood sugar(s) 4 to 5 times times daily. Dx: Type 2 DM - Uncontrolled E11.65 Insulin: Yes insulin aspart U-100 (NOVOLOG FLEXPEN U-100 INSULIN) 100 unit/mL (3 mL) WITH FIRST BITE OF FOOD, 30 UNITS W/BREAKFAST, 30 UNITS W/LUNCH, 30 UNITS W/DINNER; MAY ADJUST WITH SLIDING SCALE GIVEN HIGH BLOOD SUGAR atenolol (TENORMIN) 25 mg tablet Take 1 tablet by mouth once daily. As directed ibuprofen (MOTRIN) 800 mg tablet Take 1 tablet by mouth every 8 hours as needed for pain. albuterol HFA (VENTOLIN HFA) 90 mcg/actuation inhaler Inhale 2 Puffs as instructed every 4 hours as needed for wheezing/shortness of breath. albuterol (PROVENTIL) 2.5 mg /3 mL (0.083 %) nebulizer solution Use 3 mL via nebulizer every 4 hours as needed for wheezing/shortness of breath. Use over 5-15minutes. budesonide (PULMICORT) 0.5 mg/2 mL nebulizer solution Use 2 mL via nebulizer once daily. omeprazole (PRILOSEC) 20 mg capsule Take 1 capsule by mouth daily before breakfast. 1/2 hr before meal. As directed. cyclobenzaprine (FLEXERIL) 10 mg tablet Take 0.5-1 tablets by mouth twice daily as needed. montelukast (SINGULAIR) 10 mg tablet Take 1 tablet by mouth daily at bedtime. nystatin (MYCOSTATIN) cream Apply 1 application to affected area twice daily as needed. Cholecalciferol, Vitamin D3, 25 mcg (1,000 unit) cap Takes 1600 to 2000 units daily with supplement OTC DULoxetine (CYMBALTA) 30 mg capsule Take 1 capsule by mouth once daily. insulin glargine (LANTUS SOLOSTAR U-100 INSULIN) 100 unit/mL (3 mL) Inject 120 Units subcutaneously daily at bedtime. Please dispense 15 pens (3 boxes at a time). fluconazole (DIFLUCAN) 150 mg tablet Take by mouth. Take at onset of yeast infection. Repeat after 5 to 7 days if ongoing symptoms. May treat recurrent episodes as needed. flash glucose scanning reader (FREESTYLE DUSTY 2 READER) Check glucose 4 times a day or more as directed. Dx: ICD10: E11.40, Z79.4. Insulin: Yes. omega-3/dha/epa/dpa/fish oil (OMEGA-3 2100 ORAL) Take 1 tablet by mouth twice daily. ascorbic acid (VITAMIN C ORAL) Take 3,000 Units by mouth once daily. Insulin [place], Disposable, (BD INSULIN PEN NEEDLE UF) 29 gauge x 1/2 Use 1 Needle For Each Dose 3-4 Times Daily With Novolog Pen For Meals and At Bedtime if Needed Blood-Glucose Meter (FREESTYLE LITE METER) monitoring kit Check blood sugars as directed for controlled Type 2 DM without complication CPAP CPAP @ 13 cm of water with humidification. Mask (per patient preference) optional chin strap (if indicated) , filters, tubing, humidifier and lifetime supplies. EPR set at 3. (G47.33) ZHAO (obstructive sleep apnea) COMPOUNDED PRESCRIPTION CPAP supplies--mask per patient preference, tubing, humidifier as needed. G47.33, Z99.89 ZHAO on CPAP Blood-Glucose Meter monitoring kit Glucose Meter of Choice (covered by [employer]) - Kit - Dx: Type 2 DM - Uncontrolled E11.65, Insulin Yes Incontinence Pad, Liner, Disp pads Change pad 3 to 5 times daily. N39.46 Compression Knee Highs KNEE HIGH COMPRESSION STOCKINGS 30-40 MM. DX: (I87.8/459.81) Venous stasis (R60.0782.3) Bilateral edema of lower extremity Lancets (FREESTYLE LANCETS) lancets tests sugar 4 to 6 times daily DX:250.02 Insulin dependent (this is corrected RX) Cane Misc [place] 1 Each. Diagnosis: 724.2 Back pain hydroCHLOROthiazide (HYDRODIURIL, ESIDRIX) 25 mg tablet Take 1 tablet by mouth once daily. As needed for swelling from fluid retention (Patient not taking: No sig reported) norethindrone (AYGESTIN) 5 mg tablet Take 1 tablet by mouth as directed. 1 tablet 3 times daily until bleeding stops then twice daily for 2 days then 1 tablet daily for 2 days. (Patient not taking: No sig reported) diclofenac (VOLTAREN) 1 % topical gel Apply 2 g to affected area four times daily. (Patient not taking: No sig reported) ergocalciferol 50,000 unit capsule (VITAMIN D2, DRISDOL) Take 1 capsule by mouth one time a week. (Patient not taking: No sig reported) mupirocin (BACTROBAN) 2 % ointment Apply 1 application to affected area three times daily. Location: torso wounds as directed till healed (Patient not taking: No sig reported) COMPOUNDED PRESCRIPTION Bilateral compression Knee Hi 20-30 mm. ICD 10; 459.81; 782.3 (Patient not taking: No sig reported) No current facility-administered medications for this visit. Allergies: Losartan, Vicodin [Hydrocodone-Acetaminophen], Amlodipine, Codeine Antitussive Cough, Latex, Lisinopril, Metformin, and Relafen [Nabumetone] ROS: General (negative for fatigue, malaise, weight loss/gain) HEENT (negative for headache, earache, recent vision changes, sinus pain, sore throat) Respiratory (no recent shortness of breath, hemoptysis) CV (negative for chest tightness, palpitations) Musculoskeletal (see HPI) Psych (no depression, anxiety) This note was partially generated using [employer] voice recognition system, and there may be some incorrect words, spellings, and punctuation that were not noted in checking the note before saving. Roberta Holman PA-C AMB ROOMING INTAKE FLOWSHEET DATA Pain Pain Level: 7 (7-1010) Pain Location: Wrist-Right Description: Aching, Throbbing Duration Amount of Time: 3 Duration Units: Days Frequency: Continuous Intervention/Comfort measure: Reposition, Relaxation, Medication (Tylenol, compression glove) Patient presents with: Right Wrist - Established Patient, Pain Patient c/o R wrist pain that started 3 days ago. No injury, pain just started in the morning. Pain radiates from base of thumb to wrist. She is taking Tylenol and wearing a compression sleeve to help with pain and swelling. documented in this encounter [facility] 08-23-2022 Miscellaneous Notes Patient notified. Agree patient needing to be seen. For O2sat at 90% or below, increased shortness of breath, chest pain, or any other urgent concerns she needs to go to ER tonight versus waiting on appointment tomorrow. Thank you Carolann Ortiz APRN.FERN Patient calling for same day appointment with PCP or [employer] Darlene for symptoms of upper respiratory illness x 2 weeks with cough, SOB, wheezing for last couple days. No appointments available today or tomorrow. Advised ER evaluation due to she reported 02 saturation was 90% within last couple days and she has intermittent wheezing. She did not check O2 sat today. She says she is using Albuterol as prescribed and it is not working as well as it should. Again advised ER evaluation per triage protocol. She adamantly refuses. She wants to hear from PCP for recommendation. Scheduled appointment with Dr. Turcios tomorrow AM which patient is agreeable to. Kimi Richard RN Reason for Disposition Oxygen level (e.g., pulse oximetry) 90 percent or lower Answer Assessment - Initial Assessment Questions 1. RESPIRATORY STATUS: Patient says she has had an upper respiratory Illness x 2 weeks and now has a cough, mild SOB, intermittent wheezing 2. ONSET: couple days ago. Home COVID test negative 3. PATTERN: intermittent SOB 4. SEVERITY: How bad is your breathing? (e.g., mild, moderate, severe) - MILD: No SOB at rest, mild SOB with walking, speaks normally in sentences, can lie down, no retractions, pulse < 100. 5. RECURRENT SYMPTOM: Has had with other respiratory symptoms in past 6. CARDIAC HISTORY: Denies 7. LUNG HISTORY: Asthma 8. CAUSE: upper respiratory illness 9. OTHER SYMPTOMS: cough with some clear mucous 10. O2 SATURATION MONITOR: Does not know what her O2 sat is today. States it was 90% a couple days ago 11. : NO 12. TRAVEL: NO Protocols used: Breathing [id number] documented in this encounter [facility] 08-22-2022 Miscellaneous Notes documented in this encounter [facility] 08-12-2022 Miscellaneous Notes Pt called and is notified of providers message. Pt voices understanding. Ling Brower RN Filed order Pt let lab orders . She is hoping that they can be reordered and she can get them done when she comes in for mammon on 08/[address] encounter [facility] 08-04-2022 Miscellaneous Notes OK Patient called again upset b/c she has to talk to a different person everytime she calls. Asking pcp to send generic meter and strips to [facility]. Patient calls back and is upset because she had talked to [employer] and they told her that a prior authorization was never sent. Patient asking to speaking with previous nurse she spoke to regarding this. Key Montgomery RN called the pharmacy and they report this is product issue not a qty issue. Called pt and reviewed. She is not happy with this response.she says she is calling the pharmacy to see which is covered and calling her insurance. Please send new rx for generic meter and strips. The pharmacy can run which ever machine and strips are covered. Pt calling and states she needs Prior Authorization for her Freestyle Lite Test Strips ordered on 07/18/22 by ROSEANN Xavier. Pt informed that request would be sent to PA member and she would be called with any updates. PRIOR AUTHORIZATION Medication for Prior Authorization: Freestyle Lite Strips Insurance Company: [employer] Anna Smith RN documented in this encounter [facility] 07-18-2022 Miscellaneous Notes Patient has been identified by name and date of : Yes, Provider Elissa Cabrera Date 07/18/22 Time 2:13 pm Patient phones for refill(s): Requested Prescriptions Pending Prescriptions Disp Refills blood sugar diagnostic (FREESTYLE LITE STRIPS) test strip 200 Strip 1 Sig: Test blood sugar(s) 4 to 5 times times daily. Dx: Type 2 DM - Uncontrolled E11.65 Insulin: Yes Date of last office visit in primary care: 06/07/22 Last 2 Encounter Wt Readings: Date: Wt: 06/07/2022 127.5 kg (281 lb) 11/29/2021 127 kg (280 lb) Previous labs/tests for medication: Diabetes: Hemoglobin A1C (%) Date Value 11/29/2021 7.3 06/20/2021 8.2 10/19/2020 7.0 Thank you. Sue Marcial LPN documented in this encounter [facility] 06-07-2022 History of Present illness Narrative This note was created using Pressyter. Subjective Malathi Zambrano is a 52 year old female. Patient presents with: F/U 3 Month SUBJECTIVE: Malathi Zambrano is a 52 year old year old lady here today for 3 month follow up appointment for review of medical conditions. CPAP not working. Bad attacks at night. When was working, helped with breathing--needed to wear even when awake at rest. [facility] where got supplies before. Cannot do powdered inhaler. Advair not better than Flovent. Still cannot take a deep breath. Feels SOB. Even when not wheezing or sick. Pulse ox still okay. Still getting over illness. Treated empirically with Tamiflu. COVID negative since testing. Flexeril for spasm Taking madelyn mag zn PAST MEDICAL HISTORY Diagnosis Date Abdominal pain, left upper quadrant Abdominal pain, unspecified site Acquired spondylolisthesis 07/25/2010 Acute gastritis without mention of hemorrhage Asthma Calcaneal spur 10/15/2009 Cough DEPRESSIVE DISORDER NEC 06/15/2007 Depressive disorder, not elsewhere classified Diabetes mellitus without mention of complication Diabetes mellitus Diabetes mellitus without mention of complication Diabetes mellitus type 2 Displacement of lumbar intervertebral disc without myelopathy 12/30/2009 Esophageal reflux 10/01/2006 Esophagitis, unspecified Fibromyalgia 07/25/2010 Generalized anxiety disorder Anxiety, Generalized Hemorrhage of gastrointestinal tract, unspecified Hypertension Internal hemorrhoids without mention of complication Left carpal tunnel syndrome 09/11/2013 Lumbago 08/05/2008 Migraine 03/02/2009 Mixed stress and urge urinary incontinence Myalgia and myositis, unspecified Obesity, unspecified Obesity ZHAO (obstructive sleep apnea) 05/01/2011 uses C-PAP PMH - PAST MEDICAL HISTORY OF allergic syndrome; gets allergy shots PMH - PAST MEDICAL HISTORY OF bipolar Psoriasis and similar disorders Sleep apnea Spondylolysis, 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 Grissom saw in the past Vitamin D deficiency 11/29/2010 on calcitriol Current Outpatient Medications Medication Sig insulin aspart U-100 (NOVOLOG FLEXPEN U-100 INSULIN) 100 unit/mL (3 mL) WITH FIRST BITE OF FOOD, 30 UNITS W/BREAKFAST, 30 UNITS W/LUNCH, 30 UNITS W/DINNER; MAY ADJUST WITH SLIDING SCALE GIVEN HIGH BLOOD SUGAR atenolol (TENORMIN) 25 mg tablet Take 1 tablet by mouth once daily. As directed ibuprofen (MOTRIN) 800 mg tablet Take 1 tablet by mouth every 8 hours as needed for pain. montelukast (SINGULAIR) 10 mg tablet Take 1 tablet by mouth daily at bedtime. nystatin (MYCOSTATIN) cream Apply 1 application to affected area twice daily as needed. Cholecalciferol, Vitamin D3, 25 mcg (1,000 unit) cap Takes 1600 to 2000 units daily with supplement OTC DULoxetine (CYMBALTA) 30 mg capsule Take 1 capsule by mouth once daily. insulin glargine (LANTUS SOLOSTAR U-100 INSULIN) 100 unit/mL (3 mL) Inject 120 Units subcutaneously daily at bedtime. Please dispense 15 pens (3 boxes at a time). flash glucose sensor (FREESTYLE DUSTY 2 SENSOR) kit Check glucose 4 times a day or more as directed. Dx: ICD10: E11.40, Z79.4. Insulin: Yes. fluticasone-salmeterol HFA (ADVAIR HFA) 230-21 mcg/actuation inhaler Inhale 2 Puffs as instructed twice daily. albuterol HFA (PROVENTIL HFA, VENTOLIN HFA) 90 mcg/actuation inhaler Inhale 2 Puffs as instructed every 4 hours as needed for wheezing/shortness of breath. fluconazole (DIFLUCAN) 150 mg tablet Take by mouth. Take at onset of yeast infection. Repeat after 5 to 7 days if ongoing symptoms. May treat recurrent episodes as needed. omeprazole (PRILOSEC) 20 mg capsule Take 1 capsule by mouth daily before breakfast. 1/2 hr before meal. As directed. flash glucose scanning reader (FREESTYLE DUSTY 2 READER) Check glucose 4 times a day or more as directed. Dx: ICD10: E11.40, Z79.4. Insulin: Yes. omega-3/dha/epa/dpa/fish oil (OMEGA-3 2100 ORAL) Take 1 tablet by mouth twice daily. ascorbic acid (VITAMIN C ORAL) Take 3,000 Units by mouth once daily. Insulin [place], Disposable, (BD INSULIN PEN NEEDLE UF) 29 gauge x 1/2 Use 1 Needle For Each Dose 3-4 Times Daily With Novolog Pen For Meals and At Bedtime if Needed Blood-Glucose Meter (FREESTYLE LITE METER) monitoring kit Check blood sugars as directed for controlled Type 2 DM without complication cyclobenzaprine (FLEXERIL) 10 mg tablet Take 0.5-1 tablets by mouth twice daily as needed. blood sugar diagnostic (BLOOD GLUCOSE TEST) test strip Test blood sugar(s) 5 times daily. (Test strips brand covered by [employer]) Dx: Type 2 DM - Uncontrolled E11.65 Insulin: Yes CPAP CPAP @ 13 cm of water with humidification. Mask (per patient preference) optional chin strap (if indicated) , filters, tubing, humidifier and lifetime supplies. EPR set at 3. (G47.33) ZHAO (obstructive sleep apnea) COMPOUNDED PRESCRIPTION CPAP supplies--mask per patient preference, tubing, humidifier as needed. G47.33, Z99.89 ZHAO on CPAP Blood-Glucose Meter monitoring kit Glucose Meter of Choice (covered by [employer]) - Kit - Dx: Type 2 DM - Uncontrolled E11.65, Insulin Yes blood sugar diagnostic (FREESTYLE LITE STRIPS) test strip Test blood sugars 5 times per day and as needed. Dx: E11.65; Insulin: yes Incontinence Pad, Liner, Disp pads Change pad 3 to 5 times daily. N39.46 Compression Knee Highs KNEE HIGH COMPRESSION STOCKINGS 30-40 MM. DX: (I87.8/459.81) Venous stasis (R60.0782.3) Bilateral edema of lower extremity Lancets (FREESTYLE LANCETS) lancets tests sugar 4 to 6 times daily DX:250.02 Insulin dependent (this is corrected RX) Cane Misc [place] 1 Each. Diagnosis: 724.2 Back pain hydroCHLOROthiazide (HYDRODIURIL, ESIDRIX) 25 mg tablet Take 1 tablet by mouth once daily. As needed for swelling from fluid retention (Patient not taking: Reported on 06/07/2022) oxyCODONE IR (ROXICODONE) 10 mg tab Take 1 tablet by mouth twice daily for 30 days. May take one pill extra per day as needed for exacerbation of pain (not daily). Do not start before January 22, 2022. norethindrone (AYGESTIN) 5 mg tablet Take 1 tablet by mouth as directed. 1 tablet 3 times daily until bleeding stops then twice daily for 2 days then 1 tablet daily for 2 days. (Patient not taking: Reported on 03/30/2021 ) valsartan (DIOVAN) 40 mg tablet Take 1 tablet by mouth once daily. (Patient not taking: Reported on 06/20/2021 ) diclofenac (VOLTAREN) 1 % topical gel Apply 2 g to affected area four times daily. (Patient not taking: Reported on 06/07/2022) fluticasone (FLOVENT HFA) 220 mcg/actuation inhaler Inhale 2 Puffs as instructed twice daily. (Patient not taking: Reported on 06/07/2022) albuterol HFA (VENTOLIN HFA) 90 mcg/actuation inhaler Inhale 2 Puffs as instructed every 4 hours as needed for Wheezing/Shortness of Breath. (Patient not taking: Reported on 06/07/2022) ergocalciferol 50,000 unit capsule (VITAMIN D2, DRISDOL) Take 1 capsule by mouth one time a week. (Patient not taking: Reported on 06/07/2022) mupirocin (BACTROBAN) 2 % ointment Apply 1 application to affected area three times daily. Location: torso wounds as directed till healed (Patient not taking: Reported on 06/07/2022) COMPOUNDED PRESCRIPTION Bilateral compression Knee Hi 20-30 mm. ICD 10; 459.81; 782.3 (Patient not taking: Reported on 06/07/2022) No current facility-administered medications for this visit. Review of Systems Objective BP 112/66 Pulse 83 Temp 36.9 C (98.4 F) Resp 18 Wt 127.5 kg (281 lb) LMP 11/28/2020 (LMP Unknown) SpO2 96% BMI 53.09 kg/m Last 5 Encounter Wt Readings: Date: Wt: 06/07/2022 127.5 kg (281 lb) 11/29/2021 127 kg (280 lb) 07/29/2021 130.6 kg (288 lb) 07/27/2021 129.7 kg (286 lb) 06/29/2021 130.6 kg (287 lb 14.7 oz) No waist measurement recorded Estimated body mass index is 53.09 kg/m as calculated from the following: Height as of 07/29/21: 154.9 cm (5' 1). Weight as of this encounter: 127.5 kg (281 lb). Last 5 Encounter BP Readings: Date: BP: 06/07/2022 112/66 11/29/2021 118/64 07/29/2021 110/62 06/29/2021 128/60 06/28/2021 130/64 Physical Exam Constitutional: Appearance: Normal appearance. HENT: Head: Normocephalic. Eyes: Conjunctiva/sclera: Conjunctivae normal. Cardiovascular: Rate and Rhythm: Normal rate and regular rhythm. Heart sounds: Normal heart sounds. Pulmonary: Effort: Pulmonary effort is normal. Breath sounds: Normal breath sounds. Skin: General: Skin is warm and dry. Neurological: General: No focal deficit present. Mental Status: She is alert and oriented to person, place, and time. Psychiatric: Mood and Affect: Mood normal. Behavior: Behavior normal. Thought Content: Thought content normal. Judgment: Judgment normal. Hemoglobin A1C (%) Date Value 11/29/2021 7.3 06/20/2021 8.2 10/19/2020 7.0 07/23/2020 7.3 06/05/2019 7.9 06/18/2018 6.6 Component Latest Ref Rng & Units 12/14/2020 12/23/2020 01/06/2021 06/20/2021 11/29/2021 Protein, Total 6.3 - 8.0 g/dL 6.5 7.2 Albumin 3.9 - 4.9 g/dL 3.8 (L) 4.3 Calcium 8.5 - 10.2 mg/dL 9.0 Bilirubin, Total 0.2 - 1.3 mg/dL 0.3 0.3 Alkaline Phosphatase 34 - 123 U/L 78 90 AST 13 - 35 U/L 16 20 Glucose 74 - 99 mg/dL 176 (H) BUN 7 - 21 mg/dL 10 Creatinine 0.58 - 0.96 mg/dL 0.56 (L) Sodium 136 - 144 mmol/L 139 Potassium 3.7 - 5.1 mmol/L 4.0 Chloride 97 - 105 mmol/L 106 (H) CO2 22 - 30 mmol/L 23 Anion Gap 9 - 18 mmol/L 10 ALT 7 - 38 U/L 15 19 eGFR- >60 eGFR-All Other Races . >60 WBC 3.70 - 11.00 k/uL 8.96 11.20 (H) RBC 3.90 - 5.20 m/uL 3.77 (L) 4.41 Hemoglobin 11.5 - 15.5 g/dL 11.5 13.2 Hematocrit 36.0 - 46.0 % 34.7 (L) 40.2 MCV 80.0 - 100.0 fL 92.0 91.2 MCH 26.0 - 34.0 pG 30.5 29.9 MCHC 30.5 - 36.0 g/dL 33.1 32.8 RDW-CV 11.5 - 15.0 % 13.8 13.2 Platelet Count 150 - 400 k/uL 241 289 MPV 9.0 - 12.7 fL 8.9 (L) 9.1 Absolute nRBC <0.01 k/uL <0.01 <0.01 Bilirubin, Conjug <0.2 mg/dL <0.2 EBV VCA IgG, Qual Negative Positive (A) EBV VCA IgM, Qual Negative Negative EBV EA Ab, Qual Negative Negative EBV NA Ab, Qual Negative Positive (A) Interpretation (EBVPNL) Past Infection Creatinine, Ur Random (UCRR) 20 - 300 mg/dL 53.4 Albumin, Urine Random mg/L <12.0 Albumin/Creat Ratio <30 mg/g Not calculated Vitamin D 25 Hydroxy 31.0 - 80.0 ng/mL 22.7 (L) TSH 0.270 - 4.200 uU/mL 3.560 3.740 Hep C Antibody IA Negative Negative Hep B Surface Ag Negative Negative Hep B Surface Ab, Qual Negative Negative Hep B Core Ab, Total Negative Negative Assessment and Plan Encounter Diagnosis ICD-10-CM 1. Mild persistent asthma with acute exacerbation J45.31 DISCONTINUED: fluticasone-salmeterol HFA (ADVAIR HFA) 230-21 mcg/actuation inhaler 2. 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 Type 2 diabetes mellitus with diabetic neuropathy, with long-term current use of insulin (HCC) E11.40 COMP METABOLIC PANEL Z79.4 HGB A1C ALBUMIN/CREAT RATIO RND UR LIPID PANEL BASIC 4. Essential hypertension I10 COMP METABOLIC PANEL CBC + DIFF 5. Vitamin D deficiency E55.9 VITAMIN D 25 HYDROXY COMP METABOLIC PANEL 6. Chronic obstructive pulmonary disease, unspecified COPD type (HCC) J44.9 albuterol HFA (VENTOLIN HFA) 90 mcg/actuation inhaler NEBULIZER ADMINISTRATION SET albuterol (PROVENTIL) 2.5 mg /3 mL (0.083 %) nebulizer solution Noted not to be the main issue per business change manager 7. Medication management Z79.899 VITAMIN D 25 HYDROXY COMP METABOLIC PANEL HGB A1C CBC + DIFF ALBUMIN/CREAT RATIO RND UR MAGNESIUM BLD LIPID PANEL BASIC 8. Grief reaction F43.21 Above issues addressed with patient. Patient involved in shared decision making for management of medical issues. Stable with control of chronic pain. No signs of diversion or abuse of medication(s); no adverse effects. Continue present management. History and medications reviewed. Epic updated as needed Refills and/or prescriptions taken care of and meds adjusted as indicated after reviewed history, exam and labs. Health Maintenance reviewed. Updated record and/or ordered tests as recorded. Encouraged on efforts at healthy diet and regular exercise and adequate sleep. Emotional support given. Continue present meds. Further evaluation and treatment as indicated. I spent a total of 60 minutes on the date of the service which included preparing to see the patient, [id number] patient care, completing clinical documentation, obtaining and/or reviewing separately obtained history, performing a medically appropriate examination, counseling and educating the patient/family/caregiver, and ordering medications, tests, or procedures. Aurora Macdonald MD documented in this encounter [facility] 06-07-2022 Miscellaneous Notes Pt has apt 06/07/22. Sue Marcial LPN Last office visit: 11/09/21 Next appointment scheduled: 06/07/22 Last labs: 11/29/[address] encounter [facility] 06-06-2022 Miscellaneous Notes Last office visit: 11/09/21 Next appointment scheduled: 06/07/22 Last labs: 11/29/21 last HGBA1C Patient phones requesting refills as follows: Requested Prescriptions Pending Prescriptions Disp Refills insulin aspart U-100 (NOVOLOG FLEXPEN U-100 INSULIN) 100 unit/mL (3 mL) 90 mL 3 Sig: WITH FIRST BITE OF FOOD, 30 UNITS W/BREAKFAST, 30 UNITS W/LUNCH, 30 UNITS W/DINNER; MAY ADJUST WITH SLIDING SCALE GIVEN HIGH BLOOD SUGAR Please review and advise. Divina Oh LPN documented in this encounter [facility] 06-01-2022 Miscellaneous Notes Spoke with patient. Given message from provider's office. Patient verbalizes understanding. Patient has scheduled appointment with PCP on 06/07/22. Kimi Richard RN Attempted to contact patient. No answer. Kimi Richard RN Reviewing messages. Given patient's risk of complications and current symptoms, will okay Tamiflu, but let her know that there are other illnesses circulation, so if symptoms are not improving with Tamiflu, and if getting worse, should be seen to determine further evaluation and treatment in case developing bacterial infection or pneumonia, etc. Note that for future reference, if develops flu symptoms, ideally would treat within 48 hours of symptom onset to help shorten duration. Noted that her symptoms started about 5 days ago so response might not be as good but current guidelines indicate okay to give beyond 48 hours if significant symptoms. and risk factors Continue symptom care for viral illness. Express [facility] for further evaluation or treatment as indicated. Patient calling and requesting message be sent to Dr. Macdonald for review. Pt aware that provider is out of office today and message would be sent to [facility] provider. Pt states she thinks she has the flu. States she all the symptoms of it. Symptoms began 05/26/22 and include: nasal congestion, productive cough, raspy voice, body aches, some wheezing at times (states has asthma), mild SOB at rest, mild sore throat, sinus pressure, headache, chills and sweating profusely. Denies chest pain or respiratory distress. Talking in full sentences. Reports she took a rapid covid home test yesterday and it was negative. Pt interested in tamiflu or other treatment. Pt declining to make appt or go to [facility] for testing at this time, states it is foolish for her to come in and get exposed to other things. Pt requesting message be sent to Dr. Macdonald to order her something because she is not improving, because she knows me well. Uses [facility] in [place]. Please advise patient. Thank you. documented in this encounter [facility] 03-19-2022 Miscellaneous Notes OK to mail letter if not yet sent. His will be in medical records today after 12 noon. Called pt with no answer and no voice mail. My chart message to pt. So she wants an air conditioner per previous letter, not HEAP? Added home energy assistance to her previous home air conditioning letter. Can print letter. Please process. Patient reports every year for several years Dr. Macdonald wrote a letter for her stating that she would benefit from air conditioning due to asthma and COPD. See note/encounter from 12/10/2019. Patient would like to shredder picker letter once completed, if provider agreeable to complete. Thank you. There is no HEAP letter on file going back to 2019. Why does she need it - what diagnosis or treatment? Patient reports she received a letter from HE[employer] yesterday stating they need a new letter from pcp by tomorrow. Reports it is that time of year to renew her medical necessity letter for [employer] for [employer]. States pcp usually just changes the date and prints it out for her. Asking if Technical Producer can do this today and call her for shredder picker? documented in this encounter [facility] 02-07-2022 Miscellaneous Notes [employer] states they received orders & pt demographics but did not receive last OV notes. Notes fax to [phone] via [employer]. Maria A Peralta LPN documented in this encounter [facility] 01-30-2022 Miscellaneous Notes [employer] called and states they received the orders for pt's supplies but did not have an address, phone number and insurance for pt. Previous phone encounter from pt states above is the supplier for pt. Information given and copies of insurance card faxed to [phone]. Sue Marcial LPN documented in this encounter [facility] 01-26-2022 Miscellaneous Notes [employer] calling with request for OV note for prior authorization of Free Style Dusty 2 Sensors. 10/04/21 note faxed to . Done. .me documented in this encounter [facility] 01-24-2022 Miscellaneous Notes Patient calls in to review lab results. Patient already scheduled appointment with previous nurse for 3 month follow up appointments. Pari Oliver RN Pt notified via my chart. ----- Message from Aurora Macdonald MD sent at 01/23/2022 8:38 AM EDT ----- EBV titers consistent with old infection. HgA1C improved. Rest of labs fine Needs her November and February follow up appointments rescheduled (needs seen every 3 months) documented in this encounter [facility] 01-24-2022 Miscellaneous Notes Patient calls in and provider message below reviewed. Patient verbalizes understanding. Pari Oliver RN Called and left a voicemail for the Patient to call back and ask for a nurse to receive the providers message. Ling Brower RN Order filed Pt called in and reports her insurance [employer] says they have sent over paperwork a couple times requesting a new prescription for the Free Style Dusty Sensors. She reports she needs a PA sent to them for a new prescription. Patient has been identified by name and date of : Yes Patient phones for refill(s): Requested Prescriptions Pending Prescriptions Disp Refills flash glucose sensor (FREESTYLE DUSTY 2 SENSOR) kit 3 Each 3 Sig: Check glucose 4 times a day or more as directed. Dx: ICD10: E11.40, Z79.4. Insulin: Yes. Date of last office visit in primary care: 11/29/21 Future visit: 06/07/22 Last 2 Encounter Wt Readings: Date: Wt: 11/29/2021 127 kg (280 lb) 07/29/2021 130.6 kg (288 lb) Previous labs/tests for medication: Diabetes: Hemoglobin A1C (%) Date Value 11/29/2021 7.3 06/20/2021 8.2 10/19/2020 7.0 Please advise. Thank you. Ling Brower RN documented in this encounter [facility] 01-24-2022 Miscellaneous Notes Spoke with pt and information listed below given. Pt's apt has been rescheduled to 01-31-22. Sue Marcial LPN The following approved medication requests have been transmitted electronically. Requested Prescriptions Signed Prescriptions Disp Refills oxyCODONE IR (ROXICODONE) 10 mg tab 60 tablet 0 Sig: Take 1 tablet by mouth twice daily for 30 days. May take one pill extra per day as needed for exacerbation of pain (not daily). Do not start before January 22, 2022. Authorizing Provider: AURORA MACDONALD MD Urine Tox screen and pain panel ordered--needs done since not done in past 12 months yet. Needs March 01 appointment rescheduled. VV or F2F okay. Do before February.appt please. Last OV: 11/29/21 Next OV: 06/07/[address] encounter [facility] 12-23-2021 Miscellaneous Notes Pharmacy notified. malathi briscoe Bello: [place] help? Call us at Outcome Approvedtoday Approved. Approved for OXYCODONE HCL Tablet, quantity up to 80 per 30 days, under the pharmacy benefit. The drug has been approved from 12/23/2021 to 03/25/2022. Generic substitution required when available. Drug oxyCODONE HCl 10MG tablets Form [employer] Electronic Prior Authorization Request Form (2016 NCPDP) PA completed via covermymeds. montrell briscoe Bello: [place] help? Call us at Status Sent to [facility] Drug oxyCODONE HCl 10MG tablets Form [employer] Electronic Prior Authorization Request Form (2016 NCPDP) Waiting for response. Pt called back and was instructed by pharmacy she needs PA done for medication below. I called the pharmacy and she instructed me a PA is needed thru [place] for medication below. See information below to do. Please advise pt. Sue Marcial LPN Unable to complete electronic PA. Will have to review via covermymed. Last filled a RX for oxycodone 11/16. Looks like RXs and date filled not lining up. Wonder if they filled 10/31 RX on 11/16, then the 11/30 could not be filled in December since date due to shredder picker would be beyond 14 days before R . Maybe just needs new RX (often they tell patients need prior authorization when they really need a new RX refill at the pharmacy) The following approved medication requests have been transmitted electronically. Signed Prescriptions Disp Refills oxyCODONE IR (ROXICODONE) 10 mg tab 80 tablet 0 Sig: Take 1 tablet by mouth twice daily for 30 days. May take one pill extra per day as needed for exacerbation of pain (not daily). MARVA Class: C-II MARC: No Authorizing Provider: AURORA MACDONALD MD Pt would need current rx. Last rx was for 11/30/21 to 12/30/21. This hasn't had to be prior authorized previously. I think pt just need rx for 12/30/21. Will prior authorize it if it is prompted. Pt calling and states a PA needs to be done for medication below. Please advise pt when done. PRIOR AUTHORIZATION Medication for Prior Authorization: Oxycodone IR 10 mg tab Other formulary meds available : NO Insurance Company: [employer] Resources phone number: [phone] Patient insurance ID number: [id number] Sue Marcial LPN documented in this encounter [facility] 11-29-2021 History of Present illness Narrative This note was created using [email or web address]. Subjective Malathi Zambrano is a 51 year old female. Patient presents with: Follow Up SUBJECTIVE: Malathi Zambrano is a 51 year old year old lady here today for follow up appointment for review of medical conditions. October 05--lipids, TSH, nicotine, CMP, B12, D-25, Mg, LFTs normal except AST 75 (15-46) No RUQ pain Has LUQ pain--chronic for years and worse. No N/V issues lately. No unexplained weight loss Has had some strong headaches like migraines. that can get nausea when severe headache. 2 in past 2 months debilitating headache. One while driving. Other left side of head with nausea. PAST MEDICAL HISTORY Diagnosis Date Abdominal pain, left upper quadrant Abdominal pain, unspecified site Acquired spondylolisthesis 07/25/2010 Acute gastritis without mention of hemorrhage Asthma Calcaneal spur 10/15/2009 Cough DEPRESSIVE DISORDER NEC 06/15/2007 Depressive disorder, not elsewhere classified Diabetes mellitus without mention of complication Diabetes mellitus Diabetes mellitus without mention of complication Diabetes mellitus type 2 Displacement of lumbar intervertebral disc without myelopathy 12/30/2009 Esophageal reflux 10/01/2006 Esophagitis, unspecified Fibromyalgia 07/25/2010 Generalized anxiety disorder Anxiety, Generalized Hemorrhage of gastrointestinal tract, unspecified Hypertension Internal hemorrhoids without mention of complication Left carpal tunnel syndrome 09/11/2013 Lumbago 08/05/2008 Migraine 03/02/2009 Mixed stress and urge urinary incontinence Myalgia and myositis, unspecified Obesity, unspecified Obesity ZHAO (obstructive sleep apnea) 05/01/2011 uses C-PAP PMH - PAST MEDICAL HISTORY OF allergic syndrome; gets allergy shots PMH - PAST MEDICAL HISTORY OF bipolar Psoriasis and similar disorders Sleep apnea Spondylolysis, 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 Grissom saw in the past Vitamin D deficiency 11/29/2010 on calcitriol Current Outpatient Medications Medication Sig oxyCODONE IR (ROXICODONE) 10 mg tab Take 1 tablet by mouth twice daily for 30 days. May take one pill extra per day as needed for exacerbation of pain (not daily). Do not start before October 31, 2021. [START ON 11/30/2021] oxyCODONE IR (ROXICODONE) 10 mg tab Take 1 tablet by mouth twice daily for 30 days. May take one pill extra per day as needed for exacerbation of pain (not daily). Do not start before November 30, 2021. oxyCODONE IR (ROXICODONE) 10 mg tab Take 1 tablet by mouth twice daily for 30 days. May take one pill extra per day as needed for exacerbation of pain (not daily). Do not start before October 01, 2021. fluticasone-salmeterol HFA (ADVAIR HFA) 230-21 mcg/actuation inhaler Inhale 2 Puffs as instructed twice daily. albuterol HFA (PROVENTIL HFA, VENTOLIN HFA) 90 mcg/actuation inhaler Inhale 2 Puffs as instructed every 4 hours as needed for wheezing/shortness of breath. fluconazole (DIFLUCAN) 150 mg tablet Take by mouth. Take at onset of yeast infection. Repeat after 5 to 7 days if ongoing symptoms. May treat recurrent episodes as needed. omeprazole (PRILOSEC) 20 mg capsule Take 1 capsule by mouth daily before breakfast. 1/2 hr before meal. As directed. flash glucose sensor (FREESTYLE DUSTY 2 SENSOR) kit Check glucose 4 times a day or more as directed. Dx: ICD10: E11.40, Z79.4. Insulin: Yes. flash glucose scanning reader (FREESTYLE DUSTY 2 READER) Check glucose 4 times a day or more as directed. Dx: ICD10: E11.40, Z79.4. Insulin: Yes. insulin glargine (LANTUS SOLOSTAR U-100 INSULIN) 100 unit/mL (3 mL) Inject 120 Units subcutaneously daily at bedtime. Please dispense 15 pens (3 boxes at a time). ibuprofen (MOTRIN) 800 mg tablet Take 1 tablet by mouth every 8 hours as needed for pain. atenolol (TENORMIN) 25 mg tablet Take 1 tablet by mouth once daily. As directed insulin aspart U-100 (NOVOLOG FLEXPEN U-100 INSULIN) 100 unit/mL (3 mL) WITH FIRST BITE OF FOOD, 30 UNITS W/BREAKFAST, 30 UNITS W/LUNCH, 30 UNITS W/DINNER; MAY ADJUST WITH SLIDING SCALE GIVEN HIGH BLOOD SUGAR norethindrone (AYGESTIN) 5 mg tablet Take 1 tablet by mouth as directed. 1 tablet 3 times daily until bleeding stops then twice daily for 2 days then 1 tablet daily for 2 days. (Patient not taking: Reported on 03/30/2021 ) Cholecalciferol, Vitamin D3, 25 mcg (1,000 unit) cap Takes 1600 to 2000 units daily with supplement OTC DULoxetine (CYMBALTA) 30 mg capsule Take 1 capsule by mouth once daily. valsartan (DIOVAN) 40 mg tablet Take 1 tablet by mouth once daily. (Patient not taking: Reported on 06/20/2021 ) diclofenac (VOLTAREN) 1 % topical gel Apply 2 g to affected area four times daily. nystatin (MYCOSTATIN) cream Apply 1 application to affected area twice daily as needed. omega-3/dha/epa/dpa/fish oil (OMEGA-3 2100 ORAL) Take 1 tablet by mouth twice daily. ascorbic acid (VITAMIN C ORAL) Take 3,000 Units by mouth once daily. fluticasone (FLOVENT HFA) 220 mcg/actuation inhaler Inhale 2 Puffs as instructed twice daily. albuterol HFA (VENTOLIN HFA) 90 mcg/actuation inhaler Inhale 2 Puffs as instructed every 4 hours as needed for Wheezing/Shortness of Breath. Insulin [place], Disposable, (BD INSULIN PEN NEEDLE UF) 29 gauge x 1/2 Use 1 Needle For Each Dose 3-4 Times Daily With Novolog Pen For Meals and At Bedtime if Needed ergocalciferol 50,000 unit capsule (VITAMIN D2, DRISDOL) Take 1 capsule by mouth one time a week. Blood-Glucose Meter (FREESTYLE LITE METER) monitoring kit Check blood sugars as directed for controlled Type 2 DM without complication montelukast (SINGULAIR) 10 mg tablet Take 1 tablet by mouth daily at bedtime. hydroCHLOROthiazide (HYDRODIURIL, ESIDRIX) 25 mg tablet Take 1 tablet by mouth once daily. As needed for swelling from fluid retention (Patient not taking: Reported on 07/29/2021 ) cyclobenzaprine (FLEXERIL) 10 mg tablet Take 0.5-1 tablets by mouth twice daily as needed. mupirocin (BACTROBAN) 2 % ointment Apply 1 application to affected area three times daily. Location: torso wounds as directed till healed blood sugar diagnostic (BLOOD GLUCOSE TEST) test strip Test blood sugar(s) 5 times daily. (Test strips brand covered by [employer]) Dx: Type 2 DM - Uncontrolled E11.65 Insulin: Yes CPAP CPAP @ 13 cm of water with humidification. Mask (per patient preference) optional chin strap (if indicated) , filters, tubing, humidifier and lifetime supplies. EPR set at 3. (G47.33) ZHAO (obstructive sleep apnea) COMPOUNDED PRESCRIPTION CPAP supplies--mask per patient preference, tubing, humidifier as needed. G47.33, Z99.89 ZHAO on CPAP Blood-Glucose Meter monitoring kit Glucose Meter of Choice (covered by [employer]) - Kit - Dx: Type 2 DM - Uncontrolled E11.65, Insulin Yes blood sugar diagnostic (FREESTYLE LITE STRIPS) test strip Test blood sugars 5 times per day and as needed. Dx: E11.65; Insulin: yes Incontinence Pad, Liner, Disp pads Change pad 3 to 5 times daily. N39.46 COMPOUNDED PRESCRIPTION Bilateral compression Knee Hi 20-30 mm. ICD 10; 459.81; 782.3 Compression Knee Highs KNEE HIGH COMPRESSION STOCKINGS 30-40 MM. DX: (I87.8/459.81) Venous stasis (R60.0782.3) Bilateral edema of lower extremity Lancets (FREESTYLE LANCETS) lancets tests sugar 4 to 6 times daily DX:250.02 Insulin dependent (this is corrected RX) Cane Misc [place] 1 Each. Diagnosis: 724.2 Back pain Current Facility-Administered Medications Medication Dose Route Frequency perflutren lipid microspheres 1.3 mL in NaCl (PF) 0.9% 10 mL injection (DEFINITY) INTRAVENOUS DIRECTED PRN sodium chloride 0.9 % (flush) 10 mL (BD POSIFLUSH) 10 mL INTRAVENOUS DIRECTED PRN Review of Systems Objective BP 118/64 Pulse 84 Wt 127 kg (280 lb) LMP 11/28/2020 (LMP Unknown) BMI 52.91 kg/m Physical Exam Constitutional: Appearance: Normal appearance. She is obese. HENT: Head: Normocephalic. Eyes: Conjunctiva/sclera: Conjunctivae normal. Cardiovascular: Rate and Rhythm: Normal rate and regular rhythm. Heart sounds: Normal heart sounds. Pulmonary: Effort: Pulmonary effort is normal. Breath sounds: Normal breath sounds. Abdominal: General: Bowel sounds are normal. Palpations: Abdomen is soft. Tenderness: There is abdominal tenderness (RUQ and Left lateral). Skin: General: Skin is warm and dry. Coloration: Skin is not jaundiced. Neurological: General: No focal deficit present. Mental Status: She is alert and oriented to person, place, and time. Psychiatric: Mood and Affect: Mood normal. Behavior: Behavior normal. Thought Content: Thought content normal. Judgment: Judgment normal. Hemoglobin A1C (%) Date Value 11/29/2021 7.3 06/20/2021 8.2 10/19/2020 7.0 07/23/2020 7.3 06/05/2019 7.9 06/18/2018 6.6 US from [facility] Spleen 12.2X5.7X12.1 cm Liver 19.4cm Liver Coarsening over hepatic parenchymal echotexture Hepatomegaly and hepatic steatosis Assessment and Plan ASSESSMENT/PLAN: 1. Elevated AST (SGOT) - ICD9: 790.4, ICD10: R74.01 (primary diagnosis) Further evaluation and treatment as indicated. - HEP C AB IA W/CONF SCRN - HEP REMOTE PANEL BL - HEPATIC FUNCTION PNL - PROTHROMBIN TIME/PT - BAUDILIO GARCIA PANEL 2. Hepatosplenomegaly - ICD9: 571.8, ICD10: R16.2 Further evaluation and treatment as indicated. - HEP C AB IA W/CONF SCRN - HEP REMOTE PANEL BL - HEPATIC FUNCTION PNL - PROTHROMBIN TIME/PT - BAUDILIO GARCIA PANEL 3. Hepatic steatosis - ICD9: 571.8, ICD10: K76.0 noted above - HEP C AB IA W/CONF SCRN - HEP REMOTE PANEL BL - HEPATIC FUNCTION PNL - PROTHROMBIN TIME/PT - BAUDILIO GARCIA PANEL 4. Type 2 diabetes mellitus with diabetic neuropathy, with long-term current use of insulin (HCC) - ICD9: 250.60, 357.2, V58.67, ICD10: E11.40, Z79.4 Controlled. - Continue current medications - Encouraged regular aerobic exercise and weight loss - Needs to keep working on diet and exercise with lifestyle changes for effective weight loss as well as control of DM, and control of BP and lipids. - HGB A1C 5. Morbid obesity Continues efforts at weight loss. Has been losing weight since December last year--some ups and downs but continues to trend down from 292 December 2020 to 280 today. Aurora Macdonald MD documented in this encounter [facility] 11-16-2021 Miscellaneous Notes BEHAVIORAL HEALTH SOCIAL WORK CONSULT NOTE Service Date: November 16, 2021 Patient was identified by name and Patient: Malathi Brito Al Habil [address] [facility] [id number] (home) [phone] (cell) PCP: Aurora Macdonald MD [address] [facility] [id number] Patient identified for [facility] from: PCP (Dr Macdonald) Reason for referral: Resources Behavioral Health Resources: Psychology - talk therapy (Grief reaction) [facility] encounter type: Telephone Encounter Assessment: [facility] received a consult from Dr Macdonald, for psychology, to address Grief reaction [facility] reviewed Pt's chart/insurance [facility] contact Pt -Pt tearful on the phone -stating her 30yr old son last month unexpectedly Per Dr's note: Accidentally OD. Heroin and was in recovery. Was an overdose by a friend. Granddaughter 6 yo. Pt agreed to have resources sent in [facility] -thanked [facility] for calling - sent the following resources in [facility]: [facility] [phone] *Coleen vincent, bereavement counselor *no cost [place] [id number] [place] [phone] [facility] Family Counseling,[facility] [address] [place] [address] [facility] [address] [facility] [address] [place] [phone] [facility], [facility] [address] [place] [phone] *[facility] Grief Resource Night (Sunday of each month 6-7:30pm) Please join us for a monthly, Grief Resource Night at [facility] [facility] [employer]. Learn therapeutic techniques to [employer] in your journey and build relationships with others who are grieving. For more information please contact [email or web address] [address] [place] [address] Support Group Grief Share From Mourning to Carolann is a 13 session support group that will meet weekly. This journey involves video of leading experts in grief and recovery topics, workbooks for journaling and a small group discussion. From these you will receive comfort, answers and hope to help you move forward through your grief. If you are interested please visit their web site for a location near you. Crisis line [phone] -will f/u if no response Medications: Current Outpatient Medications on File Prior to Visit Medication Sig oxyCODONE IR (ROXICODONE) 10 mg tab Take 1 tablet by mouth twice daily for 30 days. May take one pill extra per day as needed for exacerbation of pain (not daily). Do not start before October 31, 2021. [START ON 11/30/2021] oxyCODONE IR (ROXICODONE) 10 mg tab Take 1 tablet by mouth twice daily for 30 days. May take one pill extra per day as needed for exacerbation of pain (not daily). Do not start before November 30, 2021. oxyCODONE IR (ROXICODONE) 10 mg tab Take 1 tablet by mouth twice daily for 30 days. May take one pill extra per day as needed for exacerbation of pain (not daily). Do not start before October 01, 2021. fluticasone-salmeterol HFA (ADVAIR HFA) 230-21 mcg/actuation inhaler Inhale 2 Puffs as instructed twice daily. albuterol HFA (PROVENTIL HFA, VENTOLIN HFA) 90 mcg/actuation inhaler Inhale 2 Puffs as instructed every 4 hours as needed for wheezing/shortness of breath. fluconazole (DIFLUCAN) 150 mg tablet Take by mouth. Take at onset of yeast infection. Repeat after 5 to 7 days if ongoing symptoms. May treat recurrent episodes as needed. omeprazole (PRILOSEC) 20 mg capsule Take 1 capsule by mouth daily before breakfast. 1/2 hr before meal. As directed. flash glucose sensor (FREESTYLE DUSTY 2 SENSOR) kit Check glucose 4 times a day or more as directed. Dx: ICD10: E11.40, Z79.4. Insulin: Yes. flash glucose scanning reader (FREESTYLE DUSTY 2 READER) Check glucose 4 times a day or more as directed. Dx: ICD10: E11.40, Z79.4. Insulin: Yes. insulin glargine (LANTUS SOLOSTAR U-100 INSULIN) 100 unit/mL (3 mL) Inject 120 Units subcutaneously daily at bedtime. Please dispense 15 pens (3 boxes at a time). ibuprofen (MOTRIN) 800 mg tablet Take 1 tablet by mouth every 8 hours as needed for pain. atenolol (TENORMIN) 25 mg tablet Take 1 tablet by mouth once daily. As directed insulin aspart U-100 (NOVOLOG FLEXPEN U-100 INSULIN) 100 unit/mL (3 mL) WITH FIRST BITE OF FOOD, 30 UNITS W/BREAKFAST, 30 UNITS W/LUNCH, 30 UNITS W/DINNER; MAY ADJUST WITH SLIDING SCALE GIVEN HIGH BLOOD SUGAR norethindrone (AYGESTIN) 5 mg tablet Take 1 tablet by mouth as directed. 1 tablet 3 times daily until bleeding stops then twice daily for 2 days then 1 tablet daily for 2 days. (Patient not taking: Reported on 03/30/2021 ) Cholecalciferol, Vitamin D3, 25 mcg (1,000 unit) cap Takes 1600 to 2000 units daily with supplement OTC DULoxetine (CYMBALTA) 30 mg capsule Take 1 capsule by mouth once daily. valsartan (DIOVAN) 40 mg tablet Take 1 tablet by mouth once daily. (Patient not taking: Reported on 06/20/2021 ) diclofenac (VOLTAREN) 1 % topical gel Apply 2 g to affected area four times daily. nystatin (MYCOSTATIN) cream Apply 1 application to affected area twice daily as needed. omega-3/dha/epa/dpa/fish oil (OMEGA-3 2100 ORAL) Take 1 tablet by mouth twice daily. ascorbic acid (VITAMIN C ORAL) Take 3,000 Units by mouth once daily. fluticasone (FLOVENT HFA) 220 mcg/actuation inhaler Inhale 2 Puffs as instructed twice daily. albuterol HFA (VENTOLIN HFA) 90 mcg/actuation inhaler Inhale 2 Puffs as instructed every 4 hours as needed for Wheezing/Shortness of Breath. Insulin [place], Disposable, (BD INSULIN PEN NEEDLE UF) 29 gauge x 1/2 Use 1 Needle For Each Dose 3-4 Times Daily With Novolog Pen For Meals and At Bedtime if Needed ergocalciferol 50,000 unit capsule (VITAMIN D2, DRISDOL) Take 1 capsule by mouth one time a week. Blood-Glucose Meter (FREESTYLE LITE METER) monitoring kit Check blood sugars as directed for controlled Type 2 DM without complication montelukast (SINGULAIR) 10 mg tablet Take 1 tablet by mouth daily at bedtime. hydroCHLOROthiazide (HYDRODIURIL, ESIDRIX) 25 mg tablet Take 1 tablet by mouth once daily. As needed for swelling from fluid retention (Patient not taking: Reported on 07/29/2021 ) cyclobenzaprine (FLEXERIL) 10 mg tablet Take 0.5-1 tablets by mouth twice daily as needed. mupirocin (BACTROBAN) 2 % ointment Apply 1 application to affected area three times daily. Location: torso wounds as directed till healed blood sugar diagnostic (BLOOD GLUCOSE TEST) test strip Test blood sugar(s) 5 times daily. (Test strips brand covered by [employer]) Dx: Type 2 DM - Uncontrolled E11.65 Insulin: Yes CPAP CPAP @ 13 cm of water with humidification. Mask (per patient preference) optional chin strap (if indicated) , filters, tubing, humidifier and lifetime supplies. EPR set at 3. (G47.33) ZHAO (obstructive sleep apnea) COMPOUNDED PRESCRIPTION CPAP supplies--mask per patient preference, tubing, humidifier as needed. G47.33, Z99.89 ZHAO on CPAP Blood-Glucose Meter monitoring kit Glucose Meter of Choice (covered by [employer]) - Kit - Dx: Type 2 DM - Uncontrolled E11.65, Insulin Yes blood sugar diagnostic (FREESTYLE LITE STRIPS) test strip Test blood sugars 5 times per day and as needed. Dx: E11.65; Insulin: yes Incontinence Pad, Liner, Disp pads Change pad 3 to 5 times daily. N39.46 COMPOUNDED PRESCRIPTION Bilateral compression Knee Hi 20-30 mm. ICD 10; 459.81; 782.3 Compression Knee Highs KNEE HIGH COMPRESSION STOCKINGS 30-40 MM. DX: (I87.8/459.81) Venous stasis (R60.0782.3) Bilateral edema of lower extremity Lancets (FREESTYLE LANCETS) lancets tests sugar 4 to 6 times daily DX:250.02 Insulin dependent (this is corrected RX) Cane Misc [place] 1 Each. Diagnosis: 724.2 Back pain Current Facility-Administered Medications on File Prior to Visit Medication perflutren lipid microspheres 1.3 mL in NaCl (PF) 0.9% 10 mL injection (DEFINITY) sodium chloride 0.9 % (flush) 10 mL (BD POSIFLUSH) Curbside: No Screening Tools: No Substance Use / Abuse: No Outcome / Plan / Referrals: Attempts to Outreach: 1 attempt Referral made: Psychology - External;Other Psychology-External referral type: Therapy;Support Group Reason for external referral: Wait times at [facility] too long Final Disposition: Resources given (11-16-21 Pt agreed to have resources sent in [employer] msg) Patient Discharged?: No Patient reported that caregiver was able to meet their needs today?: Yes Internal Referrals : No Reason for External Referrals : Wait is too long Intervention: Supportive Listening Provided referral information Resources Provided: Talk Therapy Other: support grps, crisis line Time Spent: 15 minutes LAZ Jackson documented in this encounter [facility] 11-16-2021 History of Present illness Narrative VIRTUAL VISIT PROGRESS NOTE This is a virtual visit using niid[employer]to video visit. It required patient-provider interaction for the medical decision making as documented below. Malathi Zambrano is a 51 year old female seen for follow up. Dicsussed that lost oldest child--. Accidental OD. 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 Was an overdose by drug from a friend. Granddaughter (his daughter) 6 yo. Wants referral for grief counseling. Had seen Dr. Morelos before. ?group therapy and/or one on one. Does not want to live but no SI or plan. Just hard to deal with his . [facility] never contacted her as we referred to her. Bariatric doctor did US abdomen. October 05? Told had enlarged liver and spleen. Abdominal US through [facility]. No plans for follow up noted. Prefers [facility] and not [facility]. HISTORY REVIEWED (electronic chart updated): PAST MEDICAL HISTORY Diagnosis Date Abdominal pain, left upper quadrant Abdominal pain, unspecified site Acquired spondylolisthesis 07/25/2010 Acute gastritis without mention of hemorrhage Asthma Calcaneal spur 10/15/2009 Cough DEPRESSIVE DISORDER NEC 06/15/2007 Depressive disorder, not elsewhere classified Diabetes mellitus without mention of complication Diabetes mellitus Diabetes mellitus without mention of complication Diabetes mellitus type 2 Displacement of lumbar intervertebral disc without myelopathy 12/30/2009 Esophageal reflux 10/01/2006 Esophagitis, unspecified Fibromyalgia 07/25/2010 Generalized anxiety disorder Anxiety, Generalized Hemorrhage of gastrointestinal tract, unspecified Hypertension Internal hemorrhoids without mention of complication Left carpal tunnel syndrome 09/11/2013 Lumbago 08/05/2008 Migraine 03/02/2009 Mixed stress and urge urinary incontinence Myalgia and myositis, unspecified Obesity, unspecified Obesity ZHAO (obstructive sleep apnea) 05/01/2011 uses C-PAP PMH - PAST MEDICAL HISTORY OF allergic syndrome; gets allergy shots PMH - PAST MEDICAL HISTORY OF bipolar Psoriasis and similar disorders Sleep apnea Spondylolysis, 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 Grissom saw in the past Vitamin D deficiency 11/29/2010 on calcitriol PAST SURGICAL HISTORY Procedure Laterality Date ABDOMINAL SURGERY HX DELIVERY ONLY 2001,2003 COLONOSCOPY FLX DX W/COLLJ SPEC WHEN PFRMD 02/05/2015 Colonoscopy out pt [facility] D+C 01/27/2021 IUD insertion- BENIGN PATHOLOGY EGD TRANSORAL BIOPSY SINGLE/MULTIPLE 05/02/2006 ESOPHAGOGASTRODUODENOSCOPY TRANSORAL DIAGNOSTIC 02/05/2015 EGD out pt [facility] ESOPHAGOGASTRODUODENOSCOPY TRANSORAL DIAGNOSTIC 01/13/2019 EGD HYSTEROSCOPY BX ENDOMETRIUM&/POLYPC W/WO D&C 08/08/2018 AUB, menorrhagia INCISE FINGER TENDON SHEATH Left 08/18/2021 Left trigger thumb release INCISION EXTENSOR TENDON SHEATH WRIST Right 11/17/2020 Right wrist 1st dorsal compartment release, synovectomy, 2nd dorsal release MIRENA IUD 01/27/2021 insertion PAST SURGICAL HISTORY OF 07/2005 carpal tunnel right hand PAST SURGICAL HISTORY OF 1974 upper lip - plastic surgery. PAST SURGICAL HISTORY OF 2010 right plantar fasciectomy SHX COSMETIC SURGERY SIGMOIDOSCOPY FLX DX W/COLLJ SPEC BR/WA IF PFRMD 05/22/2006 FAMILY HISTORY Problem Relation Age of Onset Diabetes Mother Asthma Mother Heart Mother Brain Cancer Mother Cancer Father AT 71 R/T BLADDER Heart Father Asthma Sister other (ulcers) Sister Lung Cancer Sister Social History Tobacco Use Smoking status: Former Smoker Types: Cigarettes Quit date: 06/04/1989 Years since quittin.4 Smokeless tobacco: Never Used Tobacco comment: social smoker in teens Vaping Use Vaping Use: Never used Substance Use Topics Alcohol use: No Drug use: No Current Outpatient Medications Medication Sig oxyCODONE IR (ROXICODONE) 10 mg tab Take 1 tablet by mouth twice daily for 30 days. May take one pill extra per day as needed for exacerbation of pain (not daily). Do not start before October 31, 2021. [START ON 11/30/2021] oxyCODONE IR (ROXICODONE) 10 mg tab Take 1 tablet by mouth twice daily for 30 days. May take one pill extra per day as needed for exacerbation of pain (not daily). Do not start before November 30, 2021. oxyCODONE IR (ROXICODONE) 10 mg tab Take 1 tablet by mouth twice daily for 30 days. May take one pill extra per day as needed for exacerbation of pain (not daily). Do not start before October 01, 2021. fluticasone-salmeterol HFA (ADVAIR HFA) 230-21 mcg/actuation inhaler Inhale 2 Puffs as instructed twice daily. albuterol HFA (PROVENTIL HFA, VENTOLIN HFA) 90 mcg/actuation inhaler Inhale 2 Puffs as instructed every 4 hours as needed for wheezing/shortness of breath. fluconazole (DIFLUCAN) 150 mg tablet Take by mouth. Take at onset of yeast infection. Repeat after 5 to 7 days if ongoing symptoms. May treat recurrent episodes as needed. omeprazole (PRILOSEC) 20 mg capsule Take 1 capsule by mouth daily before breakfast. 1/2 hr before meal. As directed. flash glucose sensor (FREESTYLE DUSTY 2 SENSOR) kit Check glucose 4 times a day or more as directed. Dx: ICD10: E11.40, Z79.4. Insulin: Yes. flash glucose scanning reader (FREESTYLE DUSTY 2 READER) Check glucose 4 times a day or more as directed. Dx: ICD10: E11.40, Z79.4. Insulin: Yes. insulin glargine (LANTUS SOLOSTAR U-100 INSULIN) 100 unit/mL (3 mL) Inject 120 Units subcutaneously daily at bedtime. Please dispense 15 pens (3 boxes at a time). ibuprofen (MOTRIN) 800 mg tablet Take 1 tablet by mouth every 8 hours as needed for pain. atenolol (TENORMIN) 25 mg tablet Take 1 tablet by mouth once daily. As directed insulin aspart U-100 (NOVOLOG FLEXPEN U-100 INSULIN) 100 unit/mL (3 mL) WITH FIRST BITE OF FOOD, 30 UNITS W/BREAKFAST, 30 UNITS W/LUNCH, 30 UNITS W/DINNER; MAY ADJUST WITH SLIDING SCALE GIVEN HIGH BLOOD SUGAR norethindrone (AYGESTIN) 5 mg tablet Take 1 tablet by mouth as directed. 1 tablet 3 times daily until bleeding stops then twice daily for 2 days then 1 tablet daily for 2 days. (Patient not taking: Reported on 03/30/2021 ) Cholecalciferol, Vitamin D3, 25 mcg (1,000 unit) cap Takes 1600 to 2000 units daily with supplement OTC DULoxetine (CYMBALTA) 30 mg capsule Take 1 capsule by mouth once daily. valsartan (DIOVAN) 40 mg tablet Take 1 tablet by mouth once daily. (Patient not taking: Reported on 06/20/2021 ) diclofenac (VOLTAREN) 1 % topical gel Apply 2 g to affected area four times daily. nystatin (MYCOSTATIN) cream Apply 1 application to affected area twice daily as needed. omega-3/dha/epa/dpa/fish oil (OMEGA-3 2100 ORAL) Take 1 tablet by mouth twice daily. ascorbic acid (VITAMIN C ORAL) Take 3,000 Units by mouth once daily. fluticasone (FLOVENT HFA) 220 mcg/actuation inhaler Inhale 2 Puffs as instructed twice daily. albuterol HFA (VENTOLIN HFA) 90 mcg/actuation inhaler Inhale 2 Puffs as instructed every 4 hours as needed for Wheezing/Shortness of Breath. Insulin [place], Disposable, (BD INSULIN PEN NEEDLE UF) 29 gauge x 1/2 Use 1 Needle For Each Dose 3-4 Times Daily With Novolog Pen For Meals and At Bedtime if Needed ergocalciferol 50,000 unit capsule (VITAMIN D2, DRISDOL) Take 1 capsule by mouth one time a week. Blood-Glucose Meter (FREESTYLE LITE METER) monitoring kit Check blood sugars as directed for controlled Type 2 DM without complication montelukast (SINGULAIR) 10 mg tablet Take 1 tablet by mouth daily at bedtime. hydroCHLOROthiazide (HYDRODIURIL, ESIDRIX) 25 mg tablet Take 1 tablet by mouth once daily. As needed for swelling from fluid retention (Patient not taking: Reported on 07/29/2021 ) cyclobenzaprine (FLEXERIL) 10 mg tablet Take 0.5-1 tablets by mouth twice daily as needed. mupirocin (BACTROBAN) 2 % ointment Apply 1 application to affected area three times daily. Location: torso wounds as directed till healed blood sugar diagnostic (BLOOD GLUCOSE TEST) test strip Test blood sugar(s) 5 times daily. (Test strips brand covered by [employer]) Dx: Type 2 DM - Uncontrolled E11.65 Insulin: Yes CPAP CPAP @ 13 cm of water with humidification. Mask (per patient preference) optional chin strap (if indicated) , filters, tubing, humidifier and lifetime supplies. EPR set at 3. (G47.33) ZHAO (obstructive sleep apnea) COMPOUNDED PRESCRIPTION CPAP supplies--mask per patient preference, tubing, humidifier as needed. G47.33, Z99.89 ZHAO on CPAP Blood-Glucose Meter monitoring kit Glucose Meter of Choice (covered by [employer]) - Kit - Dx: Type 2 DM - Uncontrolled E11.65, Insulin Yes blood sugar diagnostic (FREESTYLE LITE STRIPS) test strip Test blood sugars 5 times per day and as needed. Dx: E11.65; Insulin: yes Incontinence Pad, Liner, Disp pads Change pad 3 to 5 times daily. N39.46 COMPOUNDED PRESCRIPTION Bilateral compression Knee Hi 20-30 mm. ICD 10; 459.81; 782.3 Compression Knee Highs KNEE HIGH COMPRESSION STOCKINGS 30-40 MM. DX: (I87.8/459.81) Venous stasis (R60.0782.3) Bilateral edema of lower extremity Lancets (FREESTYLE LANCETS) lancets tests sugar 4 to 6 times daily DX:250.02 Insulin dependent (this is corrected RX) Cane Misc [place] 1 Each. Diagnosis: 724.2 Back pain Current Facility-Administered Medications Medication Dose Route Frequency perflutren lipid microspheres 1.3 mL in NaCl (PF) 0.9% 10 mL injection (DEFINITY) INTRAVENOUS DIRECTED PRN sodium chloride 0.9 % (flush) 10 mL (BD POSIFLUSH) 10 mL INTRAVENOUS DIRECTED PRN ALLERGIES Allergen Reactions Losartan Intolerance dizziness; tried in the past; even lowest dose causes dizziness Vicodin [Hydrocodon* GI Upset Amlodipine Intolerance Headache and stomach issues Codeine Antitussive* GI Upset Latex Rash reddness itching Lisinopril Cough Metformin GI Upset GI upset Relafen [Nabumetone] GI Upset REVIEW OF SYSTEMS: As noted in HPI PHYSICAL EXAMINATION: VIDEO EXAM: (if completed, performed via video enabled technology) GENERAL: alert and appropriate, in no distress, well-hydrated, well nourished, overweight, and depressed and tearfull HEAD: normocephalic, no abnormality or lesion noted EYES: no injection and visual acuity is grossly normal RESPIRATORY: breathing non-labored ASSESSMENT/PLAN: 1. Grief reaction - ICD9: 309.0, ICD10: F43.21 Emotional support given. Already on Cymbalta. Needing grief counseling. Further evaluation and treatment as indicated. - CONSULT TO [facility]ULT Aurora Macdonald MD There are no Patient Instructions on file for this visit. Aurora Macdonald MD documented in this encounter [facility] 10-04-2021 History of Present illness Narrative VIRTUAL VISIT PROGRESS NOTE This is a virtual visit using niid.to video visit. It required patient-provider interaction for the medical decision making as documented below. Malathi Gusman konrad Warren Calebyuan is a 51 year old female seen for 2 month follow up. Had endoscopy done in [facility] by bariatric surgeon. (Polyps seen in duodenum--no cancer noted; no H. Pylori; also has large hiatal hernia so that would be fixed when has bariatric surgery) Told them has had chronic left sided abdominal pain. Got worse on Ozempic--sometimes unbearable. Did not have actual vomiting. They told her to ask me about stopping it. Told might be gastroparesis. Noted a lot of bloating. Stopped Ozempic about 1.5 weeks ago. Pain is better but not as severe. Will get abdominal US tomorrow. Dr Spaulding did foot exam. Has bone spur on left. Got orthotics for both feet. Hoping will help. Right foot orthotic bothering her--will see if gets better then get back to him. Plantar fasciitis on right. Had surgery right foot and pain resolved. Singulair not taken routinely since allergies not too bad HISTORY REVIEWED (electronic chart updated): PAST MEDICAL HISTORY Diagnosis Date Abdominal pain, left upper quadrant Abdominal pain, unspecified site Acquired spondylolisthesis 07/25/2010 Acute gastritis without mention of hemorrhage Asthma Calcaneal spur 10/15/2009 Cough DEPRESSIVE DISORDER NEC 06/15/2007 Depressive disorder, not elsewhere classified Diabetes mellitus without mention of complication Diabetes mellitus Diabetes mellitus without mention of complication Diabetes mellitus type 2 Displacement of lumbar intervertebral disc without myelopathy 12/30/2009 Esophageal reflux 10/01/2006 Esophagitis, unspecified Fibromyalgia 07/25/2010 Generalized anxiety disorder Anxiety, Generalized Hemorrhage of gastrointestinal tract, unspecified Hypertension Internal hemorrhoids without mention of complication Left carpal tunnel syndrome 09/11/2013 Lumbago 08/05/2008 Migraine 03/02/2009 Mixed stress and urge urinary incontinence Myalgia and myositis, unspecified Obesity, unspecified Obesity ZHAO (obstructive sleep apnea) 05/01/2011 uses C-PAP PMH - PAST MEDICAL HISTORY OF allergic syndrome; gets allergy shots PMH - PAST MEDICAL HISTORY OF bipolar Psoriasis and similar disorders Sleep apnea Spondylolysis, 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 Grissom saw in the past Vitamin D deficiency 11/29/2010 on calcitriol PAST SURGICAL HISTORY Procedure Laterality Date ABDOMINAL SURGERY HX DELIVERY ONLY 2001,2003 COLONOSCOPY FLX DX W/COLLJ SPEC WHEN PFRMD 02/05/2015 Colonoscopy out pt [facility] D+C 01/27/2021 IUD insertion- BENIGN PATHOLOGY EGD TRANSORAL BIOPSY SINGLE/MULTIPLE 05/02/2006 ESOPHAGOGASTRODUODENOSCOPY TRANSORAL DIAGNOSTIC 02/05/2015 EGD out pt [facility] ESOPHAGOGASTRODUODENOSCOPY TRANSORAL DIAGNOSTIC 01/13/2019 EGD HYSTEROSCOPY BX ENDOMETRIUM&/POLYPC W/WO D&C 08/08/2018 AUB, menorrhagia INCISE FINGER TENDON SHEATH Left 08/18/2021 Left trigger thumb release INCISION EXTENSOR TENDON SHEATH WRIST Right 11/17/2020 Right wrist 1st dorsal compartment release, synovectomy, 2nd dorsal release MIRENA IUD 01/27/2021 insertion PAST SURGICAL HISTORY OF 07/2005 carpal tunnel right hand PAST SURGICAL HISTORY OF 1973 upper lip - plastic surgery. PAST SURGICAL HISTORY OF 2010 right plantar fasciectomy SHX COSMETIC SURGERY SIGMOIDOSCOPY FLX DX W/COLLJ SPEC BR/WA IF PFRMD 05/22/2006 FAMILY HISTORY Problem Relation Age of Onset Diabetes Mother Asthma Mother Heart Mother Brain Cancer Mother Cancer Father AT 71 R/T BLADDER Heart Father Asthma Sister other (ulcers) Sister Lung Cancer Sister Social History Tobacco Use Smoking status: Former Smoker Types: Cigarettes Quit date: 06/04/1989 Years since quittin.3 Smokeless tobacco: Never Used Tobacco comment: social smoker in teens Vaping Use Vaping Use: Never used Substance Use Topics Alcohol use: No Drug use: No Current Outpatient Medications Medication Sig oxyCODONE IR (ROXICODONE) 10 mg tab Take 1 tablet by mouth twice daily for 30 days. May take one pill extra per day as needed for exacerbation of pain (not daily). Do not start before October 01, 2021. fluticasone-salmeterol HFA (ADVAIR HFA) 230-21 mcg/actuation inhaler Inhale 2 Puffs as instructed twice daily. albuterol HFA (PROVENTIL HFA, VENTOLIN HFA) 90 mcg/actuation inhaler Inhale 2 Puffs as instructed every 4 hours as needed for wheezing/shortness of breath. semaglutide (OZEMPIC) 0.25 mg or 0.5 mg(2 mg/1.5 mL) pen injector Inject 0.25 mg subcutaneously one time a week. fluconazole (DIFLUCAN) 150 mg tablet Take by mouth. Take at onset of yeast infection. Repeat after 5 to 7 days if ongoing symptoms. May treat recurrent episodes as needed. oxyCODONE IR (ROXICODONE) 10 mg tab Take 1 tablet by mouth twice daily for 30 days. May take one pill extra per day as needed for exacerbation of pain (not daily). Do not start before September 01, 2021. omeprazole (PRILOSEC) 20 mg capsule Take 1 capsule by mouth daily before breakfast. 1/2 hr before meal. As directed. flash glucose sensor (FREESTYLE DUSTY 2 SENSOR) kit Check glucose 4 times a day or more as directed. Dx: ICD10: E11.40, Z79.4. Insulin: Yes. flash glucose scanning reader (FREESTYLE DUSTY 2 READER) Check glucose 4 times a day or more as directed. Dx: ICD10: E11.40, Z79.4. Insulin: Yes. insulin glargine (LANTUS SOLOSTAR U-100 INSULIN) 100 unit/mL (3 mL) Inject 120 Units subcutaneously daily at bedtime. Please dispense 15 pens (3 boxes at a time). oxyCODONE IR (ROXICODONE) 10 mg tab Take 1 tablet by mouth twice daily for 30 days. May take one pill extra per day as needed for exacerbation of pain (not daily). Do not start before April 05, 2021. ibuprofen (MOTRIN) 800 mg tablet Take 1 tablet by mouth every 8 hours as needed for pain. atenolol (TENORMIN) 25 mg tablet Take 1 tablet by mouth once daily. As directed insulin aspart U-100 (NOVOLOG FLEXPEN U-100 INSULIN) 100 unit/mL (3 mL) WITH FIRST BITE OF FOOD, 30 UNITS W/BREAKFAST, 30 UNITS W/LUNCH, 30 UNITS W/DINNER; MAY ADJUST WITH SLIDING SCALE GIVEN HIGH BLOOD SUGAR norethindrone (AYGESTIN) 5 mg tablet Take 1 tablet by mouth as directed. 1 tablet 3 times daily until bleeding stops then twice daily for 2 days then 1 tablet daily for 2 days. (Patient not taking: Reported on 03/30/2021 ) Cholecalciferol, Vitamin D3, 25 mcg (1,000 unit) cap Takes 1600 to 2000 units daily with supplement OTC DULoxetine (CYMBALTA) 30 mg capsule Take 1 capsule by mouth once daily. oxyCODONE IR (ROXICODONE) 10 mg tab Take 1 tablet by mouth twice daily for 30 days. May take one pill extra per day as needed for exacerbation of pain (not daily). Do not start before January 03, 2021. valsartan (DIOVAN) 40 mg tablet Take 1 tablet by mouth once daily. (Patient not taking: Reported on 06/20/2021 ) diclofenac (VOLTAREN) 1 % topical gel Apply 2 g to affected area four times daily. nystatin (MYCOSTATIN) cream Apply 1 application to affected area twice daily as needed. omega-3/dha/epa/dpa/fish oil (OMEGA-3 2100 ORAL) Take 1 tablet by mouth twice daily. ascorbic acid (VITAMIN C ORAL) Take 3,000 Units by mouth once daily. fluticasone (FLOVENT HFA) 220 mcg/actuation inhaler Inhale 2 Puffs as instructed twice daily. albuterol HFA (VENTOLIN HFA) 90 mcg/actuation inhaler Inhale 2 Puffs as instructed every 4 hours as needed for Wheezing/Shortness of Breath. Insulin [place], Disposable, (BD INSULIN PEN NEEDLE UF) 29 gauge x 1/2 Use 1 Needle For Each Dose 3-4 Times Daily With Novolog Pen For Meals and At Bedtime if Needed ergocalciferol 50,000 unit capsule (VITAMIN D2, DRISDOL) Take 1 capsule by mouth one time a week. Blood-Glucose Meter (FREESTYLE LITE METER) monitoring kit Check blood sugars as directed for controlled Type 2 DM without complication montelukast (SINGULAIR) 10 mg tablet Take 1 tablet by mouth daily at bedtime. hydroCHLOROthiazide (HYDRODIURIL, ESIDRIX) 25 mg tablet Take 1 tablet by mouth once daily. As needed for swelling from fluid retention (Patient not taking: Reported on 07/29/2021 ) cyclobenzaprine (FLEXERIL) 10 mg tablet Take 0.5-1 tablets by mouth twice daily as needed. mupirocin (BACTROBAN) 2 % ointment Apply 1 application to affected area three times daily. Location: torso wounds as directed till healed blood sugar diagnostic (BLOOD GLUCOSE TEST) test strip Test blood sugar(s) 5 times daily. (Test strips brand covered by [employer]) Dx: Type 2 DM - Uncontrolled E11.65 Insulin: Yes CPAP CPAP @ 13 cm of water with humidification. Mask (per patient preference) optional chin strap (if indicated) , filters, tubing, humidifier and lifetime supplies. EPR set at 3. (G47.33) ZHAO (obstructive sleep apnea) COMPOUNDED PRESCRIPTION CPAP supplies--mask per patient preference, tubing, humidifier as needed. G47.33, Z99.89 ZHAO on CPAP Blood-Glucose Meter monitoring kit Glucose Meter of Choice (covered by [place] insurance) - Kit - Dx: Type 2 DM - Uncontrolled E11.65, Insulin Yes blood sugar diagnostic (FREESTYLE LITE STRIPS) test strip Test blood sugars 5 times per day and as needed. Dx: E11.65; Insulin: yes Incontinence Pad, Liner, Disp pads Change pad 3 to 5 times daily. N39.46 COMPOUNDED PRESCRIPTION Bilateral compression Knee Hi 20-30 mm. ICD 10; 459.81; 782.3 Compression Knee Highs KNEE HIGH COMPRESSION STOCKINGS 30-40 MM. DX: (I87.8/459.81) Venous stasis (R60.0782.3) Bilateral edema of lower extremity Lancets (FREESTYLE LANCETS) lancets tests sugar 4 to 6 times daily DX:250.02 Insulin dependent (this is corrected RX) Cane Misc [place] 1 Each. Diagnosis: 724.2 Back pain Current Facility-Administered Medications Medication Dose Route Frequency perflutren lipid microspheres 1.3 mL in NaCl (PF) 0.9% 10 mL injection (DEFINITY) INTRAVENOUS DIRECTED PRN sodium chloride 0.9 % (flush) 10 mL (BD POSIFLUSH) 10 mL INTRAVENOUS DIRECTED PRN ALLERGIES Allergen Reactions Losartan Intolerance dizziness; tried in the past; even lowest dose causes dizziness Vicodin [Hydrocodon* GI Upset Amlodipine Intolerance Headache and stomach issues Codeine Antitussive* GI Upset Latex Rash reddness itching Lisinopril Cough Metformin GI Upset GI upset Relafen [Nabumetone] GI Upset REVIEW OF SYSTEMS: As noted in HPI PHYSICAL EXAMINATION: VIDEO EXAM: (if completed, performed via video enabled technology) GENERAL: alert and appropriate, in no distress, well-hydrated, well nourished and happy, smiling, interactive HEAD: normocephalic, no abnormality or lesion noted EYES: no injection and visual acuity is grossly normal NECK: full ROM, no cervical LNs noted ASSESSMENT/PLAN: Encounter Diagnosis ICD-10-CM 1. LUQ pain R10.12 CONSULT TO GASTROENTEROLOGY Noted had before Ozempic and became more persistent after started Ozempic.Getting better since stopped Ozempic 2. Gastroesophageal reflux disease without esophagitis K21.9 CONSULT TO GASTROENTEROLOGY 3. Nausea R11.0 CONSULT TO GASTROENTEROLOGY 4. Hiatal hernia K44.9 CONSULT TO GASTROENTEROLOGY 5. Type 2 diabetes mellitus with diabetic neuropathy, with long-term current use of insulin ([facility]) E11.40 CONSULT TO GASTROENTEROLOGY Z79.4 6. Displacement of lumbar intervertebral disc without myelopathy M51.26 oxyCODONE IR (ROXICODONE) 10 mg tab oxyCODONE IR (ROXICODONE) 10 mg tab 7. Spondylolysis, lumbosacral M43.07 oxyCODONE IR (ROXICODONE) 10 mg tab oxyCODONE IR (ROXICODONE) 10 mg tab 8. Coccygeal pain M53.3 oxyCODONE IR (ROXICODONE) 10 mg tab oxyCODONE IR (ROXICODONE) 10 mg tab 9. Class 3 severe obesity due to excess calories with serious comorbidity and body mass index (BMI) of 50.0 to 59.9 in adult ([facility]) E66.01 Z68.43 1. LUQ pain - ICD9: 789.02, ICD10: R10.12 (primary diagnosis) As noted above. Though better after stopping Ozempic, needs evaluation per Bariatric surgeon. Note that has UGI scheduled as well as US abdomen tomorrow 10/05. They discussed with her getting a gastric emptying scan to rule out gastroparesis. Will refer to Dr. Truong in [place] since patient prefers to stay in [place]. - CONSULT TO GASTROENTEROLOGY 2. Gastroesophageal reflux disease without esophagitis - ICD9: 530.81, ICD10: K21.9 - Noted was told has large hiatal hernia noted on EGD by Bariatric surgeon. - On PPI-- omeprazole 20 mg daily. - CONSULT TO GASTROENTEROLOGY 3. Nausea - ICD9: 787.02, ICD10: R11.0 Not sure if from reflux. Further evaluation and treatment as indicated. - CONSULT TO GASTROENTEROLOGY 4. Hiatal hernia - ICD9: 553.3, ICD10: K44.9 As noted above - CONSULT TO GASTROENTEROLOGY 5. Type 2 diabetes mellitus with diabetic neuropathy, with long-term current use of insulin ([facility]) - ICD9: 250.60, 357.2, V58.67, ICD10: E11.40, Z79.4 Continue present management. Hemoglobin A1C (%) Date Value 06/20/2021 8.2 10/19/2020 7.0 07/23/2020 7.3 06/05/2019 7.9 06/18/2018 6.6 See if has gastroparesis. - CONSULT TO GASTROENTEROLOGY 6. Displacement of lumbar intervertebral disc without myelopathy - ICD9: 722.10, ICD10: M51.26 Stable with control of chronic pain. Sometimes gets severe, but medication still helps. No signs of diversion or abuse of medication(s); no adverse effects. Continue present management. Hoping weight loss will help decrease pain so can titrate down or even off pain med - OXYCODONE 10 MG TABLET - OXYCODONE 10 MG TABLET 7. Spondylolysis, lumbosacral - ICD9: 738.4, ICD10: M43.07 As noted above - OXYCODONE 10 MG TABLET - OXYCODONE 10 MG TABLET 8. Coccygeal pain - ICD9: 724.79, ICD10: M53.3 As noted above - OXYCODONE 10 MG TABLET - OXYCODONE 10 MG TABLET 9. Morbid Obesity--On track for getting bariatric surgery, Juany will be 6th month on program and after that, if all going well with the program, can get surgery scheduled. She is working on the high protein, low carb diet. There are no Patient Instructions on file for this visit. I spent a total of at least 37 minutes on the date of the service which included preparing to see the patient, [id number] patient care, completing clinical documentation, obtaining and/or reviewing separately obtained history, performing a medically appropriate examination and counseling and educating the patient/family/caregiver Aurora Macdonald MD 9:04 documented in this encounter [facility] 09-29-2021 Miscellaneous Notes Has May appointment so only needs 1 RX now. The following approved medication requests have been transmitted electronically. Signed Prescriptions Disp Refills oxyCODONE IR (ROXICODONE) 10 mg tab 80 tablet 0 Sig: Take 1 tablet by mouth twice daily for 30 days. May take one pill extra per day as needed for exacerbation of pain (not daily). Do not start before October 01, 2021. MARVA Class: C-II MARC: No Authorizing Provider: AURORA MACDONALD MD Patient has been identified by name and date of : Yes Patient phones for refill(s): Pending Prescriptions Disp Refills OXYCODONE 10 MG TABLET 80 tablet 0 Sig: Take 1 tablet by mouth twice daily for 30 days. May take one pill extra per day as needed for exacerbation of pain (not daily). MARVA Class: C-II MARC: No OXYCODONE 10 MG TABLET 80 tablet 0 Sig: Take 1 tablet by mouth twice daily for 30 days. May take one pill extra per day as needed for exacerbation of pain (not daily). MARVA Class: C-II MARC: No Date of last office visit in primary care: 06/28/21 next apt 10/04/21 Last 2 Encounter Wt Readings: Date: Wt: 07/29/2021 130.6 kg (288 lb) 07/27/2021 129.7 kg (286 lb) Previous labs/tests for medication: Not applicable Please advise. Thank you. Sue Marcial LPN documented in this encounter [facility] 09-20-2021 History of Present illness Narrative Images from the original note were not included. VIRTUAL VISIT PROGRESS NOTE This is a virtual visit using niid.to video visit. It required patient-provider interaction for the medical decision making as documented below. Malathi Zambrano is a 51 year old female seen for pre-op clearance for gastric bypass surgery. HPI: Malathi Zambrano 51-year-old morbidly obese female with PMH significant for DM 2, allergies requiring immunotherapy, psoriasis, asthma, HTN, ZHAO last seen in pulmonary clinic 02/2021 to reestablish care. Prior to that visit she was last seen in pulmonary clinic 2013, referred to asthma clinic for severe persistent asthma. She was on immunotherapy at that time and her asthma regimen was changed to ICS/LABA with the addition of montelukast. She had not followed up since then. Had her reestablish visit with pa in February, pulmonary function tests were only significant for restriction from her obesity and exhaled nitric oxide was slightly elevated at 27 ppb. I recommended the addition of beta agonist but she was reluctant to use due to previous issues with palpitations. She was willing to retry inhaled therapy. In the past she has been intolerant of powdered form inhalers. I sent in prescription for Advair HFA 230/21, ordered IgE and eosinophil count as well has recommended weight loss. She did not have her testing done nor did she follow-up. She was scheduled for visit in Jul specifically for pre-op clearance but she overslept and missed her appt. She called the office, demanding a virtual visit within 24-48 hours. She was given the number to the [facility] office. States that her insurance would not cover the Advair HFA and she was tried on Symbicort. Symbicort caused severe coughing. She is currently back to using her Flovent 220 mcg 2 times a day. No significant coughing but she is has some persistent shortness of breath, mainly with exertion. She has been using her albuterol on occasion but not daily. No recent upper respiratory infection or hospitalization for her asthma. Her most recent pulmonary function test show no obstruction, mild restriction related to her obesity, improvement in small airways obstruction postbronchodilator and normal diffusing capacity. Exhaled nitric oxide level remains elevated in the intermediate range. RESPIRATORY THERAPY ORAL EXHALED NITRIC OXIDE SERVICE DATE: 07/27/2021 SERVICE TIME: 2:08 PM Oral Exhaled Nitric Oxide measurement: 38.0 (ppb) (A) PFT 07/27/21: Review of pulmonary function test show no significant obstruction, improvement in small airways obstruction with bronchodilator, mild restriction related to her obesity and normal diffusing capacity HISTORY REVIEWED (electronic chart updated): PAST MEDICAL HISTORY Diagnosis Date Abdominal pain, left upper quadrant Abdominal pain, unspecified site Acquired spondylolisthesis 07/25/2010 Acute gastritis without mention of hemorrhage Asthma Calcaneal spur 10/15/2009 Cough DEPRESSIVE DISORDER NEC 06/15/2007 Depressive disorder, not elsewhere classified Diabetes mellitus without mention of complication Diabetes mellitus Diabetes mellitus without mention of complication Diabetes mellitus type 2 Displacement of lumbar intervertebral disc without myelopathy 12/30/2009 Esophageal reflux 10/01/2006 Esophagitis, unspecified Fibromyalgia 07/25/2010 Generalized anxiety disorder Anxiety, Generalized Hemorrhage of gastrointestinal tract, unspecified Hypertension Internal hemorrhoids without mention of complication Left carpal tunnel syndrome 09/11/2013 Lumbago 08/05/2008 Migraine 03/02/2009 Mixed stress and urge urinary incontinence Myalgia and myositis, unspecified Obesity, unspecified Obesity ZHAO (obstructive sleep apnea) 05/01/2011 uses C-PAP PMH - PAST MEDICAL HISTORY OF allergic syndrome; gets allergy shots PMH - PAST MEDICAL HISTORY OF bipolar Psoriasis and similar disorders Sleep apnea Spondylolysis, 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 Grissom saw in the past Vitamin D deficiency 11/29/2010 on calcitriol PAST SURGICAL HISTORY Procedure Laterality Date ABDOMINAL SURGERY HX DELIVERY ONLY 2001,2003 COLONOSCOPY FLX DX W/COLLJ SPEC WHEN PFRMD 02/05/2015 Colonoscopy out pt [facility] D+C 01/27/2021 IUD insertion- BENIGN PATHOLOGY EGD TRANSORAL BIOPSY SINGLE/MULTIPLE 05/02/2006 ESOPHAGOGASTRODUODENOSCOPY TRANSORAL DIAGNOSTIC 02/05/2015 EGD out pt [facility] ESOPHAGOGASTRODUODENOSCOPY TRANSORAL DIAGNOSTIC 01/13/2019 EGD HYSTEROSCOPY BX ENDOMETRIUM&/POLYPC W/WO D&C 08/08/2018 AUB, menorrhagia INCISE FINGER TENDON SHEATH Left 08/18/2021 Left trigger thumb release INCISION EXTENSOR TENDON SHEATH WRIST Right 11/17/2020 Right wrist 1st dorsal compartment release, synovectomy, 2nd dorsal release MIRENA IUD 01/27/2021 insertion PAST SURGICAL HISTORY OF 07/2005 carpal tunnel right hand PAST SURGICAL HISTORY OF 1973 upper lip - plastic surgery. PAST SURGICAL HISTORY OF 2010 right plantar fasciectomy SHX COSMETIC SURGERY SIGMOIDOSCOPY FLX DX W/COLLJ SPEC BR/WA IF PFRMD 05/22/2006 FAMILY HISTORY Problem Relation Age of Onset Diabetes Mother Asthma Mother Heart Mother Brain Cancer Mother Cancer Father AT 71 R/T BLADDER Heart Father Asthma Sister other (ulcers) Sister Lung Cancer Sister Social History Tobacco Use Smoking status: Former Smoker Types: Cigarettes Quit date: 06/04/1989 Years since quittin.3 Smokeless tobacco: Never Used Tobacco comment: social smoker in teens Vaping Use Vaping Use: Never used Substance Use Topics Alcohol use: No Drug use: No Current Outpatient Medications Medication Sig semaglutide (OZEMPIC) 0.25 mg or 0.5 mg(2 mg/1.5 mL) pen injector Inject 0.25 mg subcutaneously one time a week. oxyCODONE IR (ROXICODONE) 10 mg tab Take 1 tablet by mouth twice daily for 30 days. May take one pill extra per day as needed for exacerbation of pain (not daily). Do not start before September 01, 2021. omeprazole (PRILOSEC) 20 mg capsule Take 1 capsule by mouth daily before breakfast. 1/2 hr before meal. As directed. insulin glargine (LANTUS SOLOSTAR U-100 INSULIN) 100 unit/mL (3 mL) Inject 120 Units subcutaneously daily at bedtime. Please dispense 15 pens (3 boxes at a time). ibuprofen (MOTRIN) 800 mg tablet Take 1 tablet by mouth every 8 hours as needed for pain. atenolol (TENORMIN) 25 mg tablet Take 1 tablet by mouth once daily. As directed insulin aspart U-100 (NOVOLOG FLEXPEN U-100 INSULIN) 100 unit/mL (3 mL) WITH FIRST BITE OF FOOD, 30 UNITS W/BREAKFAST, 30 UNITS W/LUNCH, 30 UNITS W/DINNER; MAY ADJUST WITH SLIDING SCALE GIVEN HIGH BLOOD SUGAR DULoxetine (CYMBALTA) 30 mg capsule Take 1 capsule by mouth once daily. diclofenac (VOLTAREN) 1 % topical gel Apply 2 g to affected area four times daily. omega-3/dha/epa/dpa/fish oil (OMEGA-3 2100 ORAL) Take 1 tablet by mouth twice daily. ascorbic acid (VITAMIN C ORAL) Take 3,000 Units by mouth once daily. fluticasone (FLOVENT HFA) 220 mcg/actuation inhaler Inhale 2 Puffs as instructed twice daily. albuterol HFA (VENTOLIN HFA) 90 mcg/actuation inhaler Inhale 2 Puffs as instructed every 4 hours as needed for Wheezing/Shortness of Breath. ergocalciferol 50,000 unit capsule (VITAMIN D2, DRISDOL) Take 1 capsule by mouth one time a week. montelukast (SINGULAIR) 10 mg tablet Take 1 tablet by mouth daily at bedtime. cyclobenzaprine (FLEXERIL) 10 mg tablet Take 0.5-1 tablets by mouth twice daily as needed. fluticasone-salmeterol HFA (ADVAIR HFA) 230-21 mcg/actuation inhaler Inhale 2 Puffs as instructed twice daily. albuterol HFA (PROVENTIL HFA, VENTOLIN HFA) 90 mcg/actuation inhaler Inhale 2 Puffs as instructed every 4 hours as needed for wheezing/shortness of breath. fluconazole (DIFLUCAN) 150 mg tablet Take by mouth. Take at onset of yeast infection. Repeat after 5 to 7 days if ongoing symptoms. May treat recurrent episodes as needed. oxyCODONE IR (ROXICODONE) 10 mg tab Take 1 tablet by mouth twice daily for 30 days. May take one pill extra per day as needed for exacerbation of pain (not daily). Do not start before July 02, 2021. flash glucose sensor (FREESTYLE DUSTY 2 SENSOR) kit Check glucose 4 times a day or more as directed. Dx: ICD10: E11.40, Z79.4. Insulin: Yes. flash glucose scanning reader (FREESTYLE DUSTY 2 READER) Check glucose 4 times a day or more as directed. Dx: ICD10: E11.40, Z79.4. Insulin: Yes. oxyCODONE IR (ROXICODONE) 10 mg tab Take 1 tablet by mouth twice daily for 30 days. May take one pill extra per day as needed for exacerbation of pain (not daily). Do not start before April 05, 2021. norethindrone (AYGESTIN) 5 mg tablet Take 1 tablet by mouth as directed. 1 tablet 3 times daily until bleeding stops then twice daily for 2 days then 1 tablet daily for 2 days. (Patient not taking: Reported on 03/30/2021 ) Cholecalciferol, Vitamin D3, 25 mcg (1,000 unit) cap Takes 1600 to 2000 units daily with supplement OTC oxyCODONE IR (ROXICODONE) 10 mg tab Take 1 tablet by mouth twice daily for 30 days. May take one pill extra per day as needed for exacerbation of pain (not daily). Do not start before January 03, 2021. valsartan (DIOVAN) 40 mg tablet Take 1 tablet by mouth once daily. (Patient not taking: Reported on 06/20/2021 ) nystatin (MYCOSTATIN) cream Apply 1 application to affected area twice daily as needed. Insulin [place], Disposable, (BD INSULIN PEN NEEDLE UF) 29 gauge x 1/2 Use 1 Needle For Each Dose 3-4 Times Daily With Novolog Pen For Meals and At Bedtime if Needed Blood-Glucose Meter (FREESTYLE LITE METER) monitoring kit Check blood sugars as directed for controlled Type 2 DM without complication hydroCHLOROthiazide (HYDRODIURIL, ESIDRIX) 25 mg tablet Take 1 tablet by mouth once daily. As needed for swelling from fluid retention (Patient not taking: Reported on 07/29/2021 ) mupirocin (BACTROBAN) 2 % ointment Apply 1 application to affected area three times daily. Location: torso wounds as directed till healed blood sugar diagnostic (BLOOD GLUCOSE TEST) test strip Test blood sugar(s) 5 times daily. (Test strips brand covered by [employer]) Dx: Type 2 DM - Uncontrolled E11.65 Insulin: Yes CPAP CPAP @ 13 cm of water with humidification. Mask (per patient preference) optional chin strap (if indicated) , filters, tubing, humidifier and lifetime supplies. EPR set at 3. (G47.33) ZHAO (obstructive sleep apnea) COMPOUNDED PRESCRIPTION CPAP supplies--mask per patient preference, tubing, humidifier as needed. G47.33, Z99.89 ZHAO on CPAP Blood-Glucose Meter monitoring kit Glucose Meter of Choice (covered by [employer]) - Kit - Dx: Type 2 DM - Uncontrolled E11.65, Insulin Yes blood sugar diagnostic (FREESTYLE LITE STRIPS) test strip Test blood sugars 5 times per day and as needed. Dx: E11.65; Insulin: yes Incontinence Pad, Liner, Disp pads Change pad 3 to 5 times daily. N39.46 COMPOUNDED PRESCRIPTION Bilateral compression Knee Hi 20-30 mm. ICD 10; 459.81; 782.3 Compression Knee Highs KNEE HIGH COMPRESSION STOCKINGS 30-40 MM. DX: (I87.8/459.81) Venous stasis (R60.0782.3) Bilateral edema of lower extremity Lancets (FREESTYLE LANCETS) lancets tests sugar 4 to 6 times daily DX:250.02 Insulin dependent (this is corrected RX) Cane Misc [place] 1 Each. Diagnosis: 724.2 Back pain Current Facility-Administered Medications Medication Dose Route Frequency perflutren lipid microspheres 1.3 mL in NaCl (PF) 0.9% 10 mL injection (DEFINITY) INTRAVENOUS DIRECTED PRN sodium chloride 0.9 % (flush) 10 mL (BD POSIFLUSH) 10 mL INTRAVENOUS DIRECTED PRN ALLERGIES Allergen Reactions Losartan Intolerance dizziness; tried in the past; even lowest dose causes dizziness Vicodin [Hydrocodon* GI Upset Amlodipine Intolerance Headache and stomach issues Codeine Antitussive* GI Upset Latex Rash reddness itching Lisinopril Cough Metformin GI Upset GI upset Relafen [Nabumetone] GI Upset REVIEW OF SYSTEMS: No fevers, chills or other constitutional symptoms No nasal congestion or drainage at this time Pulmonary: See HPI No chest pain, palpitations, increased lower extremity edema No GI complaints PHYSICAL EXAMINATION: VIDEO EXAM: (if completed, performed via video enabled technology) GENERAL: Morbidly obese female in no visual acute distress RESPIRATORY: Not labored, no audible wheezing ASSESSMENT/PLAN: 1. Mild persistent asthma, uncomplicated -Change inhaled therapy to Advair HFA 230/21 with continued as needed albuterol -Sent in prescriptions for both medications -Will likely have to do a formulary exception for her Advair -Continue Singulair 2. Morbid obesity -From a pulmonary standpoint, able to proceed with bariatric surgery as planned Katie Wilde MD documented in this encounter [facility] 09-12-2021 History of Present illness Narrative Vincenzo Fonseca MD Department of Orthopaedics Orthopaedics [address] [facility] [address] Dept: [phone] Dept August 25, 2021 CHIEF COMPLAINT: Post Op and Follow Up of the Left Hand and 1 wk postop l trigger thumb release. HPI Patient is about 1 week after her trigger thumb release. Doing quite well. ASSESSMENT: M65.312 Trigger finger of left thumb (primary encounter diagnosis) SUMMARY/PLAN: Sutures removed today. Continue gentle activities with the hand. Exam: Sutures intact without any redness or drainage. No locking catching or clicking of the digit. Neurovascular exam intact. Supporting Information Below: Medications: Current Outpatient Medications Medication Sig semaglutide (OZEMPIC) 0.25 mg or 0.5 mg(2 mg/1.5 mL) pen injector Inject 0.25 mg subcutaneously one time a week. fluconazole (DIFLUCAN) 150 mg tablet Take by mouth. Take at onset of yeast infection. Repeat after 5 to 7 days if ongoing symptoms. May treat recurrent episodes as needed. oxyCODONE IR (ROXICODONE) 10 mg tab Take 1 tablet by mouth twice daily for 30 days. May take one pill extra per day as needed for exacerbation of pain (not daily). Do not start before September 01, 2021. oxyCODONE IR (ROXICODONE) 10 mg tab Take 1 tablet by mouth twice daily for 30 days. May take one pill extra per day as needed for exacerbation of pain (not daily). Do not start before July 02, 2021. omeprazole (PRILOSEC) 20 mg capsule Take 1 capsule by mouth daily before breakfast. 1/2 hr before meal. As directed. flash glucose sensor (FREESTYLE DUSTY 2 SENSOR) kit Check glucose 4 times a day or more as directed. Dx: ICD10: E11.40, Z79.4. Insulin: Yes. flash glucose scanning reader (FREESTYLE DUTSY 2 READER) Check glucose 4 times a day or more as directed. Dx: ICD10: E11.40, Z79.4. Insulin: Yes. insulin glargine (LANTUS SOLOSTAR U-100 INSULIN) 100 unit/mL (3 mL) Inject 120 Units subcutaneously daily at bedtime. Please dispense 15 pens (3 boxes at a time). budesonide-formoterol (SYMBICORT) 160-4.5 mcg/actuation inhaler Inhale 2 Puffs as instructed twice daily. (Patient not taking: Reported on 07/29/2021 ) oxyCODONE IR (ROXICODONE) 10 mg tab Take 1 tablet by mouth twice daily for 30 days. May take one pill extra per day as needed for exacerbation of pain (not daily). Do not start before April 05, 2021. FEROSUL 325 mg (65 mg iron) tablet take 1 tablet by mouth once daily WITH BREAKFAST (Patient not taking: Reported on 03/30/2021) ibuprofen (MOTRIN) 800 mg tablet Take 1 tablet by mouth every 8 hours as needed for pain. atenolol (TENORMIN) 25 mg tablet Take 1 tablet by mouth once daily. As directed insulin aspart U-100 (NOVOLOG FLEXPEN U-100 INSULIN) 100 unit/mL (3 mL) WITH FIRST BITE OF FOOD, 30 UNITS W/BREAKFAST, 30 UNITS W/LUNCH, 30 UNITS W/DINNER; MAY ADJUST WITH SLIDING SCALE GIVEN HIGH BLOOD SUGAR norethindrone (AYGESTIN) 5 mg tablet Take 1 tablet by mouth as directed. 1 tablet 3 times daily until bleeding stops then twice daily for 2 days then 1 tablet daily for 2 days. (Patient not taking: Reported on 03/30/2021 ) Cholecalciferol, Vitamin D3, 25 mcg (1,000 unit) cap Takes 1600 to 2000 units daily with supplement OTC DULoxetine (CYMBALTA) 30 mg capsule Take 1 capsule by mouth once daily. oxyCODONE IR (ROXICODONE) 10 mg tab Take 1 tablet by mouth twice daily for 30 days. May take one pill extra per day as needed for exacerbation of pain (not daily). Do not start before January 03, 2021. valsartan (DIOVAN) 40 mg tablet Take 1 tablet by mouth once daily. (Patient not taking: Reported on 06/20/2021 ) diclofenac (VOLTAREN) 1 % topical gel Apply 2 g to affected area four times daily. nystatin (MYCOSTATIN) cream Apply 1 application to affected area twice daily as needed. omega-3/dha/epa/dpa/fish oil (OMEGA-3 2100 ORAL) Take 1 tablet by mouth twice daily. ascorbic acid (VITAMIN C ORAL) Take 3,000 Units by mouth once daily. fluticasone (FLOVENT HFA) 220 mcg/actuation inhaler Inhale 2 Puffs as instructed twice daily. albuterol HFA (VENTOLIN HFA) 90 mcg/actuation inhaler Inhale 2 Puffs as instructed every 4 hours as needed for Wheezing/Shortness of Breath. (Patient not taking: Reported on 06/20/2021 ) Insulin [place], Disposable, (BD INSULIN PEN NEEDLE UF) 29 gauge x 1/2 Use 1 Needle For Each Dose 3-4 Times Daily With Novolog Pen For Meals and At Bedtime if Needed ergocalciferol 50,000 unit capsule (VITAMIN D2, DRISDOL) Take 1 capsule by mouth one time a week. Blood-Glucose Meter (FREESTYLE LITE METER) monitoring kit Check blood sugars as directed for controlled Type 2 DM without complication montelukast (SINGULAIR) 10 mg tablet Take 1 tablet by mouth daily at bedtime. hydroCHLOROthiazide (HYDRODIURIL, ESIDRIX) 25 mg tablet Take 1 tablet by mouth once daily. As needed for swelling from fluid retention (Patient not taking: Reported on 07/29/2021 ) cyclobenzaprine (FLEXERIL) 10 mg tablet Take 0.5-1 tablets by mouth twice daily as needed. mupirocin (BACTROBAN) 2 % ointment Apply 1 application to affected area three times daily. Location: torso wounds as directed till healed blood sugar diagnostic (BLOOD GLUCOSE TEST) test strip Test blood sugar(s) 5 times daily. (Test strips brand covered by [employer]) Dx: Type 2 DM - Uncontrolled E11.65 Insulin: Yes CPAP CPAP @ 13 cm of water with humidification. Mask (per patient preference) optional chin strap (if indicated) , filters, tubing, humidifier and lifetime supplies. EPR set at 3. (G47.33) ZHAO (obstructive sleep apnea) COMPOUNDED PRESCRIPTION CPAP supplies--mask per patient preference, tubing, humidifier as needed. G47.33, Z99.89 ZHAO on CPAP Blood-Glucose Meter monitoring kit Glucose Meter of Choice (covered by [employer]) - Kit - Dx: Type 2 DM - Uncontrolled E11.65, Insulin Yes blood sugar diagnostic (FREESTYLE LITE STRIPS) test strip Test blood sugars 5 times per day and as needed. Dx: E11.65; Insulin: yes Incontinence Pad, Liner, Disp pads Change pad 3 to 5 times daily. N39.46 COMPOUNDED PRESCRIPTION Bilateral compression Knee Hi 20-30 mm. ICD 10; 459.81; 782.3 Compression Knee Highs KNEE HIGH COMPRESSION STOCKINGS 30-40 MM. DX: (I87.8/459.81) Venous stasis (R60.0782.3) Bilateral edema of lower extremity Lancets (FREESTYLE LANCETS) lancets tests sugar 4 to 6 times daily DX:250.02 Insulin dependent (this is corrected RX) Cane Misc [place] 1 Each. Diagnosis: 724.2 Back pain Current Facility-Administered Medications Medication Dose Route Frequency perflutren lipid microspheres 1.3 mL in NaCl (PF) 0.9% 10 mL injection (DEFINITY) INTRAVENOUS DIRECTED PRN sodium chloride 0.9 % (flush) 10 mL (BD POSIFLUSH) 10 mL INTRAVENOUS DIRECTED PRN Allergies: Losartan, Vicodin [Hydrocodone-Acetaminophen], Amlodipine, Codeine Antitussive Cough, Latex, Lisinopril, Metformin, and Relafen [Nabumetone] Vincenzo Fonseca MD documented in this encounter [facility] 06-28-2021 History of Present illness Narrative This note was created using [email or web address]. Subjective Malathi Zambrano is a 51 year old female. Patient presents with: Established Patient: follow up SUBJECTIVE: Malathi Zambrano is a 51 year old year old lady here today for follow up appointment for review of medical conditions. Still in a lot of pain Surgery in August for left trigger thumb. Cannot bend down or blanket washer. Right is doing well since surgery last year. Back is killing me Tailbone is getting worse Bad when needed D&C. Also constant muscle pain. Shoulder pain. Bariatric surgeon offering an additional procedure. Also would like to do their weight loss program. PAST MEDICAL HISTORY Diagnosis Date Abdominal pain, left upper quadrant Abdominal pain, unspecified site Acquired spondylolisthesis 07/25/2010 Acute gastritis without mention of hemorrhage Calcaneal spur 10/15/2009 Cough DEPRESSIVE DISORDER NEC 06/15/2007 Depressive disorder, not elsewhere classified Diabetes mellitus without mention of complication Diabetes mellitus Diabetes mellitus without mention of complication Diabetes mellitus type 2 Displacement of lumbar intervertebral disc without myelopathy 12/30/2009 Esophageal reflux 10/01/2006 Esophagitis, unspecified Fibromyalgia 07/25/2010 Generalized anxiety disorder Anxiety, Generalized Hemorrhage of gastrointestinal tract, unspecified Hypertension Internal hemorrhoids without mention of complication Left carpal tunnel syndrome 09/11/2013 Lumbago 08/05/2008 Migraine 03/02/2009 Mixed stress and urge urinary incontinence Myalgia and myositis, unspecified Obesity, unspecified Obesity ZHAO (obstructive sleep apnea) 05/01/2011 uses C-PAP PMH - PAST MEDICAL HISTORY OF allergic syndrome; gets allergy shots PMH - PAST MEDICAL HISTORY OF bipolar Psoriasis and similar disorders Sleep apnea Spondylolysis, 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 Grisosm saw in the past Vitamin D deficiency 11/29/2010 on calcitriol Current Outpatient Medications Medication Sig oxyCODONE IR (ROXICODONE) 10 mg tab Take 1 tablet by mouth twice daily for 30 days. May take one pill extra per day as needed for exacerbation of pain (not daily). Do not start before June 02, 2021. flash glucose sensor (FREESTYLE DUSTY 2 SENSOR) kit Check glucose 4 times a day or more as directed. Dx: ICD10: E11.40, Z79.4. Insulin: Yes. flash glucose scanning reader (FREESTYLE DUSTY 2 READER) Check glucose 4 times a day or more as directed. Dx: ICD10: E11.40, Z79.4. Insulin: Yes. insulin glargine (LANTUS SOLOSTAR U-100 INSULIN) 100 unit/mL (3 mL) Inject 120 Units subcutaneously daily at bedtime. Please dispense 15 pens (3 boxes at a time). budesonide-formoterol (SYMBICORT) 160-4.5 mcg/actuation inhaler Inhale 2 Puffs as instructed twice daily. oxyCODONE IR (ROXICODONE) 10 mg tab Take 1 tablet by mouth twice daily for 30 days. May take one pill extra per day as needed for exacerbation of pain (not daily). Do not start before April 05, 2021. FEROSUL 325 mg (65 mg iron) tablet take 1 tablet by mouth once daily WITH BREAKFAST (Patient not taking: Reported on 03/30/2021) ibuprofen (MOTRIN) 800 mg tablet Take 1 tablet by mouth every 8 hours as needed for pain. atenolol (TENORMIN) 25 mg tablet Take 1 tablet by mouth once daily. As directed insulin aspart U-100 (NOVOLOG FLEXPEN U-100 INSULIN) 100 unit/mL (3 mL) WITH FIRST BITE OF FOOD, 30 UNITS W/BREAKFAST, 30 UNITS W/LUNCH, 30 UNITS W/DINNER; MAY ADJUST WITH SLIDING SCALE GIVEN HIGH BLOOD SUGAR norethindrone (AYGESTIN) 5 mg tablet Take 1 tablet by mouth as directed. 1 tablet 3 times daily until bleeding stops then twice daily for 2 days then 1 tablet daily for 2 days. (Patient not taking: Reported on 03/30/2021 ) Cholecalciferol, Vitamin D3, 25 mcg (1,000 unit) cap Takes 1600 to 2000 units daily with supplement OTC DULoxetine (CYMBALTA) 30 mg capsule Take 1 capsule by mouth once daily. oxyCODONE IR (ROXICODONE) 10 mg tab Take 1 tablet by mouth twice daily for 30 days. May take one pill extra per day as needed for exacerbation of pain (not daily). Do not start before January 03, 2021. valsartan (DIOVAN) 40 mg tablet Take 1 tablet by mouth once daily. (Patient not taking: Reported on 06/20/2021 ) diclofenac (VOLTAREN) 1 % topical gel Apply 2 g to affected area four times daily. nystatin (MYCOSTATIN) cream Apply 1 application to affected area twice daily as needed. omega-3/dha/epa/dpa/fish oil (OMEGA-3 2100 ORAL) Take 1 tablet by mouth twice daily. ascorbic acid (VITAMIN C ORAL) Take 3,000 Units by mouth once daily. fluticasone (FLOVENT HFA) 220 mcg/actuation inhaler Inhale 2 Puffs as instructed twice daily. (Patient not taking: Reported on 06/20/2021 ) albuterol HFA (VENTOLIN HFA) 90 mcg/actuation inhaler Inhale 2 Puffs as instructed every 4 hours as needed for Wheezing/Shortness of Breath. (Patient not taking: Reported on 06/20/2021 ) Insulin [place], Disposable, (BD INSULIN PEN NEEDLE UF) 29 gauge x 1/2 Use 1 Needle For Each Dose 3-4 Times Daily With Novolog Pen For Meals and At Bedtime if Needed fluconazole (DIFLUCAN) 150 mg tablet Take by mouth. Take at onset of yeast infection. Repeat after 5 to 7 days if ongoing symptoms. May treat recurrent episodes as needed. ergocalciferol 50,000 unit capsule (VITAMIN D2, DRISDOL) Take 1 capsule by mouth one time a week. Blood-Glucose Meter (FREESTYLE LITE METER) monitoring kit Check blood sugars as directed for controlled Type 2 DM without complication montelukast (SINGULAIR) 10 mg tablet Take 1 tablet by mouth daily at bedtime. hydroCHLOROthiazide (HYDRODIURIL, ESIDRIX) 25 mg tablet Take 1 tablet by mouth once daily. As needed for swelling from fluid retention omeprazole (PRILOSEC) 20 mg capsule Take 1 capsule by mouth daily before breakfast. 1/2 hr before meal. As directed. cyclobenzaprine (FLEXERIL) 10 mg tablet Take 0.5-1 tablets by mouth twice daily as needed. mupirocin (BACTROBAN) 2 % ointment Apply 1 application to affected area three times daily. Location: torso wounds as directed till healed blood sugar diagnostic (BLOOD GLUCOSE TEST) test strip Test blood sugar(s) 5 times daily. (Test strips brand covered by [employer]) Dx: Type 2 DM - Uncontrolled E11.65 Insulin: Yes CPAP CPAP @ 13 cm of water with humidification. Mask (per patient preference) optional chin strap (if indicated) , filters, tubing, humidifier and lifetime supplies. EPR set at 3. (G47.33) ZHAO (obstructive sleep apnea) COMPOUNDED PRESCRIPTION CPAP supplies--mask per patient preference, tubing, humidifier as needed. G47.33, Z99.89 ZHAO on CPAP Blood-Glucose Meter monitoring kit Glucose Meter of Choice (covered by [employer]) - Kit - Dx: Type 2 DM - Uncontrolled E11.65, Insulin Yes blood sugar diagnostic (FREESTYLE LITE STRIPS) test strip Test blood sugars 5 times per day and as needed. Dx: E11.65; Insulin: yes Incontinence Pad, Liner, Disp pads Change pad 3 to 5 times daily. N39.46 COMPOUNDED PRESCRIPTION Bilateral compression Knee Hi 20-30 mm. ICD 10; 459.81; 782.3 Compression Knee Highs KNEE HIGH COMPRESSION STOCKINGS 30-40 MM. DX: (I87.8/459.81) Venous stasis (R60.0782.3) Bilateral edema of lower extremity Lancets (FREESTYLE LANCETS) lancets tests sugar 4 to 6 times daily DX:250.02 Insulin dependent (this is corrected RX) Cane Misc [place] 1 Each. Diagnosis: 724.2 Back pain Current Facility-Administered Medications Medication Dose Route Frequency perflutren lipid microspheres 1.3 mL in NaCl (PF) 0.9% 10 mL injection (DEFINITY) INTRAVENOUS DIRECTED PRN sodium chloride 0.9 % (flush) 10 mL (BD POSIFLUSH) 10 mL INTRAVENOUS DIRECTED PRN Review of Systems Objective BP 130/64 (BP Site: Left Arm, BP Position: Sitting, BP Cuff Size: Large Adult) Pulse 94 Temp 37 C (98.6 F) Resp 16 Ht 154.9 cm (5' 1) Wt 131.5 kg (290 lb) LMP 11/28/2020 (LMP Unknown) SpO2 97% BMI 54.80 kg/m Physical Exam Constitutional: Appearance: Normal appearance. She is morbidly obese. HENT: Head: Normocephalic. Eyes: Conjunctiva/sclera: Conjunctivae normal. Cardiovascular: Rate and Rhythm: Normal rate and regular rhythm. Heart sounds: Normal heart sounds. Pulmonary: Effort: Pulmonary effort is normal. Breath sounds: Normal breath sounds. Musculoskeletal: Left hand: Decreased range of motion (left thumb). Lumbar back: Decreased range of motion (Pain with certain movements. Need to change position when back starts hurting ). Skin: General: Skin is warm and dry. Neurological: General: No focal deficit present. Mental Status: She is alert and oriented to person, place, and time. Psychiatric: Attention and Perception: Attention and perception normal. Mood and Affect: Affect normal. Mood is depressed. Speech: Speech normal. Behavior: Behavior normal. Thought Content: Thought content normal. Judgment: Judgment normal. Hemoglobin A1C (%) Date Value 06/20/2021 8.2 10/19/2020 7.0 07/23/2020 7.3 06/05/2019 7.9 06/18/2018 6.6 Assessment and Plan ASSESSMENT/PLAN: 1. Displacement of lumbar intervertebral disc without myelopathy - ICD9: 722.10, ICD10: M51.26 (primary diagnosis) Chronic low back pain - Patient given instructions use of medications as ordered, intermittent rest, weight loss and improved posture Stable with control of chronic pain but still in severe pain. Meds help so can take care of ADLs and take care of kids, but pain can get severe at tines Encouraged on efforts at weight loss. At this time benefits outweigh risks. Continue to monitor for adverse effects and indications for decreasing dose or tapering off. . No signs of diversion or abuse of medication(s); no adverse effects. Continue present management. - OXYCODONE 10 MG TABLET - OXYCODONE 10 MG TABLET 2. Coccygeal pain - ICD9: 724.79, ICD10: M53.3 Continue present meds. Pain management as indicated Further evaluation and treatment as indicated. - OXYCODONE 10 MG TABLET - OXYCODONE 10 MG TABLET 3. Type 2 diabetes mellitus with diabetic neuropathy, with long-term current use of insulin ([facility]) - ICD9: 250.60, 357.2, V58.67, ICD10: E11.40, Z79.4 poorly controlled - Continue current medications - Needs to keep working on diet and exercise with lifestyle changes for effective weight loss as well as control of DM, and control of BP and lipids. Limited exercise due to chronic pain and morbid obesity, but needs to keep as active as able - HGB A1C - COMP METABOLIC PANEL - LIPID PANEL BASIC 4. Type 2 diabetes mellitus with hyperglycemia, with long-term current use of insulin ([facility]) - ICD9: 250.00, 790.29, V58.67, ICD10: E11.65, Z79.4 poorly controlled - As noted above - HGB A1C - COMP METABOLIC PANEL - LIPID PANEL BASIC 5. Spondylolysis, lumbosacral - ICD9: 738.4, ICD10: M43.07 Continue present management. - OXYCODONE 10 MG TABLET - OXYCODONE 10 MG TABLET 6. Thumb pain, left - ICD9: 729.5, ICD10: M79.645 See if splint helps while waiting to purse surgery as needed - WRIST SPLINT - THUMB SPICA 7. Vitamin D deficiency - ICD9: 268.9, ICD10: E55.9 Adjust supplements as indicated - VITAMIN D 25 HYDROXY 8. Class 3 severe obesity due to excess calories with serious comorbidity and body mass index (BMI) of 50.0 to 59.9 in adult ([facility]) - ICD9: 278.01, V85.43, ICD10: E66.01, Z68.43 Stable - Behavioral intervention 9. Medication management - ICD9: V58.69, ICD10: Z79.899 - COMP METABOLIC PANEL - CBC Aurora Macdonald MD Medical Decision Making: Problems: Moderate: 2+ stable chronic illnesses Data: Unique test(s) ordered: 3+ Risk: Moderate: Drug management Medical Decision Making Level: 4 - Moderate documented in this encounter [facility] 07-30-2018 History of Past i llness Narrative Problem Noted Date Resolved Date Abdominal pain, left upper quadrant 07/30/2018 documented as of this encounter (statuses as of 09/09/2021) [address]2019 History of Past illness Narrative* Problem Noted Date Resolved Date Abdominal pain, left upper quadrant 07/30/2018 documented as of this encounter (statuses as of 09/12/2021) [address]2019 History of Past illness Narrative* Problem Noted Date Resolved Date Abdominal pain, left upper quadrant 07/30/2018 documented as of this encounter (statuses as of 09/20/2021) [address]2019 History of Past illness Narrative* Problem Noted Date Resolved Date Abdominal pain, left upper quadrant 07/30/2018 documented as of this encounter (statuses as of 09/29/2021) [address]2019 History of Past illness Narrative* Problem Noted Date Resolved Date Abdominal pain, left upper quadrant 07/30/2018 documented as of this encounter (statuses as of 10/05/2021) [address]2019 History of Past illness Narrative* Problem Noted Date Resolved Date Abdominal pain, left upper quadrant 07/30/2018 documented as of this encounter (statuses as of 11/16/2021) [address]2019 History of Past illness Narrative* Problem Noted Date Resolved Date Abdominal pain, left upper quadrant 07/30/2018 documented as of this encounter (statuses as of 12/05/2021) [address]2019 History of Past illness Narrative* Problem Noted Date Resolved Date Abdominal pain, left upper quadrant 07/30/2018 documented as of this encounter (statuses as of 12/23/2021) [address]2019 History of Past illness Narrative* Problem Noted Date Resolved Date Abdominal pain, left upper quadrant 07/30/2018 documented as of this encounter (statuses as of 01/08/2022) [address]2019 History of Past illness Narrative* Problem Noted Date Resolved Date Abdominal pain, left upper quadrant 07/30/2018 documented as of this encounter (statuses as of 01/24/2022) [address]2019 History of Past illness Narrative* Problem Noted Date Resolved Date Abdominal pain, left upper quadrant 07/30/2018 documented as of this encounter (statuses as of 01/24/2022) [address]2019 History of Past illness Narrative* Problem Noted Date Resolved Date Abdominal pain, left upper quadrant 07/30/2018 documented as of this encounter (statuses as of 01/24/2022) [address]2019 History of Past illness Narrative* Problem Noted Date Resolved Date Abdominal pain, left upper quadrant 07/30/2018 documented as of this encounter (statuses as of 01/26/2022) [address]2019 History of Past illness Narrative* Problem Noted Date Resolved Date Abdominal pain, left upper quadrant 07/30/2018 documented as of this encounter (statuses as of 01/29/2022) [address]2019 History of Past illness Narrative* Problem Noted Date Resolved Date Abdominal pain, left upper quadrant 07/30/2018 documented as of this encounter (statuses as of 01/30/2022) [address]2019 History of Past illness Narrative* Problem Noted Date Resolved Date Abdominal pain, left upper quadrant 07/30/2018 documented as of this encounter (statuses as of 02/07/2022) [address]2019 History of Past illness Narrative* Problem Noted Date Resolved Date Abdominal pain, left upper quadrant 07/30/2018 documented as of this encounter (statuses as of 03/19/2022) [address]2019 History of Past illness Narrative* Problem Noted Date Resolved Date Abdominal pain, left upper quadrant 07/30/2018 documented as of this encounter (statuses as of 05/11/2022) [address]2019 History of Past illness Narrative* Problem Noted Date Resolved Date Abdominal pain, left upper quadrant 07/30/2018 documented as of this encounter (statuses as of 06/07/2022) [address]2019 History of Past illness Narrative* Problem Noted Date Resolved Date Abdominal pain, left upper quadrant 07/30/2018 documented as of this encounter (statuses as of 06/08/2022) [address]2019 History of Past illness Narrative* Problem Noted Date Resolved Date Abdominal pain, left upper quadrant 07/30/2018 documented as of this encounter (statuses as of 06/08/2022) [address]2019 History of Past illness Narrative* Problem Noted Date Resolved Date Abdominal pain, left upper quadrant 07/30/2018 documented as of this encounter (statuses as of 07/03/2022) [address]2019 History of Past illness Narrative* Problem Noted Date Resolved Date Abdominal pain, left upper quadrant 07/30/2018 documented as of this encounter (statuses as of 07/19/2022) [address]2019 History of Past illness Narrative* Problem Noted Date Resolved Date Abdominal pain, left upper quadrant 07/30/2018 documented as of this encounter (statuses as of 07/25/2022) [address]2019 History of Past illness Narrative* Problem Noted Date Resolved Date Abdominal pain, left upper quadrant 07/30/2018 documented as of this encounter (statuses as of 08/04/2022) [address]2019 History of Past illness Narrative* Problem Noted Date Resolved Date Abdominal pain, left upper quadrant 07/30/2018 documented as of this encounter (statuses as of 08/04/2022) [address]2019 History of Past illness Narrative* Problem Noted Date Resolved Date Abdominal pain, left upper quadrant 07/30/2018 documented as of this encounter (statuses as of 08/12/2022) [address] History of Past illness Narrative* Problem Noted Date Resolved Date Abdominal pain, left upper quadrant 07/30/2018 documented as of this encounter (statuses as of 08/22/2022) [address]26[address]2019 History of Past illness Narrative* Problem Noted Date Resolved Date Abdominal pain, left upper quadrant 07/30/2018 documented as of this encounter (statuses as of 08/23/2022) [address]2019 History of Past illness Narrative* Problem Noted Date Resolved Date Abdominal pain, left upper quadrant 07/30/2018 documented as of this encounter (statuses as of 09/01/2022) [place] [address] History of Past illness Narrative* Problem Noted Date Resolved Date Abdominal pain, left upper quadrant 07/30/2018 documented as of this encounter (statuses as of 09/11/2022) [place] [address] History of Past illness Narrative* Problem Noted Date Resolved Date Abdominal pain, left upper quadrant 07/30/2018 documented as of this encounter (statuses as of 09/15/2022) [place] [address] History of Past illness Narrative* Problem Noted Date Resolved Date Abdominal pain, left upper quadrant 07/30/2018 documented as of this encounter (statuses as of 09/19/2022) [address]2019 History of Past illness Narrative* Problem Noted Date Resolved Date Abdominal pain, left upper quadrant 07/30/2018 documented as of this encounter (statuses as of 09/23/2022) [address]2019 History of Past illness Narrative* Problem Noted Date Resolved Date Abdominal pain, left upper quadrant 07/30/2018 documented as of this encounter (statuses as of 10/14/2022) [address]2019 History of Past illness Narrative* Problem Noted Date Resolved Date Abdominal pain, left upper quadrant 07/30/2018 documented as of this encounter (statuses as of 10/17/2022) [address]2019 History of Past illness Narrative* Problem Noted Date Resolved Date Abdominal pain, left upper quadrant 07/30/2018 documented as of this encounter (statuses as of 11/07/2022) [address]2019 History of Past illness Narrative* Problem Noted Date Resolved Date Abdominal pain, left upper quadrant 07/30/2018 documented as of this encounter (statuses as of 11/09/2022) [address]2019 History of Past illness Narrative* Problem Noted Date Resolved Date Abdominal pain, left upper quadrant 07/30/2018 documented as of this encounter (statuses as of 11/13/2022) [address]2019 History of Past illness Narrative* Problem Noted Date Resolved Date Abdominal pain, left upper quadrant 07/30/2018 documented as of this encounter (statuses as of 11/28/2022) [address]2019 History of Past illness Narrative* Problem Noted Date Resolved Date Abdominal pain, left upper quadrant 07/30/2018 documented as of this encounter (statuses as of 12/06/2022) [address]2019 History of Past illness Narrative* Problem Noted Date Diagnosed Date Resolved Date Abdominal pain, left upper quadrant 07/30/2018 documented as of this encounter (statuses as of 01/02/2023) [address]2019 History of Past illness Narrative* Problem Noted Date Diagnosed Date Resolved Date Abdominal pain, left upper quadrant 07/30/2018 documented as of this encounter (statuses as of 01/24/2023) [address]2019 History of Past illness Narrative* Problem Noted Date Diagnosed Date Resolved Date Abdominal pain, left upper quadrant 07/30/2018 documented as of this encounter (statuses as of 01/30/2023) [facility]02-26-2019 History of Past illness Narrative* Problem Noted Date Diagnosed Date Resolved Date Abdominal pain, left upper quadrant 07/30/2018 documented as of this encounter (statuses as of 02/09/2023) [facility]-2019 History of Past illness Narrative* Problem Noted Date Diagnosed Date Resolved Date Abdominal pain, left upper quadrant 07/30/2018 documented as of this encounter (statuses as of 03/21/2023) [facility]-2019 History of Past illness Narrative* Problem Noted Date Diagnosed Date Resolved Date Abdominal pain, left upper quadrant 07/30/2018 documented as of this encounter (statuses as of 03/29/2023) [facility]-2019 History of Past illness Narrative* Problem Noted Date Diagnosed Date Resolved Date Abdominal pain, left upper quadrant 07/30/2018 documented as of this encounter (statuses as of 04/08/2023) [facility]-2019 History of Past illness Narrative* Problem Noted Date Diagnosed Date Resolved Date Abdominal pain, left upper quadrant 07/30/2018 documented as of this encounter (statuses as of 04/17/2023) [facility]-2019 History of Past illness Narrative* Problem Noted Date Diagnosed Date Resolved Date Abdominal pain, left upper quadrant 07/30/2018 documented as of this encounter (statuses as of 04/20/2023) [facility] History of Past illness Narrative* Problem Noted Date Diagnosed Date Resolved Date Uncontrolled type 2 diabetes mellitus without complication, with long-term current use of insulin 08/11/2014 04/27/2023 Abdominal pain, left upper quadrant 07/30/2018 documented as of this encounter (statuses as of 05/08/2023) [facility] History of Past illness Narrative* Problem Noted Date Diagnosed Date Resolved Date Uncontrolled type 2 diabetes mellitus without complication, with long-term current use of insulin 08/11/2014 04/27/2023 Abdominal pain, left upper quadrant 07/30/2018 documented as of this encounter (statuses as of 05/09/2023) [facility] History of Past illness Narrative* Problem Noted Date Diagnosed Date Resolved Date Uncontrolled type 2 diabetes mellitus without complication, with long-term current use of insulin 08/11/2014 04/27/2023 Abdominal pain, left upper quadrant 07/30/2018 documented as of this encounter (statuses as of 07/13/2023) [place] [address]10-2015 History of Past illness Narrative* Problem Noted Date Diagnosed Date Resolved Date Uncontrolled type 2 diabetes mellitus without complication, with long-term current use of insulin 08/11/2014 04/27/2023 Abdominal pain, left upper quadrant 07/30/2018 documented as of this encounter (statuses as of 07/24/2023) [address]10-2015 History of Past illness Narrative* Problem Noted Date Diagnosed Date Resolved Date Uncontrolled type 2 diabetes mellitus without complication, with long-term current use of insulin 08/11/2014 04/27/2023 Abdominal pain, left upper quadrant 07/30/2018 documented as of this encounter (statuses as of 08/17/2023) [address]10-2015 History of Past illness Narrative* Problem Noted Date Diagnosed Date Resolved Date Uncontrolled type 2 diabetes mellitus without complication, with long-term current use of insulin 08/11/2014 04/27/2023 Abdominal pain, left upper quadrant 07/30/2018 documented as of this encounter (statuses as of 08/21/2023) [facility] Diagnosis Displacement of lumbar intervertebral disc without myelopathy- Primary Coccygeal pain Other disorder of coccyx Type 2 diabetes mellitus with diabetic neuropathy, with long-term current use of insulin ([facility]) Type 2 diabetes mellitus with hyperglycemia, with long-term current use of insulin ([facility]) Spondylolysis, lumbosacral Acquired spondylolisthesis Thumb pain, left Vitamin D deficiency Unspecified vitamin D deficiency Class 3 severe obesity due to excess calories with serious comorbidity and body mass index (BMI) of 50.0 to 59.9 in adult ([facility]) Medication management Encounter for long-term (current) use of other medications [facility] Trigger finger of left thumb- [facility] Diagnosis Mild persistent asthma without complication- Primary Unspecified asthma Morbid obesity ([facility]) Morbid obesity [facility] Diagnosis 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, lumbosacral Acquired spondylolisthesis Coccygeal pain Other disorder of coccyx [facility] Diagnosis LUQ pain- Primary Abdominal pain, left upper quadrant Gastroesophageal reflux disease without esophagitis Esophageal reflux Nausea Nausea alone Hiatal hernia Diaphragmatic hernia without mention of obstruction or gangrene Type 2 diabetes mellitus with diabetic neuropathy, with long-term current use of insulin ([facility]) 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, lumbosacral Acquired spondylolisthesis Coccygeal pain Other disorder of coccyx Class 3 severe obesity due to excess calories with serious comorbidity and body mass index (BMI) of 50.0 to 59.9 in adult ([facility]) [facility] Diagnosis Generalized abdominal pain Abdominal pain, generalized Hypertension, unspecified type Chronic obstructive pulmonary disease, unspecified COPD type ([facility]) ZHAO (obstructive sleep apnea) Obstructive sleep apnea (adult) (pediatric) Gastroesophageal reflux disease without esophagitis Esophageal reflux Back pain, unspecified back location, unspecified back pain laterality, unspecified chronicity Diabetes mellitus type 2 in obese ([facility]) Type II or unspecified type diabetes mellitus without mention of complication, not stated as uncontrolled Vitamin D deficiency Unspecified vitamin D deficiency Class 3 severe obesity due to excess calories with serious comorbidity and body mass index (BMI) of 50.0 to 59.9 in adult ([facility]) [facility] Work Phone: Evaluation note* Diagnosis Encounter for screening mammogram for breast cancer documented in this encounter [facility] note* Diagnosis 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, lumbosacral Acquired spondylolisthesis Coccygeal pain Other disorder of coccyx documented in this encounter [facility] note* Diagnosis Grief reaction- Primary Adjustment disorder with depressed mood documented in this encounter [facility] note* Diagnosis Encounter for long-term current use of medication- Primary 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, lumbosacral Acquired spondylolisthesis Coccygeal pain Other disorder of coccyx [facility] Diagnosis Type 2 diabetes mellitus with diabetic neuropathy, with long-term current use of insulin ([facility]) [facility] Diagnosis Elevated AST (SGOT)- Primary Nonspecific elevation of levels of transaminase or lactic acid dehydrogenase (LDH) Hepatosplenomegaly Other chronic nonalcoholic liver disease Hepatic steatosis Other chronic nonalcoholic liver disease Type 2 diabetes mellitus with diabetic neuropathy, with long-term current use of insulin ([facility]) Class 3 severe obesity due to excess calories with serious comorbidity and body mass index (BMI) of 50.0 to 59.9 in adult (HCC) [facility] Diagnosis Pre-operative exam Preoperative examination, unspecified Pre-operative laboratory examination Pre-procedural laboratory examination Gastroesophageal reflux disease without esophagitis Esophageal reflux Morbid obesity due to excess calories (HCC) ZHAO (obstructive sleep apnea) Obstructive sleep apnea (adult) (pediatric) documented in this encounter [facility] Work Phone: Evaluation note* Diagnosis Palpitations Essential hypertension Unspecified essential hypertension Tachycardia Tachycardia, unspecified [facility] Diagnosis Mild persistent asthma with acute exacerbation- Primary Unspecified asthma, with exacerbation Eosinophilic asthma Pulmonary eosinophilia Type 2 diabetes mellitus with diabetic neuropathy, with long-term current use of insulin (HCC) Essential hypertension Unspecified essential hypertension Vitamin D deficiency Unspecified vitamin D deficiency Chronic obstructive pulmonary disease, unspecified COPD type ([facility]) Medication management Encounter for long-term (current) use of other medications Grief reaction Adjustment disorder with depressed mood [facility] Diagnosis Type 2 diabetes mellitus with diabetic neuropathy, with long-term current use of insulin (HCC)- Primary Vitamin D deficiency Unspecified vitamin D deficiency Essential hypertension Unspecified essential hypertension Medication management Encounter for long-term (current) use of other medications Albuminuria Proteinuria [facility] Diagnosis Type 2 diabetes mellitus with diabetic neuropathy, with long-term current use of insulin (HCC)- Primary [facility] Diagnosis Wrist arthritis- Primary Unspecified arthropathy, forearm Pain of right thumb Pain in limb [facility] Diagnosis ZHAO (obstructive sleep apnea) Obstructive sleep apnea (adult) (pediatric) [facility] Diagnosis Type 2 diabetes mellitus with diabetic neuropathy, with long-term current use of insulin ([facility]) [facility] Diagnosis Type 2 diabetes mellitus with diabetic neuropathy, with long-term current use of insulin (HCC)- Primary [facility] Diagnosis Trigger finger of right thumb- Primary Trigger finger of right thumb [facility] [facility] Diagnosis Encounter for screening mammogram for breast cancer Trigger finger of right thumb [facility] Shoulder impingement- Primary Other affections of shoulder region, not elsewhere classified Calcific tendonitis of right shoulder Trigger finger of right thumb [facility] Diagnosis Type 2 diabetes mellitus with diabetic neuropathy, with long-term current use of insulin (HCC) Trigger finger of right thumb [facility] Diagnosis Trigger finger of right thumb- Primary [facility] Diagnosis SOB (shortness of breath)- Primary Shortness of breath Type 2 diabetes mellitus with diabetic neuropathy, with long-term current use of insulin ([facility]) [facility] Diagnosis Right shoulder pain, unspecified chronicity [facility] this [facility] Diagnosis Palpitations Essential hypertension Unspecified essential hypertension Tachycardia Tachycardia, unspecified [facility] this [facility] Diagnosis Type 2 diabetes mellitus with diabetic neuropathy, with long-term current use of insulin (HCC)- Primary ZHAO (obstructive sleep apnea) Obstructive sleep apnea (adult) (pediatric) Drug-induced constipation Other constipation Chronic cough Cough Class 3 severe obesity due to excess calories with serious comorbidity and body mass index (BMI) of 50.0 to 59.9 in adult (HCC) Shortness of breath Need for vaccination Need for prophylactic vaccination and inoculation against unspecified single disease [facility] this [facility] Diagnosis Dysuria- Primary Bladder spasms Other specified disorders of bladder Polyarthralgia Pain in joint, multiple sites Chronic pain of right knee Left hip pain Pain in joint, pelvic region and thigh [facility] Diagnosis Grief- Primary Adjustment disorder with depressed mood [facility] Diagnosis Encounter for screening mammogram for breast cancer [facility] Diagnosis Chronic pain of right knee- Primary Primary osteoarthritis of right knee Primary localized osteoarthrosis, lower leg Right foot pain Pain in limb Type 2 diabetes mellitus with diabetic neuropathy, with long-term current use of insulin (HCC) Essential hypertension Unspecified essential hypertension Vitamin D deficiency Unspecified vitamin D deficiency Medication management Encounter for long-term (current) use of other medications Controlled type 2 diabetes mellitus without complication, with long-term current use of insulin (HCC) Abnormal mammogram Abnormal mammogram, unspecified [facility] this [facility] Diagnosis Type 2 diabetes mellitus with diabetic neuropathy, with long-term current use of insulin (HCC)- Primary [facility] Diagnosis Chronic obstructive pulmonary disease, unspecified COPD type (HCC) documented in this encounter [facility]* Diagnosis Type 2 diabetes mellitus with diabetic neuropathy, with long-term current use of insulin (HCC) [facility] this [facility] Diagnosis Controlled type 2 diabetes mellitus without complication, with long-term current use of insulin (HCC)- Primary Class 3 severe obesity due to excess calories with body mass index (BMI) of 50.0 to 59.9 in adult, unspecified whether serious comorbidity present (HCC) Primary osteoarthritis of right knee Primary localized osteoarthrosis, lower leg Abnormal mammogram Abnormal mammogram, unspecified Palpitations Essential hypertension Unspecified essential hypertension Vitamin D deficiency Unspecified vitamin D deficiency Tachycardia Tachycardia, unspecified 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, lumbosacral Acquired spondylolisthesis Lumbago Left foot pain Pain in limb Encounter for long-term current use of medication ZHAO (obstructive sleep apnea) Obstructive sleep apnea (adult) (pediatric) [facility] Diagnosis Preop examination- Primary Preoperative examination, unspecified De Quervain's tenosynovitis, right Radial styloid tenosynovitis Essential hypertension Unspecified essential hypertension Gastroesophageal reflux disease, unspecified whether esophagitis present Chronic obstructive pulmonary disease, unspecified COPD type (HCC) ZHAO (obstructive sleep apnea) Obstructive sleep apnea (adult) (pediatric) Ventricular tachycardia, non-sustained (HCC) Paroxysmal ventricular tachycardia Intermittent palpitations Type 2 diabetes mellitus with diabetic neuropathy, with long-term current use of insulin (HCC) Right knee pain, unspecified chronicity Pain in right hip Pain in joint, pelvic region and thigh documented in this encounter [facility] note* Diagnosis Preop examination- Primary Preoperative examination, unspecified De Quervain's tenosynovitis, right Radial styloid tenosynovitis Essential hypertension Unspecified essential hypertension Gastroesophageal reflux disease, unspecified whether esophagitis present Chronic obstructive pulmonary disease, unspecified COPD type (HCC) ZHAO (obstructive sleep apnea) Obstructive sleep apnea (adult) (pediatric) Ventricular tachycardia, non-sustained (HCC) Paroxysmal ventricular tachycardia Intermittent palpitations Type 2 diabetes mellitus with diabetic neuropathy, with long-term current use of insulin (HCC) SOB (shortness of breath) Shortness of breath [facility] Diagnosis Preop examination- Primary Preoperative examination, unspecified De Quervain's tenosynovitis, right Radial styloid tenosynovitis Essential hypertension Unspecified essential hypertension Gastroesophageal reflux disease, unspecified whether esophagitis present Chronic obstructive pulmonary disease, unspecified COPD type (HCC) ZHAO (obstructive sleep apnea) Obstructive sleep apnea (adult) (pediatric) Ventricular tachycardia, non-sustained (HCC) Paroxysmal ventricular tachycardia Intermittent palpitations Type 2 diabetes mellitus with diabetic neuropathy, with long-term current use of insulin (HCC) ZHAO (obstructive sleep apnea)- Primary Obstructive sleep apnea (adult) (pediatric) Episodic tension-type headache, not intractable Episodic tension type headache Neck pain, musculoskeletal Cervicalgia Muscle spasm of back Other symptoms referable to back Type 2 diabetes mellitus with diabetic neuropathy, with long-term current use of insulin (HCC) Plantar fasciitis of left foot Plantar fascial fibromatosis Drug-induced constipation Other constipation Muscle spasm Spasm of muscle Essential (primary) hypertension Unspecified essential hypertension [facility] Diagnosis Preop examination- Primary Preoperative examination, unspecified De Quervain's tenosynovitis, right Radial styloid tenosynovitis Essential hypertension Unspecified essential hypertension Gastroesophageal reflux disease, unspecified whether esophagitis present Chronic obstructive pulmonary disease, unspecified COPD type (HCC) ZHAO (obstructive sleep apnea) Obstructive sleep apnea (adult) (pediatric) Ventricular tachycardia, non-sustained (HCC) Paroxysmal ventricular tachycardia Intermittent palpitations Type 2 diabetes mellitus with diabetic neuropathy, with long-term current use of insulin (HCC) Chronic pain of right knee- Primary Primary osteoarthritis of right knee Primary localized osteoarthrosis, lower leg Right foot pain Pain in limb Left foot pain Pain in limb [facility] Diagnosis Preop examination- Primary Preoperative examination, unspecified De Quervain's tenosynovitis, right Radial styloid tenosynovitis Essential hypertension Unspecified essential hypertension Gastroesophageal reflux disease, unspecified whether esophagitis present Chronic obstructive pulmonary disease, unspecified COPD type (HCC) ZHAO (obstructive sleep apnea) Obstructive sleep apnea (adult) (pediatric) Ventricular tachycardia, non-sustained (HCC) Paroxysmal ventricular tachycardia Intermittent palpitations Type 2 diabetes mellitus with diabetic neuropathy, with long-term current use of insulin (HCC) Type 2 diabetes mellitus with diabetic neuropathy, with long-term current use of insulin (HCC) [facility] this [facility] Diagnosis Preop examination- Primary Preoperative examination, unspecified De Quervain's tenosynovitis, right Radial styloid tenosynovitis Essential hypertension Unspecified essential hypertension Gastroesophageal reflux disease, unspecified whether esophagitis present Chronic obstructive pulmonary disease, unspecified COPD type (HCC) ZHAO (obstructive sleep apnea) Obstructive sleep apnea (adult) (pediatric) Ventricular tachycardia, non-sustained (HCC) Paroxysmal ventricular tachycardia Intermittent palpitations Type 2 diabetes mellitus with diabetic neuropathy, with long-term current use of insulin (HCC) ZHAO (obstructive sleep apnea)- Primary Obstructive sleep apnea (adult) (pediatric) Type 2 diabetes mellitus with diabetic neuropathy, with long-term current use of insulin (HCC) Right medial knee pain Pain in joint, lower leg Class 3 severe obesity due to excess calories with serious comorbidity and body mass index (BMI) of 50.0 to 59.9 in adult (HCC) Generalized anxiety disorder Other depression Vitamin D deficiency Unspecified vitamin D deficiency Plantar fasciitis Plantar fascial fibromatosis documented [facility] this [facility] Diagnosis Preop examination- Primary Preoperative examination, unspecified De Quervain's tenosynovitis, right Radial styloid tenosynovitis Essential hypertension Unspecified essential hypertension Gastroesophageal reflux disease, unspecified whether esophagitis present Chronic obstructive pulmonary disease, unspecified COPD type (HCC) ZHAO (obstructive sleep apnea) Obstructive sleep apnea (adult) (pediatric) Ventricular tachycardia, non-sustained (HCC) Paroxysmal ventricular tachycardia Intermittent palpitations Type 2 diabetes mellitus with diabetic neuropathy, with long-term current use of insulin (HCC) Abnormal uterine bleeding (AUB)- Primary Screening for cervical cancer Screening for malignant neoplasm of the cervix Screening for human papillomavirus (HPV) Special screening examination for human papillomavirus (HPV) documented [facility] this [facility]* Diagnosis Preop examination- Primary Preoperative examination, unspecified De Quervain's tenosynovitis, right Radial styloid tenosynovitis Essential hypertension Unspecified essential hypertension Gastroesophageal reflux disease, unspecified whether esophagitis present Chronic obstructive pulmonary disease, unspecified COPD type (HCC) ZHAO (obstructive sleep apnea) Obstructive sleep apnea (adult) (pediatric) Ventricular tachycardia, non-sustained (HCC) Paroxysmal ventricular tachycardia Intermittent palpitations Type 2 diabetes mellitus with diabetic neuropathy, with long-term current use of insulin (HCC) Controlled type 2 diabetes mellitus without complication, with long-term current use of insulin (HCC) documented [facility] this [facility]* Diagnosis Preop examination- Primary Preoperative examination, unspecified De Quervain's tenosynovitis, right Radial styloid tenosynovitis Essential hypertension Unspecified essential hypertension Gastroesophageal reflux disease, unspecified whether esophagitis present Chronic obstructive pulmonary disease, unspecified COPD type (HCC) ZHAO (obstructive sleep apnea) Obstructive sleep apnea (adult) (pediatric) Ventricular tachycardia, non-sustained (HCC) Paroxysmal ventricular tachycardia Intermittent palpitations Type 2 diabetes mellitus with diabetic neuropathy, with long-term current use of insulin (HCC) Controlled type 2 diabetes mellitus without complication, with long-term current use of insulin (HCC) documented [facility] this [facility]* Diagnosis Preop examination- Primary Preoperative examination, unspecified De Quervain's tenosynovitis, right Radial styloid tenosynovitis Essential hypertension Unspecified essential hypertension Gastroesophageal reflux disease, unspecified whether esophagitis present Chronic obstructive pulmonary disease, unspecified COPD type (HCC) ZHAO (obstructive sleep apnea) Obstructive sleep apnea (adult) (pediatric) Ventricular tachycardia, non-sustained (HCC) Paroxysmal ventricular tachycardia Intermittent palpitations Type 2 diabetes mellitus with diabetic neuropathy, with long-term current use of insulin (HCC) Dysuria- Primary Abnormal uterine bleeding due to endometrial polyp [facility] Diagnosis Preop examination- Primary Preoperative examination, unspecified De Quervain's tenosynovitis, right Radial styloid tenosynovitis Essential hypertension Unspecified essential hypertension Gastroesophageal reflux disease, unspecified whether esophagitis present Chronic obstructive pulmonary disease, unspecified COPD type (HCC) ZHAO (obstructive sleep apnea) Obstructive sleep apnea (adult) (pediatric) Ventricular tachycardia, non-sustained (HCC) Paroxysmal ventricular tachycardia Intermittent palpitations Type 2 diabetes mellitus with diabetic neuropathy, with long-term current use of insulin (HCC) Abnormal uterine bleeding due to endometrial polyp documented in this encounter [facility]* Diagnosis Preop examination- Primary Preoperative examination, unspecified De Quervain's tenosynovitis, right Radial styloid tenosynovitis Essential hypertension Unspecified essential hypertension Gastroesophageal reflux disease, unspecified whether esophagitis present Chronic obstructive pulmonary disease, unspecified COPD type (HCC) ZHAO (obstructive sleep apnea) Obstructive sleep apnea (adult) (pediatric) Ventricular tachycardia, non-sustained (HCC) Paroxysmal ventricular tachycardia Intermittent palpitations Type 2 diabetes mellitus with diabetic neuropathy, with long-term current use of insulin (HCC) Abnormal uterine bleeding due to endometrial polyp- Primary [facility] Diagnosis Preop examination- Primary Preoperative examination, unspecified De Quervain's tenosynovitis, right Radial styloid tenosynovitis Essential hypertension Unspecified essential hypertension Gastroesophageal reflux disease, unspecified whether esophagitis present Chronic obstructive pulmonary disease, unspecified COPD type (HCC) ZHAO (obstructive sleep apnea) Obstructive sleep apnea (adult) (pediatric) Ventricular tachycardia, non-sustained (HCC) Paroxysmal ventricular tachycardia Intermittent palpitations Type 2 diabetes mellitus with diabetic neuropathy, with long-term current use of insulin ([facility]) UTI symptoms- Primary Other symptoms involving urinary system Controlled type 2 diabetes mellitus without complication, with long-term current use of insulin ([facility]) Encounter for long-term current use of medication [facility] this [facility] Diagnosis Preop examination- Primary Preoperative examination, unspecified De Quervain's tenosynovitis, right Radial styloid tenosynovitis Essential hypertension Unspecified essential hypertension Gastroesophageal reflux disease, unspecified whether esophagitis present Chronic obstructive pulmonary disease, unspecified COPD type (HCC) ZHAO (obstructive sleep apnea) Obstructive sleep apnea (adult) (pediatric) Ventricular tachycardia, non-sustained (HCC) Paroxysmal ventricular tachycardia Intermittent palpitations Type 2 diabetes mellitus with diabetic neuropathy, with long-term current use of insulin ([facility]) Palpitations Essential hypertension Unspecified essential hypertension Tachycardia Tachycardia, unspecified documented in this encounter [facility]* Diagnosis Preop examination- Primary Preoperative examination, unspecified De Quervain's tenosynovitis, right Radial styloid tenosynovitis Essential hypertension Unspecified essential hypertension Gastroesophageal reflux disease, unspecified whether esophagitis present Chronic obstructive pulmonary disease, unspecified COPD type (HCC) ZHAO (obstructive sleep apnea) Obstructive sleep apnea (adult) (pediatric) Ventricular tachycardia, non-sustained (HCC) Paroxysmal ventricular tachycardia Intermittent palpitations Type 2 diabetes mellitus with diabetic neuropathy, with long-term current use of insulin ([facility]) Abnormal uterine bleeding (AUB)- Primary Endometrial polyp Polyp of corpus uteri Pre-op exam Preoperative examination, unspecified documented in this encounter [facility] for referral (narrative)* Diagnostic Procedure Only (Routine) - Pending Review Specialty Diagnoses / Procedures Referred By Emiliano reddy Referred To Contact [facility] Diagnoses Encounter for screening mammogram for breast cancer Procedures NOAH SCREENING SCREENING MAMMOGRAPHY BI 2-VIEW BREAST INC Aurora Neri MD [address] [place] [address] [facility] [address] [place] [address] Referral ID Status Reason Start Date Expiration Date Visits Requested Visits Authorized [id number] Pending Review Auto-Generat ed Referral 11/30/2021 12/30/2022 1 1 [facility] for referral (narrative)* Diagnostic Procedure Only (Routine) - Closed Specialty Diagnoses / Procedures Referred By Emiliano reddy Referred To Contact XR IMAGING Diagnoses Pain of right thumb Procedures XR HAND GENERAL 3V PA/LAT/OBL RIGHT RADEX HAND MINIMUM 3 VIEWS Roberta Holman PA-C [address] [place] [address] [facility] Referral ID Status Reason Start Date Expiration Date V isits Requested Visits Authorized [id number] Closed Auto-Generate d Referral 09/08/2022 10/08/2023 1 1 [facility] for referral (narrative)* Diagnostic Procedure Only (Routine) - Authorized Specialty Diagnoses / Procedures [facility] To Contact [facility] Diagnoses Encounter for screening mammogram for breast cancer Procedures NOAH SCREENING SCREENING MAMMOGRAPHY BI 2-VIEW BREAST INC Aurora Neri MD [address] [place] [address] [facility] [address] [place] [address] Referral ID Status Reason Start Date Expiration Date Visits Requested Visits Authorized [id number] Authorized Auto-Generat ed Referral 11/08/2022 12/08/2023 1 1 [facility] for referral (narrative)* Outpatient Procedure (Routine) - Waiting for Online Response Specialty Diagnoses / Procedures Referred By Contac t Referred To Contact [facility] [place] Diagnoses SOB (shortness of breath) Procedures ECHO ECHO TTHRC R-T 2D W/WOM-MODE COMPL SPEC&COLR D Carmela Nathan APRN.TOOL ROOM MACHINIST [address] [place] [address] [facility] [address] [address] Referral ID Status Reason Start Date Expiration Date Visits Requested Visits Authorized [id number] Waiting for Online Response Auto-Generat ed Referral 02/09/2023 02/09/2024 1 1 * Outpatient Procedure (Routine) - Pending Review Specialty Diagnoses / Procedures Referred By Contac t Referred To Contact [facility] [place] Diagnoses SOB (shortness of breath) Procedures ECG COMPLETE ECG ROUTINE ECG W/LEAST 12 LDS W/I&R Carmela Nathan APRN.TOOL ROOM MACHINIST [address] [place] [address] [address] [id number] [place] [address] Referral ID Status Reason Start Date Expiration Date Visits Requested Visits Authorized [id number] Pending Review Auto-Generat ed Referral 02/09/2023 02/09/2024 1 1 * Consult, Test, Treat (Routine) - Authorized Specialty Diagnoses / Procedures Referred By Contac t Referred To Contact Cardiology Diagnoses SOB (shortness of breath) Procedures CONSULT TO CARDIOLOGY OFFICE/OUTPATIENT NEW HIGH MDM 60-74 MINUTES Carmela Nathan APRN.TOOL ROOM MACHINIST [address] [place] [address] Referral ID Status Reason Start Date Expiration Date Visits Requested Visits Authorized [id number] Authorized PCP Requested Referral 02/09/2023 02/09/2024 1 1 [facility] for referral (narrative)* Diagnostic Procedure Only (Routine) - Closed Specialty Diagnoses / Procedures Referred By Contac t Referred To Contact XR IMAGING Diagnoses Right shoulder pain, unspecified chronicity Procedures XR SHOULDER GENERAL 3V OR MORE AP/TRUE AP/OTHER RIGHT RADEX SHOULDER COMPLETE MINIMUM 2 VIEWS Vincenzo Fonseca MD [address] [place] [address] [place] [address] Referral ID Status Reason Start Date Expiration Date V isits Requested Visits Authorized [id number] Closed Auto-Generate d Referral 10/23/2022 11/22/2023 1 1 [facility] for referral (narrative)* Diagnostic Procedure Only (Routine) - Pending Review Specialty Diagnoses / Procedures Referred By Contac t Referred To Contact [facility] Diagnoses Abnormal mammogram Procedures NOAH DIAGNOSTIC LEFT DIAGNOSTIC MAMMOGRAPHY COMPUTER-AIDED DETCJ UNI Aurora Macdonald MD [address] [place] [address] [facility] [address] [place] [address] Referral ID Status Reason Start Date Expiration Date Visits Requested Visits Authorized [id number] Pending Review Auto-Generat ed Referral 08/28/2023 09/26/2024 1 1 * Medication Prior Authorization - Closed Specialty Diagnoses / Procedures Referred By Contac t Referred To Contact Diagnoses Controlled type 2 diabetes mellitus without complication, with long-term current use of insulin ([facility]) Aurora Macdonald MD [address] [place] [address] Referral ID Status Reason Start Date Expiration Date Visits Re quested Visits Authorized [id number] Closed 1 1 * Transition of Care (Routine) - Ref Not Required Specialty Diagnoses / Procedures Referred By Emiliano reddy Referred To Contact Diagnoses Chronic pain of right knee Primary osteoarthritis of right knee Right foot pain Procedures CONSULT TO PHYSICAL THERAPY Aurora Macdonald MD [address] [place] [address] [employer] [address] [place] [address] Referral ID Status Reason Start Date Expiration Date Visits Requested Visits Authorized [id number] Ref Not Required PCP Requested Referral 08/28/2023 08/27/2024 1 1 [facility] for referral (narrative)* Diagnostic Procedure Only (Routine) - New Request Specialty Diagnoses / Procedures Referred By Emiliano reddy Referred To Contact [facility] Diagnoses Abnormal mammogram Procedures US BREAST LTD LEFT US BREAST UNI REAL TIME WITH IMAGE LIMITED Aurora Macdonald MD [address] [place] [address] [facility] [address] [place] [address] Referral ID Status Reason Start Date Expiration Date Visits Requested Visits Authorized [id number] New Request Auto-Generat ed Referral 01/11/2024 02/09/2025 1 1 [facility] for referral (narrative)* Diagnostic Procedure Only (Routine) - Closed Specialty Diagnoses / Procedures Referred By Emiliano reddy Referred To Contact XR IMAGING Diagnoses Pain in right hip Procedures XR HIP GENERAL 3V PELV/AP/LAT RIGHT RADEX HIP UNILATERAL WITH PELVIS 2-3 VIEWS Vincenzo Fonseca MD [address] [place] [address] [place] [id number] Referral ID Status Reason Start Date Expiration Date V isits Requested Visits Authorized [id number] Closed Auto-Generate d Referral 06/05/2023 07/04/2024 1 1 * Diagnostic Procedure Only (Routine) - Closed Specialty Diagnoses / Procedures Referred By Contac t Referred To Contact XR IMAGING Diagnoses Right knee pain, unspecified chronicity Procedures XR KNEE GENERAL 4V AP BOTH/PA BOTH/LAT/MERC RIGHT RADIOLOGIC EXAM KNEE COMPLETE 4/MORE VIEWS Vincenzo Fonseca MD [address] [place] [address] [place] [address] Referral ID Status Reason Start Date Expiration Date V isits Requested Visits Authorized [id number] Closed Auto-Generate d Referral 06/05/2023 07/04/2024 1 1 [facility] for visit Narrative* Diagnostic Procedure Only (Routine) - Closed Specialty Diagnoses / Procedures Referred By Contac t Referred To Contact XR IMAGING Diagnoses Right shoulder pain, unspecified chronicity Procedures XR SHOULDER GENERAL 3V OR MORE AP/TRUE AP/OTHER RIGHT RADEX SHOULDER COMPLETE MINIMUM 2 VIEWS Vincenzo Fonseca MD [address] [place] [address] [place] [address] Referral ID Status Reason Start Date Expiration Date V isits Requested Visits Authorized [id number] Closed Auto-Generate d Referral 10/23/2022 11/22/2023 1 1 [facility] for visit Narrative* Diagnostic Procedure Only (Routine) - Closed Specialty Diagnoses / Procedures Referred By Contac t Referred To Contact BR IMAGING Diagnoses Encounter for screening mammogram for breast cancer Procedures NOAH SCREENING SCREENING MAMMOGRAPHY BI 2-VIEW BREAST INC Aurora Neri MD [address] [place] [address] Br Imaging [address] [place] [address] Referral ID Status Reason Start Date Expiration Date V isits Requested Visits Authorized [id number] Closed Auto-Generate d Referral 11/08/2022 12/08/2023 1 1 [facility] for visit Narrative* Diagnostic Procedure Only (Routine) - Closed Specialty Diagnoses / Procedures Referred By Contac t Referred To Contact XR IMAGING Diagnoses Pain in right hip Procedures XR HIP GENERAL 3V PELV/AP/LAT RIGHT RADEX HIP UNILATERAL WITH PELVIS 2-3 VIEWS Vincenzo Fonseca MD [address] [place] [address] [place] [address] Referral ID Status Reason Start Date Expiration Date V isits Requested Visits Authorized [id number] Closed Auto-Generate d Referral 06/05/2023 07/04/[address] [facility] Procedure Only (Routine) - Closed Specialty Diagnoses / Procedures Referred By Emiliano reddy Referred To Contact [facility] [place] 2] Diagnoses Abnormal uterine bleeding due to endometrial polyp Procedures PELVIC US WHI US PELVIC NONOBSTETRIC REAL-TIME IMAGE COMPLETE Malathi Cardoso MD [address] [place] [address] Phone: tel: fax: [facility] [address] [place] [address] Referral ID Status Reason Start Date Expiration Date V isits Requested Visits Authorized [id number] Closed Auto-Generate d Referral 11/18/2024 11/18/[address] [facility] Summary Purpose Family History No Family History Records FoundNo Family History Records FoundNo Family History Records FoundNo Family History Records FoundNo Family History Records FoundNo Family History Records FoundNo Family History Records Found Advance Directives No Advanced Directives Records FoundDocuments on File Type Date Recorded Patient Team Supervisor Expl anation Advance Directive(s) Advance Directive(s) 08/18/2021 2:36 PM Advance Directive(s) 08/08/2021 8:03 AM Advance Directive(s) 11/17/2020 1:18 PM Advance Directive(s) 11/17/2020 1:33 PM Advance Directive(s) 11/03/2020 11:29 AM Documents on File Type Date Recorded Patient Team Supervisor Expl anation Advance Directive(s) Advance Directive(s) 08/18/2021 2:36 PM Advance Directive(s) 08/08/2021 8:03 AM Advance Directive(s) 11/17/2020 1:18 PM Advance Directive(s) 11/17/2020 1:33 PM Advance Directive(s) 11/03/2020 11:29 AM Latest Code Status on File Code Status Date Activated Date Inactivated Comments Full Code 09/19/2021 8:49 AM 09/19/2021 1:01 PM Latest Code Status on File Code Status Date Activated Date Inactivated Comments Full Code 09/19/2021 8:49 AM 09/19/2021 1:01 PM Reason for Referral Specialty Diagnoses / Procedures Referred By Contac t Referred To Contact Diagnoses Mild persistent asthma without complication Katie Wilde MD [address] [place] [address] Referral ID Status Reason Start Date Expiration Date Visits Re quested Visits Authorized [id number] Closed 1 1 Specialty Diagnoses / Procedures Referred By Contac t Referred To Contact Diagnoses 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, lumbosacral Coccygeal pain Aurora Macdonald MD [address] [place] [address] Referral ID Status Reason Start Date Expiration Date Visits Re quested Visits Authorized [id number] Closed 1 1 Referral ID Status Reason Start Date Expiration Date Visits Re quested Visits Authorized [id number] Closed 1 1 Specialty Diagnoses / Procedures Referred By Contac t Referred To Contact Gastroenterology Diagnoses LUQ pain Gastroesophageal reflux disease without esophagitis Nausea Hiatal hernia Type 2 diabetes mellitus with diabetic neuropathy, with long-term current use of insulin (HCC) Procedures CONSULT TO GASTROENTEROLOGY Aurora Macdonald MD [address] [place] [address] Friend, David Potter, DO [address] [address] Referral ID Status Reason Start Date Expiration Date Visits Requested Visits Authorized [id number] Ref Not Required PCP Requested Referral 10/04/2021 10/04/2022 1 1 Specialty Diagnoses / Procedures Referred By Contac t Referred To Contact Radiology Diagnoses Generalized abdominal pain Procedures US ABDOMEN COMPLETE Jose Mohan, CLINICAL SYSTEMS EDUCATOR - TOOL ROOM MACHINIST [address] [facility] [address] [place] [address] Referral ID Status Reason Start Date Expiration Date Visits Re quested Visits Authorized [id number] Open 06/01/2021 06/01/2022 1 1 Referral ID Status Reason Start Date Expiration Date Visits Re quested Visits Authorized [id number] Closed 1 1 Specialty Diagnoses / Procedures Referred By Contac t Referred To Contact Aurora Macdonald MD [address] [place] [address] Referral ID Status Reason Start Date Expiration Date Visits Re quested Visits Authorized [id number] Closed 1 1 Specialty Diagnoses / Procedures Referred By Contac t Referred To Contact Diagnoses Chronic obstructive pulmonary disease, unspecified COPD type (HCC) Aurora Macdonald MD [address] [place] [address] Referral ID Status Reason Start Date Expiration Date Visits Re quested Visits Authorized [id number] Closed 1 1 Specialty Diagnoses / Procedures Referred By Contac t Referred To Contact Diagnoses Type 2 diabetes mellitus with diabetic neuropathy, with long-term current use of insulin (HCC) Darlene Davies APRN.TOOL ROOM MACHINIST [address] [place], [place] [id number] Referral ID Status Reason Start Date Expiration Date Visits Re quested Visits Authorized [id number] Closed 1 1 Referral ID Status Reason Start Date Expiration Date Visits Re quested Visits Authorized [id number] Closed 1 1 Specialty Diagnoses / Procedures Referred By Contac t Referred To Contact [facility] Diagnoses Shoulder impingement Calcific tendonitis of right shoulder Procedures CONSULT TO PHYSICAL THERAPY PHYSICAL THERAPY EVALUATION HIGH COMPLEX 45 MINS Vincenzo Fonseca MD [address] [place] [id number] [facility] [address] [place] [address] Referral ID Status Reason Start Date Expiration Date Visits Requested Visits Authorized [id number] Pending Review Auto-Generat ed Referral 11/06/2022 11/06/2023 1 1 Specialty Diagnoses / Procedures Referred By Contac t Referred To Contact Darlene Davies APRN.[address] [address] Referral ID Status Reason Start Date Expiration Date Visits Re quested Visits Authorized [id number] Closed 1 1 Specialty Diagnoses / Procedures Referred By Contac t Referred To Contact Endocrinology Diagnoses Class 3 severe obesity due to excess calories with serious comorbidity and body mass index (BMI) of 50.0 to 59.9 in adult ([facility]) Type 2 diabetes mellitus with diabetic neuropathy, with long-term current use of insulin ([facility]) Procedures CONSULT TO ENDOCRINOLOGY OFFICE/OUTPATIENT [facility] 60-74 MINUTES Aurora Macdonald MD [address] [place] [address] [facility] [address] [place] [address] Phone: [phone] Referral ID Status Reason Start Date Expiration Date Visits Requested Visits Authorized [id number] Authorized PCP Requested Referral 3 04/26/2024 1 1 Specialty Diagnoses / Procedures Referred By Contac t Referred To Contact Psychology Diagnoses Grief Procedures CONSULT TO PSYCHOLOGY OFFICE/OUTPATIENT [facility] 60 MINUTES Chris Brush APRN.SUBSTITUTE NURSE [address] [place] [phone] Referral ID Status Reason Start Date Expiration Date Visits Requested Visits Authorized [id number] Pending Review PCP Requested Referral 07/13/2023 07/12/2024 1 1 Specialty Diagnoses / Procedures Referred By Contac t Referred To Contact Endocrinology Diagnoses Type 2 diabetes mellitus with diabetic neuropathy, with long-term current use of insulin ([facility]) Procedures CONSULT TO ENDOCRINOLOGY OFFICE/OUTPATIENT [facility] 60 MINUTES Aurora Macdonald MD [address] [place] [address] Luz Elena Nelson MD [address] [place] [address] Referral ID Status Reason Start Date Expiration Date Visits Requested Visits Authorized [id number] Authorized PCP Requested Referral 05/07/2024 05/07/2025 1 1 Specialty Diagnoses / Procedures Referred By Contac t Referred To Contact Diagnoses ZHAO (obstructive sleep apnea) Procedures CONSULT TO SLEEP MEDICINE - ADULT OFFICE/OUTPATIENT [facility] 60 MINUTES Aurora Macdonald MD [address] [place] [address] Jose York APRN.[facility] [address] [place] [address] Referral ID Status Reason Start Date Expiration Date Visits Requested Visits Authorized [id number] Authorized PCP Requested Referral 05/07/2024 05/07/2025 1 1 Specialty Diagnoses / Procedures Referred By Emiliano t Referred To Contact [facility] Diagnoses Chronic pain of right knee Primary osteoarthritis of right knee Right foot pain Left foot pain Procedures CONSULT TO PHYSICAL THERAPY PHYSICAL THERAPY EVALUATION HIGH COMPLEX 45 MINS Aurora Macdonald MD [address] [place] [address] [facility] [address] [place] [address] Referral ID Status Reason Start Date Expiration Date Visits Requested Visits Authorized [id number] Pending Review Auto-Generat ed Referral 06/18/2024 06/13/2025 1 1 Medications Administered Section Inactive Administered Medications - up to 3 most recent administrations Medication Order MAR Action Action Date Dose Rate Site betamethasone acetate-betamethasone sodium phosphate 3 mg injection (CELESTONE) 3 mg, Injection - FOR ORTHO USE ONLY, ONE TIME INJECTION, 1 dose, Starting on Sun09/08/22 at 1152, Until Sun09/08/22 at 1152 Given 09/08/2022 11:52 AM EDT 3 mg Wrist, Right lidocaine (PF) 10 mg/mL (1 %) 0.5 mL injection (XYLOCAINE) 0.5 mL, Injection - FOR ORTHO USE ONLY, ONE TIME INJECTION, 1 dose, Starting on Sun09/08/22 at 1152, Until Sun09/08/22 at 1152 Given 09/08/2022 11:52 AM EDT 0.5 mL Wrist, Right Inactive Administered Medications - up to 3 most recent administrations Medication Order MAR Action Action Date Dose Rate Site betamethasone acetate-betamethasone sodium phosphate 6 mg injection (CELESTONE) 6 mg, Injection - FOR ORTHO USE ONLY, ONE TIME INJECTION, 1 dose, Starting on 6/5/23 at 1642, Until Sun11/06/22 at 1642 Given 11/06/2022 4:42 PM EDT 6 mg Shoul bernice, Right lidocaine (PF) 10 mg/mL (1 %) 4 mL injection (XYLOCAINE) 4 mL, Injection - FOR ORTHO USE ONLY, ONE TIME INJECTION, 1 dose, Starting on Sun11/06/22 at 1642, Until Sun11/06/22 at 1642 Given 11/06/2022 4:42 PM EDT 4 mL Shoul bernice, Right Additional Source Comments INFORMATION SOURCE (unrecogn ized section and content) DATE CREATED AUTHOR 07/30/2020 [facility] DATE CREATED AUTHOR AUTHOR'S ORGANIZ ATION 12/24/2021 [facility] DATE CREATED AUTHOR AUTHOR'S ORGANIZ ATION 03/01/2022 [facility] DATE CREATED AUTHOR AUTHOR'S ORGANIZ ATION 03/30/2022 [facility] DATE CREATED AUTHOR AUTHOR'S ORGANIZ ATION 04/21/2022 [facility] DATE CREATED AUTHOR AUTHOR'S ORGANIZ ATION 06/07/2023 [facility] DATE CREATED AUTHOR AUTHOR'S ORGANIZ ATION 01/04/2025 [facility] Care Teams (unrecognized sec tion and content) Self Pay Specialist Relationship Specialty Start Date End Date Aurora Macdonald [address] [place] [address] PCP - General Internal Medicine 04/13/21 Self Pay Specialist Relationship Specialty Start Date End Date Aurora Macdonald [address] [place] [address] PCP - General Internal Medicine 04/13/21 Self Pay Specialist Relationship Specialty Start Date End Date Aurora Macdonald MD [address] [place] [address] PCP - General 10/01/06 Self Pay Specialist Relationship Specialty Start Date End Date Aurora Macdonald MD [address] [place], [place] [address] PCP - General 10/01/06 Heath Panchal [address] [place] [address] Consulting General Surgery 07/29/21 Self Pay Specialist Relationship Specialty Start Date End Date Aurora Macdonald MD [address] [place] [address] PCP - General 10/01/06 Heath Panchal [address] [place] [address] Consulting General Surgery 07/29/21 Self Pay Specialist Relationship Specialty Start Date End Date Aurora Macdonald [address] [place] [address] PCP - General Internal Medicine 04/13/21 Self Pay Specialist Relationship Specialty Start Date End Date Aurora Macdonald MD [address] [place] [address] PCP - General 10/01/[address] [place] [address] Consulting General Surgery 07/29/21 Self Pay Specialist Relationship Specialty Start Date End Date Aurora Macdonald MD [address] [place] [address] PCP - General 10/01/[address] [place] [address] Consulting General Surgery 07/29/21 Self Pay Specialist Relationship Specialty Start Date End Date Aurora Macdonald [address] [place] [address] PCP - General Internal Medicine 04/13/21 Self Pay Specialist Relationship Specialty Start Date End Date Aurora Macdonald MD [address] [place] [address] PCP - General 10/01/06 Heath Panchal [address] [place] [address] Consulting General Surgery 07/29/21 Self Pay Specialist Relationship Specialty Start Date End Date Aurora Macdonald [address] [place] [address] PCP - General Internal Medicine 04/13/21 Self Pay Specialist Relationship Specialty Start Date End Date Aurora Macdonald MD [address] [place] [address] PCP - General 10/01/06 Heath Panchal [address] [place] [address] Consulting General Surgery 07/29/21 Self Pay Specialist Relationship Specialty Start Date End Date Aurora Macdonald [address] [place] [address] PCP - General Internal Medicine 04/13/21 Self Pay Specialist Relationship Specialty Start Date End Date Aurora Macdonald MD [address] [place] [address] PCP - General 10/01/06 Heath Panchal [address] [place] [address] Consulting General Surgery 07/29/21 Self Pay Specialist Relationship Specialty Start Date End Date Aurora Macdonald [address] [place] [address] PCP - General Internal Medicine 04/13/21 Self Pay Specialist Relationship Specialty Start Date End Date Aurora Macdonald MD [address] [place] [address] PCP - General 10/01/06 Heath Panchal Neftaly [address] [place] [address] Consulting General Surgery 07/29/21 Self Pay Specialist Relationship Specialty Start Date End Date Aurora Macdonald MD [address] [place] [address] PCP - General 10/01/06 Ben Heath Neftaly [address] [place] [address] Consulting General Surgery 07/29/21 Self Pay Specialist Relationship Specialty Start Date End Date Aurora Macdonald MD [address] [place] [address] PCP - General 10/01/[address] [place] [address] Consulting General Surgery 07/29/21 Self Pay Specialist Relationship Specialty Start Date End Date Aurora Macdonald MD [address] [place] [address] PCP - General 10/01/[address] Ben Heath [address] [place] [address] Consulting General Surgery 07/29/21 Self Pay Specialist Relationship Specialty Start Date End Date Aurora Macdonald MD [address] [place] [address] PCP - General 10/01/[address] [place] [address] Consulting General Surgery 07/29/21 Self Pay Specialist Relationship Specialty Start Date End Date Aurora Macdonald [address] [place] [address] PCP - General Internal Medicine 04/13/21 Self Pay Specialist Relationship Specialty Start Date End Date Aurora Macdonald MD [address] [place] [address] PCP - General 10/01/06 Heath Panchal [address] [place] [address] Consulting General Surgery 07/29/21 Self Pay Specialist Relationship Specialty Start Date End Date Aurora Macdonald [address] [place] [address] PCP - General Internal Medicine 04/13/21 Self Pay Specialist Relationship Specialty Start Date End Date Aurora Macdonald MD [address] [place] [address] PCP - General 10/01/[address] [place] [address] Consulting General Surgery 07/29/21 Self Pay Specialist Relationship Specialty Start Date End Date Aurora Macdonald [address] [place] [address] PCP - General Internal Medicine 04/13/21 Self Pay Specialist Relationship Specialty Start Date End Date Aurora Macdonald MD [address] [place] [address] PCP - General 10/01/06 Heath Panchal [address] [place] [address] Consulting General Surgery 07/29/21 Self Pay Specialist Relationship Specialty Start Date End Date Aurora Macdonald MD [address] [place] [address] PCP - General 10/01/06 Ben [address] [place] [address] Consulting General Surgery 07/29/21 Self Pay Specialist Relationship Specialty Start Date End Date Aurora Macdonald MD [address] [place] [address] PCP - General 10/01/06 Ben Heath Neftaly [address] [place] [address] Consulting General Surgery 07/29/21 Self Pay Specialist Relationship Specialty Start Date End Date Aurora Macdonald MD [address] [place] [address] PCP - General 10/01/[address] [place] [address] Consulting General Surgery 07/29/21 Self Pay Specialist Relationship Specialty Start Date End Date Aurora Macdonald MD [address] [place] [address] PCP - General 10/01/06 Ben Heath Ne[address] [place] [address] Consulting General Surgery 07/29/21 Self Pay Specialist Relationship Specialty Start Date End Date Aurora Macdonald MD [address] [place] [address] PCP - General 10/01/[address] [place] [address] Consulting General Surgery 07/29/21 Self Pay Specialist Relationship Specialty Start Date End Date Aurora Macdonald MD [address] [place] [address] PCP - General 10/01/[address] [place] [address] Consulting General Surgery 07/29/21 Self Pay Specialist Relationship Specialty Start Date End Date Aurora Macdonald MD [address] [place] [address] PCP - General 10/01/[address] [place] [address] Consulting General Surgery 07/29/21 Self Pay Specialist Relationship Specialty Start Date End Date Aurora Macdonald MD [address] [place] [address] PCP - General 10/01/[address] [place] [address] Consulting General Surgery 07/29/21 Self Pay Specialist Relationship Specialty Start Date End Date Aurora Macdonald MD [address] [place] [address] PCP - General 10/01/[address] [place] [address] Consulting General Surgery 07/29/21 Self Pay Specialist Relationship Specialty Start Date End Date Aurora Macdonald MD [address] [place] [address] PCP - General 10/01/[address] [place] [address] Consulting General Surgery 07/29/21 Self Pay Specialist Relationship Specialty Start Date End Date Aurora Macdonald MD [address] [place], [place] [address] PCP - General 10/01/06 Heath Panchal [address] [place] [address] Consulting General Surgery 07/29/21 Self Pay Specialist Relationship Specialty Start Date End Date Aurora Macdonald MD [address] [place] [address] PCP - General 10/01/06 Heath Panchal [address] [place] [address] Consulting General Surgery 07/29/21 Self Pay Specialist Relationship Specialty Start Date End Date Aurora Macdonald MD [address] [place] [address] PCP - General 10/01/06 Heath Panchal [address] [place] [address] Consulting General Surgery 07/29/21 Self Pay Specialist Relationship Specialty Start Date End Date Aurora Macdonald MD [address] [place] [address] PCP - General 10/01/06 Heath Panchal [address] [place] [address] Consulting General Surgery 07/29/21 Self Pay Specialist Relationship Specialty Start Date End Date Aurora Macdonald MD [address] [place] [address] PCP - General 10/01/06 Heath Panchal [address] [place] [address] Consulting General Surgery 07/29/21 Self Pay Specialist Relationship Specialty Start Date End Date Aurora Macdonald MD [address] [place] [address] PCP - General 10/01/06 Heath Panchal [address] [place] [address] Consulting General Surgery 07/29/21 Self Pay Specialist Relationship Specialty Start Date End Date Aurora Macdonald MD [address] [place] [address] PCP - General 10/01/06 Heath Panchal [address] [place] [address] Consulting General Surgery 07/29/21 Self Pay Specialist Relationship Specialty Start Date End Date Aurora Macdonald MD [address] [place] [address] PCP - General 10/01/06 Heath Panchal [address] [place] [address] Consulting General Surgery 07/29/21 Self Pay Specialist Relationship Specialty Start Date End Date Aurora Macdonald MD [address] [place] [address] PCP - General 10/01/06 Heath Panchal [address] [place] [address] Consulting General Surgery 07/29/21 Self Pay Specialist Relationship Specialty Start Date End Date Aurora Macdonald MD [address] [place] [address] PCP - General 10/01/06 Heath Panchal [address] [place] [address] Consulting General Surgery 07/29/21 Self Pay Specialist Relationship Specialty Start Date End Date Aurora Macdonald MD [address] [place] [address] PCP - General 10/01/06 Heath Panchal [address] [place] [address] Consulting General Surgery 07/29/21 Self Pay Specialist Relationship Specialty Start Date End Date Aurora Macdonald MD [address] [place] [address] PCP - General 10/01/06 Heath Panchal [address] [place] [address] Consulting General Surgery 07/29/21 Self Pay Specialist Relationship Specialty Start Date End Date Aurora Macdonald MD [address] [place] [address] PCP - General 10/01/06 Heath Panchal [address] [place] [address] Consulting General Surgery 07/29/21 Self Pay Specialist Relationship Specialty Start Date End Date Aurora Macdonald MD [address] [place] [address] PCP - General 10/01/06 Heath Panchal [address] [place] [address] Consulting General Surgery 07/29/21 Self Pay Specialist Relationship Specialty Start Date End Date Aurora Macdonald MD [address] [place], [place] [address] PCP - General 10/01/06 Heath Panchal [address] [place] [address] Consulting General Surgery 07/29/21 Self Pay Specialist Relationship Specialty Start Date End Date Aurora Macdonald MD [address] [place], [place] [address] PCP - General 10/01/06 Heath Panchal [address] [place] [address] Consulting General Surgery 07/29/21 Self Pay Specialist Relationship Specialty Start Date End Date Aurora Macdonald MD [address] [place], [place] [id number] PCP - General 10/01/06 Heath Panchal [address] [place] [address] Consulting General Surgery 07/29/21 Self Pay Specialist Relationship Specialty Start Date End Date Aurora Macdonald MD [address] [place] [address] PCP - General 10/01/06 Heath Panchal [address] [place] [phone] Consulting General Surgery 07/29/21 Self Pay Specialist Relationship Specialty Start Date End Date Aurora Macdonald MD [address] [place] [address] PCP - General 10/01/06 Heath Panchal [address] [place] [phone] Consulting General Surgery 07/29/21 Chris Brush, CLINICAL SYSTEMS EDUCATOR.SUBSTITUTE NURSE [address] [place] [address] Air Pollution Auditor Internal Medicine 05/12/24 Darlene Davies, CLINICAL SYSTEMS EDUCATOR.TOOL ROOM MACHINIST [address] [place], [place] [address] Air Pollution Auditor Internal Medicine 05/12/24 Self Pay Specialist Relationship Specialty Start Date End Date Aurora Macdonald MD [address] [place] [address] PCP - General 10/01/06 Heath Panchal [address] [place] [phone] Consulting General Surgery 07/29/21 Chris Brush, CLINICAL SYSTEMS EDUCATOR.SUBSTITUTE NURSE [address] [place] [address] Air Pollution Auditor Internal Medicine 05/12/24 Darlene Davies APRN.TOOL ROOM MACHINIST [address] [place], [place] [address] Air Pollution Auditor Internal Medicine 05/12/24 Self Pay Specialist Relationship Specialty Start Date End Date Aurora Macdonald MD [address] [place] [address] PCP - General 10/01/06 Heath Panchal [address] [place] [address] Consulting General Surgery 07/29/21 Self Pay Specialist Relationship Specialty Start Date End Date Aurora Macdonald MD [address] [place] [address] PCP - General 10/01/06 Heath Panchal [address] [place] [address] Consulting General Surgery 07/29/21 Chris Brush APRN.SUBSTITUTE NURSE [address] [place] [address] Air Pollution Auditor Internal Medicine 05/12/24 Darlene Davies CLINICAL SYSTEMS EDUCATOR.TOOL ROOM MACHINIST [address] [place], [place] [id number] Air Pollution Auditor Internal Medicine 05/12/24 Self Pay Specialist Relationship Specialty Start Date End Date Aurora Macdonald MD [address] [place], [place] [address] PCP - General 10/01/06 Heath Panchal [address] [place] [phone] Consulting General Surgery 07/29/21 Chris Brush, CLINICAL SYSTEMS EDUCATOR.SUBSTITUTE NURSE [address] [place] [address] Air Pollution Auditor Internal Medicine 05/12/24 Darlene Davies CLINICAL SYSTEMS EDUCATOR.TOOL ROOM MACHINIST [address] [place] [address] Air Pollution Auditor Internal Medicine 05/12/24 Self Pay Specialist Relationship Specialty Start Date End Date Aurora Macdonald MD [address] [place] [address] PCP - General 10/01/06 Heath Panchal [address] [place] [address] Consulting General Surgery 07/29/21 Chris Brush, CLINICAL SYSTEMS EDUCATOR.SUBSTITUTE NURSE [address] [place] [address] Air Pollution Auditor Internal Medicine 05/12/24 Darlene Davies CLINICAL SYSTEMS EDUCATOR.TOOL ROOM MACHINIST [address] [place] [address] Air Pollution Auditor Internal Medicine 08/26/24 Self Pay Specialist Relationship Specialty Start Date End Date Aurora Macdonald MD [address] [place] [address] PCP - General 10/01/06 Heath Panchal [address] [place] [phone] Consulting General Surgery 07/29/21 Chris Brush, CLINICAL SYSTEMS EDUCATOR.SUBSTITUTE NURSE [address] [place] [address] Air Pollution Auditor Internal Medicine 05/12/24 Darlene Davies CLINICAL SYSTEMS EDUCATOR.TOOL ROOM MACHINIST [address] [place] [address] Air Pollution Auditor Internal Medicine 08/26/24 Self Pay Specialist Relationship Specialty Start Date End Date Aurora Macdonald MD [address] [place] [address] PCP - General 10/01/06 Heath Panchal [address] [place] [address] Consulting General Surgery 07/29/21 Chris Brush, CLINICAL SYSTEMS EDUCATOR.SUBSTITUTE NURSE [address] [place] [address] Air Pollution Auditor Internal Medicine 05/12/24 Darlene Davies CLINICAL SYSTEMS EDUCATOR.TOOL ROOM MACHINIST [address] [place] [address] Air Pollution Auditor Internal Medicine 08/26/24 Self Pay Specialist Relationship Specialty Start Date End Date Aurora Macdonald MD [address] [place] [address] PCP - General 10/01/06 Heath Panchal [address] [place] [address] Consulting General Surgery 07/29/21 Chris Brush, CLINICAL SYSTEMS EDUCATOR.SUBSTITUTE NURSE [address] [place] [address] Air Pollution Auditor Internal Medicine 05/12/24 Darlene Davies APRN.TOOL ROOM MACHINIST [address] [place] [address] Air Pollution Auditor Internal Medicine 08/26/24 Self Pay Specialist Relationship Specialty Start Date End Date Aurora Macdonald MD [address] [place] [address] PCP - General 10/01/06 Heath Panchal [address] [place] [address] Consulting General Surgery 07/29/21 Darlene Davies APRN.TOOL ROOM MACHINIST [address] [place] [address] Air Pollution Auditor Internal Medicine 08/26/24 Chris Brush APRN.SUBSTITUTE NURSE [address] [place] [address] Air Pollution Auditor Internal Medicine 10/22/24 Self Pay Specialist Relationship Specialty Start Date End Date Aurora Macdonald MD [address] [place] [address] PCP - General 10/01/06 Heath Panchal [address] [place] [address] Consulting General Surgery 07/29/21 Darlene Davies APRN.TOOL ROOM MACHINIST [address] [place] [address] Air Pollution Auditor Internal Medicine 08/26/24 Chris Brush CLINICAL SYSTEMS EDUCATOR.SUBSTITUTE NURSE [address] [place] [address] [facility] Internal Medicine 10/22/24 Self Pay Specialist Relationship Specialty Start Date End Date Aurora Macdonald MD [address] [place] [address] PCP - General 10/01/06 Heath Panchal [address] [place] [address] Consulting General Surgery 07/29/21 Darlene Davies CLINICAL SYSTEMS EDUCATOR.TOOL ROOM MACHINIST [address] [place] [address] Air Pollution Auditor Internal Medicine 08/26/24 Chris Brush, CLINICAL SYSTEMS EDUCATOR.SUBSTITUTE NURSE [address] [place] [address] [facility] Internal Medicine 10/22/24 Self Pay Specialist Relationship Specialty Start Date End Date Aurora Macdonald MD [address] [place] [address] PCP - General 10/01/06 Heath Panchal [address] [place] [phone] Consulting General Surgery 07/29/21 Darlene Davies APRN.TOOL ROOM MACHINIST [address] [place] [address] Air Pollution Auditor Internal Medicine 08/26/24 Chris Brush APRN.SUBSTITUTE NURSE [address] [place] [address] Air Pollution Auditor Internal Medicine 10/22/24 Self Pay Specialist Relationship Specialty Start Date End Date Aurora Macdonald MD [address] [place] [address] PCP - General 10/01/06 Heath Panchal [address] [place] [phone] Consulting General Surgery 07/29/21 Darlene Davies CLINICAL SYSTEMS EDUCATOR.TOOL ROOM MACHINIST [address] [place] [address] Air Pollution Auditor Internal Medicine 08/26/24 Chris Brush, CLINICAL SYSTEMS EDUCATOR.SUBSTITUTE NURSE [address] [place] [address] Air Pollution Auditor Internal Medicine 10/22/24 Self Pay Specialist Relationship Specialty Start Date End Date Aurora Macdonald MD [address] [place] [address] PCP - General 10/01/06 Heath Panchal [address] [place] [phone] Consulting General Surgery 07/29/21 Darlene Davies CLINICAL SYSTEMS EDUCATOR.TOOL ROOM MACHINIST [address] [place] [address] Air Pollution Auditor Internal Medicine 08/26/24 Chris Brush, CLINICAL SYSTEMS EDUCATOR.SUBSTITUTE NURSE [address] [place] [address] Air Pollution Auditor Internal Medicine 10/22/24 Self Pay Specialist Relationship Specialty Start Date End Date Aurora Macdonald MD [address] [place] [address] PCP - General 10/01/06 Heath Panchal [address] [place] [phone] Consulting General Surgery 07/29/21 Darlene Davies CLINICAL SYSTEMS EDUCATOR.TOOL ROOM MACHINIST [address] [place] [address] Air Pollution Auditor Internal Medicine 08/26/24 Chris Brush CLINICAL SYSTEMS EDUCATOR.SUBSTITUTE NURSE [address] [place] [address] Air Pollution Auditor Internal Medicine 10/22/24 Self Pay Specialist Relationship Specialty Start Date End Date Aurora Macdonald MD [address] [place] [address] PCP - General 10/01/06 Heath Panchal [address] [place] [phone] Consulting General Surgery 07/29/21 Darlene Davies CLINICAL SYSTEMS EDUCATOR.TOOL ROOM MACHINIST [address] [place] [address] Air Pollution Auditor Internal Medicine 08/26/24 Chris Brush CLINICAL SYSTEMS EDUCATOR.SUBSTITUTE NURSE [address] [place] [address] Air Pollution Auditor Internal Medicine 10/22/24 Self Pay Specialist Relationship Specialty Start Date End Date Aurora Macdonald MD [address] [place] [address] PCP - General 10/01/06 Heath Panchal [address] [place] [phone] Consulting General Surgery 07/29/21 Darlene Davies CLINICAL SYSTEMS EDUCATOR.TOOL ROOM MACHINIST [address] [place] [address] Air Pollution Auditor Internal Medicine 08/26/24 Chris Brush, CLINICAL SYSTEMS EDUCATOR.SUBSTITUTE NURSE [address] [place] [address] Air Pollution Auditor Internal Medicine 10/22/24 Self Pay Specialist Relationship Specialty Start Date End Date Aurora Macdonald MD [address] [place] [address] PCP - General 10/01/06 Heath Panchal [address] [facility] [address] [place] [address] Consulting General Surgery 07/29/21 Darlene Davies CLINICAL SYSTEMS EDUCATOR.TOOL ROOM MACHINIST [address] [place] [address] Air Pollution Auditor Internal Medicine 08/26/24 Chris Brush, CLINICAL SYSTEMS EDUCATOR.SUBSTITUTE NURSE [address] [place] [address] Air Pollution Auditor Internal Medicine 10/22/24 Self Pay Specialist Relationship Specialty Start Date End Date Aurora Macdonald MD [address] [place] [address] PCP - General 10/01/06 Heath Panchal [address] [place] [phone] Consulting General Surgery 07/29/21 Darlene Davies CLINICAL SYSTEMS EDUCATOR.TOOL ROOM MACHINIST [address] [place], [place] [id number] Air Pollution Auditor Internal Medicine 08/26/24 Chris Brush, CLINICAL SYSTEMS EDUCATOR.SUBSTITUTE NURSE [address] [place] [address] Air Pollution Auditor Internal Medicine 10/22/24 Source Comments (unrecognize d section and content) In the event this informatio n is protected by the Federal Confidentiality of Alcohol and Drug Abuse Patient Records regulations: The Federal rules restrict any use of the information to criminally investigate or prosecute any alcohol or drug abuse patient.[facility]In the event this information is protected by the Federal Confidentiality of Alcohol and Drug Abuse Patient Records regulations: The Federal rules restrict any use of the information to criminally investigate or prosecute any alcohol or drug abuse patient.[facility] HospitalIn the event this information is protected by the Federal Confidentiality of Alcohol and Drug Abuse Patient Records regulations: The Federal rules restrict any use of the information to criminally investigate or prosecute any alcohol or drug abuse patient.[facility] HospitalIn the event this information is protected by the Federal Confidentiality of Alcohol and Drug Abuse Patient Records regulations: The Federal rules restrict any use of the information to criminally investigate or prosecute any alcohol or drug abuse patient.[facility] HospitalIn the event this information is protected by the Federal Confidentiality of Alcohol and Drug Abuse Patient Records regulations: The Federal rules restrict any use of the information to criminally investigate or prosecute any alcohol or drug abuse patient.[facility] HospitalIn the event this information is protected by the Federal Confidentiality of Alcohol and Drug Abuse Patient Records regulations: The Federal rules restrict any use of the information to criminally investigate or prosecute any alcohol or drug abuse patient.[facility] HospitalIn the event this information is protected by the Federal Confidentiality of Alcohol and Drug Abuse Patient Records regulations: The Federal rules restrict any use of the information to criminally investigate or prosecute any alcohol or drug abuse patient.[facility] HospitalIn the event this information is protected by the Federal Confidentiality of Alcohol and Drug Abuse Patient Records regulations: The Federal rules restrict any use of the information to criminally investigate or prosecute any alcohol or drug abuse patient.[facility] HospitalIn the event this information is protected by the Federal Confidentiality of Alcohol and Drug Abuse Patient Records regulations: The Federal rules restrict any use of the information to criminally investigate or prosecute any alcohol or drug abuse patient.[facility] HospitalIn the event this information is protected by the Federal Confidentiality of Alcohol and Drug Abuse Patient Records regulations: The Federal rules restrict any use of the information to criminally investigate or prosecute any alcohol or drug abuse patient.[facility] HospitalIn the event this information is protected by the Federal Confidentiality of Alcohol and Drug Abuse Patient Records regulations: The Federal rules restrict any use of the information to criminally investigate or prosecute any alcohol or drug abuse patient.[facility] HospitalIn the event this information is protected by the Federal Confidentiality of Alcohol and Drug Abuse Patient Records regulations: The Federal rules restrict any use of the information to criminally investigate or prosecute any alcohol or drug abuse patient.[facility] HospitalIn the event this information is protected by the Federal Confidentiality of Alcohol and Drug Abuse Patient Records regulations: The Federal rules restrict any use of the information to criminally investigate or prosecute any alcohol or drug abuse patient.[facility] HospitalIn the event this information is protected by the Federal Confidentiality of Alcohol and Drug Abuse Patient Records regulations: The Federal rules restrict any use of the information to criminally investigate or prosecute any alcohol or drug abuse patient.[facility] HospitalIn the event this information is protected by the Federal Confidentiality of Alcohol and Drug Abuse Patient Records regulations: The Federal rules restrict any use of the information to criminally investigate or prosecute any alcohol or drug abuse patient.[facility] HospitalIn the event this information is protected by the Federal Confidentiality of Alcohol and Drug Abuse Patient Records regulations: The Federal rules restrict any use of the information to criminally investigate or prosecute any alcohol or drug abuse patient.[facility] HospitalIn the event this information is protected by the Federal Confidentiality of Alcohol and Drug Abuse Patient Records regulations: The Federal rules restrict any use of the information to criminally investigate or prosecute any alcohol or drug abuse patient.[facility] HospitalIn the event this information is protected by the Federal Confidentiality of Alcohol and Drug Abuse Patient Records regulations: The Federal rules restrict any use of the information to criminally investigate or prosecute any alcohol or drug abuse patient.[facility] HospitalIn the event this information is protected by the Federal Confidentiality of Alcohol and Drug Abuse Patient Records regulations: The Federal rules restrict any use of the information to criminally investigate or prosecute any alcohol or drug abuse patient.[facility] HospitalIn the event this information is protected by the Federal Confidentiality of Alcohol and Drug Abuse Patient Records regulations: The Federal rules restrict any use of the information to criminally investigate or prosecute any alcohol or drug abuse patient.[facility] HospitalIn the event this information is protected by the Federal Confidentiality of Alcohol and Drug Abuse Patient Records regulations: The Federal rules restrict any use of the information to criminally investigate or prosecute any alcohol or drug abuse patient.[facility] HospitalIn the event this information is protected by the Federal Confidentiality of Alcohol and Drug Abuse Patient Records regulations: The Federal rules restrict any use of the information to criminally investigate or prosecute any alcohol or drug abuse patient.[facility] HospitalIn the event this information is protected by the Federal Confidentiality of Alcohol and Drug Abuse Patient Records regulations: The Federal rules restrict any use of the information to criminally investigate or prosecute any alcohol or drug abuse patient.[facility] HospitalIn the event this information is protected by the Federal Confidentiality of Alcohol and Drug Abuse Patient Records regulations: The Federal rules restrict any use of the information to criminally investigate or prosecute any alcohol or drug abuse patient.[facility] HospitalIn the event this information is protected by the Federal Confidentiality of Alcohol and Drug Abuse Patient Records regulations: The Federal rules restrict any use of the information to criminally investigate or prosecute any alcohol or drug abuse patient.[facility] HospitalIn the event this information is protected by the Federal Confidentiality of Alcohol and Drug Abuse Patient Records regulations: The Federal rules restrict any use of the information to criminally investigate or prosecute any alcohol or drug abuse patient.[facility] HospitalIn the event this information is protected by the Federal Confidentiality of Alcohol and Drug Abuse Patient Records regulations: The Federal rules restrict any use of the information to criminally investigate or prosecute any alcohol or drug abuse patient.[facility] HospitalIn the event this information is protected by the Federal Confidentiality of Alcohol and Drug Abuse Patient Records regulations: The Federal rules restrict any use of the information to criminally investigate or prosecute any alcohol or drug abuse patient.[facility] HospitalIn the event this information is protected by the Federal Confidentiality of Alcohol and Drug Abuse Patient Records regulations: The Federal rules restrict any use of the information to criminally investigate or prosecute any alcohol or drug abuse patient.[facility] HospitalIn the event this information is protected by the Federal Confidentiality of Alcohol and Drug Abuse Patient Records regulations: The Federal rules restrict any use of the information to criminally investigate or prosecute any alcohol or drug abuse patient.[facility] HospitalIn the event this information is protected by the Federal Confidentiality of Alcohol and Drug Abuse Patient Records regulations: The Federal rules restrict any use of the information to criminally investigate or prosecute any alcohol or drug abuse patient.[facility] HospitalIn the event this information is protected by the Federal Confidentiality of Alcohol and Drug Abuse Patient Records regulations: The Federal rules restrict any use of the information to criminally investigate or prosecute any alcohol or drug abuse patient.[facility] HospitalIn the event this information is protected by the Federal Confidentiality of Alcohol and Drug Abuse Patient Records regulations: The Federal rules restrict any use of the information to criminally investigate or prosecute any alcohol or drug abuse patient.[facility] HospitalIn the event this information is protected by the Federal Confidentiality of Alcohol and Drug Abuse Patient Records regulations: The Federal rules restrict any use of the information to criminally investigate or prosecute any alcohol or drug abuse patient.[facility] HospitalIn the event this information is protected by the Federal Confidentiality of Alcohol and Drug Abuse Patient Records regulations: The Federal rules restrict any use of the information to criminally investigate or prosecute any alcohol or drug abuse patient.[facility] HospitalIn the event this information is protected by the Federal Confidentiality of Alcohol and Drug Abuse Patient Records regulations: The Federal rules restrict any use of the information to criminally investigate or prosecute any alcohol or drug abuse patient.[facility] HospitalIn the event this information is protected by the Federal Confidentiality of Alcohol and Drug Abuse Patient Records regulations: The Federal rules restrict any use of the information to criminally investigate or prosecute any alcohol or drug abuse patient.[facility] HospitalIn the event this information is protected by the Federal Confidentiality of Alcohol and Drug Abuse Patient Records regulations: The Federal rules restrict any use of the information to criminally investigate or prosecute any alcohol or drug abuse patient.[facility] HospitalIn the event this information is protected by the Federal Confidentiality of Alcohol and Drug Abuse Patient Records regulations: The Federal rules restrict any use of the information to criminally investigate or prosecute any alcohol or drug abuse patient.[facility] HospitalIn the event this information is protected by the Federal Confidentiality of Alcohol and Drug Abuse Patient Records regulations: The Federal rules restrict any use of the information to criminally investigate or prosecute any alcohol or drug abuse patient.[facility] HospitalIn the event this information is protected by the Federal Confidentiality of Alcohol and Drug Abuse Patient Records regulations: The Federal rules restrict any use of the information to criminally investigate or prosecute any alcohol or drug abuse patient.[facility] HospitalIn the event this information is protected by the Federal Confidentiality of Alcohol and Drug Abuse Patient Records regulations: The Federal rules restrict any use of the information to criminally investigate or prosecute any alcohol or drug abuse patient.[facility] HospitalIn the event this information is protected by the Federal Confidentiality of Alcohol and Drug Abuse Patient Records regulations: The Federal rules restrict any use of the information to criminally investigate or prosecute any alcohol or drug abuse patient.[facility] HospitalIn the event this information is protected by the Federal Confidentiality of Alcohol and Drug Abuse Patient Records regulations: The Federal rules restrict any use of the information to criminally investigate or prosecute any alcohol or drug abuse patient.[facility] HospitalIn the event this information is protected by the Federal Confidentiality of Alcohol and Drug Abuse Patient Records regulations: The Federal rules restrict any use of the information to criminally investigate or prosecute any alcohol or drug abuse patient.[facility] HospitalIn the event this information is protected by the Federal Confidentiality of Alcohol and Drug Abuse Patient Records regulations: The Federal rules restrict any use of the information to criminally investigate or prosecute any alcohol or drug abuse patient.[facility] HospitalIn the event this information is protected by the Federal Confidentiality of Alcohol and Drug Abuse Patient Records regulations: The Federal rules restrict any use of the information to criminally investigate or prosecute any alcohol or drug abuse patient.[facility] HospitalIn the event this information is protected by the Federal Confidentiality of Alcohol and Drug Abuse Patient Records regulations: The Federal rules restrict any use of the information to criminally investigate or prosecute any alcohol or drug abuse patient.[facility] HospitalIn the event this information is protected by the Federal Confidentiality of Alcohol and Drug Abuse Patient Records regulations: The Federal rules restrict any use of the information to criminally investigate or prosecute any alcohol or drug abuse patient.[facility] HospitalIn the event this information is protected by the Federal Confidentiality of Alcohol and Drug Abuse Patient Records regulations: The Federal rules restrict any use of the information to criminally investigate or prosecute any alcohol or drug abuse patient.[facility] HospitalIn the event this information is protected by the Federal Confidentiality of Alcohol and Drug Abuse Patient Records regulations: The Federal rules restrict any use of the information to criminally investigate or prosecute any alcohol or drug abuse patient.[facility] HospitalIn the event this information is protected by the Federal Confidentiality of Alcohol and Drug Abuse Patient Records regulations: The Federal rules restrict any use of the information to criminally investigate or prosecute any alcohol or drug abuse patient.[facility] HospitalIn the event this information is protected by the Federal Confidentiality of Alcohol and Drug Abuse Patient Records regulations: The Federal rules restrict any use of the information to criminally investigate or prosecute any alcohol or drug abuse patient.[facility] HospitalIn the event this information is protected by the Federal Confidentiality of Alcohol and Drug Abuse Patient Records regulations: The Federal rules restrict any use of the information to criminally investigate or prosecute any alcohol or drug abuse patient.[facility] HospitalIn the event this information is protected by the Federal Confidentiality of Alcohol and Drug Abuse Patient Records regulations: The Federal rules restrict any use of the information to criminally investigate or prosecute any alcohol or drug abuse patient.[facility] HospitalIn the event this information is protected by the Federal Confidentiality of Alcohol and Drug Abuse Patient Records regulations: The Federal rules restrict any use of the information to criminally investigate or prosecute any alcohol or drug abuse patient.[facility] HospitalIn the event this information is protected by the Federal Confidentiality of Alcohol and Drug Abuse Patient Records regulations: The Federal rules restrict any use of the information to criminally investigate or prosecute any alcohol or drug abuse patient.[facility] HospitalIn the event this information is protected by the Federal Confidentiality of Alcohol and Drug Abuse Patient Records regulations: The Federal rules restrict any use of the information to criminally investigate or prosecute any alcohol or drug abuse patient.[facility] HospitalIn the event this information is protected by the Federal Confidentiality of Alcohol and Drug Abuse Patient Records regulations: The Federal rules restrict any use of the information to criminally investigate or prosecute any alcohol or drug abuse patient.[facility] HospitalIn the event this information is protected by the Federal Confidentiality of Alcohol and Drug Abuse Patient Records regulations: The Federal rules restrict any use of the information to criminally investigate or prosecute any alcohol or drug abuse patient.[facility] HospitalIn the event this information is protected by the Federal Confidentiality of Alcohol and Drug Abuse Patient Records regulations: The Federal rules restrict any use of the information to criminally investigate or prosecute any alcohol or drug abuse patient.[facility] HospitalIn the event this information is protected by the Federal Confidentiality of Alcohol and Drug Abuse Patient Records regulations: The Federal rules restrict any use of the information to criminally investigate or prosecute any alcohol or drug abuse patient.[facility] HospitalIn the event this information is protected by the Federal Confidentiality of Alcohol and Drug Abuse Patient Records regulations: The Federal rules restrict any use of the information to criminally investigate or prosecute any alcohol or drug abuse patient.[facility] HospitalIn the event this information is protected by the Federal Confidentiality of Alcohol and Drug Abuse Patient Records regulations: The Federal rules restrict any use of the information to criminally investigate or prosecute any alcohol or drug abuse patient.[facility] HospitalIn the event this information is protected by the Federal Confidentiality of Alcohol and Drug Abuse Patient Records regulations: The Federal rules restrict any use of the information to criminally investigate or prosecute any alcohol or drug abuse patient.[facility] HospitalIn the event this information is protected by the Federal Confidentiality of Alcohol and Drug Abuse Patient Records regulations: The Federal rules restrict any use of the information to criminally investigate or prosecute any alcohol or drug abuse patient.[facility] HospitalIn the event this information is protected by the Federal Confidentiality of Alcohol and Drug Abuse Patient Records regulations: The Federal rules restrict any use of the information to criminally investigate or prosecute any alcohol or drug abuse patient.[facility] HospitalIn the event this information is protected by the Federal Confidentiality of Alcohol and Drug Abuse Patient Records regulations: The Federal rules restrict any use of the information to criminally investigate or prosecute any alcohol or drug abuse patient.[facility] HospitalIn the event this information is protected by the Federal Confidentiality of Alcohol and Drug Abuse Patient Records regulations: The Federal rules restrict any use of the information to criminally investigate or prosecute any alcohol or drug abuse patient.[facility] HospitalIn the event this information is protected by the Federal Confidentiality of Alcohol and Drug Abuse Patient Records regulations: The Federal rules restrict any use of the information to criminally investigate or prosecute any alcohol or drug abuse patient.[facility] HospitalIn the event this information is protected by the Federal Confidentiality of Alcohol and Drug Abuse Patient Records regulations: The Federal rules restrict any use of the information to criminally investigate or prosecute any alcohol or drug abuse patient.[facility] HospitalIn the event this information is protected by the Federal Confidentiality of Alcohol and Drug Abuse Patient Records regulations: The Federal rules restrict any use of the information to criminally investigate or prosecute any alcohol or drug abuse patient.[facility] HospitalIn the event this information is protected by the Federal Confidentiality of Alcohol and Drug Abuse Patient Records regulations: The Federal rules restrict any use of the information to criminally investigate or prosecute any alcohol or drug abuse patient.[facility] HospitalIn the event this information is protected by the Federal Confidentiality of Alcohol and Drug Abuse Patient Records regulations: The Federal rules restrict any use of the information to criminally investigate or prosecute any alcohol or drug abuse patient.[facility] HospitalIn the event this information is protected by the Federal Confidentiality of Alcohol and Drug Abuse Patient Records regulations: The Federal rules restrict any use of the information to criminally investigate or prosecute any alcohol or drug abuse patient.[facility] HospitalIn the event this information is protected by the Federal Confidentiality of Alcohol and Drug Abuse Patient Records regulations: The Federal rules restrict any use of the information to criminally investigate or prosecute any alcohol or drug abuse patient.[facility] HospitalIn the event this information is protected by the Federal Confidentiality of Alcohol and Drug Abuse Patient Records regulations: The Federal rules restrict any use of the information to criminally investigate or prosecute any alcohol or drug abuse patient.[facility] HospitalIn the event this information is protected by the Federal Confidentiality of Alcohol and Drug Abuse Patient Records regulations: The Federal rules restrict any use of the information to criminally investigate or prosecute any alcohol or drug abuse patient.[facility] HospitalIn the event this information is protected by the Federal Confidentiality of Alcohol and Drug Abuse Patient Records regulations: The Federal rules restrict any use of the information to criminally investigate or prosecute any alcohol or drug abuse patient.[facility] HospitalIn the event this information is protected by the Federal Confidentiality of Alcohol and Drug Abuse Patient Records regulations: The Federal rules restrict any use of the information to criminally investigate or prosecute any alcohol or drug abuse patient.[facility] HospitalIn the event this information is protected by the Federal Confidentiality of Alcohol and Drug Abuse Patient Records regulations: The Federal rules restrict any use of the information to criminally investigate or prosecute any alcohol or drug abuse patient.[facility] HospitalIn the event this information is protected by the Federal Confidentiality of Alcohol and Drug Abuse Patient Records regulations: The Federal rules restrict any use of the information to criminally investigate or prosecute any alcohol or drug abuse patient.[facility] HospitalIn the event this information is protected by the Federal Confidentiality of Alcohol and Drug Abuse Patient Records regulations: The Federal rules restrict any use of the information to criminally investigate or prosecute any alcohol or drug abuse patient.[facility] HospitalIn the event this information is protected by the Federal Confidentiality of Alcohol and Drug Abuse Patient Records regulations: The Federal rules restrict any use of the information to criminally investigate or prosecute any alcohol or drug abuse patient.[facility] HospitalIn the event this information is protected by the Federal Confidentiality of Alcohol and Drug Abuse Patient Records regulations: The Federal rules restrict any use of the information to criminally investigate or prosecute any alcohol or drug abuse patient.[facility] HospitalIn the event this information is protected by the Federal Confidentiality of Alcohol and Drug Abuse Patient Records regulations: The Federal rules restrict any use of the information to criminally investigate or prosecute any alcohol or drug abuse patient.[facility] HospitalIn the event this information is protected by the Federal Confidentiality of Alcohol and Drug Abuse Patient Records regulations: The Federal rules restrict any use of the information to criminally investigate or prosecute any alcohol or drug abuse patient.[facility] HospitalIn the event this information is protected by the Federal Confidentiality of Alcohol and Drug Abuse Patient Records regulations: The Federal rules restrict any use of the information to criminally investigate or prosecute any alcohol or drug abuse patient.[facility] HospitalIn the event this information is protected by the Federal Confidentiality of Alcohol and Drug Abuse Patient Records regulations: The Federal rules restrict any use of the information to criminally investigate or prosecute any alcohol or drug abuse patient.[facility] HospitalIn the event this information is protected by the Federal Confidentiality of Alcohol and Drug Abuse Patient Records regulations: The Federal rules restrict any use of the information to criminally investigate or prosecute any alcohol or drug abuse patient.[facility] HospitalIn the event this information is protected by the Federal Confidentiality of Alcohol and Drug Abuse Patient Records regulations: The Federal rules restrict any use of the information to criminally investigate or prosecute any alcohol or drug abuse patient.[facility] Reason for Visit (unrecogniz ed section and content) Reason Comments Established Patient follow up Reason Comments 1 wk postop l trigger thumb release Post Op Follow Up Reason Comments Asthma Reason Onset Date Comments Refill Request 09/28/2021 Reason Comments 2 month follow up Reason Comments Consult Initial BHSW Pt Outr each Reason Comments Prior authorizaton requested Reason Comments grief reaction Reason Onset Date Comments Refill Request 01/20/2022 Reason Comments Prior Authorization on [employer] Reason Comments Results Reason Comments Fax OV note Reason Comments Follow Up Reason Comments Release Of Medical Records Reason Comments Renew HEAP letter Reason Comments Refill Request Reason Comments Medication Request Patient Update Reason Onset Date Comments Refill Request 06/05/2022 Reason Comments F/U 3 Month Reason Onset Date Comments Refill Request 07/18/2022 Reason Comments Prior Authorization Request Reason Comments Orders Reason Comments Shortness of Breath Reason Comments Established Patient Pain Reason Comments New CPAP Reason Comments Medication Problem Reason Comments Patient Update Reason Comments [facility] Ventilator Reason Comments Schedule Surgery Reason Comments Established Patient 8 weeks 3 days post visit wi th Roberta right wrist with injection given and right shoulder pain. Reason Comments Appointment Reason Onset Date Comments Refill Request 01/01/2023 Reason Comments Post Op 1 week 4 days post op Right CTR Reason Comments edema, fatigue, out of breath easier marciano n normal Been worse in past 6 months Reason Comments Medication Problem Reason Onset Date Comments Refill Request 05/07/2023 Reason Comments Established Patient Review medications a nd labwork Reason Comments Urinary Problem X 4-5 days painful u rination Reason Comments Consult Reason Comments 4 month follow up Reason Comments Lab Orders Reason Comments Forms for Community Action Reason Onset Date Comments Refill Request 11/22/2023 Reason Onset Date Comments Refill Request 12/27/2023 Reason Comments F/U 4 month Reason Onset Date Comments Refill Request 05/23/2024 Reason Comments Orders Reason Onset Date Comments Refill Request 08/21/2024 Reason Onset Date Comments Refill Request 08/25/2024 Reason Onset Date Comments Refill Request 09/05/2024 Reason Comments Endometrial Biopsy Reason Onset Date Comments Refill Request 11/03/2024 Reason Onset Date Comments Refill Request 11/07/2024 Reason Comments insurance not covering one touch test st rips Reason Comments Menstrual Problem Reason Onset Date Comments Refill Request 11/25/2024 Reason Comments Prior authorization for CPAP supplies Reason Comments Menstrual Problem Reason Onset Date Comments Refill Request 12/28/2024 Reason Comments Telemedicine FOR RECORDS PERTAINING TO PATIENTS WHO ARE OR HAVE BEEN ENROLLED IN A CHEMICAL DEPENDENCY/SUBSTANCEABUSE PROGRAM, SOME INFORMATION MAY BE OMITTED. This clinical summary was aggregated from multiple sources. Caution should be exercised in using it in the provision of clinical care. This summary normalizes information from multiple sources, and as a consequence, information in this document may materially change the coding, format and clinical context of patient data. In addition, data may be omitted in some cases. CLINICAL DECISIONS SHOULD BE BASED ON THE PRIMARY CLINICAL RECORDS. [facility] [employer] provides no warranty or guarantee of the accuracy or completeness of information in this document.
[2025-01-09 06:09] LABS: Internal QC Validated? YES +Cl - CLEAR BKGD; Pregnancy, Urine Negative Negative; Record Kit Lot#,Urine Preg 0000962302
[2025-01-09] MEDS: Lactated Ringers 1,000 ML 15 ML IV (06:35)
--- NOTE | 2025-01-09 07:12 | PCM.PRE.AN2 ---
ASA Classification* ASA Classification ASA Classification: 3 (BMI >50) Assessment & Plan Anesthesia* Anesthesia Assessment Anesthesia Assessment: Discussed sedation and/or anesthesia options, risks, benefits, and alternatives with patient/parents/legal guardian/POA. Questions invited. The patient/parents/legal guardian/POA seems to understand and agrees to proceed with anesthesia plan. Reviewed the physical assessment, medical history, allergy history and patient home medications list prior to surgery/procedure/anesthetic and documented any changes. Performed airway and anesthesia risk assessments. Anesthesia Type Anesthesia Type: MAC (GA with ETT also explained, anesthesia provider to decide. ) History Source History Obtained from:: Patient Anesthesia Focused Assessment* Temperature: 97.3 F Pulse Rate: 76 Blood Pressure: 132/78 Respiratory Rate: 16 Pulse Ox: 97 Oxygen Delivery Method: Room Air Airway Assessment Mouth opens: >3 cm Mallampati Score: II Teeth Condition: Missing (top left ) Neck Range of motion (ROM): Full ROM Comment: Redundant tissue Labs Anesthesia Preop lab: CBC WBC 8.3 K/mm3 (4.4-11.0) 01/06/25 13:03 01/06/25 RBC 4.50 M/mm3 (4.2-5.4) 01/06/25 13:03 01/06/25 Hgb 13.5 g/dL (12.0-15.0) 01/06/25 13:03 01/06/25 Hct 41.4 % (37-47) 01/06/25 13:03 01/06/25 Plt Count 215 K/mm3 (150-450) 01/06/25 13:03 01/06/25 CHEMISTRY Potassium 4.3 mmol/L (3.3-5.1) 01/06/25 13:03 01/06/25 Sodium 139 mmol/L (133-145) 01/06/25 13:03 01/06/25 BUN 17 mg/dL (4-19) 01/06/25 13:01/06/25 Creatinine 0.72 mg/dL (0.70-1.20) 01/06/25 13:03 01/06/25 Glucose 161 mg/dL (70-99) H 01/06/25 13:03 01/06/25 POC Glucose 193 mg/dL (70-110) H 01/27/21 06:39 01/27/21 COAG PT 14.8 SECONDS (11.7-14.9) 03/03/24 15:29 03/03/24 Urine Test Negative Negative 01/09/25 05:50 01/09/25 Pre-Assessment Diagnosis/Proposed Procedure Planned Operative Procedure(s): HYSTEROSCOPY, DILATION AND CURETTAGE, POSSIBLE POLYPECTOMY WITH SYMPHION Anesthesia History 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 When Was Last Pacemaker Check QUESTION #4 FULL TEXT: You/Your Family Experience fever (hyperthermia) with Anesthesia Any additional information?: No Last Oral Intake Last Oral intake: Last Oral Intake NPO since 20:00 01/09/25 06:28 Meds taken in AM with sips of No 01/09/25 06:28 water? 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 [employer] Female Yes 01/05/25 14:06 HX of Motion Sickness No 01/05/25 14:06 HX of N/V After Surgery No 01/05/25 14:06 Non-Smoker Yes 01/05/25 14:06 Duration of Surgery greater No 01/05/25 14:06 than 60 minutes Number of Risk Factors 2 01/05/25 14:06 PONV Score Moderate Risk 01/05/25 14:06 Any additional information?: No Height & Weight Height & Weight: Anesthesia: Height & Weight Height 5 ft 2.99 in 01/09/25 06:28 Weight: 131 kg 01/09/25 06:28 Body Mass Index (BMI) 51.1 01/09/25 06:28 Respiratory Assessment Respiratory Assessment - sales representative [employer]: Respiratory Tract Infection Hx - sales representative [employer] Hx Respiratory Tract Infection No 01/05/25 14:06 Any additional information?: No STOP Sleep Apnea STOP Sleep Apnea - sales representative [employer]: STOP Sleep Apnea - sales representative [employer] Hx Hypertension No 01/05/25 14:06 Hx Sleep Apnea No 01/05/25 14:06 CPAP Yes 01/27/21 07:55 BIPAP No 01/24/21 14:20 Do you snore loudly (louder No 01/05/25 14:06 than talking or can be heard Do you often feel tired/ No 01/05/25 14:06 fatigued/ sleepy during daytime? Has anyone observed you stop No 01/05/25 14:06 breathing during sleep? STOP Results Negative 01/05/25 14:06 QUESTION #5 FULL TEXT : Do you snore loudly (louder than talking or can be heard through closed doors)? 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 Specify any problems Hx of Preganancy in last 3 No 01/05/25 14:06 Months Nurse Filling Out Transfusion [id number] 01/05/25 14:06 & Questions: Date: 01/05/25 01/05/25 14:06 Time: 14:14 01/05/25 14:06 Patient unable to answer at this time (ie. confused, unrespo Any additional information?: No /Reproduction History /Reproductive History - sales representative [employer]: /Reproductive Hx- sales representative [employer] Hx Now Gestational Age (in weeks): EDC: Hx Hx Para Hx Section SAB No 01/24/21 14:20 Any additional information?: No Active Medications Active Medications: Current Medications Generic Name Dose Route Start Last Admin Trade Name Freq PRN Reason Stop Dose Admin Lactated Ringer's 1,000 mls @ 15 mls/hr 01/09/25 06:15 01/09/25 06:35 IV 15 mls/hr .Q48H NAT Administration PFSH Medical History Bipolar disorder Depression Psoriasis Insulin dependent diabetes mellitus Ambulates with cane Arthritis Anemia Fatty liver Migraine headache Vertigo Injury of back Injury of head and neck History of hiatal hernia Shortness of breath on exertion Gastric reflux Non-smoker CPAP (continuous positive airway pressure) dependence Asthma COPD (chronic obstructive pulmonary disease) Chronic cough History of edema History of echocardiogram Cardiology follow-up encounter History of stress test Hypertension History of irregular heartbeat Bartholin cyst Home Medications ?Medication ?Instructions ?Recorded ?Last Taken ?Type atenolol 25 mg tablet 25 mg PO QHS PALPITATIONS 07/05/13 01/08/25 History duloxetine 30 mg capsule,delayed 30 mg PO DAILY DEPRESSION 07/05/13 01/09/25 History release fluticasone propionate 220 2 puff inhalation BID COPD/ASTHMA 02/03/15 01/09/25 04:30 History mcg/actuation HFA aerosol inhaler omeprazole 40 mg capsule,delayed 20 mg PO QHS PRN PRN GERD 02/03/15 01/08/25 History release insulin glargine 100 unit/mL (3 120 unit SQ QHS DIABETES 08/01/18 01/08/25 History mL) subcutaneous pen insulin aspart U-100 100 unit/mL 30 unit subcut TID 01/05/25 01/08/25 History (3 mL) subcutaneous pen (Novolog FlexPen U-100 Insulin aspart) magnesium 250 mg tablet 250 mg PO DAILY 01/05/25 01/08/25 History Allergy/AdvReac Type Severity Reaction Status Date / Time codeine Allergy Nausea Verified 01/05/25 14:00 Environmental Allergies: Allergy ITCHY EYES Verified 01/05/25 14:01 Uncoded (dust mites) hydrocodone bitartrate (From AdvReac Nausea Verified 01/05/25 14:00 Vicodin) latex AdvReac Rash Verified 01/05/25 14:00 nabumetone (From Relafen) AdvReac Upset Verified 01/05/25 14:00 Stomach Surgical History History of carpal tunnel release History of colonoscopy History of plastic surgery History of D&C History of hand surgery History of foot surgery Social History Smoking Status: Never smoker Addt'l Information Additional Findings: Patient currently having some GERD symptoms despite taking meds, is needing head of bed elevated. Patient also states she is very susceptible to anesthesia and it doesnt take alot to get her off to sleep. Hasnt used albuterol in several years for asthma. Review of Systems (Anesthesia) ROS Narrative System reviewed and no additional complaints, except as documented.
[2025-01-09] MEDS: Midazolam 2 MG/2 ML Syringe IV (07:25)
[2025-01-09] MEDS: Lactated Ringers 1,000 ML 1000 ML IV (07:25)
--- NOTE | 2025-01-09 07:30 | EMB_PTH ---
PATIENT: MYLES YEAGER ABUACCT #:[id number] LOC: [facility] [place] U#:[id number] AGE/SX: 54/F ROOM: RE01/09/[address]: Dr. Juanita Tello, MDDOB: 1970 BED: DIS: 01/09/2025 SPEC #: [id number] RECD: 01/09/25 10:05 STATUS: NILE VLADISLAV #: [id number] KENZIE: 01/09/25 07:[address]: Juanita Tello DEPT: SURGICAL PATHOLOGY RECD BY: Donaldo Hurtado ENTERED: 01/09/25 11:17 SP TYPE: ENDOM BX/C DAMION DR: Dr. Debo Bowers MD Tissues: A - Endometrium, NOS Procedures: Surgery Specimen Level IV HEADER OPERATION: Hysteroscopy, D&C PRE-OP DIAGNOSIS: Abnormal uterine bleeding, endometrial polyp on EMB TISSUE SUBMITTED: A- Endometrial curettings, endometrial polyp MICROSCOPIC DIAGNOSIS A. Endometrium, curettage: * Fragments of disordered proliferative endometrium suggestive of endometrial polyp. * Fragments of superficial myometrium. MICROSCOPIC DESCRIPTION Slides are reviewed. GROSS DESCRIPTION A. Received in formalin labeled with the patient's name and date of . Designated as endometrial curettings & endometrial polyp is a 2.7 x 2.5 0.5 cm aggregate of pink-red, soft to rubbery fragments admixed with clotted blood and mucoid material. Entirely submitted in 2 cassettes. DE 01/09/2025 CPT:01179
[2025-01-09] MEDS: Lidocaine 1% (5 ml sdv) 5 ML Vial IV (07:31)
[2025-01-09] MEDS: fentaNYL 100 MCG/2 ML Ampul IV (07:31)
--- NOTE | 2025-01-09 07:56 | OP.PCM_ITS ---
Operative Report (Standard) Operative Information Date of Procedure: 01/09/25 Pre-Operative Diagnosis: AUB, Endometrial polyp Post-Operative Diagnosis: same Surgery/Procedure Performed: Hysteroscopy, D&C, polypectomy interactive media marketing director: No Type of Anesthesia: General RN Documented Start/Stop Times: Operation Date: 01/09/25 07:30 Case Time Into Pre-Op 01/09/25 06:03 Out of Pre-Op 01/09/25 07:21 Anesthesia Start 01/09/25 07:25 Into Room 01/09/25 07:25 Procedure Start 01/09/25 07:43 Procedure Start Time: 07:43 Procedure Stop Time: 07:54 Select all DRAINS/GRAFTS/IMPLANTS that apply: None Estimated Blood Loss: <5cc Fluids Replaced: 500 Specimen collected: Yes Description of specimen(s) removed: endometrial curettings and endometrial polyp Description of surgery: Informed consent was obtained the patient was taken the operating room she was placed in supine position. She was given anesthesia. She was then placed in the [facility] where she was prepped and draped in the normal sterile fashion. At this time the weighted speculum was placed in the posterior fornix of vagina. Single-tooth tenaculum was used to gently grasp the anterior lip the cervix. At this time the uterine cavity was sounded to approximately 12 cm. Gentle dilatation was performed once adequate dilatation of the cervix was achieved the hysteroscope using normal saline as a distention medium was placed. Tubal ostia visualized. small polyp noted on anterior aspect of uterus. Symphion resecting device used to obtain endometrial curettings and to perform polypectomy. Tissue will be sent to pathology for evaluation. Tenaculum removed. Good hemostasis. Instrument, lap count correct x 2. Vaginal Sweep was negative. Surgical Findings: Small endometrial polyp on anterior aspect Complications Complications: No Admit VTE Documentation VTE Present on Admission: Yes VTE Mechan Device Prophylaxis: SCD's VTE Pharm Prophylaxis ordered?: No Reason prophylaxis not ordered: Treatment Not Indicated
--- NOTE | 2025-01-09 07:56 | PCM.DC ---
Discharge Instructions DC O2, CPAP, BIPAP needs Home O2 Discharge instructions: No Dressing / Incision May resume sexual activity in: 1 week Dressing / Incision Call your doctor if you observe: Fever of 101 or Higher, Inability to urinate, Using more than 1 pad per hour and Uncontrolled pain Follow Up Care Please Follow Up With: Juanita Tello MD When: I will call you with pathology results in 1-2 weeks, if you feel you need an appointment please call [phone] Test Results: Test results from this visit will be discussed in further detail at your follow-up appointment, if applicable. Discharge Plan Admission Attending Provider: Juanita Tello Primary Care Provider: Debo Bowers Instructions Print Language: Hungarian Discharge Orders/Prescriptions Prescriptions: No Action atenolol 25 MG tablet 25 mg PO QHS duloxetine 30 MG capsule 30 mg PO DAILY Patient Comments: UPSETS STOMACH, TAKES FEW TIMES A WEEK omeprazole 40 MG capsule 20 mg PO QHS PRN PRN (Reason: GERD) fluticasone propionate 1 INHALER inhaler 2 puff inhalation BID Patient Comments: MORE LIKE ONCE A DAY insulin glargine 100 UNIT/ML insulin pen 120 unit SQ QHS Patient Comments: 2 INJECTIONS 55 UNITS EACH magnesium 250 mg tablet 250 mg PO DAILY insulin aspart U-100 [Novolog FlexPen U-100 Insulin] 100 unit/mL (3 mL) insulin pen 30 unit subcut TID Other Ambulatory Orders: 12 Lead EKG (Routine) Timeframe: 20250106 Location: None Selected Ordered By: Dr. Juanita Tello Referrals / Follow Up: Debo Bowers MD [Primary Care Provider] - Disposition Disposition (needs filled in before D/C Order can be placed): Home, Self Care
--- NOTE | 2025-01-09 08:09 | PCM.POST.ANE ---
Anesthesia: Postop Eval I Current Vital Signs Temperature: 97.4 F Pulse Rate: 80 Blood Pressure: 145/85 Respiratory Rate: 20 Pulse Ox: 98 Oxygen Delivery Method: Room Air Assessment Airway patent: Yes Spontaneous unlabored respirations: Yes Mental status: Awake and Calm nausea: No Vomiting: No Anesthesia Complication: No Fluid Hydration Crystalloid volume administer (ml): 500 Total IV fluid infused: 500 Progress Note Anesthesia document: Postop Eval 1 completed: Yes
--- NOTE | 2025-01-09 08:56 | NURSING ---
went into patient room to do post op assessment. Patient on phone, put her index finger up in the air and said [facility] Told patient to ring when she is ready for nurse and left room.
--- NOTE | 2025-01-09 10:30 | POSTOPAN2_ITS ---
Anesthesia Postop Eval I Sum Postop Eval Completion status Anesthesia document: Postop Eval 1 completed: Yes Anesthesia Postop Eval I Summary Anesthesia Postop Eval I Summary: Anesthesia Postop Eval I: Assessment Summary Airway patent Yes 01/09/25 08:10 AVIONICS TEST [email or web address] Spontaneous unlabored Yes 01/09/25 08:10 AVIONICS TEST [email or web address] respirations Mental status Awake,Calm 01/09/25 08:10 AVIONICS TEST [email or web address] nausea No 01/09/25 08:10 AVIONICS TEST [email or web address] Vomiting No 01/09/25 08:10 AVIONICS TEST [email or web address] Anesthesia Postop Eval I: Fluid Summary Crystalloid volume administer 500 01/09/25 08:10 AVIONICS TEST [email or web address] (ml) Colloids volume administered ( ml) Blood Product volume administered (ml) Total IV fluid infused 500 01/09/25 08:10 AVIONICS TEST [email or web address] Anesthesia Postop Eval I: Summary Notes Anesthesia Complication No 01/09/25 08:10 AVIONICS TEST [email or web address] Anesthesia Complication Comment: Post-operative progress note Anesthesia: Postop Eval II Evaluation Mental status: Awake Pain Level: 0 nausea: No Vomiting: No
--- NOTE | 2025-01-09 10:30 | PCM.POSTANE2 ---
Anesthesia Postop Eval I Sum Postop Eval Completion status Anesthesia document: Postop Eval 1 completed: Yes Anesthesia Postop Eval I Summary Anesthesia Postop Eval I Summary: Anesthesia Postop Eval I: Assessment Summary Airway patent Yes 01/09/25 08:10 [email or web address] Spontaneous unlabored Yes 01/09/25 08:10 [email or web address] respirations Mental status Awake,Calm 01/09/25 08:10 [email or web address] nausea No 01/09/25 08:10 [email or web address] Vomiting No 01/09/25 08:10 [email or web address] Anesthesia Postop Eval I: Fluid Summary Crystalloid volume administer 500 01/09/25 08:10 [email or web address] (ml) Colloids volume administered ( ml) Blood Product volume administered (ml) Total IV fluid infused 500 01/09/25 08:10 [email or web address] Anesthesia Postop Eval I: Summary Notes Anesthesia Complication No 01/09/25 08:10 [email or web address] Anesthesia Complication Comment: Post-operative progress note Anesthesia: Postop Eval II Evaluation Mental status: Awake Pain Level: 0 nausea: No Vomiting: No
== END 2025-01-09 09:47 | disposition home or self-care (01) ==
LOC: SDC 05:43 → AC 05:44
PROVIDERS: PCP Internal Medicine; Referring Provider Obstetrics & Gynecology; Visit Provider Obstetrics & Gynecology
PROC: 0UB98ZZ Excision of Uterus, Via Natural or Artificial Opening Endoscopic (ICD-10-PCS; CPT 58558; principal; 2025-01-09 07:15)
DX: N84.0 Polyp of corpus uteri (principal); J44.9 Chronic obstructive pulmonary disease, unspecified; Z79.4 Long term (current) use of insulin; E11.9 Type 2 diabetes mellitus without complications; I10 Essential (primary) hypertension; M79.7 Fibromyalgia; K21.9 Gastro-esophageal reflux disease without esophagitis; F32.A Depression, unspecified; F41.1 Generalized anxiety disorder; Z79.899 Other long term (current) drug therapy; Z87.891 Personal history of nicotine dependence
CPT/HCPCS: 58558; 00952; 36415; 80048; 81025; 82962; 83036; 85027; 88305; 93005; J2405